=== PATIENT | male | born 1955 ===

== ENCOUNTER 2022-08-18 08:16 | Outpatient (CLI) | payer MEDICARE, SELFPAY ==
--- NOTE | 2022-08-18 | EST_ITS ---
Patient Info Name: Edwin Rhoades Age: 66 years : 1955 Gender: Male Ht: 66 in Wt: 225 lbs BSA: 2.22 m2 Exam Date: 08/18/2022 9:07 AM Exam Location: [facility] Stress Patient Status: Outpatient Admit Date: 08/18/2022 Staff Ordering Physician: Mely Alejandre Attending Provider: Mely Alejandre Exercise Technologist: Dilcia Bishop RDCS Exercise Physician: Jeronimo Neves DO Exam Type: CA stress test treadmill Study Info Indications R07.9 - Chest pain, unspecified A treadmill exercise stress test was performed. Summary 1. 1. Negative Matt exercise stress test for ischemic ST changes by ECG criteria. 2. 2. Reduced functional capacity, achieving 6.8 METs of workload. 3. 3. Baseline hypertension with hypertensive response to exercise. 4. 4. Appropriate HR response to exercise. 5. 5. Appropriate HR recovery at 1 minute post exercise. 6. 6. No imaging with stress testing. 7. 7. Patient informed of the above results. Protocol: Matt Stress ECG Details Stage: REST Duration (min): 1 min : 52 sec Speed (mph): 0.0 Grade (%): 0 HR (bpm): 68 SBP (mmHg): 155 DBP (mmHg): 86 METS: --- Stage: REST Duration (min): 5 min : 31 sec Speed (mph): 0.0 Grade (%): 0 HR (bpm): 88 SBP (mmHg): 155 DBP (mmHg): 86 METS: --- Stage: STAGE 1 Duration (min): 1 min : 0 sec Speed (mph): 1.7 Grade (%): 10 HR (bpm): 95 SBP (mmHg): 155 DBP (mmHg): 86 METS: --- Stage: STAGE 1 Duration (min): 2 min : 0 sec Speed (mph): 1.7 Grade (%): 10 HR (bpm): 106 SBP (mmHg): 155 DBP (mmHg): 86 METS: --- Stage: STAGE 1 Duration (min): 3 min : 0 sec Speed (mph): 1.7 Grade (%): 10 HR (bpm): 116 SBP (mmHg): 191 DBP (mmHg): 91 METS: --- Stage: STAGE 2 Duration (min): 1 min : 0 sec Speed (mph): 2.5 Grade (%): 12 HR (bpm): 129 SBP (mmHg): 191 DBP (mmHg): 91 METS: --- Stage: STAGE 2 Duration (min): 1 min : 12 sec Speed (mph): 2.5 Grade (%): 12 HR (bpm): 131 SBP (mmHg): 191 DBP (mmHg): 91 METS: --- Stage: RECOVERY Duration (min): 0 min : 47 sec Speed (mph): 0.0 Grade (%): 0 HR (bpm): 122 SBP (mmHg): 208 DBP (mmHg): 87 METS: --- Stage: RECOVERY Duration (min): 1 min : 47 sec Speed (mph): 0.0 Grade (%): 0 HR (bpm): 109 SBP (mmHg): 208 DBP (mmHg): 87 METS: --- Stage: RECOVERY Duration (min): 2 min : 47 sec Speed (mph): 0.0 Grade (%): 0 HR (bpm): 104 SBP (mmHg): 197 DBP (mmHg): 83 METS: --- Stage: RECOVERY Duration (min): 3 min : 47 sec Speed (mph): 0.0 Grade (%): 0 HR (bpm): 107 SBP (mmHg): 197 DBP (mmHg): 83 METS: --- Stage: RECOVERY Duration (min): 4 min : 47 sec Speed (mph): 0.0 Grade (%): 0 HR (bpm): 96 SBP (mmHg): 179 DBP (mmHg): 83 METS: --- Stage:
== END 2022-08-18 08:17 | disposition home or self-care (01) ==
DX: R07.9 Chest pain, unspecified (principal)
CPT/HCPCS: 93017

== ENCOUNTER 2024-08-07 11:29 | Inpatient (IN) | payer MEDICARE, SELFPAY ==
[2024-08-07] VITALS (10 sets, daily range): BP systolic 122–184; BP diastolic 75–94; PULSE 90–115; RESP 15–23; TEMP 36.4–37.2; O2SAT 94–98
--- NOTE | ~2024-08-07 | XR_ITS ---
EXAMINATION: XR chest 2V DATE: 08/07/2024 12:47 INDICATION: Shortness of breath. Vomiting. TECHNIQUE: Frontal and lateral views of the chest were obtained. COMPARISON: CT abdomen and pelvis 08/07/2024 FINDINGS: There is no pneumonia, pleural effusion, or pneumothorax. The heart size is normal. Surgica l clips in the right upper quadrant are likely from cholecystectomy. IMPRESSION: 1. No acute cardiopulmonary disease. Reviewed, dictated and finalized at location B.
--- NOTE | ~2024-08-07 | CT_ITS ---
CT abdomen pelvis wo con Ordering provider: Andreas Crespo MD History: 68 years Male with . abdominal pain . Comparison: August 09, 2024 Technique: CT abdomen and pelvis without IV and without oral contrast. Automated exposure control and iterative reconstruction technique were employed. The dose-length product was 1361.95 mGy-cm. Findings: VISUALIZED LOWER CHEST: Subsegmental atelectatic changes in the right lung base. UPPER ABDOMINAL ORGANS: Liver: Liver cirrhosis with lobulation of the outline. Fluid is seen around the liver which may indic ate ascites and less likely subcapsular hematoma. Gallbladder: Status post cholecystectomy. Spleen: Normal. Minimal fluid seen around the spleen. Stomach/duodenum: Nasogastric tube seen in the stomach with the tip in the right humerus. Pancreas: Atrophic. Adrenals: Normal. Kidneys: Tiny cyst in the left kidney midpole. Contrast is seen in both kidneys. PELVIC ORGANS: The bladder is normal. Contrast is seen in the bladder. BOWEL AND MESENTERY: Colon: No evidence of diverticulitis. Normal appendix. Small Bowel: Slight thickening of the wall of the bowel in the pelvic area is seen otherwise, No obst ruction. Peritoneum/mesentery: No free air. Ascites is seen in the right paracolic gutter and in the pelvis. N o mesenteric lymphadenopathy. Stranding in the mesentery of the pelvic area is seen which may indicate edema or inflammatory change s. Small mesenteric lymph nodes are seen. RETROPERITONEUM: Mild atheromatous disease of the abdominal aorta. No retroperitoneal lymphadenopat hy. MUSCULOSKELETAL: Superficial soft tissues: A fat-containing right inguinal hernia is noted. Otherwise, The superficial soft tissues are normal. Bones: Age appropriate degenerative changes of the spine. IMPRESSION: 1. Ascites seen in the pelvis, around the liver, right paracolic gutter and around the spleen. Possi bility of subcapsular hematoma around the liver cannot be excluded. 2. Liver cirrhosis. 3. Fat stranding in the mesentery which may indicate inflammatory changes or edema. 4. Thickened wall of the small bowel in the area of the pelvis which may indicate enteritis. No air is seen in the wall. Ischemia cannot be excluded. This thickening is slightly more prominent than the previous study. Reviewed, dictated and finalized at location A. IMPRESSION: 1. Ascites seen in the pelvis, around the liver, right paracolic gutter and ar ound the spleen. Possibility of subcapsular hematoma around the liver cannot be excluded. 2. Liver cirrhosis. 3. Fat stranding in the mesentery which may indicate inflammatory changes or e fanny. 4. Thickened wall of the small bowel in the area of the pelvis which may indic ate enteritis. No air is seen in the wall. Ischemia cannot be excluded. This th ickening is slightly more prominent than the previous study.
--- NOTE | ~2024-08-07 | US_ITS ---
EXAMINATION: US paracentesis abd w/image DATE: 08/07/2024 16:22 INDICATION: Ascites. TECHNIQUE: The procedure and its risks and benefits were discussed with the patient. Potential risks discussed included bleeding and infection. The skin was prepped and draped in sterile fashion. 1% lid ocaine was used for local anesthesia. Under ultrasound guidance, a 5 Fr catheter with trochar was adv anced into the ascites in the right upper quadrant. Fluid was aspirated into vacuum bottles. The cath eter was removed, and a dressing was applied. There were no immediate complications. FINDINGS: Ultrasound images demonstrate ascites and the catheter within the fluid. IMPRESSION: 1. Successful ultrasound-guided paracentesis yielding 800 mL of dark reddish fluid. Reviewed, dictated and finalized at location A. IMPRESSION: 1. Successful ultrasound-guided paracentesis yielding 800 mL of dark reddish f luid.
--- NOTE | ~2024-08-07 | XR_ITS ---
Upright portable view of the abdomen Clinical history: NG tube placement Findings: NG tube side-port probably just the GE junction. Bowel gas pattern is nonspecific. No evide nce for obstruction or free air. No abnormal mass lesion or calcification is seen. Osseous structures are intact. Impression: NG tube side-port just at the GE junction. Further advancement into the stomach recommended. Reviewed, dictated and finalized at location . T FINISHER Impression: NG tube side-port just at the GE junction. Further advancement into the stomach recommended.
--- NOTE | ~2024-08-07 | XR_ITS ---
EXAMINATION: XR abdomen obstructive series DATE: 08/09/2024 08:32 INDICATION: Adynamic ileus. TECHNIQUE: Upright and supine views of the abdomen on 4 radiographs were obtained. COMPARISON: CT abdomen and pelvis 08/07/24 FINDINGS: There are mildly dilated loops of small bowel. The colon is normal in caliber. No free intr aperitoneal gas. Surgical clips in the right upper quadrant are likely from cholecystectomy. IMPRESSION: 1. Dilated small bowel, likely adynamic ileus. Reviewed, dictated and finalized at location []
--- NOTE | ~2024-08-07 | CT_ITS ---
EXAMINATION: CT abdomen pelvis wo con DATE: 08/09/2024 16:59 INDICATION: R/O perforation TECHNIQUE: Computed tomography (CT) of the abdomen and pelvis was performed without intravenous contr ast. Automated exposure control and iterative reconstruction technique were employed. The dose-length product was 1535.24 mGy-cm. COMPARISON: X-ray abdomen, same date; CT abdomen pelvis 08/07/2024. FINDINGS: Lower thorax: Bibasilar scar/atelectasis. Coronary artery calcifications. Liver: Cirrhosis. Steatosis. Biliary/Gallbladder: Gallbladder is absent. No bile duct dilation. Pancreas: No mass or duct dilation. Spleen: Normal. Adrenals:No mass. Kidneys: No suspicious mass, obstructing stone, or hydronephrosis. GI tract: Dilated proximal small bowel but gradually narrows in caliber, without focal transition poi nt. Possible wall thickening in the distal small bowel. No pneumatosis. Appendix not confidently iden tified. Diverticulosis without diverticulitis. Mesentery/Peritoneum: Peritoneal and greater omentum nodularity. Moderate volume ascites. Retroperitoneum: No mass. Atherosclerotic abdominal aortic and/or arterial calcifications. Pelvis: Pelvic organs are within normal limits. Soft Tissues: Small uncomplicated fat-containing right inguinal and umbilical hernias. Bones: No acute osseous finding. IMPRESSION: Cirrhosis. Dilated proximal and mid small bowel without discrete transition point, likely representing ileus. Ea rly obstruction not excluded. No evidence of pneumoperitoneum. Likely persistent distal small bowel wall thickening as can be seen with enteritis. Peritoneal carcinomatosis with moderate ascites. Reviewed, dictated and finalized at location K. IMPRESSION: Cirrhosis. Dilated proximal and mid small bowel without discrete transition point, likely representing ileus. Early obstruction not excluded. No evidence of pneumoperito neum. Likely persistent distal small bowel wall thickening as can be seen with enteri tis. Peritoneal carcinomatosis with moderate ascites.
--- NOTE | ~2024-08-07 | XR_ITS ---
EXAMINATION: XR_FLGTUBINS_CR DATE: 08/10/2024 15:23 INDICATION: Ileus requiring nasogastric tube placement with unsuccessful nonguided attempted placemen t due to prior broken nose TECHNIQUE: Utilizing fluoroscopic observation the nasogastric tube was placed into the patient's left nares and advanced into the stomach. 2 fluoroscopic images were recorded. The amount of fluoroscopy time used during this procedure was 1.0 minutes. Total DAP was 3.437 Gycm^2. COMPARISON: None. FINDINGS: Image demonstrates the distal tip in proximal side port of the nasogastric tube position within the b rayne of the stomach. IMPRESSION: 1. Successful fluoroscopic guided placement of a nasogastric tube which is in expected position with distal tip and proximal side port in the body of the stomach. Reviewed, dictated and finalized at location A. IMPRESSION: 1. Successful fluoroscopic guided placement of a nasogastric tube which is in e xpected position with distal tip and proximal side port in the body of the stom ach.
--- NOTE | ~2024-08-07 | US_ITS ---
EXAMINATION: US paracentesis abd w/image DATE: 08/11/2024 10:47 INDICATION: Ascites. TECHNIQUE: The procedure and its risks and benefits were discussed with the patient. Potential risks discussed included bleeding and infection. The skin was prepped and draped in sterile fashion. 1% lid ocaine was used for local anesthesia. Under ultrasound guidance, a 5 Fr catheter with trochar was adv anced into the ascites in the lateral right abdomen. Fluid was aspirated into vacuum bottles. The cat heter was removed, and a dressing was applied. There were no immediate complications. FINDINGS: Ultrasound images demonstrate ascites and the catheter within the fluid. IMPRESSION: 1. Successful ultrasound-guided paracentesis yielding 4400 mL of reddish fluid. Reviewed, dictated and finalized at location A. IMPRESSION: 1. Successful ultrasound-guided paracentesis yielding 4400 mL of reddish fluid .
--- NOTE | ~2024-08-07 | CT_ITS ---
EXAMINATION:CT diagnostic chest w con DATE: 08/11/2024 10:49 INDICATION: Metastatic disease. TECHNIQUE: Computed tomography (CT) of the chest was performed with 75 mL Omnipaque 350 intravenous c ontrast. Automated exposure control and iterative reconstruction technique were employed. The dose-le ngth product (DLP) was 503.83 mGy-cm. COMPARISON: CT abdomen and pelvis 08/07/2024 FINDINGS: There is mild emphysema. There is mild atelectasis bilaterally. There is elevation of right hemidiaphragm. There is a small sliding hernia. The nasogastric tube tip is in the stomach. The live r demonstrates a nodular surface contour, consistent with cirrhosis. There is a moderate volume of as cites. Peritoneal fat stranding and nodularity are noted, consistent with carcinomatosis. There is ed immanuel in right chest wall and the posterior chest wall. There is severe cervical spondylosis and mild t horacic spondylosis. IMPRESSION: 1. Peritoneal carcinomatosis. Moderate volume of ascites. 2. Cirrhosis of the liver. Reviewed, dictated and finalized at location B.
--- NOTE | ~2024-08-07 | XR_ITS ---
EXAM: XR abdomen gastric tube insert DATE: 08/19/2024 18:55 HISTORY: NG Replacement. . COMPARISON: 08/18/2024. FINDINGS: Subsegmental dependent bilateral airspace disease. Cholecystectomy clips. NG tube, tip and side port project over the stomach. Normal bowel gas pattern. No degenerative changes in the spine. IMPRESSION: NG tube, in good position. Reviewed, dictated and finalized at location K. UCTION MACHINE TENDER IMPRESSION: NG tube, in good position.
--- NOTE | ~2024-08-07 | XR_ITS ---
Upright portable view of the abdomen Clinical history: NG tube placement Findings: NG tube side-port is just below the GE junction. Bowel gas pattern is nonspecific. No evide nce for obstruction or free air. No abnormal mass lesion or calcification is seen. Osseous structures are intact. Impression: NG tube side port just below the GE junction. Again, further advancement should be considered to ensu re adequate placement in the stomach. Reviewed, dictated and finalized at location . T CAPTAIN Impression: NG tube side port just below the GE junction. Again, further advancement should be considered to ensure adequate placement in the stomach.
--- NOTE | ~2024-08-07 | XR_ITS ---
Upright portable view of the abdomen Clinical history: NG tube placement Findings: NG tube is in satisfactory position. Bowel gas pattern is nonspecific. No evidence for obst ruction or free air. No abnormal mass lesion or calcification is seen. Osseous structures are intact. Impression: NG tube in satisfactory position. Reviewed, dictated and finalized at [facility]. T OF HOUSE MANAGER Impression: NG tube in satisfactory position.
--- NOTE | ~2024-08-07 | XR_ITS ---
EXAMINATION: XR abdomen gastric tube rechec DATE: 08/19/2024 10:25 INDICATION: Nasogastric tube adjustment. TECHNIQUE: An upright view of the abdomen was obtained. COMPARISON: Abdomen radiograph at 7:12 AM FINDINGS: The lower abdomen is excluded. There are dilated loops of small bowel. The nasogastric tube tip is in the distal stomach. Surgical clips in the right upper quadrant are likely from cholecystec escobar. A left upper extremity peripherally inserted central venous catheter (PICC) is seen with tip in the superior vena cava. IMPRESSION: 1. Nasogastric tube tip in the distal stomach. 2. Dilated small bowel, consistent with adynamic ileus versus small bowel obstruction. Reviewed, dictated and finalized at location A. ORE [employer] OFFICER IMPRESSION: 1. Nasogastric tube tip in the distal stomach. 2. Dilated small bowel, consistent with adynamic ileus versus small bowel obstr uction.
--- NOTE | ~2024-08-07 | XR_ITS ---
XR abdomen/kub 1V Ordering provider: NILESH Medina History: . Ileus vs SBO . Comparison: August 14, 2024 FINDINGS: BOWEL: Dilated small bowel loops are seen in the mid abdomen contrast is seen in the colon. Nasogastr ic tube is seen with the tip in the distal stomach. ORGANOMEGALY: None. SIGNIFICANT PATHOLOGIC CALCIFICATIONS: None. OTHER: No free air is seen under the diaphragm. IMPRESSION: Dilated small bowel with contrast seen in the large bowel which may indicate partial obstruction. Fol low-up advised. Reviewed, dictated and finalized at location A. TY ATTORNEY GENERAL IMPRESSION: Dilated small bowel with contrast seen in the large bowel which may indicate pa rtial obstruction. Follow-up advised.
--- NOTE | ~2024-08-07 | US_ITS ---
EXAMINATION: US right upper quadrant DATE: 08/08/2024 19:39 INDICATION: cirrhosis TECHNIQUE: Multiple grayscale and Doppler ultrasound images of the right upper quadrant were obtained . COMPARISON: CT abdomen pelvis 08/07/2024. FINDINGS: Pancreas not well visualized. The liver is small, with increased echogenicity and heterogen eous echotexture. Liver surface nodularity. Preserved hepatopetal flow in the main portal vein. Statu s post cholecystectomy. The common bile duct measures 5 mm. IMPRESSION: Cirrhosis. Reviewed, dictated and finalized at location K. IMPRESSION: Cirrhosis.
--- NOTE | ~2024-08-07 | CT_ITS ---
EXAMINATION: CT abdomen pelvis w con DATE: 08/07/2024 12:42 INDICATION: Right lower quadrant abdominal pain. TECHNIQUE: Computed tomography (CT) of the abdomen and pelvis was performed with 100 mL Omnipaque 350 intravenous contrast. Automated exposure control and iterative reconstruction technique were employe d. The dose-length product was 1461.03 mGy-cm. COMPARISON: None. FINDINGS: The visualized portions of lung bases demonstrate mild atelectasis. No pleural effusion. Th e heart size is normal. There are coronary artery calcifications. No pericardial effusion. There is a small sliding hiatal hernia. The liver demonstrates heterogeneous attenuation and surface nodularity , consistent with cirrhosis. There are changes of cholecystectomy. The spleen, pancreas, and adrenal glands are normal. There are cysts in the kidneys measuring up to 11 mm on the right. There is a righ t inguinal hernia containing fat. The prostate is mildly enlarged. There is diverticulosis of the col on without evidence of diverticulitis. There is wall thickening of the distal small bowel. The append ix is normal. There are no pathologically enlarged lymph nodes. There is a moderate volume of ascites . There is nodularity of the peritoneum and greater omentum. There are no pathologically enlarged lym ph nodes. There is severe lower lumbar spondylosis. There is mild chronic anterior wedging of T12 and L1 vertebral bodies. IMPRESSION: 1. Moderate volume of ascites with peritoneal nodularity, consistent with carcinomatosis. Diagnostic paracentesis is recommended. 2. Wall thickening of the distal small bowel, consistent with enteritis versus interstitial edema. 3. Cirrhosis of the liver. Reviewed, dictated and finalized at location B. IMPRESSION: 1. Moderate volume of ascites with peritoneal nodularity, consistent with carci nomatosis. Diagnostic paracentesis is recommended. 2. Wall thickening of the distal small bowel, consistent with enteritis versus interstitial edema. 3. Cirrhosis of the liver.
--- NOTE | ~2024-08-07 | XR_ITS ---
XR abdomen/kub 1V 08/17/2024 07:56 Indication: Small bowel obstruction Procedure: KUB Comparison: Comparison to multiple prior studies sequentially, with oldest reviewed study dated . Findings: Dilated small bowel loops. Moderate gas in the colon. NG tube in the stomach. There are cho lecystectomy clips.. Impression: 1: Mildly dilated small bowel may represent ileus or less likely partial obstruction. Reviewed, dictated and finalized at location B. P TECHNOLOGIST Impression: 1: Mildly dilated small bowel may represent ileus or less likely partial obstru ction.
--- NOTE | ~2024-08-07 | XR_ITS ---
EXAMINATION: XR abdomen obstructive series DATE: 08/19/2024 08:31 INDICATION: Adynamic ileus. TECHNIQUE: Upright and supine views of the abdomen on 4 radiographs were obtained. COMPARISON: CT abdomen and pelvis 08/11/2024 FINDINGS: There are multiple dilated loops of small bowel. The colon is decompressed. The nasogastric tube tip is in the proximal duodenum. Surgical clips in the right upper quadrant are likely from cho lecystectomy. No free intraperitoneal gas. IMPRESSION: 1. Dilated small bowel, consistent with adynamic ileus versus small bowel obstruction. 2. Nasogastric tube tip in the proximal duodenum. Reviewed, dictated and finalized at location A. STANT CREDIT MANAGER IMPRESSION: 1. Dilated small bowel, consistent with adynamic ileus versus small bowel obstr uction. 2. Nasogastric tube tip in the proximal duodenum.
--- NOTE | ~2024-08-07 | XR_ITS ---
EXAMINATION: XR chest 1V portable DATE: 08/12/2024 12:47 INDICATION: PICC line placement TECHNIQUE: frontal view of the chest was obtained. COMPARISON: Chest radiograph dated 08/07/[address] dated 08/11/2024 FINDINGS: Left upper extremity peripherally inserted central venous catheter (PICC) tip at the mid superior ve na cava. Nasogastric tube tip in proximal side port in the stomach. Elevation the right hemidiaphragm with associated basilar compressive atelectasis. Left lung remains clear. Heart size is within normal limits for AP technique. Cholecystectomy clips in the right upper quadrant. IMPRESSION: 1. Left PICC line tip at the midsuperior vena cava. 2. Elevation of the right hemidiaphragm with right basilar atelectasis, new since 07/30/2024 but seen on intervening CT from one day prior. Reviewed, dictated and finalized at location A. IMPRESSION: 1. Left PICC line tip at the midsuperior vena cava. 2. Elevation of the right hemidiaphragm with right basilar atelectasis, new sin ce 07/30/2024 but seen on intervening CT from one day prior.
--- NOTE | ~2024-08-07 | XR_ITS ---
EXAMINATION: XR sm bowel follow through DATE: 08/14/2024 17:20 INDICATION: Small bowel obstruction. TECHNIQUE: Oral contrast was administered, and a time course of radiographs of the abdomen was obtain ed. Fluoroscopy of the small bowel was not performed. Fluoroscopy exposure time was 0 minutes. The to rich number of images was 12. COMPARISON: CT abdomen and pelvis 08/11/2024 FINDINGS: There are multiple dilated loops of small bowel. The colon is normal in caliber. Surgical clips in th e right upper quadrant are likely from cholecystectomy. The nasogastric tube tip is in the distal sto mach. At 4 hours, the contrast remains in dilated small bowel. IMPRESSION: 1. Dilated small bowel with contrast remaining within the dilated small bowel at 4 hours, consistent with adynamic ileus versus distal obstruction. Reviewed, dictated and finalized at location A. GER PRINTING IMPRESSION: 1. Dilated small bowel with contrast remaining within the dilated small bowel a t 4 hours, consistent with adynamic ileus versus distal obstruction.
--- NOTE | ~2024-08-07 | XR_ITS ---
EXAMINATION: XR abdomen/kub 1V DATE: 08/19/2024 09:41 INDICATION: Nasogastric tube adjustment. TECHNIQUE: A supine view of the abdomen was obtained. COMPARISON: Abdomen radiographs at 7:54 AM FINDINGS: The lower abdomen is excluded. There are dilated loops of small bowel. The colon is decompr essed. Surgical clips in the right upper quadrant are likely from cholecystectomy. The nasogastric tu be tip is in the first portion of the duodenum. IMPRESSION: 1. Nasogastric tube tip in the first portion of the duodenum. 2. Dilated small bowel, consistent with adynamic ileus versus small bowel obstruction. Reviewed, dictated and finalized at location A. RACT SPECIALIST IMPRESSION: 1. Nasogastric tube tip in the first portion of the duodenum. 2. Dilated small bowel, consistent with adynamic ileus versus small bowel obstr uction.
--- NOTE | ~2024-08-07 | XR_ITS ---
EXAMINATION: XR abdomen obstructive series DATE: 08/08/2024 13:43 INDICATION: Abdominal distention. TECHNIQUE: Upright and supine views of the abdomen on 4 radiographs were obtained. COMPARISON: CT abdomen and pelvis 08/07/2024 FINDINGS: There are mildly dilated loops of small bowel. The colon is normal in caliber. No free intr aperitoneal gas. Surgical clips in the right upper quadrant are likely from cholecystectomy. IMPRESSION: 1. Mildly dilated small bowel, likely adynamic ileus. Reviewed, dictated and finalized at location B.
--- NOTE | ~2024-08-07 | XR_ITS ---
XR abdomen/kub 1V DATE: 08/13/2024 12:40 INDICATION: Ileus TECHNIQUE: 3 supine AP views of the abdomen COMPARISON: 08/11/2024 CT abdomen pelvis FINDINGS: There is a nasogastric tube within the stomach. Surgical clips, right upper quadrant, some with cholecystectomy. There is numerous gas distended dilated small bowel segments overlying the upper and midabdomen, some measuring in excess of 4 cm diameter; the distal small bowel is of normal caliber. The findings sugg est small bowel obstruction. The 08/11/2024 CT abdomen pelvis examination reveals extensive soft tissue infiltration of the omental fat which may be caused by chronic inflammation, including inflammatory conditions like tuberculosis , Crohn's disease or phlegmon as pancreatitis. Prominent small bowel wall thickening is noted on the CT abdomen examination, which may be responsible for the omental soft tissue infiltration. Is there h istory of Crohn's disease? Differential diagnosis for the omental soft tissue infiltration includes m alignant spread, including from stomach cancer, colon cancer, melanoma, lung and breast cancer IMPRESSION: Suspected small bowel obstruction NG tube in stomach Omental soft tissue infiltration noted on 08/11/2024 raises different diagnosis of inflammatory condit ion such as Crohn's disease versus malignant infiltration, for example from stomach, lung breast canc er and melanoma. Reviewed, dictated and finalized at Location A. Reviewed, dictated and finalized at location A. N SPLITTER IMPRESSION: Suspected small bowel obstruction NG tube in stomach Omental soft tissue infiltration noted on 08/11/2024 raises different diagnosis of inflammatory condition such as Crohn's disease versus malignant infiltration , for example from stomach, lung breast cancer and melanoma.
--- NOTE | 2024-08-07 11:40 | ED.ABDPAIN ---
HPI - Abdominal Pain General Chief Complaint: Abdominal Pain Stated Complaint: abd pain Time Seen by Provider: 08/07/24 11:35 Focused HPI: Patient is a 68-year-old male who presents to the ER with generalized abdominal pain that started this morning. He reports he has had nausea, vomiting, and diarrhea. Patient reports he has not had anything to eat or drink this morning. He reports he has never had this type of pain before. Patient denies chest pain or back pain. GENERAL: Well-appearing, well-nourished, and in mild acute distress d/t pain. HEAD: Normocephalic, atraumatic. CHEST: Clear to auscultation. ?Tachypnea. HEART: Tachycardia and rhythm.? NEURO: ?Alert and oriented x3. Patient screened in triage and initial orders placed.? ?Additional care and disposition to be based upon?diagnostic testing and treatment. Related Data Home Medications Medication Instructions Recorded Confirmed amlodipine 10 mg tablet 10 mg PO DAILY 08/07/24 08/07/24 diclofenac sodium 75 mg 75 mg PO DAILY 08/07/24 08/07/24 tablet,delayed release finasteride 5 mg tablet 5 mg PO DAILY 08/07/24 08/07/24 levothyroxine 25 mcg tablet 25 mcg PO DAILY 08/07/24 08/07/24 losartan 100 mg tablet 100 mg PO HS 08/07/24 08/07/24 tadalafil 5 mg tablet 5 mg PO DAILY 08/07/24 08/07/24 Allergies Allergy/AdvReac Type Severity Reaction Status Date / Time No Known Allergies Allergy Verified 08/07/24 18:39 [facility] Past Medical History Medical History (Updated 08/08/24 @ 10:13 by Gila Davila APRN) BPH (benign prostatic hyperplasia) Hypertension Hypothyroidism Family History Family History (Updated 08/07/24 @ 22:09 by Hailey Nye APRN) Other Diabetes mellitus Social History Social History Smoking packs per day: 1 Smoking cigarettes per day: 20.0 Years smoked: 23 Smoking pack-years: 23.00 Smoking status: Former smoker Tobacco type: cigarettes Alcohol intake: current Drinks per week: 35 Substance use: former Substance use type: amphetamines Do You Feel Safe in your Home?: Yes Lack of Transportation: No Lack of Food: Never True Current Housing: I Have Housing Concerned About Future Housing: No Difficulty Paying Gas/Electric Bills: No Difficulty Paying for Meds: No Currently Unemployed: No Education: Don't Know Difficulty w/ Childcare or Family Care: No Spiritual care concerns: No Course Vital Signs Vital signs: Vital Signs Temperature 36.4 C L 08/07/24 11:37 Pulse Rate 115 H 08/07/24 11:37 Respiratory Rate 18 08/07/24 11:37 Blood Pressure 122/84 08/07/24 11:37 Pulse Oximetry 98 08/07/24 11:37 Oxygen Delivery Room Air 08/07/24 11:37 Temperature 36.3 C L 08/08/24 08:00 Pulse Rate 88 08/08/24 08:00 Respiratory Rate 14 08/08/24 08:00 Blood Pressure 132/72 08/08/24 08:00 Pulse Oximetry 95 08/08/24 08:00 Oxygen Delivery Room Air 08/07/24 20:00 MDM - Abdominal Pain Lab Data 08/08/24 05:53 08/08/24 05:53 Labs: Lab Results 08/07/24 08/07/24 08/07/24 Range/Units 11:54 14:00 15:33 WBC 18.8 H (4.5-10.0) K/mm3 RBC 4.31 L (4.6-6.20) M/mm3 Hgb 13.8 L (14.0-18.0) g/dL Hct 41.4 L (42.0-52.0) % MCV 96.1 (80-100) fl MCH 32.0 (26-34) pg MCHC 33.3 (32-36) g/dl RDW 12.7 (11.5-14.5) % Plt Count 370 (150-375) k/mm3 MPV 9.6 (7.4-10.4) fl Immature Gran % (Auto) 0.7 H (0-0.5) % Neut % (Auto) 85.8 H (45.5-73.1) % Lymph % (Auto) 7.5 L (18.3-44.2) % [place] % (Auto) 5.6 (2.6-8.5) % Eos % (Auto) 0.0 (0-4.4) % Baso % (Auto) 0.4 (0.2-1.2) % Lymph # (Auto) 1.41 (0.9-3.2) K/mm3 [place] # (Auto) 1.1 H (0.1-0.6) K/mm3 Eos # (Auto) 0.0 (0-0.3) K/mm3 Baso # (Auto) 0.1 (0.0-0.1) K/mm3 Abs Immat Gran (auto) 0.13 H (0.00-0.031) K/mm3 Absolute Neuts (auto) 16.1 H (1.3-6.7) K/mm3 Absolute Nucleated RBC 0.000 (0.0-0.012) K/mm3 Nucleated RBC % 0.0 (0.0-0.2) % PT 15.3 H (11.1-14.7) Seconds INR 1.2 APTT 28.0 (22.3-36.8) Seconds Sodium 135 L (137-145) mmol/L Potassium 4.3 (3.4-5.0) mmol/L Chloride 97 L (98-107) mmol/L Carbon Dioxide 23 (22-30) mmol/L Anion Gap 15 H (4-12) mmol/L BUN 15 (9-20) mg/dL Creatinine 1.20 (0.7-1.3) mg/dL Estim Creat Clear Calc 59 ml/min Estimated GFR 60 (59 - ) Glucose 328 H (65-110) mg/dL Lactic Acid 3.3 H 2.7 H (0.7-2.0) mmol/L Calcium 8.7 (8.4-10.2) mg/dL Total Bilirubin 1.7 H (0.2-1.3) mg/dL AST 55 (17-59) U/L ALT 38 (6-50) U/L Alkaline Phosphatase 96 (38-126) U/L Troponin I < 0.012 (0.000-0.034) ng/mL Total Protein 9.0 H (6.3-8.2) g/dL Albumin 4.2 (3.5-5.1) g/dL Lipase 64 (23-300) U/L Peritoneal Source Peritoneal fluid Peritoneal Color Red (Colorless) Peritoneal Appearance Bloody A (Clear) Peritoneal RBC 33556 H (0-48408) /uL Periton Nuc Cells 2004 H (0-500) /uL Periton Neutrophils 20 (0-25) % Periton Lymphocytes 37 % Peritoneal Monocytes 36 % Periton Mesothelial 4 % Periton Macrophages 3 % Peritoneal Tot Protein Pending Peritoneal Albumin Pending Peritoneal LDH Pending Peritoneal Glucose Pending Peritoneal Amylase Pending Imaging Data Radiologist's impression: ITS Impressions Abdomen/Pelvis CT 08/07/24 13:05 IMPRESSION: 1. Moderate volume of ascites with peritoneal nodularity, consistent with carcinomatosis. Diagnostic paracentesis is recommended. 2. Wall thickening of the distal small bowel, consistent with enteritis versus interstitial edema. 3. Cirrhosis of the liver. Chest X-Ray 08/07/24 13:11 IMPRESSION: 1. No acute cardiopulmonary disease. Paracentesis Ultrasound 08/07/24 16:49 IMPRESSION: 1. Successful ultrasound-guided paracentesis yielding 800 mL of dark reddish fluid. Discharge Plan Discharge Clinical Impression: Ascites, Cirrhosis, Abdominal carcinomatosis Patient Disposition: Still a Patient Condition: Stable
--- NOTE | 2024-08-07 11:42 | ECG_ITS ---
Test Date: 2024-08-07 12:05:30 Measurements Intervals [place] Rate: 102 P: 30 [place]: 132 QRS: -68 QRSD: 90 T: 41 QT: 343 QTc: 448 Interpretive Statements SINUS TACHYCARDIA POSSIBLE LEFT ATRIAL ENLARGEMENT [-0.1mV P WAVE IN V1/V2] MARKED LEFT AXIS DEVIATION [QRS AXIS < -30] POSSIBLE RIGHT VENTRICULAR CONDUCTION DELAY [RSR (QR) IN V1/V2] POSSIBLE ANTERIOR MYOCARDIAL INFARCTION , PROBABLY OLD [30 ms Q WAVE IN V3/V4, OR R < 0.2 mV IN V4] No previous ECG available for comparison Electronically Signed On 08-07-2024 12:22:30 CDT by Ricardo Beckwith M.D.
[2024-08-07 12:02] LABS: Basophils Absolute Auto 0.1 K/mm3 (0.0-0.1); Basophils Percent Auto 0.4 % (0.2-1.2); Hematocrit 41.4 % (42.0-52.0); Hemoglobin 13.8 g/dL (14.0-18.0); Immature Granulocyte Absolute 0.13 K/mm3 (0.00-0.031); Immature Granulocyte Percent A 0.7 % (0-0.5); Lymphocytes Absolute Auto 1.41 K/mm3 (0.9-3.2); Lymphocytes Percent Auto 7.5 % (18.3-44.2); Mean Corpuscular HGB Conc 33.3 g/dl (32-36); Mean Corpuscular Volume 96.1 fl (80-100); Mean Platelet Volume 9.6 fl (7.4-10.4); Monocytes Absolute Auto 1.1 K/mm3 (0.1-0.6); Monocytes Percent Auto 5.6 % (2.6-8.5); Neutrophils Absolute Auto 16.1 K/mm3 (1.3-6.7); Neutrophils Percent Auto 85.8 % (45.5-73.1); Platelet Count Result 370 k/mm3 (150-375); Red Blood Count 4.31 M/mm3 (4.6-6.20); Red Cell Distribution Width 12.7 % (11.5-14.5); White Blood Count 18.8 K/mm3 (4.5-10.0)
[2024-08-07 12:13] LABS: INR 1.2; Prothrombin Time 15.3 Seconds (11.1-14.7)
[2024-08-07] MEDS: SODIUM CHLORIDE 0.9% IV 1,000 ML 999 ML IV CONT (12:16)
[2024-08-07 12:20] LABS: Lactic Acid Reflex 3.3 mmol/L (0.7-2.0)
[2024-08-07] MEDS: MORPHINE SULFATE (*CRX) 4 MG/ML INJ IV PUSH ×2 (12:21→21:05)
[2024-08-07] MEDS: ONDANSETRON INJ 4 MG/2 ML VIAL IV PUSH ×2 (12:21→19:49)
[2024-08-07 12:22] LABS: Alanine Aminotransferase 38 U/L (6-50); Albumin Level 4.2 g/dL (3.5-5.1); Alkaline Phosphatase 96 U/L (38-126); Anion Gap 15 mmol/L (4-12); Aspartate Amino Transferase 55 U/L (17-59); Bilirubin,Total 1.7 mg/dL (0.2-1.3); Blood Urea Nitrogen 15 mg/dL (9-20); Calcium 8.7 mg/dL (8.4-10.2); Carbon Dioxide 23 mmol/L (22-30); Chloride 97 mmol/L (98-107); Estimated CRCL calculation 59 ml/min; Estimated Glomerular Filt Rate 60; Glucose 328 mg/dL (65-110); Lipase 64 U/L (23-300); Potassium 4.3 mmol/L (3.4-5.0); Sodium 135 mmol/L (137-145)
[2024-08-07 12:33] LABS: Troponin I < 0.012 ng/mL (0.000-0.034)
[2024-08-07 14:59] LABS: Reflex Lactic Acid Yes or No Add Lactic
[2024-08-07] MEDS: HYDROmorphone HCL INJ (*CRX) 1 MG/ML SYR 0.5 MG IV PUSH (15:30)
[2024-08-07 15:51] LABS: Lactic Acid 2.7 mmol/L (0.7-2.0)
[2024-08-07] MEDS: cefTRIAXone 2 GM/NS 100 ML 2 GM/100 ML BAG IVPB (16:45)
[2024-08-07 16:57] LABS: Appearance Peritoneal Fluid Bloody (Clear); Color Peritoneal Fluid Red (Colorless); Source Peritoneal Fluid Peritoneal Fluid
[2024-08-07 16:58] LABS: Lymphocytes Peritoneal Fluid 37 %; Macrophages Peritoneal Fluid 3 %; Mesothelial Cells Peritoneal Fluid 4 %; Monocytes Peritoneal Fluid 36 %; Neutrophils Peritoneal Fluid 20 % (0-25); Nucleated Cells Peritoneal Flu 2004 /uL (0-500); RBC Peritoneal Fluid 36000 /uL (0-10000)
[2024-08-07] MEDS: SODIUM CHLORIDE 0.9% IV 3,200 ML/1,000 ML BAG 999 ML IV CONT ×4 (17:19→20:42)
--- NOTE | 2024-08-07 17:35 | P.HP_ITS ---
H&P: HPI History of Present Illness Date/Time: 08/07/24 17:35 Chief Complaint: abdominal pain Narrative: 68-year-old male presents to the hospital with abdominal pain that started this morning. patient states that he took a shot of Tequila for breakfast this morning and had acute abdominal pain afterwards followed by dry heaving nausea and diarrhea so he came into the hospital. Patient states he normally has 3 beers and 2 shots of liquor a day has never gone through withdrawals. He states that abdominal pain is worse with movement or palpation. Pain medications help a little bit. patient states due to chronic back pain, he drinks and Spends most of his day in his recliner. In the ED patient had leukocytosis at 18.8, anemia at 13.8, ion gap of 15, lactic acid at 3.3. patient CT showed Moderate volume of ascites with peritoneal nodularity, consistent with carcinomatosis. Diagnostic paracentesis is recommended, Wall thickening of the distal small bowel, consistent with enteritis versus interstitial edema, and Cirrhosis of the liver. In the ED he also had a peritoneal diagnostic tap which showed bloody fluid, cultures are pending. Patient received fluid bolus in the emergency room for possible sepsis Relating to SBP. Blood cultures are pending. Vital signs are stable. Review of Systems Constitutional: Constitutional: Reports difficulty sleeping, Reports fatigue, Reports lethargy and Reports weakness Eyes: Eyes: Reports no additional eye complaints ENT: Reports as per HPI Cardiovascular: Cardiovascular: Reports no additional cardiovascular complaints Respiratory: Respiratory: Reports no additional respiratory complaints Gastrointestinal: Gastrointestinal: Reports abdominal pain, Reports diarrhea and Reports nausea Genitourinary: Genitourinary: Reports no additional male genitourinary complaints Musculoskeletal: Musculoskeletal: Reports back pain Neurologic: Reports as per HPI Psychiatric: Psychiatric: Reports no additional psychiatric complaints [facility] Past Medical History Medical History (Updated 08/07/24 @ 22:22 by Hailey Nye APRN) BPH (benign prostatic hyperplasia) Hypertension Hypothyroidism Family History Family History (Updated 08/07/24 @ 22:09 by Hailey Nye APRN) Other Diabetes mellitus Social History Social History Smoking packs per day: 1 Smoking cigarettes per day: 20.0 Years smoked: 23 Smoking pack-years: 23.00 Smoking status: Former smoker Tobacco type: cigarettes Alcohol intake: current Drinks per week: 35 Substance use: former Substance use type: amphetamines Do You Feel Safe in your Home?: Yes Lack of Transportation: No Lack of Food: Never True Current Housing: I Have Housing Concerned About Future Housing: No Difficulty Paying Gas/Electric Bills: No Difficulty Paying for Meds: No Currently Unemployed: No Education: Don't Know Difficulty w/ Childcare or Family Care: No Spiritual care concerns: No Meds Home Medications and Allergies Home Medications Medication Instructions Recorded Confirmed Type amlodipine 10 mg tablet 10 mg PO DAILY 08/07/24 08/07/24 History diclofenac sodium 75 mg 75 mg PO DAILY 08/07/24 08/07/24 History tablet,delayed release finasteride 5 mg tablet 5 mg PO DAILY 08/07/24 08/07/24 History levothyroxine 25 mcg tablet 25 mcg PO DAILY 08/07/24 08/07/24 History losartan 100 mg tablet 100 mg PO HS 08/07/24 08/07/24 History tadalafil 5 mg tablet 5 mg PO DAILY 08/07/24 08/07/24 History Allergies Allergy/AdvReac Type Severity Reaction Status Date / Time No Known Allergies Allergy Verified 08/07/24 18:39 Vital Signs Vital Signs - 24 hr 08/07/24 11:37 08/07/24 11:47 08/07/24 13:19 Temperature 97.5 F L Pulse Rate 115 H 108 H 100 Respiratory Rate 18 22 H 20 Blood Pressure 122/84 141/86 H 152/82 H Pulse Oximetry 98 97 96 Oxygen Delivery Room Air 08/07/24 16:04 08/07/24 17:27 Temperature Pulse Rate 112 H 94 Respiratory Rate 23 H 15 Blood Pressure 159/94 H 128/75 Pulse Oximetry 95 94 Oxygen Delivery Exam Narrative: General: well appearing, appears stated age. HEENT: normocephalic, atraumatic. Mucous membranes moist. EOMI, PERRLA, bilateral sclera anicteric, no conjunctival injection. Neck supple without JVD, lymphadenopathy, or bruit. Respiratory: clear to ascultation bilaterally. No rales/rhonic/wheezes. Cardiovascular: Regular rate and rhythm, normal S1-S2 upon ascultation. No murmurs, rubs, or clicks. PMI is nondisplaced, capillary refill less than 3 second. Abdomen: largely distended, firm,tender to palpation. No rebound, no guarding. No CVA tenderness, no hepatosplenomegaly. Bowel sounds present to all four quadrants. No high pitch or tinkling sounds, Extremities: No cyanosis, clubbing, or edema present. Pulses are palpable 2/2. Active ROM to all four extremities. Neuro: Alert and orientated x 4. PERRLA. Cranial nerves 2-12 intact without focal deficit. Skin: Warm, dry, and intact, without rash, erythema, or lesion. Psych: pleasant, cooperative, normal speech, normal affect, no hallucinations, no dysarthia H&P: Results Labs Labs: Short CBC 08/07/24 Range/Units 11:54 WBC 18.8 H (4.5-10.0) K/mm3 Hgb 13.8 L (14.0-18.0) g/dL Hct 41.4 L (42.0-52.0) % Plt Count 370 (150-375) k/mm3 BMP 08/07/24 11:54 Sodium 135 L Potassium 4.3 Chloride 97 L Carbon Dioxide 23 BUN 15 Creatinine 1.20 Glucose 328 H Calcium 8.7 Cardiac Enzymes 08/07/24 Range/Units 11:54 Troponin I < 0.012 (0.000-0.034) ng/mL Liver Function 08/07/24 Range/Units 11:54 Total Bilirubin 1.7 H (0.2-1.3) mg/dL AST 55 (17-59) U/L ALT 38 (6-50) U/L Alkaline Phosphatase 96 (38-126) U/L Albumin 4.2 (3.5-5.1) g/dL Assessment and Plan Assessment and plan (1) Ascites: Code(s): R18.8 - Other ascites Status: Acute Assessment and Plan: ascites with peritoneal nodularity, consistent with carcinomatosis. paracentesis in the emergency room had bloody fluid fluid cultures pending will wait for pathology results before consulting Oncology for carcinomatosis patient may need GI for management of liver cirrhosis and therapeutic taps Rocephin for possible SBP blood cultures pending (2) Abdominal pain: Code(s): R10.9 - Unspecified abdominal pain Status: Acute Assessment and Plan: secondary to above pain management (3) Hypertension: Code(s): I10 - Essential (primary) hypertension Status: Acute Assessment and Plan: waiting for result of ascites cultures to make sure patient does not have SBP, if negative patient may resume home meds (4) Hypothyroidism: Code(s): E03.9 - Hypothyroidism, unspecified Status: Acute Assessment and Plan: restart home medication (5) BPH (benign prostatic hyperplasia): Code(s): N40.0 - Benign prostatic hyperplasia without lower urinary tract symptoms Status: Acute Assessment and Plan: restart home medication (6) Enteritis: Code(s): K52.9 - Noninfective gastroenteritis and colitis, unspecified Status: Acute Assessment and Plan: possible enteritis versus interstitial edema (7) Alcohol abuse: Code(s): F10.10 - Alcohol abuse, uncomplicated Status: Acute Assessment and Plan: [facility] protocol Ativan p.r.n. and banana bag telemetry (8) Liver cirrhosis, alcoholic: Code(s): K70.30 - Alcoholic cirrhosis of liver without ascites Status: Acute (9) Hyperglycemia: Code(s): R73.9 - Hyperglycemia, unspecified Status: Acute Assessment and Plan: no history of diabetes, not on home medications patient started on sliding scale insulin a.c. and HS hemoglobin A1c pending Quality VTE Prophylaxis VTE prophylaxis: mechanical ordered If No VTE Prophylaxis Answer both mechanical and pharmacologic: Reason no pharmacologic proph: medical contraindication active bleeding/bleeding risk Hospitalist MIPS Advance Care Plan I have confirmed that the patient's Advanced Care Plan is present, code status is documented, or surrogate decision maker is listed in patient medical record.: Yes Medication Reconciliation I have utilized all available resources to obtain, update and review the patients current medications (includes all prescriptions, OTC, herbals, cannabis, and nutritional supplements).: Yes
--- NOTE | 2024-08-07 18:46 | ADMGEN ---
This patient, Edwin Rhoades, was admitted to 2 Medical Room 258-01. Report received from RAJ Gambino. Patient/family oriented to hospital policies and general routines including ID bracelet, bed and alarms, visiting hours, pain management, procedures, bathroom and other care routines, personal items, smoking policy, room service/diet, and visiting hours. Information on how to activate the Rapid Response Team has been discussed. Patient/Family are encouraged to report perceived risks to care and to ask questions if they do not understand what they are told or what they should do.
[2024-08-07] MEDS: MORPHINE SULFATE (*CRX) 2 MG/ML INJ IV PUSH (19:48)
[2024-08-07] MEDS: SODIUM CHLORIDE 0.9% IV 1,000 ML 125 ML IV CONT (21:07)
[2024-08-07 22:00] LABS: Glucose Point of Care 376 mg/dl (65-105)
[2024-08-07] MEDS: HYDROcodone/acetaminophen (*CRX) 10-325 MG TABLET 1 TAB PO (22:03)
[2024-08-07] MEDS: INSULIN ASPART (*BKC) 100 UNITS/ML SUB-Q (22:04)
[2024-08-07 22:53] LABS: Glucose Point of Care 401 mg/dl (65-105)
[2024-08-07 23:03] LABS: INR 1.3; Prothrombin Time 16.4 Seconds (11.1-14.7)
[2024-08-07] MEDS: THIAMINE HCL INJ 100 MG, FOLIC ACID INJ 1 MG, MAGNESIUM SULFATE INJ 1 GM, MULTIVITAMINS... 125 MG IV CONT (23:04)
[2024-08-08] VITALS (11 sets, daily range): BP systolic 128–150; BP diastolic 64–92; PULSE 68–110; RESP 14–16; TEMP 36.2–36.6; O2SAT 93–97
[2024-08-08] MEDS: MORPHINE SULFATE (*CRX) 4 MG/ML INJ IV PUSH (02:13)
--- NOTE | 2024-08-08 02:22 | PC.NURSE ---
patient reports that his IV pump has been talking to him. pt states the IV pump said What is your name? this RN slowed down IV fluids, as two are currently going through the same pump concurrently and making quite a bit of noise, and patient reports that the voices stopped, now he just hear[s] what you hear . patient also reports that he has a history of chronic tinnitus from antibiotic use.
[2024-08-08] MEDS: HYDROcodone/acetaminophen (*CRX) 10-325 MG TABLET 1 TAB PO (04:21)
[2024-08-08] MEDS: ONDANSETRON INJ 4 MG/2 ML VIAL IV PUSH ×3 (04:28→20:29)
[2024-08-08 04:32] LABS: Glucose Point of Care 341 mg/dl (65-105)
[2024-08-08] MEDS: SODIUM CHLORIDE 0.9% IV 1,000 ML 125 ML IV CONT (05:23)
[2024-08-08] MEDS: LEVOTHYROXINE SODIUM 25 MCG TABLET PO (05:27)
[2024-08-08 06:18] LABS: Basophils Percent Auto 0.2 % (0.2-1.2); Hematocrit 35.8 % (42.0-52.0); Hemoglobin 11.9 g/dL (14.0-18.0); Immature Granulocyte Absolute 0.12 K/mm3 (0.00-0.031); Immature Granulocyte Percent A 0.7 % (0-0.5); Lymphocytes Absolute Auto 1.21 K/mm3 (0.9-3.2); Lymphocytes Percent Auto 7.4 % (18.3-44.2); Mean Corpuscular HGB Conc 33.2 g/dl (32-36); Mean Corpuscular Hemoglobin 32.4 pg (26-34); Mean Corpuscular Volume 97.5 fl (80-100); Mean Platelet Volume 9.9 fl (7.4-10.4); Monocytes Absolute Auto 1.5 K/mm3 (0.1-0.6); Monocytes Percent Auto 8.9 % (2.6-8.5); Neutrophils Absolute Auto 13.6 K/mm3 (1.3-6.7); Neutrophils Percent Auto 82.8 % (45.5-73.1); Platelet Count Result 256 k/mm3 (150-375); Red Blood Count 3.67 M/mm3 (4.6-6.20); Red Cell Distribution Width 13.1 % (11.5-14.5); White Blood Count 16.4 K/mm3 (4.5-10.0)
[2024-08-08 06:40] LABS: Anion Gap 8 mmol/L (4-12); Blood Urea Nitrogen 17 mg/dL (9-20); Calcium 6.7 mg/dL (8.4-10.2); Carbon Dioxide 22 mmol/L (22-30); Chloride 103 mmol/L (98-107); Estimated CRCL calculation 73 ml/min; Estimated Glomerular Filt Rate > 60; Glucose 313 mg/dL (65-110); Potassium 3.9 mmol/L (3.4-5.0); Sodium 133 mmol/L (137-145)
[2024-08-08 08:05] LABS: Glucose Point of Care 330 mg/dl (65-105)
[2024-08-08] MEDS: FINASTERIDE 5 MG TABLET PO (08:59)
[2024-08-08] MEDS: THIAMINE HCL 100 MG TABLET PO (08:59)
[2024-08-08] MEDS: DOCUSATE SODIUM 100 MG CAPSULE PO ×2 (08:59→17:15)
[2024-08-08] MEDS: FOLIC ACID 1 MG TABLET PO (08:59)
[2024-08-08] MEDS: INSULIN ASPART (*BKC) 100 UNITS/ML SUB-Q ×4 (09:19→20:47)
--- NOTE | 2024-08-08 11:12 | PC.NURSE ---
On 08/08/24, the student, [Hazel Puri], provided care and completed [facility] documentation on this patient. I have reviewed the student's documentation and agree with the findings.
[2024-08-08 11:58] LABS: Glucose Point of Care 313 mg/dl (65-105)
[2024-08-08] MEDS: INSULIN ASPART (*BKC) 100 UNITS/ML 6 UNITS SUB-Q (12:19)
[2024-08-08] MEDS: HYDROcodone/acetaminophen (*CRX) 5-325 MG TABLET 1 TAB PO ×3 (12:50→20:53)
[2024-08-08 13:44] LABS: Ammonia 19 umol/L (9-30)
[2024-08-08] MEDS: cefTRIAXone 2 GM/NS 100 ML 2 GM/100 ML BAG IVPB (13:57)
--- NOTE | 2024-08-08 14:24 | PM.IMPN ---
Progress Note: A&P Assessment and Plan (1) Ascites: Code(s): R18.8 - Other ascites Status: Acute Assessment and Plan: Patient presents with abdominal pain. CT Abd/pelvis showing ascites with peritoneal nodularity, consistent with carcinomatosis, wall thickening of the distal SB and liver cirrhosis. Paracentesis in the emergency room had bloody fluid. Rocephin x 1 given. RBC 36K, WBC 2K with 20 PMNs. Absolute PMNs 400. 256 if corrected for RBCs. Since >250 PMN cells, will continue IV abx for peritonitis. Gram stain showing WBC but no organisms. Pathology pending. BCx NGTD GI consult Check AFP, CEA, CA19-9. Follow up on pathology and cultures (2) Abdominal pain: Code(s): R10.9 - Unspecified abdominal pain Status: Acute Assessment and Plan: Most likely abdominal pain related to above. Abdominal xray showing mildly dilated loops of SB. No free air. Change to clear liquid diet. Increase activity. Repeat xray in the morning. (3) Enteritis: Code(s): K52.9 - Noninfective gastroenteritis and colitis, unspecified Status: Acute Assessment and Plan: CT scan showing thickening of the distal SB. Possible enteritis versus interstitial edema. Could be the etiology of the ileus. As above (4) Diabetes mellitus: Code(s): E11.9 - Type 2 diabetes mellitus without complications Status: Acute Assessment and Plan: A1c 9.0%. The patient's blood glucose was reviewed on 08/07 Glucose poorly controlled. Started on Lantus and Novolog at meals but will back off since moving to a clear liquid diet due to the ileus. Continue AccuCheks covering with sliding scale. Hypoglycemia protocol available as needed. 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 CIWA protocol started. CIWA score 4-9 range. He appears to be having auditory hallucinations. Ammonia level low so doubt hepatic encephalopathy and more likely from withdrawal. Librium and Ativan available as needed. Will stop Morphine for pain since could contribute to confusion. (6) Hypertension: Code(s): I10 - Essential (primary) hypertension Status: Acute Assessment and Plan: Patient's blood pressure was reviewed on 10/28 Blood pressure remains reasonably well controlled. Will continue to monitor (7) Liver cirrhosis, alcoholic: Code(s): K70.30 - Alcoholic cirrhosis of liver without ascites Status: Acute Assessment and Plan: Patient with liver cirrhosis noted on imaging and most likely from alcoholism. Not been to our facility before No liver masses noted. HCC usually metastasizes to lung, LN and bone. Check liver US. Check AFP. GI consulted (8) BPH (benign prostatic hyperplasia): Code(s): N40.0 - Benign prostatic hyperplasia without lower urinary tract symptoms Status: Acute Assessment and Plan: Proscar resumed. Monitor for retention (9) Hypothyroidism: Code(s): E03.9 - Hypothyroidism, unspecified Status: Acute Assessment and Plan: Continue levothyroxine. Check TSH Plan DVT prophylaxis - SCDs Code status - full Subjective Date/time seen: 08/08/24 14:24 Interval history: 68yo male with BPH, HTN and hypothyroidism here for abdominal pain. No CP or SOB. Was having lower abd pain but this has improved. Now with more sharp RUQ abd pain. Last BM was yesterday. Having nausea. Patient felt the IV pump was talking with him. Exam Narrative: AF 97.2 150/84 105 16 97% ra Gen - NARD Chest - CTA bilaterally, nml RR CV - RRR S1/S2. Tele showing PVCs Abd - Soft, obese, diffusely tender. Tympanitic upper abd. +guarding. Ext - No pedal edema Neuro - Alert and orientedx4. Nonfocal exam. No tremors. Psych - Nml mood and affect Skin - Warm and dry Objective Data Vital Signs Vital Signs: Vital Signs - 24 hr 08/07/24 16:04 08/07/24 17:27 08/07/24 18:24 Temperature Pulse Rate 112 H 94 90 Respiratory Rate 23 H 15 18 Blood Pressure 159/94 H 128/75 184/84 H Pulse Oximetry 95 94 98 Oxygen Delivery 08/07/24 18:59 08/07/24 20:00 08/07/24 21:31 Temperature 97.6 F 99.0 F Pulse Rate 102 H 97 Respiratory Rate 20 16 Blood Pressure 138/89 153/87 H Pulse Oximetry 95 95 Oxygen Delivery Room Air 08/08/24 00:20 08/07/24 20:00 08/08/24 00:00 Temperature 97.6 F Pulse Rate 83 95 88 Respiratory Rate 16 Blood Pressure 133/64 Pulse Oximetry 96 Oxygen Delivery 08/08/24 04:00 08/08/24 05:35 08/08/24 08:00 Temperature 97.9 F 97.4 F L Pulse Rate 83 78 80 Respiratory Rate 14 14 Blood Pressure 132/71 132/72 Pulse Oximetry 93 95 Oxygen Delivery 08/08/24 08:00 08/08/24 10:20 08/08/24 11:53 Temperature 97.2 F L Pulse Rate 88 105 H Respiratory Rate 16 Blood Pressure 150/84 H Pulse Oximetry 97 Oxygen Delivery Room Air 08/07/24 19:00 Temperature 97.6 F Pulse Rate 102 H Respiratory Rate 20 Blood Pressure 138/89 Pulse Oximetry 95 Oxygen Delivery Intake/Output Intake/Output: Intake & Output 08/05/24 08/06/24 08/07/24 08/08/24 23:59 23:59 23:59 23:59 Intake Total 6199.3 3068.0 Output Total 800 Balance 5399.3 3068.0 Meds/Results Medications: Active Medications Generic Name Dose Route Start Last Admin Trade Name Freq PRN Reason Stop Dose Admin Acetaminophen 650 mg 08/07/24 17:40 Acetaminophen 325 Mg Tablet PO Q4H PRN Mild Pain (1-3) or Fever Hydrocodone Bitart/Acetaminophen 1 tab 08/07/24 15:49 08/08/24 12:50 Hydrocodone/Acetaminophen (*Crx) 5-325 Mg Tablet PO 1 tab Q4H PRN Administration Pain Rated 4-6 Chlordiazepoxide HCl 25 mg 08/08/24 12:53 Chlordiazepoxide (*Crx) 25 Mg Capsule PO Q6H PRN Withdrawal CIWA 8-15 Dextrose 12.5 gm 08/07/24 22:17 Dextrose 50% 25 Gm/50 Ml Syringe IV PUSH PRN PRN Hypoglycemia Protocol Docusate Sodium 100 mg 08/08/24 09:00 08/08/24 08:59 Docusate Sodium 100 Mg Capsule PO 100 mg BID MEGGAN Administration Finasteride 5 mg 08/08/24 09:00 08/08/24 08:59 Finasteride 5 Mg Tablet PO 5 mg DAILY MEGGAN Administration Folic Acid 1 mg 08/08/24 09:00 08/08/24 08:59 Folic Acid 1 Mg Tablet PO 1 mg DAILY MEGGAN Administration Glucagon 1 mg 08/07/24 22:17 Glucagon For Inj 1 Mg Vial IM PRN PRN Hypoglycemia Protocol Glucose 15 gm 08/07/24 22:17 Glucose Oral Gel 15 Gm Of Glucse In 37.5 Gm Tube PO PRN PRN Hypoglycemia Protocol Sodium Chloride 1,000 mls @ 70 mls/hr 08/07/24 20:35 08/08/24 13:56 Normal Saline Iv IV CONT Infused .[id number] MEGGAN Infusion Dextrose 1,000 mls @ 100 mls/hr 08/07/24 22:17 Dextrose 5% 1,000 Ml IVPB PRN PRN Hypoglycemia Protocol Ceftriaxone Sodium 2 gm in 100 mls @ 200 mls/hr 08/08/24 14:00 08/08/24 13:57 Rocephin 2 Gm/Ns 100 Ml IVPB 200 mls/hr Q24H MEGGAN Administration Insulin Aspart 1 - 3 units 08/07/24 21:00 08/07/24 22:04 Insulin Aspart (*Bkc) 100 Units/Ml SUB-Q 3 units HS [facility] Administration Protocol Insulin Aspart 3 - 6 units 08/08/24 08:00 08/08/24 12:19 Insulin Aspart (*Bkc) 100 Units/Ml SUB-Q 5 units TIDWM [facility] Administration Protocol Insulin Aspart 6 units 08/08/24 08:00 08/08/24 12:19 Insulin Aspart (*Bkc) 100 Units/Ml 0.05 units/kg (6 units) 6 units SUB-Q Administration TIDWM [facility] Insulin Glargine 17 units 08/08/24 21:00 Insulin Glargine (*Bkc) 100 Units/Ml 0.15 units/kg (17 units) SUB-Q [facility] Levothyroxine Sodium 25 mcg 08/08/24 06:30 08/08/24 05:27 Levothyroxine Sodium 25 Mcg Tablet PO 25 mcg DAILY@0630 MEGGAN Administration Lorazepam 2 mg 08/08/24 07:42 Lorazepam Inj (*Crx) 2 Mg/Ml Vial IV PUSH Q4H PRN CIWA >15 Ondansetron HCl 4 mg 08/07/24 15:49 08/08/24 09:05 Ondansetron Inj 4 Mg/2 Ml Vial IV PUSH 4 mg Q4H PRN Administration Nausea Thiamine HCl 100 mg 08/08/24 09:00 08/08/24 08:59 Thiamine Hcl 100 Mg Tablet PO 100 mg QAM MEGGAN Administration Radiology Results: ITS Impressions Abdomen/Pelvis CT 08/07/24 13:05 IMPRESSION: 1. Moderate volume of ascites with peritoneal nodularity, consistent with carcinomatosis. Diagnostic paracentesis is recommended. 2. Wall thickening of the distal small bowel, consistent with enteritis versus interstitial edema. 3. Cirrhosis of the liver. Chest X-Ray 08/07/24 13:11 IMPRESSION: 1. No acute cardiopulmonary disease. Paracentesis Ultrasound 08/07/24 16:49 IMPRESSION: 1. Successful ultrasound-guided paracentesis yielding 800 mL of dark reddish fluid. Abdomen X-Ray 08/08/24 13:44 IMPRESSION: 1. Mildly dilated small bowel, likely adynamic ileus. Labs Labs: Laboratory Results - last 24 hr 08/07/24 08/07/24 08/07/24 14:00 15:33 21:27 WBC RBC Hgb Hct MCV MCH MCHC RDW Plt Count MPV Immature Gran % (Auto) Neut % (Auto) Lymph % (Auto) [place] % (Auto) Eos % (Auto) Baso % (Auto) Lymph # (Auto) [place] # (Auto) Eos # (Auto) Baso # (Auto) Abs Immat Gran (auto) Absolute Neuts (auto) Absolute Nucleated RBC Nucleated RBC % PT INR Sodium Potassium Chloride Carbon Dioxide Anion Gap BUN Creatinine Estim Creat Clear Calc Estimated GFR Glucose POC Capillary Glucose 376 H Hemoglobin A1c Lactic Acid 2.7 H Calcium Ammonia Peritoneal Source Peritoneal fluid Peritoneal Color Red Peritoneal Appearance Bloody A Peritoneal RBC 67869 H Periton Nuc Cells 2004 H Periton Neutrophils 20 [place]iton Lymphocytes 37 Peritoneal Monocytes 36 Periton Mesothelial 4 Periton Macrophages 3 08/07/24 08/07/24 08/08/24 22:39 22:50 04:22 WBC RBC Hgb Hct MCV MCH MCHC RDW Plt Count MPV Immature Gran % (Auto) Neut % (Auto) Lymph % (Auto) [place] % (Auto) Eos % (Auto) Baso % (Auto) Lymph # (Auto) [place] # (Auto) Eos # (Auto) Baso # (Auto) Abs Immat Gran (auto) Absolute Neuts (auto) Absolute Nucleated RBC Nucleated RBC % PT 16.4 H INR 1.3 Sodium Potassium Chloride Carbon Dioxide Anion Gap BUN Creatinine Estim Creat Clear Calc Estimated GFR Glucose POC Capillary Glucose 401 H 341 H Hemoglobin A1c Lactic Acid Calcium Ammonia Peritoneal Source Peritoneal Color Peritoneal Appearance Peritoneal RBC Periton Nuc Cells Periton Neutrophils Periton Lymphocytes Peritoneal Monocytes Periton Mesothelial Periton Macrophages 08/08/24 08/08/24 08/08/24 05:53 07:54 11:44 WBC 16.4 H RBC 3.67 L Hgb 11.9 L Hct 35.8 L MCV 97.5 MCH 32.4 MCHC 33.2 RDW 13.1 Plt Count 256 MPV 9.9 Immature Gran % (Auto) 0.7 H Neut % (Auto) 82.8 H Lymph % (Auto) 7.4 L [place] % (Auto) 8.9 H Eos % (Auto) 0.0 Baso % (Auto) 0.2 Lymph # (Auto) 1.21 [place] # (Auto) 1.5 H Eos # (Auto) 0.0 Baso # (Auto) 0.0 Abs Immat Gran (auto) 0.12 H Absolute Neuts (auto) 13.6 H Absolute Nucleated RBC 0.000 Nucleated RBC % 0.0 PT INR Sodium 133 L Potassium 3.9 Chloride 103 Carbon Dioxide 22 Anion Gap 8 BUN 17 Creatinine 1.00 Estim Creat Clear Calc 73 Estimated GFR > 60 Glucose 313 H POC Capillary Glucose 330 H 313 H Hemoglobin A1c 9.0 H Lactic Acid Calcium 6.7 L Ammonia Peritoneal Source Peritoneal Color Peritoneal Appearance Peritoneal RBC Periton Nuc Cells Periton Neutrophils Periton Lymphocytes Peritoneal Monocytes Periton Mesothelial Periton Macrophages 08/08/24 13:25 WBC RBC Hgb Hct MCV MCH MCHC RDW Plt Count MPV Immature Gran % (Auto) Neut % (Auto) Lymph % (Auto) [place] % (Auto) Eos % (Auto) Baso % (Auto) Lymph # (Auto) [place] # (Auto) Eos # (Auto) Baso # (Auto) Abs Immat Gran (auto) Absolute Neuts (auto) Absolute Nucleated RBC Nucleated RBC % PT INR Sodium Potassium Chloride Carbon Dioxide Anion Gap BUN Creatinine Estim Creat Clear Calc Estimated GFR Glucose POC Capillary Glucose Hemoglobin A1c Lactic Acid Calcium Ammonia 19 Peritoneal Source Peritoneal Color Peritoneal Appearance Peritoneal RBC Periton Nuc Cells Periton Neutrophils Periton Lymphocytes Peritoneal Monocytes Periton Mesothelial Periton Macrophages
[2024-08-08 16:54] LABS: Glucose Point of Care 229 mg/dl (65-105)
[2024-08-08] MEDS: SODIUM CHLORIDE 0.9% IV 1,000 ML 70 ML IV CONT (17:15)
--- NOTE | 2024-08-08 18:00 | WPDGICN ---
Assessment and Plan Assessment and plan (1) Cirrhosis: Code(s): K74.60 - Unspecified cirrhosis of liver Status: Acute Assessment and Plan: The patient has a liver morphology compatible with cirrhosis, however, there is also imaging evidence of peritoneal thickening compatible with carcinomatosis. The ascitic fluid obtained is not compatible with what we expected for cirrhosis, and his serum albumin level is normal. With cirrhotic ascites albumin levels are usually below normal. Nevertheless, albumin level in the ascitic fluid is still pending, which is critical to calculate the serum ascites albumin gradient (SAAG < 1.1 = malignant etiology in his case). Therefore, the most likely cause of this new onset ascitic fluid is peritoneal carcinomatosis for all the above-mentioned evidence. A diagnostic laparoscopy is indicated, and surgical consultation is advised. (2) Liver cirrhosis, alcoholic: Code(s): K70.30 - Alcoholic cirrhosis of liver without ascites Status: Acute (3) Ascites: Code(s): R18.8 - Other ascites Status: Acute GI Consult Note Consult date/time: 08/08/24 18:00 Reason for consult: ascites. HPI: Edwin Rhoades is a 68 year old male With a history of poorly controlled diabetes, alcohol abuse. he started to notice increased abdominal girth a few days ago, associated with abdominal pain/ discomfort. He underwent paracentesis obtaining 800 cc of dark bloody fluid. The corrected absolute PMN count is borderline abnormal, and a dose of Rocephin is administered. Of note, CT scan showed liver with nodular aspect compatible with cirrhosis, but, more notably, there was peritoneal nodularity compatible with carcinomatosis. Review of Systems Review of Systems: All systems reviewed & are unremarkable except as noted in HPI and below PMFSH Past Medical History Medical History (Updated 08/08/24 @ 14:43 by eNhemiah Espinal MD) BPH (benign prostatic hyperplasia) Hypertension Hypothyroidism Family History Family History (Updated 08/07/24 @ 22:09 by Hailey Nye APRN) Other Diabetes mellitus Social History Social History Smoking packs per day: 1 Smoking cigarettes per day: 20.0 Years smoked: 23 Smoking pack-years: 23.00 Smoking status: Former smoker Tobacco type: cigarettes Alcohol intake: current Drinks per week: 35 Substance use: former Substance use type: amphetamines Do You Feel Safe in your Home?: Yes Lack of Transportation: No Lack of Food: Never True Current Housing: I Have Housing Concerned About Future Housing: No Difficulty Paying Gas/Electric Bills: No Difficulty Paying for Meds: No Currently Unemployed: No Education: Don't Know Difficulty w/ Childcare or Family Care: No Spiritual care concerns: No Meds Home Medications and Allergies Home Medications Medication Instructions Recorded Confirmed Type amlodipine 10 mg tablet 10 mg PO DAILY 08/07/24 08/07/24 History diclofenac sodium 75 mg 75 mg PO DAILY 08/07/24 08/07/24 History tablet,delayed release finasteride 5 mg tablet 5 mg PO DAILY 08/07/24 08/07/24 History levothyroxine 25 mcg tablet 25 mcg PO DAILY 08/07/24 08/07/24 History losartan 100 mg tablet 100 mg PO HS 08/07/24 08/07/24 History tadalafil 5 mg tablet 5 mg PO DAILY 08/07/24 08/07/24 History Allergies Allergy/AdvReac Type Severity Reaction Status Date / Time No Known Allergies Allergy Verified 08/07/24 18:39 Vital Signs Vital Signs - 24 hr 08/07/24 18:24 08/07/24 18:59 08/07/24 20:00 Temperature 97.6 F Pulse Rate 90 102 H Respiratory Rate 18 20 Blood Pressure 184/84 H 138/89 Pulse Oximetry 98 95 Oxygen Delivery Room Air 08/07/24 21:31 08/08/24 00:20 08/07/24 20:00 Temperature 99.0 F 97.6 F Pulse Rate 97 83 95 Respiratory Rate 16 16 Blood Pressure 153/87 H 133/64 Pulse Oximetry 95 96 Oxygen Delivery 08/08/24 00:00 08/08/24 04:00 08/08/24 05:35 Temperature 97.9 F Pulse Rate 88 83 78 Respiratory Rate 14 Blood Pressure 132/71 Pulse Oximetry 93 Oxygen Delivery 08/08/24 08:00 08/08/24 08:00 08/08/24 10:20 Temperature 97.4 F L Pulse Rate 80 88 Respiratory Rate 14 Blood Pressure 132/72 Pulse Oximetry 95 Oxygen Delivery Room Air 08/08/24 11:53 08/08/24 12:00 08/08/24 16:00 Temperature 97.2 F L Pulse Rate 105 H 106 H 106 H Respiratory Rate 16 Blood Pressure 150/84 H Pulse Oximetry 97 Oxygen Delivery 08/07/24 19:00 Temperature 97.6 F Pulse Rate 102 H Respiratory Rate 20 Blood Pressure 138/89 Pulse Oximetry 95 Oxygen Delivery Exam Const: General: cooperative and healthy appearing Resp: Effort & Inspection: normal respiratory effort and able to speak in complete sentences Auscultation: clear to auscultation bilaterally Cardio: Rate: regular rate Rhythm: regular rhythm GI: Inspection: distended GI Palp: Yes Firmness to palpation present (GI) Auscultation: normal bowel sounds Other: Marked shifting dullness. Skin: General skin exam: normal color Psych: Appearance: grossly normal Mental Status: mental status grossly normal Results Labs 08/08/24 05:53 08/08/24 05:53 Labs: Short CBC 08/08/24 Range/Units 05:53 WBC 16.4 H (4.5-10.0) K/mm3 Hgb 11.9 L (14.0-18.0) g/dL Hct 35.8 L (42.0-52.0) % Plt Count 256 (150-375) k/mm3 [facility] 08/08/24 05:53 Sodium 133 L Potassium 3.9 Chloride 103 Carbon Dioxide 22 BUN 17 Creatinine 1.00 Glucose 313 H Calcium 6.7 L
[2024-08-08] MEDS: LORazepam INJ (*CRX) 2 MG/ML VIAL IV PUSH (20:35)
[2024-08-08] MEDS: INSULIN GLARGINE (*BKC) 100 UNITS/ML 10 UNITS SUB-Q (20:48)
[2024-08-08 21:08] LABS: Glucose Point of Care 237 mg/dl (65-105)
[2024-08-09] VITALS (12 sets, daily range): BP systolic 154–179; BP diastolic 77–98; PULSE 95–110; RESP 16–20; TEMP 36.2–36.7; O2SAT 92–98; BMI 41.3
[2024-08-09] MEDS: HYDROcodone/acetaminophen (*CRX) 5-325 MG TABLET 1 TAB PO ×3 (01:48→20:34)
[2024-08-09 06:23] LABS: Basophils Absolute Auto 0.1 K/mm3 (0.0-0.1); Basophils Percent Auto 0.3 % (0.2-1.2); Hematocrit 36.9 % (42.0-52.0); Hemoglobin 12.2 g/dL (14.0-18.0); Immature Granulocyte Absolute 0.21 K/mm3 (0.00-0.031); Immature Granulocyte Percent A 0.9 % (0-0.5); Lymphocytes Absolute Auto 1.37 K/mm3 (0.9-3.2); Lymphocytes Percent Auto 5.9 % (18.3-44.2); Mean Corpuscular HGB Conc 33.1 g/dl (32-36); Mean Corpuscular Hemoglobin 32.3 pg (26-34); Mean Corpuscular Volume 97.6 fl (80-100); Monocytes Absolute Auto 1.7 K/mm3 (0.1-0.6); Monocytes Percent Auto 7.4 % (2.6-8.5); Neutrophils Percent Auto 85.5 % (45.5-73.1); Platelet Count Result 319 k/mm3 (150-375); Red Blood Count 3.78 M/mm3 (4.6-6.20); Red Cell Distribution Width 13.2 % (11.5-14.5); White Blood Count 23.4 K/mm3 (4.5-10.0)
[2024-08-09 06:34] LABS: Alanine Aminotransferase 21 U/L (6-50); Albumin Level 3.2 g/dL (3.5-5.1); Alkaline Phosphatase 69 U/L (38-126); Anion Gap 10 mmol/L (4-12); Aspartate Amino Transferase 29 U/L (17-59); Bilirubin,Total 0.8 mg/dL (0.2-1.3); Blood Urea Nitrogen 20 mg/dL (9-20); Calcium 6.7 mg/dL (8.4-10.2); Carbon Dioxide 19 mmol/L (22-30); Chloride 103 mmol/L (98-107); Estimated CRCL calculation 73 ml/min; Estimated Glomerular Filt Rate > 60; Glucose 249 mg/dL (65-110); Potassium 3.9 mmol/L (3.4-5.0); Sodium 132 mmol/L (137-145)
[2024-08-09 07:03] LABS: Carcinoembryonic Antigen 61.2 ng/mL (0.0-3.0)
[2024-08-09 07:36] LABS: Glucose Point of Care 267 mg/dl (65-105)
[2024-08-09] MEDS: LEVOTHYROXINE SODIUM 25 MCG TABLET PO (07:59)
--- NOTE | 2024-08-09 08:01 | P.PNIM_ITS ---
Progress Note: A&P Assessment and Plan (1) Ascites: Code(s): R18.8 - Other ascites Status: Acute Assessment and Plan: Patient presents with abdominal pain. CT Abd/pelvis showing ascites with peritoneal nodularity, consistent with carcinomatosis, wall thickening of the distal SB and liver cirrhosis. Paracentesis in the emergency room had bloody fluid. Rocephin x 1 given. RBC 36K, WBC 2K with 20 PMNs. Absolute PMNs 400. 256 if corrected for RBCs. Since >250 PMN cells, will continue IV Rocephin abx for peritonitis. Gram stain showing WBC but no organisms. Pathology pending. BCx NGTD GI recommending diagnostic laparoscopic surgery Services consult pending recommendations AFP pending, CA19 antigen pending Follow up on pathology and cultures CEA 61.2, TSH 5.4 (2) Abdominal pain: Code(s): R10.9 - Unspecified abdominal pain Status: Acute Assessment and Plan: Most likely abdominal pain related to above. Abdominal xray showing mildly dilated loops of SB. No free air. Change to clear liquid diet. Increase activity. Repeat xray in the morning. bowel movement 08/09 (3) Enteritis: Code(s): K52.9 - Noninfective gastroenteritis and colitis, unspecified Status: Acute Assessment and Plan: CT scan showing thickening of the distal SB. Possible enteritis versus interstitial edema. Could be the etiology of the ileus. As above (4) Diabetes mellitus: Code(s): E11.9 - Type 2 diabetes mellitus without complications Status: Acute Assessment and Plan: A1c 9.0%. The patient's blood glucose was reviewed on 08/07 Glucose poorly controlled. Started on Lantus and Novolog at meals but will back off since moving to a clear liquid diet due to the ileus. Continue AccuCheks covering with sliding scale. Hypoglycemia protocol available as needed. 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 CIWA protocol started. CIWA score 4-9 range. He appears to be having auditory hallucinations. Ammonia level low so doubt hepatic encephalopathy and more likely from withdrawal. Librium and Ativan available as needed. Will stop Morphine for pain since could contribute to confusion. (6) Hypertension: Code(s): I10 - Essential (primary) hypertension Status: Acute Assessment and Plan: Patient's blood pressure was reviewed on 08/07 Blood pressure remains reasonably well controlled. Will continue to monitor (7) Liver cirrhosis, alcoholic: Code(s): K70.30 - Alcoholic cirrhosis of liver without ascites Status: Acute Assessment and Plan: Patient with liver cirrhosis noted on imaging and most likely from alcoholism. Not been to our facility before No liver masses noted. HCC usually metastasizes to lung, LN and bone. Check liver US- liver is small, with increased echogenicity and heterogeneous echotexture. Liver surface nodularity. Preserved hepatopetal flow in the main portal vein AFP pending GI consulted (8) BPH (benign prostatic hyperplasia): Code(s): N40.0 - Benign prostatic hyperplasia without lower urinary tract symptoms Status: Acute Assessment and Plan: Proscar resumed. Monitor for retention (9) Hypothyroidism: Code(s): E03.9 - Hypothyroidism, unspecified Status: Acute Assessment and Plan: Continue levothyroxine. 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 a.m. labs with leukocytosis with a dramatic increase this morning calcium 6.7, CEA 61.2, per GI the patient is a diagnostic laparoscope and surgery Services was consulted, pending recommendations Patient possibly having alcohol withdrawal hallucinations. Review of Systems Constitutional: Constitutional: Reports difficulty sleeping, Reports fatigue, Reports lethargy and Reports weakness Eyes: Eyes: Reports no additional eye complaints ENT: Reports as per HPI Cardiovascular: Cardiovascular: Reports no additional cardiovascular complai nts Respiratory: Respiratory: Reports no additional respiratory complaints Gastrointestinal: Gastrointestinal: Reports abdominal pain, Reports diarrhea and Reports nausea Genitourinary: Genitourinary: Reports no additional male genitourinary complaints Musculoskeletal: Musculoskeletal: Reports back pain Neurologic: Reports as per HPI and Reports weakness Psychiatric: Psychiatric: Reports no additional psychiatric complaints Endocrine: Endocrine: Reports fatigue Exam Narrative: AF 97.2 150/84 105 16 97% ra Gen - NARD Chest - CTA bilaterally, nml RR CV - RRR S1/S2. Tele showing PVCs Abd - Soft, obese, diffusely tender. Tympanitic upper abd. +guarding. Ext - No pedal edema Neuro - Alert and orientedx4. Nonfocal exam. No tremors. Psych - Nml mood and affect Skin - Warm and dry Objective Data Vital Signs Vital Signs: Vital Signs - 24 hr 08/08/24 10:20 08/08/24 11:53 08/08/24 12:00 Temperature 97.2 F L Pulse Rate 105 H 106 H Pulse Rate [Monitor] Respiratory Rate 16 Blood Pressure 150/84 H Pulse Oximetry 97 Oxygen Delivery Room Air 08/08/24 16:00 08/08/24 16:00 08/08/24 20:34 Temperature 97.7 F Pulse Rate 106 H 68 Pulse Rate [Monitor] 110 H Respiratory Rate 16 Blood Pressure 128/68 Pulse Oximetry 93 Oxygen Delivery 08/08/24 20:40 08/08/24 20:50 08/08/24 20:01 Temperature 97.6 F Pulse Rate 102 H 107 H Pulse Rate [Monitor] Respiratory Rate 16 Blood Pressure 138/92 H Pulse Oximetry 96 Oxygen Delivery Room Air 08/09/24 00:04 08/09/24 00:00 08/09/24 00:00 Temperature 97.8 F Pulse Rate 98 100 Pulse Rate [Monitor] 98 Respiratory Rate 16 Blood Pressure 162/98 H Pulse Oximetry 95 Oxygen Delivery 08/09/24 04:00 08/09/24 04:00 08/09/24 06:58 Temperature 97.8 F Pulse Rate 95 100 Pulse Rate [Monitor] 95 Respiratory Rate 16 Blood Pressure 164/87 H Pulse Oximetry 98 Oxygen Delivery 08/09/24 07:56 Temperature 97.2 F L Pulse Rate 101 H Pulse Rate [Monitor] Respiratory Rate 20 Blood Pressure 154/83 H Pulse Oximetry 92 Oxygen Delivery Intake/Output Intake/Output: Intake & Output 08/06/24 08/07/24 08/08/24 08/09/24 23:59 23:59 23:59 23:59 Intake Total 6199.3 3168.0 400 Output Total 800 Balance 5399.3 3168.0 400 Meds/Results Medications: Active Medications Generic Name Dose Route Start Last Admin Trade Name Freq PRN Reason Stop Dose Admin Acetaminophen 650 mg 08/07/24 17:40 Acetaminophen 325 Mg Tablet PO Q4H PRN Mild Pain (1-3) or Fever Hydrocodone Bitart/Acetaminophen 1 tab 08/07/24 15:49 08/09/24 01:48 Hydrocodone/Acetaminophen (*Crx) 5-325 Mg Tablet PO 1 tab Q4H PRN Administration Pain Rated 4-6 Chlordiazepoxide HCl 25 mg 08/08/24 12:53 Chlordiazepoxide (*Crx) 25 Mg Capsule PO Q6H PRN Withdrawal CIWA 8-15 Dextrose 12.5 gm 08/07/24 22:17 Dextrose 50% 25 Gm/50 Ml Syringe IV PUSH PRN PRN Hypoglycemia Protocol Docusate Sodium 100 mg 08/08/24 09:00 08/08/24 17:15 Docusate Sodium 100 Mg Capsule PO 100 mg BID MEGGAN Administration Finasteride 5 mg 08/08/24 09:00 08/08/24 08:59 Finasteride 5 Mg Tablet PO 5 mg DAILY MEGGAN Administration Folic Acid 1 mg 08/08/24 09:00 08/08/24 08:59 Folic Acid 1 Mg Tablet PO 1 mg DAILY MEGGAN Administration Glucagon 1 mg 08/07/24 22:17 Glucagon For Inj 1 Mg Vial IM PRN PRN Hypoglycemia Protocol Glucose 15 gm 08/07/24 22:17 Glucose Oral Gel 15 Gm Of Glucse In 37.5 Gm Tube PO PRN PRN Hypoglycemia Protocol Sodium Chloride 1,000 mls @ 70 mls/hr 08/07/24 20:35 08/08/24 17:15 Normal Saline Iv IV CONT 70 mls/hr .[id number] MEGGAN Administration Dextrose 1,000 mls @ 100 mls/hr 08/07/24 22:17 Dextrose 5% 1,000 Ml IVPB PRN PRN Hypoglycemia Protocol Ceftriaxone Sodium 2 gm in 100 mls @ 200 mls/hr 08/08/24 14:00 08/08/24 14:27 Rocephin 2 Gm/Ns 100 Ml IVPB Infused Q24H MEGGAN Infusion Insulin Aspart 1 - 3 units 08/07/24 21:00 08/08/24 20:47 Insulin Aspart (*Bkc) 100 Units/Ml SUB-Q 1 units HS MEGGAN Administration Protocol Insulin Aspart 3 - 6 units 08/08/24 08:00 08/08/24 17:16 Insulin Aspart (*Bkc) 100 Units/Ml SUB-Q 3 units TIDWM MEGGAN Administration Protocol Insulin Glargine 10 units 08/08/24 21:00 08/08/24 20:48 Insulin Glargine (*Bkc) 100 Units/Ml SUB-Q 10 units HS MEGGAN Administration Levothyroxine Sodium 25 mcg 08/08/24 06:30 08/09/24 07:59 Levothyroxine Sodium 25 Mcg Tablet PO 25 mcg DAILY@0630 MEGGAN Administration Lorazepam 2 mg 08/08/24 07:42 08/08/24 20:35 Lorazepam Inj (*Crx) 2 Mg/Ml Vial IV PUSH 2 mg Q4H PRN Administration CIWA >15 Ondansetron HCl 4 mg 08/07/24 15:49 08/08/24 20:29 Ondansetron Inj 4 Mg/2 Ml Vial IV PUSH 4 mg Q4H PRN Administration Nausea Thiamine HCl 100 mg 08/08/24 09:00 08/08/24 08:59 Thiamine Hcl 100 Mg Tablet PO 100 mg QAM MEGGAN Administration Radiology Results: ITS Impressions Abdomen/Pelvis CT 08/07/24 13:05 IMPRESSION: 1. Moderate volume of ascites with peritoneal nodularity, consistent with carcinomatosis. Diagnostic paracentesis is recommended. 2. Wall thickening of the distal small bowel, consistent with enteritis versus interstitial edema. 3. Cirrhosis of the liver. Chest X-Ray 08/07/24 13:11 IMPRESSION: 1. No acute cardiopulmonary disease. Paracentesis Ultrasound 08/07/24 16:49 IMPRESSION: 1. Successful ultrasound-guided paracentesis yielding 800 mL of dark reddish fluid. Abdomen X-Ray 08/08/24 13:44 IMPRESSION: 1. Mildly dilated small bowel, likely adynamic ileus. Upper Quadrant Ultrasound 08/08/24 20:04 IMPRESSION: Cirrhosis. Labs Labs: Laboratory Results - last 24 hr 08/08/24 08/08/24 08/08/24 07:54 11:44 13:25 WBC RBC Hgb Hct MCV MCH MCHC RDW Plt Count MPV Immature Gran % (Auto) Neut % (Auto) Lymph % (Auto) Baker % (Auto) Eos % (Auto) Baso % (Auto) Lymph # (Auto) Baker # (Auto) Eos # (Auto) Baso # (Auto) Abs Immat Gran (auto) Absolute Neuts (auto) Absolute Nucleated RBC Nucleated RBC % Sodium Potassium Chloride Carbon Dioxide Anion Gap BUN Creatinine Estim Creat Clear Calc Estimated GFR Glucose POC Capillary Glucose 330 H 313 H Calcium Total Bilirubin AST ALT Alkaline Phosphatase Ammonia 19 Total Protein Albumin Carcinoembryonic Ag TSH (Reflex) 08/08/24 08/08/24 08/09/24 16:51 20:36 05:43 WBC 23.4 H RBC 3.78 L Hgb 12.2 L Hct 36.9 L MCV 97.6 MCH 32.3 MCHC 33.1 RDW 13.2 Plt Count 319 MPV 10.0 Immature Gran % (Auto) 0.9 H Neut % (Auto) 85.5 H Lymph % (Auto) 5.9 L Baker % (Auto) 7.4 Eos % (Auto) 0.0 Baso % (Auto) 0.3 Lymph # (Auto) 1.37 Baker # (Auto) 1.7 H Eos # (Auto) 0.0 Baso # (Auto) 0.1 Abs Immat Gran (auto) 0.21 H Absolute Neuts (auto) 20.0 H Absolute Nucleated RBC 0.000 Nucleated RBC % 0.0 Sodium 132 L Potassium 3.9 Chloride 103 Carbon Dioxide 19 L Anion Gap 10 BUN 20 Creatinine 1.00 Estim Creat Clear Calc 73 Estimated GFR > 60 Glucose 249 H POC Capillary Glucose 229 H 237 H Calcium 6.7 L Total Bilirubin 0.8 AST 29 ALT 21 Alkaline Phosphatase 69 Ammonia Total Protein 7.0 Albumin 3.2 L Carcinoembryonic Ag 61.2 H TSH (Reflex) 08/09/24 08/09/24 05:44 07:33 WBC RBC Hgb Hct MCV MCH MCHC RDW Plt Count MPV Immature Gran % (Auto) Neut % (Auto) Lymph % (Auto) Baker % (Auto) Eos % (Auto) Baso % (Auto) Lymph # (Auto) Baker # (Auto) Eos # (Auto) Baso # (Auto) Abs Immat Gran (auto) Absolute Neuts (auto) Absolute Nucleated RBC Nucleated RBC % Sodium Potassium Chloride Carbon Dioxide Anion Gap BUN Creatinine Estim Creat Clear Calc Estimated GFR Glucose POC Capillary Glucose 267 H Calcium Total Bilirubin AST ALT Alkaline Phosphatase Ammonia Total Protein Albumin Carcinoembryonic Ag TSH (Reflex) 5.450 H Quality VTE Prophylaxis VTE prophylaxis: mechanical ordered
[2024-08-09 08:39] LABS: Free T4 Free Thyroxine Reflex 1.25 ng/dL (0.78-2.19)
[2024-08-09] MEDS: FOLIC ACID 1 MG TABLET PO (09:00)
[2024-08-09] MEDS: THIAMINE HCL 100 MG TABLET PO (09:00)
[2024-08-09] MEDS: DOCUSATE SODIUM 100 MG CAPSULE PO ×2 (09:00→17:35)
[2024-08-09] MEDS: FINASTERIDE 5 MG TABLET PO (09:00)
[2024-08-09] MEDS: INSULIN ASPART (*BKC) 100 UNITS/ML SUB-Q ×4 (09:02→20:25)
[2024-08-09 09:45] LABS: Total Triiodothyronine (T3) 0.97 NG/ML (0.97-1.69)
--- NOTE | 2024-08-09 09:48 | P.PNIM_ITS ---
Progress Note: A&P Assessment and Plan (1) Ascites: Code(s): R18.8 - Other ascites Status: Acute (2) Abdominal pain: Code(s): R10.9 - Unspecified abdominal pain Status: Acute (3) Enteritis: Code(s): K52.9 - Noninfective gastroenteritis and colitis, unspecified Status: Acute (4) Diabetes mellitus: Code(s): E11.9 - Type 2 diabetes mellitus without complications Status: Acute (5) Alcohol abuse: Code(s): F10.10 - Alcohol abuse, uncomplicated Status: Acute (6) Hypertension: Code(s): I10 - Essential (primary) hypertension Status: Acute (7) Liver cirrhosis, alcoholic: Code(s): K70.30 - Alcoholic cirrhosis of liver without ascites Status: Acute (8) BPH (benign prostatic hyperplasia): Code(s): N40.0 - Benign prostatic hyperplasia without lower urinary tract symptoms Status: Acute (9) Hypothyroidism: Code(s): E03.9 - Hypothyroidism, unspecified Status: Acute Plan (1) Ascites: Code(s): R18.8 - Other ascites Status: Acute Assessment and Plan: Patient presents with abdominal pain. CT Abd/pelvis showing ascites with peritoneal nodularity, consistent with carcinomatosis, wall thickening of the distal SB and liver cirrhosis. Paracentesis in the emergency room had bloody fluid. Rocephin x 1 given. RBC 36K, WBC 2K with 20 PMNs. Absolute PMNs 400. 256 if corrected for RBCs. Since >250 PMN cells, will continue IV abx for peritonitis. Gram stain showing WBC but no organisms. Pathology pending. BCx NGTD f/u AFP, CEA, CA19-9. Follow up on pathology and cultures GI consult is appreciated, suspecting peritoneal carcinomatosis for all the above-mentioned evidence. rec diagnostic laparoscopy is indicated Consult general surgeon for evaluation treatment (2) Abdominal pain: Code(s): R10.9 - Unspecified abdominal pain Status: Acute Assessment and Plan: Most likely abdominal pain related to above. Abdominal xray showing mildly dilated loops of SB. No free air. Change to clear liquid diet. Increase activity. Repeat xray in the morning. (3) Enteritis: Code(s): CT scan showing thickening of the distal SB. Possible enteritis versus interstitial edema. pt has leukocytosis, it is trending up, patient also has tachycardia tachypnea, Possible infective enteritis Will start Zosyn IV (4) Diabetes mellitus: Code(s): E11.9 - Type 2 diabetes mellitus without complications Status: Acute Assessment and Plan: A1c 9.0%. The patient's blood glucose was reviewed on 08/07 Glucose poorly controlled. Started on Lantus and Novolog at meals but will back off since moving to a clear liquid diet due to the ileus. Continue AccuCheks covering with sliding scale. Hypoglycemia protocol available as needed. 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 CIWA protocol started. CIWA score 4-9 range. He appears to be having auditory hallucinations. Ammonia level low so doubt hepatic encephalopathy and more likely from withdrawal. Librium and Ativan available as needed. Will stop Morphine for pain since could contribute to confusion. (6) Hypertension: Code(s): I10 - Essential (primary) hypertension Status: Acute Assessment and Plan: Patient's blood pressure was reviewed on 08/07 Blood pressure remains reasonably well controlled. Will continue to monitor (7) Liver cirrhosis, alcoholic: Code(s): K70.30 - Alcoholic cirrhosis of liver without ascites Status: Acute Assessment and Plan: Patient with liver cirrhosis noted on imaging and most likely from alcoholism. Not been to our facility before No liver masses noted. HCC usually metastasizes to lung, LN and bone. Check liver US. Check AFP. GI consulted (8) BPH (benign prostatic hyperplasia): Code(s): N40.0 - Benign prostatic hyperplasia without lower urinary tract symptoms Status: Acute Assessment and Plan: Proscar resumed. Monitor for retention (9) Hypothyroidism: Code(s): E03.9 - Hypothyroidism, unspecified Status: Acute Assessment and Plan: Continue levothyroxine. Check TSH Plan DVT prophylaxis - SCDs Code status - full Subjective Date/time seen: 08/09/24 09:48 Interval history: Patient is afebrile, blood pressure stable, patient has a tachycardia tachypnea, leukocytosis trending up 23,000. Patient has some abdomen pain, denies nausea vomiting diarrhea Exam Narrative: GENERAL: Pleasant, in no acute distress. Well-nourished. - EYES: EOMI. Anicteric. - HENT: Moist mucous membranes. - LUNGS: Clear to auscultation bilateral ly, no wheezing, rhonchi, or rales. - CARDIOVASCULAR: Regular rate and rhyth m. No murmur. No JVD. - ABDOMEN: Soft, lower abdominal tender and severely distended. No palpable masses. - EXTREMITIES: No edema. Peripheral puls es 2+. Non-tender. - NEUROLOGIC: No focal neurological defi cits. CN II-XII grossly intact. - PSYCHIATRIC: Awake, Alert and oriented x 3. Appropriate mood and affect. - SKIN: No rashes or lesions. Warm. - LYMPH: No cervical lymphadenopathy. Objective Data Vital Signs Vital Signs: Vital Signs - 24 hr 08/08/24 10:20 08/08/24 11:53 08/08/24 12:00 Temperature 97.2 F L Pulse Rate 105 H 106 H Pulse Rate [Monitor] Respiratory Rate 16 Blood Pressure 150/84 H Pulse Oximetry 97 Oxygen Delivery Room Air 08/08/24 16:00 08/08/24 16:00 08/08/24 20:34 Temperature 97.7 F Pulse Rate 106 H 68 Pulse Rate [Monitor] 110 H Respiratory Rate 16 Blood Pressure 128/68 Pulse Oximetry 93 Oxygen Delivery 08/08/24 20:40 08/08/24 20:50 08/08/24 20:01 Temperature 97.6 F Pulse Rate 102 H 107 H Pulse Rate [Monitor] Respiratory Rate 16 Blood Pressure 138/92 H Pulse Oximetry 96 Oxygen Delivery Room Air 08/09/24 00:04 08/09/24 00:00 08/09/24 00:00 Temperature 97.8 F Pulse Rate 98 100 Pulse Rate [Monitor] 98 Respiratory Rate 16 Blood Pressure 162/98 H Pulse Oximetry 95 Oxygen Delivery 08/09/24 04:00 08/09/24 04:00 08/09/24 06:58 Temperature 97.8 F Pulse Rate 95 100 Pulse Rate [Monitor] 95 Respiratory Rate 16 Blood Pressure 164/87 H Pulse Oximetry 98 Oxygen Delivery 08/09/24 07:56 08/09/24 09:01 Temperature 97.2 F L Pulse Rate 101 H Pulse Rate [Monitor] Respiratory Rate 20 Blood Pressure 154/83 H Pulse Oximetry 92 96 Oxygen Delivery Room Air Intake/Output Intake/Output: Intake & Output 08/06/24 08/07/24 08/08/24 08/09/24 23:59 23:59 23:59 23:59 Intake Total 6199.3 3168.0 400 Output Total 800 Balance 5399.3 3168.0 400 Meds/Results Medications: Active Medications Generic Name Dose Route Start Last Admin Trade Name Freq PRN Reason Stop Dose Admin Acetaminophen 650 mg 08/07/24 17:40 Acetaminophen 325 Mg Tablet PO Q4H PRN Mild Pain (1-3) or Fever Hydrocodone Bitart/Acetaminophen 1 tab 08/07/24 15:49 08/09/24 01:48 Hydrocodone/Acetaminophen (*Crx) 5-325 Mg Tablet PO 1 tab Q4H PRN Administration Pain Rated 4-6 Chlordiazepoxide HCl 25 mg 08/08/24 12:53 Chlordiazepoxide (*Crx) 25 Mg Capsule PO Q6H PRN Withdrawal CIWA 8-15 Dextrose 12.5 gm 08/07/24 22:17 Dextrose 50% 25 Gm/50 Ml Syringe IV PUSH PRN PRN Hypoglycemia Protocol Docusate Sodium 100 mg 08/08/24 09:00 08/09/24 09:00 Docusate Sodium 100 Mg Capsule PO 100 mg BID MEGGAN Administration Finasteride 5 mg 08/08/24 09:00 08/09/24 09:00 Finasteride 5 Mg Tablet PO 5 mg DAILY MEGGAN Administration Folic Acid 1 mg 08/08/24 09:00 08/09/24 09:00 Folic Acid 1 Mg Tablet PO 1 mg DAILY MEGGAN Administration Glucagon 1 mg 08/07/24 22:17 Glucagon For Inj 1 Mg Vial IM PRN PRN Hypoglycemia Protocol Glucose 15 gm 08/07/24 22:17 Glucose Oral Gel 15 Gm Of Glucse In 37.5 Gm Tube PO PRN PRN Hypoglycemia Protocol Sodium Chloride 1,000 mls @ 70 mls/hr 08/07/24 20:35 08/08/24 17:15 Normal Saline Iv IV CONT 70 mls/hr .[id number] MEGGAN Administration Dextrose 1,000 mls @ 100 mls/hr 08/07/24 22:17 Dextrose 5% 1,000 Ml IVPB PRN PRN Hypoglycemia Protocol Ceftriaxone Sodium 2 gm in 100 mls @ 200 mls/hr 08/08/24 14:00 08/08/24 14:27 Rocephin 2 Gm/Ns 100 Ml IVPB Infused Q24H MEGGAN Infusion Insulin Aspart 1 - 3 units 08/07/24 21:00 08/08/24 20:47 Insulin Aspart (*Bkc) 100 Units/Ml SUB-Q 1 units HS [facility] Administration Protocol Insulin Aspart 3 - 6 units 08/08/24 08:00 08/09/24 09:02 Insulin Aspart (*Bkc) 100 Units/Ml SUB-Q 4 units TIDWM [facility] Administration Protocol Insulin Glargine 10 units 08/08/24 21:00 08/08/24 20:48 Insulin Glargine (*Bkc) 100 Units/Ml SUB-Q 10 units HS [facility] Administration Levothyroxine Sodium 25 mcg 08/08/24 06:30 08/09/24 07:59 Levothyroxine Sodium 25 Mcg Tablet PO 25 mcg DAILY@0630 [facility] Administration Lorazepam 2 mg 08/08/24 07:42 08/08/24 20:35 Lorazepam Inj (*Crx) 2 Mg/Ml Vial IV PUSH 2 mg Q4H PRN Administration CIWA >15 Ondansetron HCl 4 mg 08/07/24 15:49 08/08/24 20:29 Ondansetron Inj 4 Mg/2 Ml Vial IV PUSH 4 mg Q4H PRN Administration Nausea Thiamine HCl 100 mg 08/08/24 09:00 08/09/24 09:00 Thiamine Hcl 100 Mg Tablet PO 100 mg QAM [facility] Administration Radiology Results: ITS Impressions Abdomen/Pelvis CT 08/07/24 13:05 IMPRESSION: 1. Moderate volume of ascites with peritoneal nodularity, consistent with carcinomatosis. Diagnostic paracentesis is recommended. 2. Wall thickening of the distal small bowel, consistent with enteritis versus interstitial edema. 3. Cirrhosis of the liver. Chest X-Ray 08/07/24 13:11 IMPRESSION: 1. No acute cardiopulmonary disease. Paracentesis Ultrasound 08/07/24 16:49 IMPRESSION: 1. Successful ultrasound-guided paracentesis yielding 800 mL of dark reddish fluid. Upper Quadrant Ultrasound 08/08/24 20:04 IMPRESSION: Cirrhosis. Abdomen X-Ray 08/09/24 08:36 IMPRESSION: 1. Dilated small bowel, likely adynamic ileus. Labs Labs: Laboratory Results - last 24 hr 08/08/24 08/08/24 08/08/24 11:44 13:25 16:51 WBC RBC Hgb Hct MCV MCH MCHC RDW Plt Count MPV Immature Gran % (Auto) Neut % (Auto) Lymph % (Auto) Finney % (Auto) Eos % (Auto) Baso % (Auto) Lymph # (Auto) [place]ney # (Auto) Eos # (Auto) Baso # (Auto) Abs Immat Gran (auto) Absolute Neuts (auto) Absolute Nucleated RBC Nucleated RBC % Sodium Potassium Chloride Carbon Dioxide Anion Gap BUN Creatinine Estim Creat Clear Calc Estimated GFR Glucose POC Capillary Glucose 313 H 229 H Calcium Total Bilirubin AST ALT Alkaline Phosphatase Ammonia 19 Total Protein Albumin Carcinoembryonic Ag TSH (Reflex) Free T4 Total T3 08/08/24 08/09/24 08/09/24 20:36 05:43 05:44 WBC 23.4 H RBC 3.78 L Hgb 12.2 L Hct 36.9 L MCV 97.6 MCH 32.3 MCHC 33.1 RDW 13.2 Plt Count 319 MPV 10.0 Immature Gran % (Auto) 0.9 H Neut % (Auto) 85.5 H Lymph % (Auto) 5.9 L Finney % (Auto) 7.4 Eos % (Auto) 0.0 Baso % (Auto) 0.3 Lymph # (Auto) 1.37 Finney # (Auto) 1.7 H Eos # (Auto) 0.0 Baso # (Auto) 0.1 Abs Immat Gran (auto) 0.21 H Absolute Neuts (auto) 20.0 H Absolute Nucleated RBC 0.000 Nucleated RBC % 0.0 Sodium 132 L Potassium 3.9 Chloride 103 Carbon Dioxide 19 L Anion Gap 10 BUN 20 Creatinine 1.00 Estim Creat Clear Calc 73 Estimated GFR > 60 Glucose 249 H POC Capillary Glucose 237 H Calcium 6.7 L Total Bilirubin 0.8 AST 29 ALT 21 Alkaline Phosphatase 69 Ammonia Total Protein 7.0 Albumin 3.2 L Carcinoembryonic Ag 61.2 H TSH (Reflex) 5.450 H Free T4 1.25 Total T3 0.97 08/09/24 07:33 WBC RBC Hgb Hct MCV MCH MCHC RDW Plt Count MPV Immature Gran % (Auto) Neut % (Auto) Lymph % (Auto) Finney % (Auto) Eos % (Auto) Baso % (Auto) Lymph # (Auto) Finney # (Auto) Eos # (Auto) Baso # (Auto) Abs Immat Gran (auto) Absolute Neuts (auto) Absolute Nucleated RBC Nucleated RBC % Sodium Potassium Chloride Carbon Dioxide Anion Gap BUN Creatinine Estim Creat Clear Calc Estimated GFR Glucose POC Capillary Glucose 267 H Calcium Total Bilirubin AST ALT Alkaline Phosphatase Ammonia Total Protein Albumin Carcinoembryonic Ag TSH (Reflex) Free T4 Total T3
[2024-08-09] MEDS: ONDANSETRON INJ 4 MG/2 ML VIAL IV PUSH ×2 (11:50→20:29)
[2024-08-09] MEDS: PIPERACILLN/TAZ 3.375GM/NS50ML 3.375 GM/50 ML BAG IVPB ×2 (11:51→17:40)
[2024-08-09 11:53] LABS: Glucose Point of Care 299 mg/dl (65-105)
[2024-08-09] MEDS: BISACODYL 10 MG SUPPOSITORY RECTAL (11:55)
--- NOTE | 2024-08-09 14:22 | P.CONGS_ITS ---
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 No obvious primary lesion on imaging. He underwent paracentesis on Wednesday and cytology is still pending. We would recommend to await results of the cytology, which may also give indication of the primary malignancy. He would then need an Oncology consultation. If cytology does not indicate the primary origin, then he would need further workup possibly with PET/CT scan or endoscopic evaluation. Diagnostic laparoscopy is not indicated at this time. This is typically reserved for surgical decision-making once there is a known primary malignancy and to help identify if the primary tumor is resectable. That being said, he would also be high risk for healing complications given his likely malignant ascites. No plans for surgery at this time. We will continue to follow along. (2) Cirrhosis: Code(s): K74.60 - Unspecified cirrhosis of liver Status: Acute Assessment and Plan: Imaging shows evidence of liver cirrhosis. GI following. See plan above. (3) Diabetes mellitus: Code(s): E11.9 - Type 2 diabetes mellitus without complications Status: Acute Assessment and Plan: Hgb A1C 9.0 on admission. He was not taking any medication prior to admission. Unclear if this is a new diagnosis. (4) Alcohol abuse: Code(s): F10.10 - Alcohol abuse, uncomplicated Status: Acute Assessment and Plan: Recommended cessation. He states he wants to stop drinking and is adamant about that. (5) Ileus: Code(s): K56.7 - Ileus, unspecified Status: Acute Assessment and Plan: Patient still has an ileus with no signs of bowel function. He is still feeling nauseated but no vomiting. Okay to have clear liquids. Will give a dulcolax suppository now. May need to consider NG tube placement if he starts vomiting. (6) Enteritis: Code(s): K52.9 - Noninfective gastroenteritis and colitis, unspecified Status: Acute Assessment and Plan: CT abdomen pelvis on admission showed wall thickening of the distal ileum, c/w possible enteritis versus interstitial edema. Antibiotics changed to IV Zosyn today as his WBC count went up to 23,000. Plan I have discussed the patient's case and plan of care with Dr. Figueroa. History of Present Illness Consult details Consult date: 08/09/24 Reason for consult: other (Peritoneal carcinomatosis) Requesting physician: Luz Gannon MD Narrative: This is a 68-year-old man with PMH of alcohol abuse, hypertension, hypothyr oidism, and type 2 diabetes mellitus, who we have been asked to see in surgical consultation for peritoneal carcinomatosis. He presented to the ED 2 days ago for abdominal pain. He apparently woke up in the morning and had taken a shot of Tequila. He was then sitting in a chair watching TV and had a sudden onset generalized abdominal pain. The pain was aggravated by movement and palpation. Please thought he was constipated, but he had no relief of pain after having a bowel movement. He developed diarrhea throughout the day, as well as nausea. He reports dry heaving, but no vomiting. His abdominal pain continued to get worse and he presented to the ED for evaluation. Labs [place] [address], glucose 328, anion gap 15, lactic acid 3.3, total bilirubin 1.7. Troponin negative. Hemoglobin A1c 9.0. Chest x-ray negative. CT scan of the abdomen and pelvis with IV contrast showed moderate volume of ascites with peritoneal nodularity consistent with carcinomatosis, wall thickening of the distal small bowel consistent with enteritis versus interstitial edema, and cirrhosis of the liver. He had an ultrasound-guided paracentesis on 08/07/2024 and GI was consulted. Ascitic fluid is not compatible with what is expected for cirrhosis, and there is a high suspicion for malignancy. GI recommended surgical consultation. He is now seen on the medical floor. He continues to have nausea and dry heaving. He has had serial abdominal x-rays that show evidence of an ileus. He reports only drinking very little at this time. He denies any flatus since admission. His last bowel movement was the diarrhea he had on the day of admission. He denies any previous known malignancy. He reports having a colonoscopy x2 in the past. His most recent colonoscopy was over 5 years ago and reportedly negative. CEA level drawn on this admission and elevated at 61.2. Review of Systems Review of Systems: All systems reviewed & are unremarkable except as noted in HPI and below PMFSH Past Medical History Medical History BPH (benign prostatic hyperplasia) Hypertension Hypothyroidism Surgical History Surgical History History of laparoscopic cholecystectomy Family History Family History Other Diabetes mellitus Social History Social History Smoking packs per day: 1 Smoking cigarettes per day: 20.0 Years smoked: 23 Smoking pack-years: 23.00 Smoking status: Former smoker Tobacco type: cigarettes Alcohol intake: current Drinks per week: 35 Substance use: former Substance use type: amphetamines Do You Feel Safe in your Home?: Yes Lack of Transportation: No Lack of Food: Never True Current Housing: I Have Housing Concerned About Future Housing: No Difficulty Paying Gas/Electric Bills: No Difficulty Paying for Meds: No Currently Unemployed: No Education: Don't Know Difficulty w/ Childcare or Family Care: No Spiritual care concerns: No Meds Home Medications and Allergies Home Medications Medication Instructions Recorded Confirmed Type amlodipine 10 mg tablet 10 mg PO DAILY 08/07/24 08/07/24 History diclofenac sodium 75 mg 75 mg PO DAILY 08/07/24 08/07/24 History tablet,delayed release finasteride 5 mg tablet 5 mg PO DAILY 08/07/24 08/07/24 History levothyroxine 25 mcg tablet 25 mcg PO DAILY 08/07/24 08/07/24 History losartan 100 mg tablet 100 mg PO HS 08/07/24 08/07/24 History tadalafil 5 mg tablet 5 mg PO DAILY 08/07/24 08/07/24 History Allergies Allergy/AdvReac Type Severity Reaction Status Date / Time No Known Allergies Allergy Verified 08/07/24 18:39 Vital Signs Vital Signs - 24 hr 08/08/24 16:00 08/08/24 16:00 08/08/24 20:34 Temperature 97.7 F Pulse Rate 106 H 68 Pulse Rate [Monitor] 110 H Respiratory Rate 16 Blood Pressure 128/68 Pulse Oximetry 93 Oxygen Delivery 08/08/24 20:40 08/08/24 20:50 08/08/24 20:01 Temperature 97.6 F Pulse Rate 102 H 107 H Pulse Rate [Monitor] Respiratory Rate 16 Blood Pressure 138/92 H Pulse Oximetry 96 Oxygen Delivery Room Air 08/09/24 00:04 08/09/24 00:00 08/09/24 00:00 Temperature 97.8 F Pulse Rate 98 100 Pulse Rate [Monitor] 98 Respiratory Rate 16 Blood Pressure 162/98 H Pulse Oximetry 95 Oxygen Delivery 08/09/24 04:00 08/09/24 04:00 08/09/24 06:58 Temperature 97.8 F Pulse Rate 95 100 Pulse Rate [Monitor] 95 Respiratory Rate 16 Blood Pressure 164/87 H Pulse Oximetry 98 Oxygen Delivery 08/09/24 07:56 08/09/24 09:01 08/09/24 09:10 Temperature 97.2 F L Pulse Rate 101 H Pulse Rate [Monitor] Respiratory Rate 20 Blood Pressure 154/83 H Pulse Oximetry 92 96 Oxygen Delivery Room Air Room Air 08/09/24 12:00 08/09/24 08:03 Temperature 97.5 F L Pulse Rate 98 105 H Pulse Rate [Monitor] Respiratory Rate 20 Blood Pressure 172/87 H Pulse Oximetry 95 Oxygen Delivery Exam Const: General: no acute distress Nutritional Appearance: obese Orientation/consciousness: patient oriented x3 HENMT: Head: normocephalic and atraumatic Ears: hearing grossly normal bilaterally Mouth: Yes moist mucous membranes Eyes: General: appearance normal, both eyes and all related structures Pupils: Equal, round and reactive pupils present Neck: Neck: normal visual inspection and full ROM Resp: Effort & Inspection: tachypneic Auscultation: diminished lung sounds Cardio: Rate: regular rate Rhythm: regular rhythm Peripheral pulses: Peripheral pulses 2+ throughout GI: Inspection: distended, no visible herniation and other (large protuberant distended abdomen) GI Palp: Yes Firmness to palpation present (GI), Yes Tenderness to palpation present (GI) (mild diffuse tenderness), No Guarding due to palpation present (GI), Yes No hepatosplenomegaly present, Yes Ascites present and No Rebound tenderness present Auscultation: Hypoactive bowel sounds present (few high-pitched tinkling bowel sounds) Skin: General skin exam: normal color Neuro: General: moves all extremities and no focal motor deficits Speech: normal speech Motor exam (neuro): 5/5 motor strength present throughout Extrem: General: normal to inspection and no edema Psych: Mental Status: mental status grossly normal Attitude: cooperative Insight: Good insight present (Psych) Judgement: Good judgement present (Psych) Results Labs 08/09/24 05:43 08/09/24 05:43 Labs: Abnormal lab results 08/08/24 08/08/24 08/09/24 Range/Units 16:51 20:36 05:43 WBC 23.4 H (4.5-10.0) K/mm3 RBC 3.78 L (4.6-6.20) M/mm3 Hgb 12.2 L (14.0-18.0) g/dL Hct 36.9 L (42.0-52.0) % Immature Gran % (Auto) 0.9 H (0-0.5) % Neut % (Auto) 85.5 H (45.5-73.1) % Lymph % (Auto) 5.9 L (18.3-44.2) % [place] # (Auto) 1.7 H (0.1-0.6) K/mm3 Abs Immat Gran (auto) 0.21 H (0.00-0.031) K/mm3 Absolute Neuts (auto) 20.0 H (1.3-6.7) K/mm3 Sodium 132 L (137-145) mmol/L Carbon Dioxide 19 L (22-30) mmol/L Glucose 249 H (65-110) mg/dL POC Capillary Glucose 229 H 237 H (65-105) mg/dl Calcium 6.7 L (8.4-10.2) mg/dL Albumin 3.2 L (3.5-5.1) g/dL Carcinoembryonic Ag 61.2 H (0.0-3.0) ng/mL TSH (Reflex) (0.465-4.68) uIU/mL 08/09/24 08/09/24 08/09/24 Range/Units 05:44 07:33 11:50 WBC (4.5-10.0) K/mm3 RBC (4.6-6.20) M/mm3 Hgb (14.0-18.0) g/dL Hct (42.0-52.0) % Immature Gran % (Auto) (0-0.5) % Neut % (Auto) (45.5-73.1) % Lymph % (Auto) (18.3-44.2) % [place] # (Auto) (0.1-0.6) K/mm3 Abs Immat Gran (auto) (0.00-0.031) K/mm3 Absolute Neuts (auto) (1.3-6.7) K/mm3 Sodium (137-145) mmol/L Carbon Dioxide (22-30) mmol/L Glucose (65-110) mg/dL POC Capillary Glucose 267 H 299 H (65-105) mg/dl Calcium (8.4-10.2) mg/dL Albumin (3.5-5.1) g/dL Carcinoembryonic Ag (0.0-3.0) ng/mL TSH (Reflex) 5.450 H (0.465-4.68) uIU/mL Diabetes panel 08/09/24 Range/Units 05:43 Sodium 132 L (137-145) mmol/L Potassium 3.9 (3.4-5.0) mmol/L Chloride 103 (98-107) mmol/L Carbon Dioxide 19 L (22-30) mmol/L BUN 20 (9-20) mg/dL Creatinine 1.00 (0.7-1.3) mg/dL Glucose 249 H (65-110) mg/dL Calcium 6.7 L (8.4-10.2) mg/dL AST 29 (17-59) U/L ALT 21 (6-50) U/L Alkaline Phosphatase 69 (38-126) U/L Total Protein 7.0 (6.3-8.2) g/dL Albumin 3.2 L (3.5-5.1) g/dL Calcium panel 08/09/24 Range/Units 05:43 Calcium 6.7 L (8.4-10.2) mg/dL Albumin 3.2 L (3.5-5.1) g/dL Pituitary panel 08/09/24 08/09/24 Range/Units 05:43 05:44 Sodium 132 L (137-145) mmol/L Potassium 3.9 (3.4-5.0) mmol/L Chloride 103 (98-107) mmol/L Carbon Dioxide 19 L (22-30) mmol/L BUN 20 (9-20) mg/dL Creatinine 1.00 (0.7-1.3) mg/dL Glucose 249 H (65-110) mg/dL Calcium 6.7 L (8.4-10.2) mg/dL Total T3 0.97 (0.97-1.69) NG/ML Adrenal panel 08/09/24 Range/Units 05:43 Sodium 132 L (137-145) mmol/L Potassium 3.9 (3.4-5.0) mmol/L Chloride 103 (98-107) mmol/L Carbon Dioxide 19 L (22-30) mmol/L BUN 20 (9-20) mg/dL Creatinine 1.00 (0.7-1.3) mg/dL Glucose 249 H (65-110) mg/dL Calcium 6.7 L (8.4-10.2) mg/dL Total Bilirubin 0.8 (0.2-1.3) mg/dL AST 29 (17-59) U/L ALT 21 (6-50) U/L Alkaline Phosphatase 69 (38-126) U/L Total Protein 7.0 (6.3-8.2) g/dL Albumin 3.2 L (3.5-5.1) g/dL All other labs normal. Imaging Additional studies: ITS Impressions Abdomen/Pelvis CT 08/07/24 13:05 IMPRESSION: 1. Moderate volume of ascites with peritoneal nodularity, consistent with carcinomatosis. Diagnostic paracentesis is recommended. 2. Wall thickening of the distal small bowel, consistent with enteritis versus interstitial edema. 3. Cirrhosis of the liver. Chest X-Ray 08/07/24 13:11 IMPRESSION: 1. No acute cardiopulmonary disease. Paracentesis Ultrasound 08/07/24 16:49 IMPRESSION: 1. Successful ultrasound-guided paracentesis yielding 800 mL of dark reddish fluid. Abdomen X-Ray 08/08/24 13:44 IMPRESSION: 1. Mildly dilated small bowel, likely adynamic ileus. Upper Quadrant Ultrasound 08/08/24 20:04 IMPRESSION: Cirrhosis. Abdomen X-Ray 08/09/24 08:36 IMPRESSION: 1. Dilated small bowel, likely adynamic ileus.
[2024-08-09 16:50] LABS: Glucose Point of Care 304 mg/dl (65-105)
--- NOTE | 2024-08-09 16:54 | P.PNGI_ITS ---
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 Status: Acute Assessment and Plan: The patient's condition has worsened over 24 hours. His white count is above 23, with neutrophilia and lymphopenia. CEA frankly elevated, raising the suspicion for intra-abdominal carcinomatosis even further. His abdominal examination is also markedly worse, extremely distended and tense. The possibility of mechanical obstruction secondary to carcinomatosis should be considered. Surgical evaluation appreciated, not a surgical candidate at this moment. Nevertheless, I ordered a STAT noncontrast abdominal CT, to better delineate the small and large bowel anatomy and help making decisions. (2) Liver cirrhosis, alcoholic: Code(s): K70.30 - Alcoholic cirrhosis of liver without ascites Status: Acute (3) Ascites: Code(s): R18.8 - Other ascites Status: Acute Subjective Date/time seen: 08/09/24 16:54 Interval history: Patient has worsening abdominal pain and distension. He stated he passed a very small amount of stools and no gas. Exam GI: Inspection: distended GI Palp: Yes Firmness to palpation present (GI) and Yes Tenderness to palpation present (GI) Auscultation: normal bowel sounds Objective Data Vital Signs Vital Signs: Vital Signs - 24 hr 08/08/24 20:34 08/08/24 20:40 08/08/24 20:50 Temperature 97.6 F Pulse Rate 102 H Pulse Rate [Monitor] 110 H Respiratory Rate 16 Blood Pressure 138/92 H Pulse Oximetry 96 Oxygen Delivery Room Air 08/08/24 20:01 08/09/24 00:04 08/09/24 00:00 Temperature Pulse Rate 107 H 98 Pulse Rate [Monitor] 98 Respiratory Rate Blood Pressure Pulse Oximetry Oxygen Delivery 08/09/24 00:00 08/09/24 04:00 08/09/24 04:00 Temperature 97.8 F Pulse Rate 100 95 Pulse Rate [Monitor] 95 Respiratory Rate 16 Blood Pressure 162/98 H Pulse Oximetry 95 Oxygen Delivery 08/09/24 06:58 08/09/24 07:56 08/09/24 09:01 Temperature 97.8 F 97.2 F L Pulse Rate 100 101 H Pulse Rate [Monitor] Respiratory Rate 16 20 Blood Pressure 164/87 H 154/83 H Pulse Oximetry 98 92 96 Oxygen Delivery Room Air 08/09/24 09:10 08/09/24 12:00 08/09/24 08:03 Temperature 97.5 F L Pulse Rate 98 105 H Pulse Rate [Monitor] Respiratory Rate 20 Blood Pressure 172/87 H Pulse Oximetry 95 Oxygen Delivery Room Air 08/09/24 15:57 Temperature 97.3 F L Pulse Rate 110 H Pulse Rate [Monitor] Respiratory Rate 20 Blood Pressure 161/77 H Pulse Oximetry 95 Oxygen Delivery Intake/Output Intake/Output: Intake & Output 08/06/24 08/07/24 08/08/24 08/09/24 23:59 23:59 23:59 23:59 Intake Total 6199.3 3168.0 400 Output Total 800 Balance 5399.3 3168.0 400 Meds/Results Medications: Active Medications Generic Name Dose Route Start Last Admin Trade Name Freq PRN Reason Stop Dose Admin Acetaminophen 650 mg 08/07/24 17:40 Acetaminophen 325 Mg Tablet PO Q4H PRN Mild Pain (1-3) or Fever Hydrocodone Bitart/Acetaminophen 1 tab 08/07/24 15:49 08/09/24 15:28 Hydrocodone/Acetaminophen (*Crx) 5-325 Mg Tablet PO 1 tab Q4H PRN Administration Pain Rated 4-6 Chlordiazepoxide HCl 25 mg 08/08/24 12:53 Chlordiazepoxide (*Crx) 25 Mg Capsule PO Q6H PRN Withdrawal CIWA 8-15 Dextrose 12.5 gm 08/07/24 22:17 Dextrose 50% 25 Gm/50 Ml Syringe IV PUSH PRN PRN Hypoglycemia Protocol Docusate Sodium 100 mg 08/08/24 09:00 08/09/24 09:00 Docusate Sodium 100 Mg Capsule PO 100 mg BID MEGGAN Administration Finasteride 5 mg 08/08/24 09:00 08/09/24 09:00 Finasteride 5 Mg Tablet PO 5 mg DAILY MEGGAN Administration Folic Acid 1 mg 08/08/24 09:00 08/09/24 09:00 Folic Acid 1 Mg Tablet PO 1 mg DAILY MEGGAN Administration Glucagon 1 mg 08/07/24 22:17 Glucagon For Inj 1 Mg Vial IM PRN PRN Hypoglycemia Protocol Glucose 15 gm 08/07/24 22:17 Glucose Oral Gel 15 Gm Of Glucse In 37.5 Gm Tube PO PRN PRN Hypoglycemia Protocol Dextrose 1,000 mls @ 100 mls/hr 08/07/24 22:17 Dextrose 5% 1,000 Ml IVPB PRN PRN Hypoglycemia Protocol Piperacillin/Tazobactam/Dextrose 3.375 gm in 50 mls @ 100 mls/hr 08/09/24 11:00 08/09/24 11:51 Zosyn 3.375 Gm/Ns 50 Ml IVPB 100 mls/hr Q6HR MEGGAN Administration Insulin Aspart 1 - 3 units 08/07/24 21:00 08/08/24 20:47 Insulin Aspart (*Bkc) 100 Units/Ml SUB-Q 1 units HS MEGGAN Administration Protocol Insulin Aspart 3 - 6 units 08/08/24 08:00 08/09/24 11:56 Insulin Aspart (*Bkc) 100 Units/Ml SUB-Q 4 units TIDWM MEGGAN Administration Protocol Insulin Glargine 10 units 08/08/24 21:00 08/08/24 20:48 Insulin Glargine (*Bkc) 100 Units/Ml SUB-Q 10 units HS MEGGAN Administration Levothyroxine Sodium 25 mcg 08/08/24 06:30 08/09/24 07:59 Levothyroxine Sodium 25 Mcg Tablet PO 25 mcg DAILY@0630 MEGGAN Administration Lorazepam 2 mg 08/08/24 07:42 08/08/24 20:35 Lorazepam Inj (*Crx) 2 Mg/Ml Vial IV PUSH 2 mg Q4H PRN Administration CIWA >15 Ondansetron HCl 4 mg 08/07/24 15:49 08/09/24 11:50 Ondansetron Inj 4 Mg/2 Ml Vial IV PUSH 4 mg Q4H PRN Administration Nausea Thiamine HCl 100 mg 08/08/24 09:00 08/09/24 09:00 Thiamine Hcl 100 Mg Tablet PO 100 mg QAM MEGGAN Administration Radiology Results: ITS Impressions Abdomen/Pelvis CT 08/07/24 13:05 IMPRESSION: 1. Moderate volume of ascites with peritoneal nodularity, consistent with carcinomatosis. Diagnostic paracentesis is recommended. 2. Wall thickening of the distal small bowel, consistent with enteritis versus interstitial edema. 3. Cirrhosis of the liver. Chest X-Ray 08/07/24 13:11 IMPRESSION: 1. No acute cardiopulmonary disease. Paracentesis Ultrasound 08/07/24 16:49 IMPRESSION: 1. Successful ultrasound-guided paracentesis yielding 800 mL of dark reddish fluid. Upper Quadrant Ultrasound 08/08/24 20:04 IMPRESSION: Cirrhosis. Abdomen X-Ray 08/09/24 08:36 IMPRESSION: 1. Dilated small bowel, likely adynamic ileus. Labs Labs: Laboratory Results - last 24 hr 08/08/24 08/08/24 08/09/24 16:51 20:36 05:43 WBC 23.4 H RBC 3.78 L Hgb 12.2 L Hct 36.9 L MCV 97.6 MCH 32.3 MCHC 33.1 RDW 13.2 Plt Count 319 MPV 10.0 Immature Gran % (Auto) 0.9 H Neut % (Auto) 85.5 H Lymph % (Auto) 5.9 L Craig % (Auto) 7.4 Eos % (Auto) 0.0 Baso % (Auto) 0.3 Lymph # (Auto) 1.37 Craig # (Auto) 1.7 H Eos # (Auto) 0.0 Baso # (Auto) 0.1 Abs Immat Gran (auto) 0.21 H Absolute Neuts (auto) 20.0 H Absolute Nucleated RBC 0.000 Nucleated RBC % 0.0 Sodium 132 L Potassium 3.9 Chloride 103 Carbon Dioxide 19 L Anion Gap 10 BUN 20 Creatinine 1.00 Estim Creat Clear Calc 73 Estimated GFR > 60 Glucose 249 H POC Capillary Glucose 229 H 237 H Calcium 6.7 L Total Bilirubin 0.8 AST 29 ALT 21 Alkaline Phosphatase 69 Total Protein 7.0 Albumin 3.2 L Carcinoembryonic Ag 61.2 H TSH (Reflex) Free T4 Total T3 08/09/24 08/09/24 08/09/24 05:44 07:33 11:50 WBC RBC Hgb Hct MCV MCH MCHC RDW Plt Count MPV Immature Gran % (Auto) Neut % (Auto) Lymph % (Auto) Craig % (Auto) Eos % (Auto) Baso % (Auto) Lymph # (Auto) Craig # (Auto) Eos # (Auto) Baso # (Auto) Abs Immat Gran (auto) Absolute Neuts (auto) Absolute Nucleated RBC Nucleated RBC % Sodium Potassium Chloride Carbon Dioxide Anion Gap BUN Creatinine Estim Creat Clear Calc Estimated GFR Glucose POC Capillary Glucose 267 H 299 H Calcium Total Bilirubin AST ALT Alkaline Phosphatase Total Protein Albumin Carcinoembryonic Ag TSH (Reflex) 5.450 H Free T4 1.25 Total T3 0.97 08/09/24 16:47 WBC RBC Hgb Hct MCV MCH MCHC RDW Plt Count MPV Immature Gran % (Auto) Neut % (Auto) Lymph % (Auto) Craig % (Auto) Eos % (Auto) Baso % (Auto) Lymph # (Auto) Craig # (Auto) Eos # (Auto) Baso # (Auto) Abs Immat Gran (auto) Absolute Neuts (auto) Absolute Nucleated RBC Nucleated RBC % Sodium Potassium Chloride Carbon Dioxide Anion Gap BUN Creatinine Estim Creat Clear Calc Estimated GFR Glucose POC Capillary Glucose 304 H Calcium Total Bilirubin AST ALT Alkaline Phosphatase Total Protein Albumin Carcinoembryonic Ag TSH (Reflex) Free T4 Total T3
[2024-08-09 20:24] LABS: Glucose Point of Care 288 mg/dl (65-105)
[2024-08-09] MEDS: INSULIN GLARGINE (*BKC) 100 UNITS/ML 10 UNITS SUB-Q (20:26)
[2024-08-10] VITALS (9 sets, daily range): BP systolic 128–166; BP diastolic 80–91; PULSE 94–101; RESP 14–20; TEMP 36.2–36.7; O2SAT 94–98
[2024-08-10] MEDS: PIPERACILLN/TAZ 3.375GM/NS50ML 3.375 GM/50 ML BAG IVPB ×5 (00:01→23:29)
[2024-08-10] MEDS: HYDROcodone/acetaminophen (*CRX) 5-325 MG TABLET 1 TAB PO ×4 (00:05→12:46)
[2024-08-10] MEDS: LEVOTHYROXINE SODIUM 25 MCG TABLET PO (06:54)
[2024-08-10 08:28] LABS: Glucose Point of Care 259 mg/dl (65-105)
[2024-08-10] MEDS: FINASTERIDE 5 MG TABLET PO (08:41)
[2024-08-10] MEDS: FOLIC ACID 1 MG TABLET PO (08:41)
[2024-08-10] MEDS: DOCUSATE SODIUM 100 MG CAPSULE PO (08:41)
[2024-08-10] MEDS: THIAMINE HCL 100 MG TABLET PO (08:41)
[2024-08-10] MEDS: INSULIN ASPART (*BKC) 100 UNITS/ML SUB-Q ×3 (08:43→23:33)
--- NOTE | 2024-08-10 08:52 | PM.IMPN ---
Progress Note: A&P Assessment and Plan (1) Ascites: Code(s): R18.8 - Other ascites Status: Acute (2) Abdominal pain: Code(s): R10.9 - Unspecified abdominal pain Status: Acute (3) Enteritis: Code(s): K52.9 - Noninfective gastroenteritis and colitis, unspecified Status: Acute (4) Diabetes mellitus: Code(s): E11.9 - Type 2 diabetes mellitus without complications Status: Acute (5) Alcohol abuse: Code(s): F10.10 - Alcohol abuse, uncomplicated Status: Acute (6) Hypertension: Code(s): I10 - Essential (primary) hypertension Status: Acute (7) Liver cirrhosis, alcoholic: Code(s): K70.30 - Alcoholic cirrhosis of liver without ascites Status: Acute (8) BPH (benign prostatic hyperplasia): Code(s): N40.0 - Benign prostatic hyperplasia without lower urinary tract symptoms Status: Acute (9) Hypothyroidism: Code(s): E03.9 - Hypothyroidism, unspecified Status: Acute Plan this is a 68-year-old male who presents with abdominal pain. Abdomen x-ray showing mildly dilated loops of small bowel. CT abdomen pelvis shows ascites with peritoneal noted laterally consistent with carcinomatosis, wall thickening of the distal Small bowel and liver cirrhosis. Paracentesis in the ER had bloody fluid and removal of 800 mL of dark reddish fluid.. peritoneal Cell count36 K WBC 2 K with 20 PMNs. Absolute PMNs 400. Two hundred fifty-six corrected for RBCs. Since more than 2:50 p.m. and cells treated as SBP with Rocephin. G stain showing WBCs but no organisms. Blood culture no growth. Right upper quadrant ultrasound with cirrhosis. 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 CEA elevated GI has been consulted. GI consulted with recommended diagnostic laparoscopy. General surgery was consulted. however deferred laparoscopic evaluation. Await GI workup may need colonoscopy evaluation however due to current ileus this is not feasible. Undergoing PET-CT is an option however this is not done as an inpatient here. Oncology also not available until 10th will get therapeutic paracentesis performed. NG tube placement for ileus. will also include Oncology and we consulted today. Will also try to transfer him to [place] continued evaluation and management AFP stay, CEA, CA [address] scan showing thickening of distal small bowel. IV Zosyn Diabetes mellitus A1c 9. On Lantus and NovoLog Alcohol abuse on CIWA protocol Librium and Ativan as needed Hypertension Liver cirrhosis due to alcohol BPH Hypothyroidism DVT prophylaxis SCDs Code status full code Subjective Date/time seen: 08/10/24 08:52 Interval history: patient repots abdominal distension, nausea, no vomiting. afebrile Review of Systems Review of Systems: All systems reviewed & are unremarkable except as noted in HPI and below Exam Narrative: GENERAL: Pleasant, in no acute distress. Well-nourished. - EYES: EOMI. Anicteric. - HENT: Moist mucous membranes. - LUNGS: Clear to auscultation bilaterally, no wheezing, rhonchi, or rales. - CARDIOVASCULAR: Regular rate and rhythm. No murmur. No JVD. - ABDOMEN: Soft, lower abdominal tender and severely distended. No palpable masses. - EXTREMITIES: No edema. Peripheral pulses 2+. Non-tender. - NEUROLOGIC: No focal neurological deficits. CN II-XII grossly intact. - PSYCHIATRIC: Awake, Alert and oriented x 3. Appropriate mood and affect. - SKIN: No rashes or lesions. Warm. Objective Data Vital Signs Vital Signs: Vital Signs - 24 hr 08/09/24 09:01 08/09/24 09:10 08/09/24 12:00 Temperature 97.5 F L Pulse Rate 98 Respiratory Rate 20 Blood Pressure 172/87 H Pulse Oximetry 96 95 Oxygen Delivery Room Air Room Air 08/09/24 15:57 08/09/24 20:12 08/09/24 20:30 Temperature 97.3 F L 98.1 F Pulse Rate 110 H 101 H 101 H Respiratory Rate 20 18 18 Blood Pressure 161/77 H 159/83 H Pulse Oximetry 95 95 95 Oxygen Delivery Room Air 08/09/24 20:30 08/09/24 23:36 08/10/24 00:00 Temperature 98.0 F 98.1 F Pulse Rate 100 100 Respiratory Rate 20 16 Blood Pressure 159/83 H 179/84 H Pulse Oximetry 97 98 Oxygen Delivery 08/10/24 04:48 08/10/24 06:00 Temperature 97.9 F 98.0 F Pulse Rate 99 100 Respiratory Rate 20 20 Blood Pressure 140/84 Pulse Oximetry 98 97 Oxygen Delivery Intake/Output Intake/Output: Intake & Output 08/07/24 08/08/24 08/09/24 08/10/24 23:59 23:59 23:59 23:59 Intake Total 6199.3 3168.0 500 250 Output Total 800 Balance 5399.3 3168.0 500 250 Meds/Results Medications: Active Medications Generic Name Dose Route Start Last Admin Trade Name Freq PRN Reason Stop Dose Admin Acetaminophen 650 mg 08/07/24 17:40 Acetaminophen 325 Mg Tablet PO Q4H PRN Mild Pain (1-3) or Fever Hydrocodone Bitart/Acetaminophen 1 tab 08/07/24 15:49 08/10/24 08:42 Hydrocodone/Acetaminophen (*Crx) 5-325 Mg Tablet PO 1 tab Q4H PRN Administration Pain Rated 4-6 Chlordiazepoxide HCl 25 mg 08/08/24 12:53 Chlordiazepoxide (*Crx) 25 Mg Capsule PO Q6H PRN Withdrawal CIWA 8-15 Dextrose 12.5 gm 08/07/24 22:17 Dextrose 50% 25 Gm/50 Ml Syringe IV PUSH PRN PRN Hypoglycemia Protocol Docusate Sodium 100 mg 08/08/24 09:00 08/10/24 08:41 Docusate Sodium 100 Mg Capsule PO 100 mg BID MEGGAN Administration Finasteride 5 mg 08/08/24 09:00 08/10/24 08:41 Finasteride 5 Mg Tablet PO 5 mg DAILY MEGGAN Administration Folic Acid 1 mg 08/08/24 09:00 08/10/24 08:41 Folic Acid 1 Mg Tablet PO 1 mg DAILY MEGGAN Administration Glucagon 1 mg 08/07/24 22:17 Glucagon For Inj 1 Mg Vial IM PRN PRN Hypoglycemia Protocol Glucose 15 gm 08/07/24 22:17 Glucose Oral Gel 15 Gm Of Glucse In 37.5 Gm Tube PO PRN PRN Hypoglycemia Protocol Dextrose 1,000 mls @ 100 mls/hr 08/07/24 22:17 Dextrose 5% 1,000 Ml IVPB PRN PRN Hypoglycemia Protocol Piperacillin/Tazobactam/Dextrose 3.375 gm in 50 mls @ 100 mls/hr 08/09/24 11:00 08/10/24 07:24 Zosyn 3.375 Gm/Ns 50 Ml IVPB Infused Q6HR MEGGAN Infusion Insulin Aspart 1 - 3 units 08/07/24 21:00 08/09/24 20:25 Insulin Aspart (*Bkc) 100 Units/Ml SUB-Q 2 units HS MEGGAN Administration Protocol Insulin Aspart 3 - 6 units 08/08/24 08:00 08/10/24 08:43 Insulin Aspart (*Bkc) 100 Units/Ml SUB-Q 4 units TIDWM MEGGAN Administration Protocol Insulin Glargine 10 units 08/08/24 21:00 08/09/24 20:26 Insulin Glargine (*Bkc) 100 Units/Ml SUB-Q 10 units HS MEGGAN Administration Levothyroxine Sodium 25 mcg 08/08/24 06:30 08/10/24 06:54 Levothyroxine Sodium 25 Mcg Tablet PO 25 mcg DAILY@0630 [facility] Administration Lorazepam 2 mg 08/08/24 07:42 08/08/24 20:35 Lorazepam Inj (*Crx) 2 Mg/Ml Vial IV PUSH 2 mg Q4H PRN Administration CIWA >15 Ondansetron HCl 4 mg 08/07/24 15:49 08/09/24 20:29 Ondansetron Inj 4 Mg/2 Ml Vial IV PUSH 4 mg Q4H PRN Administration Nausea Thiamine HCl 100 mg 08/08/24 09:00 08/10/24 08:41 Thiamine Hcl 100 Mg Tablet PO 100 mg QAM [facility] Administration Radiology Results: ITS Impressions Chest X-Ray 08/07/24 13:11 IMPRESSION: 1. No acute cardiopulmonary disease. Paracentesis Ultrasound 08/07/24 16:49 IMPRESSION: 1. Successful ultrasound-guided paracentesis yielding 800 mL of dark reddish fluid. Upper Quadrant Ultrasound 08/08/24 20:04 IMPRESSION: Cirrhosis. Abdomen X-Ray 08/09/24 08:36 IMPRESSION: 1. Dilated small bowel, likely adynamic ileus. Abdomen/Pelvis CT 08/09/24 17:24 IMPRESSION: Cirrhosis. Dilated proximal and mid small bowel without discrete transition point, likely representing ileus. Early obstruction not excluded. No evidence of pneumoperitoneum. Likely persistent distal small bowel wall thickening as can be seen with enteritis. Peritoneal carcinomatosis with moderate ascites. Labs Labs: Laboratory Results - last 24 hr 08/09/24 08/09/24 08/09/24 05:44 11:50 16:47 POC Capillary Glucose 299 H 304 H Total T3 0.97 08/09/24 08/10/24 20:03 08:16 POC Capillary Glucose 288 H 259 H Total T3
[2024-08-10 09:24] LABS: Basophils Percent Auto 0.2 % (0.2-1.2); Hematocrit 37.1 % (42.0-52.0); Hemoglobin 12.7 g/dL (14.0-18.0); Immature Granulocyte Absolute 0.22 K/mm3 (0.00-0.031); Lymphocytes Absolute Auto 1.23 K/mm3 (0.9-3.2); Lymphocytes Percent Auto 5.7 % (18.3-44.2); Mean Corpuscular HGB Conc 34.2 g/dl (32-36); Mean Corpuscular Hemoglobin 33.2 pg (26-34); Mean Corpuscular Volume 96.9 fl (80-100); Mean Platelet Volume 9.5 fl (7.4-10.4); Monocytes Absolute Auto 1.8 K/mm3 (0.1-0.6); Monocytes Percent Auto 8.1 % (2.6-8.5); Neutrophils Absolute Auto 18.5 K/mm3 (1.3-6.7); Platelet Count Result 343 k/mm3 (150-375); Red Blood Count 3.83 M/mm3 (4.6-6.20); Red Cell Distribution Width 13.2 % (11.5-14.5); White Blood Count 21.7 K/mm3 (4.5-10.0)
[2024-08-10 09:37] LABS: Potassium 3.9 mmol/L (3.4-5.0)
[2024-08-10 10:15] LABS: Alanine Aminotransferase 22 U/L (6-50); Albumin Level 3.3 g/dL (3.5-5.1); Alkaline Phosphatase 76 U/L (38-126); Anion Gap 12 mmol/L (4-12); Aspartate Amino Transferase 31 U/L (17-59); Blood Urea Nitrogen 26 mg/dL (9-20); Calcium 7.1 mg/dL (8.4-10.2); Carbon Dioxide 18 mmol/L (22-30); Chloride 101 mmol/L (98-107); Estimated CRCL calculation 73 ml/min; Estimated Glomerular Filt Rate > 60; Glucose 253 mg/dL (65-110); Magnesium 1.4 mg/dL (1.6-2.3); Sodium 131 mmol/L (137-145)
--- NOTE | 2024-08-10 11:50 | WPDGIPROGNO ---
Progress Note: A&P Assessment and Plan (1) Ileus: Code(s): K56.7 - Ileus, unspecified Status: Acute Assessment and Plan: Suspected peritoneal carcinomatosis based on CT findings. Ideally colonoscopy would be performed, but patient's current ileus vs mechanical obstruction from peritoneal implants make colonoscopy impossible. PET CT scan should be done which may give a better idea of primary tumor and also guide prognostic decisions. (2) Diabetes mellitus: Code(s): E11.9 - Type 2 diabetes mellitus without complications Status: Acute (3) Cirrhosis: Code(s): K74.60 - Unspecified cirrhosis of liver Status: Acute (4) Abdominal carcinomatosis: Code(s): C76.2 - Malignant neoplasm of abdomen Status: Acute Subjective Date/time seen: 08/10/24 11:50 Interval history: Pt continues with distension. CT from yesterday showed adynamic ileus, can't rule out mechanical component. Objective Data Vital Signs Vital Signs: Vital Signs - 24 hr 08/09/24 12:00 08/09/24 15:57 08/09/24 20:12 Temperature 97.5 F L 97.3 F L 98.1 F Pulse Rate 98 110 H 101 H Respiratory Rate 20 20 18 Blood Pressure 172/87 H 161/77 H 159/83 H Pulse Oximetry 95 95 95 Oxygen Delivery 08/09/24 20:30 08/09/24 20:30 08/09/24 23:36 Temperature 98.0 F Pulse Rate 101 H 100 Respiratory Rate 18 20 Blood Pressure 159/83 H 179/84 H Pulse Oximetry 95 97 Oxygen Delivery Room Air 08/10/24 00:00 08/10/24 04:48 08/10/24 06:00 Temperature 98.1 F 97.9 F 98.0 F Pulse Rate 100 99 100 Respiratory Rate 16 20 20 Blood Pressure 140/84 Pulse Oximetry 98 98 97 Oxygen Delivery 08/10/24 08:00 Temperature 98.1 F Pulse Rate 101 H Respiratory Rate 16 Blood Pressure 132/91 H Pulse Oximetry 95 Oxygen Delivery Intake/Output Intake/Output: Intake & Output 08/07/24 08/08/24 08/09/24 08/10/24 23:59 23:59 23:59 23:59 Intake Total 6199.3 3168.0 500 420 Output Total 800 Balance 5399.3 3168.0 500 420 Meds/Results Medications: Active Medications Generic Name Dose Route Start Last Admin Trade Name Freq PRN Reason Stop Dose Admin Acetaminophen 650 mg 08/07/24 17:40 Acetaminophen 325 Mg Tablet PO Q4H PRN Mild Pain (1-3) or Fever Hydrocodone Bitart/Acetaminophen 1 tab 08/07/24 15:49 08/10/24 08:42 Hydrocodone/Acetaminophen (*Crx) 5-325 Mg Tablet PO 1 tab Q4H PRN Administration Pain Rated 4-6 Chlordiazepoxide HCl 25 mg 08/08/24 12:53 Chlordiazepoxide (*Crx) 25 Mg Capsule PO Q6H PRN Withdrawal CIWA 8-15 Dextrose 12.5 gm 08/07/24 22:17 Dextrose 50% 25 Gm/50 Ml Syringe IV PUSH PRN PRN Hypoglycemia Protocol Docusate Sodium 100 mg 08/08/24 09:00 08/10/24 08:41 Docusate Sodium 100 Mg Capsule PO 100 mg BID MEGGAN Administration Finasteride 5 mg 08/08/24 09:00 08/10/24 08:41 Finasteride 5 Mg Tablet PO 5 mg DAILY MEGGAN Administration Folic Acid 1 mg 08/08/24 09:00 08/10/24 08:41 Folic Acid 1 Mg Tablet PO 1 mg DAILY MEGGAN Administration Glucagon 1 mg 08/07/24 22:17 Glucagon For Inj 1 Mg Vial IM PRN PRN Hypoglycemia Protocol Glucose 15 gm 08/07/24 22:17 Glucose Oral Gel 15 Gm Of Glucse In 37.5 Gm Tube PO PRN PRN Hypoglycemia Protocol Dextrose 1,000 mls @ 100 mls/hr 08/07/24 22:17 Dextrose 5% 1,000 Ml IVPB PRN PRN Hypoglycemia Protocol Piperacillin/Tazobactam/Dextrose 3.375 gm in 50 mls @ 100 mls/hr 08/09/24 11:00 08/10/24 11:31 Zosyn 3.375 Gm/Ns 50 Ml IVPB Infused Q6HR MGEGAN Infusion Insulin Aspart 1 - 3 units 08/07/24 21:00 08/09/24 20:25 Insulin Aspart (*Bkc) 100 Units/Ml SUB-Q 2 units HS MEGGAN Administration Protocol Insulin Aspart 3 - 6 units 08/08/24 08:00 08/10/24 08:43 Insulin Aspart (*Bkc) 100 Units/Ml SUB-Q 4 units TIDWM MEGGAN Administration Protocol Insulin Glargine 10 units 08/08/24 21:00 08/09/24 20:26 Insulin Glargine (*Bkc) 100 Units/Ml SUB-Q 10 units HS MEGGAN Administration Levothyroxine Sodium 25 mcg 08/08/24 06:30 08/10/24 06:54 Levothyroxine Sodium 25 Mcg Tablet PO 25 mcg DAILY@0630 MEGGAN Administration Lorazepam 2 mg 08/08/24 07:42 08/08/24 20:35 Lorazepam Inj (*Crx) 2 Mg/Ml Vial IV PUSH 2 mg Q4H PRN Administration CIWA >15 Ondansetron HCl 4 mg 08/07/24 15:49 08/09/24 20:29 Ondansetron Inj 4 Mg/2 Ml Vial IV PUSH 4 mg Q4H PRN Administration Nausea Thiamine HCl 100 mg 08/08/24 09:00 08/10/24 08:41 Thiamine Hcl 100 Mg Tablet PO 100 mg QAM MEGGAN Administration Radiology Results: ITS Impressions Chest X-Ray 08/07/24 13:11 IMPRESSION: 1. No acute cardiopulmonary disease. Paracentesis Ultrasound 08/07/24 16:49 IMPRESSION: 1. Successful ultrasound-guided paracentesis yielding 800 mL of dark reddish fluid. Upper Quadrant Ultrasound 08/08/24 20:04 IMPRESSION: Cirrhosis. Abdomen X-Ray 08/09/24 08:36 IMPRESSION: 1. Dilated small bowel, likely adynamic ileus. Abdomen/Pelvis CT 08/09/24 17:24 IMPRESSION: Cirrhosis. Dilated proximal and mid small bowel without discrete transition point, likely representing ileus. Early obstruction not excluded. No evidence of pneumoperitoneum. Likely persistent distal small bowel wall thickening as can be seen with enteritis. Peritoneal carcinomatosis with moderate ascites. Labs Labs: Laboratory Results - last 24 hr 08/09/24 08/09/24 08/09/24 11:50 16:47 20:03 WBC RBC Hgb Hct MCV MCH MCHC RDW Plt Count MPV Immature Gran % (Auto) Neut % (Auto) Lymph % (Auto) [place] % (Auto) Eos % (Auto) Baso % (Auto) Lymph # (Auto) [place] # (Auto) Eos # (Auto) Baso # (Auto) Abs Immat Gran (auto) Absolute Neuts (auto) Absolute Nucleated RBC Nucleated RBC % Sodium Potassium Chloride Carbon Dioxide Anion Gap BUN Creatinine Estim Creat Clear Calc Estimated GFR Glucose POC Capillary Glucose 299 H 304 H 288 H Calcium Magnesium Total Bilirubin AST ALT Alkaline Phosphatase Total Protein Albumin 08/10/24 08/10/24 08:16 09:17 WBC 21.7 H RBC 3.83 L Hgb 12.7 L Hct 37.1 L MCV 96.9 MCH 33.2 MCHC 34.2 RDW 13.2 Plt Count 343 MPV 9.5 Immature Gran % (Auto) 1.0 H Neut % (Auto) 85.0 H Lymph % (Auto) 5.7 L [place] % (Auto) 8.1 Eos % (Auto) 0.0 Baso % (Auto) 0.2 Lymph # (Auto) 1.23 [place] # (Auto) 1.8 H Eos # (Auto) 0.0 Baso # (Auto) 0.0 Abs Immat Gran (auto) 0.22 H Absolute Neuts (auto) 18.5 H Absolute Nucleated RBC 0.000 Nucleated RBC % 0.0 Sodium 131 L Potassium 3.9 Chloride 101 Carbon Dioxide 18 L Anion Gap 12 BUN 26 H Creatinine 1.00 Estim Creat Clear Calc 73 Estimated GFR > 60 Glucose 253 H POC Capillary Glucose 259 H Calcium 7.1 L Magnesium 1.4 L Total Bilirubin 1.0 AST 31 ALT 22 Alkaline Phosphatase 76 Total Protein 7.0 Albumin 3.3 L
[2024-08-10 12:00] LABS: Glucose Point of Care 234 mg/dl (65-105)
[2024-08-10] MEDS: MAGNESIUM SULF 2 GM/WATER 50ML 2 GM/50 ML BAG IVPB (15:33)
[2024-08-10 16:32] LABS: Glucose Point of Care 210 mg/dl (65-105)
[2024-08-10] MEDS: SODIUM CHLORIDE 0.9% IV 1,000 ML 40 ML IV CONT (16:42)
[2024-08-10] MEDS: ONDANSETRON INJ 4 MG/2 ML VIAL IV PUSH (17:53)
[2024-08-10] MEDS: MORPHINE SULFATE (*CRX) 2 MG/ML INJ IV PUSH ×2 (17:54→22:16)
--- NOTE | 2024-08-10 18:28 | P.PNGI_ITS ---
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 Status: Acute Assessment and Plan: The patient has evidence of cirrhosis, associated peritoneal carcinomatosis, elevated CEA and associated ileus. Ideally, a colonoscopy would be indicated, but at the present time is not possible due to severe ileus. I suggest performing a therapeutic paracentesis to remove as much fluid as possible, and continue nasogastric suction. Maybe next week, if ileus is resolved after documentation by hydro soluble contrast through the nasogastric tube, we can attempt a colonoscopy preparation to make a diagnosis. However, his prognosis is bad, due to the fact that there is peritoneal involvement of his primary neoplasm. (2) Cirrhosis: Code(s): K74.60 - Unspecified cirrhosis of liver Status: Acute (3) Ileus: Code(s): K56.7 - Ileus, unspecified Status: Acute (4) Diabetes mellitus: Code(s): E11.9 - Type 2 diabetes mellitus without complications Status: Acute Subjective Date/time seen: 08/10/24 18:28 Interval history: Patient feel much better after nasogastric tube was placed. Exam Narrative: Nasogastric tube is in place, draining approximately 200 cc of dark green gastric content. Objective Data Vital Signs Vital Signs: Vital Signs - 24 hr 08/09/24 20:12 08/09/24 20:30 08/09/24 20:30 Temperature 98.1 F Pulse Rate 101 H 101 H Pulse Rate [Monitor] Respiratory Rate 18 18 Blood Pressure 159/83 H 159/83 H Pulse Oximetry 95 95 Oxygen Delivery Room Air 08/09/24 23:36 08/10/24 00:00 08/10/24 04:48 Temperature 98.0 F 98.1 F 97.9 F Pulse Rate 100 100 99 Pulse Rate [Monitor] Respiratory Rate 20 16 20 Blood Pressure 179/84 H 140/84 Pulse Oximetry 97 98 98 Oxygen Delivery 08/10/24 06:00 08/10/24 08:00 08/10/24 12:00 Temperature 98.0 F 98.1 F 98 F Pulse Rate 100 101 H 100 Pulse Rate [Monitor] Respiratory Rate 20 16 17 Blood Pressure 132/91 H 128/88 Pulse Oximetry 97 95 96 Oxygen Delivery 08/10/24 12:00 08/10/24 14:00 08/10/24 16:00 Temperature 98 F Pulse Rate 99 Pulse Rate [Monitor] 95 95 Respiratory Rate 17 Blood Pressure 128/88 130/84 130/84 Pulse Oximetry 96 Oxygen Delivery Intake/Output Intake/Output: Intake & Output 08/07/24 08/08/24 08/09/24 08/10/24 23:59 23:59 23:59 23:59 Intake Total 6199.3 3168.0 500 521 Output Total 800 Balance 5399.3 3168.0 500 521 Meds/Results Medications: Active Medications Generic Name Dose Route Start Last Admin Trade Name Freq PRN Reason Stop Dose Admin Acetaminophen 650 mg 08/07/24 17:40 Acetaminophen 325 Mg Tablet PO Q4H PRN Mild Pain (1-3) or Fever Hydrocodone Bitart/Acetaminophen 1 tab 08/07/24 15:49 08/10/24 12:46 Hydrocodone/Acetaminophen (*Crx) 5-325 Mg Tablet PO 1 tab Q4H PRN Administration Pain Rated 4-6 Chlordiazepoxide HCl 25 mg 08/08/24 12:53 Chlordiazepoxide (*Crx) 25 Mg Capsule PO Q6H PRN Withdrawal CIWA 8-15 Dextrose 12.5 gm 08/07/24 22:17 Dextrose 50% 25 Gm/50 Ml Syringe IV PUSH PRN PRN Hypoglycemia Protocol Docusate Sodium 100 mg 08/08/24 09:00 08/10/24 15:08 Docusate Sodium 100 Mg Capsule PO Not Given BID MEGGAN Finasteride 5 mg 08/08/24 09:00 08/10/24 08:41 Finasteride 5 Mg Tablet PO 5 mg DAILY MEGGAN Administration Folic Acid 1 mg 08/08/24 09:00 08/10/24 08:41 Folic Acid 1 Mg Tablet PO 1 mg DAILY MEGGAN Administration Glucagon 1 mg 08/07/24 22:17 Glucagon For Inj 1 Mg Vial IM PRN PRN Hypoglycemia Protocol Glucose 15 gm 08/07/24 22:17 Glucose Oral Gel 15 Gm Of Glucse In 37.5 Gm Tube PO PRN PRN Hypoglycemia Protocol Dextrose 1,000 mls @ 100 mls/hr 08/07/24 22:17 Dextrose 5% 1,000 Ml IVPB PRN PRN Hypoglycemia Protocol Piperacillin/Tazobactam/Dextrose 3.375 gm in 50 mls @ 100 mls/hr 08/09/24 11:00 10/31/24 17:31 Zosyn 3.375 Gm/Ns 50 Ml IVPB Infused Q6HR MEGGAN Infusion Sodium Chloride 1,000 mls @ 40 mls/hr 08/10/24 16:30 08/10/24 16:42 Normal Saline Iv IV CONT 40 mls/hr .Q24H MEGGAN Administration Insulin Aspart 3 - 6 units 08/10/24 18:00 08/10/24 16:31 Insulin Aspart (*Bkc) 100 Units/Ml SUB-Q Not Given Q6H [facility] Protocol Insulin Glargine 10 units 08/08/24 21:00 08/09/24 20:26 Insulin Glargine (*Bkc) 100 Units/Ml SUB-Q 10 units HS MEGGAN Administration Levothyroxine Sodium 25 mcg 08/08/24 06:30 08/10/24 06:54 Levothyroxine Sodium 25 Mcg Tablet PO 25 mcg DAILY@0630 MEGGAN Administration Lorazepam 2 mg 08/08/24 07:42 08/08/24 20:35 Lorazepam Inj (*Crx) 2 Mg/Ml Vial IV PUSH 2 mg Q4H PRN Administration CIWA >15 Morphine Sulfate 2 mg 08/10/24 17:41 08/10/24 17:54 Morphine Sulfate (*Crx) 2 Mg/Ml Inj IV PUSH 2 mg Q4H PRN Administration Pain Rated 7-10 Ondansetron HCl 4 mg 08/07/24 15:49 08/10/24 17:53 Ondansetron Inj 4 Mg/2 Ml Vial IV PUSH 4 mg Q4H PRN Administration Nausea Thiamine HCl 100 mg 08/08/24 09:00 08/10/24 08:41 Thiamine Hcl 100 Mg Tablet PO 100 mg QAM MEGGAN Administration Radiology Results: ITS Impressions Chest X-Ray 08/07/24 13:11 IMPRESSION: 1. No acute cardiopulmonary disease. Paracentesis Ultrasound 08/07/24 16:49 IMPRESSION: 1. Successful ultrasound-guided paracentesis yielding 800 mL of dark reddish fluid. Upper Quadrant Ultrasound 08/08/24 20:04 IMPRESSION: Cirrhosis. Abdomen X-Ray 08/09/24 08:36 IMPRESSION: 1. Dilated small bowel, likely adynamic ileus. Abdomen/Pelvis CT 08/09/24 17:24 IMPRESSION: Cirrhosis. Dilated proximal and mid small bowel without discrete transition point, likely representing ileus. Early obstruction not excluded. No evidence of pneumoperitoneum. Likely persistent distal small bowel wall thickening as can be seen with enteritis. Peritoneal carcinomatosis with moderate ascites. NG Tube Placement 08/10/24 15:41 IMPRESSION: 1. Successful fluoroscopic guided placement of a nasogastric tube which is in expected position with distal tip and proximal side port in the body of the stomach. Labs Labs: Laboratory Results - last 24 hr 08/09/24 08/10/24 08/10/24 20:03 08:16 09:17 WBC 21.7 H RBC 3.83 L Hgb 12.7 L Hct 37.1 L MCV 96.9 MCH 33.2 MCHC 34.2 RDW 13.2 Plt Count 343 MPV 9.5 Immature Gran % (Auto) 1.0 H Neut % (Auto) 85.0 H Lymph % (Auto) 5.7 L [place] % (Auto) 8.1 Eos % (Auto) 0.0 Baso % (Auto) 0.2 Lymph # (Auto) 1.23 [place] # (Auto) 1.8 H Eos # (Auto) 0.0 Baso # (Auto) 0.0 Abs Immat Gran (auto) 0.22 H Absolute Neuts (auto) 18.5 H Absolute Nucleated RBC 0.000 Nucleated RBC % 0.0 Sodium 131 L Potassium 3.9 Chloride 101 Carbon Dioxide 18 L Anion Gap 12 BUN 26 H Creatinine 1.00 Estim Creat Clear Calc 73 Estimated GFR > 60 Glucose 253 H POC Capillary Glucose 288 H 259 H Calcium 7.1 L Magnesium 1.4 L Total Bilirubin 1.0 AST 31 ALT 22 Alkaline Phosphatase 76 Total Protein 7.0 Albumin 3.3 L 08/10/24 08/10/24 11:57 16:24 WBC RBC Hgb Hct MCV MCH MCHC RDW Plt Count MPV Immature Gran % (Auto) Neut % (Auto) Lymph % (Auto) [place] % (Auto) Eos % (Auto) Baso % (Auto) Lymph # (Auto) [place] # (Auto) Eos # (Auto) Baso # (Auto) Abs Immat Gran (auto) Absolute Neuts (auto) Absolute Nucleated RBC Nucleated RBC % Sodium Potassium Chloride Carbon Dioxide Anion Gap BUN Creatinine Estim Creat Clear Calc Estimated GFR Glucose POC Capillary Glucose 234 H 210 H Calcium Magnesium Total Bilirubin AST ALT Alkaline Phosphatase Total Protein Albumin
[2024-08-10 20:18] LABS: Glucose Point of Care 258 mg/dl (65-105)
[2024-08-10] MEDS: INSULIN GLARGINE (*BKC) 100 UNITS/ML 10 UNITS SUB-Q (20:19)
[2024-08-10 23:30] LABS: Glucose Point of Care 216 mg/dl (65-105)
[2024-08-11] VITALS (8 sets, daily range): BP systolic 146–173; BP diastolic 68–86; PULSE 88–102; RESP 14–22; TEMP 36.2–36.6; O2SAT 93–95
[2024-08-11] MEDS: ONDANSETRON INJ 4 MG/2 ML VIAL IV PUSH ×2 (02:41→06:41)
[2024-08-11] MEDS: MORPHINE SULFATE (*CRX) 2 MG/ML INJ IV PUSH ×6 (02:41→23:32)
[2024-08-11 05:01] LABS: Glucose Point of Care 198 mg/dl (65-105)
[2024-08-11] MEDS: PIPERACILLN/TAZ 3.375GM/NS50ML 3.375 GM/50 ML BAG IVPB ×4 (05:01→23:39)
[2024-08-11 05:54] LABS: Alanine Aminotransferase 22 U/L (6-50); Albumin Level 3.2 g/dL (3.5-5.1); Alkaline Phosphatase 87 U/L (38-126); Anion Gap 12 mmol/L (4-12); Aspartate Amino Transferase 34 U/L (17-59); Blood Urea Nitrogen 26 mg/dL (9-20); Calcium 7.4 mg/dL (8.4-10.2); Carbon Dioxide 20 mmol/L (22-30); Chloride 101 mmol/L (98-107); Estimated CRCL calculation 80 ml/min; Estimated Glomerular Filt Rate > 60; Glucose 204 mg/dL (65-110); Potassium 3.8 mmol/L (3.4-5.0); Sodium 133 mmol/L (137-145)
[2024-08-11 06:14] LABS: Basophils Percent Auto 0.2 % (0.2-1.2); Hematocrit 38.4 % (42.0-52.0); Hemoglobin 12.7 g/dL (14.0-18.0); Immature Granulocyte Absolute 0.22 K/mm3 (0.00-0.031); Immature Granulocyte Percent A 1.2 % (0-0.5); Lymphocytes Absolute Auto 1.23 K/mm3 (0.9-3.2); Lymphocytes Percent Auto 6.5 % (18.3-44.2); Mean Corpuscular HGB Conc 33.1 g/dl (32-36); Mean Corpuscular Hemoglobin 32.2 pg (26-34); Mean Corpuscular Volume 97.2 fl (80-100); Mean Platelet Volume 9.6 fl (7.4-10.4); Monocytes Absolute Auto 1.6 K/mm3 (0.1-0.6); Monocytes Percent Auto 8.5 % (2.6-8.5); Neutrophils Absolute Auto 15.8 K/mm3 (1.3-6.7); Neutrophils Percent Auto 83.6 % (45.5-73.1); Platelet Count Result 394 k/mm3 (150-375); Red Blood Count 3.95 M/mm3 (4.6-6.20); Red Cell Distribution Width 13.3 % (11.5-14.5); White Blood Count 18.9 K/mm3 (4.5-10.0)
[2024-08-11 07:28] LABS: CA 19-9 12 U/mL (<34)
[2024-08-11 08:20] LABS: Glucose Point of Care 227 mg/dl (65-105)
[2024-08-11] MEDS: INSULIN ASPART (*BKC) 100 UNITS/ML SUB-Q (11:15)
[2024-08-11 11:16] LABS: Glucose Point of Care 224 mg/dl (65-105)
--- NOTE | 2024-08-11 12:01 | P.PNIM_ITS ---
Progress Note: A&P Assessment and Plan (1) Ascites: Code(s): R18.8 - Other ascites Status: Acute (2) Abdominal pain: Code(s): R10.9 - Unspecified abdominal pain Status: Acute (3) Enteritis: Code(s): K52.9 - Noninfective gastroenteritis and colitis, unspecified Status: Acute (4) Diabetes mellitus: Code(s): E11.9 - Type 2 diabetes mellitus without complications Status: Acute (5) Alcohol abuse: Code(s): F10.10 - Alcohol abuse, uncomplicated Status: Acute (6) Hypertension: Code(s): I10 - Essential (primary) hypertension Status: Acute (7) Liver cirrhosis, alcoholic: Code(s): K70.30 - Alcoholic cirrhosis of liver without ascites Status: Acute (8) BPH (benign prostatic hyperplasia): Code(s): N40.0 - Benign prostatic hyperplasia without lower urinary tract symptoms Status: Acute (9) Hypothyroidism: Code(s): E03.9 - Hypothyroidism, unspecified Status: Acute Plan this is a 68-year-old male who presents with abdominal pain. Abdomen x-ray showing mildly dilated loops of small bowel. CT abdomen pelvis shows ascites with peritoneal noted laterally consistent with carcinomatosis, wall thickening of the distal Small bowel and liver cirrhosis. Paracentesis in the ER had bloody fluid and removal of 800 mL of dark reddish fluid.. peritoneal Cell count36 K WBC 2 K with 20 PMNs. Absolute PMNs 400. Two hundred fifty-six corrected for RBCs. Since more than 2:50 p.m. and cells treated as SBP with Rocephin. G stain showing WBCs but no organisms. Blood culture no growth. Right upper quadrant ultrasound with cirrhosis. 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 CEA elevated. CA 19 9 normal. GI has been consulted. GI consulted with recommended diagnostic laparoscopy. General surgery was consulted. however deferred laparoscopic evaluation. Await GI workup may need colonoscopy evaluation however due to current ileus this is not feasible. Undergoing PET-CT is an option however this is not done as an inpatient here. Oncology consulted. CT chest for staging performed which did not show any other metastatic lesions. Plan for therapeutic paracentesis. NG tube placement for ileus. [facility] has accepted the patient for further treatment as well. AFP stay, CEA, CA [address] scan showing thickening of distal small bowel. IV Zosyn Diabetes mellitus A1c 9. On Lantus and NovoLog Alcohol abuse on CIWA protocol Librium and Ativan as needed Hypertension Liver cirrhosis due to alcohol BPH Hypothyroidism DVT prophylaxis SCDs Code status full code Subjective Date/time seen: 08/11/24 12:01 Interval history: No overnight events. NG tube has been placed. Still has distension. Remains NPO. Results so going for therapeutic paracentesis today. No bowel movement. Review of Systems Review of Systems: All systems reviewed & are unremarkable except as noted in HPI and below Exam Narrative: GENERAL: Pleasant, in no acute distress. Well-nourished. - EYES: EOMI. Anicteric. - HENT: Moist mucous membranes. NG tube in situ - LUNGS: Clear to auscultation bilateral ly, no wheezing, rhonchi, or rales. - CARDIOVASCULAR: Regular rate and rhyth m. No murmur. No JVD. - ABDOMEN: Soft, lower abdominal tender and severely distended. No palpable masses. - EXTREMITIES: No edema. Peripheral puls es 2+. Non-tender. - NEUROLOGIC: No focal neurological defi cits. CN II-XII grossly intact. - PSYCHIATRIC: Awake, Alert and oriented x 3. Appropriate mood and affect. - SKIN: No rashes or lesions. Warm. Objective Data Vital Signs Vital Signs: Vital Signs - 24 hr 08/10/24 14:00 08/10/24 16:00 08/10/24 20:00 Temperature 98 F 97.1 F L Pulse Rate 99 94 Pulse Rate [Monitor] 95 Respiratory Rate 17 14 Blood Pressure 130/84 130/84 148/85 H Pulse Oximetry 96 98 Oxygen Delivery 08/10/24 23:45 08/10/24 20:11 08/11/24 04:00 Temperature 97.1 F L 97.1 F L Pulse Rate 99 102 H Pulse Rate [Monitor] Respiratory Rate 16 16 Blood Pressure 166/80 H 154/72 H Pulse Oximetry 94 93 Oxygen Delivery Room Air 08/11/24 05:14 08/11/24 08:00 08/11/24 09:30 Temperature 97.1 F L 97.5 F L Pulse Rate 102 H 88 Pulse Rate [Monitor] Respiratory Rate 14 15 Blood Pressure 154/72 H 148/68 H 148/68 H Pulse Oximetry 93 94 Oxygen Delivery Intake/Output Intake/Output: Intake & Output 08/08/24 08/09/24 08/10/24 08/11/24 23:59 23:59 23:59 23:59 Intake Total 3168.0 500 571 100 Output Total 200 5450 Balance 3168.0 500 977 -5832 Meds/Results Medications: Active Medications Generic Name Dose Route Start Last Admin Trade Name Freq PRN Reason Stop Dose Admin Acetaminophen 650 mg 08/07/24 17:40 Acetaminophen 325 Mg Tablet PO Q4H PRN Mild Pain (1-3) or Fever Hydrocodone Bitart/Acetaminophen 1 tab 08/07/24 15:49 08/10/24 12:46 Hydrocodone/Acetaminophen (*Crx) 5-325 Mg Tablet PO 1 tab Q4H PRN Administration Pain Rated 4-6 Chlordiazepoxide HCl 25 mg 08/08/24 12:53 Chlordiazepoxide (*Crx) 25 Mg Capsule PO Q6H PRN Withdrawal CIWA 8-15 Dextrose 12.5 gm 08/07/24 22:17 Dextrose 50% 25 Gm/50 Ml Syringe IV PUSH PRN PRN Hypoglycemia Protocol Docusate Sodium 100 mg 08/08/24 09:00 08/11/24 07:51 Docusate Sodium 100 Mg Capsule PO Not Given BID MEGGAN Finasteride 5 mg 08/08/24 09:00 08/11/24 07:49 Finasteride 5 Mg Tablet PO Not Given DAILY MEGGAN Folic Acid 1 mg 08/08/24 09:00 08/11/24 07:49 Folic Acid 1 Mg Tablet PO Not Given DAILY MEGGAN Glucagon 1 mg 08/07/24 22:17 Glucagon For Inj 1 Mg Vial IM PRN PRN Hypoglycemia Protocol Glucose 15 gm 08/07/24 22:17 Glucose Oral Gel 15 Gm Of Glucse In 37.5 Gm Tube PO PRN PRN Hypoglycemia Protocol Dextrose 1,000 mls @ 100 mls/hr 08/07/24 22:17 Dextrose 5% 1,000 Ml IVPB PRN PRN Hypoglycemia Protocol Piperacillin/Tazobactam/Dextrose 3.375 gm in 50 mls @ 100 mls/hr 08/09/24 11:00 08/11/24 11:37 Zosyn 3.375 Gm/Ns 50 Ml IVPB Infused Q6HR MEGGAN Infusion Sodium Chloride 1,000 mls @ 40 mls/hr 08/10/24 16:30 08/10/24 16:42 Normal Saline Iv IV CONT 40 mls/hr .Q24H [facility] Administration Insulin Aspart 3 - 6 units 08/10/24 18:00 08/11/24 11:15 Insulin Aspart (*Bkc) 100 Units/Ml SUB-Q 3 units Q6H [facility] Administration Protocol Insulin Glargine 10 units 08/08/24 21:00 08/10/24 20:19 Insulin Glargine (*Bkc) 100 Units/Ml SUB-Q 10 units HS [facility] Administration Levothyroxine Sodium 25 mcg 08/08/24 06:30 08/11/24 05:20 Levothyroxine Sodium 25 Mcg Tablet PO Not Given DAILY@0630 [facility] Lorazepam 2 mg 08/08/24 07:42 08/08/24 20:35 Lorazepam Inj (*Crx) 2 Mg/Ml Vial IV PUSH 2 mg Q4H PRN Administration CIWA >15 Morphine Sulfate 2 mg 08/10/24 17:41 08/11/24 06:40 Morphine Sulfate (*Crx) 2 Mg/Ml Inj IV PUSH 2 mg Q4H PRN Administration Pain Rated 7-10 Ondansetron HCl 4 mg 08/07/24 15:49 08/11/24 06:41 Ondansetron Inj 4 Mg/2 Ml Vial IV PUSH 4 mg Q4H PRN Administration Nausea Thiamine HCl 100 mg 08/08/24 09:00 08/11/24 07:49 Thiamine Hcl 100 Mg Tablet PO [facility] [place] [facility] Results: ITS Impressions Chest X-Ray 08/07/24 13:11 IMPRESSION: 1. No acute cardiopulmonary disease. Upper Quadrant Ultrasound 08/08/24 20:04 IMPRESSION: Cirrhosis. Abdomen X-Ray 08/09/24 08:36 IMPRESSION: 1. Dilated small bowel, likely adynamic ileus. Abdomen/Pelvis CT 08/09/24 17:24 IMPRESSION: Cirrhosis. Dilated proximal and mid small bowel without discrete transition point, likely representing ileus. Early obstruction not excluded. No evidence of pneumoperitoneum. Likely persistent distal small bowel wall thickening as can be seen with enteritis. Peritoneal carcinomatosis with moderate ascites. NG Tube Placement 08/10/24 15:41 IMPRESSION: 1. Successful fluoroscopic guided placement of a nasogastric tube which is in expected position with distal tip and proximal side port in the body of the stomach. Chest CT 08/11/24 10:56 IMPRESSION: 1. Peritoneal carcinomatosis. Moderate volume of ascites. 2. Cirrhosis of the liver. Labs Labs: Laboratory Results - last 24 hr 08/09/24 08/10/24 08/10/24 05:44 16:24 19:54 WBC RBC Hgb Hct MCV MCH MCHC RDW Plt Count MPV Immature Gran % (Auto) Neut % (Auto) Lymph % (Auto) [place] % (Auto) Eos % (Auto) Baso % (Auto) Lymph # (Auto) [place] # (Auto) Eos # (Auto) Baso # (Auto) Abs Immat Gran (auto) Absolute Neuts (auto) Absolute Nucleated RBC Nucleated RBC % Sodium Potassium Chloride Carbon Dioxide Anion Gap BUN Creatinine Estim Creat Clear Calc Estimated GFR Glucose POC Capillary Glucose 210 H 258 H Calcium Magnesium Total Bilirubin AST ALT Alkaline Phosphatase Total Protein Albumin CA 19-9 Antigen 08/10/24 08/11/24 08/11/24 23:27 04:58 05:23 WBC 18.9 H RBC 3.95 L Hgb 12.7 L Hct 38.4 L MCV 97.2 MCH 32.2 MCHC 33.1 RDW 13.3 Plt Count 394 H MPV 9.6 Immature Gran % (Auto) 1.2 H Neut % (Auto) 83.6 H Lymph % (Auto) 6.5 L [place] % (Auto) 8.5 Eos % (Auto) 0.0 Baso % (Auto) 0.2 Lymph # (Auto) 1.23 [place] # (Auto) 1.6 H Eos # (Auto) 0.0 Baso # (Auto) 0.0 Abs Immat Gran (auto) 0.22 H Absolute Neuts (auto) 15.8 H Absolute Nucleated RBC 0.000 Nucleated RBC % 0.0 Sodium 133 L Potassium 3.8 Chloride 101 Carbon Dioxide 20 L Anion Gap 12 BUN 26 H Creatinine 0.90 Estim Creat Clear Calc 80 Estimated GFR > 60 Glucose 204 H POC Capillary Glucose 216 H 198 H Calcium 7.4 L Magnesium 2.0 Total Bilirubin 1.0 AST 34 ALT 22 Alkaline Phosphatase 87 Total Protein 7.0 Albumin 3.2 L CA 19-9 Antigen 08/11/24 08/11/24 08:12 11:13 WBC RBC Hgb Hct MCV MCH MCHC RDW Plt Count MPV Immature Gran % (Auto) Neut % (Auto) Lymph % (Auto) [place] % (Auto) Eos % (Auto) Baso % (Auto) Lymph # (Auto) [place] # (Auto) Eos # (Auto) Baso # (Auto) Abs Immat Gran (auto) Absolute Neuts (auto) Absolute Nucleated RBC Nucleated RBC % Sodium Potassium Chloride Carbon Dioxide Anion Gap BUN Creatinine Estim Creat Clear Calc Estimated GFR Glucose POC Capillary Glucose 227 H 224 H Calcium Magnesium Total Bilirubin AST ALT Alkaline Phosphatase Total Protein Albumin CA 19-9 Antigen
[2024-08-11] MEDS: MORPHINE SULFATE (*CRX) 4 MG/ML INJ IV PUSH (16:44)
[2024-08-11 17:52] LABS: Glucose Point of Care 194 mg/dl (65-105)
--- NOTE | 2024-08-11 19:25 | PDONCCN ---
HPI - Date of Consult Date/Time: 08/11/24 19:25 Requesting Physician: Ebony Coon MD Primary Care Provider: Ruth Chavez, [employer] - Consult Narrative Reason for consult: Peritoneal carcinomatosis Narrative: Edwin Rhoades is a 68 year old male who presented to [facility] ER on 08/08/24 with complains of abdominal pain, nausea, vomiting and diarrhea. Abdominal pain started morning of admission along with nausea and diarrhea. patient states that he took a shot of Tequila for breakfast the morning of admission and had acute abdominal pain afterwards followed by dry heaving nausea and diarrhea so he came into the hospital. Patient stated he normally has 3 beers and 2 shots of liquor a day has never gone through withdrawals. He states that abdominal pain was worse with movement or palpation. Pain medications help a little bit. patient states due to chronic back pain, he drinks and Spends most of his day in his recliner. In the ED patient was noted to have leukocytosis at 18.8, anemia at 13.8, ion gap of 15, lactic acid at 3.3. A CT scan of abdomen and pelvis on 08/08/24 showed Moderate volume of ascites with peritoneal nodularity, consistent with carcinomatosis. There was a wall thickening of the distal small bowel, consistent with enteritis versus interstitial edema, and Cirrhosis of the liver. Diagnostic paracentesis was recommended and performed in the ER which is consistent with metastatic carcinoma of lower GI primary. Oncology was asked to consult for diagnosis of metastatic peritoneal carcinomatosis. Patient underwent another paracentesis today and close to 5000ml of fluid was removed on 08/11/24. Patient was seen at bedside and states that he felt somewhat better after paracentesis but now is having pelvic cramps. Review of Systems - Constitutional Reports malaise, Reports weakness, Reports weight gain - Eyes Comments: Normal - ENT Comments: Normal - Cardiovascular Reports shortness of breath, Reports shortness of breath when lying down - Respiratory Comments: No cough or phlegm production - Gastrointestinal Reports abdominal pain, Reports bloating, Reports cramping - Musculoskeletal Reports back pain, Reports body aches - Neurologic Reports weakness PMFSH Medical History: Medical History (Last Reviewed 08/09/24 @ 14:32 by NILESH Medina) BPH (benign prostatic hyperplasia) Hypertension Hypothyroidism Surgical History: Surgical History (Last Reviewed 08/09/24 @ 14:32 by NILESH Medina) History of laparoscopic cholecystectomy Family History: Family History (Last Reviewed 08/09/24 @ 14:32 by NILESH Medina) Other Diabetes mellitus - Social History Social History: Social History (Last Reviewed 08/09/24 @ 14:32 by NILESH Medina) Alcohol Use: Alcohol intake: current Drinks per week: 35 Substance Use: Substance use: former Substance use type: amphetamines Others: Spiritual care concerns: No Smoking Status: Smoking status: Former smoker Tobacco type: cigarettes Smoking Pack-years: Smoking packs per day: 1 Smoking cigarettes per day: 20.0 Years smoked: 23 Smoking pack-years: 23.00 Social Determinants of Health: Do You Feel Safe in your Home?: Yes Has the Lack of Transportation Kept You From Medical Appointments or From Getting Medications?: No Within the Past 12 Months, Were You Worried Whether Your Food Would Run Out Before You Got Money to Buy More?: Never True What is Your Housing Situation Today?: I Have Housing Are You Worried That in the Next 2 Months, You May Not Have Your Own Housing to Live In?: No Do You Have Trouble Paying Your Heating Or Electricity Bill?: No Do You Have Trouble Paying For Medicines?: No Are You Currently Unemployed and Looking for Work?: No Highest Level of Education Completed: Don't Know Do You Have Trouble With Childcare or the Care of a Family Member?: No Exam - Vital Signs Vital Signs - 24 hr 08/10/24 20:00 08/10/24 23:45 08/10/24 20:11 Temperature 36.2 C L 36.2 C L Pulse Rate 94 99 Respiratory Rate 14 16 Blood Pressure 148/85 H 166/80 H Pulse Oximetry 98 94 Oxygen Delivery Room Air 08/11/24 04:00 08/11/24 05:14 08/11/24 08:00 Temperature 36.2 C L 36.2 C L 36.4 C L Pulse Rate 102 H 102 H 88 Respiratory Rate 16 14 15 Blood Pressure 154/72 H 154/72 H 148/68 H Pulse Oximetry 93 93 94 Oxygen Delivery 08/11/24 09:30 08/11/24 12:00 08/11/24 12:00 Temperature 36.3 C L Pulse Rate 98 Respiratory Rate 16 Blood Pressure 148/68 H 148/68 H 146/74 H Pulse Oximetry 95 Oxygen Delivery 08/11/24 16:30 08/11/24 16:00 Temperature 36.4 C L Pulse Rate 102 H Respiratory Rate 22 H Blood Pressure 173/70 H 173/70 H Pulse Oximetry 94 Oxygen Delivery Room Air - Exam HEENT: EOMI, PERRLA, sclera clear Neck: supple Lungs: clear to auscultation, normal air movement Heart: no murmurs, gallops, or rubs, regular rhythm, regular rate Abdomen: abdomen firm, distended, guarding Extremities: normal pulses Neurological: normal speech, normal reflexes, generalized weakness Psychological: mood NL - Lab Results Laboratory Last Values WBC 18.9 K/mm3 (4.5-10.0) H 08/11/24 05:23 RBC 3.95 M/mm3 (4.6-6.20) L 08/11/24 05:23 Hgb 12.7 g/dL (14.0-18.0) L 08/11/24 05:23 Hct 38.4 % (42.0-52.0) L 08/11/24 05:23 MCV 97.2 fl (80-100) 08/11/24 05:23 MCH 32.2 pg (26-34) 08/11/24 05:23 MCHC 33.1 g/dl (32-36) 08/11/24 05:23 RDW 13.3 % (11.5-14.5) 08/11/24 05:23 Plt Count 394 k/mm3 (150-375) H 08/11/24 05:23 MPV 9.6 fl (7.4-10.4) 08/11/24 05:23 Immature Gran % (Auto) 1.2 % (0-0.5) H 08/11/24 05:23 Neut % (Auto) 83.6 % (45.5-73.1) H 08/11/24 05:23 Lymph % (Auto) 6.5 % (18.3-44.2) L 08/11/24 05:23 [place] % (Auto) 8.5 % (2.6-8.5) 08/11/24 05:23 Eos % (Auto) 0.0 % (0-4.4) 08/11/24 05:23 Baso % (Auto) 0.2 % (0.2-1.2) 08/11/24 05:23 Lymph # (Auto) 1.23 K/mm3 (0.9-3.2) 08/11/24 05:23 [place] # (Auto) 1.6 K/mm3 (0.1-0.6) H 08/11/24 05:23 Eos # (Auto) 0.0 K/mm3 (0-0.3) 08/11/24 05:23 Baso # (Auto) 0.0 K/mm3 (0.0-0.1) 08/11/24 05:23 Abs Immat Gran (auto) 0.22 K/mm3 (0.00-0.031) H 08/11/24 05:23 Absolute Neuts (auto) 15.8 K/mm3 (1.3-6.7) H 08/11/24 05:23 Absolute Nucleated RBC 0.000 K/mm3 (0.0-0.012) 08/11/24 05:23 Nucleated RBC % 0.0 % (0.0-0.2) 08/11/24 05:23 PT 16.4 Seconds (11.1-14.7) H 08/07/24 22:39 INR 1.3 08/07/24 22:39 APTT 28.0 Seconds (22.3-36.8) 08/07/24 11:54 Sodium 133 mmol/L (137-145) L 08/11/24 05:23 Potassium 3.8 mmol/L (3.4-5.0) 08/11/24 05:23 Chloride 101 mmol/L (98-107) 08/11/24 05:23 Carbon Dioxide 20 mmol/L (22-30) L 08/11/24 05:23 Anion Gap 12 mmol/L (4-12) 08/11/24 05:23 BUN 26 mg/dL (9-20) H 08/11/24 05:23 Creatinine 0.90 mg/dL (0.7-1.3) 08/11/24 05:23 Estim Creat Clear Calc 80 ml/min 08/11/24 05:23 Estimated GFR > 60 (59-) 08/11/24 05:23 Glucose 204 mg/dL (65-110) H 08/11/24 05:23 POC Capillary Glucose 194 mg/dl (65-105) H 08/11/24 17:34 Hemoglobin A1c 9.0 % (<5.7) H 08/08/24 05:53 Lactic Acid 2.7 mmol/L (0.7-2.0) H 08/07/24 15:33 Calcium 7.4 mg/dL (8.4-10.2) L 08/11/24 05:23 Magnesium 2.0 mg/dL (1.6-2.3) 08/11/24 05:23 Total Bilirubin 1.0 mg/dL (0.2-1.3) 08/11/24 05:23 AST 34 U/L (17-59) 08/11/24 05:23 ALT 22 U/L (6-50) 08/11/24 05:23 Alkaline Phosphatase 87 U/L (38-126) 08/11/24 05:23 Ammonia 19 umol/L (9-30) 08/08/24 13:25 Troponin I < 0.012 ng/mL (0.000-0.034) 08/07/24 11:54 Total Protein 7.0 g/dL (6.3-8.2) 08/11/24 05:23 Albumin 3.2 g/dL (3.5-5.1) L 08/11/24 05:23 Lipase 64 U/L (23-300) 08/07/24 11:54 Carcinoembryonic Ag 61.2 ng/mL (0.0-3.0) H 08/09/24 05:43 CA 19-9 Antigen 12 U/mL (<34) 08/09/24 05:44 TSH (Reflex) 5.450 uIU/mL (0.465-4.68) H 08/09/24 05:44 Free T4 1.25 ng/dL (0.78-2.19) 08/09/24 05:44 Total T3 0.97 NG/ML (0.97-1.69) 08/09/24 05:44 Peritoneal Source Peritoneal fluid 08/07/24 14:00 Peritoneal Color Red (Colorless) 08/07/24 14:00 Peritoneal Appearance Bloody (Clear) A 08/07/24 14:00 Peritoneal RBC 93246 /uL (0-32381) H 08/07/24 14:00 Periton Nuc Cells 2004 /uL (0-500) H 08/07/24 14:00 Periton Neutrophils 20 % (0-25) 08/07/24 14:00 Periton Lymphocytes 37 % 08/07/24 14:00 Peritoneal Monocytes 36 % 08/07/24 14:00 Periton Mesothelial 4 % 08/07/24 14:00 Periton Macrophages 3 % 08/07/24 14:00 Meds Home Medications Medication Instructions Recorded Confirmed Type amlodipine 10 mg tablet 10 mg PO DAILY 08/07/24 08/07/24 History diclofenac sodium 75 mg 75 mg PO DAILY 08/07/24 08/07/24 History tablet,delayed release finasteride 5 mg tablet 5 mg PO DAILY 08/07/24 08/07/24 History levothyroxine 25 mcg tablet 25 mcg PO DAILY 08/07/24 08/07/24 History losartan 100 mg tablet 100 mg PO HS 08/07/24 08/07/24 History tadalafil 5 mg tablet 5 mg PO DAILY 08/07/24 08/07/24 History Allergies Allergy/AdvReac Type Severity Reaction Status Date / Time No Known Allergies Allergy Verified 08/07/24 18:39 Results - Labs CBC & Chem 7: 08/11/24 05:23 08/11/24 05:23 Labs: Short CBC 08/11/24 Range/Units 05:23 WBC 18.9 H (4.5-10.0) K/mm3 Hgb 12.7 L (14.0-18.0) g/dL Hct 38.4 L (42.0-52.0) % Plt Count 394 H (150-375) k/mm3 BMP 08/11/24 05:23 Sodium 133 L Potassium 3.8 Chloride 101 Carbon Dioxide 20 L BUN 26 H Creatinine 0.90 Glucose 204 H Calcium 7.4 L Liver Function 08/11/24 Range/Units 05:23 Total Bilirubin 1.0 (0.2-1.3) mg/dL AST 34 (17-59) U/L ALT 22 (6-50) U/L Alkaline Phosphatase 87 (38-126) U/L Albumin 3.2 L (3.5-5.1) g/dL Assessment and Plan (1) Abdominal carcinomatosis Code(s): C76.2 - Malignant neoplasm of abdomen Status: Acute Assessment and Plan: This is a 68-year-old male with- Peritoneal carcinomatosis- Patient with new diagnosis of peritoneal carcinomatosis on abdominal CT scan performed on 08/08/2024. A diagnostic paracentesis was performed on 08/08/2024 which showed metastatic carcinoma of GI primary. Patient has ileus at this time and has NG tube placed. Cancer enzymes performed shows normal CA 19-9 but high CEA. GI team is following the patient. We do recommend a diagnostic colonoscopy whenever the ileus is resolved. Patient has stage IV metastatic cancer and the prognosis is guarded. Any treatment rendered will be palliative in nature. Chemotherapy cannot be rendered via patient has active ileus. We will await resolution of ileus as well as colonoscopy next week if possible.
[2024-08-11] MEDS: INSULIN GLARGINE (*BKC) 100 UNITS/ML 10 UNITS SUB-Q (20:30)
[2024-08-11] MEDS: SODIUM CHLORIDE 0.9% IV 1,000 ML 40 ML IV CONT (20:34)
[2024-08-11 20:36] LABS: Glucose Point of Care 181 mg/dl (65-105)
[2024-08-11 23:53] LABS: Glucose Point of Care 193 mg/dl (65-105)
[2024-08-12] VITALS (7 sets, daily range): BP systolic 130–166; BP diastolic 75–108; PULSE 87–98; RESP 16–18; TEMP 36–37; O2SAT 94–98
[2024-08-12] MEDS: MORPHINE SULFATE (*CRX) 2 MG/ML INJ IV PUSH ×8 (03:24→22:44)
[2024-08-12 05:41] LABS: Basophils Percent Auto 0.2 % (0.2-1.2); Eosinophils Percent Auto 0.1 % (0-4.4); Hematocrit 41.5 % (42.0-52.0); Hemoglobin 13.9 g/dL (14.0-18.0); Immature Granulocyte Absolute 0.16 K/mm3 (0.00-0.031); Immature Granulocyte Percent A 1.1 % (0-0.5); Lymphocytes Absolute Auto 1.36 K/mm3 (0.9-3.2); Lymphocytes Percent Auto 9.1 % (18.3-44.2); Mean Corpuscular HGB Conc 33.5 g/dl (32-36); Mean Corpuscular Hemoglobin 32.3 pg (26-34); Mean Corpuscular Volume 96.5 fl (80-100); Monocytes Absolute Auto 1.2 K/mm3 (0.1-0.6); Monocytes Percent Auto 8.1 % (2.6-8.5); Neutrophils Absolute Auto 12.2 K/mm3 (1.3-6.7); Neutrophils Percent Auto 81.4 % (45.5-73.1); Platelet Count Result 442 k/mm3 (150-375); Red Cell Distribution Width 13.4 % (11.5-14.5)
[2024-08-12 05:56] LABS: Glucose Point of Care 176 mg/dl (65-105)
[2024-08-12 06:00] LABS: Alanine Aminotransferase 25 U/L (6-50); Albumin Level 3.4 g/dL (3.5-5.1); Alkaline Phosphatase 79 U/L (38-126); Anion Gap 9 mmol/L (4-12); Aspartate Amino Transferase 41 U/L (17-59); Bilirubin,Total 0.9 mg/dL (0.2-1.3); Blood Urea Nitrogen 24 mg/dL (9-20); Calcium 7.7 mg/dL (8.4-10.2); Carbon Dioxide 29 mmol/L (22-30); Chloride 102 mmol/L (98-107); Estimated CRCL calculation 89 ml/min; Estimated Glomerular Filt Rate > 60; Glucose 172 mg/dL (65-110); Potassium 3.8 mmol/L (3.4-5.0); Sodium 140 mmol/L (137-145)
[2024-08-12] MEDS: PIPERACILLN/TAZ 3.375GM/NS50ML 3.375 GM/50 ML BAG IVPB ×3 (06:03→17:04)
--- NOTE | 2024-08-12 09:18 | P.PNGI_ITS ---
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 Status: Acute Assessment and Plan: prognosis is guarded, + cytology in ascitic fluid oncology on board can not do colonoscopy as he still has ileus, he says that last one about 8 years ago he is frustrated and asking if he is going to soon (2) Ascites: Code(s): R18.8 - Other ascites Status: Acute Assessment and Plan: paracentesis x2 may need to drain more (3) Cirrhosis: Code(s): K74.60 - Unspecified cirrhosis of liver Status: Acute (4) Ileus: Code(s): K56.7 - Ileus, unspecified Status: Acute Assessment and Plan: still no BM NGT in place Subjective Date/time seen: 08/12/24 09:18 Interval history: NGT still in place with dark gastric content, similar abdominal pain yesterday had second paracentesis still not passing gas Review of Systems Review of Systems: All systems reviewed & are unremarkable except as noted in HPI and below Exam Const: General: no acute distress Other: feeling sick HENMT: Other: NGT in place with dark gastric content Eyes: General: appearance normal, both eyes and all related structures Neck: Neck: supple Resp: Auscultation: clear to auscultation bilaterally Cardio: Rate: regular rate Rhythm: regular rhythm GI: Inspection: distended GI Palp: Yes Tenderness to palpation present (GI) (diffusely, no rebound) Other: hypoactive BS Skin: General skin exam: normal color Neuro: Speech: normal speech Motor exam (neuro): 5/5 motor strength present throughout Extrem: General: normal to inspection Psych: Other: frustrated Objective Data Vital Signs Vital Signs: Vital Signs - 24 hr 08/11/24 09:30 08/11/24 12:00 08/11/24 12:00 Temperature 97.4 F L Pulse Rate 98 Respiratory Rate 16 Blood Pressure 148/68 H 148/68 H 146/74 H Pulse Oximetry 95 Oxygen Delivery 08/11/24 16:30 08/11/24 16:00 08/11/24 20:00 Temperature 97.5 F L 97.9 F Pulse Rate 102 H 99 Respiratory Rate 22 H 18 Blood Pressure 173/70 H 173/70 H 157/86 H Pulse Oximetry 94 93 Oxygen Delivery Room Air 08/12/24 00:00 08/11/24 20:15 08/12/24 04:00 Temperature 98.4 F 98.6 F Pulse Rate 98 94 Respiratory Rate 18 18 Blood Pressure 155/78 H 140/75 Pulse Oximetry 94 94 Oxygen Delivery Room Air 08/12/24 08:00 Temperature 98.0 F Pulse Rate 98 Respiratory Rate 16 Blood Pressure 130/86 Pulse Oximetry 97 Oxygen Delivery Intake/Output Intake/Output: Intake & Output 08/09/24 08/10/24 08/11/24 08/12/24 23:59 23:59 23:59 23:59 Intake Total 227 326 2872 100 Output Total 200 8300 2500 Balance [phone] -[phone] -[phone] Meds/Results Medications: Active Medications Generic Name Dose Route Start Last Admin Trade Name Freq PRN Reason Stop Dose Admin Acetaminophen 650 mg 08/07/24 17:40 Acetaminophen 325 Mg Tablet PO Q4H PRN Mild Pain (1-3) or Fever Hydrocodone Bitart/Acetaminophen 1 tab 08/07/24 15:49 08/10/24 12:46 Hydrocodone/Acetaminophen (*Crx) 5-325 Mg Tablet PO 1 tab Q4H PRN Administration Pain Rated 4-6 Chlordiazepoxide HCl 25 mg 08/08/24 12:53 Chlordiazepoxide (*Crx) 25 Mg Capsule PO Q6H PRN Withdrawal CIWA 8-15 Dextrose 12.5 gm 08/07/24 22:17 Dextrose 50% 25 Gm/50 Ml Syringe IV PUSH PRN PRN Hypoglycemia Protocol Docusate Sodium 100 mg 08/08/24 09:00 08/12/24 07:50 Docusate Sodium 100 Mg Capsule PO Not Given BID MEGGAN Finasteride 5 mg 08/08/24 09:00 08/12/24 07:42 Finasteride 5 Mg Tablet PO Not Given DAILY MEGGAN Folic Acid 1 mg 08/08/24 09:00 08/12/24 07:42 Folic Acid 1 Mg Tablet PO Not Given DAILY MEGGAN Glucagon 1 mg 08/07/24 22:17 Glucagon For Inj 1 Mg Vial IM PRN PRN Hypoglycemia Protocol Glucose 15 gm 08/07/24 22:17 Glucose Oral Gel 15 Gm Of Glucse In 37.5 Gm Tube PO PRN PRN Hypoglycemia Protocol Dextrose 1,000 mls @ 100 mls/hr 08/07/24 22:17 Dextrose 5% 1,000 Ml IVPB PRN PRN Hypoglycemia Protocol Piperacillin/Tazobactam/Dextrose 3.375 gm in 50 mls @ 100 mls/hr 08/09/24 11:00 08/12/24 06:33 Zosyn 3.375 Gm/Ns 50 Ml IVPB Infused Q6HR [facility] Infusion Sodium Chloride 1,000 mls @ 40 mls/hr 08/10/24 16:30 08/11/24 20:34 Normal Saline Iv IV CONT 40 mls/hr .Q24H [facility] Administration Insulin Aspart 3 - 6 units 08/10/24 18:00 08/12/24 05:52 Insulin Aspart (*Bkc) 100 Units/Ml SUB-Q Not Given Q6H [facility] Protocol Insulin Glargine 10 units 08/08/24 21:00 08/11/24 20:30 Insulin Glargine (*Bkc) 100 Units/Ml SUB-Q 10 units HS [facility] Administration Levothyroxine Sodium 25 mcg 08/08/24 06:30 08/12/24 05:50 Levothyroxine Sodium 25 Mcg Tablet PO Not Given DAILY@0630 [facility] Lorazepam 2 mg 08/08/24 07:42 08/08/24 20:35 Lorazepam Inj (*Crx) 2 Mg/Ml Vial IV PUSH 2 mg Q4H PRN Administration CIWA >15 Morphine Sulfate 2 mg 08/11/24 17:56 08/12/24 08:28 Morphine Sulfate (*Crx) 2 Mg/Ml Inj IV PUSH 2 mg Q2H PRN Administration Pain Rated 7-10 Ondansetron HCl 4 mg 08/07/24 15:49 08/11/24 06:41 Ondansetron Inj 4 Mg/2 Ml Vial IV PUSH 4 mg Q4H PRN Administration Nausea Thiamine HCl 100 mg 08/08/24 09:00 08/12/24 07:42 Thiamine Hcl 100 Mg Tablet PO Not Given [facility] Radiology Results: ITS Impressions Chest X-Ray 08/07/24 13:11 IMPRESSION: 1. No acute cardiopulmonary disease. Upper Quadrant Ultrasound 08/08/24 20:04 IMPRESSION: Cirrhosis. Abdomen X-Ray 08/09/24 08:36 IMPRESSION: 1. Dilated small bowel, likely adynamic ileus. NG Tube Placement 08/10/24 15:41 IMPRESSION: 1. Successful fluoroscopic guided placement of a nasogastric tube which is in expected position with distal tip and proximal side port in the body of the stomach. Chest CT 08/11/24 10:56 IMPRESSION: 1. Peritoneal carcinomatosis. Moderate volume of ascites. 2. Cirrhosis of the liver. Paracentesis Ultrasound 08/11/24 12:36 IMPRESSION: 1. Successful ultrasound-guided paracentesis yielding 4400 mL of reddish fluid. Abdomen/Pelvis CT 08/11/24 17:17 IMPRESSION: 1. Ascites seen in the pelvis, around the liver, right paracolic gutter and around the spleen. Possibility of subcapsular hematoma around the liver cannot be excluded. 2. Liver cirrhosis. 3. Fat stranding in the mesentery which may indicate inflammatory changes or edema. 4. Thickened wall of the small bowel in the area of the pelvis which may indicate enteritis. No air is seen in the wall. Ischemia cannot be excluded. This thickening is slightly more prominent than the previous study. Labs Labs: Laboratory Results - last 24 hr 08/11/24 08/11/24 08/11/24 11:13 17:34 20:23 WBC RBC Hgb Hct MCV MCH MCHC RDW Plt Count MPV Immature Gran % (Auto) Neut % (Auto) Lymph % (Auto) [place] % (Auto) Eos % (Auto) Baso % (Auto) Lymph # (Auto) [place] # (Auto) Eos # (Auto) Baso # (Auto) Abs Immat Gran (auto) Absolute Neuts (auto) Absolute Nucleated RBC Nucleated RBC % Sodium Potassium Chloride Carbon Dioxide Anion Gap BUN Creatinine Estim Creat Clear Calc Estimated GFR Glucose POC Capillary Glucose 224 H 194 H 181 H Calcium Magnesium Total Bilirubin AST ALT Alkaline Phosphatase Total Protein Albumin 08/11/24 08/12/24 08/12/24 23:37 05:27 05:52 WBC 15.0 H RBC 4.30 L Hgb 13.9 L Hct 41.5 L MCV 96.5 MCH 32.3 MCHC 33.5 RDW 13.4 Plt Count 442 H MPV 9.0 Immature Gran % (Auto) 1.1 H Neut % (Auto) 81.4 H Lymph % (Auto) 9.1 L [place] % (Auto) 8.1 Eos % (Auto) 0.1 Baso % (Auto) 0.2 Lymph # (Auto) 1.36 [place] # (Auto) 1.2 H Eos # (Auto) 0.0 Baso # (Auto) 0.0 Abs Immat Gran (auto) 0.16 H Absolute Neuts (auto) 12.2 H Absolute Nucleated RBC 0.000 Nucleated RBC % 0.0 Sodium 140 Potassium 3.8 Chloride 102 Carbon Dioxide 29 Anion Gap 9 BUN 24 H Creatinine 0.80 Estim Creat Clear Calc 89 Estimated GFR > 60 Glucose 172 H POC Capillary Glucose 193 H 176 H Calcium 7.7 L Magnesium 2.0 Total Bilirubin 0.9 AST 41 ALT 25 Alkaline Phosphatase 79 Total Protein 7.0 Albumin 3.4 L
--- NOTE | 2024-08-12 11:37 | P.PNIM_ITS ---
Progress Note: A&P Assessment and Plan (1) Ascites: Code(s): R18.8 - Other ascites Status: Acute (2) Abdominal pain: Code(s): R10.9 - Unspecified abdominal pain Status: Acute (3) Enteritis: Code(s): K52.9 - Noninfective gastroenteritis and colitis, unspecified Status: Acute (4) Diabetes mellitus: Code(s): E11.9 - Type 2 diabetes mellitus without complications Status: Acute (5) Alcohol abuse: Code(s): F10.10 - Alcohol abuse, uncomplicated Status: Acute (6) Hypertension: Code(s): I10 - Essential (primary) hypertension Status: Acute (7) Liver cirrhosis, alcoholic: Code(s): K70.30 - Alcoholic cirrhosis of liver without ascites Status: Acute (8) BPH (benign prostatic hyperplasia): Code(s): N40.0 - Benign prostatic hyperplasia without lower urinary tract symptoms Status: Acute (9) Hypothyroidism: Code(s): E03.9 - Hypothyroidism, unspecified Status: Acute Plan this is a 68-year-old male who presents with abdominal pain. Abdomen x-ray showing mildly dilated loops of small bowel. CT abdomen pelvis shows ascites with peritoneal noted laterally consistent with carcinomatosis, wall thickening of the distal Small bowel and liver cirrhosis. Paracentesis in the ER had bloody fluid and removal of 800 mL of dark reddish fluid.. peritoneal Cell count36 K WBC 2 K with 20 PMNs. Absolute PMNs 400. Two hundred fifty-six corrected for RBCs. Since more than 2:50 p.m. and cells treated as SBP with Rocephin. G stain showing WBCs but no organisms. Blood culture no growth. Right upper quadrant ultrasound with cirrhosis. 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 CEA elevated. CA 19 9 normal. GI has been consulted. GI consulted with recommended diagnostic laparoscopy. General surgery was consulted. however deferred laparoscopic evaluation. Await GI workup may need colonoscopy evaluation however due to current ileus this is not feasible. Undergoing PET-CT is an option however this is not done as an inpatient here. Oncology consulted. CT chest for staging performed which did not show any other metastatic lesions. Status post therapeutic paracentesis with removal of 4.4 L 08/11/2024. NG tube placement for ileus. Still ongoing with large NG output. Will get Dulcolax suppository today. [facility] has accepted the patient for further treatment as well. AFP stay, CEA, CA [address] scan showing thickening of distal small bowel. IV Zosyn leukocytosis improving Diabetes mellitus A1c 9. On Lantus and NovoLog Alcohol abuse on CIWA protocol Librium and Ativan as needed Hypertension Liver cirrhosis due to alcohol BPH Hypothyroidism DVT prophylaxis SCDs Code status full code Subjective Date/time seen: 08/12/24 11:37 Interval history: On and off abdominal pain. No bowel movement. Paracentesis done yesterday. Repeat CT reviewed. Review of Systems Review of Systems: All systems reviewed & are unremarkable except as noted in HPI and below Exam Narrative: GENERAL: Pleasant, in no acute distress. Well-nourished. - EYES: EOMI. Anicteric. - HENT: Moist mucous membranes. NG tube in situ with bilious drainage in the canister - LUNGS: Clear to auscultation bilateral ly, no wheezing, rhonchi, or rales. - CARDIOVASCULAR: Regular rate and rhyth m. No murmur. No JVD. - ABDOMEN: Soft, lower abdominal tender and severely distended. No palpable masses. - EXTREMITIES: No edema. Peripheral puls es 2+. Non-tender. - NEUROLOGIC: No focal neurological defi cits. CN II-XII grossly intact. - PSYCHIATRIC: Awake, Alert and oriented x 3. Appropriate mood and affect. - SKIN: No rashes or lesions. Warm. Objective Data Vital Signs Vital Signs: Vital Signs - 24 hr 08/11/24 12:00 08/11/24 12:00 08/11/24 16:30 Temperature 97.4 F L 97.5 F L Pulse Rate 98 102 H Respiratory Rate 16 22 H Blood Pressure 148/68 H 146/74 H 173/70 H Pulse Oximetry 95 94 Oxygen Delivery Room Air 08/11/24 16:00 08/11/24 20:00 08/12/24 00:00 Temperature 97.9 F 98.4 F Pulse Rate 99 98 Respiratory Rate 18 18 Blood Pressure 173/70 H 157/86 H 155/78 H Pulse Oximetry 93 94 Oxygen Delivery 08/11/24 20:15 08/12/24 04:00 08/12/24 08:00 Temperature 98.6 F 98.0 F Pulse Rate 94 98 Respiratory Rate 18 16 Blood Pressure 140/75 130/86 Pulse Oximetry 94 97 Oxygen Delivery Room Air 08/12/24 08:20 Temperature Pulse Rate Respiratory Rate Blood Pressure 130/86 Pulse Oximetry Oxygen Delivery Intake/Output Intake/Output: Intake & Output 08/09/24 08/10/24 08/11/24 08/12/24 23:59 23:59 23:59 23:59 Intake Total 656 870 8594 220 Output Total 200 8300 2500 Balance 500 301 -[phone] -0550 Meds/Results Medications: Active Medications Generic Name Dose Route Start Last Admin Trade Name Freq PRN Reason Stop Dose Admin Acetaminophen 650 mg 08/07/24 17:40 Acetaminophen 325 Mg Tablet PO Q4H PRN Mild Pain (1-3) or Fever Hydrocodone Bitart/Acetaminophen 1 tab 08/07/24 15:49 08/10/24 12:46 Hydrocodone/Acetaminophen (*Crx) 5-325 Mg Tablet PO 1 tab Q4H PRN Administration Pain Rated 4-6 Bisacodyl 10 mg 08/12/24 11:32 Bisacodyl 10 Mg Suppository RECTAL 08/12/24 11:33 ONCE ONE Chlordiazepoxide HCl 25 mg 08/08/24 12:53 Chlordiazepoxide (*Crx) 25 Mg Capsule PO Q6H PRN Withdrawal CIWA 8-15 Dextrose 12.5 gm 08/07/24 22:17 Dextrose 50% 25 Gm/50 Ml Syringe IV PUSH PRN PRN Hypoglycemia Protocol Docusate Sodium 100 mg 08/08/24 09:00 08/12/24 07:50 Docusate Sodium 100 Mg Capsule PO Not Given BID MEGGAN Finasteride 5 mg 08/08/24 09:00 08/12/24 07:42 Finasteride 5 Mg Tablet PO Not Given DAILY MEGGAN Folic Acid 1 mg 08/08/24 09:00 08/12/24 07:42 Folic Acid 1 Mg Tablet PO Not Given DAILY MEGGAN Glucagon 1 mg 08/07/24 22:17 Glucagon For Inj 1 Mg Vial IM PRN PRN Hypoglycemia Protocol Glucose 15 gm 08/07/24 22:17 Glucose Oral Gel 15 Gm Of Glucse In 37.5 Gm Tube PO PRN PRN Hypoglycemia Protocol Dextrose 1,000 mls @ 100 mls/hr 08/07/24 22:17 Dextrose 5% 1,000 Ml IVPB PRN PRN Hypoglycemia Protocol Piperacillin/Tazobactam/Dextrose 3.375 gm in 50 mls @ 100 mls/hr 08/09/24 11:00 08/12/24 11:10 Zosyn 3.375 Gm/Ns 50 Ml IVPB 100 mls/hr Q6HR MEGGAN Administration Sodium Chloride 1,000 mls @ 40 mls/hr 08/10/24 16:30 08/11/24 20:34 Normal Saline Iv IV CONT 40 mls/hr .Q24H MEGGAN Administration Insulin Aspart 3 - 6 units 08/10/24 18:00 08/12/24 05:52 Insulin Aspart (*Bkc) 100 Units/Ml SUB-Q Not Given Q6H [facility] Protocol Insulin Glargine 10 units 08/08/24 21:00 08/11/24 20:30 Insulin Glargine (*Bkc) 100 Units/Ml SUB-Q 10 units HS [facility] Administration Levothyroxine Sodium 25 mcg 08/08/24 06:30 08/12/24 05:50 Levothyroxine Sodium 25 Mcg Tablet PO Not Given DAILY@0630 [facility] Lorazepam 2 mg 08/08/24 07:42 08/08/24 20:35 Lorazepam Inj (*Crx) 2 Mg/Ml Vial IV PUSH 2 mg Q4H PRN Administration CIWA >15 Morphine Sulfate 2 mg 08/11/24 17:56 08/12/24 08:28 Morphine Sulfate (*Crx) 2 Mg/Ml Inj IV PUSH 2 mg Q2H PRN Administration Pain Rated 7-10 Ondansetron HCl 4 mg 08/07/24 15:49 08/11/24 06:41 Ondansetron Inj 4 Mg/2 Ml Vial IV PUSH 4 mg Q4H PRN Administration Nausea Thiamine HCl 100 mg 08/08/24 09:00 08/12/24 07:42 Thiamine Hcl 100 Mg Tablet PO [facility] [place] [facility] [place] Results: ITS Impressions Chest X-Ray 08/07/24 13:11 IMPRESSION: 1. No acute cardiopulmonary disease. Upper Quadrant Ultrasound 08/08/24 20:04 IMPRESSION: Cirrhosis. Abdomen X-Ray 08/09/24 08:36 IMPRESSION: 1. Dilated small bowel, likely adynamic ileus. NG Tube Placement 08/10/24 15:41 IMPRESSION: 1. Successful fluoroscopic guided placement of a nasogastric tube which is in expected position with distal tip and proximal side port in the body of the s tomach. Chest CT 08/11/24 10:56 IMPRESSION: 1. Peritoneal carcinomatosis. Moderate volume of ascites. 2. Cirrhosis of the liver. Paracentesis Ultrasound 08/11/24 12:36 IMPRESSION: 1. Successful ultrasound-guided paracentesis yielding 4400 mL of reddish fluid. Abdomen/Pelvis CT 08/11/24 17:17 IMPRESSION: 1. Ascites seen in the pelvis, around the liver, right paracolic gutter and around the spleen. Possibility of subcapsular hematoma around the liver cannot be excluded. 2. Liver cirrhosis. 3. Fat stranding in the mesentery which may indicate inflammatory changes or edema. 4. Thickened wall of the small bowel in the area of the pelvis which may indicate enteritis. No air is seen in the wall. Ischemia cannot be excluded. This thickening is slightly more prominent than the previous study. Labs Labs: Laboratory Results - last 24 hr 08/11/24 08/11/24 08/11/24 17:34 20:23 23:37 WBC RBC Hgb Hct MCV MCH MCHC RDW Plt Count MPV Immature Gran % (Auto) Neut % (Auto) Lymph % (Auto) [place] % (Auto) Eos % (Auto) Baso % (Auto) Lymph # (Auto) [place] # (Auto) Eos # (Auto) Baso # (Auto) Abs Immat Gran (auto) Absolute Neuts (auto) Absolute Nucleated RBC Nucleated RBC % Sodium Potassium Chloride Carbon Dioxide Anion Gap BUN Creatinine Estim Creat Clear Calc Estimated GFR Glucose POC Capillary Glucose 194 H 181 H 193 H Calcium Magnesium Total Bilirubin AST ALT Alkaline Phosphatase Total Protein Albumin 08/12/24 08/12/24 05:27 05:52 WBC 15.0 H RBC 4.30 L Hgb 13.9 L Hct 41.5 L MCV 96.5 MCH 32.3 MCHC 33.5 RDW 13.4 Plt Count 442 H MPV 9.0 Immature Gran % (Auto) 1.1 H Neut % (Auto) 81.4 H Lymph % (Auto) 9.1 L [place] % (Auto) 8.1 Eos % (Auto) 0.1 Baso % (Auto) 0.2 Lymph # (Auto) 1.36 [place] # (Auto) 1.2 H Eos # (Auto) 0.0 Baso # (Auto) 0.0 Abs Immat Gran (auto) 0.16 H Absolute Neuts (auto) 12.2 H Absolute Nucleated RBC 0.000 Nucleated RBC % 0.0 Sodium 140 Potassium 3.8 Chloride 102 Carbon Dioxide 29 Anion Gap 9 BUN 24 H Creatinine 0.80 Estim Creat Clear Calc 89 Estimated GFR > 60 Glucose 172 H POC Capillary Glucose 176 H Calcium 7.7 L Magnesium 2.0 Total Bilirubin 0.9 AST 41 ALT 25 Alkaline Phosphatase 79 Total Protein 7.0 Albumin 3.4 L
[2024-08-12] MEDS: LIDOCAINE HCL 1% PF INJ 5 ML VIAL INFILTRATE (12:15)
--- NOTE | 2024-08-12 12:19 | WPDONCPN ---
Progress Note: A/P (1) Abdominal carcinomatosis Code(s): C76.2 - Malignant neoplasm of abdomen Status: Acute Assessment and plan: Patient with new diagnosis of peritoneal carcinomatosis on abdominal CT scan performed on 08/08/2024. A diagnostic paracentesis was performed on 08/08/2024 which showed metastatic carcinoma of GI primary. Patient has ileus at this time and has NG tube placed. Cancer enzymes performed shows normal CA 19-9 but high CEA. GI team is following the patient. We do recommend a diagnostic colonoscopy whenever the ileus is resolved. Patient has stage IV metastatic cancer and the prognosis is guarded. Any treatment rendered will be palliative in nature. Chemotherapy cannot be rendered via patient has active ileus. We will await resolution of ileus as well as colonoscopy next week if possible. - Time Spent With Patient Total time spent is greater than 50% in coordination of care (as documented) at patient's floor/unit and/or counseling patient: 25 - 35 minutes Subjective Interval history: Patient seen at bedside today. NG in place, no BM. Ileus continues. Review of Systems - Constitutional Reports fatigue, Reports lack of energy - Eyes Comments: normal - ENT Comments: Normal - Respiratory Comments: No cough or phlegm production - Gastrointestinal Comments: Ileus with no bowel movement - Integumentary/Breasts Skin/Breast: Reports dry skin - Neurologic Reports weakness Exam Vital signs: Temp Pulse Resp BP Pulse Ox O2 Del Method 36.7 C 98 16 130/86 97 Room Air 08/12/24 08:00 08/12/24 08:00 08/12/24 08:00 08/12/24 08:20 08/12/24 08:00 08/11/24 20:15 - Constitutional moderate distress - Routine HEENT Exam Head: Present: atraumatic Eye: Present: EOMI, normal appearance - Routine Respiratory Exam Present: CTAB - Routine Cardiovascular Exam Cardiovascular: Present: RRR, S1 - Routine Abdominal Exam Present: distended, firm, guarding - Routine Skin Exam Present: dry PN: Objective Data - Labs CBC & Chem 7: 08/12/24 05:27 08/12/24 05:27 Labs: Laboratory Results - last 24 hr 08/11/24 08/11/24 08/11/24 17:34 20:23 23:37 WBC RBC Hgb Hct MCV MCH MCHC RDW Plt Count MPV Immature Gran % (Auto) Neut % (Auto) Lymph % (Auto) [place] % (Auto) Eos % (Auto) Baso % (Auto) Lymph # (Auto) [place] # (Auto) Eos # (Auto) Baso # (Auto) Abs Immat Gran (auto) Absolute Neuts (auto) Absolute Nucleated RBC Nucleated RBC % Sodium Potassium Chloride Carbon Dioxide Anion Gap BUN Creatinine Estim Creat Clear Calc Estimated GFR Glucose POC Capillary Glucose 194 H 181 H 193 H Calcium Magnesium Total Bilirubin AST ALT Alkaline Phosphatase Total Protein Albumin 08/12/24 08/12/24 05:27 05:52 WBC 15.0 H RBC 4.30 L Hgb 13.9 L Hct 41.5 L MCV 96.5 MCH 32.3 MCHC 33.5 RDW 13.4 Plt Count 442 H MPV 9.0 Immature Gran % (Auto) 1.1 H Neut % (Auto) 81.4 H Lymph % (Auto) 9.1 L [place] % (Auto) 8.1 Eos % (Auto) 0.1 Baso % (Auto) 0.2 Lymph # (Auto) 1.36 [place] # (Auto) 1.2 H Eos # (Auto) 0.0 Baso # (Auto) 0.0 Abs Immat Gran (auto) 0.16 H Absolute Neuts (auto) 12.2 H Absolute Nucleated RBC 0.000 Nucleated RBC % 0.0 Sodium 140 Potassium 3.8 Chloride 102 Carbon Dioxide 29 Anion Gap 9 BUN 24 H Creatinine 0.80 Estim Creat Clear Calc 89 Estimated GFR > 60 Glucose 172 H POC Capillary Glucose 176 H Calcium 7.7 L Magnesium 2.0 Total Bilirubin 0.9 AST 41 ALT 25 Alkaline Phosphatase 79 Total Protein 7.0 Albumin 3.4 L
--- NOTE | 2024-08-12 12:39 | PC.NURSE ---
Pt alarm going off. Pt encouraged to sit down. Pt would not sit down. He said he asked for someone to bring his bedside tray to him. I told him I would gladly do that once he was sitting safely as his NG tube was still connected to the suction alarm & his IV line was stretching across the bed. Pt grunted at me & I called the nurse & let him know patient did not want me in his room.
[2024-08-12 13:26] LABS: Glucose Point of Care 179 mg/dl (65-105)
[2024-08-12 13:46] LABS: Transferrin 164 mg/dL (206-381)
[2024-08-12 13:57] LABS: Total Protein Peritoneal Fluid 4.4 g/dL
[2024-08-12] MEDS: CENTRAL LINE FLUSH 20 ML IV PUSH (14:00)
[2024-08-12] MEDS: FAT EMULSIONS IV 20% 250 ML 20.83 ML IVPB (14:00)
[2024-08-12] MEDS: MULTIVITAMINS IV CONT (14:01)
[2024-08-12] MEDS: CENTRAL LINE FLUSH 10 ML IV PUSH ×2 (14:01→21:15)
[2024-08-12] MEDS: [UNRECOGNIZED DRUG - OTHER] IV CONT (14:01)
[2024-08-12] MEDS: BISACODYL 10 MG SUPPOSITORY RECTAL (14:08)
[2024-08-12 14:11] LABS: Partial Thromboplastin Time 25.2 Seconds (22.3-36.8)
[2024-08-12] MEDS: INSULIN ASPART (*BKC) 100 UNITS/ML SUB-Q (17:12)
[2024-08-12 17:16] LABS: Glucose Point of Care 247 mg/dl (65-105)
[2024-08-12] MEDS: INSULIN GLARGINE (*BKC) 100 UNITS/ML 10 UNITS SUB-Q (20:04)
[2024-08-12 20:48] LABS: Glucose Point of Care 214 mg/dl (65-105)
--- NOTE | 2024-08-12 22:11 | PC.NURSE ---
[facility] called at approx. [phone] for updates. Told transfer center pt's last set of vitals from 1999 on 08/12, labs, and that pt was started on TPN and lipids via left upper arm PICC line today. Pt remains on RA and is still receiving maintenance fluids, NS @40, now via PICC line as well.
[2024-08-13] VITALS (9 sets, daily range): BP systolic 135–162; BP diastolic 9–93; PULSE 86–93; RESP 16–20; TEMP 36.4–36.8; O2SAT 94–96
[2024-08-13 00:07] LABS: Glucose Point of Care 264 mg/dl (65-105)
[2024-08-13] MEDS: SODIUM CHLORIDE 0.9% IV 1,000 ML 40 ML IV CONT (00:10)
[2024-08-13] MEDS: INSULIN ASPART (*BKC) 100 UNITS/ML SUB-Q ×4 (00:10→17:20)
[2024-08-13] MEDS: PIPERACILLN/TAZ 3.375GM/NS50ML 3.375 GM/50 ML BAG IVPB ×4 (00:11→17:19)
--- NOTE | 2024-08-13 01:11 | PC.NURSE ---
Daylight Savings Time For Daylight Savings Time Ending in the Fall - Clocks are moved back. For Daylight Savings Time Beginning in the Spring - Clocks are moved ahead. For [facility], the time of change occurs at 0200 hrs. Time is taken from the electrical prospecting observer. This entry on the patient's chart recognizes the change in time reflected during documentation. Example: 2 entries for vital signs may be charted for 0200 hrs.
[2024-08-13] MEDS: MORPHINE SULFATE (*CRX) 2 MG/ML INJ IV PUSH ×7 (01:28→22:32)
[2024-08-13] MEDS: CENTRAL LINE FLUSH 10 ML IV PUSH ×2 (05:19→13:34)
[2024-08-13] MEDS: CENTRAL LINE FLUSH 20 ML IV PUSH (05:19)
[2024-08-13 05:29] LABS: Basophils Percent Auto 0.3 % (0.2-1.2); Eosinophils Absolute Auto 0.1 K/mm3 (0-0.3); Eosinophils Percent Auto 0.3 % (0-4.4); Hematocrit 37.7 % (42.0-52.0); Hemoglobin 12.6 g/dL (14.0-18.0); Immature Granulocyte Absolute 0.11 K/mm3 (0.00-0.031); Immature Granulocyte Percent A 0.7 % (0-0.5); Lymphocytes Absolute Auto 1.34 K/mm3 (0.9-3.2); Lymphocytes Percent Auto 8.9 % (18.3-44.2); Mean Corpuscular HGB Conc 33.4 g/dl (32-36); Mean Corpuscular Hemoglobin 32.6 pg (26-34); Mean Corpuscular Volume 97.4 fl (80-100); Mean Platelet Volume 9.2 fl (7.4-10.4); Monocytes Absolute Auto 1.1 K/mm3 (0.1-0.6); Monocytes Percent Auto 7.3 % (2.6-8.5); Neutrophils Absolute Auto 12.5 K/mm3 (1.3-6.7); Neutrophils Percent Auto 82.5 % (45.5-73.1); Platelet Count Result 399 k/mm3 (150-375); Red Blood Count 3.87 M/mm3 (4.6-6.20); Red Cell Distribution Width 13.5 % (11.5-14.5); White Blood Count 15.1 K/mm3 (4.5-10.0)
[2024-08-13 05:40] LABS: Alanine Aminotransferase 25 U/L (6-50); Albumin Level 2.9 g/dL (3.5-5.1); Alkaline Phosphatase 69 U/L (38-126); Anion Gap 8 mmol/L (4-12); Aspartate Amino Transferase 37 U/L (17-59); Bilirubin,Total 0.8 mg/dL (0.2-1.3); Blood Urea Nitrogen 24 mg/dL (9-20); Calcium 7.4 mg/dL (8.4-10.2); Carbon Dioxide 30 mmol/L (22-30); Chloride 101 mmol/L (98-107); Estimated CRCL calculation 117 ml/min; Estimated Glomerular Filt Rate > 60; Glucose 229 mg/dL (65-110); Magnesium 1.9 mg/dL (1.6-2.3); Phosphorus 2.6 mg/dL (2.5-4.5); Potassium 3.5 mmol/L (3.4-5.0); Sodium 139 mmol/L (137-145); Triglycerides 168 mg/dL (<150)
[2024-08-13 05:47] LABS: Glucose Point of Care 246 mg/dl (65-105)
[2024-08-13] MEDS: FOLIC ACID 1 MG TABLET PO (09:16)
[2024-08-13] MEDS: THIAMINE HCL 100 MG TABLET PO (09:16)
[2024-08-13] MEDS: FINASTERIDE 5 MG TABLET PO (09:16)
[2024-08-13] MEDS: DOCUSATE SODIUM 100 MG CAPSULE PO ×2 (09:17→16:44)
--- NOTE | 2024-08-13 11:24 | P.PNONC_ITS ---
Progress Note: A/P (1) Abdominal carcinomatosis Code(s): C76.2 - Malignant neoplasm of abdomen Status: Acute - Additional Plan Patient with new diagnosis of peritoneal carcinomatosis on abdominal CT scan performed on 08/08/2024. A diagnostic paracentesis was performed on 08/08/2024 which showed metastatic carcinoma of GI primary. Patient has ileus at this time and has NG tube placed. Cancer enzymes performed shows normal CA 19-9 but high CEA. GI team is following the patient. We do recommend a diagnostic colonoscopy whenever the ileus is resolved. Patient has stage IV metastatic cancer and the prognosis is guarded. Any treatment rendered will be palliative in nature. Chemotherapy cannot be rendered via patient has active ileus. Patient is pending transfer to [facility] for surgical intervention. - Time Spent With Patient Total time spent is greater than 50% in coordination of care (as documented) at patient's floor/unit and/or counseling patient: Greater than 35 minutes (About 40 min were spent with this encounter.) Subjective Interval history: Patient seen at bedside today. NG in place, no BM. Ileus continues. Review of Systems - Constitutional Reports weakness, Reports weight gain - Eyes Comments: normal - ENT Comments: normal - Cardiovascular Comments: No chest pain, dyspnea, - Respiratory Comments: normal - Gastrointestinal Reports abdominal pain, Reports belching, Reports constipation Comments: Ileus with NG placed - Neurologic Reports weakness Exam - Constitutional moderate distress - Routine HEENT Exam Head: Present: atraumatic - Routine Respiratory Exam Present: CTAB - Routine Cardiovascular Exam Cardiovascular: Present: RRR, S1 - Routine Abdominal Exam Present: distended, firm, guarding - Routine Skin Exam Present: dry PN: Objective Data - Labs CBC & Chem 7: 08/13/24 05:13 08/13/24 05:13 Labs: Laboratory Results - last 24 hr 08/07/24 08/12/24 08/12/24 14:00 13:20 13:25 WBC RBC Hgb Hct MCV MCH MCHC RDW Plt Count MPV Immature Gran % (Auto) Neut % (Auto) Lymph % (Auto) [place] % (Auto) Eos % (Auto) Baso % (Auto) Lymph # (Auto) [place] # (Auto) Eos # (Auto) Baso # (Auto) Abs Immat Gran (auto) Absolute Neuts (auto) Absolute Nucleated RBC Nucleated RBC % APTT Sodium Potassium Chloride Carbon Dioxide Anion Gap BUN Creatinine Estim Creat Clear Calc Estimated GFR Glucose POC Capillary Glucose 179 H Calcium Phosphorus Magnesium Transferrin 164 L Total Bilirubin AST ALT Alkaline Phosphatase Total Protein Albumin Triglycerides Peritoneal Tot Protein 4.4 08/12/24 08/12/24 08/12/24 13:54 17:07 20:03 WBC RBC Hgb Hct MCV MCH MCHC RDW Plt Count MPV Immature Gran % (Auto) Neut % (Auto) Lymph % (Auto) [place] % (Auto) Eos % (Auto) Baso % (Auto) Lymph # (Auto) [place] # (Auto) Eos # (Auto) Baso # (Auto) Abs Immat Gran (auto) Absolute Neuts (auto) Absolute Nucleated RBC Nucleated RBC % APTT 25.2 Sodium Potassium Chloride Carbon Dioxide Anion Gap BUN Creatinine Estim Creat Clear Calc Estimated GFR Glucose POC Capillary Glucose 247 H 214 H Calcium Phosphorus Magnesium Transferrin Total Bilirubin AST ALT Alkaline Phosphatase Total Protein Albumin Triglycerides Peritoneal Tot Protein 08/12/24 08/13/24 08/13/24 23:59 05:13 05:29 WBC 15.1 H RBC 3.87 L Hgb 12.6 L Hct 37.7 L MCV 97.4 MCH 32.6 MCHC 33.4 RDW 13.5 Plt Count 399 H MPV 9.2 Immature Gran % (Auto) 0.7 H Neut % (Auto) 82.5 H Lymph % (Auto) 8.9 L [place] % (Auto) 7.3 Eos % (Auto) 0.3 Baso % (Auto) 0.3 Lymph # (Auto) 1.34 [place] # (Auto) 1.1 H Eos # (Auto) 0.1 Baso # (Auto) 0.0 Abs Immat Gran (auto) 0.11 H Absolute Neuts (auto) 12.5 H Absolute Nucleated RBC 0.000 Nucleated RBC % 0.0 APTT Sodium 139 Potassium 3.5 Chloride 101 Carbon Dioxide 30 Anion Gap 8 BUN 24 H Creatinine 0.60 L Estim Creat Clear Calc 117 Estimated GFR > 60 Glucose 229 H POC Capillary Glucose 264 H 246 H Calcium 7.4 L Phosphorus 2.6 Magnesium 1.9 Transferrin Total Bilirubin 0.8 AST 37 ALT 25 Alkaline Phosphatase 69 Total Protein 6.0 L Albumin 2.9 L Triglycerides 168 H Peritoneal Tot Protein
--- NOTE | 2024-08-13 11:49 | PM.IMPN ---
Progress Note: A&P Assessment and Plan (1) Ascites: Code(s): R18.8 - Other ascites Status: Acute (2) Abdominal pain: Code(s): R10.9 - Unspecified abdominal pain Status: Acute (3) Enteritis: Code(s): K52.9 - Noninfective gastroenteritis and colitis, unspecified Status: Acute (4) Diabetes mellitus: Code(s): E11.9 - Type 2 diabetes mellitus without complications Status: Acute (5) Alcohol abuse: Code(s): F10.10 - Alcohol abuse, uncomplicated Status: Acute (6) Hypertension: Code(s): I10 - Essential (primary) hypertension Status: Acute (7) Liver cirrhosis, alcoholic: Code(s): K70.30 - Alcoholic cirrhosis of liver without ascites Status: Acute (8) BPH (benign prostatic hyperplasia): Code(s): N40.0 - Benign prostatic hyperplasia without lower urinary tract symptoms Status: Acute (9) Hypothyroidism: Code(s): E03.9 - Hypothyroidism, unspecified Status: Acute Plan this is a 68-year-old male who presents with abdominal pain. Abdomen x-ray showing mildly dilated loops of small bowel. CT abdomen pelvis shows ascites with peritoneal noted laterally consistent with carcinomatosis, wall thickening of the distal Small bowel and liver cirrhosis. Paracentesis in the ER had bloody fluid and removal of 800 mL of dark reddish fluid.. peritoneal Cell count36 K WBC 2 K with 20 PMNs. Absolute PMNs 400. Two hundred fifty-six corrected for RBCs. Since more than 2:50 p.m. and cells treated as SBP with Rocephin. G stain showing WBCs but no organisms. Blood culture no growth. Right upper quadrant ultrasound with cirrhosis. 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 CEA elevated. CA 19 9 normal. GI has been consulted. GI consulted with recommended diagnostic laparoscopy. General surgery was consulted. however deferred laparoscopic evaluation. Await GI workup may need colonoscopy evaluation however due to current ileus this is not feasible. Undergoing PET-CT is an option however this is not done as an inpatient here. Oncology consulted. CT chest for staging performed which did not show any other metastatic lesions. Status post therapeutic paracentesis with removal of 4.4 L 08/11/2024. NG tube placement for ileus. Still ongoing with large NG output. Received Dulcolax suppository x1 08/12/2024. Will repeat x-ray today. [facility] has accepted the patient for further treatment as well Awaiting bed Availability. AFP stay, CEA, CA [address] scan showing thickening of distal small bowel. IV Zosyn leukocytosis improving Diabetes mellitus A1c 9. On Lantus and NovoLog Alcohol abuse on CIWA protocol Librium and Ativan as needed Hypertension Liver cirrhosis due to alcohol BPH Hypothyroidism DVT prophylaxis SCDs Code status full code Subjective Date/time seen: 08/13/24 11:49 Interval history: No overnight events. No bowel movement. NG output 2.1 L. labs reviewed. Abdominal discomfort reported. Review of Systems Review of Systems: All systems reviewed & are unremarkable except as noted in HPI and below Exam Narrative: GENERAL: Pleasant, in no acute distress. Well-nourished. - EYES: EOMI. Anicteric. - HENT: Moist mucous membranes. NG tube in situ with bilious drainage in the canister - LUNGS: Clear to auscultation bilaterally, no wheezing, rhonchi, or rales. - CARDIOVASCULAR: Regular rate and rhythm. No murmur. No JVD. - ABDOMEN: Soft, lower abdominal tender and severely distended. No palpable masses. - EXTREMITIES: No edema. Peripheral pulses 2+. Non-tender. - NEUROLOGIC: No focal neurological deficits. CN II-XII grossly intact. - PSYCHIATRIC: Awake, Alert and oriented x 3. Appropriate mood and affect. - SKIN: No rashes or lesions. Warm. Objective Data Vital Signs Vital Signs: Vital Signs - 24 hr 08/12/24 16:00 08/12/24 16:00 08/12/24 20:00 Temperature 96.9 F L 98.3 F Pulse Rate 94 93 Respiratory Rate 18 18 Blood Pressure 150/99 H 166/108 H 146/97 H Pulse Oximetry 98 95 Oxygen Delivery 08/13/24 00:00 08/12/24 20:00 08/13/24 04:00 Temperature 98.2 F 98.1 F Pulse Rate 90 88 Respiratory Rate 18 18 Blood Pressure 152/89 H 162/90 H Pulse Oximetry 95 95 Oxygen Delivery Room Air 08/13/24 06:35 08/13/24 09:17 08/13/24 09:17 Temperature 98.1 F Pulse Rate 87 Respiratory Rate 18 Blood Pressure 162/90 H 162/90 H Pulse Oximetry 96 Oxygen Delivery Room Air 08/13/24 10:00 Temperature 97.5 F L Pulse Rate 86 Respiratory Rate 20 Blood Pressure 157/93 H Pulse Oximetry 95 Oxygen Delivery Intake/Output Intake/Output: Intake & Output 08/10/24 08/11/24 08/12/24 08/13/24 23:59 23:59 23:59 22:59 Intake Total 571 1150 1320 350 Output Total 200 8300 2700 500 Balance 596 -7150 -1380 -150 Meds/Results Medications: Active Medications Generic Name Dose Route Start Last Admin Trade Name Freq PRN Reason Stop Dose Admin Acetaminophen 650 mg 08/07/24 17:40 Acetaminophen 325 Mg Tablet PO Q4H PRN Mild Pain (1-3) or Fever Hydrocodone Bitart/Acetaminophen 1 tab 08/07/24 15:49 08/10/24 12:46 Hydrocodone/Acetaminophen (*Crx) 5-325 Mg Tablet PO 1 tab Q4H PRN Administration Pain Rated 4-6 Chlordiazepoxide HCl 25 mg 08/08/24 12:53 Chlordiazepoxide (*Crx) 25 Mg Capsule PO Q6H PRN Withdrawal CIWA 8-15 Dextrose 12.5 gm 08/07/24 22:17 Dextrose 50% 25 Gm/50 Ml Syringe IV PUSH PRN PRN Hypoglycemia Protocol Docusate Sodium 100 mg 08/08/24 09:00 08/13/24 09:17 Docusate Sodium 100 Mg Capsule PO 100 mg BID MEGGAN Administration Finasteride 5 mg 08/08/24 09:00 08/13/24 09:16 Finasteride 5 Mg Tablet PO 5 mg DAILY MEGGAN Administration Folic Acid 1 mg 08/08/24 09:00 08/13/24 09:16 Folic Acid 1 Mg Tablet PO 1 mg DAILY MEGGAN Administration Glucagon 1 mg 08/07/24 22:17 Glucagon For Inj 1 Mg Vial IM PRN PRN Hypoglycemia Protocol Glucose 15 gm 08/07/24 22:17 Glucose Oral Gel 15 Gm Of Glucse In 37.5 Gm Tube PO PRN PRN Hypoglycemia Protocol Dextrose 1,000 mls @ 100 mls/hr 08/07/24 22:17 Dextrose 5% 1,000 Ml IVPB PRN PRN Hypoglycemia Protocol Piperacillin/Tazobactam/Dextrose 3.375 gm in 50 mls @ 100 mls/hr 08/09/24 11:00 08/13/24 05:49 Zosyn 3.375 Gm/Ns 50 Ml IVPB Infused Q6HR MEGGAN Infusion Sodium Chloride 1,000 mls @ 40 mls/hr 08/10/24 16:30 08/13/24 00:10 Normal Saline Iv IV CONT 40 mls/hr .Q24H MEGGAN Administration Dextrose 1,000 mls @ 50 mls/hr 08/12/24 11:57 Dextrose 10% IV CONT .Q20H PRN if PN is interrupted Multivitamins 1.25 ml/ 1,002.5 mls @ 40 mls/hr 08/12/24 13:00 08/12/24 14:01 Multivitamins 1.25 ml/ Amino IV CONT 40 mls/hr Acids/Electrolytes/Dextrose .Q24H MEGGAN Administration Protocol Fat Emulsion Intravenous 250 mls @ 20.833 mls/hr 08/12/24 12:00 08/13/24 01:01 [employer] Lipids 20% IVPB Infused Q24H MEGGAN Infusion Insulin Aspart 3 - 6 units 08/10/24 18:00 08/13/24 05:30 Insulin Aspart (*Bkc) 100 Units/Ml SUB-Q 3 units Q6H MEGGAN Administration Protocol Insulin Glargine 10 units 08/08/24 21:00 08/12/24 20:04 Insulin Glargine (*Bkc) 100 Units/Ml SUB-Q 10 units HS MEGGAN Administration Levothyroxine Sodium 25 mcg 08/08/24 06:30 08/13/24 06:26 Levothyroxine Sodium 25 Mcg Tablet PO Not Given DAILY@0630 [facility] Lorazepam 2 mg 08/08/24 07:42 08/08/24 20:35 Lorazepam Inj (*Crx) 2 Mg/Ml Vial IV PUSH 2 mg Q4H PRN Administration CIWA >15 Morphine Sulfate 2 mg 08/11/24 17:56 08/13/24 09:23 Morphine Sulfate (*Crx) 2 Mg/Ml Inj IV PUSH 2 mg Q2H PRN Administration Pain Rated 7-10 Ondansetron HCl 4 mg 08/07/24 15:49 08/11/24 06:41 Ondansetron Inj 4 Mg/2 Ml Vial IV PUSH 4 mg Q4H PRN Administration Nausea Sodium Chloride 10 ml 08/12/24 14:00 08/13/24 05:19 Central Line Flush IV PUSH 10 ml Q8HR MEGGAN Administration Sodium Chloride 10 ml 08/12/24 13:02 Central Line Flush IV PUSH PRN PRN with TPN bag changes Sodium Chloride 20 ml 08/12/24 13:02 08/13/24 05:19 Central Line Flush IV PUSH 20 ml PRN PRN Administration after blood draws Thiamine HCl 100 mg 08/08/24 09:00 08/13/24 09:16 Thiamine Hcl 100 Mg Tablet PO 100 mg QAM MEGGAN Administration Radiology Results: ITS Impressions Upper Quadrant Ultrasound 08/08/24 20:04 IMPRESSION: Cirrhosis. Abdomen X-Ray 08/09/24 08:36 IMPRESSION: 1. Dilated small bowel, likely adynamic ileus. NG Tube Placement 08/10/24 15:41 IMPRESSION: 1. Successful fluoroscopic guided placement of a nasogastric tube which is in expected position with distal tip and proximal side port in the body of the stomach. Chest CT 08/11/24 10:56 IMPRESSION: 1. Peritoneal carcinomatosis. Moderate volume of ascites. 2. Cirrhosis of the liver. Paracentesis Ultrasound 08/11/24 12:36 IMPRESSION: 1. Successful ultrasound-guided paracentesis yielding 4400 mL of reddish fluid. Abdomen/Pelvis CT 08/11/24 17:17 IMPRESSION: 1. Ascites seen in the pelvis, around the liver, right paracolic gutter and around the spleen. Possibility of subcapsular hematoma around the liver cannot be excluded. 2. Liver cirrhosis. 3. Fat stranding in the mesentery which may indicate inflammatory changes or edema. 4. Thickened wall of the small bowel in the area of the pelvis which may indicate enteritis. No air is seen in the wall. Ischemia cannot be excluded. This thickening is slightly more prominent than the previous study. Chest X-Ray 08/12/24 12:50 IMPRESSION: 1. Left PICC line tip at the midsuperior vena cava. 2. Elevation of the right hemidiaphragm with right basilar atelectasis, new since 07/30/2024 but seen on intervening CT from one day prior. Labs Labs: Laboratory Results - last 24 hr 08/07/24 08/12/24 08/12/24 14:00 13:20 13:25 WBC RBC Hgb Hct MCV MCH MCHC RDW Plt Count MPV Immature Gran % (Auto) Neut % (Auto) Lymph % (Auto) [place] % (Auto) Eos % (Auto) Baso % (Auto) Lymph # (Auto) [place] # (Auto) Eos # (Auto) Baso # (Auto) Abs Immat Gran (auto) Absolute Neuts (auto) Absolute Nucleated RBC Nucleated RBC % APTT Sodium Potassium Chloride Carbon Dioxide Anion Gap BUN Creatinine Estim Creat Clear Calc Estimated GFR Glucose POC Capillary Glucose 179 H Calcium Phosphorus Magnesium Transferrin 164 L Total Bilirubin AST ALT Alkaline Phosphatase Total Protein Albumin Triglycerides Peritoneal Tot Protein 4.4 08/12/24 08/12/24 08/12/24 13:54 17:07 20:03 WBC RBC Hgb Hct MCV MCH MCHC RDW Plt Count MPV Immature Gran % (Auto) Neut % (Auto) Lymph % (Auto) [place] % (Auto) Eos % (Auto) Baso % (Auto) Lymph # (Auto) [place] # (Auto) Eos # (Auto) Baso # (Auto) Abs Immat Gran (auto) Absolute Neuts (auto) Absolute Nucleated RBC Nucleated RBC % APTT 25.2 Sodium Potassium Chloride Carbon Dioxide Anion Gap BUN Creatinine Estim Creat Clear Calc Estimated GFR Glucose POC Capillary Glucose 247 H 214 H Calcium Phosphorus Magnesium Transferrin Total Bilirubin AST ALT Alkaline Phosphatase Total Protein Albumin Triglycerides Peritoneal Tot Protein 08/12/24 08/13/24 08/13/24 23:59 05:13 05:29 WBC 15.1 H RBC 3.87 L Hgb 12.6 L Hct 37.7 L MCV 97.4 MCH 32.6 MCHC 33.4 RDW 13.5 Plt Count 399 H MPV 9.2 Immature Gran % (Auto) 0.7 H Neut % (Auto) 82.5 H Lymph % (Auto) 8.9 L [place] % (Auto) 7.3 Eos % (Auto) 0.3 Baso % (Auto) 0.3 Lymph # (Auto) 1.34 [place] # (Auto) 1.1 H Eos # (Auto) 0.1 Baso # (Auto) 0.0 Abs Immat Gran (auto) 0.11 H Absolute Neuts (auto) 12.5 H Absolute Nucleated RBC 0.000 Nucleated RBC % 0.0 APTT Sodium 139 Potassium 3.5 Chloride 101 Carbon Dioxide 30 Anion Gap 8 BUN 24 H Creatinine 0.60 L Estim Creat Clear Calc 117 Estimated GFR > 60 Glucose 229 H POC Capillary Glucose 264 H 246 H Calcium 7.4 L Phosphorus 2.6 Magnesium 1.9 Transferrin Total Bilirubin 0.8 AST 37 ALT 25 Alkaline Phosphatase 69 Total Protein 6.0 L Albumin 2.9 L Triglycerides 168 H Peritoneal Tot Protein
[2024-08-13 12:10] LABS: Glucose Point of Care 273 mg/dl (65-105)
[2024-08-13] MEDS: [UNRECOGNIZED DRUG - OTHER] IV CONT (12:51)
[2024-08-13] MEDS: MULTIVITAMINS IV CONT (12:51)
[2024-08-13] MEDS: FAT EMULSIONS IV 20% 250 ML 20 ML IVPB (12:56)
--- NOTE | 2024-08-13 14:30 | P.PNGI_ITS ---
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 Status: Acute Assessment and Plan: prognosis is guarded, + cytology in ascitic fluid oncology on board can not do colonoscopy because + ileus, he says that last one about 8 years ago plan to transfer to [facility] (2) Ascites: Code(s): R18.8 - Other ascites Status: Acute Assessment and Plan: paracentesis x2 may need to drain more if more symptomatic peritoneal carcinomatosis (3) Cirrhosis: Code(s): K74.60 - Unspecified cirrhosis of liver Status: Acute (4) Ileus: Code(s): K56.7 - Ileus, unspecified Status: Acute Assessment and Plan: still no BM NGT in place on TPN Subjective Date/time seen: 08/13/24 14:30 Interval history: no changes, similar pain, NGT in place not passing gas on TPN Review of Systems Review of Systems: All systems reviewed & are unremarkable except as noted in HPI and below Exam Const: General: no acute distress Other: feeling sick HENMT: Other: NGT in place with dark gastric content Eyes: General: appearance normal, both eyes and all related structures Neck: Neck: supple Resp: Auscultation: clear to auscultation bilaterally Cardio: Rate: regular rate Rhythm: regular rhythm GI: Inspection: distended GI Palp: Yes Tenderness to palpation present (GI) (diffusely, no rebound) Other: hypoactive BS Skin: General skin exam: normal color Neuro: Speech: normal speech Motor exam (neuro): 5/5 motor strength present throughout Extrem: General: normal to inspection Psych: Attitude: not belligerent Objective Data Vital Signs Vital Signs: Vital Signs - 24 hr 08/12/24 16:00 08/12/24 16:00 08/12/24 20:00 Temperature 96.9 F L 98.3 F Pulse Rate 94 93 Respiratory Rate 18 18 Blood Pressure 150/99 H 166/108 H 146/97 H Pulse Oximetry 98 95 Oxygen Delivery 08/13/24 00:00 08/12/24 20:00 08/13/24 04:00 Temperature 98.2 F 98.1 F Pulse Rate 90 88 Respiratory Rate 18 18 Blood Pressure 152/89 H 162/90 H Pulse Oximetry 95 95 Oxygen Delivery Room Air 08/13/24 06:35 08/13/24 09:17 08/13/24 09:17 Temperature 98.1 F Pulse Rate 87 Respiratory Rate 18 Blood Pressure 162/90 H 162/90 H Pulse Oximetry 96 Oxygen Delivery Room Air 08/13/24 10:00 08/13/24 12:00 Temperature 97.5 F L Pulse Rate 86 Respiratory Rate 20 Blood Pressure 157/93 H 157/93 H Pulse Oximetry 95 Oxygen Delivery Intake/Output Intake/Output: Intake & Output 08/10/24 08/11/24 08/12/24 08/13/24 23:59 23:59 23:59 22:59 Intake Total 571 1150 1320 1303.3 Output Total 200 8300 2700 500 Balance 371 -1386 -1380 803.3 Meds/Results Medications: Active Medications Generic Name Dose Route Start Last Admin Trade Name Freq PRN Reason Stop Dose Admin Acetaminophen 650 mg 08/07/24 17:40 Acetaminophen 325 Mg Tablet PO Q4H PRN Mild Pain (1-3) or Fever Hydrocodone Bitart/Acetaminophen 1 tab 08/07/24 15:49 08/10/24 12:46 Hydrocodone/Acetaminophen (*Crx) 5-325 Mg Tablet PO 1 tab Q4H PRN Administration Pain Rated 4-6 Chlordiazepoxide HCl 25 mg 08/08/24 12:53 Chlordiazepoxide (*Crx) 25 Mg Capsule PO Q6H PRN Withdrawal CIWA 8-15 Dextrose 12.5 gm 08/07/24 22:17 Dextrose 50% 25 Gm/50 Ml Syringe IV PUSH PRN PRN Hypoglycemia Protocol Docusate Sodium 100 mg 08/08/24 09:00 08/13/24 09:17 Docusate Sodium 100 Mg Capsule PO 100 mg BID MEGGAN Administration Finasteride 5 mg 08/08/24 09:00 08/13/24 09:16 Finasteride 5 Mg Tablet PO 5 mg DAILY MEGGAN Administration Folic Acid 1 mg 08/08/24 09:00 08/13/24 09:16 Folic Acid 1 Mg Tablet PO 1 mg DAILY MEGGAN Administration Glucagon 1 mg 08/07/24 22:17 Glucagon For Inj 1 Mg Vial IM PRN PRN Hypoglycemia Protocol Glucose 15 gm 08/07/24 22:17 Glucose Oral Gel 15 Gm Of Glucse In 37.5 Gm Tube PO PRN PRN Hypoglycemia Protocol Dextrose 1,000 mls @ 100 mls/hr 08/07/24 22:17 Dextrose 5% 1,000 Ml IVPB PRN PRN Hypoglycemia Protocol Piperacillin/Tazobactam/Dextrose 3.375 gm in 50 mls @ 100 mls/hr 08/09/24 11:00 08/13/24 12:50 Zosyn 3.375 Gm/Ns 50 Ml IVPB 100 mls/hr Q6HR MEGGAN Administration Sodium Chloride 1,000 mls @ 40 mls/hr 08/10/24 16:30 08/13/24 00:10 Normal Saline Iv IV CONT 40 mls/hr .Q24H MEGGAN Administration Dextrose 1,000 mls @ 50 mls/hr 08/12/24 11:57 Dextrose 10% IV CONT .Q20H PRN if PN is interrupted Multivitamins 1.25 ml/ 1,002.5 mls @ 40 mls/hr 08/12/24 13:00 08/13/24 12:51 Multivitamins 1.25 ml/ Amino IV CONT 40 mls/hr Acids/Electrolytes/Dextrose .Q24H MEGGAN Administration Protocol Fat Emulsion Intravenous 250 mls @ 20.833 mls/hr 08/12/24 12:00 08/13/24 12:56 Lipids 20% IVPB 20 mls/hr Q24H MEGGAN Administration Insulin Aspart 3 - 6 units 08/10/24 18:00 08/13/24 12:44 Insulin Aspart (*Bkc) 100 Units/Ml SUB-Q 4 units Q6H MEGGAN Administration Protocol Insulin Glargine 10 units 08/08/24 21:00 08/12/24 20:04 Insulin Glargine (*Bkc) 100 Units/Ml SUB-Q 10 units HS MEGGAN Administration Levothyroxine Sodium 25 mcg 08/08/24 06:30 08/13/24 06:26 Levothyroxine Sodium 25 Mcg Tablet PO Not Given DAILY@0630 MEGGAN Lorazepam 2 mg 08/08/24 07:42 08/08/24 20:35 Lorazepam Inj (*Crx) 2 Mg/Ml Vial IV PUSH 2 mg Q4H PRN Administration CIWA >15 Miscellaneous Information 1 each 08/13/24 00:01 Clinamix Needs To Be Renewed Or It Will Automatically Discontinue. XX 09/12/24 00:00 CLARIFY MEGGAN Morphine Sulfate 2 mg 08/11/24 17:56 08/13/24 13:34 Morphine Sulfate (*Crx) 2 Mg/Ml Inj IV PUSH 2 mg Q2H PRN Administration Pain Rated 7-10 Ondansetron HCl 4 mg 08/07/24 15:49 08/11/24 06:41 Ondansetron Inj 4 Mg/2 Ml Vial IV PUSH 4 mg Q4H PRN Administration Nausea Sodium Chloride 10 ml 08/12/24 14:00 08/13/24 13:34 Central Line Flush IV PUSH 10 ml Q8HR MEGGAN Administration Sodium Chloride 10 ml 08/12/24 13:02 Central Line Flush IV PUSH PRN PRN with TPN bag changes Sodium Chloride 20 ml 08/12/24 13:02 08/13/24 05:19 Central Line Flush IV PUSH 20 ml PRN PRN Administration after blood draws Thiamine HCl 100 mg 08/08/24 09:00 08/13/24 09:16 Thiamine Hcl 100 Mg Tablet PO 100 mg QAM MEGGAN Administration Radiology Results: ITS Impressions Upper Quadrant Ultrasound 08/08/24 20:04 IMPRESSION: Cirrhosis. NG Tube Placement 08/10/24 15:41 IMPRESSION: 1. Successful fluoroscopic guided placement of a nasogastric tube which is in expected position with distal tip and proximal side port in the body of the stomach. Chest CT 08/11/24 10:56 IMPRESSION: 1. Peritoneal carcinomatosis. Moderate volume of ascites. 2. Cirrhosis of the liver. Paracentesis Ultrasound 08/11/24 12:36 IMPRESSION: 1. Successful ultrasound-guided paracentesis yielding 4400 mL of reddish fluid. Abdomen/Pelvis CT 08/11/24 17:17 IMPRESSION: 1. Ascites seen in the pelvis, around the liver, right paracolic gutter and around the spleen. Possibility of subcapsular hematoma around the liver cannot be excluded. 2. Liver cirrhosis. 3. Fat stranding in the mesentery which may indicate inflammatory changes or edema. 4. Thickened wall of the small bowel in the area of the pelvis which may indicate enteritis. No air is seen in the wall. Ischemia cannot be excluded. This thickening is slightly more prominent than the previous study. Chest X-Ray 08/12/24 12:50 IMPRESSION: 1. Left PICC line tip at the midsuperior vena cava. 2. Elevation of the right hemidiaphragm with right basilar atelectasis, new since 07/30/2024 but seen on intervening CT from one day prior. Labs Labs: Laboratory Results - last 24 hr 08/12/24 08/12/24 08/12/24 17:07 20:03 23:59 WBC RBC Hgb Hct MCV MCH MCHC RDW Plt Count MPV Immature Gran % (Auto) Neut % (Auto) Lymph % (Auto) [place] % (Auto) Eos % (Auto) Baso % (Auto) Lymph # (Auto) [place] # (Auto) Eos # (Auto) Baso # (Auto) Abs Immat Gran (auto) Absolute Neuts (auto) Absolute Nucleated RBC Nucleated RBC % Sodium Potassium Chloride Carbon Dioxide Anion Gap BUN Creatinine Estim Creat Clear Calc Estimated GFR Glucose POC Capillary Glucose 247 H 214 H 264 H Calcium Phosphorus Magnesium Total Bilirubin AST ALT Alkaline Phosphatase Total Protein Albumin Triglycerides 08/13/24 08/13/24 08/13/24 05:13 05:29 12:03 WBC 15.1 H RBC 3.87 L Hgb 12.6 L Hct 37.7 L MCV 97.4 MCH 32.6 MCHC 33.4 RDW 13.5 Plt Count 399 H MPV 9.2 Immature Gran % (Auto) 0.7 H Neut % (Auto) 82.5 H Lymph % (Auto) 8.9 L [place] % (Auto) 7.3 Eos % (Auto) 0.3 Baso % (Auto) 0.3 Lymph # (Auto) 1.34 [place] # (Auto) 1.1 H Eos # (Auto) 0.1 Baso # (Auto) 0.0 Abs Immat Gran (auto) 0.11 H Absolute Neuts (auto) 12.5 H Absolute Nucleated RBC 0.000 Nucleated RBC % 0.0 Sodium 139 Potassium 3.5 Chloride 101 Carbon Dioxide 30 Anion Gap 8 BUN 24 H Creatinine 0.60 L Estim Creat Clear Calc 117 Estimated GFR > 60 Glucose 229 H POC Capillary Glucose 246 H 273 H Calcium 7.4 L Phosphorus 2.6 Magnesium 1.9 Total Bilirubin 0.8 AST 37 ALT 25 Alkaline Phosphatase 69 Total Protein 6.0 L Albumin 2.9 L Triglycerides 168 H
[2024-08-13 17:11] LABS: Glucose Point of Care 251 mg/dl (65-105)
[2024-08-13] MEDS: INSULIN GLARGINE (*BKC) 100 UNITS/ML 10 UNITS SUB-Q (20:23)
[2024-08-13] MEDS: ONDANSETRON INJ 4 MG/2 ML VIAL IV PUSH (20:27)
[2024-08-13 21:16] LABS: Glucose Point of Care 228 mg/dl (65-105)
[2024-08-14] MEDS: CENTRAL LINE FLUSH 10 ML IV PUSH ×4 (00:07→20:53)
[2024-08-14] MEDS: SODIUM CHLORIDE 0.9% IV 1,000 ML 40 ML IV CONT ×2 (00:07→17:53)
[2024-08-14] MEDS: PIPERACILLN/TAZ 3.375GM/NS50ML 3.375 GM/50 ML BAG IVPB ×3 (00:07→17:42)
[2024-08-14] MEDS: MORPHINE SULFATE (*CRX) 2 MG/ML INJ IV PUSH ×8 (00:08→20:56)
[2024-08-14] MEDS: INSULIN ASPART (*BKC) 100 UNITS/ML SUB-Q ×4 (00:13→18:02)
[2024-08-14 00:20] VITALS: BP 147/98; PULSE 86; RESP 16; TEMP 36.4; O2SAT 96
[2024-08-14 00:51] LABS: Glucose Point of Care 262 mg/dl (65-105)
--- NOTE | 2024-08-14 03:59 | PC.NURSE ---
talked with patient about the amount of ice chips he is taking in. He is not happy with being limited, states he is just rinsing his mouth , but this nurse watched him chew and swallow many times this shift. Patient asked for more, advised that we will slow down some on the ice and explained why.
[2024-08-14 04:01] VITALS: BP 129/83; PULSE 93; RESP 14; TEMP 36.4; O2SAT 95
[2024-08-14 06:10] LABS: Glucose Point of Care 269 mg/dl (65-105)
[2024-08-14 06:19] LABS: Basophils Absolute Auto 0.1 K/mm3 (0.0-0.1); Basophils Percent Auto 0.5 % (0.2-1.2); Eosinophils Absolute Auto 0.1 K/mm3 (0-0.3); Eosinophils Percent Auto 0.9 % (0-4.4); Hemoglobin 11.8 g/dL (14.0-18.0); Immature Granulocyte Absolute 0.09 K/mm3 (0.00-0.031); Immature Granulocyte Percent A 0.7 % (0-0.5); Lymphocytes Absolute Auto 0.93 K/mm3 (0.9-3.2); Lymphocytes Percent Auto 7.4 % (18.3-44.2); Mean Corpuscular HGB Conc 32.8 g/dl (32-36); Mean Corpuscular Hemoglobin 32.2 pg (26-34); Mean Corpuscular Volume 98.4 fl (80-100); Mean Platelet Volume 9.2 fl (7.4-10.4); Monocytes Percent Auto 7.5 % (2.6-8.5); Neutrophils Absolute Auto 10.5 K/mm3 (1.3-6.7); Platelet Count Result 333 k/mm3 (150-375); Red Blood Count 3.66 M/mm3 (4.6-6.20); White Blood Count 12.6 K/mm3 (4.5-10.0)
[2024-08-14 06:30] LABS: Alanine Aminotransferase 24 U/L (6-50); Albumin Level 2.7 g/dL (3.5-5.1); Alkaline Phosphatase 64 U/L (38-126); Anion Gap 6 mmol/L (4-12); Aspartate Amino Transferase 38 U/L (17-59); Bilirubin,Total 0.7 mg/dL (0.2-1.3); Blood Urea Nitrogen 19 mg/dL (9-20); Calcium 7.6 mg/dL (8.4-10.2); Carbon Dioxide 32 mmol/L (22-30); Chloride 101 mmol/L (98-107); Estimated CRCL calculation 113 ml/min; Estimated Glomerular Filt Rate > 60; Glucose 237 mg/dL (65-110); Magnesium 1.7 mg/dL (1.6-2.3); Phosphorus 3.5 mg/dL (2.5-4.5); Potassium 3.2 mmol/L (3.4-5.0); Sodium 139 mmol/L (137-145)
[2024-08-14 06:36] LABS: Transferrin 140 mg/dL (206-381)
[2024-08-14 06:37] LABS: INR 1.4; Partial Thromboplastin Time 29.6 Seconds (22.3-36.8); Prothrombin Time 17.8 Seconds (11.1-14.7)
[2024-08-14] MEDS: KCL 40 MEQ/WATER 100 ML 100 ML 25 ML IVPB (09:45)
[2024-08-14 10:00] VITALS: BP 131/81; PULSE 88; RESP 18; TEMP 35.9; O2SAT 96
[2024-08-14 11:46] LABS: Glucose Point of Care 227 mg/dl (65-105)
--- NOTE | 2024-08-14 11:47 | PM.IMPN ---
Progress Note: A&P Assessment and Plan (1) Ascites: Code(s): R18.8 - Other ascites Status: Acute (2) Abdominal pain: Code(s): R10.9 - Unspecified abdominal pain Status: Acute (3) Enteritis: Code(s): K52.9 - Noninfective gastroenteritis and colitis, unspecified Status: Acute (4) Diabetes mellitus: Code(s): E11.9 - Type 2 diabetes mellitus without complications Status: Acute (5) Alcohol abuse: Code(s): F10.10 - Alcohol abuse, uncomplicated Status: Acute (6) Hypertension: Code(s): I10 - Essential (primary) hypertension Status: Acute (7) Liver cirrhosis, alcoholic: Code(s): K70.30 - Alcoholic cirrhosis of liver without ascites Status: Acute (8) BPH (benign prostatic hyperplasia): Code(s): N40.0 - Benign prostatic hyperplasia without lower urinary tract symptoms Status: Acute (9) Hypothyroidism: Code(s): E03.9 - Hypothyroidism, unspecified Status: Acute Plan this is a 68-year-old male who presents with abdominal pain. Abdomen x-ray showing mildly dilated loops of small bowel. CT abdomen pelvis shows ascites with peritoneal noted laterally consistent with carcinomatosis, wall thickening of the distal Small bowel and liver cirrhosis. Paracentesis in the ER had bloody fluid and removal of 800 mL of dark reddish fluid.. peritoneal Cell count36 K WBC 2 K with 20 PMNs. Absolute PMNs 400. Two hundred fifty-six corrected for RBCs. Since more than 2:50 p.m. and cells treated as SBP with Rocephin. G stain showing WBCs but no organisms. Blood culture no growth. Right upper quadrant ultrasound with cirrhosis. 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 CEA elevated. CA 19 9 normal. GI has been consulted. GI consulted with recommended diagnostic laparoscopy. General surgery was consulted. however deferred laparoscopic evaluation. Await GI workup may need colonoscopy evaluation however due to current ileus this is not feasible. Undergoing PET-CT is an option however this is not done as an inpatient here. Oncology consulted. CT chest for staging performed which did not show any other metastatic lesions. Status post therapeutic paracentesis with removal of 4.4 L 08/11/2024. NG tube placement for ileus. Still ongoing with large NG output. Received Dulcolax suppository x1 08/12/2024. Repeat x-ray with possible small-bowel obstruction. Will re-consult General surgery. Continue bowel rest NG decompression and IV analgesics Currently on IV nutrition TPN [facility] has accepted the patient for further treatment as well Awaiting bed Availability. AFP pending, CEA elevated, CA [address] scan showing thickening of distal small bowel. IV Zosyn leukocytosis improving Diabetes mellitus A1c 9. On Lantus and NovoLog Alcohol abuse on CIWA protocol Librium and Ativan as needed Hypertension Liver cirrhosis due to alcohol BPH Hypothyroidism DVT prophylaxis SCDs Code status full code Subjective Date/time seen: 08/14/24 11:47 Interval history: No overnight events. Past flat us this morning. Also little yesterday. Abdomen is distended feels bloated Review of Systems Review of Systems: All systems reviewed & are unremarkable except as noted in HPI and below Exam Narrative: GENERAL: Pleasant, in no acute distress. Well-nourished. - EYES: EOMI. Anicteric. - HENT: Moist mucous membranes. NG tube in situ with bilious drainage in the canister - LUNGS: Clear to auscultation bilaterally, no wheezing, rhonchi, or rales. - CARDIOVASCULAR: Regular rate and rhythm. No murmur. No JVD. - ABDOMEN: Soft, lower abdominal tender and severely distended. No palpable masses. - EXTREMITIES: No edema. Peripheral pulses 2+. Non-tender. - NEUROLOGIC: No focal neurological deficits. CN II-XII grossly intact. - PSYCHIATRIC: Awake, Alert and oriented x 3. Appropriate mood and affect. - SKIN: No rashes or lesions. Warm. Objective Data Vital Signs Vital Signs: Vital Signs - 24 hr 08/13/24 12:00 08/13/24 14:39 08/13/24 16:00 Temperature 98.0 F Pulse Rate 92 Respiratory Rate 16 Blood Pressure 157/93 H 135/84 148/84 H Pulse Oximetry 95 Oxygen Delivery 08/13/24 16:00 08/13/24 20:00 08/13/24 20:00 Temperature 97.9 F 98.0 F Pulse Rate 87 93 Respiratory Rate 20 18 Blood Pressure 151/9 H 153/92 H Pulse Oximetry 96 94 Oxygen Delivery Room Air 08/14/24 00:20 08/14/24 04:01 08/14/24 09:43 Temperature 97.6 F 97.5 F L Pulse Rate 86 93 Respiratory Rate 16 14 Blood Pressure 147/98 H 129/83 Pulse Oximetry 96 95 Oxygen Delivery Room Air 08/14/24 10:00 Temperature 96.7 F L Pulse Rate 88 Respiratory Rate 18 Blood Pressure 131/81 Pulse Oximetry 96 Oxygen Delivery Intake/Output Intake/Output: Intake & Output 08/12/24 08/13/24 08/13/24 08/14/24 00:59 00:59 23:59 23:59 Intake Total 1348 Output Total 1500 Balance -152 Meds/Results Medications: Active Medications Generic Name Dose Route Start Last Admin Trade Name Freq PRN Reason Stop Dose Admin Acetaminophen 650 mg 08/07/24 17:40 Acetaminophen 325 Mg Tablet PO Q4H PRN Mild Pain (1-3) or Fever Hydrocodone Bitart/Acetaminophen 1 tab 08/07/24 15:49 08/10/24 12:46 Hydrocodone/Acetaminophen (*Crx) 5-325 Mg Tablet PO 1 tab Q4H PRN Administration Pain Rated 4-6 Chlordiazepoxide HCl 25 mg 08/08/24 12:53 Chlordiazepoxide (*Crx) 25 Mg Capsule PO Q6H PRN Withdrawal CIWA 8-15 Dextrose 12.5 gm 08/07/24 22:17 Dextrose 50% 25 Gm/50 Ml Syringe IV PUSH PRN PRN Hypoglycemia Protocol Docusate Sodium 100 mg 08/08/24 09:00 08/13/24 16:44 Docusate Sodium 100 Mg Capsule PO 100 mg BID MEGGAN Administration Finasteride 5 mg 08/08/24 09:00 08/13/24 09:16 Finasteride 5 Mg Tablet PO 5 mg DAILY MEGGAN Administration Folic Acid 1 mg 08/08/24 09:00 08/13/24 09:16 Folic Acid 1 Mg Tablet PO 1 mg DAILY MEGGAN Administration Folic Acid 1 mg 08/14/24 11:45 Folic Acid 1 Mg/0.2 Ml Inj IV PUSH 08/14/24 11:46 ONCE ONE Folic Acid 1 mg 08/15/24 09:00 Folic Acid 1 Mg/0.2 Ml Inj IV PUSH QAM MEGGAN Glucagon 1 mg 08/07/24 22:17 Glucagon For Inj 1 Mg Vial IM PRN PRN Hypoglycemia Protocol Glucose 15 gm 08/07/24 22:17 Glucose Oral Gel 15 Gm Of Glucse In 37.5 Gm Tube PO PRN PRN Hypoglycemia Protocol Dextrose 1,000 mls @ 100 mls/hr 08/07/24 22:17 Dextrose 5% 1,000 Ml IVPB PRN PRN Hypoglycemia Protocol Piperacillin/Tazobactam/Dextrose 3.375 gm in 50 mls @ 100 mls/hr 08/09/24 11:00 08/14/24 06:27 Zosyn 3.375 Gm/Ns 50 Ml IVPB Infused Q6HR MEGGAN Infusion Sodium Chloride 1,000 mls @ 40 mls/hr 08/10/24 16:30 08/14/24 00:07 Normal Saline Iv IV CONT 40 mls/hr .Q24H MEGGAN Administration Dextrose 1,000 mls @ 50 mls/hr 08/12/24 11:57 Dextrose 10% IV CONT .Q20H PRN if PN is interrupted Multivitamins 1.25 ml/ 1,002.5 mls @ 40 mls/hr 08/12/24 13:00 08/13/24 12:51 Multivitamins 1.25 ml/ Amino IV CONT 40 mls/hr Acids/Electrolytes/Dextrose .Q24H MEGGAN Administration Protocol Fat Emulsion Intravenous 250 mls @ 20.833 mls/hr 08/12/24 12:00 08/14/24 01:28 Lipids 20% IVPB Infused Q24H MEGGAN Infusion Potassium Chloride 100 mls @ 25 mls/hr 08/14/24 08:52 08/14/24 09:45 Kcl 40 Meq/Water 100 Ml IVPB 08/14/24 12:51 25 mls/hr ONCE ONE Administration Insulin Aspart 3 - 6 units 08/10/24 18:00 08/14/24 05:59 Insulin Aspart (*Bkc) 100 Units/Ml SUB-Q 4 units Q6H MEGGAN Administration Protocol Insulin Glargine 10 units 08/08/24 21:00 08/13/24 20:23 Insulin Glargine (*Bkc) 100 Units/Ml SUB-Q 10 units HS MEGGAN Administration Levothyroxine Sodium 25 mcg 08/14/24 09:00 Levothyroxine Sodium Inj 100 Mcg/5 Ml Vial IV PUSH Q48H MEGGAN Lorazepam 2 mg 08/08/24 07:42 08/08/24 20:35 Lorazepam Inj (*Crx) 2 Mg/Ml Vial IV PUSH 2 mg Q4H PRN Administration CIWA >15 Miscellaneous Information 1 each 08/13/24 00:01 Clinamix Needs To Be Renewed Or It Will Automatically Discontinue. XX 09/12/24 00:00 CLARIFY MEGGAN Morphine Sulfate 2 mg 08/11/24 17:56 08/14/24 09:43 Morphine Sulfate (*Crx) 2 Mg/Ml Inj IV PUSH 2 mg Q2H PRN Administration Pain Rated 7-10 Ondansetron HCl 4 mg 08/07/24 15:49 08/13/24 20:27 Ondansetron Inj 4 Mg/2 Ml Vial IV PUSH 4 mg Q4H PRN Administration Nausea Sodium Chloride 10 ml 08/12/24 14:00 08/14/24 05:58 Central Line Flush IV PUSH 10 ml Q8HR MEGGAN Administration Sodium Chloride 10 ml 08/12/24 13:02 Central Line Flush IV PUSH PRN PRN with TPN bag changes Sodium Chloride 20 ml 08/12/24 13:02 08/13/24 05:19 Central Line Flush IV PUSH 20 ml PRN PRN Administration after blood draws Thiamine HCl 100 mg 08/08/24 09:00 08/13/24 09:16 Thiamine Hcl 100 Mg Tablet PO 100 mg QAM [facility] Administration Thiamine HCl 100 mg 08/15/24 09:00 Thiamine Hcl 200 Mg/2 Ml Vial IV PUSH QAM MEGGAN Thiamine HCl 100 mg 08/14/24 11:45 Thiamine Hcl 200 Mg/2 Ml Vial IV PUSH 08/14/24 11:46 ONCE ONE Radiology Results: ITS Impressions Upper Quadrant Ultrasound 08/08/24 20:04 IMPRESSION: Cirrhosis. NG Tube Placement 08/10/24 15:41 IMPRESSION: 1. Successful fluoroscopic guided placement of a nasogastric tube which is in expected position with distal tip and proximal side port in the body of the stomach. Chest CT 08/11/24 10:56 IMPRESSION: 1. Peritoneal carcinomatosis. Moderate volume of ascites. 2. Cirrhosis of the liver. Paracentesis Ultrasound 08/11/24 12:36 IMPRESSION: 1. Successful ultrasound-guided paracentesis yielding 4400 mL of reddish fluid. Abdomen/Pelvis CT 08/11/24 17:17 IMPRESSION: 1. Ascites seen in the pelvis, around the liver, right paracolic gutter and around the spleen. Possibility of subcapsular hematoma around the liver cannot be excluded. 2. Liver cirrhosis. 3. Fat stranding in the mesentery which may indicate inflammatory changes or edema. 4. Thickened wall of the small bowel in the area of the pelvis which may indicate enteritis. No air is seen in the wall. Ischemia cannot be excluded. This thickening is slightly more prominent than the previous study. Chest X-Ray 08/12/24 12:50 IMPRESSION: 1. Left PICC line tip at the midsuperior vena cava. 2. Elevation of the right hemidiaphragm with right basilar atelectasis, new since 07/30/2024 but seen on intervening CT from one day prior. Abdomen X-Ray 08/13/24 15:42 IMPRESSION: Suspected small bowel obstruction NG tube in stomach Omental soft tissue infiltration noted on 08/11/2024 raises different diagnosis of inflammatory condition such as Crohn's disease versus malignant infiltration, for example from stomach, lung breast cancer and melanoma. Labs Labs: Laboratory Results - last 24 hr 08/13/24 08/13/24 08/13/24 12:03 17:07 20:19 WBC RBC Hgb Hct MCV MCH MCHC RDW Plt Count MPV Immature Gran % (Auto) Neut % (Auto) Lymph % (Auto) [place] % (Auto) Eos % (Auto) Baso % (Auto) Lymph # (Auto) [place] # (Auto) Eos # (Auto) Baso # (Auto) Abs Immat Gran (auto) Absolute Neuts (auto) Absolute Nucleated RBC Nucleated RBC % PT INR APTT Sodium Potassium Chloride Carbon Dioxide Anion Gap BUN Creatinine Estim Creat Clear Calc Estimated GFR Glucose POC Capillary Glucose 273 H 251 H 228 H Calcium Phosphorus Magnesium Transferrin Total Bilirubin AST ALT Alkaline Phosphatase Total Protein Albumin 08/14/24 08/14/24 08/14/24 00:10 05:50 06:04 WBC RBC Hgb Hct MCV MCH MCHC RDW Plt Count MPV Immature Gran % (Auto) Neut % (Auto) Lymph % (Auto) [place] % (Auto) Eos % (Auto) Baso % (Auto) Lymph # (Auto) [place] # (Auto) Eos # (Auto) Baso # (Auto) Abs Immat Gran (auto) Absolute Neuts (auto) Absolute Nucleated RBC Nucleated RBC % PT 17.8 H INR 1.4 APTT 29.6 Sodium 139 Potassium 3.2 L Chloride 101 Carbon Dioxide 32 H Anion Gap 6 BUN 19 Creatinine 0.60 L Estim Creat Clear Calc 113 Estimated GFR > 60 Glucose 237 H POC Capillary Glucose 262 H 269 H Calcium 7.6 L Phosphorus 3.5 Magnesium 1.7 Transferrin 140 L Total Bilirubin 0.7 AST 38 ALT 24 Alkaline Phosphatase 64 Total Protein 6.0 L Albumin 2.7 L 08/14/24 08/14/24 06:05 11:38 WBC 12.6 H RBC 3.66 L Hgb 11.8 L Hct 36.0 L MCV 98.4 MCH 32.2 MCHC 32.8 RDW 13.0 Plt Count 333 MPV 9.2 Immature Gran % (Auto) 0.7 H Neut % (Auto) 83.0 H Lymph % (Auto) 7.4 L [place] % (Auto) 7.5 Eos % (Auto) 0.9 Baso % (Auto) 0.5 Lymph # (Auto) 0.93 [place] # (Auto) 1.0 H Eos # (Auto) 0.1 Baso # (Auto) 0.1 Abs Immat Gran (auto) 0.09 H Absolute Neuts (auto) 10.5 H Absolute Nucleated RBC 0.000 Nucleated RBC % 0.0 PT INR APTT Sodium Potassium Chloride Carbon Dioxide Anion Gap BUN Creatinine Estim Creat Clear Calc Estimated GFR Glucose POC Capillary Glucose 227 H Calcium Phosphorus Magnesium Transferrin Total Bilirubin AST ALT Alkaline Phosphatase Total Protein Albumin
[2024-08-14] MEDS: LEVOTHYROXINE SODIUM INJ 100 MCG/5 ML VIAL 25 MCG IV PUSH (11:48)
[2024-08-14] MEDS: [UNRECOGNIZED DRUG - OTHER] IV CONT (12:45)
[2024-08-14] MEDS: MULTIVITAMINS IV CONT (12:45)
[2024-08-14] MEDS: FAT EMULSIONS IV 20% 250 ML 20.8 ML IVPB (12:46)
--- NOTE | 2024-08-14 12:55 | PCNFU ---
Nutrition Follow-Up Complete: Inadequate Oral Intake as related to ab pain/ascites as evidenced by poor po intake. Meet estimated nutritional needs. -Meeting ~68% EER nutrition needs with TPN. Goal: Pt current nutrition is NPO. TPN Clinmix 02/22 E running @ 40 ml/h for 1182 kcal, 48 g protein, 1210 ml total volume. About 68% EER. Nutrition recommendation: No new nutrition recommendations. PO diet per MD when medically able. Agree with orders. Last recorded weight is 107.3 kg. Bowel Motility: No BMs Labs Reviewed: Hgb 11.8, Hct 36, Alb 2.7, K+ 3.2, Cre 0.6, Glu 227, TRIG 168 Meds Noted: Zosyn, potassium chloride, thiamine, colace Skin: No skin issues Additional Notes: Started on TPN because of ileus. NGT draining. Awaiting transfer to [place]. Will monitor weight, labs, skin, oral intake, meds every 5 days.
[2024-08-14 13:04] LABS: Alpha Fetoprotein Tumor Marker 4.8 ng/mL (<6.1)
--- NOTE | 2024-08-14 13:07 | P.PNGS_ITS ---
Progress Note: A&P Assessment and Plan (1) Ileus: Code(s): K56.7 - Ileus, unspecified Status: Acute Assessment and Plan: We have been asked to re-evaluate the patient due to his prolonged ileus and concern of a possible small bowel obstruction. He is having high NG output and still no bowel function for the past 5 days. We would recommend to continue NG tube decompression and bowel rest. Will get a water-soluble small bowel series to further evaluate for a small bowel obstruction, but we expect this to be abnormal with at least delayed transit. If he has evidence of a high-grade obstruction, which is likely related to his metastatic cancer, then we would still recommend transfer to a tertiary care facility for any surgical treatment where Surgical Oncology would be available. He is already accepted to [facility] and waiting for bed placement. Will continue to follow along. 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 GI has deferred colonoscopy at this time due to his ileus. Oncology following. His overall prognosis is guarded with only treatment options being palliative in nature. (3) Cirrhosis: Code(s): K74.60 - Unspecified cirrhosis of liver Status: Acute (4) Diabetes mellitus: Code(s): E11.9 - Type 2 diabetes mellitus without complications Status: Acute (5) Alcohol abuse: Code(s): F10.10 - Alcohol abuse, uncomplicated Status: Acute Plan I have discussed the patient's case and plan of care with Dr. Figueroa. Subjective Subjective Date/Time Seen: 08/14/24 13:07 Patient reports: flatus, no bowel movement and afebrile Interval history: We were asked by the Hospitalist to re-evaluate the patient for an ileus versus small bowel obstruction. Since he was seen last week, he has not had any bowel movements and has had an NG tube placed. He has been NPO for the past 4 days. He had another paracentesis on 08/11/2024 with 4400 mL taken off. He is still complaining of lower abdominal pain. He does report finally starting to pass some flatus last night and this morning. He has an NG tube and has had high output. He had 1100 mL of output last night during fast food shift lead. He has been accepted [facility] and is waiting for bed placement. GI is unable to do a colonoscopy due to this persistent ileus. Exam Const: General: comfortable and no acute distress Orientation/consciousness: patient oriented x3 GI: Inspection: distended and other (large rounded protuberant and distended abdomen) GI Palp: Yes Firmness to palpation present (GI), Yes Tenderness to palpation present (GI) (diffusely tender), No Guarding due to palpation present (GI) and No Rebound tenderness present Auscultation: absent bowel sounds Objective Data Vital Signs Vital Signs: Vital Signs - 24 hr 08/13/24 14:39 08/13/24 16:00 08/13/24 16:00 Temperature 98.0 F 97.9 F Pulse Rate 92 87 Respiratory Rate 16 20 Blood Pressure 135/84 148/84 H 151/9 H Pulse Oximetry 95 96 Oxygen Delivery 08/13/24 20:00 08/13/24 20:00 08/14/24 00:20 Temperature 98.0 F 97.6 F Pulse Rate 93 86 Respiratory Rate 18 16 Blood Pressure 153/92 H 147/98 H Pulse Oximetry 94 96 Oxygen Delivery Room Air 08/14/24 04:01 08/14/24 09:43 08/14/24 10:00 Temperature 97.5 F L 96.7 F L Pulse Rate 93 88 Respiratory Rate 14 18 Blood Pressure 129/83 131/81 Pulse Oximetry 95 96 Oxygen Delivery Room Air Intake/Output Intake/Output: Intake & Output 08/12/24 08/13/24 08/13/24 08/14/24 00:59 00:59 23:59 23:59 Intake Total 2304 Output Total 1650 Balance 654 Meds/Results Medications: Active Medications Generic Name Dose Route Start Last Admin Trade Name Freq PRN Reason Stop Dose Admin Acetaminophen 650 mg 08/07/24 17:40 Acetaminophen 325 Mg Tablet PO Q4H PRN Mild Pain (1-3) or Fever Hydrocodone Bitart/Acetaminophen 1 tab 08/07/24 15:49 08/10/24 12:46 Hydrocodone/Acetaminophen (*Crx) 5-325 Mg Tablet PO 1 tab Q4H PRN Administration Pain Rated 4-6 Chlordiazepoxide HCl 25 mg 08/08/24 12:53 Chlordiazepoxide (*Crx) 25 Mg Capsule PO Q6H PRN Withdrawal CIWA 8-15 Dextrose 12.5 gm 08/07/24 22:17 Dextrose 50% 25 Gm/50 Ml Syringe IV PUSH PRN PRN Hypoglycemia Protocol Docusate Sodium 100 mg 08/08/24 09:00 08/14/24 11:54 Docusate Sodium 100 Mg Capsule PO Not Given BID MEGGAN Finasteride 5 mg 08/08/24 09:00 08/13/24 09:16 Finasteride 5 Mg Tablet PO 5 mg DAILY MEGGAN Administration Folic Acid 1 mg 08/15/24 09:00 Folic Acid 1 Mg/0.2 Ml Inj IV PUSH QAM MEGGAN Glucagon 1 mg 08/07/24 22:17 Glucagon For Inj 1 Mg Vial IM PRN PRN Hypoglycemia Protocol Glucose 15 gm 08/07/24 22:17 Glucose Oral Gel 15 Gm Of Glucse In 37.5 Gm Tube PO PRN PRN Hypoglycemia Protocol Dextrose 1,000 mls @ 100 mls/hr 08/07/24 22:17 Dextrose 5% 1,000 Ml IVPB PRN PRN Hypoglycemia Protocol Piperacillin/Tazobactam/Dextrose 3.375 gm in 50 mls @ 100 mls/hr 08/09/24 11:00 08/14/24 06:27 Zosyn 3.375 Gm/Ns 50 Ml IVPB 08/18/24 23:59 Infused Q6HR MEGGAN Infusion Sodium Chloride 1,000 mls @ 40 mls/hr 08/10/24 16:30 08/14/24 00:07 Normal Saline Iv IV CONT 40 mls/hr .Q24H MEGGAN Administration Dextrose 1,000 mls @ 50 mls/hr 08/12/24 11:57 Dextrose 10% IV CONT .Q20H PRN if PN is interrupted Multivitamins 1.25 ml/ 1,002.5 mls @ 40 mls/hr 08/12/24 13:00 08/14/24 12:45 Multivitamins 1.25 ml/ Amino IV CONT 40 mls/hr Acids/Electrolytes/Dextrose .Q24H MEGGAN Administration Protocol Fat Emulsion Intravenous 250 mls @ 20.833 mls/hr 08/12/24 12:00 08/14/24 12:46 Lipids 20% IVPB 20.8 mls/hr Q24H MEGGAN Administration Insulin Aspart 3 - 6 units 08/10/24 18:00 08/14/24 11:54 Insulin Aspart (*Bkc) 100 Units/Ml SUB-Q 3 units Q6H [facility] Administration Protocol Insulin Glargine 16 units 08/14/24 21:00 Insulin Glargine (*Bkc) 100 Units/Ml SUB-Q HS [facility] Levothyroxine Sodium 25 mcg 08/14/24 09:00 08/14/24 11:48 Levothyroxine Sodium Inj 100 Mcg/5 Ml Vial IV PUSH 25 mcg Q48H [facility] Administration Lorazepam 2 mg 08/08/24 07:42 08/08/24 20:35 Lorazepam Inj (*Crx) 2 Mg/Ml Vial IV PUSH 2 mg Q4H PRN Administration CIWA >15 Miscellaneous Information 1 each 08/13/24 00:01 Clinamix Needs To Be Renewed Or It Will Automatically Discontinue. XX 09/12/24 00:00 CLARIFY [facility] Morphine Sulfate 2 mg 08/11/24 17:56 08/14/24 12:47 Morphine Sulfate (*Crx) 2 Mg/Ml Inj IV PUSH 2 mg Q2H PRN Administration Pain Rated 7-10 Ondansetron HCl 4 mg 08/07/24 15:49 08/13/24 20:27 Ondansetron Inj 4 Mg/2 Ml Vial IV PUSH 4 mg Q4H PRN Administration Nausea Sodium Chloride 10 ml 08/12/24 14:00 08/14/24 05:58 Central Line Flush IV PUSH 10 ml Q8HR MEGGAN Administration Sodium Chloride 10 ml 08/12/24 13:02 Central Line Flush IV PUSH PRN PRN with TPN bag changes Sodium Chloride 20 ml 08/12/24 13:02 08/13/24 05:19 Central Line Flush IV PUSH 20 ml PRN PRN Administration after blood draws Thiamine HCl 100 mg 08/15/24 09:00 Thiamine Hcl 200 Mg/2 Ml Vial IV PUSH QAM [facility] Radiology Results: ITS Impressions Upper Quadrant Ultrasound 08/08/24 20:04 IMPRESSION: Cirrhosis. NG Tube Placement 08/10/24 15:41 IMPRESSION: 1. Successful fluoroscopic guided placement of a nasogastric tube which is in expected position with distal tip and proximal side port in the body of the stomach. Chest CT 08/11/24 10:56 IMPRESSION: 1. Peritoneal carcinomatosis. Moderate volume of ascites. 2. Cirrhosis of the liver. Paracentesis Ultrasound 08/11/24 12:36 IMPRESSION: 1. Successful ultrasound-guided paracentesis yielding 4400 mL of reddish fluid. Abdomen/Pelvis CT 08/11/24 17:17 IMPRESSION: 1. Ascites seen in the pelvis, around the liver, right paracolic gutter and around the spleen. Possibility of subcapsular hematoma around the liver cannot be excluded. 2. Liver cirrhosis. 3. Fat stranding in the mesentery which may indicate inflammatory changes or edema. 4. Thickened wall of the small bowel in the area of the pelvis which may indicate enteritis. No air is seen in the wall. Ischemia cannot be excluded. This thickening is slightly more prominent than the previous study. Chest X-Ray 08/12/24 12:50 IMPRESSION: 1. Left PICC line tip at the midsuperior vena cava. 2. Elevation of the right hemidiaphragm with right basilar atelectasis, new since 07/30/2024 but seen on intervening CT from one day prior. Abdomen X-Ray 08/13/24 15:42 IMPRESSION: Suspected small bowel obstruction NG tube in stomach Omental soft tissue infiltration noted on 08/11/2024 raises different diagnosis of inflammatory condition such as Crohn's disease versus malignant infiltration, for example from stomach, lung breast cancer and melanoma. Labs Labs: Laboratory Results - last 24 hr 08/09/24 08/13/24 08/13/24 05:44 17:07 20:19 WBC RBC Hgb Hct MCV MCH MCHC RDW Plt Count MPV Immature Gran % (Auto) Neut % (Auto) Lymph % (Auto) [place] % (Auto) Eos % (Auto) Baso % (Auto) Lymph # (Auto) [place] # (Auto) Eos # (Auto) Baso # (Auto) Abs Immat Gran (auto) Absolute Neuts (auto) Absolute Nucleated RBC Nucleated RBC % PT INR APTT Sodium Potassium Chloride Carbon Dioxide Anion Gap BUN Creatinine Estim Creat Clear Calc Estimated GFR Glucose POC Capillary Glucose 251 H 228 H Calcium Phosphorus Magnesium Transferrin Total Bilirubin AST ALT Alkaline Phosphatase Total Protein Albumin Alpha Fetoprotein 4.8 08/14/24 08/14/24 08/14/24 00:10 05:50 06:04 WBC RBC Hgb Hct MCV MCH MCHC RDW Plt Count MPV Immature Gran % (Auto) Neut % (Auto) Lymph % (Auto) [place] % (Auto) Eos % (Auto) Baso % (Auto) Lymph # (Auto) [place] # (Auto) Eos # (Auto) Baso # (Auto) Abs Immat Gran (auto) Absolute Neuts (auto) Absolute Nucleated RBC Nucleated RBC % PT 17.8 H INR 1.4 APTT 29.6 Sodium 139 Potassium 3.2 L Chloride 101 Carbon Dioxide 32 H Anion Gap 6 BUN 19 Creatinine 0.60 L Estim Creat Clear Calc 113 Estimated GFR > 60 Glucose 237 H POC Capillary Glucose 262 H 269 H Calcium 7.6 L Phosphorus 3.5 Magnesium 1.7 Transferrin 140 L Total Bilirubin 0.7 AST 38 ALT 24 Alkaline Phosphatase 64 Total Protein 6.0 L Albumin 2.7 L Alpha Fetoprotein 08/14/24 08/14/24 06:05 11:38 WBC 12.6 H RBC 3.66 L Hgb 11.8 L Hct 36.0 L MCV 98.4 MCH 32.2 MCHC 32.8 RDW 13.0 Plt Count 333 MPV 9.2 Immature Gran % (Auto) 0.7 H Neut % (Auto) 83.0 H Lymph % (Auto) 7.4 L [place] % (Auto) 7.5 Eos % (Auto) 0.9 Baso % (Auto) 0.5 Lymph # (Auto) 0.93 [place] # (Auto) 1.0 H Eos # (Auto) 0.1 Baso # (Auto) 0.1 Abs Immat Gran (auto) 0.09 H Absolute Neuts (auto) 10.5 H Absolute Nucleated RBC 0.000 Nucleated RBC % 0.0 PT INR APTT Sodium Potassium Chloride Carbon Dioxide Anion Gap BUN Creatinine Estim Creat Clear Calc Estimated GFR Glucose POC Capillary Glucose 227 H Calcium Phosphorus Magnesium Transferrin Total Bilirubin AST ALT Alkaline Phosphatase Total Protein Albumin Alpha Fetoprotein
[2024-08-14 14:00] VITALS: BP 131/81; PULSE 88; RESP 18; TEMP 35.9; O2SAT 96
[2024-08-14] MEDS: FOLIC ACID 1 MG/0.2 ML INJ IV PUSH (15:18)
[2024-08-14] MEDS: THIAMINE HCL 200 MG/2 ML VIAL 100 MG IV PUSH (15:20)
--- NOTE | 2024-08-14 17:06 | WPDGIPROGNO ---
Progress Note: A&P Assessment and Plan (1) Ileus: Code(s): K56.7 - Ileus, unspecified Status: Acute Assessment and Plan: The patient has small-bowel obstruction versus ileus secondary to invasive cancer of unknown primary, causing ascites and probably malignant adhesions. In addition, patient has underlying cirrhosis to further complicate matters. As mentioned previously, his prognosis is grim, and the search for a primary tumor by endoscopic studies is not possible due to persistent ileus. The patient is waiting for transfer to another institution for palliative care. (2) Cirrhosis: Code(s): K74.60 - Unspecified cirrhosis of liver Status: Acute (3) Abdominal carcinomatosis: Code(s): C76.2 - Malignant neoplasm of abdomen Status: Acute Time Spent With Patient Time with patient: less than 15 minutes Subjective Date/time seen: 08/14/24 17:06 Interval history: The patient still has abdominal pain, and his drainage from nasogastric tube is quite significant, an average of 800 cc per shift. Patient is currently getting his small-bowel follow-through in the radiology department. Objective Data Vital Signs Vital Signs: Vital Signs - 24 hr 08/13/24 20:00 08/13/24 20:00 08/14/24 00:20 Temperature 98.0 F 97.6 F Pulse Rate 93 86 Respiratory Rate 18 16 Blood Pressure 153/92 H 147/98 H Pulse Oximetry 94 96 Oxygen Delivery Room Air 08/14/24 04:01 08/14/24 09:43 08/14/24 10:00 Temperature 97.5 F L 96.7 F L Pulse Rate 93 88 Respiratory Rate 14 18 Blood Pressure 129/83 131/81 Pulse Oximetry 95 96 Oxygen Delivery Room Air 08/14/24 14:00 Temperature 96.7 F L Pulse Rate 88 Respiratory Rate 18 Blood Pressure 131/81 Pulse Oximetry 96 Oxygen Delivery Intake/Output Intake/Output: Intake & Output 08/12/24 08/13/24 08/13/24 08/14/24 00:59 00:59 23:59 23:59 Intake Total 2304 Output Total 1650 Balance 654 Meds/Results Medications: Active Medications Generic Name Dose Route Start Last Admin Trade Name Freq PRN Reason Stop Dose Admin Acetaminophen 650 mg 08/07/24 17:40 Acetaminophen 325 Mg Tablet PO Q4H PRN Mild Pain (1-3) or Fever Hydrocodone Bitart/Acetaminophen 1 tab 08/07/24 15:49 08/10/24 12:46 Hydrocodone/Acetaminophen (*Crx) 5-325 Mg Tablet PO 1 tab Q4H PRN Administration Pain Rated 4-6 Chlordiazepoxide HCl 25 mg 08/08/24 12:53 Chlordiazepoxide (*Crx) 25 Mg Capsule PO Q6H PRN Withdrawal CIWA 8-15 Dextrose 12.5 gm 08/07/24 22:17 Dextrose 50% 25 Gm/50 Ml Syringe IV PUSH PRN PRN Hypoglycemia Protocol Docusate Sodium 100 mg 08/08/24 09:00 08/14/24 11:54 Docusate Sodium 100 Mg Capsule PO Not Given BID MEGGAN Finasteride 5 mg 08/08/24 09:00 08/14/24 15:23 Finasteride 5 Mg Tablet PO Not Given DAILY MEGGAN Folic Acid 1 mg 08/15/24 09:00 Folic Acid 1 Mg/0.2 Ml Inj IV PUSH QAM MEGGAN Glucagon 1 mg 08/07/24 22:17 Glucagon For Inj 1 Mg Vial IM PRN PRN Hypoglycemia Protocol Glucose 15 gm 08/07/24 22:17 Glucose Oral Gel 15 Gm Of Glucse In 37.5 Gm Tube PO PRN PRN Hypoglycemia Protocol Dextrose 1,000 mls @ 100 mls/hr 08/07/24 22:17 Dextrose 5% 1,000 Ml IVPB PRN PRN Hypoglycemia Protocol Piperacillin/Tazobactam/Dextrose 3.375 gm in 50 mls @ 100 mls/hr 08/09/24 11:00 08/14/24 06:27 Zosyn 3.375 Gm/Ns 50 Ml IVPB 08/18/24 23:59 Infused Q6HR MEGGAN Infusion Sodium Chloride 1,000 mls @ 40 mls/hr 08/10/24 16:30 08/14/24 00:07 Normal Saline Iv IV CONT 40 mls/hr .Q24H MEGGAN Administration Dextrose 1,000 mls @ 50 mls/hr 08/12/24 11:57 Dextrose 10% IV CONT .Q20H PRN if PN is interrupted Multivitamins 1.25 ml/ 1,002.5 mls @ 40 mls/hr 08/12/24 13:00 08/14/24 12:45 Multivitamins 1.25 ml/ Amino IV CONT 40 mls/hr Acids/Electrolytes/Dextrose .Q24H MEGGAN Administration Protocol Fat Emulsion Intravenous 250 mls @ 20.833 mls/hr 08/12/24 12:00 08/14/24 12:46 Lipids 20% IVPB 20.8 mls/hr Q24H MEGGAN Administration Insulin Aspart 3 - 6 units 08/10/24 18:00 08/14/24 11:54 Insulin Aspart (*Bkc) 100 Units/Ml SUB-Q 3 units Q6H [facility] Administration Protocol Insulin Glargine 16 units 08/14/24 21:00 Insulin Glargine (*Bkc) 100 Units/Ml SUB-Q HS [facility] Levothyroxine Sodium 25 mcg 08/14/24 09:00 08/14/24 11:48 Levothyroxine Sodium Inj 100 Mcg/5 Ml Vial IV PUSH 25 mcg Q48H MEGGAN Administration Lorazepam 2 mg 08/08/24 07:42 08/08/24 20:35 Lorazepam Inj (*Crx) 2 Mg/Ml Vial IV PUSH 2 mg Q4H PRN Administration CIWA >15 Miscellaneous Information 1 each 08/13/24 00:01 Clinamix Needs To Be Renewed Or It Will Automatically Discontinue. XX 09/12/24 00:00 CLARIFY [facility] Morphine Sulfate 2 mg 08/11/24 17:56 08/14/24 15:15 Morphine Sulfate (*Crx) 2 Mg/Ml Inj IV PUSH 2 mg Q2H PRN Administration Pain Rated 7-10 Ondansetron HCl 4 mg 08/07/24 15:49 08/13/24 20:27 Ondansetron Inj 4 Mg/2 Ml Vial IV PUSH 4 mg Q4H PRN Administration Nausea Sodium Chloride 10 ml 08/12/24 14:00 08/14/24 05:58 Central Line Flush IV PUSH 10 ml Q8HR MEGGAN Administration Sodium Chloride 10 ml 08/12/24 13:02 Central Line Flush IV PUSH PRN PRN with TPN bag changes Sodium Chloride 20 ml 08/12/24 13:02 08/13/24 05:19 Central Line Flush IV PUSH 20 ml PRN PRN Administration after blood draws Thiamine HCl 100 mg 08/15/24 09:00 Thiamine Hcl 200 Mg/2 Ml Vial IV PUSH QAM [facility] Radiology Results: ITS Impressions Upper Quadrant Ultrasound 08/08/24 20:04 IMPRESSION: Cirrhosis. NG Tube Placement 08/10/24 15:41 IMPRESSION: 1. Successful fluoroscopic guided placement of a nasogastric tube which is in expected position with distal tip and proximal side port in the body of the stomach. Chest CT 08/11/24 10:56 IMPRESSION: 1. Peritoneal carcinomatosis. Moderate volume of ascites. 2. Cirrhosis of the liver. Paracentesis Ultrasound 08/11/24 12:36 IMPRESSION: 1. Successful ultrasound-guided paracentesis yielding 4400 mL of reddish fluid. Abdomen/Pelvis CT 08/11/24 17:17 IMPRESSION: 1. Ascites seen in the pelvis, around the liver, right paracolic gutter and around the spleen. Possibility of subcapsular hematoma around the liver cannot be excluded. 2. Liver cirrhosis. 3. Fat stranding in the mesentery which may indicate inflammatory changes or edema. 4. Thickened wall of the small bowel in the area of the pelvis which may indicate enteritis. No air is seen in the wall. Ischemia cannot be excluded. This thickening is slightly more prominent than the previous study. Chest X-Ray 08/12/24 12:50 IMPRESSION: 1. Left PICC line tip at the midsuperior vena cava. 2. Elevation of the right hemidiaphragm with right basilar atelectasis, new since 07/30/2024 but seen on intervening CT from one day prior. Abdomen X-Ray 08/13/24 15:42 IMPRESSION: Suspected small bowel obstruction NG tube in stomach Omental soft tissue infiltration noted on 08/11/2024 raises different diagnosis of inflammatory condition such as Crohn's disease versus malignant infiltration, for example from stomach, lung breast cancer and melanoma. Labs Labs: Laboratory Results - last 24 hr 08/09/24 08/13/24 08/13/24 05:44 17:07 20:19 WBC RBC Hgb Hct MCV MCH MCHC RDW Plt Count MPV Immature Gran % (Auto) Neut % (Auto) Lymph % (Auto) [place] % (Auto) Eos % (Auto) Baso % (Auto) Lymph # (Auto) [place] # (Auto) Eos # (Auto) Baso # (Auto) Abs Immat Gran (auto) Absolute Neuts (auto) Absolute Nucleated RBC Nucleated RBC % PT INR APTT Sodium Potassium Chloride Carbon Dioxide Anion Gap BUN Creatinine Estim Creat Clear Calc Estimated GFR Glucose POC Capillary Glucose 251 H 228 H Calcium Phosphorus Magnesium Transferrin Total Bilirubin AST ALT Alkaline Phosphatase Total Protein Albumin Alpha Fetoprotein 4.8 08/14/24 08/14/24 08/14/24 00:10 05:50 06:04 WBC RBC Hgb Hct MCV MCH MCHC RDW Plt Count MPV Immature Gran % (Auto) Neut % (Auto) Lymph % (Auto) [place] % (Auto) Eos % (Auto) Baso % (Auto) Lymph # (Auto) [place] # (Auto) Eos # (Auto) Baso # (Auto) Abs Immat Gran (auto) Absolute Neuts (auto) Absolute Nucleated RBC Nucleated RBC % PT 17.8 H INR 1.4 APTT 29.6 Sodium 139 Potassium 3.2 L Chloride 101 Carbon Dioxide 32 H Anion Gap 6 BUN 19 Creatinine 0.60 L Estim Creat Clear Calc 113 Estimated GFR > 60 Glucose 237 H POC Capillary Glucose 262 H 269 H Calcium 7.6 L Phosphorus 3.5 Magnesium 1.7 Transferrin 140 L Total Bilirubin 0.7 AST 38 ALT 24 Alkaline Phosphatase 64 Total Protein 6.0 L Albumin 2.7 L Alpha Fetoprotein 08/14/24 08/14/24 06:05 11:38 WBC 12.6 H RBC 3.66 L Hgb 11.8 L Hct 36.0 L MCV 98.4 MCH 32.2 MCHC 32.8 RDW 13.0 Plt Count 333 MPV 9.2 Immature Gran % (Auto) 0.7 H Neut % (Auto) 83.0 H Lymph % (Auto) 7.4 L [place] % (Auto) 7.5 Eos % (Auto) 0.9 Baso % (Auto) 0.5 Lymph # (Auto) 0.93 [place] # (Auto) 1.0 H Eos # (Auto) 0.1 Baso # (Auto) 0.1 Abs Immat Gran (auto) 0.09 H Absolute Neuts (auto) 10.5 H Absolute Nucleated RBC 0.000 Nucleated RBC % 0.0 PT INR APTT Sodium Potassium Chloride Carbon Dioxide Anion Gap BUN Creatinine Estim Creat Clear Calc Estimated GFR Glucose POC Capillary Glucose 227 H Calcium Phosphorus Magnesium Transferrin Total Bilirubin AST ALT Alkaline Phosphatase Total Protein Albumin Alpha Fetoprotein
[2024-08-14 17:52] LABS: Glucose Point of Care 281 mg/dl (65-105)
[2024-08-14 18:00] VITALS: BP 137/88; PULSE 107; RESP 20; TEMP 35.9; O2SAT 96
[2024-08-14 18:20] LABS: Add Urine Microscopic? YES; Appearance Urine Clear (Clear); Bacteria Urine None Seen /hpf; Bilirubin Urine 2+ (Negative); Blood Urine Negative (Negative); Color Urine Dark Yellow (Yellow); Glucose Urine UA 2+ mg/dL (Negative); Ketones Urine Trace mg/dL (Negative); Leukocyte Esterase Ur Negative LEU/UL (Negative); Nitrate Urine Negative (Negative); Protein Urine 2+ mg/dL (Negative); RBC Urine 0-2 /hpf (0-2); Specific Grav Ur 1.042 (1.001-1.035); Squamous Epithelial Cell Urine Occasional /hpf (Few); WBC Urine 0-5 /hpf (0-3); pH Urine 5.5 (5.0-9.0)
[2024-08-14 20:37] VITALS: BP 148/93; PULSE 99; RESP 20; TEMP 36.1; O2SAT 93
[2024-08-14] MEDS: INSULIN GLARGINE (*BKC) 100 UNITS/ML 16 UNITS SUB-Q (20:51)
[2024-08-15] VITALS (7 sets, daily range): BP systolic 145–151; BP diastolic 83–94; PULSE 85–95; RESP 16–20; TEMP 36.3–36.6; O2SAT 92–95
[2024-08-15] MEDS: INSULIN ASPART (*BKC) 100 UNITS/ML SUB-Q ×4 (00:09→18:58)
[2024-08-15] MEDS: MORPHINE SULFATE (*CRX) 2 MG/ML INJ IV PUSH ×6 (00:10→23:28)
[2024-08-15] MEDS: PIPERACILLN/TAZ 3.375GM/NS50ML 3.375 GM/50 ML BAG IVPB ×5 (00:10→23:29)
[2024-08-15 00:11] LABS: Glucose Point of Care 293 mg/dl (65-105)
[2024-08-15 00:11] LABS: Glucose Point of Care 305 mg/dl (65-105)
[2024-08-15 04:42] LABS: Anion Gap 4 mmol/L (4-12); Blood Urea Nitrogen 23 mg/dL (9-20); Calcium 8.1 mg/dL (8.4-10.2); Carbon Dioxide 36 mmol/L (22-30); Chloride 103 mmol/L (98-107); Estimated CRCL calculation 100 ml/min; Estimated Glomerular Filt Rate > 60; Glucose 233 mg/dL (65-110); Phosphorus 3.8 mg/dL (2.5-4.5); Potassium 3.6 mmol/L (3.4-5.0); Sodium 143 mmol/L (137-145); Triglycerides 165 mg/dL (<150)
[2024-08-15] MEDS: CENTRAL LINE FLUSH 10 ML IV PUSH ×3 (05:11→20:31)
--- NOTE | 2024-08-15 08:36 | PCNFU ---
Nutrition Follow-Up Complete: Inadequate Oral Intake as related to ab pain/ascites as evidenced by poor po intake. Meet estimated nutritional needs. - Being met with TPN @ ~68% EER Goal: Pt current nutrition is TPN Clinmix 5/15E with lipids@ 40 ml/h: 1182 kcal, 48 g protein, 1210 ml total volume. Nutrition recommendation: No new nutrition recommendations. Continue with nutrition care plan Last recorded weight is 110.6 kg. Bowel Motility: 0 BMs Labs Reviewed: BUN 23, Glu 233, TRIG 165 Meds Noted: Zosyn, potassium chloride, thiamine, colace Skin: No skin issues Additional Notes: TPN continues for ileus. NG tube draining. Possible transfer. Agree with orders Will monitor weight, labs, skin, oral intake, meds every 5 days.
[2024-08-15] MEDS: THIAMINE HCL 200 MG/2 ML VIAL 100 MG IV PUSH (09:43)
[2024-08-15] MEDS: FOLIC ACID 1 MG/0.2 ML INJ IV PUSH (09:44)
[2024-08-15] MEDS: DOCUSATE SODIUM 100 MG CAPSULE PO (09:45)
[2024-08-15] MEDS: MULTIVITAMINS IV CONT (12:11)
[2024-08-15] MEDS: [UNRECOGNIZED DRUG - OTHER] IV CONT (12:11)
[2024-08-15] MEDS: FAT EMULSIONS IV 20% 250 ML 20.8 ML IVPB (12:12)
[2024-08-15 12:38] LABS: Glucose Point of Care 285 mg/dl (65-105)
--- NOTE | 2024-08-15 12:46 | PM.PNGS ---
Progress Note: A&P Assessment and Plan (1) Ileus: Code(s): K56.7 - Ileus, unspecified Status: Acute Assessment and Plan: Small bowel series showed no contrast reaching the colon at 4 hours and repeat KUB this morning showed some contrast in the colon, consistent with a partial small bowel obstruction. This could very likely be related to his carcinomatosis. Discussed with the Hospitalist that we would still recommend transfer to [facility] where he can be evaluated by Surgical Oncology, which he has been accepted to and is waiting for bed placement. 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 GI has deferred colonoscopy at this time due to his small bowel obstruction. Oncology following. His overall prognosis is guarded with only treatment options being palliative in nature. (3) Cirrhosis: Code(s): K74.60 - Unspecified cirrhosis of liver Status: Acute (4) Diabetes mellitus: Code(s): E11.9 - Type 2 diabetes mellitus without complications Status: Acute (5) Alcohol abuse: Code(s): F10.10 - Alcohol abuse, uncomplicated Status: Acute Plan I have discussed the patient's case and plan of care with Dr. Figueroa. Subjective Subjective Date/Time Seen: 08/15/24 12:46 Patient reports: no new complaints, flatus and no bowel movement Interval history: Patient still has diffuse abdominal pain that is unchanged from yesterday. He is passing more flatus today. No BM since the SBS yesterday. He reports vomiting yesterday sometime after he had the water soluble contrast. Still waiting for bed placement to [facility]. Exam Const: General: comfortable and no acute distress Orientation/consciousness: patient oriented x3 GI: Inspection: distended GI Palp: Yes Firmness to palpation present (GI), Yes Tenderness to palpation present (GI) (diffusely tender), No Guarding due to palpation present (GI) and No Rebound tenderness present Auscultation: Hypoactive bowel sounds present Objective Data Vital Signs Vital Signs: Vital Signs - 24 hr 08/14/24 14:00 08/14/24 18:00 08/14/24 20:37 Temperature 96.7 F L 96.7 F L 96.9 F L Pulse Rate 88 107 H 99 Respiratory Rate 18 20 20 Blood Pressure 131/81 137/88 148/93 H Pulse Oximetry 96 96 93 Oxygen Delivery 08/14/24 20:00 08/15/24 04:29 08/15/24 04:28 Temperature 97.4 F L 97.4 F L Pulse Rate 95 95 Respiratory Rate 20 20 Blood Pressure 149/89 H 149/89 H Pulse Oximetry 92 92 Oxygen Delivery Room Air 08/15/24 09:34 08/15/24 10:00 Temperature 97.6 F Pulse Rate 85 Respiratory Rate 16 Blood Pressure 145/89 H Pulse Oximetry 94 Oxygen Delivery Room Air Intake/Output Intake/Output: Intake & Output 08/13/24 08/13/24 08/14/24 08/15/24 00:59 23:59 23:59 23:59 Intake Total 3164.7 1287.3 Output Total 3950 1200 Balance -785.3 87.3 Meds/Results Medications: Active Medications Generic Name Dose Route Start Last Admin Trade Name Freq PRN Reason Stop Dose Admin Acetaminophen 650 mg 08/07/24 17:40 Acetaminophen 325 Mg Tablet PO Q4H PRN Mild Pain (1-3) or Fever Hydrocodone Bitart/Acetaminophen 1 tab 08/07/24 15:49 08/10/24 12:46 Hydrocodone/Acetaminophen (*Crx) 5-325 Mg Tablet PO 1 tab Q4H PRN Administration Pain Rated 4-6 Chlordiazepoxide HCl 25 mg 08/08/24 12:53 Chlordiazepoxide (*Crx) 25 Mg Capsule PO Q6H PRN Withdrawal CIWA 8-15 Dextrose 12.5 gm 08/07/24 22:17 Dextrose 50% 25 Gm/50 Ml Syringe IV PUSH PRN PRN Hypoglycemia Protocol Docusate Sodium 100 mg 08/08/24 09:00 08/15/24 09:45 Docusate Sodium 100 Mg Capsule PO 100 mg BID MEGGAN Administration Finasteride 5 mg 08/08/24 09:00 08/14/24 15:23 Finasteride 5 Mg Tablet PO Not Given DAILY MEGGAN Folic Acid 1 mg 08/15/24 09:00 08/15/24 09:44 Folic Acid 1 Mg/0.2 Ml Inj IV PUSH 1 mg QAM MEGGAN Administration Glucagon 1 mg 08/07/24 22:17 Glucagon For Inj 1 Mg Vial IM PRN PRN Hypoglycemia Protocol Glucose 15 gm 08/07/24 22:17 Glucose Oral Gel 15 Gm Of Glucse In 37.5 Gm Tube PO PRN PRN Hypoglycemia Protocol Dextrose 1,000 mls @ 100 mls/hr 08/07/24 22:17 Dextrose 5% 1,000 Ml IVPB PRN PRN Hypoglycemia Protocol Piperacillin/Tazobactam/Dextrose 3.375 gm in 50 mls @ 100 mls/hr 08/09/24 11:00 08/15/24 12:07 Zosyn 3.375 Gm/Ns 50 Ml IVPB 08/18/24 23:59 100 mls/hr Q6HR MEGGAN Administration Sodium Chloride 1,000 mls @ 40 mls/hr 08/10/24 16:30 08/14/24 17:53 Normal Saline Iv IV CONT 40 mls/hr .Q24H MEGGAN Administration Dextrose 1,000 mls @ 50 mls/hr 08/12/24 11:57 Dextrose 10% IV CONT .Q20H PRN if PN is interrupted Multivitamins 1.25 ml/ 1,002.5 mls @ 40 mls/hr 08/12/24 13:00 08/15/24 12:11 Multivitamins 1.25 ml/ Amino IV CONT 40 mls/hr Acids/Electrolytes/Dextrose .Q24H MEGGAN Administration Protocol Fat Emulsion Intravenous 250 mls @ 20.833 mls/hr 08/12/24 12:00 08/15/24 12:12 Lipids 20% IVPB 20.8 mls/hr Q24H MEGGAN Administration Insulin Aspart 3 - 6 units 08/10/24 18:00 08/15/24 12:41 Insulin Aspart (*Bkc) 100 Units/Ml SUB-Q 4 units Q6H MEGGAN Administration Protocol Insulin Glargine 16 units 08/14/24 21:00 08/14/24 20:51 Insulin Glargine (*Bkc) 100 Units/Ml SUB-Q 16 units HS MEGGAN Administration Levothyroxine Sodium 25 mcg 08/14/24 09:00 08/14/24 11:48 Levothyroxine Sodium Inj 100 Mcg/5 Ml Vial IV PUSH 25 mcg Q48H MEGGAN Administration Lorazepam 2 mg 08/08/24 07:42 08/08/24 20:35 Lorazepam Inj (*Crx) 2 Mg/Ml Vial IV PUSH 2 mg Q4H PRN Administration CIWA >15 Morphine Sulfate 2 mg 08/11/24 17:56 08/15/24 09:34 Morphine Sulfate (*Crx) 2 Mg/Ml Inj IV PUSH 2 mg Q2H PRN Administration Pain Rated 7-10 Ondansetron HCl 4 mg 08/07/24 15:49 08/13/24 20:27 Ondansetron Inj 4 Mg/2 Ml Vial IV PUSH 4 mg Q4H PRN Administration Nausea Sodium Chloride 10 ml 08/12/24 14:00 08/15/24 05:11 Central Line Flush IV PUSH 10 ml Q8HR MEGGAN Administration Sodium Chloride 10 ml 08/12/24 13:02 Central Line Flush IV PUSH PRN PRN with TPN bag changes Sodium Chloride 20 ml 08/12/24 13:02 08/13/24 05:19 Central Line Flush IV PUSH 20 ml PRN PRN Administration after blood draws Thiamine HCl 100 mg 08/15/24 09:00 08/15/24 09:43 Thiamine Hcl 200 Mg/2 Ml Vial IV PUSH 100 mg QAM MEGGAN Administration Radiology Results: ITS Impressions Upper Quadrant Ultrasound 08/08/24 20:04 IMPRESSION: Cirrhosis. NG Tube Placement 08/10/24 15:41 IMPRESSION: 1. Successful fluoroscopic guided placement of a nasogastric tube which is in expected position with distal tip and proximal side port in the body of the stomach. Chest CT 08/11/24 10:56 IMPRESSION: 1. Peritoneal carcinomatosis. Moderate volume of ascites. 2. Cirrhosis of the liver. Paracentesis Ultrasound 08/11/24 12:36 IMPRESSION: 1. Successful ultrasound-guided paracentesis yielding 4400 mL of reddish fluid. Abdomen/Pelvis CT 08/11/24 17:17 IMPRESSION: 1. Ascites seen in the pelvis, around the liver, right paracolic gutter and around the spleen. Possibility of subcapsular hematoma around the liver cannot be excluded. 2. Liver cirrhosis. 3. Fat stranding in the mesentery which may indicate inflammatory changes or edema. 4. Thickened wall of the small bowel in the area of the pelvis which may indicate enteritis. No air is seen in the wall. Ischemia cannot be excluded. This thickening is slightly more prominent than the previous study. Chest X-Ray 08/12/24 12:50 IMPRESSION: 1. Left PICC line tip at the midsuperior vena cava. 2. Elevation of the right hemidiaphragm with right basilar atelectasis, new since 07/30/2024 but seen on intervening CT from one day prior. Small Bowel X-Ray 08/14/24 17:24 IMPRESSION: 1. Dilated small bowel with contrast remaining within the dilated small bowel at 4 hours, consistent with adynamic ileus versus distal obstruction. Abdomen X-Ray 08/15/24 08:48 IMPRESSION: Dilated small bowel with contrast seen in the large bowel which may indicate partial obstruction. Follow-up advised. Labs Labs: Laboratory Results - last 24 hr 08/07/24 08/09/24 08/14/24 14:00 05:44 17:47 Sodium Potassium Chloride Carbon Dioxide Anion Gap BUN Creatinine Estim Creat Clear Calc Estimated GFR Glucose POC Capillary Glucose 281 H Calcium Phosphorus Triglycerides Alpha Fetoprotein 4.8 Urine Color Urine Appearance Urine pH Ur Specific [place] Urine Protein Urine Glucose (UA) Urine Ketones Ur Blood (Man) Urine Nitrate Urine Bilirubin Urine Urobilinogen Leukocyte Esterase Rfl Urine RBC Urine WBC Ur Squamous Epith Cells Urine Bacteria Urine Casts Peritoneal LDH TNP 08/14/24 08/14/24 08/14/24 18:08 20:23 23:57 Sodium Potassium Chloride Carbon Dioxide Anion Gap BUN Creatinine Estim Creat Clear Calc Estimated GFR Glucose POC Capillary Glucose 305 H 293 H Calcium Phosphorus Triglycerides Alpha Fetoprotein Urine Color Dark yellow Urine Appearance Clear Urine pH 5.5 Ur Specific [place] 1.042 H Urine Protein 2+ H Urine Glucose (UA) 2+ H Urine Ketones Trace H Ur Blood (Man) Negative Urine Nitrate Negative Urine Bilirubin 2+ H Urine Urobilinogen 1.0 Leukocyte Esterase Rfl Negative Urine RBC 0-2 Urine WBC 0-5 Ur Squamous Epith Cells Occasional Urine Bacteria None seen Urine Casts 3-5 Peritoneal LDH 08/15/24 08/15/24 04:17 12:15 Sodium 143 Potassium 3.6 Chloride 103 Carbon Dioxide 36 H Anion Gap 4 BUN 23 H Creatinine 0.70 Estim Creat Clear Calc 100 Estimated GFR > 60 Glucose 233 H POC Capillary Glucose 285 H Calcium 8.1 L Phosphorus 3.8 Triglycerides 165 H Alpha Fetoprotein Urine Color Urine Appearance Urine pH Ur Specific [place] Urine Protein Urine Glucose (UA) Urine Ketones Ur Blood (Man) Urine Nitrate Urine Bilirubin Urine Urobilinogen Leukocyte Esterase Rfl Urine RBC Urine WBC Ur Squamous Epith Cells Urine Bacteria Urine Casts Peritoneal LDH
--- NOTE | 2024-08-15 13:49 | PM.IMPN ---
Progress Note: A&P Assessment and Plan (1) Ascites: Code(s): R18.8 - Other ascites Status: Acute (2) Abdominal pain: Code(s): R10.9 - Unspecified abdominal pain Status: Acute (3) Enteritis: Code(s): K52.9 - Noninfective gastroenteritis and colitis, unspecified Status: Acute (4) Diabetes mellitus: Code(s): E11.9 - Type 2 diabetes mellitus without complications Status: Acute (5) Alcohol abuse: Code(s): F10.10 - Alcohol abuse, uncomplicated Status: Acute (6) Hypertension: Code(s): I10 - Essential (primary) hypertension Status: Acute (7) Liver cirrhosis, alcoholic: Code(s): K70.30 - Alcoholic cirrhosis of liver without ascites Status: Acute (8) BPH (benign prostatic hyperplasia): Code(s): N40.0 - Benign prostatic hyperplasia without lower urinary tract symptoms Status: Acute (9) Hypothyroidism: Code(s): E03.9 - Hypothyroidism, unspecified Status: Acute Plan this is a 68-year-old male who presents with abdominal pain. Abdomen x-ray showing mildly dilated loops of small bowel. CT abdomen pelvis shows ascites with peritoneal noted laterally consistent with carcinomatosis, wall thickening of the distal Small bowel and liver cirrhosis. Paracentesis in the ER had bloody fluid and removal of 800 mL of dark reddish fluid.. peritoneal Cell count36 K WBC 2 K with 20 PMNs. Absolute PMNs 400. Two hundred fifty-six corrected for RBCs. Since more than 2:50 p.m. and cells treated as SBP with Rocephin. G stain showing WBCs but no organisms. Blood culture no growth. Right upper quadrant ultrasound with cirrhosis. 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 CEA elevated. CA 19 9 normal. GI has been consulted. GI consulted with recommended diagnostic laparoscopy. General surgery was consulted. however deferred laparoscopic evaluation. Await GI workup may need colonoscopy evaluation however due to current ileus this is not feasible. Undergoing PET-CT is an option however this is not done as an inpatient here. Oncology consulted. CT chest for staging performed which did not show any other metastatic lesions. Status post therapeutic paracentesis with removal of 4.4 L 08/11/2024. NG tube placement for ileus. Still ongoing with large NG output. Received Dulcolax suppository x1 08/12/2024. Repeat x-ray with possible small-bowel obstruction. Reconsulted General surgery. Continue bowel rest NG decompression and IV analgesics. Small-bowel follow-through with dilated small bowel and contrast remaining in the done did small-bowel at 4:00 a.m.. Repeat x-ray this a.m. with noted contrast seen in large bowel which may indicate partial obstruction. General surgery still suggest evaluation by surgical oncology team at [facility] for further treatment of his condition. Awaiting bed placement Currently on IV nutrition TPN [facility] has accepted the patient for further treatment as well Awaiting bed Availability. AFP pending, CEA elevated, CA [address] scan showing thickening of distal small bowel. IV Zosyn leukocytosis improving Diabetes mellitus A1c 9. On Lantus and NovoLog Alcohol abuse on CIWA protocol Librium and Ativan as needed Hypertension Liver cirrhosis due to alcohol BPH Hypothyroidism DVT prophylaxis SCDs Code status full code Subjective Date/time seen: 08/15/24 13:49 Interval history: No overnight events. Abdomen is still sore. NG output still significant. Small-bowel follow-through reviewed. Small amount of flatus but no bowel movement. Review of Systems Review of Systems: All systems reviewed & are unremarkable except as noted in HPI and below Exam Narrative: GENERAL: Pleasant, in no acute distress. Well-nourished. - EYES: EOMI. Anicteric. - HENT: Moist mucous membranes. NG tube in situ with bilious drainage in the canister - LUNGS: Clear to auscultation bilaterally, no wheezing, rhonchi, or rales. - CARDIOVASCULAR: Regular rate and rhythm. No murmur. No JVD. - ABDOMEN: Soft, lower abdominal tender and severely distended. No palpable masses. - EXTREMITIES: No edema. Peripheral pulses 2+. Non-tender. - NEUROLOGIC: No focal neurological deficits. CN II-XII grossly intact. - PSYCHIATRIC: Awake, Alert and oriented x 3. Appropriate mood and affect. - SKIN: No rashes or lesions. Warm. Objective Data Vital Signs Vital Signs: Vital Signs - 24 hr 08/14/24 14:00 08/14/24 18:00 08/14/24 20:37 Temperature 96.7 F L 96.7 F L 96.9 F L Pulse Rate 88 107 H 99 Respiratory Rate 18 20 20 Blood Pressure 131/81 137/88 148/93 H Pulse Oximetry 96 96 93 Oxygen Delivery 08/14/24 20:00 08/15/24 04:29 08/15/24 04:28 Temperature 97.4 F L 97.4 F L Pulse Rate 95 95 Respiratory Rate 20 20 Blood Pressure 149/89 H 149/89 H Pulse Oximetry 92 92 Oxygen Delivery Room Air 08/15/24 09:34 08/15/24 10:00 Temperature 97.6 F Pulse Rate 85 Respiratory Rate 16 Blood Pressure 145/89 H Pulse Oximetry 94 Oxygen Delivery Room Air Intake/Output Intake/Output: Intake & Output 08/13/24 08/13/24 08/14/24 08/15/24 00:59 23:59 23:59 23:59 Intake Total 3164.7 1287.3 Output Total 3950 1200 Balance -785.3 87.3 Meds/Results Medications: Active Medications Generic Name Dose Route Start Last Admin Trade Name Freq PRN Reason Stop Dose Admin Acetaminophen 650 mg 08/07/24 17:40 Acetaminophen 325 Mg Tablet PO Q4H PRN Mild Pain (1-3) or Fever Hydrocodone Bitart/Acetaminophen 1 tab 08/07/24 15:49 08/10/24 12:46 Hydrocodone/Acetaminophen (*Crx) 5-325 Mg Tablet PO 1 tab Q4H PRN Administration Pain Rated 4-6 Al Hydrox/Mg Hydrox/Simethicone 30 ml 08/15/24 13:00 Mag Hydrox/Al Hydrox/Simeth 30 Ml Udc FEED TUBE Q8HR [facility] Chlordiazepoxide HCl 25 mg 08/08/24 12:53 Chlordiazepoxide (*Crx) 25 Mg Capsule PO Q6H PRN Withdrawal CIWA 8-15 Dextrose 12.5 gm 08/07/24 22:17 Dextrose 50% 25 Gm/50 Ml Syringe IV PUSH PRN PRN Hypoglycemia Protocol Docusate Sodium 100 mg 08/08/24 09:00 08/15/24 09:45 Docusate Sodium 100 Mg Capsule PO 100 mg BID MEGGAN Administration Finasteride 5 mg 08/08/24 09:00 08/14/24 15:23 Finasteride 5 Mg Tablet PO Not Given DAILY MEGGAN Folic Acid 1 mg 08/15/24 09:00 08/15/24 09:44 Folic Acid 1 Mg/0.2 Ml Inj IV PUSH 1 mg QAM MEGGAN Administration Glucagon 1 mg 08/07/24 22:17 Glucagon For Inj 1 Mg Vial IM PRN PRN Hypoglycemia Protocol Glucose 15 gm 08/07/24 22:17 Glucose Oral Gel 15 Gm Of Glucse In 37.5 Gm Tube PO PRN PRN Hypoglycemia Protocol Dextrose 1,000 mls @ 100 mls/hr 08/07/24 22:17 Dextrose 5% 1,000 Ml IVPB PRN PRN Hypoglycemia Protocol Piperacillin/Tazobactam/Dextrose 3.375 gm in 50 mls @ 100 mls/hr 08/09/24 11:00 08/15/24 12:07 Zosyn 3.375 Gm/Ns 50 Ml IVPB 08/18/24 23:59 100 mls/hr Q6HR MEGGAN Administration Sodium Chloride 1,000 mls @ 40 mls/hr 08/10/24 16:30 08/14/24 17:53 Normal Saline Iv IV CONT 40 mls/hr .Q24H MEGGAN Administration Dextrose 1,000 mls @ 50 mls/hr 08/12/24 11:57 Dextrose 10% IV CONT .Q20H PRN if PN is interrupted Multivitamins 1.25 ml/ 1,002.5 mls @ 40 mls/hr 08/12/24 13:00 08/15/24 12:11 Multivitamins 1.25 ml/ Amino IV CONT 40 mls/hr Acids/Electrolytes/Dextrose .Q24H MEGGAN Administration Protocol Fat Emulsion Intravenous 250 mls @ 20.833 mls/hr 08/12/24 12:00 08/15/24 12:12 Lipids 20% IVPB 20.8 mls/hr Q24H MEGGAN Administration Insulin Aspart 3 - 6 units 08/10/24 18:00 08/15/24 12:41 Insulin Aspart (*Bkc) 100 Units/Ml SUB-Q 4 units Q6H MEGGAN Administration Protocol Insulin Glargine 16 units 08/14/24 21:00 08/14/24 20:51 Insulin Glargine (*Bkc) 100 Units/Ml SUB-Q 16 units HS MEGGAN Administration Levothyroxine Sodium 25 mcg 08/14/24 09:00 08/14/24 11:48 Levothyroxine Sodium Inj 100 Mcg/5 Ml Vial IV PUSH 25 mcg Q48H MEGGAN Administration Lorazepam 2 mg 08/08/24 07:42 08/08/24 20:35 Lorazepam Inj (*Crx) 2 Mg/Ml Vial IV PUSH 2 mg Q4H PRN Administration CIWA >15 Morphine Sulfate 2 mg 08/11/24 17:56 08/15/24 09:34 Morphine Sulfate (*Crx) 2 Mg/Ml Inj IV PUSH 2 mg Q2H PRN Administration Pain Rated 7-10 Ondansetron HCl 4 mg 08/07/24 15:49 08/13/24 20:27 Ondansetron Inj 4 Mg/2 Ml Vial IV PUSH 4 mg Q4H PRN Administration Nausea Sodium Chloride 10 ml 08/12/24 14:00 08/15/24 05:11 Central Line Flush IV PUSH 10 ml Q8HR MEGGAN Administration Sodium Chloride 10 ml 08/12/24 13:02 Central Line Flush IV PUSH PRN PRN with TPN bag changes Sodium Chloride 20 ml 08/12/24 13:02 08/13/24 05:19 Central Line Flush IV PUSH 20 ml PRN PRN Administration after blood draws Thiamine HCl 100 mg 08/15/24 09:00 08/15/24 09:43 Thiamine Hcl 200 Mg/2 Ml Vial IV PUSH 100 mg QAM MEGGAN Administration Radiology Results: ITS Impressions Upper Quadrant Ultrasound 08/08/24 20:04 IMPRESSION: Cirrhosis. NG Tube Placement 08/10/24 15:41 IMPRESSION: 1. Successful fluoroscopic guided placement of a nasogastric tube which is in expected position with distal tip and proximal side port in the body of the stomach. Chest CT 08/11/24 10:56 IMPRESSION: 1. Peritoneal carcinomatosis. Moderate volume of ascites. 2. Cirrhosis of the liver. Paracentesis Ultrasound 08/11/24 12:36 IMPRESSION: 1. Successful ultrasound-guided paracentesis yielding 4400 mL of reddish fluid. Abdomen/Pelvis CT 08/11/24 17:17 IMPRESSION: 1. Ascites seen in the pelvis, around the liver, right paracolic gutter and around the spleen. Possibility of subcapsular hematoma around the liver cannot be excluded. 2. Liver cirrhosis. 3. Fat stranding in the mesentery which may indicate inflammatory changes or edema. 4. Thickened wall of the small bowel in the area of the pelvis which may indicate enteritis. No air is seen in the wall. Ischemia cannot be excluded. This thickening is slightly more prominent than the previous study. Chest X-Ray 08/12/24 12:50 IMPRESSION: 1. Left PICC line tip at the midsuperior vena cava. 2. Elevation of the right hemidiaphragm with right basilar atelectasis, new since 07/30/2024 but seen on intervening CT from one day prior. Small Bowel X-Ray 08/14/24 17:24 IMPRESSION: 1. Dilated small bowel with contrast remaining within the dilated small bowel at 4 hours, consistent with adynamic ileus versus distal obstruction. Abdomen X-Ray 08/15/24 08:48 IMPRESSION: Dilated small bowel with contrast seen in the large bowel which may indicate partial obstruction. Follow-up advised. Labs Labs: Laboratory Results - last 24 hr 08/07/24 08/14/24 08/14/24 14:00 17:47 18:08 Sodium Potassium Chloride Carbon Dioxide Anion Gap BUN Creatinine Estim Creat Clear Calc Estimated GFR Glucose POC Capillary Glucose 281 H Calcium Phosphorus Triglycerides Urine Color Dark yellow Urine Appearance Clear Urine pH 5.5 Ur Specific [place] 1.042 H Urine Protein 2+ H Urine Glucose (UA) 2+ H Urine Ketones Trace H Ur Blood (Man) Negative Urine Nitrate Negative Urine Bilirubin 2+ H Urine Urobilinogen 1.0 Leukocyte Esterase Rfl Negative Urine RBC 0-2 Urine WBC 0-5 Ur Squamous Epith Cells Occasional Urine Bacteria None seen Urine Casts 3-5 Peritoneal LDH TNP 08/14/24 08/14/24 08/15/24 20:23 23:57 04:17 Sodium 143 Potassium 3.6 Chloride 103 Carbon Dioxide 36 H Anion Gap 4 BUN 23 H Creatinine 0.70 Estim Creat Clear Calc 100 Estimated GFR > 60 Glucose 233 H POC Capillary Glucose 305 H 293 H Calcium 8.1 L Phosphorus 3.8 Triglycerides 165 H Urine Color Urine Appearance Urine pH Ur Specific [place] Urine Protein Urine Glucose (UA) Urine Ketones Ur Blood (Man) Urine Nitrate Urine Bilirubin Urine Urobilinogen Leukocyte Esterase Rfl Urine RBC Urine WBC Ur Squamous Epith Cells Urine Bacteria Urine Casts Peritoneal LDH 08/15/24 12:15 Sodium Potassium Chloride Carbon Dioxide Anion Gap BUN Creatinine Estim Creat Clear Calc Estimated GFR Glucose POC Capillary Glucose 285 H Calcium Phosphorus Triglycerides Urine Color Urine Appearance Urine pH Ur Specific [place] Urine Protein Urine Glucose (UA) Urine Ketones Ur Blood (Man) Urine Nitrate Urine Bilirubin Urine Urobilinogen Leukocyte Esterase Rfl Urine RBC Urine WBC Ur Squamous Epith Cells Urine Bacteria Urine Casts Peritoneal LDH
[2024-08-15] MEDS: MAG HYDROX/AL HYDROX/SIMETH 30 ML UDC FEED TUBE ×2 (14:19→20:23)
--- NOTE | 2024-08-15 14:34 | WPDGIPROGNO ---
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 He underwent small bowel series with hydro soluble contrast, showing marked delay and significantly distended bowel loops. The contrast eventually reached the colon as per KUB this morning. However, colonoscopy preparation is contraindicated at this moment. Awaiting [facility] for for palliative care under Surgical Oncology. Will continue TPN and NG suction for now. (2) Ascites: Code(s): R18.8 - Other ascites Status: Acute (3) Abdominal pain: Code(s): R10.9 - Unspecified abdominal pain Status: Acute (4) Ileus: Code(s): K56.7 - Ileus, unspecified Status: Acute Subjective Date/time seen: 08/15/24 14:34 Interval history: patient still distended and with abdominal pain and discomfort. Nasogastric content still significant, 800 cc only from this morning. Exam GI: GI Palp: Yes Firmness to palpation present (GI) and Yes Tenderness to palpation present (GI) Other: Very distended, diffusely tender. Objective Data Vital Signs Vital Signs: Vital Signs - 24 hr 08/14/24 18:00 08/14/24 20:37 08/14/24 20:00 Temperature 96.7 F L 96.9 F L Pulse Rate 107 H 99 Respiratory Rate 20 20 Blood Pressure 137/88 148/93 H Pulse Oximetry 96 93 Oxygen Delivery Room Air 08/15/24 04:29 08/15/24 04:28 08/15/24 09:34 Temperature 97.4 F L 97.4 F L Pulse Rate 95 95 Respiratory Rate 20 20 Blood Pressure 149/89 H 149/89 H Pulse Oximetry 92 92 Oxygen Delivery Room Air 08/15/24 10:00 Temperature 97.6 F Pulse Rate 85 Respiratory Rate 16 Blood Pressure 145/89 H Pulse Oximetry 94 Oxygen Delivery Intake/Output Intake/Output: Intake & Output 08/13/24 08/13/24 08/14/24 08/15/24 00:59 23:59 23:59 23:59 Intake Total 3164.7 1287.3 Output Total 3950 2000 Balance -785.3 -712.7 Meds/Results Medications: Active Medications Generic Name Dose Route Start Last Admin Trade Name Freq PRN Reason Stop Dose Admin Acetaminophen 650 mg 08/07/24 17:40 Acetaminophen 325 Mg Tablet PO Q4H PRN Mild Pain (1-3) or Fever Hydrocodone Bitart/Acetaminophen 1 tab 08/07/24 15:49 08/10/24 12:46 Hydrocodone/Acetaminophen (*Crx) 5-325 Mg Tablet PO 1 tab Q4H PRN Administration Pain Rated 4-6 Al Hydrox/Mg Hydrox/Simethicone 30 ml 08/15/24 13:00 08/15/24 14:19 Mag Hydrox/Al Hydrox/Simeth 30 Ml Udc FEED TUBE 30 ml Q8HR MEGGAN Administration Chlordiazepoxide HCl 25 mg 08/08/24 12:53 Chlordiazepoxide (*Crx) 25 Mg Capsule PO Q6H PRN Withdrawal CIWA 8-15 Dextrose 12.5 gm 08/07/24 22:17 Dextrose 50% 25 Gm/50 Ml Syringe IV PUSH PRN PRN Hypoglycemia Protocol Docusate Sodium 100 mg 08/08/24 09:00 08/15/24 09:45 Docusate Sodium 100 Mg Capsule PO 100 mg BID MEGGAN Administration Finasteride 5 mg 08/08/24 09:00 08/14/24 15:23 Finasteride 5 Mg Tablet PO Not Given DAILY MEGGAN Folic Acid 1 mg 08/15/24 09:00 08/15/24 09:44 Folic Acid 1 Mg/0.2 Ml Inj IV PUSH 1 mg QAM MEGGAN Administration Glucagon 1 mg 08/07/24 22:17 Glucagon For Inj 1 Mg Vial IM PRN PRN Hypoglycemia Protocol Glucose 15 gm 08/07/24 22:17 Glucose Oral Gel 15 Gm Of Glucse In 37.5 Gm Tube PO PRN PRN Hypoglycemia Protocol Dextrose 1,000 mls @ 100 mls/hr 08/07/24 22:17 Dextrose 5% 1,000 Ml IVPB PRN PRN Hypoglycemia Protocol Piperacillin/Tazobactam/Dextrose 3.375 gm in 50 mls @ 100 mls/hr 08/09/24 11:00 08/15/24 12:07 Zosyn 3.375 Gm/Ns 50 Ml IVPB 08/18/24 23:59 100 mls/hr Q6HR MEGGAN Administration Sodium Chloride 1,000 mls @ 40 mls/hr 08/10/24 16:30 08/14/24 17:53 Normal Saline Iv IV CONT 40 mls/hr .Q24H MEGGAN Administration Dextrose 1,000 mls @ 50 mls/hr 08/12/24 11:57 Dextrose 10% IV CONT .Q20H PRN if PN is interrupted Multivitamins 1.25 ml/ 1,002.5 mls @ 40 mls/hr 08/12/24 13:00 08/15/24 12:11 Multivitamins 1.25 ml/ Amino IV CONT 40 mls/hr Acids/Electrolytes/Dextrose .Q24H MEGGAN Administration Protocol Fat Emulsion Intravenous 250 mls @ 20.833 mls/hr 08/12/24 12:00 08/15/24 12:12 Lipids 20% IVPB 20.8 mls/hr Q24H MEGGAN Administration Insulin Aspart 3 - 6 units 08/10/24 18:00 08/15/24 12:41 Insulin Aspart (*Bkc) 100 Units/Ml SUB-Q 4 units Q6H MEGGAN Administration Protocol Insulin Glargine 16 units 08/14/24 21:00 08/14/24 20:51 Insulin Glargine (*Bkc) 100 Units/Ml SUB-Q 16 units HS MEGGAN Administration Levothyroxine Sodium 25 mcg 08/14/24 09:00 08/14/24 11:48 Levothyroxine Sodium Inj 100 Mcg/5 Ml Vial IV PUSH 25 mcg Q48H MEGGAN Administration Lorazepam 2 mg 08/08/24 07:42 08/08/24 20:35 Lorazepam Inj (*Crx) 2 Mg/Ml Vial IV PUSH 2 mg Q4H PRN Administration CIWA >15 Morphine Sulfate 2 mg 08/11/24 17:56 08/15/24 09:34 Morphine Sulfate (*Crx) 2 Mg/Ml Inj IV PUSH 2 mg Q2H PRN Administration Pain Rated 7-10 Ondansetron HCl 4 mg 08/07/24 15:49 08/13/24 20:27 Ondansetron Inj 4 Mg/2 Ml Vial IV PUSH 4 mg Q4H PRN Administration Nausea Sodium Chloride 10 ml 08/12/24 14:00 08/15/24 14:19 Central Line Flush IV PUSH 10 ml Q8HR MEGGAN Administration Sodium Chloride 10 ml 08/12/24 13:02 Central Line Flush IV PUSH PRN PRN with TPN bag changes Sodium Chloride 20 ml 08/12/24 13:02 08/13/24 05:19 Central Line Flush IV PUSH 20 ml PRN PRN Administration after blood draws Thiamine HCl 100 mg 08/15/24 09:00 08/15/24 09:43 Thiamine Hcl 200 Mg/2 Ml Vial IV PUSH 100 mg QAM MEGGAN Administration Radiology Results: ITS Impressions Upper Quadrant Ultrasound 08/08/24 20:04 IMPRESSION: Cirrhosis. NG Tube Placement 08/10/24 15:41 IMPRESSION: 1. Successful fluoroscopic guided placement of a nasogastric tube which is in expected position with distal tip and proximal side port in the body of the stomach. Chest CT 08/11/24 10:56 IMPRESSION: 1. Peritoneal carcinomatosis. Moderate volume of ascites. 2. Cirrhosis of the liver. Paracentesis Ultrasound 08/11/24 12:36 IMPRESSION: 1. Successful ultrasound-guided paracentesis yielding 4400 mL of reddish fluid. Abdomen/Pelvis CT 08/11/24 17:17 IMPRESSION: 1. Ascites seen in the pelvis, around the liver, right paracolic gutter and around the spleen. Possibility of subcapsular hematoma around the liver cannot be excluded. 2. Liver cirrhosis. 3. Fat stranding in the mesentery which may indicate inflammatory changes or edema. 4. Thickened wall of the small bowel in the area of the pelvis which may indicate enteritis. No air is seen in the wall. Ischemia cannot be excluded. This thickening is slightly more prominent than the previous study. Chest X-Ray 08/12/24 12:50 IMPRESSION: 1. Left PICC line tip at the midsuperior vena cava. 2. Elevation of the right hemidiaphragm with right basilar atelectasis, new since 07/30/2024 but seen on intervening CT from one day prior. Small Bowel X-Ray 08/14/24 17:24 IMPRESSION: 1. Dilated small bowel with contrast remaining within the dilated small bowel at 4 hours, consistent with adynamic ileus versus distal obstruction. Abdomen X-Ray 08/15/24 08:48 IMPRESSION: Dilated small bowel with contrast seen in the large bowel which may indicate partial obstruction. Follow-up advised. Labs Labs: Laboratory Results - last 24 hr 08/07/24 08/14/24 08/14/24 14:00 17:47 18:08 Sodium Potassium Chloride Carbon Dioxide Anion Gap BUN Creatinine Estim Creat Clear Calc Estimated GFR Glucose POC Capillary Glucose 281 H Calcium Phosphorus Triglycerides Urine Color Dark yellow Urine Appearance Clear Urine pH 5.5 Ur Specific [place] 1.042 H Urine Protein 2+ H Urine Glucose (UA) 2+ H Urine Ketones Trace H Ur Blood (Man) Negative Urine Nitrate Negative Urine Bilirubin 2+ H Urine Urobilinogen 1.0 Leukocyte Esterase Rfl Negative Urine RBC 0-2 Urine WBC 0-5 Ur Squamous Epith Cells Occasional Urine Bacteria None seen Urine Casts 3-5 Peritoneal LDH TNP 08/14/24 08/14/24 08/15/24 20:23 23:57 04:17 Sodium 143 Potassium 3.6 Chloride 103 Carbon Dioxide 36 H Anion Gap 4 BUN 23 H Creatinine 0.70 Estim Creat Clear Calc 100 Estimated GFR > 60 Glucose 233 H POC Capillary Glucose 305 H 293 H Calcium 8.1 L Phosphorus 3.8 Triglycerides 165 H Urine Color Urine Appearance Urine pH Ur Specific [place] Urine Protein Urine Glucose (UA) Urine Ketones Ur Blood (Man) Urine Nitrate Urine Bilirubin Urine Urobilinogen Leukocyte Esterase Rfl Urine RBC Urine WBC Ur Squamous Epith Cells Urine Bacteria Urine Casts Peritoneal LDH 08/15/24 12:15 Sodium Potassium Chloride Carbon Dioxide Anion Gap BUN Creatinine Estim Creat Clear Calc Estimated GFR Glucose POC Capillary Glucose 285 H Calcium Phosphorus Triglycerides Urine Color Urine Appearance Urine pH Ur Specific [place] Urine Protein Urine Glucose (UA) Urine Ketones Ur Blood (Man) Urine Nitrate Urine Bilirubin Urine Urobilinogen Leukocyte Esterase Rfl Urine RBC Urine WBC Ur Squamous Epith Cells Urine Bacteria Urine Casts Peritoneal LDH
[2024-08-15 18:07] LABS: Glucose Point of Care 246 mg/dl (65-105)
[2024-08-15 18:14] LABS: Glucose Point of Care 231 mg/dl (65-105)
[2024-08-15] MEDS: INSULIN GLARGINE (*BKC) 100 UNITS/ML 16 UNITS SUB-Q (20:29)
[2024-08-15] MEDS: ONDANSETRON INJ 4 MG/2 ML VIAL IV PUSH (23:29)
[2024-08-15] MEDS: SODIUM CHLORIDE 0.9% IV 1,000 ML 40 ML IV CONT (23:31)
[2024-08-16 00:44] LABS: Glucose Point of Care 193 mg/dl (65-105)
[2024-08-16] MEDS: MORPHINE SULFATE (*CRX) 2 MG/ML INJ IV PUSH ×6 (03:37→23:38)
[2024-08-16] MEDS: ONDANSETRON INJ 4 MG/2 ML VIAL IV PUSH ×2 (03:37→20:01)
[2024-08-16 05:09] VITALS: BP 140/89; PULSE 84; RESP 20; TEMP 36.5; O2SAT 92
[2024-08-16 05:32] LABS: Glucose Point of Care 238 mg/dl (65-105)
[2024-08-16] MEDS: PIPERACILLN/TAZ 3.375GM/NS50ML 3.375 GM/50 ML BAG IVPB ×4 (05:41→23:41)
[2024-08-16] MEDS: CENTRAL LINE FLUSH 10 ML IV PUSH ×3 (05:42→20:09)
[2024-08-16] MEDS: MAG HYDROX/AL HYDROX/SIMETH 30 ML UDC FEED TUBE ×3 (05:42→20:09)
[2024-08-16] MEDS: INSULIN ASPART (*BKC) 100 UNITS/ML SUB-Q ×4 (05:53→23:42)
[2024-08-16 05:59] LABS: Basophils Absolute Auto 0.1 K/mm3 (0.0-0.1); Basophils Percent Auto 0.7 % (0.2-1.2); Eosinophils Absolute Auto 0.2 K/mm3 (0-0.3); Hemoglobin 11.9 g/dL (14.0-18.0); Immature Granulocyte Absolute 0.06 K/mm3 (0.00-0.031); Immature Granulocyte Percent A 0.5 % (0-0.5); Lymphocytes Percent Auto 10.2 % (18.3-44.2); Mean Corpuscular HGB Conc 32.2 g/dl (32-36); Mean Corpuscular Volume 99.5 fl (80-100); Mean Platelet Volume 9.5 fl (7.4-10.4); Monocytes Absolute Auto 0.9 K/mm3 (0.1-0.6); Monocytes Percent Auto 7.2 % (2.6-8.5); Neutrophils Absolute Auto 9.4 K/mm3 (1.3-6.7); Neutrophils Percent Auto 79.4 % (45.5-73.1); Platelet Count Result 373 k/mm3 (150-375); Red Blood Count 3.72 M/mm3 (4.6-6.20); Red Cell Distribution Width 13.2 % (11.5-14.5); White Blood Count 11.8 K/mm3 (4.5-10.0)
[2024-08-16 06:09] LABS: Alanine Aminotransferase 23 U/L (6-50); Albumin Level 2.8 g/dL (3.5-5.1); Alkaline Phosphatase 68 U/L (38-126); Anion Gap 2 mmol/L (4-12); Aspartate Amino Transferase 34 U/L (17-59); Bilirubin,Total 0.9 mg/dL (0.2-1.3); Blood Urea Nitrogen 22 mg/dL (9-20); Calcium 7.9 mg/dL (8.4-10.2); Carbon Dioxide 37 mmol/L (22-30); Chloride 102 mmol/L (98-107); Estimated CRCL calculation 88 ml/min; Estimated Glomerular Filt Rate > 60; Glucose 217 mg/dL (65-110); Magnesium 1.9 mg/dL (1.6-2.3); Phosphorus 3.9 mg/dL (2.5-4.5); Potassium 3.2 mmol/L (3.4-5.0); Sodium 141 mmol/L (137-145)
[2024-08-16 08:40] LABS: Glucose Point of Care 232 mg/dl (65-105)
[2024-08-16 10:00] VITALS: BP 155/81; PULSE 64; RESP 20; TEMP 36.6; O2SAT 97
[2024-08-16] MEDS: THIAMINE HCL 200 MG/2 ML VIAL 100 MG IV PUSH (10:04)
[2024-08-16] MEDS: LEVOTHYROXINE SODIUM INJ 100 MCG/5 ML VIAL 25 MCG IV PUSH (10:05)
[2024-08-16] MEDS: KCL 20 MEQ/SW 100 ML 100 ML 50 MEQ IVPB (10:16)
[2024-08-16 10:45] VITALS: O2SAT 94
[2024-08-16] MEDS: FOLIC ACID 1 MG/0.2 ML INJ IV PUSH (10:49)
--- NOTE | 2024-08-16 11:31 | P.PNGS_ITS ---
Progress Note: A&P Assessment and Plan (1) Ileus: Code(s): K56.7 - Ileus, unspecified Status: Acute Assessment and Plan: Small bowel series showed no contrast reaching the colon at 4 hours and repeat KUB yesterday showed some contrast in the colon, consistent with a partial small bowel obstruction. This could is likely related to his carcinomatosis. We would still recommend transfer to [facility] where he can be evaluated by Surgical Oncology, which he has been accepted to and is waiting for bed placement. Could try calling [facility] again with an update in his condition now that he has evidence of a bowel obstruction with his malignancy and still has no bowel function and is on TPN with NG tube decompression. 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 GI has deferred colonoscopy at this time due to his small bowel obstruction. Oncology following. His overall prognosis is guarded with only treatment options being palliative in nature. (3) Cirrhosis: Code(s): K74.60 - Unspecified cirrhosis of liver Status: Acute (4) Diabetes mellitus: Code(s): E11.9 - Type 2 diabetes mellitus without complications Status: Acute (5) Alcohol abuse: Code(s): F10.10 - Alcohol abuse, uncomplicated Status: Acute Plan I have discussed the patient's case and plan of care with Dr. Figueroa. Subjective Subjective Date/Time Seen: 08/16/24 11:31 Patient reports: no new complaints, flatus and no bowel movement Interval history: Still no BM. Abdominal pain the same as yesterday. No acute changes overnight. Still waiting for bed placement at [facility]. Exam Const: General: no acute distress and obese Nutritional Appearance: overweight GI: Inspection: distended and other (large rounded protuberant and distended abdomen) GI Palp: Yes Soft to palpation, Yes Tenderness to palpation present (GI) (Diffusely tender) and No Guarding due to palpation present (GI) (No peritoneal signs) Auscultation: Hypoactive bowel sounds present Objective Data Vital Signs Vital Signs: Vital Signs - 24 hr 08/15/24 14:38 08/15/24 19:02 08/15/24 19:58 Temperature 97.3 F L 97.8 F 97.7 F Pulse Rate 87 92 88 Respiratory Rate 20 16 20 Blood Pressure 147/92 H 149/94 H 151/83 H Pulse Oximetry 95 95 94 Oxygen Delivery 08/15/24 20:00 08/16/24 05:09 08/16/24 10:00 Temperature 97.7 F 97.8 F Pulse Rate 88 84 64 Respiratory Rate 20 20 20 Blood Pressure 140/89 155/81 H Pulse Oximetry 94 92 97 Oxygen Delivery Room Air Intake/Output Intake/Output: Intake & Output 08/13/24 08/14/24 08/15/24 08/16/24 23:59 23:59 23:59 23:59 Intake Total 3164.7 2387.3 50 Output Total 3950 2550 2000 [facility] -785.3 -162.7 -1950 Meds/Results Medications: Active Medications Generic Name Dose Route Start Last Admin Trade Name Freq PRN Reason Stop Dose Admin Acetaminophen 650 mg 08/07/24 17:40 Acetaminophen 325 Mg Tablet PO Q4H PRN Mild Pain (1-3) or Fever Hydrocodone Bitart/Acetaminophen 1 tab 08/07/24 15:49 08/10/24 12:46 Hydrocodone/Acetaminophen (*Crx) 5-325 Mg Tablet PO 1 tab Q4H PRN Administration Pain Rated 4-6 Al Hydrox/Mg Hydrox/Simethicone 30 ml 08/15/24 13:00 08/16/24 05:42 Mag Hydrox/Al Hydrox/Simeth 30 Ml Udc FEED TUBE 30 ml Q8HR MEGGAN Administration Chlordiazepoxide HCl 25 mg 08/08/24 12:53 Chlordiazepoxide (*Crx) 25 Mg Capsule PO Q6H PRN Withdrawal CIWA 8-15 Dextrose 12.5 gm 08/07/24 22:17 Dextrose 50% 25 Gm/50 Ml Syringe IV PUSH PRN PRN Hypoglycemia Protocol Docusate Sodium 100 mg 08/08/24 09:00 08/16/24 10:04 Docusate Sodium 100 Mg Capsule PO Not Given BID MEGGAN Finasteride 5 mg 08/08/24 09:00 08/14/24 15:23 Finasteride 5 Mg Tablet PO Not Given DAILY MEGGAN Folic Acid 1 mg 08/15/24 09:00 08/16/24 10:49 Folic Acid 1 Mg/0.2 Ml Inj IV PUSH 1 mg QAM MEGGAN Administration Glucagon 1 mg 08/07/24 22:17 Glucagon For Inj 1 Mg Vial IM PRN PRN Hypoglycemia Protocol Glucose 15 gm 08/07/24 22:17 Glucose Oral Gel 15 Gm Of Glucse In 37.5 Gm Tube PO PRN PRN Hypoglycemia Protocol Dextrose 1,000 mls @ 100 mls/hr 08/07/24 22:17 Dextrose 5% 1,000 Ml IVPB PRN PRN Hypoglycemia Protocol Piperacillin/Tazobactam/Dextrose 3.375 gm in 50 mls @ 100 mls/hr 08/09/24 11:00 08/16/24 05:41 Zosyn 3.375 Gm/Ns 50 Ml IVPB 08/18/24 23:59 100 mls/hr Q6HR MEGGAN Administration Sodium Chloride 1,000 mls @ 40 mls/hr 08/10/24 16:30 08/15/24 23:31 Normal Saline Iv IV CONT 40 mls/hr .Q24H MEGGAN Administration Dextrose 1,000 mls @ 50 mls/hr 08/12/24 11:57 Dextrose 10% IV CONT .Q20H PRN if PN is interrupted Multivitamins 1.25 ml/ 1,002.5 mls @ 40 mls/hr 08/12/24 13:00 08/15/24 12:11 Multivitamins 1.25 ml/ Amino IV CONT 40 mls/hr Acids/Electrolytes/Dextrose .Q24H MEGGAN Administration Protocol Fat Emulsion Intravenous 250 mls @ 20.833 mls/hr 08/12/24 12:00 08/15/24 12:12 Lipids 20% IVPB 20.8 mls/hr Q24H MEGGAN Administration Insulin Aspart 3 - 6 units 08/10/24 18:00 08/16/24 05:53 Insulin Aspart (*Bkc) 100 Units/Ml SUB-Q 3 units Q6H MEGGAN Administration Protocol Insulin Glargine 16 units 08/14/24 21:00 08/15/24 20:29 Insulin Glargine (*Bkc) 100 Units/Ml SUB-Q 16 units HS MEGGAN Administration Levothyroxine Sodium 25 mcg 08/14/24 09:00 08/16/24 10:05 Levothyroxine Sodium Inj 100 Mcg/5 Ml Vial IV PUSH 25 mcg Q48H MEGGAN Administration Lorazepam 2 mg 08/08/24 07:42 08/08/24 20:35 Lorazepam Inj (*Crx) 2 Mg/Ml Vial IV PUSH 2 mg Q4H PRN Administration CIWA >15 Morphine Sulfate 2 mg 08/11/24 17:56 08/16/24 10:12 Morphine Sulfate (*Crx) 2 Mg/Ml Inj IV PUSH 2 mg Q2H PRN Administration Pain Rated 7-10 Ondansetron HCl 4 mg 08/07/24 15:49 08/16/24 03:37 Ondansetron Inj 4 Mg/2 Ml Vial IV PUSH 4 mg Q4H PRN Administration Nausea Sodium Chloride 10 ml 08/12/24 14:00 08/16/24 05:42 Central Line Flush IV PUSH 10 ml Q8HR MEGGAN Administration Sodium Chloride 10 ml 08/12/24 13:02 Central Line Flush IV PUSH PRN PRN with TPN bag changes Sodium Chloride 20 ml 08/12/24 13:02 08/13/24 05:19 Central Line Flush IV PUSH 20 ml PRN PRN Administration after blood draws Thiamine HCl 100 mg 08/15/24 09:00 08/16/24 10:04 Thiamine Hcl 200 Mg/2 Ml Vial IV PUSH 100 mg QAM MEGGAN Administration Radiology Results: ITS Impressions Upper Quadrant Ultrasound 08/08/24 20:04 IMPRESSION: Cirrhosis. NG Tube Placement 08/10/24 15:41 IMPRESSION: 1. Successful fluoroscopic guided placement of a nasogastric tube which is in expected position with distal tip and proximal side port in the body of the stomach. Chest CT 08/11/24 10:56 IMPRESSION: 1. Peritoneal carcinomatosis. Moderate volume of ascites. 2. Cirrhosis of the liver. Paracentesis Ultrasound 08/11/24 12:36 IMPRESSION: 1. Successful ultrasound-guided paracentesis yielding 4400 mL of reddish fluid. Abdomen/Pelvis CT 08/11/24 17:17 IMPRESSION: 1. Ascites seen in the pelvis, around the liver, right paracolic gutter and around the spleen. Possibility of subcapsular hematoma around the liver cannot be excluded. 2. Liver cirrhosis. 3. Fat stranding in the mesentery which may indicate inflammatory changes or edema. 4. Thickened wall of the small bowel in the area of the pelvis which may indicate enteritis. No air is seen in the wall. Ischemia cannot be excluded. This thickening is slightly more prominent than the previous study. Chest X-Ray 08/12/24 12:50 IMPRESSION: 1. Left PICC line tip at the midsuperior vena cava. 2. Elevation of the right hemidiaphragm with right basilar atelectasis, new since 07/30/2024 but seen on intervening CT from one day prior. Small Bowel X-Ray 08/14/24 17:24 IMPRESSION: 1. Dilated small bowel with contrast remaining within the dilated small bowel at 4 hours, consistent with adynamic ileus versus distal obstruction. Abdomen X-Ray 08/15/24 08:48 IMPRESSION: Dilated small bowel with contrast seen in the large bowel which may indicate partial obstruction. Follow-up advised. Labs Labs: Laboratory Results - last 24 hr 08/07/24 08/15/24 08/15/24 14:00 04:32 12:15 WBC RBC Hgb Hct MCV MCH MCHC RDW Plt Count MPV Immature Gran % (Auto) Neut % (Auto) Lymph % (Auto) [place] % (Auto) Eos % (Auto) Baso % (Auto) Lymph # (Auto) [place] # (Auto) Eos # (Auto) Baso # (Auto) Abs Immat Gran (auto) Absolute Neuts (auto) Absolute Nucleated RBC Nucleated RBC % Sodium Potassium Chloride Carbon Dioxide Anion Gap BUN Creatinine Estim Creat Clear Calc Estimated GFR Glucose POC Capillary Glucose 231 H 285 H Calcium Phosphorus Magnesium Total Bilirubin AST ALT Alkaline Phosphatase Total Protein Albumin Peritoneal LDH TNP 08/15/24 08/16/24 08/16/24 18:03 00:27 05:12 WBC RBC Hgb Hct MCV MCH MCHC RDW Plt Count MPV Immature Gran % (Auto) Neut % (Auto) Lymph % (Auto) [place] % (Auto) Eos % (Auto) Baso % (Auto) Lymph # (Auto) [place] # (Auto) Eos # (Auto) Baso # (Auto) Abs Immat Gran (auto) Absolute Neuts (auto) Absolute Nucleated RBC Nucleated RBC % Sodium Potassium Chloride Carbon Dioxide Anion Gap BUN Creatinine Estim Creat Clear Calc Estimated GFR Glucose POC Capillary Glucose 246 H 193 H 238 H Calcium Phosphorus Magnesium Total Bilirubin AST ALT Alkaline Phosphatase Total Protein Albumin Peritoneal LDH 08/16/24 08/16/24 05:51 08:35 WBC 11.8 H RBC 3.72 L Hgb 11.9 L Hct 37.0 L MCV 99.5 MCH 32.0 MCHC 32.2 RDW 13.2 Plt Count 373 MPV 9.5 Immature Gran % (Auto) 0.5 Neut % (Auto) 79.4 H Lymph % (Auto) 10.2 L [place] % (Auto) 7.2 Eos % (Auto) 2.0 Baso % (Auto) 0.7 Lymph # (Auto) 1.20 [place] # (Auto) 0.9 H Eos # (Auto) 0.2 Baso # (Auto) 0.1 Abs Immat Gran (auto) 0.06 H Absolute Neuts (auto) 9.4 H Absolute Nucleated RBC 0.000 Nucleated RBC % 0.0 Sodium 141 Potassium 3.2 L Chloride 102 Carbon Dioxide 37 H Anion Gap 2 L BUN 22 H Creatinine 0.80 Estim Creat Clear Calc 88 Estimated GFR > 60 Glucose 217 H POC Capillary Glucose 232 H Calcium 7.9 L Phosphorus 3.9 Magnesium 1.9 Total Bilirubin 0.9 AST 34 ALT 23 Alkaline Phosphatase 68 Total Protein 6.0 L Albumin 2.8 L Peritoneal LDH
[2024-08-16 12:22] LABS: Glucose Point of Care 242 mg/dl (65-105)
[2024-08-16] MEDS: FAT EMULSIONS IV 20% 250 ML 20.8 ML IVPB (12:36)
[2024-08-16] MEDS: MULTIVITAMINS IV CONT (13:24)
[2024-08-16] MEDS: [UNRECOGNIZED DRUG - OTHER] IV CONT (13:24)
[2024-08-16 13:55] VITALS: BP 151/90; PULSE 82; RESP 18; TEMP 36.6; O2SAT 94
--- NOTE | 2024-08-16 15:54 | P.PNGI_ITS ---
Progress Note: A&P Assessment and Plan (1) Ileus: Code(s): K56.7 - Ileus, unspecified Status: Acute Assessment and Plan: Patient's ileus versus mechanical obstruction secondary to peritoneal carcinomatosis. Awaiting transfer to to get specialized surgical Oncology consultation. The patient's current status and prognosis is poor. 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 - Malignant neoplasm of abdomen Status: Acute (3) Alcohol abuse: Code(s): F10.10 - Alcohol abuse, uncomplicated Status: Acute (4) Ascites: Code(s): R18.8 - Other ascites Status: Acute Time Spent With Patient Time with patient: less than 15 minutes Subjective Date/time seen: 08/16/24 15:54 Interval history: Pt continues with the same satus, still obstructed with tense abdomen and significant NG tube drainage Review of Systems Review of Systems: All systems reviewed & are unremarkable except as noted in HPI and below Exam Narrative: no changes from the day prior Objective Data Vital Signs Vital Signs: Vital Signs - 24 hr 08/15/24 19:02 08/15/24 19:58 08/15/24 20:00 Temperature 97.8 F 97.7 F Pulse Rate 92 88 88 Respiratory Rate 16 20 20 Blood Pressure 149/94 H 151/83 H Pulse Oximetry 95 94 94 Oxygen Delivery Room Air 08/16/24 05:09 08/16/24 10:00 08/16/24 13:55 Temperature 97.7 F 97.8 F 97.9 F Pulse Rate 84 64 82 Respiratory Rate 20 20 18 Blood Pressure 140/89 155/81 H 151/90 H Pulse Oximetry 92 97 94 Oxygen Delivery Intake/Output Intake/Output: Intake & Output 08/13/24 08/14/24 08/15/24 08/16/24 23:59 23:59 23:59 23:59 Intake Total 3164.7 2387.3 1352.5 Output Total 3950 2550 1999 Balance -785.3 -162.7 -647.5 Meds/Results Medications: Active Medications Generic Name Dose Route Start Last Admin Trade Name Freq PRN Reason Stop Dose Admin Acetaminophen 650 mg 08/07/24 17:40 Acetaminophen 325 Mg Tablet PO Q4H PRN Mild Pain (1-3) or Fever Hydrocodone Bitart/Acetaminophen 1 tab 08/07/24 15:49 08/10/24 12:46 Hydrocodone/Acetaminophen (*Crx) 5-325 Mg Tablet PO 1 tab Q4H PRN Administration Pain Rated 4-6 Al Hydrox/Mg Hydrox/Simethicone 30 ml 08/15/24 13:00 08/16/24 13:23 Mag Hydrox/Al Hydrox/Simeth 30 Ml Udc FEED TUBE 30 ml Q8HR MEGGAN Administration Chlordiazepoxide HCl 25 mg 08/08/24 12:53 Chlordiazepoxide (*Crx) 25 Mg Capsule PO Q6H PRN Withdrawal CIWA 8-15 Dextrose 12.5 gm 08/07/24 22:17 Dextrose 50% 25 Gm/50 Ml Syringe IV PUSH PRN PRN Hypoglycemia Protocol Docusate Sodium 100 mg 08/08/24 09:00 08/16/24 10:04 Docusate Sodium 100 Mg Capsule PO Not Given BID MEGGAN Finasteride 5 mg 08/08/24 09:00 08/14/24 15:23 Finasteride 5 Mg Tablet PO Not Given DAILY MEGGAN Folic Acid 1 mg 08/15/24 09:00 08/16/24 10:49 Folic Acid 1 Mg/0.2 Ml Inj IV PUSH 1 mg QAM MEGGAN Administration Glucagon 1 mg 08/07/24 22:17 Glucagon For Inj 1 Mg Vial IM PRN PRN Hypoglycemia Protocol Glucose 15 gm 08/07/24 22:17 Glucose Oral Gel 15 Gm Of Glucse In 37.5 Gm Tube PO PRN PRN Hypoglycemia Protocol Dextrose 1,000 mls @ 100 mls/hr 08/07/24 22:17 Dextrose 5% 1,000 Ml IVPB PRN PRN Hypoglycemia Protocol Piperacillin/Tazobactam/Dextrose 3.375 gm in 50 mls @ 100 mls/hr 08/09/24 11:00 08/16/24 12:33 Zosyn 3.375 Gm/Ns 50 Ml IVPB 08/18/24 23:59 100 mls/hr Q6HR MEGGAN Administration Sodium Chloride 1,000 mls @ 40 mls/hr 08/10/24 16:30 08/15/24 23:31 Normal Saline Iv IV CONT 40 mls/hr .Q24H MEGGAN Administration Dextrose 1,000 mls @ 50 mls/hr 08/12/24 11:57 Dextrose 10% IV CONT .Q20H PRN if PN is interrupted Multivitamins 1.25 ml/ 1,002.5 mls @ 40 mls/hr 08/12/24 13:00 08/16/24 13:24 Multivitamins 1.25 ml/ Amino IV CONT 40 mls/hr Acids/Electrolytes/Dextrose .Q24H MEGGAN Administration Protocol Fat Emulsion Intravenous 250 mls @ 20.833 mls/hr 08/12/24 12:00 08/16/24 12:36 Lipids 20% IVPB 20.8 mls/hr Q24H MEGGAN Administration Insulin Aspart 3 - 6 units 08/10/24 18:00 08/16/24 12:37 Insulin Aspart (*Bkc) 100 Units/Ml SUB-Q 3 units Q6H MEGGAN Administration Protocol Insulin Glargine 16 units 08/14/24 21:00 08/15/24 20:29 Insulin Glargine (*Bkc) 100 Units/Ml SUB-Q 16 units HS MEGGAN Administration Levothyroxine Sodium 25 mcg 08/14/24 09:00 08/16/24 10:05 Levothyroxine Sodium Inj 100 Mcg/5 Ml Vial IV PUSH 25 mcg Q48H MEGGAN Administration Lorazepam 2 mg 08/08/24 07:42 08/08/24 20:35 Lorazepam Inj (*Crx) 2 Mg/Ml Vial IV PUSH 2 mg Q4H PRN Administration CIWA >15 Morphine Sulfate 2 mg 08/11/24 17:56 08/16/24 13:48 Morphine Sulfate (*Crx) 2 Mg/Ml Inj IV PUSH 2 mg Q2H PRN Administration Pain Rated 7-10 Ondansetron HCl 4 mg 08/07/24 15:49 08/16/24 03:37 Ondansetron Inj 4 Mg/2 Ml Vial IV PUSH 4 mg Q4H PRN Administration Nausea Sodium Chloride 10 ml 08/12/24 14:00 08/16/24 13:25 Central Line Flush IV PUSH 10 ml Q8HR MEGGAN Administration Sodium Chloride 10 ml 08/12/24 13:02 Central Line Flush IV PUSH PRN PRN with TPN bag changes Sodium Chloride 20 ml 08/12/24 13:02 08/13/24 05:19 Central Line Flush IV PUSH 20 ml PRN PRN Administration after blood draws Thiamine HCl 100 mg 08/15/24 09:00 08/16/24 10:04 Thiamine Hcl 200 Mg/2 Ml Vial IV PUSH 100 mg QAM MEGGAN Administration Radiology Results: ITS Impressions Upper Quadrant Ultrasound 08/08/24 20:04 IMPRESSION: Cirrhosis. NG Tube Placement 08/10/24 15:41 IMPRESSION: 1. Successful fluoroscopic guided placement of a nasogastric tube which is in expected position with distal tip and proximal side port in the body of the stomach. Chest CT 08/11/24 10:56 IMPRESSION: 1. Peritoneal carcinomatosis. Moderate volume of ascites. 2. Cirrhosis of the liver. Paracentesis Ultrasound 08/11/24 12:36 IMPRESSION: 1. Successful ultrasound-guided paracentesis yielding 4400 mL of reddish fluid. Abdomen/Pelvis CT 08/11/24 17:17 IMPRESSION: 1. Ascites seen in the pelvis, around the liver, right paracolic gutter and around the spleen. Possibility of subcapsular hematoma around the liver cannot be excluded. 2. Liver cirrhosis. 3. Fat stranding in the mesentery which may indicate inflammatory changes or edema. 4. Thickened wall of the small bowel in the area of the pelvis which may indicate enteritis. No air is seen in the wall. Ischemia cannot be excluded. This thickening is slightly more prominent than the previous study. Chest X-Ray 08/12/24 12:50 IMPRESSION: 1. Left PICC line tip at the midsuperior vena cava. 2. Elevation of the right hemidiaphragm with right basilar atelectasis, new since 07/30/2024 but seen on intervening CT from one day prior. Small Bowel X-Ray 08/14/24 17:24 IMPRESSION: 1. Dilated small bowel with contrast remaining within the dilated small bowel at 4 hours, consistent with adynamic ileus versus distal obstruction. Abdomen X-Ray 08/15/24 08:48 IMPRESSION: Dilated small bowel with contrast seen in the large bowel which may indicate partial obstruction. Follow-up advised. Labs Labs: Laboratory Results - last 24 hr 08/15/24 08/15/24 08/16/24 04:32 18:03 00:27 WBC RBC Hgb Hct MCV MCH MCHC RDW Plt Count MPV Immature Gran % (Auto) Neut % (Auto) Lymph % (Auto) [place] % (Auto) Eos % (Auto) Baso % (Auto) Lymph # (Auto) [place] # (Auto) Eos # (Auto) Baso # (Auto) Abs Immat Gran (auto) Absolute Neuts (auto) Absolute Nucleated RBC Nucleated RBC % Sodium Potassium Chloride Carbon Dioxide Anion Gap BUN Creatinine Estim Creat Clear Calc Estimated GFR Glucose POC Capillary Glucose 231 H 246 H 193 H Calcium Phosphorus Magnesium Total Bilirubin AST ALT Alkaline Phosphatase Total Protein Albumin 08/16/24 08/16/24 08/16/24 05:12 05:51 08:35 WBC 11.8 H RBC 3.72 L Hgb 11.9 L Hct 37.0 L MCV 99.5 MCH 32.0 MCHC 32.2 RDW 13.2 Plt Count 373 MPV 9.5 Immature Gran % (Auto) 0.5 Neut % (Auto) 79.4 H Lymph % (Auto) 10.2 L [place] % (Auto) 7.2 Eos % (Auto) 2.0 Baso % (Auto) 0.7 Lymph # (Auto) 1.20 [place] # (Auto) 0.9 H Eos # (Auto) 0.2 Baso # (Auto) 0.1 Abs Immat Gran (auto) 0.06 H Absolute Neuts (auto) 9.4 H Absolute Nucleated RBC 0.000 Nucleated RBC % 0.0 Sodium 141 Potassium 3.2 L Chloride 102 Carbon Dioxide 37 H Anion Gap 2 L BUN 22 H Creatinine 0.80 Estim Creat Clear Calc 88 Estimated GFR > 60 Glucose 217 H POC Capillary Glucose 238 H 232 H Calcium 7.9 L Phosphorus 3.9 Magnesium 1.9 Total Bilirubin 0.9 AST 34 ALT 23 Alkaline Phosphatase 68 Total Protein 6.0 L Albumin 2.8 L 08/16/24 12:15 WBC RBC Hgb Hct MCV MCH MCHC RDW Plt Count MPV Immature Gran % (Auto) Neut % (Auto) Lymph % (Auto) [place] % (Auto) Eos % (Auto) Baso % (Auto) Lymph # (Auto) [place] # (Auto) Eos # (Auto) Baso # (Auto) Abs Immat Gran (auto) Absolute Neuts (auto) Absolute Nucleated RBC Nucleated RBC % Sodium Potassium Chloride Carbon Dioxide Anion Gap BUN Creatinine Estim Creat Clear Calc Estimated GFR Glucose POC Capillary Glucose 242 H Calcium Phosphorus Magnesium Total Bilirubin AST ALT Alkaline Phosphatase Total Protein Albumin
--- NOTE | 2024-08-16 15:58 | P.PNIM_ITS ---
Progress Note: A&P Assessment and Plan (1) Ascites: Code(s): R18.8 - Other ascites Status: Acute (2) Abdominal pain: Code(s): R10.9 - Unspecified abdominal pain Status: Acute (3) Enteritis: Code(s): K52.9 - Noninfective gastroenteritis and colitis, unspecified Status: Acute (4) Diabetes mellitus: Code(s): E11.9 - Type 2 diabetes mellitus without complications Status: Acute (5) Alcohol abuse: Code(s): F10.10 - Alcohol abuse, uncomplicated Status: Acute (6) Hypertension: Code(s): I10 - Essential (primary) hypertension Status: Acute (7) Liver cirrhosis, alcoholic: Code(s): K70.30 - Alcoholic cirrhosis of liver without ascites Status: Acute (8) BPH (benign prostatic hyperplasia): Code(s): N40.0 - Benign prostatic hyperplasia without lower urinary tract symptoms Status: Acute (9) Hypothyroidism: Code(s): E03.9 - Hypothyroidism, unspecified Status: Acute Plan Patient presents with abdominal pain. Abdomen x-ray showing mildly dilated loops of small bowel. CT abdomen pelvis shows moderate ascites with peritoneal nodularity consistent with carcinomatosis, wall thickening of the distal small bowel and liver cirrhosis. Paracentesis in the ER had bloody fluid and removal of 800 mL of dark reddish fluid. peritoneal Cell count36 K WBC 2 K with 20 PMNs. Absolute PMNs 400. Two hundred fifty-six corrected for RBCs. Since more than 250 and cells treated as SBP with Rocephin. Gram stain showing WBCs but no organisms. Blood culture no growth. Right upper quadrant ultrasound with cirrhosis. 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 GI has been consulted and recommended diagnostic laparoscopy. General surgery was consulted. however deferred laparoscopic evaluation. Await GI workup may need colonoscopy evaluation however due to current ileus this is not feasible. Undergoing PET-CT is an option however this is not done as an inpatient here. Oncology consulted. CT chest for staging performed which did not show any other metastatic lesions. Status post therapeutic paracentesis with removal of 4.4 L 08/11/2024. NG tube placement for ileus. Still ongoing with large NG output. Received Dulcolax suppository x1 08/12/2024. Repeat x-ray with possible small- bowel obstruction. Reconsulted General surgery. Continue bowel rest NG decompression and IV analgesics. Small-bowel follow-through with dilated small bowel and contrast remaining in the done did small-bowel at 4hrs. Repeat x- raywith noted contrast seen in large bowel which may indicate partial obstruction. General surgery still suggest evaluation by surgical oncology team at [facility] for further treatment of his condition. Awaiting bed placement. Called [facility] but they declined to accept. Currently on IV nutrition with TPN [facility] has accepted the patient for further treatment as well Awaiting bed Availability. AFP normal, CEA elevated, CA [address] scan showing thickening of distal small bowel. IV Zosyn with leukocytosis improving Diabetes mellitus A1c 9. On Lantus Alcohol abuse - was on CIWA protocol Librium and Ativan as needed Hypertension Liver cirrhosis due to alcohol BPH Hypothyroidism DVT prophylaxis SCDs Code status full code Subjective Date/time seen: 08/16/24 15:58 Interval history: 68yo male with BPH, HTN and hypothyroidism here for abdominal pain. Assuming care Chart reviewed. No BM. Passing flatus. Abd paiin worse with movement. SLigh nausea but no vomiting. no CP or SOB Exam Narrative: AF 97.9 151/90 82 18 94% ra Gen - NARD HEENT - NGT secured and to suction Chest - CTA bilaterally, nml RR CV - RRR S1/S2 Abd - Soft, distended, hypoactive BS Ext - trace pedal edema. 2+ DP pulses Neuro - Alert and appropriate Psych - Nml mood and affect Skin - Warm and dry Objective Data Vital Signs Vital Signs: Vital Signs - 24 hr 08/15/24 19:02 08/15/24 19:58 08/15/24 20:00 Temperature 97.8 F 97.7 F Pulse Rate 92 88 88 Respiratory Rate 16 20 20 Blood Pressure 149/94 H 151/83 H Pulse Oximetry 95 94 94 Oxygen Delivery Room Air 08/16/24 05:09 08/16/24 10:00 08/16/24 13:55 Temperature 97.7 F 97.8 F 97.9 F Pulse Rate 84 64 82 Respiratory Rate 20 20 18 Blood Pressure 140/89 155/81 H 151/90 H Pulse Oximetry 92 97 94 Oxygen Delivery Intake/Output Intake/Output: Intake & Output 08/13/24 08/14/24 08/15/24 08/16/24 23:59 23:59 23:59 23:59 Intake Total 3164.7 2387.3 1352.5 Output Total 0332 7292 1999 Balance -785.3 -162.7 -647.5 Meds/Results Medications: Active Medications Generic Name Dose Route Start Last Admin Trade Name Freq PRN Reason Stop Dose Admin Acetaminophen 650 mg 08/07/24 17:40 Acetaminophen 325 Mg Tablet PO Q4H PRN Mild Pain (1-3) or Fever Hydrocodone Bitart/Acetaminophen 1 tab 08/07/24 15:49 08/10/24 12:46 Hydrocodone/Acetaminophen (*Crx) 5-325 Mg Tablet PO 1 tab Q4H PRN Administration Pain Rated 4-6 Al Hydrox/Mg Hydrox/Simethicone 30 ml 08/15/24 13:00 08/16/24 13:23 Mag Hydrox/Al Hydrox/Simeth 30 Ml Udc FEED TUBE 30 ml Q8HR MEGGAN Administration Chlordiazepoxide HCl 25 mg 08/08/24 12:53 Chlordiazepoxide (*Crx) 25 Mg Capsule PO Q6H PRN Withdrawal CIWA 8-15 Dextrose 12.5 gm 08/07/24 22:17 Dextrose 50% 25 Gm/50 Ml Syringe IV PUSH PRN PRN Hypoglycemia Protocol Docusate Sodium 100 mg 08/08/24 09:00 08/16/24 10:04 Docusate Sodium 100 Mg Capsule PO Not Given BID MEGGAN Finasteride 5 mg 08/08/24 09:00 08/14/24 15:23 Finasteride 5 Mg Tablet PO Not Given DAILY MEGGAN Folic Acid 1 mg 08/15/24 09:00 08/16/24 10:49 Folic Acid 1 Mg/0.2 Ml Inj IV PUSH 1 mg QAM MEGGAN Administration Glucagon 1 mg 08/07/24 22:17 Glucagon For Inj 1 Mg Vial IM PRN PRN Hypoglycemia Protocol Glucose 15 gm 08/07/24 22:17 Glucose Oral Gel 15 Gm Of Glucse In 37.5 Gm Tube PO PRN PRN Hypoglycemia Protocol Dextrose 1,000 mls @ 100 mls/hr 08/07/24 22:17 Dextrose 5% 1,000 Ml IVPB PRN PRN Hypoglycemia Protocol Piperacillin/Tazobactam/Dextrose 3.375 gm in 50 mls @ 100 mls/hr 08/09/24 11 :00 08/16/24 12:33 Zosyn 3.375 Gm/Ns 50 Ml IVPB 08/18/24 23:59 100 mls/hr Q6HR MEGGAN Administration Sodium Chloride 1,000 mls @ 40 mls/hr 08/10/24 16:30 08/15/24 23:31 Normal Saline Iv IV CONT 40 mls/hr .Q24H MEGGAN Administration Dextrose 1,000 mls @ 50 mls/hr 08/12/24 11:57 Dextrose 10% IV CONT .Q20H PRN if PN is interrupted Multivitamins 1.25 ml/ 1,002.5 mls @ 40 mls/hr 08/12/24 13:00 08/16/24 13:24 Multivitamins 1.25 ml/ Amino IV CONT 40 mls/hr Acids/Electrolytes/Dextrose .Q24H MEGGAN Administration Protocol Fat Emulsion Intravenous 250 mls @ 20.833 mls/hr 08/12/24 12:00 08/16/24 12:36 Lipids 20% IVPB 20.8 mls/hr Q24H MEGGAN Administration Insulin Aspart 3 - 6 units 08/10/24 18:00 08/16/24 12:37 Insulin Aspart (*Bkc) 100 Units/Ml SUB-Q 3 units Q6H MEGGAN Administration Protocol Insulin Glargine 16 units 08/14/24 21:00 08/15/24 20:29 Insulin Glargine (*Bkc) 100 Units/Ml SUB-Q 16 units HS MEGGAN Administration Levothyroxine Sodium 25 mcg 08/14/24 09:00 08/16/24 10:05 Levothyroxine Sodium Inj 100 Mcg/5 Ml Vial IV PUSH 25 mcg Q48H MEGGAN Administration Lorazepam 2 mg 08/08/24 07:42 08/08/24 20:35 Lorazepam Inj (*Crx) 2 Mg/Ml Vial IV PUSH 2 mg Q4H PRN Administration CIWA >15 Morphine Sulfate 2 mg 08/11/24 17:56 08/16/24 13:48 Morphine Sulfate (*Crx) 2 Mg/Ml Inj IV PUSH 2 mg Q2H PRN Administration Pain Rated 7-10 Ondansetron HCl 4 mg 08/07/24 15:49 08/16/24 03:37 Ondansetron Inj 4 Mg/2 Ml Vial IV PUSH 4 mg Q4H PRN Administration Nausea Sodium Chloride 10 ml 08/12/24 14:00 08/16/24 13:25 Central Line Flush IV PUSH 10 ml Q8HR MEGGAN Administration Sodium Chloride 10 ml 08/12/24 13:02 Central Line Flush IV PUSH PRN PRN with TPN bag changes Sodium Chloride 20 ml 08/12/24 13:02 08/13/24 05:19 Central Line Flush IV PUSH 20 ml PRN PRN Administration after blood draws Thiamine HCl 100 mg 08/15/24 09:00 08/16/24 10:04 Thiamine Hcl 200 Mg/2 Ml Vial IV PUSH 100 mg QAM MEGGAN Administration Radiology Results: ITS Impressions Upper Quadrant Ultrasound 08/08/24 20:04 IMPRESSION: Cirrhosis. NG Tube Placement 08/10/24 15:41 IMPRESSION: 1. Successful fluoroscopic guided placement of a nasogastric tube which is in expected position with distal tip and proximal side port in the body of the stomach. Chest CT 08/11/24 10:56 IMPRESSION: 1. Peritoneal carcinomatosis. Moderate volume of ascites. 2. Cirrhosis of the liver. Paracentesis Ultrasound 08/11/24 12:36 IMPRESSION: 1. Successful ultrasound-guided paracentesis yielding 4400 mL of reddish fluid. Abdomen/Pelvis CT 08/11/24 17:17 IMPRESSION: 1. Ascites seen in the pelvis, around the liver, right paracolic gutter and around the spleen. Possibility of subcapsular hematoma around the liver cannot be excluded. 2. Liver cirrhosis. 3. Fat stranding in the mesentery which may indicate inflammatory changes or edema. 4. Thickened wall of the small bowel in the area of the pelvis which may indicate enteritis. No air is seen in the wall. Ischemia cannot be excluded. This thickening is slightly more prominent than the previous study. Chest X-Ray 08/12/24 12:50 IMPRESSION: 1. Left PICC line tip at the midsuperior vena cava. 2. Elevation of the right hemidiaphragm with right basilar atelectasis, new since 07/30/2024 but seen on intervening CT from one day prior. Small Bowel X-Ray 08/14/24 17:24 IMPRESSION: 1. Dilated small bowel with contrast remaining within the dilated small bowel at 4 hours, consistent with adynamic ileus versus distal obstruction. Abdomen X-Ray 08/15/24 08:48 IMPRESSION: Dilated small bowel with contrast seen in the large bowel which may indicate partial obstruction. Follow-up advised. Labs Labs: Laboratory Results - last 24 hr 08/15/24 08/15/24 08/16/24 04:32 18:03 00:27 WBC RBC Hgb Hct MCV MCH MCHC RDW Plt Count MPV Immature Gran % (Auto) Neut % (Auto) Lymph % (Auto) [place] % (Auto) Eos % (Auto) Baso % (Auto) Lymph # (Auto) [place] # (Auto) Eos # (Auto) Baso # (Auto) Abs Immat Gran (auto) Absolute Neuts (auto) Absolute Nucleated RBC Nucleated RBC % Sodium Potassium Chloride Carbon Dioxide Anion Gap BUN Creatinine Estim Creat Clear Calc Estimated GFR Glucose POC Capillary Glucose 231 H 246 H 193 H Calcium Phosphorus Magnesium Total Bilirubin AST ALT Alkaline Phosphatase Total Protein Albumin 08/16/24 08/16/24 08/16/24 05:12 05:51 08:35 WBC 11.8 H RBC 3.72 L Hgb 11.9 L Hct 37.0 L MCV 99.5 MCH 32.0 MCHC 32.2 RDW 13.2 Plt Count 373 MPV 9.5 Immature Gran % (Auto) 0.5 Neut % (Auto) 79.4 H Lymph % (Auto) 10.2 L [place] % (Auto) 7.2 Eos % (Auto) 2.0 Baso % (Auto) 0.7 Lymph # (Auto) 1.20 [place] # (Auto) 0.9 H Eos # (Auto) 0.2 Baso # (Auto) 0.1 Abs Immat Gran (auto) 0.06 H Absolute Neuts (auto) 9.4 H Absolute Nucleated RBC 0.000 Nucleated RBC % 0.0 Sodium 141 Potassium 3.2 L Chloride 102 Carbon Dioxide 37 H Anion Gap 2 L BUN 22 H Creatinine 0.80 Estim Creat Clear Calc 88 Estimated GFR > 60 Glucose 217 H POC Capillary Glucose 238 H 232 H Calcium 7.9 L Phosphorus 3.9 Magnesium 1.9 Total Bilirubin 0.9 AST 34 ALT 23 Alkaline Phosphatase 68 Total Protein 6.0 L Albumin 2.8 L 08/16/24 12:15 WBC RBC Hgb Hct MCV MCH MCHC RDW Plt Count MPV Immature Gran % (Auto) Neut % (Auto) Lymph % (Auto) [place] % (Auto) Eos % (Auto) Baso % (Auto) Lymph # (Auto) [place] # (Auto) Eos # (Auto) Baso # (Auto) Abs Immat Gran (auto) Absolute Neuts (auto) Absolute Nucleated RBC Nucleated RBC % Sodium Potassium Chloride Carbon Dioxide Anion Gap BUN Creatinine Estim Creat Clear Calc Estimated GFR Glucose POC Capillary Glucose 242 H Calcium Phosphorus Magnesium Total Bilirubin AST ALT Alkaline Phosphatase Total Protein Albumin
[2024-08-16 16:54] LABS: Glucose Point of Care 203 mg/dl (65-105)
[2024-08-16 17:27] VITALS: BP 161/99; PULSE 84; RESP 18; TEMP 36.7; O2SAT 94
[2024-08-16] MEDS: BISACODYL 10 MG SUPPOSITORY RECTAL (17:38)
[2024-08-16] MEDS: BISACODYL 10 MG SUPPOSITORY (18:05)
--- NOTE | 2024-08-16 18:14 | PC.NURSE ---
Suppository readministered as patient excreted first dose prior to suppository being dissolved.
[2024-08-16] MEDS: INSULIN GLARGINE (*BKC) 100 UNITS/ML 20 UNITS SUB-Q (20:06)
[2024-08-16 20:28] LABS: Glucose Point of Care 217 mg/dl (65-105)
[2024-08-16 20:46] VITALS: BP 136/89; PULSE 80; RESP 20; TEMP 36.6; O2SAT 93
[2024-08-16 23:57] LABS: Glucose Point of Care 244 mg/dl (65-105)
[2024-08-17] MEDS: MORPHINE SULFATE (*CRX) 2 MG/ML INJ IV PUSH ×6 (02:45→23:41)
[2024-08-17] MEDS: SODIUM CHLORIDE 0.9% IV 1,000 ML 40 ML IV CONT (05:06)
[2024-08-17] MEDS: PIPERACILLN/TAZ 3.375GM/NS50ML 3.375 GM/50 ML BAG IVPB ×4 (05:06→23:41)
[2024-08-17] MEDS: INSULIN ASPART (*BKC) 100 UNITS/ML SUB-Q ×3 (05:11→17:48)
[2024-08-17] MEDS: MAG HYDROX/AL HYDROX/SIMETH 30 ML UDC FEED TUBE ×3 (05:13→21:46)
[2024-08-17] MEDS: CENTRAL LINE FLUSH 10 ML IV PUSH ×3 (05:17→21:46)
[2024-08-17 05:33] VITALS: BP 130/89; PULSE 85; RESP 20; TEMP 36.5; O2SAT 95
[2024-08-17 05:41] LABS: Glucose Point of Care 240 mg/dl (65-105)
[2024-08-17 06:00] LABS: Basophils Absolute Auto 0.1 K/mm3 (0.0-0.1); Basophils Percent Auto 1.1 % (0.2-1.2); Eosinophils Absolute Auto 0.4 K/mm3 (0-0.3); Eosinophils Percent Auto 3.1 % (0-4.4); Hemoglobin 11.9 g/dL (14.0-18.0); Immature Granulocyte Absolute 0.06 K/mm3 (0.00-0.031); Immature Granulocyte Percent A 0.5 % (0-0.5); Lymphocytes Absolute Auto 1.33 K/mm3 (0.9-3.2); Lymphocytes Percent Auto 11.4 % (18.3-44.2); Mean Corpuscular HGB Conc 30.5 g/dl (32-36); Mean Corpuscular Hemoglobin 31.6 pg (26-34); Mean Corpuscular Volume 103.4 fl (80-100); Mean Platelet Volume 9.6 fl (7.4-10.4); Monocytes Absolute Auto 0.8 K/mm3 (0.1-0.6); Monocytes Percent Auto 6.9 % (2.6-8.5); Platelet Count Result 370 k/mm3 (150-375); Red Blood Count 3.77 M/mm3 (4.6-6.20); Red Cell Distribution Width 13.1 % (11.5-14.5); White Blood Count 11.7 K/mm3 (4.5-10.0)
[2024-08-17 06:00] LABS: Glucose Point of Care 239 mg/dl (65-105)
[2024-08-17 06:23] LABS: Alanine Aminotransferase 21 U/L (6-50); Alkaline Phosphatase 49 U/L (38-126); Anion Gap 8 mmol/L (4-12); Aspartate Amino Transferase 35 U/L (17-59); Blood Urea Nitrogen 19 mg/dL (9-20); Calcium 7.9 mg/dL (8.4-10.2); Carbon Dioxide 34 mmol/L (22-30); Chloride 98 mmol/L (98-107); Estimated CRCL calculation 71 ml/min; Estimated Glomerular Filt Rate > 60; Glucose 618 mg/dL (65-110); Magnesium 2.1 mg/dL (1.6-2.3); Phosphorus 5.3 mg/dL (2.5-4.5); Potassium 4.4 mmol/L (3.4-5.0); Sodium 140 mmol/L (137-145)
[2024-08-17 06:27] LABS: Glucose Point of Care 205 mg/dl (65-105)
[2024-08-17 07:04] LABS: Alanine Aminotransferase 25 U/L (6-50); Albumin Level 3.2 g/dL (3.5-5.1); Alkaline Phosphatase 59 U/L (38-126); Anion Gap 5 mmol/L (4-12); Aspartate Amino Transferase 41 U/L (17-59); Bilirubin,Total 1.2 mg/dL (0.2-1.3); Blood Urea Nitrogen 22 mg/dL (9-20); Calcium 8.2 mg/dL (8.4-10.2); Carbon Dioxide 37 mmol/L (22-30); Chloride 102 mmol/L (98-107); Estimated CRCL calculation 88 ml/min; Estimated Glomerular Filt Rate > 60; Glucose 213 mg/dL (65-110); Potassium 3.5 mmol/L (3.4-5.0); Sodium 144 mmol/L (137-145)
[2024-08-17 08:24] LABS: Folic Acid 17.9 ng/mL (2.76->20)
[2024-08-17 08:36] LABS: Glucose Point of Care 215 mg/dl (65-105)
[2024-08-17] MEDS: BISACODYL 10 MG SUPPOSITORY RECTAL (08:57)
[2024-08-17] MEDS: THIAMINE HCL 200 MG/2 ML VIAL 100 MG IV PUSH (08:57)
[2024-08-17] MEDS: FOLIC ACID 1 MG/0.2 ML INJ IV PUSH (08:57)
[2024-08-17 10:00] VITALS: BP 128/82; PULSE 80; RESP 19; TEMP 36.4; O2SAT 95
[2024-08-17 11:55] LABS: Triglycerides 160 mg/dL (<150)
[2024-08-17 12:13] LABS: Glucose Point of Care 221 mg/dl (65-105)
[2024-08-17] MEDS: FAT EMULSIONS IV 20% 250 ML 20.8 ML IVPB (12:41)
[2024-08-17] MEDS: MULTIVITAMINS IV CONT (12:43)
[2024-08-17] MEDS: [UNRECOGNIZED DRUG - OTHER] IV CONT (12:43)
--- NOTE | 2024-08-17 13:33 | WPDGIPROGNO ---
Progress Note: A&P Assessment and Plan (1) Cirrhosis: Code(s): K74.60 - Unspecified cirrhosis of liver Status: Acute 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 - Malignant neoplasm of abdomen Status: Acute (3) Ileus: Code(s): K56.7 - Ileus, unspecified Status: Acute Assessment and Plan: The patient has persistent small-bowel obstruction secondary to peritoneal carcinomatosis. NG tube output still very high, more than 2 L per day. In the process of obtaining placement, but in the meantime receiving parenteral nutrition, analgesics and continues NG suction. The possibility of a colonoscopy for the purpose of investigating primary neoplasm is remote for now. Subjective Date/time seen: 08/17/24 13:33 Interval history: Feels somewhat better although naturally uncomfortable with the NG tube. He had a small-volume liquid bowel movement this morning. Abdominal pain controlled with narcotics. Review of Systems Review of Systems: All systems reviewed & are unremarkable except as noted in HPI and below Exam Narrative: Abdomen still tense. Nasogastric tube with abundant greenish material. The rest of the physical examination is unchanged. Objective Data Vital Signs Vital Signs: Vital Signs - 24 hr 08/16/24 13:55 08/16/24 17:27 08/16/24 20:00 Temperature 97.9 F 98.0 F Pulse Rate 82 84 Respiratory Rate 18 18 Blood Pressure 151/90 H 161/99 H Pulse Oximetry 94 94 Oxygen Delivery Room Air 08/16/24 20:46 08/17/24 05:33 08/17/24 09:00 Temperature 97.9 F 97.7 F Pulse Rate 80 85 Respiratory Rate 20 20 Blood Pressure 136/89 130/89 Pulse Oximetry 93 95 Oxygen Delivery Room Air 08/17/24 10:00 Temperature 97.6 F Pulse Rate 80 Respiratory Rate 19 Blood Pressure 128/82 Pulse Oximetry 95 Oxygen Delivery Intake/Output Intake/Output: Intake & Output 08/14/24 08/15/24 08/16/24 08/17/24 23:59 23:59 23:59 23:59 Intake Total 3164.7 2387.3 1452.5 2282.7 Output Total 3950 2550 3350 1900 Balance -785.3 -162.7 -1897.5 382.7 Meds/Results Medications: Active Medications Generic Name Dose Route Start Last Admin Trade Name Freq PRN Reason Stop Dose Admin Acetaminophen 650 mg 08/07/24 17:40 Acetaminophen 325 Mg Tablet PO Q4H PRN Mild Pain (1-3) or Fever Hydrocodone Bitart/Acetaminophen 1 tab 08/07/24 15:49 08/10/24 12:46 Hydrocodone/Acetaminophen (*Crx) 5-325 Mg Tablet PO 1 tab Q4H PRN Administration Pain Rated 4-6 Al Hydrox/Mg Hydrox/Simethicone 30 ml 08/15/24 13:00 08/17/24 05:13 Mag Hydrox/Al Hydrox/Simeth 30 Ml Udc FEED TUBE 30 ml Q8HR MEGGAN Administration Bisacodyl 10 mg 08/17/24 09:00 08/17/24 08:57 Bisacodyl 10 Mg Suppository RECTAL 08/18/24 09:01 10 mg QAM MEGGAN Administration Chlordiazepoxide HCl 25 mg 08/08/24 12:53 Chlordiazepoxide (*Crx) 25 Mg Capsule PO Q6H PRN Withdrawal CIWA 8-15 Dextrose 12.5 gm 08/07/24 22:17 Dextrose 50% 25 Gm/50 Ml Syringe IV PUSH PRN PRN Hypoglycemia Protocol Docusate Sodium 100 mg 08/08/24 09:00 08/17/24 08:54 Docusate Sodium 100 Mg Capsule PO Not Given BID MEGGAN Finasteride 5 mg 08/08/24 09:00 08/14/24 15:23 Finasteride 5 Mg Tablet PO Not Given DAILY MEGGAN Folic Acid 1 mg 08/15/24 09:00 08/17/24 08:57 Folic Acid 1 Mg/0.2 Ml Inj IV PUSH 1 mg QAM MEGGAN Administration Glucagon 1 mg 08/07/24 22:17 Glucagon For Inj 1 Mg Vial IM PRN PRN Hypoglycemia Protocol Glucose 15 gm 08/07/24 22:17 Glucose Oral Gel 15 Gm Of Glucse In 37.5 Gm Tube PO PRN PRN Hypoglycemia Protocol Dextrose 1,000 mls @ 100 mls/hr 08/07/24 22:17 Dextrose 5% 1,000 Ml IVPB PRN PRN Hypoglycemia Protocol Piperacillin/Tazobactam/Dextrose 3.375 gm in 50 mls @ 100 mls/hr 08/09/24 11:00 08/17/24 11:10 Zosyn 3.375 Gm/Ns 50 Ml IVPB 08/18/24 23:59 100 mls/hr Q6HR MEGGAN Administration Sodium Chloride 1,000 mls @ 40 mls/hr 08/10/24 16:30 08/17/24 05:06 Normal Saline Iv IV CONT 40 mls/hr .Q24H MEGGAN Administration Dextrose 1,000 mls @ 50 mls/hr 08/12/24 11:57 Dextrose 10% IV CONT .Q20H PRN if PN is interrupted Multivitamins 1.25 ml/ 1,002.5 mls @ 40 mls/hr 08/12/24 13:00 08/17/24 12:43 Multivitamins 1.25 ml/ Amino IV CONT 40 mls/hr Acids/Electrolytes/Dextrose .Q24H MEGGAN Administration Protocol Fat Emulsion Intravenous 250 mls @ 20.833 mls/hr 08/12/24 12:00 08/17/24 12:41 Lipids 20% IVPB 20.8 mls/hr Q24H MEGGAN Administration Insulin Aspart 3 - 6 units 08/10/24 18:00 08/17/24 12:19 Insulin Aspart (*Bkc) 100 Units/Ml SUB-Q 3 units Q6H MEGGAN Administration Protocol Insulin Glargine 20 units 08/16/24 21:00 08/16/24 20:06 Insulin Glargine (*Bkc) 100 Units/Ml SUB-Q 20 units HS MEGGAN Administration Levothyroxine Sodium 25 mcg 08/14/24 09:00 08/16/24 10:05 Levothyroxine Sodium Inj 100 Mcg/5 Ml Vial IV PUSH 25 mcg Q48H MEGGAN Administration Lorazepam 2 mg 08/08/24 07:42 08/08/24 20:35 Lorazepam Inj (*Crx) 2 Mg/Ml Vial IV PUSH 2 mg Q4H PRN Administration CIWA >15 Miscellaneous Information 1 each 08/17/24 00:01 Order Clarification XX 09/16/24 00:00 CLARIFY MEGGAN Miscellaneous Information 1 each 08/17/24 00:01 Lorazepam Needs To Be Renewed Or It Will Automatically Discontinue. XX 09/16/24 00:00 CLARIFY MEGGAN Morphine Sulfate 2 mg 08/11/24 17:56 08/17/24 11:10 Morphine Sulfate (*Crx) 2 Mg/Ml Inj IV PUSH 2 mg Q2H PRN Administration Pain Rated 7-10 Ondansetron HCl 4 mg 08/07/24 15:49 08/16/24 20:01 Ondansetron Inj 4 Mg/2 Ml Vial IV PUSH 4 mg Q4H PRN Administration Nausea Sodium Chloride 10 ml 08/12/24 14:00 08/17/24 05:17 Central Line Flush IV PUSH 10 ml Q8HR MEGGAN Administration Sodium Chloride 10 ml 08/12/24 13:02 Central Line Flush IV PUSH PRN PRN with TPN bag changes Sodium Chloride 20 ml 08/12/24 13:02 08/13/24 05:19 Central Line Flush IV PUSH 20 ml PRN PRN Administration after blood draws Thiamine HCl 100 mg 08/15/24 09:00 08/17/24 08:57 Thiamine Hcl 200 Mg/2 Ml Vial IV PUSH 100 mg QAM MEGGAN Administration Radiology Results: ITS Impressions Upper Quadrant Ultrasound 08/08/24 20:04 IMPRESSION: Cirrhosis. NG Tube Placement 08/10/24 15:41 IMPRESSION: 1. Successful fluoroscopic guided placement of a nasogastric tube which is in expected position with distal tip and proximal side port in the body of the stomach. Chest CT 08/11/24 10:56 IMPRESSION: 1. Peritoneal carcinomatosis. Moderate volume of ascites. 2. Cirrhosis of the liver. Paracentesis Ultrasound 08/11/24 12:36 IMPRESSION: 1. Successful ultrasound-guided paracentesis yielding 4400 mL of reddish fluid. Abdomen/Pelvis CT 08/11/24 17:17 IMPRESSION: 1. Ascites seen in the pelvis, around the liver, right paracolic gutter and around the spleen. Possibility of subcapsular hematoma around the liver cannot be excluded. 2. Liver cirrhosis. 3. Fat stranding in the mesentery which may indicate inflammatory changes or edema. 4. Thickened wall of the small bowel in the area of the pelvis which may indicate enteritis. No air is seen in the wall. Ischemia cannot be excluded. This thickening is slightly more prominent than the previous study. Chest X-Ray 08/12/24 12:50 IMPRESSION: 1. Left PICC line tip at the midsuperior vena cava. 2. Elevation of the right hemidiaphragm with right basilar atelectasis, new since 07/30/2024 but seen on intervening CT from one day prior. Small Bowel X-Ray 08/14/24 17:24 IMPRESSION: 1. Dilated small bowel with contrast remaining within the dilated small bowel at 4 hours, consistent with adynamic ileus versus distal obstruction. Abdomen X-Ray 08/17/24 08:18 Impression: 1: Mildly dilated small bowel may represent ileus or less likely partial obstruction. Labs Labs: Laboratory Results - last 24 hr 08/16/24 08/16/24 08/16/24 16:37 20:05 23:41 WBC RBC Hgb Hct MCV MCH MCHC RDW Plt Count MPV Immature Gran % (Auto) Neut % (Auto) Lymph % (Auto) [place] % (Auto) Eos % (Auto) Baso % (Auto) Lymph # (Auto) [place] # (Auto) Eos # (Auto) Baso # (Auto) Abs Immat Gran (auto) Absolute Neuts (auto) Absolute Nucleated RBC Nucleated RBC % Sodium Potassium Chloride Carbon Dioxide Anion Gap BUN Creatinine Estim Creat Clear Calc Estimated GFR Glucose POC Capillary Glucose 203 H 217 H 244 H Calcium Phosphorus Magnesium Total Bilirubin AST ALT Alkaline Phosphatase Total Protein Albumin Triglycerides Vitamin B12 Folate 08/17/24 08/17/24 08/17/24 05:11 05:38 05:45 WBC 11.7 H RBC 3.77 L Hgb 11.9 L Hct 39.0 L MCV 103.4 H MCH 31.6 MCHC 30.5 L RDW 13.1 Plt Count 370 MPV 9.6 Immature Gran % (Auto) 0.5 Neut % (Auto) 77.0 H Lymph % (Auto) 11.4 L [place] % (Auto) 6.9 Eos % (Auto) 3.1 Baso % (Auto) 1.1 Lymph # (Auto) 1.33 [place] # (Auto) 0.8 H Eos # (Auto) 0.4 H Baso # (Auto) 0.1 Abs Immat Gran (auto) 0.06 H Absolute Neuts (auto) 9.0 H Absolute Nucleated RBC 0.000 Nucleated RBC % 0.0 Sodium 140 Potassium 4.4 Chloride 98 Carbon Dioxide 34 H Anion Gap 8 BUN 19 Creatinine 1.00 Estim Creat Clear Calc 71 Estimated GFR > 60 Glucose 618 H* POC Capillary Glucose 240 H 239 H Calcium 7.9 L Phosphorus 5.3 H Magnesium 2.1 Total Bilirubin 1.0 AST 35 ALT 21 Alkaline Phosphatase 49 Total Protein 6.0 L Albumin 3.0 L Triglycerides Vitamin B12 Folate 08/17/24 08/17/24 08/17/24 06:24 06:32 08:28 WBC RBC Hgb Hct MCV MCH MCHC RDW Plt Count MPV Immature Gran % (Auto) Neut % (Auto) Lymph % (Auto) [place] % (Auto) Eos % (Auto) Baso % (Auto) Lymph # (Auto) [place] # (Auto) Eos # (Auto) Baso # (Auto) Abs Immat Gran (auto) Absolute Neuts (auto) Absolute Nucleated RBC Nucleated RBC % Sodium 144 Potassium 3.5 Chloride 102 Carbon Dioxide 37 H Anion Gap 5 BUN 22 H Creatinine 0.80 Estim Creat Clear Calc 88 Estimated GFR > 60 Glucose 213 H POC Capillary Glucose 205 H 215 H Calcium 8.2 L Phosphorus Magnesium Total Bilirubin 1.2 AST 41 ALT 25 Alkaline Phosphatase 59 Total Protein 7.0 Albumin 3.2 L Triglycerides 160 H Vitamin B12 776.0 Folate 17.9 08/17/24 12:02 WBC RBC Hgb Hct MCV MCH MCHC RDW Plt Count MPV Immature Gran % (Auto) Neut % (Auto) Lymph % (Auto) [place] % (Auto) Eos % (Auto) Baso % (Auto) Lymph # (Auto) [place] # (Auto) Eos # (Auto) Baso # (Auto) Abs Immat Gran (auto) Absolute Neuts (auto) Absolute Nucleated RBC Nucleated RBC % Sodium Potassium Chloride Carbon Dioxide Anion Gap BUN Creatinine Estim Creat Clear Calc Estimated GFR Glucose POC Capillary Glucose 221 H Calcium Phosphorus Magnesium Total Bilirubin AST ALT Alkaline Phosphatase Total Protein Albumin Triglycerides Vitamin B12 Folate
[2024-08-17 14:00] VITALS: BP 132/74; PULSE 78; RESP 19; TEMP 36.5; O2SAT 96
--- NOTE | 2024-08-17 16:37 | WPDONCPN ---
Progress Note: A/P (1) Abdominal carcinomatosis Code(s): C76.2 - Malignant neoplasm of abdomen Status: Acute - Additional Plan Patient with new diagnosis of peritoneal carcinomatosis on abdominal CT scan performed on 08/08/2024. A diagnostic paracentesis was performed on 08/08/2024 which showed metastatic carcinoma of GI primary. Patient has ileus at this time and has NG tube placed. Cancer enzymes performed shows normal CA 19-9 but high CEA at 61.2 on 08/09/24. GI team is following the patient. We recommended a diagnostic colonoscopy however per GI note today the possibility of colonoscopy is rare. Patient has stage IV metastatic cancer and the prognosis is guarded. Any treatment rendered will be palliative in nature. 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 Oncology is going to continue to follow peripherally. - Time Spent With Patient Total time spent is greater than 50% in coordination of care (as documented) at patient's floor/unit and/or counseling patient: 25 - 35 minutes Subjective Interval history: Patient seen at bedside today. NG in place, Passing gas and small BM with suppository. Continues to have large NG output. Review of Systems - Constitutional Reports fatigue, Reports lack of energy, Reports malaise - Eyes Comments: Normal - ENT Comments: Normal - Cardiovascular Comments: No chest pain or dyspnea - Gastrointestinal Reports abdominal pain, Reports bloating, Reports cramping - Neurologic Reports weakness Comments: Normal neurological complaints Exam - Constitutional moderate distress - Routine HEENT Exam Head: Present: atraumatic - Routine Respiratory Exam Present: CTAB - Routine Cardiovascular Exam Cardiovascular: Present: RRR, S1 - Routine Abdominal Exam Present: distended, firm, guarding Comments: Kirstie Leroy. Assessment of coma and impaired consciousness. A practical scale. Lancet 1974; 2:81-4. NG in place - Routine Skin Exam Present: dry PN: Objective Data - Labs CBC & Chem 7: 08/17/24 05:45 08/17/24 06:32 Labs: Laboratory Results - last 24 hr 08/16/24 08/16/24 08/16/24 16:37 20:05 23:41 WBC RBC Hgb Hct MCV MCH MCHC RDW Plt Count MPV Immature Gran % (Auto) Neut % (Auto) Lymph % (Auto) [place] % (Auto) Eos % (Auto) Baso % (Auto) Lymph # (Auto) [place] # (Auto) Eos # (Auto) Baso # (Auto) Abs Immat Gran (auto) Absolute Neuts (auto) Absolute Nucleated RBC Nucleated RBC % Sodium Potassium Chloride Carbon Dioxide Anion Gap BUN Creatinine Estim Creat Clear Calc Estimated GFR Glucose POC Capillary Glucose 203 H 217 H 244 H Calcium Phosphorus Magnesium Total Bilirubin AST ALT Alkaline Phosphatase Total Protein Albumin Triglycerides Vitamin B12 Folate 08/17/24 08/17/24 08/17/24 05:11 05:38 05:45 WBC 11.7 H RBC 3.77 L Hgb 11.9 L Hct 39.0 L MCV 103.4 H MCH 31.6 MCHC 30.5 L RDW 13.1 Plt Count 370 MPV 9.6 Immature Gran % (Auto) 0.5 Neut % (Auto) 77.0 H Lymph % (Auto) 11.4 L [place] % (Auto) 6.9 Eos % (Auto) 3.1 Baso % (Auto) 1.1 Lymph # (Auto) 1.33 [place] # (Auto) 0.8 H Eos # (Auto) 0.4 H Baso # (Auto) 0.1 Abs Immat Gran (auto) 0.06 H Absolute Neuts (auto) 9.0 H Absolute Nucleated RBC 0.000 Nucleated RBC % 0.0 Sodium 140 Potassium 4.4 Chloride 98 Carbon Dioxide 34 H Anion Gap 8 BUN 19 Creatinine 1.00 Estim Creat Clear Calc 71 Estimated GFR > 60 Glucose 618 H* POC Capillary Glucose 240 H 239 H Calcium 7.9 L Phosphorus 5.3 H Magnesium 2.1 Total Bilirubin 1.0 AST 35 ALT 21 Alkaline Phosphatase 49 Total Protein 6.0 L Albumin 3.0 L Triglycerides Vitamin B12 Folate 08/17/24 08/17/24 08/17/24 06:24 06:32 08:28 WBC RBC Hgb Hct MCV MCH MCHC RDW Plt Count MPV Immature Gran % (Auto) Neut % (Auto) Lymph % (Auto) [place] % (Auto) Eos % (Auto) Baso % (Auto) Lymph # (Auto) [place] # (Auto) Eos # (Auto) Baso # (Auto) Abs Immat Gran (auto) Absolute Neuts (auto) Absolute Nucleated RBC Nucleated RBC % Sodium 144 Potassium 3.5 Chloride 102 Carbon Dioxide 37 H Anion Gap 5 BUN 22 H Creatinine 0.80 Estim Creat Clear Calc 88 Estimated GFR > 60 Glucose 213 H POC Capillary Glucose 205 H 215 H Calcium 8.2 L Phosphorus Magnesium Total Bilirubin 1.2 AST 41 ALT 25 Alkaline Phosphatase 59 Total Protein 7.0 Albumin 3.2 L Triglycerides 160 H Vitamin B12 776.0 Folate 17.9 08/17/24 12:02 WBC RBC Hgb Hct MCV MCH MCHC RDW Plt Count MPV Immature Gran % (Auto) Neut % (Auto) Lymph % (Auto) [place] % (Auto) Eos % (Auto) Baso % (Auto) Lymph # (Auto) [place] # (Auto) Eos # (Auto) Baso # (Auto) Abs Immat Gran (auto) Absolute Neuts (auto) Absolute Nucleated RBC Nucleated RBC % Sodium Potassium Chloride Carbon Dioxide Anion Gap BUN Creatinine Estim Creat Clear Calc Estimated GFR Glucose POC Capillary Glucose 221 H Calcium Phosphorus Magnesium Total Bilirubin AST ALT Alkaline Phosphatase Total Protein Albumin Triglycerides Vitamin B12 Folate
[2024-08-17 17:12] LABS: Glucose Point of Care 219 mg/dl (65-105)
--- NOTE | 2024-08-17 17:51 | PM.IMPN ---
Progress Note: A&P Assessment and Plan (1) Ascites: Code(s): R18.8 - Other ascites Status: Acute Assessment and Plan: Patient presents with abdominal pain. CT Abd/pelvis showing moderate ascites with peritoneal nodularity consistent with carcinomatosis, wall thickening of the distal SB and liver cirrhosis. Paracentesis in the ER had bloody fluid and removal of 800 mL of dark reddish fluid. Rocephin x 1 given. RBC 36K, WBC 2K with 20 PMNs. Absolute PMNs 400. 256 if corrected for RBCs. Since >250 PMN cells, will continue IV Rocephin for peritonitis. Gram stain showing WBC but no organisms. Pathology pending. BCx negative. GI consulted. Pathology returned positive for metastatic carcinoma. AFP normal, CEA elevated, CA 19 9 normal Carcinomatosis most compatible with carcinoma from colon metastatic to ascites fluid. General surgery was consulted. however deferred laparoscopic evaluation. Will need colonoscopy evaluation however due to current ileus this is not feasible. Undergoing PET-CT is an option however this is not done as an inpatient here. Oncology consulted. CT chest for staging performed which did not show any other metastatic lesions. Status post therapeutic paracentesis with removal of 4.4 L 08/11/2024 of reddish fluid. NG tube placement for ileus. Small-bowel follow-through with dilated small bowel and contrast eventually seen in large bowel which may indicate partial obstruction. Still ongoing with large NG output. Received Dulcolax suppository. General surgery still suggest evaluation by surgical oncology team at tertiary care facility for further treatment of his condition. He was accepted at [facility] but awaiting bed placement. Called [facility] but they declined to accept. 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 Oncology consulted and recommended a diagnostic colonoscopy however unlikely patient will have colonoscopy in the near future. Patient has stage IV metastatic cancer and the prognosis is guarded. They felt treatment would be palliative in nature. As above (3) Ileus: Code(s): K56.7 - Ileus, unspecified Status: Acute Assessment and Plan: As above (4) Enteritis: Code(s): K52.9 - Noninfective gastroenteritis and colitis, unspecified Status: Acute Assessment and Plan: CT scan showing thickening of the distal SB. Possible enteritis versus interstitial edema. Treated with Rocephin but WBC climbed to 23K so changed to IV Zosyn WBC better Zosyn through tomorrow (5) Diabetes mellitus: Code(s): E11.9 - Type 2 diabetes mellitus without complications Status: Acute Assessment and Plan: A1c 9.0%. The patient's blood glucose was reviewed on 08/17 Glucose poorly controlled. Started on Lantus since on TPN Continue AccuCheks covering with sliding scale. Hypoglycemia protocol available as needed. Advance Lantus (6) Alcohol abuse: Code(s): F10.10 - Alcohol abuse, uncomplicated Status: Acute Assessment and Plan: Patient received banana bag. CIWA protocol was started. CIWA score was up to 16 and he was having auditory hallucinations. Ammonia level low so doubt hepatic encephalopathy and more likely from withdrawal. Continue Thiamine and Folate Librium and Ativan were available as needed. CIWA score normalized. CIWA protocol stopped 08/13. he was educated about the benefits of alcohol cessation (7) Hypertension: Code(s): I10 - Essential (primary) hypertension Status: Acute Assessment and Plan: Patient's blood pressure was reviewed on 08/17 Blood pressure well controlled. Will continue to monitor (8) Liver cirrhosis, alcoholic: Code(s): K70.30 - Alcoholic cirrhosis of liver without ascites Status: Acute Assessment and Plan: Patient with liver cirrhosis noted on CT imaging most likely from alcoholism. Not been to our facility before. RUQ showing small liver with findings c/w cirrhosis. No liver masses noted. AFP level negative. GI following (9) BPH (benign prostatic hyperplasia): Code(s): N40.0 - Benign prostatic hyperplasia without lower urinary tract symptoms Status: Acute Assessment and Plan: NPO. Monitor for retention. (10) Hypothyroidism: Code(s): E03.9 - Hypothyroidism, unspecified Status: Acute Assessment and Plan: TSH mildly elevated. Continue levothyroxine IV. Will need repeat TSH once he is well Plan DVT prophylaxis SCDs. Add Lovenox Code status full code Subjective Date/time seen: 08/17/24 17:51 Interval history: 68yo male with BPH, HTN and hypothyroidism here for abdominal pain. +BM and passing flatus. Feels better. Is agreeable to transfer to [facility] if able to get bed sooner. Exam Narrative: AF 97.7 132/74 78 19 96% ra Gen - NARD HEENT - NGT secured and to suction Chest - CTA bilaterally, nml RR CV - RRR S1/S2 Abd - Soft, distended, _BS, diffusely tender Ext - trace pedal edema. 2+ DP pulses Psych - Nml mood and affect Skin - Warm and dry Objective Data Vital Signs Vital Signs: Vital Signs - 24 hr 08/16/24 20:00 08/16/24 20:46 08/17/24 05:33 Temperature 97.9 F 97.7 F Pulse Rate 80 85 Respiratory Rate 20 20 Blood Pressure 136/89 130/89 Pulse Oximetry 93 95 Oxygen Delivery Room Air 08/17/24 09:00 08/17/24 10:00 08/17/24 14:00 Temperature 97.6 F 97.7 F Pulse Rate 80 78 Respiratory Rate 19 19 Blood Pressure 128/82 132/74 Pulse Oximetry 95 96 Oxygen Delivery Room Air Intake/Output Intake/Output: Intake & Output 08/14/24 08/15/24 08/16/24 08/17/24 23:59 23:59 23:59 23:59 Intake Total 3164.7 2387.3 1452.5 2332.7 Output Total 3950 2550 3350 1900 Balance -785.3 -162.7 -1897.5 432.7 Meds/Results Medications: Active Medications Generic Name Dose Route Start Last Admin Trade Name Freq PRN Reason Stop Dose Admin Acetaminophen 650 mg 08/07/24 17:40 Acetaminophen 325 Mg Tablet PO Q4H PRN Mild Pain (1-3) or Fever Al Hydrox/Mg Hydrox/Simethicone 30 ml 08/15/24 13:00 08/17/24 14:32 Mag Hydrox/Al Hydrox/Simeth 30 Ml Udc FEED TUBE 30 ml Q8HR MEGGAN Administration Bisacodyl 10 mg 08/17/24 09:00 08/17/24 08:57 Bisacodyl 10 Mg Suppository RECTAL 08/18/24 09:01 10 mg QAM MEGGAN Administration Chlordiazepoxide HCl 25 mg 08/08/24 12:53 Chlordiazepoxide (*Crx) 25 Mg Capsule PO Q6H PRN Withdrawal CIWA 8-15 Dextrose 12.5 gm 10/28/24 22:17 Dextrose 50% 25 Gm/50 Ml Syringe IV PUSH PRN PRN Hypoglycemia Protocol Docusate Sodium 100 mg 08/08/24 09:00 08/17/24 15:47 Docusate Sodium 100 Mg Capsule PO Not Given BID MEGGAN Finasteride 5 mg 08/08/24 09:00 08/14/24 15:23 Finasteride 5 Mg Tablet PO Not Given DAILY MEGGAN Folic Acid 1 mg 08/15/24 09:00 08/17/24 08:57 Folic Acid 1 Mg/0.2 Ml Inj IV PUSH 1 mg QAM MEGGAN Administration Glucagon 1 mg 08/07/24 22:17 Glucagon For Inj 1 Mg Vial IM PRN PRN Hypoglycemia Protocol Glucose 15 gm 08/07/24 22:17 Glucose Oral Gel 15 Gm Of Glucse In 37.5 Gm Tube PO PRN PRN Hypoglycemia Protocol Dextrose 1,000 mls @ 100 mls/hr 08/07/24 22:17 Dextrose 5% 1,000 Ml IVPB PRN PRN Hypoglycemia Protocol Piperacillin/Tazobactam/Dextrose 3.375 gm in 50 mls @ 100 mls/hr 08/09/24 11:00 08/17/24 17:47 Zosyn 3.375 Gm/Ns 50 Ml IVPB 08/18/24 23:59 100 mls/hr Q6HR MEGGAN Administration Sodium Chloride 1,000 mls @ 40 mls/hr 08/10/24 16:30 08/17/24 05:06 Normal Saline Iv IV CONT 40 mls/hr .Q24H MEGGAN Administration Dextrose 1,000 mls @ 50 mls/hr 08/12/24 11:57 Dextrose 10% IV CONT .Q20H PRN if PN is interrupted Multivitamins 1.25 ml/ 1,002.5 mls @ 40 mls/hr 08/12/24 13:00 08/17/24 12:43 Multivitamins 1.25 ml/ Amino IV CONT 40 mls/hr Acids/Electrolytes/Dextrose .Q24H MEGGAN Administration Protocol Fat Emulsion Intravenous 250 mls @ 20.833 mls/hr 08/12/24 12:00 08/17/24 12:41 Lipids 20% IVPB 20.8 mls/hr Q24H MEGGAN Administration Insulin Aspart 3 - 6 units 08/10/24 18:00 08/17/24 17:48 Insulin Aspart (*Bkc) 100 Units/Ml SUB-Q 3 units Q6H MEGGAN Administration Protocol Insulin Glargine 20 units 08/16/24 21:00 08/16/24 20:06 Insulin Glargine (*Bkc) 100 Units/Ml SUB-Q 20 units HS MEGGAN Administration Levothyroxine Sodium 25 mcg 08/14/24 09:00 08/16/24 10:05 Levothyroxine Sodium Inj 100 Mcg/5 Ml Vial IV PUSH 25 mcg Q48H MEGGAN Administration Lorazepam 2 mg 08/08/24 07:42 08/08/24 20:35 Lorazepam Inj (*Crx) 2 Mg/Ml Vial IV PUSH 2 mg Q4H PRN Administration CIWA >15 Miscellaneous Information 1 each 08/17/24 00:01 Order Clarification XX 09/16/24 00:00 [facility]IFY [facility] Miscellaneous Information 1 each 08/17/24 00:01 Lorazepam Needs To Be Renewed Or It Will Automatically Discontinue. XX 09/16/24 00:00 [facility] Morphine Sulfate 2 mg 08/11/24 17:56 08/17/24 11:10 Morphine Sulfate (*Crx) 2 Mg/Ml Inj IV PUSH 2 mg Q2H PRN Administration Pain Rated 7-10 Ondansetron HCl 4 mg 08/07/24 15:49 08/16/24 20:01 Ondansetron Inj 4 Mg/2 Ml Vial IV PUSH 4 mg Q4H PRN Administration Nausea Sodium Chloride 10 ml 08/12/24 14:00 08/17/24 14:33 Central Line Flush IV PUSH 10 ml Q8HR MEGGAN Administration Sodium Chloride 10 ml 08/12/24 13:02 Central Line Flush IV PUSH PRN PRN with TPN bag changes Sodium Chloride 20 ml 08/12/24 13:02 08/13/24 05:19 Central Line Flush IV PUSH 20 ml PRN PRN Administration after blood draws Thiamine HCl 100 mg 08/15/24 09:00 08/17/24 08:57 Thiamine Hcl 200 Mg/2 Ml Vial IV PUSH 100 mg QAM MEGGAN Administration Radiology Results: ITS Impressions Upper Quadrant Ultrasound 08/08/24 20:04 IMPRESSION: Cirrhosis. NG Tube Placement 08/10/24 15:41 IMPRESSION: 1. Successful fluoroscopic guided placement of a nasogastric tube which is in expected position with distal tip and proximal side port in the body of the stomach. Chest CT 08/11/24 10:56 IMPRESSION: 1. Peritoneal carcinomatosis. Moderate volume of ascites. 2. Cirrhosis of the liver. Paracentesis Ultrasound 08/11/24 12:36 IMPRESSION: 1. Successful ultrasound-guided paracentesis yielding 4400 mL of reddish fluid. Abdomen/Pelvis CT 08/11/24 17:17 IMPRESSION: 1. Ascites seen in the pelvis, around the liver, right paracolic gutter and around the spleen. Possibility of subcapsular hematoma around the liver cannot be excluded. 2. Liver cirrhosis. 3. Fat stranding in the mesentery which may indicate inflammatory changes or edema. 4. Thickened wall of the small bowel in the area of the pelvis which may indicate enteritis. No air is seen in the wall. Ischemia cannot be excluded. This thickening is slightly more prominent than the previous study. Chest X-Ray 08/12/24 12:50 IMPRESSION: 1. Left PICC line tip at the midsuperior vena cava. 2. Elevation of the right hemidiaphragm with right basilar atelectasis, new since 07/30/2024 but seen on intervening CT from one day prior. Small Bowel X-Ray 08/14/24 17:24 IMPRESSION: 1. Dilated small bowel with contrast remaining within the dilated small bowel at 4 hours, consistent with adynamic ileus versus distal obstruction. Abdomen X-Ray 08/17/24 08:18 Impression: 1: Mildly dilated small bowel may represent ileus or less likely partial obstruction. Labs Labs: Laboratory Results - last 24 hr 08/16/24 08/16/24 08/17/24 20:05 23:41 05:11 WBC RBC Hgb Hct MCV MCH MCHC RDW Plt Count MPV Immature Gran % (Auto) Neut % (Auto) Lymph % (Auto) Smith % (Auto) Eos % (Auto) Baso % (Auto) Lymph # (Auto) Smith # (Auto) Eos # (Auto) Baso # (Auto) Abs Immat Gran (auto) Absolute Neuts (auto) Absolute Nucleated RBC Nucleated RBC % Sodium Potassium Chloride Carbon Dioxide Anion Gap BUN Creatinine Estim Creat Clear Calc Estimated GFR Glucose POC Capillary Glucose 217 H 244 H 240 H Calcium Phosphorus Magnesium Total Bilirubin AST ALT Alkaline Phosphatase Total Protein Albumin Triglycerides Vitamin B12 Folate 08/17/24 08/17/24 08/17/24 05:38 05:45 06:24 WBC 11.7 H RBC 3.77 L Hgb 11.9 L Hct 39.0 L MCV 103.4 H MCH 31.6 MCHC 30.5 L RDW 13.1 Plt Count 370 MPV 9.6 Immature Gran % (Auto) 0.5 Neut % (Auto) 77.0 H Lymph % (Auto) 11.4 L Smith % (Auto) 6.9 Eos % (Auto) 3.1 Baso % (Auto) 1.1 Lymph # (Auto) 1.33 Smith # (Auto) 0.8 H Eos # (Auto) 0.4 H Baso # (Auto) 0.1 Abs Immat Gran (auto) 0.06 H Absolute Neuts (auto) 9.0 H Absolute Nucleated RBC 0.000 Nucleated RBC % 0.0 Sodium 140 Potassium 4.4 Chloride 98 Carbon Dioxide 34 H Anion Gap 8 BUN 19 Creatinine 1.00 Estim Creat Clear Calc 71 Estimated GFR > 60 Glucose 618 H* POC Capillary Glucose 239 H 205 H Calcium 7.9 L Phosphorus 5.3 H Magnesium 2.1 Total Bilirubin 1.0 AST 35 ALT 21 Alkaline Phosphatase 49 Total Protein 6.0 L Albumin 3.0 L Triglycerides Vitamin B12 Folate 08/17/24 08/17/24 08/17/24 06:32 08:28 12:02 WBC RBC Hgb Hct MCV MCH MCHC RDW Plt Count MPV Immature Gran % (Auto) Neut % (Auto) Lymph % (Auto) Smith % (Auto) Eos % (Auto) Baso % (Auto) Lymph # (Auto) Smith # (Auto) Eos # (Auto) Baso # (Auto) Abs Immat Gran (auto) Absolute Neuts (auto) Absolute Nucleated RBC Nucleated RBC % Sodium 144 Potassium 3.5 Chloride 102 Carbon Dioxide 37 H Anion Gap 5 BUN 22 H Creatinine 0.80 Estim Creat Clear Calc 88 Estimated GFR > 60 Glucose 213 H POC Capillary Glucose 215 H 221 H Calcium 8.2 L Phosphorus Magnesium Total Bilirubin 1.2 AST 41 ALT 25 Alkaline Phosphatase 59 Total Protein 7.0 Albumin 3.2 L Triglycerides 160 H Vitamin B12 776.0 Folate 17.9 08/17/24 17:06 WBC RBC Hgb Hct MCV MCH MCHC RDW Plt Count MPV Immature Gran % (Auto) Neut % (Auto) Lymph % (Auto) Smith % (Auto) Eos % (Auto) Baso % (Auto) Lymph # (Auto) Smith # (Auto) Eos # (Auto) Baso # (Auto) Abs Immat Gran (auto) Absolute Neuts (auto) Absolute Nucleated RBC Nucleated RBC % Sodium Potassium Chloride Carbon Dioxide Anion Gap BUN Creatinine Estim Creat Clear Calc Estimated GFR Glucose POC Capillary Glucose 219 H Calcium Phosphorus Magnesium Total Bilirubin AST ALT Alkaline Phosphatase Total Protein Albumin Triglycerides Vitamin B12 Folate
[2024-08-17 18:00] VITALS: BP 130/68; PULSE 74; RESP 18; TEMP 36.4; O2SAT 96
[2024-08-17] MEDS: ENOXAPARIN 40 MG/0.4 ML SYRINGE SUB-Q (19:05)
[2024-08-17 20:04] VITALS: BP 155/86; PULSE 76; RESP 20; TEMP 36.6; O2SAT 95
[2024-08-17] MEDS: INSULIN GLARGINE (*BKC) 100 UNITS/ML 25 UNITS SUB-Q (21:42)
[2024-08-17 21:54] LABS: Glucose Point of Care 207 mg/dl (65-105)
[2024-08-17 23:52] LABS: Glucose Point of Care 200 mg/dl (65-105)
[2024-08-18 00:51] LABS: Glucose Point of Care 201 mg/dl (65-105)
[2024-08-18] MEDS: MORPHINE SULFATE (*CRX) 2 MG/ML INJ IV PUSH ×6 (03:22→21:33)
[2024-08-18 04:59] VITALS: BP 147/80; PULSE 73; RESP 20; TEMP 36.3; O2SAT 93
[2024-08-18] MEDS: PIPERACILLN/TAZ 3.375GM/NS50ML 3.375 GM/50 ML BAG IVPB (05:29)
[2024-08-18] MEDS: CENTRAL LINE FLUSH 10 ML IV PUSH ×3 (05:35→22:10)
[2024-08-18 05:40] LABS: Glucose Point of Care 198 mg/dl (65-105)
[2024-08-18 05:47] LABS: Anion Gap 3 mmol/L (4-12); Blood Urea Nitrogen 20 mg/dL (9-20); Calcium 8.1 mg/dL (8.4-10.2); Carbon Dioxide 38 mmol/L (22-30); Chloride 101 mmol/L (98-107); Estimated CRCL calculation 80 ml/min; Estimated Glomerular Filt Rate > 60; Glucose 192 mg/dL (65-110); Phosphorus 3.4 mg/dL (2.5-4.5); Potassium 3.5 mmol/L (3.4-5.0); Sodium 142 mmol/L (137-145)
[2024-08-18 08:18] LABS: Glucose Point of Care 192 mg/dl (65-105)
[2024-08-18] MEDS: SODIUM CHLORIDE 0.9% IV 1,000 ML 40 ML IV CONT (08:52)
[2024-08-18] MEDS: LEVOTHYROXINE SODIUM INJ 100 MCG/5 ML VIAL 25 MCG IV PUSH (08:56)
[2024-08-18] MEDS: FOLIC ACID 1 MG/0.2 ML INJ IV PUSH (08:56)
[2024-08-18] MEDS: THIAMINE HCL 200 MG/2 ML VIAL 100 MG IV PUSH (08:56)
[2024-08-18] MEDS: BISACODYL 10 MG SUPPOSITORY RECTAL (08:56)
[2024-08-18] MEDS: ENOXAPARIN 40 MG/0.4 ML SYRINGE SUB-Q (08:56)
[2024-08-18 10:00] VITALS: BP 143/88; PULSE 80; RESP 18; TEMP 36.6; O2SAT 95
[2024-08-18 11:20] LABS: Glucose Point of Care 169 mg/dl (65-105)
--- NOTE | 2024-08-18 12:00 | PCNFU ---
Nutrition Follow-Up Complete: Inadequate Oral Intake as related to ab pain/ascites as evidenced by poor po intake. Goal: Meet estimated nutritional needs. Patient has limited progress towards goal. We will continue current goal. Pt current nutrition is TPN at 40 ml.hr Nutrition recommendation: Last recorded weight is 111.3 kg, down from 112.5 kg on admit. Bowel Motility:+BM reported 08/16 Labs Reviewed: Glu 192 Meds Noted: Thiamine, Zosyn, Lantus, Clinimix 5/15 at 40 ml/hr with NS at 40 ml/hr. Skin: WNL Additional Notes: Patient with NGT. TPN at 40 ml/hr providing 1182 kcal/48 gm protein/1210 ml water. Recommend increasing TPN to 50 ml/hr to better meet caloric needs, providing 1352 kcals/60 gm protein. Meeting 77% kcal needs and 86% protein needs. Will monitor weight, labs, skin, oral intake, meds every Wednesday and Wednesday
[2024-08-18] MEDS: MULTIVITAMINS IV CONT (13:11)
[2024-08-18] MEDS: [UNRECOGNIZED DRUG - OTHER] IV CONT (13:11)
[2024-08-18] MEDS: FAT EMULSIONS IV 20% 250 ML 20.8 ML IVPB (13:16)
[2024-08-18 14:00] VITALS: BP 139/89; PULSE 77; RESP 18; TEMP 36.8; O2SAT 94
[2024-08-18] MEDS: MAG HYDROX/AL HYDROX/SIMETH 30 ML UDC FEED TUBE ×2 (14:19→22:10)
--- NOTE | 2024-08-18 14:53 | P.PNIM_ITS ---
Progress Note: A&P Assessment and Plan (1) Ascites: Code(s): R18.8 - Other ascites Status: Acute Assessment and Plan: Patient presents with abdominal pain. CT Abd/pelvis showing moderate ascites with peritoneal nodularity consistent with carcinomatosis, wall thickening of the distal SB and liver cirrhosis. Paracentesis in the ER had bloody fluid and removal of 800 mL of dark reddish fluid. Rocephin x 1 given. RBC 36K, WBC 2K with 20 PMNs. Absolute PMNs 400. 256 if corrected for RBCs. Since >250 PMN cells, he was treated with IV abx for peritonitis. Gram stain showing WBC but no organisms. Pathology pending. BCx negative. GI consulted. Pathology returned positive for metastatic carcinoma. AFP normal, CEA elevated, CA 19 9 normal Carcinomatosis most compatible with carcinoma from colon metastatic to ascites fluid. General surgery was consulted. Plan for colonoscopy evaluation however due to current ileus this is not feasible. PET-CT is an option however this is not done as an inpatient here. Oncology consulted. CT chest for staging performed which did not show any other metastatic lesions. Status post therapeutic paracentesis with removal of 4.4 L 08/11/2024 of reddish fluid. NG tube placed for ileus. SBFT 08/14 with dilated small bowel and contrast eventually seen in large bowel on the next day which may indicate partial obstruction. Still ongoing with large NG output. Received Dulcolax suppository with benefit. General surgery still suggest evaluation by surgical oncology team at tertiary care facility for further treatment of his condition. Repeat KUB showing nonspecific bowel-gas pattern. He remans NPO. Currently on IV nutrition with TPN He has been accepted at [facility] but awaiting bed placement. Called [facility] but they declined to accept. 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 - Malignant neoplasm of abdomen Status: Acute Assessment and Plan: Most likely abdominal pain related to carcinomatosis, ascites, peritonitis and/or ileus. Oncology consulted and recommended a diagnostic colonoscopy however unlikely patient will be able to have this anytime soon Patient has stage IV metastatic cancer and the prognosis is guarded. They felt treatment would be palliative in nature. As above (3) Ileus: Code(s): K56.7 - Ileus, unspecified Status: Acute Assessment and Plan: As above (4) Enteritis: Code(s): K52.9 - Noninfective gastroenteritis and colitis, unspecified Status: Acute Assessment and Plan: CT scan showing thickening of the distal SB. Possible enteritis versus interstitial edema. Treated with Rocephin but WBC climbed to 23K so changed to IV Zosyn WBC better Zosyn through today then stop. Monitor closely off abx. (5) Diabetes mellitus: Code(s): E11.9 - Type 2 diabetes mellitus without complications Status: Acute Assessment and Plan: A1c 9.0%. The patient's blood glucose was reviewed on 08/18 Glucose reasonably well controlled. On Lantus since on TPN Continue AccuCheks covering with sliding scale. Hypoglycemia protocol available as needed. Continue Lantus (6) Alcohol abuse: Code(s): F10.10 - Alcohol abuse, uncomplicated Status: Acute Assessment and Plan: Patient received banana bag. CIWA protocol was started. CIWA score was up to 16 and he was having auditory hallucinations. Ammonia level low so doubt hepatic encephalopathy and more likely from withdrawal. Continue Thiamine and Folate Librium and Ativan were available as needed. CIWA score normalized. CIWA protocol stopped 08/13. he was educated about the benefits of alcohol cessation (7) Hypertension: Code(s): I10 - Essential (primary) hypertension Status: Acute Assessment and Plan: Patient's blood pressure was reviewed on 08/18 Blood pressure well controlled. Will continue to monitor (8) Liver cirrhosis, alcoholic: Code(s): K70.30 - Alcoholic cirrhosis of liver without ascites Status: Acute Assessment and Plan: Patient with liver cirrhosis noted on CT imaging most likely from alcoholism. Not been to our facility before. RUQ showing small liver with findings c/w cirrhosis. No liver masses noted. AFP level negative. GI following. Check hepatitis panel (9) BPH (benign prostatic hyperplasia): Code(s): N40.0 - Benign prostatic hyperplasia without lower urinary tract symptoms Status: Acute Assessment and Plan: NPO. Monitor for retention. (10) Hypothyroidism: Code(s): E03.9 - Hypothyroidism, unspecified Status: Acute Assessment and Plan: TSH mildly elevated. Continue levothyroxine IV. Will need repeat TSH once he is well Plan DVT prophylaxis SCDs, Lovenox Code status full code Subjective Date/time seen: 08/18/24 14:53 Interval history: 68yo male with BPH, HTN and hypothyroidism here for abdominal pain. Still passing liquid stool. Abd pain about the same. NGT removed accidently by patient and has been replaced. No CP or SOB Exam Narrative: AF 97.8 143/88 80 18 95% ra Gen - NARD HEENT - NGT secured and to suction Chest - CTA bilaterally, nml RR CV - RRR S1/S2 Abd - Soft, distended, +BS, mild diffuse tenderness Ext - trace pedal edema Psych - Nml mood and affect Skin - Warm and dry Objective Data Vital Signs Vital Signs: Vital Signs - 24 hr 08/17/24 18:00 08/17/24 20:04 08/17/24 20:00 Temperature 97.6 F 97.8 F Pulse Rate 74 76 Respiratory Rate 18 20 Blood Pressure 130/68 155/86 H Pulse Oximetry 96 95 Oxygen Delivery Room Air 08/18/24 04:59 08/18/24 08:46 08/18/24 10:00 Temperature 97.3 F L 97.8 F Pulse Rate 73 80 Respiratory Rate 20 18 Blood Pressure 147/80 H 143/88 H Pulse Oximetry 93 95 Oxygen Delivery Room Air Intake/Output Intake/Output: Intake & Output 08/15/24 08/16/24 08/17/24 08/18/24 23:59 23:59 23:59 23:59 Intake Total 2387.3 1452.5 2382.7 2278.7 Output Total 2550 3350 3600 1000 Balance -162.7 -1897.5 -1217.3 1278.7 Meds/Results Medications: Active Medications Generic Name Dose Route Start Last Admin Trade Name Freq PRN Reason Stop Dose Admin Acetaminophen 650 mg 08/07/24 17:40 Acetaminophen 325 Mg Tablet PO Q4H PRN Mild Pain (1-3) or Fever Al Hydrox/Mg Hydrox/Simethicone 30 ml 08/15/24 13:00 08/18/24 14:19 Mag Hydrox/Al Hydrox/Simeth 30 Ml Udc FEED TUBE 30 ml Q8HR MEGGAN Administration Dextrose 12.5 gm 08/07/24 22:17 Dextrose 50% 25 Gm/50 Ml Syringe IV PUSH PRN PRN Hypoglycemia Protocol Docusate Sodium 100 mg 08/08/24 09:00 08/18/24 07:49 Docusate Sodium 100 Mg Capsule PO Not Given BID [facility] Enoxaparin Sodium 40 mg 08/18/24 09:00 08/18/24 08:56 Enoxaparin 40 Mg/0.4 Ml Syringe SUB-Q 40 mg DAILY MEGGAN Administration Finasteride 5 mg 08/08/24 09:00 08/14/24 15:23 Finasteride 5 Mg Tablet PO Not Given DAILY MEGGAN Folic Acid 1 mg 08/15/24 09:00 08/18/24 08:56 Folic Acid 1 Mg/0.2 Ml Inj IV PUSH 1 mg QAM MEGGAN Administration Glucagon 1 mg 08/07/24 22:17 Glucagon For Inj 1 Mg Vial IM PRN PRN Hypoglycemia Protocol Glucose 15 gm 08/07/24 22:17 Glucose Oral Gel 15 Gm Of Glucse In 37.5 Gm Tube PO PRN PRN Hypoglycemia Protocol Dextrose 1,000 mls @ 100 mls/hr 08/07/24 22:17 Dextrose 5% 1,000 Ml IVPB PRN PRN Hypoglycemia Protocol Sodium Chloride 1,000 mls @ 40 mls/hr 08/10/24 16:30 08/18/24 08:52 Normal Saline Iv IV CONT 40 mls/hr .Q24H MEGGAN Administration Dextrose 1,000 mls @ 50 mls/hr 08/12/24 11:57 Dextrose 10% IV CONT .Q20H PRN if PN is interrupted Multivitamins 1.25 ml/ 1,002.5 mls @ 40 mls/hr 08/12/24 13:00 08/18/24 13:11 Multivitamins 1.25 ml/ Amino IV CONT 40 mls/hr Acids/Electrolytes/Dextrose .Q24H MEGGAN Administration Protocol Fat Emulsion Intravenous 250 mls @ 20.833 mls/hr 08/12/24 12:00 08/18/24 13:16 Lipids 20% IVPB 20.8 mls/hr Q24H MEGGAN Administration Insulin Aspart 3 - 6 units 08/10/24 18:00 08/18/24 11:31 Insulin Aspart (*Bkc) 100 Units/Ml SUB-Q Not Given Q6H [facility] Protocol Insulin Glargine 25 units 08/17/24 21:00 08/17/24 21:42 Insulin Glargine (*Bkc) 100 Units/Ml SUB-Q 25 units HS MEGGAN Administration Levothyroxine Sodium 25 mcg 08/14/24 09:00 08/18/24 08:56 Levothyroxine Sodium Inj 100 Mcg/5 Ml Vial IV PUSH 25 mcg Q48H MEGGAN Administration Morphine Sulfate 2 mg 08/11/24 17:56 08/18/24 13:10 Morphine Sulfate (*Crx) 2 Mg/Ml Inj IV PUSH 2 mg Q2H PRN Administration Pain Rated 7-10 Ondansetron HCl 4 mg 08/07/24 15:49 08/16/24 20:01 Ondansetron Inj 4 Mg/2 Ml Vial IV PUSH 4 mg Q4H PRN Administration Nausea Sodium Chloride 10 ml 08/12/24 14:00 08/18/24 13:16 Central Line Flush IV PUSH 10 ml Q8HR MEGGAN Administration Sodium Chloride 10 ml 08/12/24 13:02 Central Line Flush IV PUSH PRN PRN with TPN bag changes Sodium Chloride 20 ml 08/12/24 13:02 08/13/24 05:19 Central Line Flush IV PUSH 20 ml PRN PRN Administration after blood draws Thiamine HCl 100 mg 08/15/24 09:00 08/18/24 08:56 Thiamine Hcl 200 Mg/2 Ml Vial IV PUSH 100 mg QAM MEGGAN Administration Radiology Results: ITS Impressions Upper Quadrant Ultrasound 08/08/24 20:04 IMPRESSION: Cirrhosis. NG Tube Placement 08/10/24 15:41 IMPRESSION: 1. Successful fluoroscopic guided placement of a nasogastric tube which is in expected position with distal tip and proximal side port in the body of the stomach. Chest CT 08/11/24 10:56 IMPRESSION: 1. Peritoneal carcinomatosis. Moderate volume of ascites. 2. Cirrhosis of the liver. Paracentesis Ultrasound 08/11/24 12:36 IMPRESSION: 1. Successful ultrasound-guided paracentesis yielding 4400 mL of reddish fluid. Abdomen/Pelvis CT 08/11/24 17:17 IMPRESSION: 1. Ascites seen in the pelvis, around the liver, right paracolic gutter and around the spleen. Possibility of subcapsular hematoma around the liver cannot be excluded. 2. Liver cirrhosis. 3. Fat stranding in the mesentery which may indicate inflammatory changes or edema. 4. Thickened wall of the small bowel in the area of the pelvis which may indicate enteritis. No air is seen in the wall. Ischemia cannot be excluded. This thickening is slightly more prominent than the previous study. Chest X-Ray 08/12/24 12:50 IMPRESSION: 1. Left PICC line tip at the midsuperior vena cava. 2. Elevation of the right hemidiaphragm with right basilar atelectasis, new since 07/30/2024 but seen on intervening CT from one day prior. Small Bowel X-Ray 08/14/24 17:24 IMPRESSION: 1. Dilated small bowel with contrast remaining within the dilated small bowel at 4 hours, consistent with adynamic ileus versus distal obstruction. Abdomen X-Ray 08/18/24 07:34 Impression: NG tube in satisfactory position. Labs Labs: Laboratory Results - last 24 hr 08/17/24 08/17/24 08/17/24 17:06 21:42 23:44 Sodium Potassium Chloride Carbon Dioxide Anion Gap BUN Creatinine Estim Creat Clear Calc Estimated GFR Glucose POC Capillary Glucose 219 H 207 H 200 H Calcium Phosphorus 08/18/24 08/18/24 08/18/24 00:19 05:27 05:34 Sodium 142 Potassium 3.5 Chloride 101 Carbon Dioxide 38 H Anion Gap 3 L BUN 20 Creatinine 0.90 Estim Creat Clear Calc 80 Estimated GFR > 60 Glucose 192 H POC Capillary Glucose 201 H 198 H Calcium 8.1 L Phosphorus 3.4 08/18/24 08/18/24 08:15 11:18 Sodium Potassium Chloride Carbon Dioxide Anion Gap BUN Creatinine Estim Creat Clear Calc Estimated GFR Glucose POC Capillary Glucose 192 H 169 H Calcium Phosphorus
[2024-08-18 16:19] LABS: Glucose Point of Care 164 mg/dl (65-105)
--- NOTE | 2024-08-18 16:33 | WPDONCPN ---
Progress Note: A/P (1) Abdominal carcinomatosis Code(s): C76.2 - Malignant neoplasm of abdomen Status: Acute - Additional Plan Patient with new diagnosis of peritoneal carcinomatosis on abdominal CT scan performed on 08/08/2024. A diagnostic paracentesis was performed on 08/08/2024 which showed metastatic carcinoma of GI primary. Patient has ileus at this time and has NG tube placed. Cancer enzymes performed shows normal CA 19-9 but high CEA at 61.2 on 08/09/24. GI team is following the patient. We recommended a diagnostic colonoscopy however per GI note today the possibility of colonoscopy is rare. Patient has stage IV metastatic cancer and the prognosis is guarded. Any treatment rendered will be palliative in nature. 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 Oncology is going to continue to follow peripherally. - Time Spent With Patient Total time spent is greater than 50% in coordination of care (as documented) at patient's floor/unit and/or counseling patient: 15 - 25 minutes Subjective Interval history: Patient seen at bedside today. NG in place with large output, Passing gas and small BM with suppository. Review of Systems - Review of Systems Patient feels depressed and states that he is disappointed that there is no significant change in his bowels. Taking ice water swish and spit. Denies f/c, night sweats. denies chest pain or dyspnea. No cough or hemoptysis. Has abdominal pain and distention. - Neurologic Reports weakness Exam - Constitutional moderate distress - Routine HEENT Exam Head: Present: atraumatic - Routine Respiratory Exam Present: CTAB - Routine Cardiovascular Exam Cardiovascular: Present: RRR, S1 - Routine Abdominal Exam Present: distended, firm, guarding - Routine Skin Exam Present: dry PN: Objective Data - Labs CBC & Chem 7: 08/17/24 05:45 08/18/24 05:27 Labs: Laboratory Results - last 24 hr 08/17/24 08/17/24 08/17/24 17:06 21:42 23:44 Sodium Potassium Chloride Carbon Dioxide Anion Gap BUN Creatinine Estim Creat Clear Calc Estimated GFR Glucose POC Capillary Glucose 219 H 207 H 200 H Calcium Phosphorus 08/18/24 08/18/24 08/18/24 00:19 05:27 05:34 Sodium 142 Potassium 3.5 Chloride 101 Carbon Dioxide 38 H Anion Gap 3 L BUN 20 Creatinine 0.90 Estim Creat Clear Calc 80 Estimated GFR > 60 Glucose 192 H POC Capillary Glucose 201 H 198 H Calcium 8.1 L Phosphorus 3.4 08/18/24 08/18/24 08/18/24 08:15 11:18 16:14 Sodium Potassium Chloride Carbon Dioxide Anion Gap BUN Creatinine Estim Creat Clear Calc Estimated GFR Glucose POC Capillary Glucose 192 H 169 H 164 H Calcium Phosphorus
[2024-08-18 18:00] VITALS: BP 158/88; PULSE 78; RESP 18; TEMP 37.1; O2SAT 95
[2024-08-18 18:22] LABS: Glucose Point of Care 202 mg/dl (65-105)
[2024-08-18] MEDS: INSULIN ASPART (*BKC) 100 UNITS/ML SUB-Q (18:26)
[2024-08-18 19:58] VITALS: BP 133/88; PULSE 82; RESP 16; TEMP 36.3; O2SAT 95
[2024-08-18 20:23] LABS: Glucose Point of Care 168 mg/dl (65-105)
[2024-08-18] MEDS: INSULIN GLARGINE (*BKC) 100 UNITS/ML 25 UNITS SUB-Q (22:10)
[2024-08-19 00:26] LABS: Glucose Point of Care 200 mg/dl (65-105)
[2024-08-19] MEDS: MORPHINE SULFATE (*CRX) 2 MG/ML INJ IV PUSH ×4 (04:21→17:17)
[2024-08-19 04:45] VITALS: BP 131/89; PULSE 82; RESP 18; TEMP 36.3; O2SAT 94
[2024-08-19 05:44] LABS: Glucose Point of Care 179 mg/dl (65-105)
[2024-08-19] MEDS: MAG HYDROX/AL HYDROX/SIMETH 30 ML UDC FEED TUBE ×2 (05:51→13:57)
[2024-08-19] MEDS: CENTRAL LINE FLUSH 10 ML IV PUSH (05:51)
[2024-08-19 06:11] LABS: Anion Gap 4 mmol/L (4-12); Blood Urea Nitrogen 19 mg/dL (9-20); Calcium 8.2 mg/dL (8.4-10.2); Carbon Dioxide 33 mmol/L (22-30); Chloride 102 mmol/L (98-107); Estimated CRCL calculation 101 ml/min; Estimated Glomerular Filt Rate > 60; Glucose 202 mg/dL (65-110); Phosphorus 3.4 mg/dL (2.5-4.5); Potassium 3.4 mmol/L (3.4-5.0); Sodium 139 mmol/L (137-145)
[2024-08-19 06:37] LABS: Hepatitis B Surface Antigen Negative (Negative)
[2024-08-19 06:43] LABS: HAV RESULT Negative (Negative); Hepatitis B Core IgM Result Negative (Negative)
[2024-08-19 06:54] LABS: Hepatitis C Virus Antibody Negative (Negative)
--- NOTE | 2024-08-19 08:06 | WPDONCPN ---
Progress Note: A/P (1) Abdominal carcinomatosis Code(s): C76.2 - Malignant neoplasm of abdomen Status: Acute - Additional Plan Patient with new diagnosis of peritoneal carcinomatosis on abdominal CT scan performed on 08/08/2024. A diagnostic paracentesis was performed on 08/08/2024 which showed metastatic carcinoma of GI primary. Patient has ileus at this time and has NG tube placed. Cancer enzymes performed shows normal CA 19-9 but high CEA at 61.2 on 08/09/24. GI team is following the patient. We recommended a diagnostic colonoscopy however per GI note today the possibility of colonoscopy is rare. Patient has stage IV metastatic cancer and the prognosis is guarded. Any treatment rendered will be palliative in nature. 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 Patient had 2 large bowel movements today and I am hopeful that he might be able to get colonoscopy dex admission. Oncology is going to continue to follow peripherally. - Time Spent With Patient Total time spent is greater than 50% in coordination of care (as documented) at patient's floor/unit and/or counseling patient: 15 - 25 minutes Subjective Interval history: Patient seen at bedside today. Patient had two large BMs this morning. NG still in place. Review of Systems - Review of Systems Patient feel better this morning after 2 large bowel movements. States that the bloating and abdominal pain is much better. NG is still in place with some output. Denies any fevers overnight. Denies chest pain shortness of breath cough or phlegm production. Rest of the 12 point review of system is negative - Neurologic Reports weakness Exam - Constitutional moderate distress - Routine HEENT Exam Head: Present: atraumatic - Routine Respiratory Exam Present: CTAB - Routine Cardiovascular Exam Cardiovascular: Present: RRR, S1 - Routine Abdominal Exam Present: distended, firm, guarding - Routine Skin Exam Present: dry PN: Objective Data - Labs CBC & Chem 7: 08/17/24 05:45 08/19/24 05:05 Labs: Laboratory Results - last 24 hr 08/18/24 08/18/24 08/18/24 08:15 11:18 16:14 Sodium Potassium Chloride Carbon Dioxide Anion Gap BUN Creatinine Estim Creat Clear Calc Estimated GFR Glucose POC Capillary Glucose 192 H 169 H 164 H Calcium Phosphorus Hepatitis A IgM Ab Hep Bs Antigen Hep B Core IgM Ab Hepatitis C Ab Screen 1108/18/24 08/19/24 18:19 20:02 00:24 Sodium Potassium Chloride Carbon Dioxide Anion Gap BUN Creatinine Estim Creat Clear Calc Estimated GFR Glucose POC Capillary Glucose 202 H 168 H 200 H Calcium Phosphorus Hepatitis A IgM Ab Hep Bs Antigen Hep B Core IgM Ab Hepatitis C Ab Screen 08/19/24 08/19/24 08/19/24 05:04 05:05 05:37 Sodium 139 Potassium 3.4 Chloride 102 Carbon Dioxide 33 H Anion Gap 4 BUN 19 Creatinine 0.70 Estim Creat Clear Calc 101 Estimated GFR > 60 Glucose 202 H POC Capillary Glucose 179 H Calcium 8.2 L Phosphorus 3.4 Hepatitis A IgM Ab Negative Hep Bs Antigen Negative Hep B Core IgM Ab Negative Hepatitis C Ab Screen Negative
[2024-08-19] MEDS: ENOXAPARIN 40 MG/0.4 ML SYRINGE SUB-Q (09:09)
[2024-08-19] MEDS: THIAMINE HCL 200 MG/2 ML VIAL 100 MG IV PUSH (09:10)
[2024-08-19 09:11] LABS: Glucose Point of Care 216 mg/dl (65-105)
[2024-08-19] MEDS: FOLIC ACID 1 MG/0.2 ML INJ IV PUSH (09:11)
[2024-08-19 09:58] LABS: Triglycerides 153 mg/dL (<150)
[2024-08-19 10:00] VITALS: BP 128/84; PULSE 78; RESP 17; TEMP 36.4; O2SAT 95
--- NOTE | 2024-08-19 11:03 | PC.NURSE ---
NG noted to be in proximal duodenum on AM abdominal XR. Spoke with Dr. Plaza to discuss placement. Provider requesting to reposition by 10cm. Called Dr. Espinal regarding placement of NG to clarify if a new NG needs to be placed or if OK to withdraw 10cm. OK per Dr. Espinal to withdraw 10cm. NG noted to be in stomach per radiology report @1045. Placed back to [facility] as ordered.
[2024-08-19 12:16] LABS: Glucose Point of Care 179 mg/dl (65-105)
[2024-08-19] MEDS: MULTIVITAMINS IV CONT (12:33)
[2024-08-19] MEDS: [UNRECOGNIZED DRUG - OTHER] IV CONT (12:33)
[2024-08-19] MEDS: FAT EMULSIONS IV 20% 250 ML 20.8 ML IVPB (12:33)
--- NOTE | 2024-08-19 13:14 | P.PNIM_ITS ---
Progress Note: A&P Assessment and Plan (1) Ascites: Code(s): R18.8 - Other ascites Status: Acute Assessment and Plan: Patient presents with abdominal pain. CT Abd/pelvis showing moderate ascites with peritoneal nodularity consistent with carcinomatosis, wall thickening of the distal SB and liver cirrhosis. Paracentesis in the ER had bloody fluid and removal of 800 mL of dark reddish fluid. Rocephin x 1 given. RBC 36K, WBC 2K with 20 PMNs. Absolute PMNs 400. 256 if corrected for RBCs. Since >250 PMN cells, he was treated with IV abx for peritonitis. Gram stain showing WBC but no organisms. BCx negative. Pathology returned positive for metastatic carcinoma. AFP normal, CEA elevated, CA 19 9 normal Carcinomatosis most compatible with colon cancer with mets GI and General surgery was consulted. Plan for colonoscopy evaluation however due to current ileus this is not feasible. PET-CT is an option however this is not done as an inpatient here. Oncology consulted. CT chest for staging performed which did not show any other metastatic lesions. Status post therapeutic paracentesis with removal of 4.4 L 08/11/2024 of reddish fluid. NG tube placed for ileus. SBFT 08/14 with dilated small bowel and contrast eventually seen in large bowel on the next day which may indicate partial obstruction. Ileus still ongoing with large NG output 1700->2650->2650->1500->1000mL so far today. Received Dulcolax suppository with stool output. Now having diarrhea felt related to contrast finally reaching distal bowel. General surgery still suggest evaluation by surgical oncology team at tertiary care facility for further treatment of his condition. He has been accepted at [facility] but awaiting bed placement. Called [facility] but they declined to accept. Repeat KUB showing dilated SB. He remans NPO. Currently on IV nutrition with TPN. Monitor NGT output. Have patient up walking in the halls TID. 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 - Malignant neoplasm of abdomen Status: Acute Assessment and Plan: Most likely abdominal pain related to carcinomatosis, ascites, peritonitis and/or ileus. Oncology consulted and recommended a diagnostic colonoscopy however unlikely pa genoveva will be able to have this anytime soon Patient has stage IV metastatic cancer and the prognosis is guarded. They felt treatment would be palliative in nature. As above (3) Ileus: Code(s): K56.7 - Ileus, unspecified Status: Acute Assessment and Plan: As above (4) Enteritis: Code(s): K52.9 - Noninfective gastroenteritis and colitis, unspecified Status: Acute Assessment and Plan: CT scan showing thickening of the distal SB. Possible enteritis versus interstitial edema. Treated with Rocephin but WBC climbed to 23K so changed to IV Zosyn to complete a course. WBC better. Zosyn stopped 08/18. Monitor closely off abx. (5) Diabetes mellitus: Code(s): E11.9 - Type 2 diabetes mellitus without complications Status: Acute Assessment and Plan: A1c 9.0%. The patient's blood glucose was reviewed on 08/19 Glucose reasonably well controlled. On Lantus since on TPN Continue AccuCheks covering with sliding scale. Hypoglycemia protocol available as needed. Continue Lantus (6) Alcohol abuse: Code(s): F10.10 - Alcohol abuse, uncomplicated Status: Acute Assessment and Plan: Patient received banana bag. CIWA protocol was started. CIWA score was up to 16 and was having auditory hallucinations. Ammonia level low so doubt hepatic encephalopathy and more likely from withdrawal. Librium and Ativan were available as needed. CIWA score normalized. CIWA protocol stopped 08/13. He was educated about the benefits of alcohol cessation (7) Hypertension: Code(s): I10 - Essential (primary) hypertension Status: Acute Assessment and Plan: Patient's blood pressure was reviewed on 08/19 Blood pressure well controlled. Will continue to monitor (8) Liver cirrhosis, alcoholic: Code(s): K70.30 - Alcoholic cirrhosis of liver without ascites Status: Acute Assessment and Plan: Patient with liver cirrhosis noted on CT imaging most likely from alcoholism. Not been to our facility before. RUQ showing small liver with findings c/w cirrhosis. Hepatitis panel negative. No liver masses noted. AFP level negative. GI following. (9) BPH (benign prostatic hyperplasia): Code(s): N40.0 - Benign prostatic hyperplasia without lower urinary tract symptoms Status: Acute Assessment and Plan: NPO. Monitor for retention. (10) Hypothyroidism: Code(s): E03.9 - Hypothyroidism, unspecified Status: Acute Assessment and Plan: TSH mildly elevated. Continue levothyroxine IV. Will need repeat TSH once he is well Plan DVT prophylaxis SCDs, Lovenox Code status full code Subjective Date/time seen: 08/19/24 13:14 Interval history: 68yo male with BPH, HTN and hypothyroidism here for abdominal pain. Patient had excessive amount of stool output last night with incontinence. Abd pain better. No n/v. Exam Narrative: AF 97.5 128/84 78 17 95% ra Gen - NARD HEENT - NGT secured and to suction Chest - CTA bilaterally, nml RR CV - RRR S1/S2 Abd - Soft, distended and tympanitic upper abd. +BS Ext - no pedal edema Psych - Nml mood and affect Skin - Warm and dry Objective Data Vital Signs Vital Signs: Vital Signs - 24 hr 08/18/24 14:00 08/18/24 18:00 08/18/24 19:58 Temperature 98.2 F 98.7 F 97.3 F L Pulse Rate 77 78 82 Respiratory Rate 18 18 16 Blood Pressure 139/89 158/88 H 133/88 Pulse Oximetry 94 95 95 Oxygen Delivery 08/18/24 21:30 08/19/24 04:45 08/19/24 09:07 Temperature 97.3 F L Pulse Rate 82 Respiratory Rate 18 Blood Pressure 131/89 Pulse Oximetry 94 Oxygen Delivery Room Air Room Air 08/19/24 10:00 Temperature 97.5 F L Pulse Rate 78 Respiratory Rate 17 Blood Pressure 128/84 Pulse Oximetry 95 Oxygen Delivery Intake/Output Intake/Output: Intake & Output 08/16/24 08/17/24 08/18/24 08/19/24 23:59 23:59 23:59 23:59 Intake Total 1452.5 2382.7 2278.7 1234.7 Output Total 3350 3600 1999 1000 Balance -1897.5 -1217.3 278.7 234.7 Meds/Results Medications: Active Medications Generic Name Dose Route Start Last Admin Trade Name Freq PRN Reason Stop Dose Admin Acetaminophen 650 mg 08/07/24 17:40 Acetaminophen 325 Mg Tablet PO Q4H PRN Mild Pain (1-3) or Fever Al Hydrox/Mg Hydrox/Simethicone 30 ml 08/15/24 13:00 08/19/24 05:51 Mag Hydrox/Al Hydrox/Simeth 30 Ml Udc FEED TUBE 30 ml Q8HR MEGGAN Administration Dextrose 12.5 gm 08/07/24 22:17 Dextrose 50% 25 Gm/50 Ml Syringe IV PUSH PRN PRN Hypoglycemia Protocol Docusate Sodium 100 mg 08/08/24 09:00 08/19/24 08:09 Docusate Sodium 100 Mg Capsule PO Not Given BID MEGGAN Enoxaparin Sodium 40 mg 08/18/24 09:00 08/19/24 09:09 Enoxaparin 40 Mg/0.4 Ml Syringe SUB-Q 40 mg DAILY MEGGAN Administration Finasteride 5 mg 08/08/24 09:00 08/14/24 15:23 Finasteride 5 Mg Tablet PO Not Given DAILY MEGGAN Folic Acid 1 mg 08/15/24 09:00 08/19/24 09:11 Folic Acid 1 Mg/0.2 Ml Inj IV PUSH 1 mg QAM MEGGAN Administration Glucagon 1 mg 08/07/24 22:17 Glucagon For Inj 1 Mg Vial IM PRN PRN Hypoglycemia Protocol Glucose 15 gm 08/07/24 22:17 Glucose Oral Gel 15 Gm Of Glucse In 37.5 Gm Tube PO PRN PRN Hypoglycemia Protocol Dextrose 1,000 mls @ 100 mls/hr 08/07/24 22:17 Dextrose 5% 1,000 Ml IVPB PRN PRN Hypoglycemia Protocol Sodium Chloride 1,000 mls @ 40 mls/hr 08/10/24 16:30 08/18/24 08:52 Normal Saline Iv IV CONT 40 mls/hr .Q24H MEGGAN Administration Dextrose 1,000 mls @ 50 mls/hr 08/12/24 11:57 Dextrose 10% IV CONT .Q20H PRN if PN is interrupted Multivitamins 1.25 ml/ 1,002.5 mls @ 40 mls/hr 08/12/24 13:00 08/19/24 12:33 Multivitamins 1.25 ml/ Amino IV CONT 40 mls/hr Acids/Electrolytes/Dextrose .Q24H MEGGAN Administration Protocol Fat Emulsion Intravenous 250 mls @ 20.833 mls/hr 08/12/24 12:00 08/19/24 12:33 Lipids 20% IVPB 20.8 mls/hr Q24H MEGGAN Administration Insulin Aspart 3 - 6 units 08/10/24 18:00 08/19/24 12:30 Insulin Aspart (*Bkc) 100 Units/Ml SUB-Q Not Given Q6H [facility] Protocol Insulin Glargine 25 units 08/17/24 21:00 08/18/24 22:10 Insulin Glargine (*Bkc) 100 Units/Ml SUB-Q 25 units HS MEGGAN Administration Levothyroxine Sodium 25 mcg 08/14/24 09:00 08/18/24 08:56 Levothyroxine Sodium Inj 100 Mcg/5 Ml Vial IV PUSH 25 mcg Q48H MEGGAN Administration Morphine Sulfate 2 mg 08/11/24 17:56 08/19/24 12:34 Morphine Sulfate (*Crx) 2 Mg/Ml Inj IV PUSH 2 mg Q2H PRN Administration Pain Rated 7-10 Ondansetron HCl 4 mg 08/07/24 15:49 08/16/24 20:01 Ondansetron Inj 4 Mg/2 Ml Vial IV PUSH 4 mg Q4H PRN Administration Nausea Sodium Chloride 10 ml 08/12/24 14:00 08/19/24 05:51 Central Line Flush IV PUSH 10 ml Q8HR MEGGAN Administration Sodium Chloride 10 ml 08/12/24 13:02 Central Line Flush IV PUSH PRN PRN with TPN bag changes Sodium Chloride 20 ml 08/12/24 13:02 08/13/24 05:19 Central Line Flush IV PUSH 20 ml PRN PRN Administration after blood draws Thiamine HCl 100 mg 08/15/24 09:00 08/19/24 09:10 Thiamine Hcl 200 Mg/2 Ml Vial IV PUSH 100 mg QAM MEGGAN Administration Radiology Results: ITS Impressions Upper Quadrant Ultrasound 08/08/24 20:04 IMPRESSION: Cirrhosis. NG Tube Placement 08/10/24 15:41 IMPRESSION: 1. Successful fluoroscopic guided placement of a nasogastric tube which is in expected position with distal tip and proximal side port in the body of the stomach. Chest CT 08/11/24 10:56 IMPRESSION: 1. Peritoneal carcinomatosis. Moderate volume of ascites. 2. Cirrhosis of the liver. Paracentesis Ultrasound 08/11/24 12:36 IMPRESSION: 1. Successful ultrasound-guided paracentesis yielding 4400 mL of reddish fluid. Abdomen/Pelvis CT 08/11/24 17:17 IMPRESSION: 1. Ascites seen in the pelvis, around the liver, right paracolic gutter and around the spleen. Possibility of subcapsular hematoma around the liver cannot be excluded. 2. Liver cirrhosis. 3. Fat stranding in the mesentery which may indicate inflammatory changes or edema. 4. Thickened wall of the small bowel in the area of the pelvis which may indicate enteritis. No air is seen in the wall. Ischemia cannot be excluded. This thickening is slightly more prominent than the previous study. Chest X-Ray 08/12/24 12:50 IMPRESSION: 1. Left PICC line tip at the midsuperior vena cava. 2. Elevation of the right hemidiaphragm with right basilar atelectasis, new since 07/30/2024 but seen on intervening CT from one day prior. Small Bowel X-Ray 08/14/24 17:24 IMPRESSION: 1. Dilated small bowel with contrast remaining within the dilated small bowel at 4 hours, consistent with adynamic ileus versus distal obstruction. Abdomen X-Ray 08/19/24 10:31 IMPRESSION: 1. Nasogastric tube tip in the distal stomach. 2. Dilated small bowel, consistent with adynamic ileus versus small bowel obstruction. Labs Labs: Laboratory Results - last 24 hr 08/18/24 08/18/24 08/18/24 16:14 18:19 20:02 Sodium Potassium Chloride Carbon Dioxide Anion Gap BUN Creatinine Estim Creat Clear Calc Estimated GFR Glucose POC Capillary Glucose 164 H 202 H 168 H Calcium Phosphorus Triglycerides Hepatitis A IgM Ab Hep Bs Antigen Hep B Core IgM Ab Hepatitis C Ab Screen 08/19/24 08/19/24 08/19/24 00:24 05:04 05:05 Sodium 139 Potassium 3.4 Chloride 102 Carbon Dioxide 33 H Anion Gap 4 BUN 19 Creatinine 0.70 Estim Creat Clear Calc 101 Estimated GFR > 60 Glucose 202 H POC Capillary Glucose 200 H Calcium 8.2 L Phosphorus 3.4 Triglycerides 153 H Hepatitis A IgM Ab Negative Hep Bs Antigen Negative Hep B Core IgM Ab Negative Hepatitis C Ab Screen Negative 08/19/24 08/19/24 08/19/24 05:37 09:07 12:09 Sodium Potassium Chloride Carbon Dioxide Anion Gap BUN Creatinine Estim Creat Clear Calc Estimated GFR Glucose POC Capillary Glucose 179 H 216 H 179 H Calcium Phosphorus Triglycerides Hepatitis A IgM Ab Hep Bs Antigen Hep B Core IgM Ab Hepatitis C Ab Screen
[2024-08-19] MEDS: SODIUM CHLORIDE 0.9% IV 1,000 ML 40 ML IV CONT (13:58)
[2024-08-19 14:00] VITALS: BP 130/74; PULSE 74; RESP 17; TEMP 36.4; O2SAT 95
[2024-08-19 17:31] LABS: Glucose Point of Care 183 mg/dl (65-105)
[2024-08-19 18:00] VITALS: BP 134/64; PULSE 70; RESP 18; TEMP 36.4; O2SAT 95
--- NOTE | 2024-08-19 18:26 | PC.NURSE ---
Report called to Fatuma Poe RN at [facility]. [facility] to be transferred to [facility] bed [facility].
--- NOTE | 2024-08-19 19:06 | PC.NURSE ---
Spoke to supervisor chemical regarding NG placement as patient is to transfer to [facility] shortly. Dinkey Dispatcher called Dr. San to confirm placement. Dr. San stated NG is in stomach. Awaiting radiology report.
--- NOTE | 2024-08-20 15:36 | PM.TDS ---
Transfer Discharge Sum: Prov Provider Date of admission: 08/08/24 11:29 Primary care physician: Ruth Chavez, RADIOGRAPHER TECHNOLOGIST Admitting clinician: Ebony Coon MD Consults: 08/08/24 14:34 Consult to Physician Routine Comment: Spoke to Dr Rosa @ 15:19pm (-) Consulting Provider: Tristan Dave train caller/MD group to consult: GI consult Reason for consultation: ascites, possible carcinomatosis Has provider been notified: Yes 08/08/24 14:45 Consult to Dietitian Routine Reason for Consult:: cirrhosis, DM 08/09/24 Consult to Physician Routine Comment: Spoke to Dr shanks 08/09 1007 ([facility]) Consulting Provider: Zelalem Figueroa train caller/MD group to consult: On-call general surgeon Reason for consultation: Peritoneal carcinomatosis, may need diagnostic laparoscope Has provider been notified: Yes 08/10/24 09:02 Consult to Physician Routine Comment: Consulting Provider: Kinjal Neff train caller/MD group to consult: oncology Reason for consultation: metastatic carcinoma Has provider been notified: Yes 08/12/24 11:57 Consult to Dietitian Routine Reason for Consult:: TPN DS: Admitting Diagnosis Discharge Date 08/19/24 Admitting Diagnosis Abdominal pain DS: Discharge Diagnosis Discharge Diagnosis (1) Ascites: Code(s): R18.8 - Other ascites Status: Acute 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 - Malignant neoplasm of abdomen Status: Acute (3) Ileus: Code(s): K56.7 - Ileus, unspecified Status: Acute (4) Enteritis: Code(s): K52.9 - Noninfective gastroenteritis and colitis, unspecified Status: Acute (5) Diabetes mellitus: Code(s): E11.9 - Type 2 diabetes mellitus without complications Status: Acute (6) Alcohol abuse: Code(s): F10.10 - Alcohol abuse, uncomplicated Status: Acute (7) Hypertension: Code(s): I10 - Essential (primary) hypertension Status: Acute (8) Liver cirrhosis, alcoholic: Code(s): K70.30 - Alcoholic cirrhosis of liver without ascites Status: Acute (9) BPH (benign prostatic hyperplasia): Code(s): N40.0 - Benign prostatic hyperplasia without lower urinary tract symptoms Status: Acute (10) Hypothyroidism: Code(s): E03.9 - Hypothyroidism, unspecified Status: Acute Transfer Discharge Sum: Med Medications Active and Home Medications: Home Medications amlodipine 10 mg tablet 10 mg PO DAILY 08/07/24 [History Confirmed 08/07/24] diclofenac sodium 75 mg tablet,delayed release 75 mg PO DAILY 08/07/24 [History Confirmed 08/07/24] finasteride 5 mg tablet 5 mg PO DAILY 08/07/24 [History Confirmed 08/07/24] levothyroxine 25 mcg tablet 25 mcg PO DAILY 08/07/24 [History Confirmed 08/07/24] losartan 100 mg tablet 100 mg PO HS 08/07/24 [History Confirmed 08/07/24] tadalafil 5 mg tablet 5 mg PO DAILY 08/07/24 [History Confirmed 08/07/24] Transfer Discharge Sum: Hosp Hospital Course Hospital course: Edwin Rhoades is a 68yo male with BPH, HTN and hypothyroidism here for abdominal pain. Please see H&P for details. Patient presented with abdominal pain. CT Abd/pelvis showing moderate ascites with peritoneal nodularity consistent with carcinomatosis, wall thickening of the distal SB and liver cirrhosis. Paracentesis in the ER had bloody fluid and removal of 800 mL of dark reddish fluid. Rocephin x 1 given. RBC 36K, WBC 2K with 20 PMNs. Absolute PMNs 400. 256 if corrected for RBCs. Since >250 PMN cells, he was treated with IV abx for peritonitis. Gram stain showing WBC but no organisms. BCx negative. Treated with Rocephin initially but WBC climbed to 23K so changed to IV Zosyn to complete a course. WBC better. Zosyn stopped 08/18. Pathology returned positive for metastatic carcinoma. AFP normal, CEA elevated, CA 19 9 normal. Carcinomatosis most compatible with colon cancer with mets. GI and General surgery was consulted. Plan for colonoscopy evaluation however due to current ileus this is not feasible. PET-CT is an option however this is not done as an inpatient here. Oncology consulted. CT chest for staging performed which did not show any other metastatic lesions. Status post therapeutic paracentesis with removal of 4.4 L 08/11/2024 of reddish fluid. NG tube placed for ileus and he was started on TPN. SBFT 11/4 with dilated small bowel and contrast eventually seen in large bowel on the next day which may indicate partial obstruction. Ileus still ongoing with large NG output. Most likely abdominal pain related to carcinomatosis, ascites, peritonitis and/or ileus. Patient has stage IV metastatic cancer and the prognosis is guarded and oncology felt treatment would be palliative in nature. Patient with diabetes mellitus. A1c 9.0%. The patient's blood glucose was monitored with AccuCheks covering with sliding scale. Hypoglycemia protocol was available as needed. Patient with hx of alcohol abuse. Patient received banana bag. CIWA protocol was started. CIWA score was up to 16 and was having auditory hallucinations. Ammonia level low so doubt hepatic encephalopathy and more likely from withdrawal. Librium and Ativan were available as needed. CIWA score normalized. CIWA protocol stopped 08/13. He was educated about the benefits of alcohol cessation. Patient with liver cirrhosis noted on CT imaging most likely from alcoholism. Not been to our facility before. RUQ showing small liver with findings c/w cirrhosis. Hepatitis panel negative. No liver masses noted. AFP level negative. TSH mildly elevated. We continued levothyroxine IV. Will need repeat TSH once he is well. Received Dulcolax suppository with stool output. Now having diarrhea felt related to contrast finally reaching distal bowel but still with dilated SB with large NGT output. General surgery suggested evaluation by surgical oncology team at tertiary care facility for further treatment of his condition. [facility] and was transferred in stable condition on 08/19/24. Time Spent with Patient Time attestation: Total time spent providing and/or coordinating transfer services: 40 minutes Total time spent: Greater than 30 minutes Exam Narrative: AF 97.5 128/84 78 17 95% ra Gen - NARD HEENT - NGT secured and to suction Chest - CTA bilaterally, nml RR CV - RRR S1/S2 Abd - Soft, distended and tympanitic upper abd. +BS Ext - no pedal edema Psych - Nml mood and affect Skin - Warm and dry DS: Data Data Completed and Pending Completed studies during hospitalization: Pending at discharge 08/07/24 14:53 Cytology [PTH] Routine Labs on day of discharge: Labs from last 24 hours 08/19/24 17:28 POC Capillary Glucose 183 H
[2024-08-24 19:48] LABS: Albumin Peritoneal Fluid 2.2 g/dL; Amylase Peritoneal Fluid <10 U/L
== END 2024-08-19 19:20 | disposition short-term general hospital (02) | DRG 374 ==
LOC: ANHED 12:01 → ANH2MED 17:32
PROVIDERS: Emergency Medicine; Internal Medicine; Nurse Practitioner Gerontology; Admitting Provider Family Medicine; Emergency Provider Registered Nurse; PCP Nurse Practitioner; Visit Provider Internal Medicine
DX: C78.6 Secondary malignant neoplasm of retroperitoneum and peritoneum (principal); K65.2 Spontaneous bacterial peritonitis; C18.9 Malignant neoplasm of colon, unspecified; R18.0 Malignant ascites; K56.7 Ileus, unspecified; I10 Essential (primary) hypertension; E03.9 Hypothyroidism, unspecified; E11.9 Type 2 diabetes mellitus without complications; K52.9 Noninfective gastroenteritis and colitis, unspecified; K70.30 Alcoholic cirrhosis of liver without ascites; N40.0 Benign prostatic hyperplasia without lower urinary tract symptoms; F10.10 Alcohol abuse, uncomplicated; Z87.891 Personal history of nicotine dependence
CPT/HCPCS: 36415; 36569; 49083; 71045; 71046; 71260; 74018; 74019; 74176; 74177; 74250; 76705; 80048; 80053; 80074; 81001; 82042; 82105; 82140; 82150; 82378; 82607; 82746; 82945; 82948; 83036; 83605; 83615; 83690; 83735; 84100; 84157; 84439; 84443; 84466; 84478; 84480; 84484; 85025; 85610; 85730; 86301; 87040; 87070; 87075; 87205; 88108; 88305; 88342; 89051; 93005; 96361; 96365; 96366; 96367; 96375; 96376; 99285; A9270; G0378; J0650; J0696; J1171; J1650; J1815; J2003; J2060; J2270; J2405; J2543; J3411; J3475; J3480; J7030; Q9967

== ENCOUNTER 2024-09-29 11:06 | Emergency (ER) | payer MEDICARE, SELFPAY ==
[2024-09-29] VITALS (8 sets, daily range): BP systolic 107–121; BP diastolic 65–72; PULSE 61–76; RESP 13–18; TEMP 36.6–36.7; O2SAT 93–96
--- NOTE | ~2024-09-29 | CT_ITS ---
EXAMINATION: CT abdomen pelvis w con DATE: 09/29/2024 12:02 INDICATION: Lower abdominal pain. Stage IV colon cancer. TECHNIQUE: Computed tomography (CT) of the abdomen and pelvis was performed with 100 mL Omnipaque-350 intravenous contrast. Automated exposure control and iterative reconstruction technique were employe d. The dose-length product was 1079.65 mGy-cm. COMPARISON: 08/11/2024 and 08/07/2024 FINDINGS: Discoid atelectasis at the right middle and lower lobes. Heart size is normal. Atherosclerotic sr ry artery calcific location. No pericardial or pleural effusion. Nodular cirrhotic liver with diffuse hepatic steatosis there are a few scattered hypodense hepatic lesions measuring up to 1.2 cm. Cholec ystectomy clips the gallbladder fossa. Spleen, pancreas and bilateral adrenal glands are normal. Bila teral renal cysts the largest on the right measuring 1.1 cm. Normal appendix. No bowel obstruction. T here are multiple diverticula along the sigmoid colon without adjacent comparison to suggest divertic ulitis. There has been significant interval improvement in the previously extensive mesenteric and om ental stranding. There are some persistent stranding with mild nodularity in the greater omentum in t he left abdomen and right lower quadrant and small residual haziness to the mesenteric fat such with a few loops of small bowel in the anterior pelvis. The previously seen ascites has resolved. Again se en are multiple lymph nodes along the ileocolic chain which are more notable for number than size. No pathologically enlarged abdominal or pelvic lymphadenopathy. Bladder is unremarkable. Mild prostatom egaly. Thoracolumbar dextrocurvature with severe lower lumbar spondylosis. Chronic mild likely physio logic anterior wedging at T12 and L1. IMPRESSION: 1. Resolution of prior ascites and decrease in the amount of nodular omental stranding and haziness i n the small bowel mesenteric fat in the pelvis consistent with likely response to treatment of perito felicia carcinomatosis. 2. Cirrhotic liver and diffuse hepatic steatosis with multiple small hypodense hepatic lesions with d ifferential including cirrhotic regenerative nodules, focal fat, hemangiomas, metastatic disease or s ome combination thereof. Although given the background cirrhosis could not exclude primary hepatocell ular carcinoma for any given lesion, this would be unlikely to account for the multiplicity of lesion s. Could consider further evaluation with pre and postcontrast MRI as clinically indicated. Reviewed, dictated and finalized at location A. FARM GAUGER IMPRESSION: 1. Resolution of prior ascites and decrease in the amount of nodular omental st randing and haziness in the small bowel mesenteric fat in the pelvis consistent with likely response to treatment of peritoneal carcinomatosis. 2. Cirrhotic liver and diffuse hepatic steatosis with multiple small hypodense hepatic lesions with differential including cirrhotic regenerative nodules, foc al fat, hemangiomas, metastatic disease or some combination thereof. Although g iven the background cirrhosis could not exclude primary hepatocellular carcinom a for any given lesion, this would be unlikely to account for the multiplicity of lesions. Could consider further evaluation with pre and postcontrast MRI as clinically indicated.
[2024-09-29 11:29] LABS: Basophils Absolute Auto 0.1 K/mm3 (0.0-0.1); Basophils Percent Auto 0.9 % (0.2-1.2); Eosinophils Absolute Auto 0.1 K/mm3 (0-0.3); Eosinophils Percent Auto 1.2 % (0-4.4); Hematocrit 34.7 % (42.0-52.0); Hemoglobin 11.7 g/dL (14.0-18.0); Immature Granulocyte Absolute 0.08 K/mm3 (0.00-0.031); Immature Granulocyte Percent A 0.8 % (0-0.5); Lymphocytes Absolute Auto 1.57 K/mm3 (0.9-3.2); Lymphocytes Percent Auto 15.8 % (18.3-44.2); Mean Corpuscular HGB Conc 33.7 g/dl (32-36); Mean Corpuscular Hemoglobin 30.9 pg (26-34); Mean Corpuscular Volume 91.6 fl (80-100); Mean Platelet Volume 9.6 fl (7.4-10.4); Monocytes Absolute Auto 0.8 K/mm3 (0.1-0.6); Monocytes Percent Auto 8.5 % (2.6-8.5); Neutrophils Absolute Auto 7.2 K/mm3 (1.3-6.7); Neutrophils Percent Auto 72.8 % (45.5-73.1); Platelet Count Result 404 k/mm3 (150-375); Red Blood Count 3.79 M/mm3 (4.6-6.20); Red Cell Distribution Width 12.3 % (11.5-14.5); White Blood Count 9.9 K/mm3 (4.5-10.0)
[2024-09-29 11:35] LABS: Add Urine Microscopic? NO; Appearance Urine Clear (Clear); Bilirubin Urine Negative (Negative); Blood Urine Negative (Negative); Color Urine Yellow (Yellow); Glucose Urine UA Negative (Negative); Ketones Urine Negative (Negative); Leukocyte Esterase Ur Negative LEU/UL (Negative); Nitrate Urine Negative (Negative); Protein Urine Negative (Negative); Specific Grav Ur 1.008 (1.001-1.035); Urobilinogen Urine 0.2 mg/dL (<2.0); pH Urine 5.5 (5.0-9.0)
[2024-09-29 11:36] LABS: Lactic Acid Reflex 2.3 mmol/L (0.7-2.0)
[2024-09-29 11:37] LABS: Alanine Aminotransferase 32 U/L (6-50); Albumin Level 4.2 g/dL (3.5-5.1); Alkaline Phosphatase 113 U/L (38-126); Anion Gap 10 mmol/L (4-12); Aspartate Amino Transferase 36 U/L (17-59); Blood Urea Nitrogen 18 mg/dL (9-20); Calcium 9.5 mg/dL (8.4-10.2); Carbon Dioxide 19 mmol/L (22-30); Chloride 103 mmol/L (98-107); Estimated CRCL calculation 47 ml/min; Estimated Glomerular Filt Rate 50; Glucose 195 mg/dL (65-110); Lipase 128 U/L (23-300); Sodium 132 mmol/L (137-145)
[2024-09-29] MEDS: SODIUM CHLORIDE 0.9% IV 1,000 ML 999 ML IV CONT (12:14)
--- NOTE | 2024-09-29 13:03 | ED_ITS ---
HPI - Abdominal Pain General Chief Complaint: Abdominal Pain Stated Complaint: abd pain Time Seen by Provider: 09/29/24 11:12 Source: patient and old records reviewed Mode of arrival: ambulatory Limitations: no limitations History of Present Illness HPI narrative: Patient is a 69-year-old male, with past medical history of liver cirrhosis, who presents the ED with report of lower abdominal pain and dysuria. Patient reports in the past 2 days, he has had discomfort with urination. Reports he is at times dribbling urine. He does have history of BPH and states this is not abnormal for him. Denies hematuria. States he contacted his primary care doctor was referred to the ED for further evaluation and to rule out UTI. Patient denies previous history of UTI. Patient also reports having pain with bowel movements over the last 1 month. Denies rectal bleeding or melena. Is on oxycodone and taking stool softeners to try to avoid constipation. Per records, patient was admitted here 08/07 for ascites and carcinomatosis. Diagnostic paracentesis revealed metastatic carcinoma of GI primary. Dx with Stage IV Colon CA. Transferred to [facility] on 08/20 for further care/possible surgical oncology. Currently seeing Dr. Jacobsen with oncology @ [facility]. Scheduled to begin chemotherapy treatment on 10/02. Related Data Home Medications ?Medication ?Instructions ?Recorded ?Confirmed ?Last Taken ?Type amlodipine 10 mg tablet 10 mg PO DAILY 08/07/24 08/07/24 08/07/24 History diclofenac sodium 75 mg 75 mg PO DAILY 08/07/24 08/07/24 08/07/24 History tablet,delayed release finasteride 5 mg tablet 5 mg PO DAILY 08/07/24 08/07/24 08/07/24 History levothyroxine 25 mcg tablet 25 mcg PO DAILY 08/07/24 08/07/24 Unknown History losartan 100 mg tablet 100 mg PO HS 08/07/24 08/07/24 Unknown History tadalafil 5 mg tablet 5 mg PO DAILY 08/07/24 08/07/24 Unknown History Allergies Allergy/AdvReac Type Severity Reaction Status Date / Time No Known Allergies Allergy Verified 08/07/24 18:39 Review of Systems 2 Review of Systems: All systems reviewed & are unremarkable except as noted in HPI. All systems reviewed & are unremarkable except as noted in HPI and below PMFSH Past Medical History Medical History BPH (benign prostatic hyperplasia) Hypothyroidism Hypertension Surgical History Surgical History History of laparoscopic cholecystectomy Family History Family History Other Diabetes mellitus Social History Social History Smoking packs per day: 1 Smoking cigarettes per day: 20.0 Years smoked: 23 Smoking pack-years: 23.00 Smoking status: Former smoker Tobacco type: cigarettes Alcohol intake: current Drinks per week: 35 Substance use: former Substance use type: amphetamines Do You Feel Safe in your Home?: Yes Lack of Transportation: No Lack of Food: Never True Current Housing: I Have Housing Concerned About Future Housing: No Difficulty Paying Gas/Electric Bills: No Difficulty Paying for Meds: No Currently Unemployed: No Education: Don't Know Difficulty w/ Childcare or Family Care: No Spiritual care concerns: No Exam 2 Narrative: GENERAL: Elderly but well appearing, obese with BMI of 33.4, non-toxic, in no acute distress. HEAD: Normocephalic, atraumatic. RESPIRATORY: Airway patent, respirations nonlabored. Clear to auscultation bilaterally, no rales, rhonchi, wheezing. CARDIOVASCULAR: Regular rate and rhythm without murmurs, rubs, or gallops. ABDOMINAL: Abdomen is slightly distended but is still soft, diffusely mildly tender in lower abdomen. Normoactive BS. MUSCULOSKELETAL: Moves all extremities. No gross deformities. SKIN: Warm, dry, normal color. NEURO: A&O X3. Speech clear. Cranial nerves II-XII grossly intact. Steady gait. No ataxic movements. PSYCHIATRIC: Appropriate mood and affect. Normal interaction. Course Vital Signs Vital signs: Vital Signs Temperature 98 F 09/29/24 11:10 Temperature 98.0 F 09/29/24 11:16 Pulse Rate 62 09/29/24 14:45 Respiratory Rate 13 09/29/24 14:45 Blood Pressure 121/65 09/29/24 14:45 Pulse Oximetry 96 09/29/24 14:45 MDM - Abdominal Pain MDM Narrative Medical decision making narrative: Patient presented to ED with 2 day history of dysuria, lower abdominal pain, recently found to have stage IV colon cancer, scheduled to began chemotherapy with [facility]ology [facility] on Wednesday. Vital signs are stable upon arrival. Patient is in no acute distress. Laboratory studies are fairly unremarkable. White blood cell count of 9.9. Hemoglobin is stable, consistent with previous records. CMP with sodium 132, bicarb slightly low at 19. Creatinine 1.4. Per records, appears as though baseline is more around 0.9-1. Fluids initiated. Initial lactic acid 2.3. Normal LFTs and lipase. Urinalysis is completely clear. No signs of infection. CT scan of abdomen/ pelvis was obtained and showing resolution of ascites that were found on recent admission, cirrhotic changes with known metastatic disease. No significant acute process. Patient was updated on lab and imaging results, overall reassuring workup. He feels very reassured by this. Feeling better after fluids. Repeat BMP shows down trending creatinine and lactic acid did normalize after fluids. Feel patient is safe for discharge home with close outpatient follow-up. He has several doctors appointments next week with his specialists at [facility]. Recommended that patient stay very well hydrated, given strict return precautions. He is in agreement with plan and feels comfortable with discharge home, would prefer to go home. Discharged in stable condition. Vital signs stable at time of D/C. Medical Records Attestation: I reviewed the patient's medical records. Lab Data Attestation: I reviewed the patient's lab results. 09/29/24 11:21 09/29/24 13:49 Labs: Lab Results 09/29/24 09/29/24 09/29/24 Range/Units 11:21 11:27 13:49 WBC 9.9 (4.5-10.0) K/mm3 RBC 3.79 L (4.6-6.20) M/mm3 Hgb 11.7 L (14.0-18.0) g/dL Hct 34.7 L (42.0-52.0) % MCV 91.6 (80-100) fl MCH 30.9 (26-34) pg MCHC 33.7 (32-36) g/dl RDW 12.3 (11.5-14.5) % Plt Count 404 H (150-375) k/mm3 MPV 9.6 (7.4-10.4) fl Immature Gran % (Auto) 0.8 H (0-0.5) % Neut % (Auto) 72.8 (45.5-73.1) % Lymph % (Auto) 15.8 L (18.3-44.2) % [place] % (Auto) 8.5 (2.6-8.5) % Eos % (Auto) 1.2 (0-4.4) % Baso % (Auto) 0.9 (0.2-1.2) % Lymph # (Auto) 1.57 (0.9-3.2) K/mm3 [place] # (Auto) 0.8 H (0.1-0.6) K/mm3 Eos # (Auto) 0.1 (0-0.3) K/mm3 Baso # (Auto) 0.1 (0.0-0.1) K/mm3 Abs Immat Gran (auto) 0.08 H (0.00-0.031) K/mm3 Absolute Neuts (auto) 7.2 H (1.3-6.7) K/mm3 Absolute Nucleated RBC 0.000 (0.0-0.012) K/mm3 Nucleated RBC % 0.0 (0.0-0.2) % Sodium 132 L 132 L (137-145) mmol/L Potassium 5.0 5.3 H (3.4-5.0) mmol/L Chloride 103 104 (98-107) mmol/L Carbon Dioxide 19 L 20 L (22-30) mmol/L Anion Gap 10 8 (4-12) mmol/L BUN 18 18 (9-20) mg/dL Creatinine 1.40 H 1.30 (0.7-1.3) mg/dL Estim Creat Clear Calc 47 51 ml/min Estimated GFR 50 L 55 L (59 - ) Glucose 195 H 125 H (65-110) mg/dL Lactic Acid 2.3 H 1.6 (0.7-2.0) mmol/L Calcium 9.5 8.9 (8.4-10.2) mg/dL Total Bilirubin 1.0 (0.2-1.3) mg/dL AST 36 (17-59) U/L ALT 32 (6-50) U/L Alkaline Phosphatase 113 (38-126) U/L Total Protein 8.0 (6.3-8.2) g/dL Albumin 4.2 (3.5-5.1) g/dL Lipase 128 (23-300) U/L Urine Color Yellow (Yellow) Urine Appearance Clear (Clear) Urine pH 5.5 (5.0-9.0) Ur Specific [place] 1.008 (1.001-1.035) Urine Protein Negative (Negative) mg/dL Urine Glucose (UA) Negative (Negative) mg/dL Urine Ketones Negative (Negative) mg/dL Ur Blood (Man) Negative (Negative) Urine Nitrate Negative (Negative) Urine Bilirubin Negative (Negative) Urine Urobilinogen 0.2 (<2.0) mg/dL Leukocyte Esterase Rfl Negative (Negative) SHANELL/UL Imaging Data Attestation: I personally reviewed and interpreted this imaging study as follows: Radiologist's impression: ITS Impressions Abdomen/Pelvis CT 09/29/24 12:03 IMPRESSION: 1. Resolution of prior ascites and decrease in the amount of nodular omental stranding and haziness in the small bowel mesenteric fat in the pelvis consistent with likely response to treatment of peritoneal carcinomatosis. 2. Cirrhotic liver and diffuse hepatic steatosis with multiple small hypodense hepatic lesions with differential including cirrhotic regenerative nodules, focal fat, hemangiomas, metastatic disease or some combination thereof. Although given the background cirrhosis could not exclude primary hepatocellular carcinoma for any given lesion, this would be unlikely to account for the multiplicity of lesions. Could consider further evaluation with pre and postcontrast MRI as clinically indicated. Discharge Plan Discharge Clinical Impression: Pain with urination, Lower abdominal pain, Colon cancer metastasized to multiple sites Cirrhosis Qualifiers: Hepatic cirrhosis type: unspecified hepatic cirrhosis Ascites presence: without ascites Qualified Code(s): K74.60 - Unspecified cirrhosis of liver Patient Disposition: Home, Self-Care Condition: Stable Instructions: Antibiotic Form, Dysuria (ED), Abdominal Pain (ED) Additional Instructions: Your workup here was reassuring. Your urine did not show any signs of infection. Stay well hydrated. Continue home medications. Follow-up closely with your primary care doctor and oncologist for further evaluation management. Return to the ED if you experience worsening or severe pain, unable to keep down food or drink, persistent fevers, blood in urine, blood in stool, passing out, or any other symptoms of concern. Patient Language: Tamazight Prescriptions: No Action levothyroxine 25 mcg tablet 25 mcg PO DAILY amlodipine 10 mg tablet 10 mg PO DAILY diclofenac sodium 75 mg tablet,delayed release (DR/EC) 75 mg PO DAILY losartan 100 mg tablet 100 mg PO HS finasteride 5 mg tablet 5 mg PO DAILY tadalafil 5 mg tablet 5 mg PO DAILY Follow-up/Referrals: Kathy,Ruth Amato APRN [Primary Care Provider] - Time of Disposition: 14:43
[2024-09-29 14:06] LABS: Lactic Acid Reflex 1.6 mmol/L (0.7-2.0)
[2024-09-29 14:15] LABS: Anion Gap 8 mmol/L (4-12); Blood Urea Nitrogen 18 mg/dL (9-20); Calcium 8.9 mg/dL (8.4-10.2); Carbon Dioxide 20 mmol/L (22-30); Chloride 104 mmol/L (98-107); Estimated CRCL calculation 51 ml/min; Estimated Glomerular Filt Rate 55; Glucose 125 mg/dL (65-110); Potassium 5.3 mmol/L (3.4-5.0); Sodium 132 mmol/L (137-145)
[2024-09-29 14:23] LABS: Reflex Lactic Acid Yes or No Add Lactic
== END 2024-09-29 14:51 | disposition home or self-care (01) ==
PROVIDERS: Emergency Provider Physician Assistant; PCP Nurse Practitioner
DX: K74.60 Unspecified cirrhosis of liver (principal); C18.9 Malignant neoplasm of colon, unspecified; C79.9 Secondary malignant neoplasm of unspecified site; R10.30 Lower abdominal pain, unspecified; R30.0 Dysuria; N40.0 Benign prostatic hyperplasia without lower urinary tract symptoms; I10 Essential (primary) hypertension; E03.9 Hypothyroidism, unspecified; Z87.891 Personal history of nicotine dependence; Z90.49 Acquired absence of other specified parts of digestive tract; Z79.60 Long term (current) use of unspecified immunomodulators and immunosuppressants; K76.0 Fatty (change of) liver, not elsewhere classified
CPT/HCPCS: 36415; 74177; 80048; 80053; 81003; 83605; 83690; 85025; 96360; 99284; J7030; Q9967

== ENCOUNTER 2024-11-27 16:40 | Emergency (ER) | payer MEDICARE, SELFPAY ==
--- NOTE | 2024-11-27 17:15 | ED_ITS ---
HPI - General Adult General Chief complaint: Unspecified Stated complaint: abd swelling, throat burning Time Seen by Provider: 11/27/24 17:15 Focused HPI: Patient is a 69 y/o male, with PMH of Stage IV colon CA, cirrhosis, who presents to the ED via EMS with multiple complaints. patient reports having shortness breath, abdominal pain and wanting fluid drained off his abdomen, burning in his throat. Patient states he went to [place] last week to have a paracentesis, was admitted at that time, but signed out AMA last night because he states they took all his medications away and wanted to transfer him to [facility], but was waiting for a bed. States he comes here today to get the fluid drained off. Reports some pain in his abdomen, particularly on the R upper abdomen. Also reports burning in his throat today, described as though there is hot air in his throat. Reports having increased SOB over the past 2-3 weeks. States he is on warfarin, but has not taken any of his home medications since Wednesday. Denies CP. Denies diarrhea, constipation, N/V, fever. GENERAL: Elderly, ill appearing, well-nourished, and in no acute distress. HEAD: Normocephalic, atraumatic. CHEST: Clear to auscultation. ?No respiratory distress. Frequent belching HEART: Regular rate and rhythm.? ABD: Abdomen is somewhat distended and firm, fullness in RUQ, diffuse tenderness. Normoactive BS NEURO: ?Alert and oriented x3. Patient screened in triage and initial orders placed.? ?Additional care and disposition to be based upon?diagnostic testing and treatment. Source: patient and old records reviewed Mode of arrival: EMS Limitations: no limitations Related Data Home Medications ?Medication ?Instructions ?Recorded ?Confirmed ?Last Taken ?Type amlodipine 10 mg tablet 10 mg PO DAILY 08/07/24 08/07/24 08/07/24 History diclofenac sodium 75 mg 75 mg PO DAILY 08/07/24 08/07/24 08/07/24 History tablet,delayed release finasteride 5 mg tablet 5 mg PO DAILY 08/07/24 08/07/24 08/07/24 History levothyroxine 25 mcg tablet 25 mcg PO DAILY 08/07/24 08/07/24 Unknown History losartan 100 mg tablet 100 mg PO HS 08/07/24 08/07/24 Unknown History tadalafil 5 mg tablet 5 mg PO DAILY 08/07/24 08/07/24 Unknown History Allergies Allergy/AdvReac Type Severity Reaction Status Date / Time No Known Allergies Allergy Verified 08/07/24 18:39 [facility] Past Medical History Medical History BPH (benign prostatic hyperplasia) Hypothyroidism Hypertension Surgical History Surgical History History of laparoscopic cholecystectomy Family History Family History Other Diabetes mellitus Social History Social History Smoking packs per day: 1 Smoking cigarettes per day: 20.0 Years smoked: 23 Smoking pack-years: 23.00 Smoking status: Former smoker Tobacco type: cigarettes Alcohol intake: current Drinks per week: 35 Substance use: former Substance use type: amphetamines Do You Feel Safe in your Home?: Yes Lack of Transportation: No Lack of Food: Never True Current Housing: I Have Housing Concerned About Future Housing: No Difficulty Paying Gas/Electric Bills: No Difficulty Paying for Meds: No Currently Unemployed: No Education: Don't Know Difficulty w/ Childcare or Family Care: No Spiritual care concerns: No Course Vital Signs Vital signs: Vital Signs Temperature 97.9 F 11/27/24 17:16 Pulse Rate 90 11/27/24 17:16 Respiratory Rate 15 11/27/24 17:16 Blood Pressure 117/67 11/27/24 17:16 Pulse Oximetry 99 11/27/24 17:16 Temperature 97.9 F 11/27/24 17:16 Pulse Rate 90 11/27/24 17:16 Respiratory Rate 15 11/27/24 17:16 Blood Pressure 117/67 11/27/24 17:16 Pulse Oximetry 99 11/27/24 17:16 Medical Decision Making MDM Narrative Medical decision making narrative: MSE by LESIA in triage. Vital Signs Vital Signs: Vital Signs Temperature 97.9 F 11/27/24 17:16 Pulse Rate 90 11/27/24 17:16 Respiratory Rate 15 11/27/24 17:16 Blood Pressure 117/67 11/27/24 17:16 Pulse Oximetry 99 11/27/24 17:16 Temperature 97.9 F 11/27/24 17:16 Pulse Rate 90 11/27/24 17:16 Respiratory Rate 15 11/27/24 17:16 Blood Pressure 117/67 11/27/24 17:16 Pulse Oximetry 99 11/27/24 17:16 Discharge Plan Discharge Clinical Impression: Abdominal pain, Colon cancer Cirrhosis Qualifiers: Hepatic cirrhosis type: unspecified hepatic cirrhosis Ascites presence: without ascites Qualified Code(s): K74.60 - Unspecified cirrhosis of liver Patient Disposition: Elopement After Seen by Prov Condition: Guarded Prognosis Patient Language: Georgian Prescriptions: No Action levothyroxine 25 mcg tablet 25 mcg PO DAILY amlodipine 10 mg tablet 10 mg PO DAILY diclofenac sodium 75 mg tablet,delayed release (DR/EC) 75 mg PO DAILY losartan 100 mg tablet 100 mg PO HS finasteride 5 mg tablet 5 mg PO DAILY tadalafil 5 mg tablet 5 mg PO DAILY Follow-up/Referrals: Swati,Ruth Amato, [employer] SERVICE TECHNICIAN [Primary Care Provider] -
[2024-11-27 17:16] VITALS: BP 117/67; PULSE 90; RESP 15; TEMP 36.6; O2SAT 99
--- OUTSIDE RECORDS SUMMARY | 2024-11-27 18:32 | XMS_ITS | Data Portability ---
Author Organization [facility] [employer] [facility], Main Office Address [address] [place] [address] Care Team Providers Care Wood Form Builder Name Role Phone NIKI RICHARDSON Primary Care Provider [phone] NIKI RICHARDSON Referring Provider Assessment No assessment recorded. Plan of Treatment Reminders Order Date Submit Date Provider Last Modified By Organization Details Last Modified Time Details Appointments None recorded. Lab None recorded. Referral None recorded. Procedures None recorded. Surgeries None recorded. Imaging US, bladder [address] [address], [address], [place], [address], 4 12:22:23 Medication Orders finasteride 5 mg tablet 2023 024 [facility] 176, [address] [place] [address], [id number], 4 16:14:12 tadalafil 5 mg tablet 2023 024 [facility] 1761, [address] [place] [address], [id number], 4 16:14:12 Cialis 5 mg tablet 2022 023 [facility] [address], [address] [place] [address], [id number], 3 16:13:51 Patient TargetsNo targets recorded. Patient Instructions Encounter Date Encounter Id Patient Instructions Last Modified By Organization Details Last Modified Time 06/20/2024 [id number] 1. This patient has significant BPH symptoms but it also could be due to his diabetes but complaining of a slow stream with nocturia x3. He has dribbling of his urine 2. He has been on the daily Cialis 3. I will refill the daily Cialis but I will add finasteride 4. He needs to come back in 3 months for a urinalysis with a PVR and if he still has significant BPH I will need to do a prostate exam and schedule him for possible resection of the prostate Not available 06/20/2024 16:13:51 09/20/2024 [id number] 1. I think at this point he should just remain on the finasteride and it can be refilled by his primary care doctor as needed 2. No further follow up as needed with Urology I think he should do well from the finasteride Not available 09/20/2024 12:27:24 Reason for Referral None Reported. Results Created Date Observation Date Name Description Value Unit Range Abnormal Flag Note LastModifiedBy Organization Detail LastModifiedTime 09/20/20 24 09/20/2024 US, bladd er No observ ation record ed. [email or web address] [facility] [address], [address], [place], [address], 09/20/2024 12:22:44 Result Notes None recorded. Problems Name Problem SNOMED Code Status Onset Date Resolution Date Notes Provider Name and Address Organization Details Recorded Time Pain in left sacroilia c joint 14070264900 796978 Active 2020 Not Available [facility] 3 02:46:05 Chronic back pain 173370750 Active Not Available [facility] 3 02:46:05 Cirrhosis of liver 47533444 Active Not Available [facility] 3 02:46:05 Hypertens ap disorder 80526683 Active Not Available [facility] 3 02:46:06 Neuropath y 550018067 Active Not Available [facility] 3 02:46:06 Blood pressure finding 953178983 Active 2020 Not Available [facility] 3 02:46:06 Obese 211941589 Completed Not Available [facility] 3 02:46:06 History of polyp of colon 549406536 Active Not Available [facility] 3 02:46:06 Primary erectile dysfuncti on 697816002 Active 2021 Not Available [facility] 3 02:46:06 Anxiety 92347437 Completed Not Available [facility] 3 02:46:06 Alcoholic fatty liver 15279391 Active Not Available [facility] 3 02:46:06 Liver enzymes level above reference range 057275373 Active Not Available [facility] 3 02:46:06 Spinal stenosis 27396183 Active 2020 Not Available [facility] 3 02:46:06 Benign prostatic hyperplas ia with outflow obstructi on 603077552 Active 2023 Antonio Salgado MD [address] [place] [address], [place] [address], [place], [address] , [place] [employer] 4 16:10:23 Benign prostatic hyperplas ia 037262001 Active 2023 Gabriella Knight null, [employer] 4 11:10:06 Prostate specific antigen above reference range 729498956 Active 2023 Carmen Mccullough CMA null, [employer] 4 12:07:42 Problem Notes None recorded. Procedures Surgical History Date Name Laterality Status Provider Name and Address Organization Details Recorded Time Cholecystectomy completed Not Available [facility] 12/09/2022 02:41:29 colonoscopy completed Not Available [facility] 12/09/2022 02:41:29 Hand completed Not Available [facility] 10/2022 02:41:29 Imaging Results Imaging Date Name Status LastModified by Organiz ation Details LastModified Time 09/20/2024 US, bladder completed [email or web address] [facility] [place] [address] [facility], [address], [place], [address], 09/20/2024 12:22:44 Procedure Notes None recorded. Medical Equipment None Reported. Allergies No known drug allergies Medications Name Sig Start Date Stop Date Status Note LastModified by Organization Details LastModified Time losartan 50 mg tablet TAKE 1 TABLET BY MOUTH EVERY DAY active Not Available Not Available No t Available amoxicillin 500 mg capsule TAKE 1 CAPSULE BY MOUTH THREE TIMES DAILY UNTIL ALL TAKEN 03/19 completed Not Available Not Available Not Available furosemide 40 mg tablet active Not Available Not Available Not Available metformin 500 mg tablet TAKE 1 TABLET BY MOUTH TWICE DAILY active Not Available Not Available No t Available prednisone 10 mg tablet 02/13 completed Not Available Not Available Not Available atorvastati n 20 mg tablet active Not Available Not Available Not Available cyanocobala min (vit B-12) 100 mcg tablet active Not Available Not Available N ot Available trazodone 50 mg tablet TAKE 1 TABLET BY MOUTH ONCE DAILY AT NIGHT NEEDED active Not Available Not Available No t Available sildenafil 50 mg tablet Take 1 tablet every day by oral route as needed for 30 days. active Not Available Not Available No t Available ondansetron HCl 4 mg tablet 06/12 completed Not Available Not Available Not Available glipizide 10 mg tablet 09/20 completed Not Available Not Available Not Available spironolact one 100 mg tablet active Not Available Not Available Not Available gabapentin 400 mg capsule TAKE 2 CAPSULES BY MOUTH THREE TIMES DAILY 06/12 completed Not Available Not Available Not Available acetaminoph en 300 mg-codeine 30 mg tablet TAKE 1 TO 2 TABLETS BY MOUTH EVERY 4 TO 6 HOURS NEEDED FOR PAIN 06/12 completed Not Available Not Available Not Available levothyroxi ne 25 mcg tablet TAKE 1 TABLET BY MOUTH ONCE DAILY FOR 90 DAYS active Not Available Not Available No t Available prednisone 10 mg tablets in a dose pack Take 1 tab by mouth, 3 times a day for 3 daysTake 1 tab by mouth 2 times a day for 2 daysTake 1 tab by mouth once a day for 1 day 02/13 completed Not Available Not Available Not Available oxycodone-a cetaminophe n 5 mg-325 mg tablet TAKE 1 TABLET BY MOUTH EVERY 6 HOURS NEEDED active Not Available Not Available No t Available tamsulosin 0.4 mg capsule active Not Available Not Available Not Available Kenalog 10 mg/mL suspension for injection In office injection administe red by the provider 02/13 completed NDC: 0003- 0494- 20 Not Available Not Available Not Available amlodipine 10 mg tablet TAKE 1 TABLET BY MOUTH EVERY DAY active Not Available Not Available No t Available cephalexin 500 mg capsule TAKE 1 CAPSULE BY MOUTH THREE TIMES DAILY . TAKE THE DAY AFTER YOUR SURGICAL PROCEDURE . ONE DAY DOSE ONLY 06/12 completed Not Available Not Available Not Available pantoprazol e 40 mg tablet,katharina yed release active Not Available Not Available Not Available gabapentin 300 mg capsule Take 1 capsule 3 times a day by oral route as needed. 06/12 completed Not Available Not Available Not Available omeprazole 20 mg capsule,del ayed release active Not Available Not Available Not Available diclofenac sodium 75 mg tablet,katharina yed release TAKE 1 TABLET BY MOUTH TWICE DAILY active Not Available Not Available No t Available folic acid 1 mg tablet active Not Available Not Available Not Available zolpidem 5 mg tablet Take 1 tablet as needed by oral route at bedtime for 30 days. active Not Available Not Available No t Available ondansetron 4 mg disintegrat ing tablet active Not Available Not Available N ot Available losartan 100 mg tablet TAKE 1 TABLET BY MOUTH ONCE DAILY active Not Available Not Available No t Available finasteride 5 mg tablet TAKE 1 TABLET BY MOUTH ONCE DAILY active Not Available Not Available No t Available oxycodone 5 mg tablet TAKE 1 TABLET EVERY 8 HOURS NEEDED FOR SEVERE PAIN 30 DAY(S) active Not Available Not Available No t Available enoxaparin 120 mg/0.8 mL subcutaneou s syringe active Not Available Not Available No t Available dutasteride 0.5 mg capsule TAKE 1 CAPSULE BY MOUTH ONCE DAILY active Not Available Not Available No t Available tadalafil 5 mg tablet TAKE 1 TABLET BY MOUTH ONCE DAILY DIRECTED active Not Available Not Available No t Available vitamin E 2021 active Not Available Not Available Not Avai lable folic acid active Not Available Not Av ailable Not Available Vitamin D3 2021 active Not Available Not Available Not Avai lable Vitamin B12 2021 active Not Available Not Available Not Avai lable lidocaine (PF) 10 mg/mL (1 %) injection solution In office injection administe red by the provider 02/13 completed NDC: 0409- 4276- 17 Not Available Not Available Not Available oxycodone 10 mg tablet Take 1 tablet every 4 hours by oral route. active Not Available Not Available No t Available Vitals Date Recorded Body height Provider Name an d Address Organization Details Last Updated DateTime 12/11/2022 167.64 cm Melba Atwood MA [facility] [employer] 12/11/2022 15:57:08 Date Recorded Oxygen saturation Oxygen saturation in Arterial blood by Pulse oximetry Heart rate Body mass index (BMI) Body weight Provider Name and Address Organization Details Last Updated DateTime 12/11/2022 95 % 95 % 71 /min 37.9 kg/m2 763994. 21 g EdwinAIDA Dior [place] [employer] [facility] [employer] 3 16:00:13 Date Recorded Body mass index (BMI) Body mass index (BMI) Body height Body height Oxygen saturation Oxygen saturation in Arterial blood by Pulse oximetry Oxygen saturation Oxygen saturation in Arterial blood by Pulse oximetry Heart rate Heart rate Body temperature Body temperature Body weight Body weight Systolic blood pressure Diastolic blood pressure Systolic blood pressure Diastolic blood pressure Provider Name and Address Organization Details Last Updated DateTime 3 35.3 kg/m2 36.2 kg/m2 167.64 cm 167.64 cm 97 % 97 % 97 % 97 % 71 /min 66 /min 98.1 [degF] 98.1 [degF] 96224.7 3 g 912393. 69 g 134 mm[Hg] 78 mm[Hg] 131 mm[Hg] 83 mm[Hg] Not Available [facility] 3 02:44:31 Date Recorded Heart rate Body temperature Oxygen saturation Oxygen saturation in Arterial blood by Pulse oximetry Body weight Systolic blood pressure Diastolic blood pressure Provider Name and Address Organization Details Last Updated DateTime 4 113 /min 96.8 [degF] 98 % 98 % 250865. 72 g 128 mm[Hg] 78 mm[Hg] Carmen Mccullough CMA [place] [employer] [facility] [employer] 4 15:58:47 Date Recorded Body height Heart rate Body temperature Body mass index (BMI) Body weight Oxygen saturation Oxygen saturation in Arterial blood by Pulse oximetry Systolic blood pressure Diastolic blood pressure Provider Name and Address Organization Details Last Updated DateTime 4 167.64 cm 75 /min 97 [degF] 34.5 kg/m2 07386.7 7 g 96 % 96 % 109 mm[Hg] 64 mm[Hg] Carmen Mccullough CMA [place] [facility] 4 12:06:10 Social History Question Answer Notes LastModified by Organizat ion Details LastModified Time Tobacco Smoking Status Never Smoker Not Available [facility] 12/09/2022 02:36:24 Do You Have An Advance Directive? Yes [id number] Information not available 12/09/2022 What Is Your Level Of Alcohol Consumption? None [id number] Information not available 12/09/2022 What Is Your Level Of Caffeine Consumption? Heavy [id number] Information not available 12/09/2022 How Much Tobacco Do You Chew? None MIGRATION.[id number] Information not available 12/09/2022 In The 14 Days Before Symptom Onset, Have You Had Close Contact With A Laboratory-confir med COVID-19 While That Case Was Ill? No [id number].[id number] Information not available 12/09/2022 In The 14 Days Before Symptom Onset, Have You Had Close Contact With A Person Who Is Under Investigation For COVID-19 While That Person Was Ill? No [id number] Information not available 12/09/2022 What Type Of Diet Are You Following? REGULAR [id number].[id number] 0939 Information not available 12/09/2022 Which Illicit Or Recreational Drugs Have You Used? None MIGRATION.[id number] Information not available 12/09/2022 Do You Or Have You Ever Used E-cigarettes Or Vape? Never Used Electronic Cigarettes MIGRATION.[id number] Information not available 12/09/2022 What Is Your Occupation? Disabled MIGRATION.[id number] 5792 Information not available 12/09/2022 What Was The Date Of Your Most Recent Tobacco Screening? 01/28/2021 [id number].[id number] Information not available 12/09/2022 Do You Or Have You Ever Used Smokeless Tobacco? Never Used Smokeless Tobacco MIGRATION.[id number] Information not available 12/09/2022 How Much Tobacco Do You Smoke? No MIGRATION.[id number] 3521 Information not available 12/09/2022 Do You Use Any Illicit Or Recreational Drugs? No MIGRATION.933270 3323 Information not available 12/09/2022 Do You Use Sunscreen Routinely? No MIGRATION.649847 1968 Information not available 12/09/2022 Has Tobacco Cessation Counseling Been Provided? No MIGRATION.280576 9071 Information not available 12/09/2022 Do You Or Have You Ever Used Any Other Forms Of Tobacco Or Nicotine? No MIGRATION.454111 0499 Information not available 12/09/2022 Sex: Unknown Functional Status Question Answer Note LastModified by Organizat ion Details LastModified Time What is your exercise level? Occasional [id number] Information not available 12/09/2022 Mental Status None recorded. Family History Relationship Description Onset Age of this Age Resolved Age Notes LastModified by Organization Details LastModified Time Daughter Diabetes mellitus [id number] Not available 12/09/2022 02:41:32 Daughter Hypertensive disorder [id number] Not available 12/09/2022 02:41:32 Medical History Condition Response BLINDNESS N RHEUMATIC FEVER N BLADDER PROBLEMS N KIDNEY STONES N MRSA N OTHER # 1 N POLIO N LUNG DISEASE/DISORDER N RADIATION / CHEMOTHERAPY N COPD N Other # 2 N BLOOD DISEASES N SURGERY N EAR OR HEARING PROBLEMS N MUMPS N BOWEL PROBLEMS N DEPRESSION (INCLUDING POST ) N FEMALE PROBLEMS / INFECTIONS N STROKE/TIA N THYROID DISEASE N ULCERS N BENIGN PROSTATIC HYPERPLASIA N MEASLES N CERVICALGIA N TB SKIN TEST N MYOCARDIAL INFARCTION N PARAPELGIA N OBESITY Y GERD/NAUSEA N ANEURYSM N URINARY/BLADDER/KIDNEY PROBLEMS N CORONARY ARTERY DISEASE (CAD) N MENIERE'S DISEASE N ADDICTION CONCERNS N ENDOMETRIOSIS N USE OF BLOOD THINNERS N SKIN PROBLEMS N EMPHYSEMA N GASTROINTESTINAL DISORDER N MUSCLE,JOINT OR BONE PROBLEMS N GASTROINTESTINAL BLEEDING N BLOOD CLOTS N ASTHMA N CATARACTS N ERECTILE DYSFUNCTION N GI PROBLEMS N CHF N Low Testosterone N NEUROPATHY N INFERTILITY N AIDS/HIV N FRACTURES N CHEMOTHERAPY / RADIATION N VISION/EYE PROBLEMS N LIVER DISEASE Y MALE HYPOGONADISM N HYPERTENSION N ANXIETY DISORDER Y BLOOD TRANSFUSION N ANEMIA/BLOOD DISORDER N CHRONIC EAR INFECTIONS N BRONCHITIS N TUBERCULOSIS N GLAUCOMA N FOOT PROBLEM N DIVERTICULITIS N SLEEP APNEA N CHICKENPOX N ALLERGIES/HAYFEVER N INFECTIOUS DISEASE N PROSTATE N HEART ARRHYTHMIA N INSOMNIA N HIGH CHOLESTEROL / HYPERLIPIDEMIA N EYE PROBLEMS N HYPERTHYROIDISM N EATING DISORDER N NEUROLOGICAL PROBLEMS N EDEMA N CHRONIC PAIN SYNDROME N HYPOTHYROIDISM N CAROTID BLOCKAGE N CONSTIPATION N BACK / NECK PROBLEMS Y HAVE YOU BEEN HOSPITALIZED OR SEEN IN [facility] IN THE PAST YEAR ? N ATHEROSCLEROSIS N BREAST PROBLEMS N DIALYSIS N ECZEMA N FIBROMYALGIA N OSTEOPOROSIS N ARTHRITIS Y NO SIGNIFICANT PAST MEDICAL HISTORY N APPENDICITIS N DIABETES, TYPE N BAD TEETH N HEARTBURN / REFLUX N ADD/ADHD N AUTISM SPECTRUM DISORDER (ASD) N HEPATITIS / LIVER DISEASE Y PULMONARY DISEASE N GOUT N SLEEP DISORDER N ALZHEIMER'S DISEASE N PAIN N DEMENTIA N HERPES N SEIZURES/EPILEPSY N HEADACHES/MIGRAINES N VASCULAR DISEASE N PACEMAKER N DIZZINESS N HEART DISEASE/HEART PROBLEMS N KIDNEY DISEASE N SCARLET FEVER N MULTIPLE SCLEROSIS N DEVELOPMENTAL OR BEHAVIORAL DISORDERS N MENTAL DISORDER/ILLNESS N CANCER: SPECIFY N CARDIAC ARRHYTHMIA N PNEUMONIA N ATRIAL FIBRILLATION N Gall Stones N PULMONARY EMBOLISM N AUTOIMMUNE DISEASE N Past Encounters Encounter ID Performer Location Encounter Start Date Encounter Closed Date Diagnosis/Indication Diagnosis SNOMED-CT Code Diagnosis ICD10 Code Diagnosis Note [id number] [facility] [address] [address] 01/02/2021 00:00:00 01/02/2021 16:38:45 [id number] [facility] [address] [address] 01/28/2021 00:00:00 01/28/2021 11:16:02 [id number] _[facility]HE[facility]_M IGRATION_ DEFAULT_1 _1 , 02/19/2021 00:00:00 02/19/2021 15:02:06 [id number] [facility] [address] [address] 02/25/2021 00:00:00 02/25/2021 10:28:23 [id number] _ATHENA_M IGRATION_ DEFAULT_1 _1 , 03/19/2021 00:00:00 03/19/2021 14:34:40 [id number] [facility] [address] [place] [address] 03/27/2021 00:00:00 03/27/2021 13:20:04 [id number] [facility] [address] [address] 06/12/2022 00:00:00 06/12/2022 17:05:51 [id number] Kris Verdin MD [facility] [place] [address] 12/11/2022 15:43:10 12/11/2022 16:15:50 Primary erectile dysfunction 858025782 N52.9 - Discussion as noted below. Patient endorses understand ing. We will plan for continuing cialis 5mg daily, and then adding a PRN dose for 10mg 1 hour prior to intercours e. Follow up 6 months with one of my partners (as I will not be at [facility] at that time). Impotence: I discussed with patient my approach to impotence. I discussed the ladder approach of starting at the bottom rungs with oral medication and vacuum erection devices. Oral medication s have side effects including sinus congestion , headache, stomach upset, low back pain. I discussed these are very effective medication s but also very expensive. Vacuum devices draw blood into the penis using negative pressure and are safe, however, patient satisfacti on is not very high. They are a very effective component of restoring blood flow to the penis after pelvic surgery. The next rung of the ladder includes injection therapy into the penis and suppositor y placement in the urethra. Urethral suppositor ies are effective, have side effects of burning, and are expensive. Injections are very effective, inexpensiv e and can provide long a term therapy solution. There is a risk of priapism, however, that we also discussed. On the top rung of the ladder is the penile implant. The risks of the surgery are greater than the lower rung therapies, however patient satisfacti on and success rates are the highest with implant surgery. We also discussed LISWT therapy. Discussed that this is a newer treatment that has some promising data, but still in the early stages and considered not yet a standard of care yet. Discussed that we do offer this therapy for patients who are candidates , but it is not covered by insurance and the results can vary, though side effects are minimal. At least 20 minutes of coordinate d time was spent with the patient as well as reviewing the patient's history and chart, of which greater than 80% was spent in counseling , coordinati on of care and a detailed question and answer session. [id number] Antonio Salgado MD [facility] [place] [id number] [facility], [address] [address] 06/20/2024 15:49:48 06/20/2024 16:05:45 Benign prostatic hyperplasia with outflow obstruction 944370824 N40.1 [id number] Antonio Salgado MD [facility] [address], [address] [place] [address] 09/20/2024 11:48:18 09/20/2024 12:17:53 Prostate specific antigen above reference range 049022508 R97.20 Benign pro static hyperplasia with outflow obstruction 476295469 N40.1 Health Concerns Section Related Observation LastModified by Organization Detai ls LastModified Time None Recorded Concern Status LastModified by Organization Details LastModified Time None Recorded Advance Directives Directive Y: Payers Encounter Date Sequence Insurance Name Policy Number Policy Finley Covered Member ID Finley Member ID Guarantor Name 12/11/2022 1 [employer] (MEDICARE REPLACEMENT/A DVANTAGE - PPO) Edwin Rhoades [id number] Edwin Donaldaimee 06/20/2024 1 [employer] (MEDICARE REPLACEMENT/A DVANTAGE - PPO) Edwin Rhoades [id number] Edwin Donaldaimee 09/20/2024 1 [employer] (MEDICARE REPLACEMENT/A DVANTAGE - PPO) Edwin Rhoades [id number] Edwin Rhodaes Notes Date Note Type Note Provider Name and Address Organization Details Recorded Time 2 text/html Erectile DysfunctionReported bypatient.Quality:loss of function Severity:moderate Context:never able to maintain a hard erectionNotes:Patient has tried viagra and cialis, but this has not helped. He is not on any medication for his diabetes. No heart issues, not on nitrates. Rare morning erections. Rates erections at 4 out of 10. Cannot achieve penetrative. No issues with orgasm. PMH: HTN, diabetes, baby aspirin, synthroid. Not Available [place] [facility] [employer] 06/12/2022 17:05:51 3 text/html Previous visit:Patient here for ED. Patient reports never able to maintain a hard erection. For quality, patient reports loss of function. For severity, patient reports moderate.Patient has tried viagra and cialis, but this has not helped. He is not on any medication for his diabetes. No heart issues, not on nitrates.Rare morning erections. Rates erections at 4 out of 10. Cannot achieve penetrative. No issues with orgasm.PMH: HTN, diabetes, baby aspirin, synthroid. 12/11/2022: Patient here for follow up ED. On cialis 5mg daily only. Paitent states he's had some goodimprovement, and has a semirigid erection now. He did break up with his girlfriend recently. He does state it would likely be hard enough now for penetration. Kris Verdin MD [address], [address], [place], [address], [employer] 12/11/2022 16:15:56 4 text/html this patient is having significant BPH symptoms. He has been taking the daily Cialis for over a year but he is still having to get up between 3-5 times per night. He has a diabetic and he has morbid obesity I am not sure his diabetes is well controlled. He does not have the best stream he says it dribbles He also says the Cialis seems to help a little bit with the erections but it is mainly for his BPH but the symptoms are not improving as much is a should in his concerning He has not had any gross hematuria. He has not had any urinary tract infections Antonio Salgado MD [address], [address], [place], [address], [employer] 06/20/2024 16:14:09 4 text/html when I last saw this patient he was having significant difficulty urinating he was dribbling and now after starting finasteride he is able to hold his urine and have a good stream and he is able to hold it for 2-3 hours which is a great improvement. However since his last visit he was diagnosed with stage IV colon cancer and has to have a port put in for chemotherapy. He also has cirrhosis of the liver so he has numerous medical issues going on but in terms of his prostate symptoms he has seen significant improvement Antonio Salgado MD [address], [address], [place], [address], [employer] 09/20/2024 12:27:42
--- OUTSIDE RECORDS SUMMARY | 2024-11-27 18:32 | XMS_ITS | Encounter Summary ---
Author Organization [facility] Health Address [address] [place] [address] Care Team Providers Care Senior Packaging Engineer Name Role Phone Ruth Chavez Juliane EXPORT COORDINATOR-SENIOR ELECTRONICS ENGINEER Primary Care Provid er Delmar Cyndee DO Unavailable [phone] Encounter Details Date Type Department Care Team (Late st Contact Info) Description 08/29/2024 Lab Requisition [facility] [address] [place] [address] Luann Hand MD [address] [place] [address] Social History Tobacco Use Types Packs/Day Years Used Date Smoking Tobacco: Former Cigarettes 1 55.1 S tarted: 1970 Smokeless Tobacco: Never Alcohol Use Standard Drinks/Week Comments Yes 5 (1 standard drink = 0.6 oz pur e alcohol) AUDIT-C Answer Date Recorded Q1: How often do you have a drink containing alcohol? 4 or more times a week 08/20/2024 Q2: How many drinks containi ng alcohol do you have on a typical day when you are drinking? 5 or 6 Q3: How often do you have si x or more drinks on one occasion? Daily or almost daily 08/20/2024 Overall Financial Resource Strain (CARDIA) Answe r Date Recorded How hard is it for you to pa y for the very basics like food, housing, medical care, and heating? Not hard at all 08/20/2024 [facility] - Occupational Stress Questionnaire Answer Date Recorded Do you feel stress - tense, restless, nervous, or anxious, or unable to sleep at night because your mind is troubled all the time - these days? Not at all 08/20/2024 Hunger Vital Sign Answer Date Recorded Within the past 12 months, y ou worried that your food would run out before you got the money to buy more. Never true 08/20/20 24 Within the past 12 months, t he food you bought just didn't last and you didn't have money to get more. Never true 08/20/2024 PRAPARE - Transportation Answer Date Re corded In the past 12 months, has l ack of transportation kept you from medical appointments or from getting medications? No 08/11 In the past 12 months, has l ack of transportation kept you from meetings, work, or from getting things needed for daily living? No 08/20/2024 Housing Stability Vital Sign Answer Frankie e Recorded In the last 12 months, was t here a time when you were not able to pay the mortgage or rent on time? No 08/20/2024 In the past 12 months, how m any times have you moved where you were living? 0 08/20/2024 At any time in the [facility], were you homeless or living in a intermediate (including now)? No 08/20/2024 Sex and Gender Information Value Date Recorded Sex Assigned at Not on file Gender Identity Not on file Sexual Orientation Not on file documented as of this encounter Functional Status Functional Status Response Date of Assess ment Is person deaf or have serious hearing difficult y? No 08/20/2024 Is person blind or have serious difficulty seein g? No 08/20/2024 Does person have serious dif ficulty walking/climbing stairs? No 08/20/2024 Does person have difficulty dressing/bathing? No 08/20/2024 Does person have difficulty doing errands alone? No 08/20/2024 Cognitive Status Response Date of Assessm ent Does person have difficulty concentrating/remembering/making decisions? No 08/20/2024 documented as of this encounter Plan of Treatment Upcoming Encounters Date Type Department Care Team (Late st Contact Info) Description 05/28/2025 2:00 PM CDT Office Visit [facility] [address] [place] [address] Herber Schrader MD [address] [place] [address] documented as of this encounter Procedures Procedure Name Priority Date/Time Associated Diagnosis Comments SLIDE PREP HISTOLOGY Routine 08/23/2024 2:15 PM RESEARCH AND EVALUATION MANAGER documented in this encounter Results * SLIDE PREP HISTOLOGY (08/23/2024 2:15 PM RESEARCH AND EVALUATION MANAGER) Client Specimen ID # [id number] 08/11 10:20 AM [facility] Number of Slides Received 6 10:20 AM [facility] Comment MMR panel 10:20 AM [facility] Slide Prep Complete Testing is technical only and does not require an interpretation of results. 10:20 AM [facility] Comment:All histochemical an d/or immunohistochemical results are interpreted with controls that demonstrate appropriate staining reactions before reporting results. Note on use of immunocytochemistry reagents: This test was developed and its performance characteristic determined by [facility], Department of Laboratory Medicine. It has not been cleared or approved by the U.S. Food and Drug Administration (FDA). The FDA has determined that such clearance or approval is not necessary. The test is used for clinical purpose. It should not be regarded as investigational or for research. This laboratory is certified to perform high complexity testing. The performance characteristics of the IHC/NISH assays have been validated on formalin-fixed paraffin embedded tissues only. The assays have not been validated on decalcified tissues. Results should be interpreted with caution. Pathology/Cytolo gy (Large Intestine, NOS) 08/23/2024 2:15 PM RESEARCH AND EVALUATION MANAGER 08/29/2024 10:18 AM RESEARCH AND EVALUATION MANAGER Luann Hand MD LAB - PATHOLOGY/CY TOLOGY ORDERABLES [facility] [address] [place] [address] documented in this encounter Visit Diagnoses Not on filedocumented in this encounter Care Teams Senior Packaging Engineer Relationship Specialty Start Date End Date Ruth Chavez March,N-SENIOR ELECTRONICS ENGINEER [address] [place] [address] PCP - General Nurse Practitioner 08/22/24 Cyndee Jacobsen DO [facility] [place] [address] Resident Hematology and Oncology 09/04/24 documented as of this encounter
--- OUTSIDE RECORDS SUMMARY | 2024-11-27 18:32 | XMS_ITS | Encounter Summary ---
Author Organization [facility] Address [address] [place] [address] Care Team Providers Care Investigative Shopper Name Role Phone Unavailable Primary Care Provider Unavailabl e Prior Encounters Date Type Department Care Team Description 04/02/2021 Travel 03/26/2021 12:00 PM CDT Office Visit [facility] [address] [place] [phone] Candice Brush, ROULA 03/25/2021 Travel 03/25/2021 1:15 PM CDT Office Visit [facility] [address] [place] [phone] Cadnice Brush, DMD 10/30/2019 Converted CPS Chart Documents [facility] [address] [place] [phone] <No scans attached> 10/30/2019 Converted 13x Documents [facility] [address] [place] [phone] <No scans attached> 10/30/2019 Converted 13x Documents [facility] [address] [place] [phone] <No scans attached> 10/30/2019 Converted CPS Chart Documents [facility] [address] [place] [phone] <No scans attached> Last Filed Vital Signs Vital Sign Reading Time Taken Comments Blood Pressure 139/82 03/25/2021 1:16 PM CDT Pulse 65 03/25/2021 1:16 PM CDT Temperature - - Respiratory Rate - - Oxygen Saturation - - Inhaled Oxygen Concentration - - Weight - - Height - - Body Mass Index - - Plan of Treatment Not on file Procedures Procedure Name Priority Date/Time Associated Diagnosis Comments FINAL IMPRESSION Routine 03/26/2021 12:0 0 PM CDT 26 EXTRACTION, ERUPTED TOOTH REQUIRING REMOVAL OF BONE AND/OR SECTIONING OF TOOTH Routine 02/24/2021 2:00 AM CDT 25 EXTRACTION, ERUPTED TOOTH REQUIRING REMOVAL OF BONE AND/OR SECTIONING OF TOOTH Routine 02/24/2021 2:00 AM CDT 24 EXTRACTION, ERUPTED TOOTH REQUIRING REMOVAL OF BONE AND/OR SECTIONING OF TOOTH Routine 02/24/2021 2:00 AM CDT 23 EXTRACTION, ERUPTED TOOTH REQUIRING REMOVAL OF BONE AND/OR SECTIONING OF TOOTH Routine 02/24/2021 2:00 AM CDT 23 LIMITED ORAL EVALUATION - PROBLEM FOCUSED Routine 02/24/2021 2:00 AM CDT PANORAMIC RADIOGRAPHIC IMAGE Routine 02/24/2021 2:00 AM CDT ADDITIONAL X-RAY Routine 02/24/2021 2:00 AM CDT ADDITIONAL X-RAY Routine 02/24/2021 2:00 AM CDT ADDITIONAL X-RAY Routine 02/24/2021 2:00 AM CDT SINGLE X-RAY Routine 02/24/2021 2:00 AM CDT CANCELLED APPOINTMENT Routine 12/26/2020 2:00 AM CDT 3 ENDODONTIC THERAPY, MOLAR TOOTH (EXCLUDING FINAL PENTECOSTAL) Routine 12/23/2020 2:00 AM CDT 3 CROWN PFM POST Routine 12/23/2020 2:00 AM CDT 3 LIMITED ORAL EVALUATION - PROBLEM FOCUSED Routine 12/23/2020 2:00 AM CDT PANORAMIC RADIOGRAPHIC IMAGE Routine 12/23/2020 2:00 AM CDT ADDITIONAL X-RAY Routine 12/23/2020 2:00 AM CDT SINGLE X-RAY Routine 12/23/2020 2:00 AM CDT Visit Diagnoses Not on file Insurance [facility] PPO
--- OUTSIDE RECORDS SUMMARY | 2024-11-27 18:32 | XMS_ITS ---
Author Organization [facility] Address [address] [place] [address] Care Team Providers Care Provider Relations Manager Name Role Phone Unavailable Unavailable Unavailable Surgery Details Not on file Complications Check Surgery Details section. Procedure Estimated Blood Loss Check Surgery Details section. Procedure Findings Check Surgery Details section. Procedure Specimens Taken Check Surgery Details section.
--- OUTSIDE RECORDS SUMMARY | 2024-11-27 18:32 | XMS_ITS | CCD ---
Author Organization [facility] Address [address] [place] [address] Care Team Providers Care Marine Radio Installer And Servicer Name Role Phone Unavailable Primary Care Provider Unavailabl e Allergies No known active allergies Medications diclofenac-misopro stoL (ARTHROTEC 75) 75-200 mg-mcg EC tablet 01/09/2021 Active gabapentin (NEURONTIN) 300 mg capsule 01/09/2021 Active olmesartan-amLODIP in-hcthiazid 40-10-25 mg tablet 01/09/2021 Active Active Problems No known active problems Social History Tobacco Use Types Packs/Day Years Used Date Smoking Tobacco: Never Assessed Sex and Gender Information Value Date Recorded Sex Assigned at Not on file Legal Sex Male 11:18 AM PDT Gender Identity Not on file Sexual Orientation Not on file Last Filed Vital Signs Vital Sign Reading Time Taken Comments Blood Pressure 139/82 03/25/2021 1:16 PM CDT Pulse 65 03/25/2021 1:16 PM CDT Temperature - - Respiratory Rate - - Oxygen Saturation - - Inhaled Oxygen Concentration - - Weight - - Height - - Body Mass Index - - Plan of Treatment Not on file
--- OUTSIDE RECORDS SUMMARY | 2024-11-27 18:32 | XMS_ITS ---
Author Name Mely Alejandre Address [address] [place] [address] [facility], Address [address] [place] [address] Care Team Providers Care Splunk Dashboard Developer Name Role Phone Mely Alejandre Primary Care Physician Unavailab Mely Hensley Preferred Provider Unavailable Plan of Treatment Planned Activity Comments Planned Date Planned Time Plan /Goal Stress Test (exercise) 05/29/2022 12:00 AM Medications Active Name Start Date Estimated Comple tion Date SIG Comments levothyroxine 25 04/17/2022 amlodipine 10 04/17/2022 take 1 tablet (10 mg) by oral route once daily diclofenac sodium 75 04/17/2022 take 1 tablet (75 mg) by oral route 2 times per day losartan 50 mg tablet take 1 tablet (50 mg) by oral route once daily vitamin E 400 unit capsule take 2 capsules by oral route daily Name Start Date Expiration Date SIG Comments atorvastatin 20 mg tablet 05/21/2022 05/16/2023 ta ke 1 tablet (20 mg) by oral route once daily at bedtime for 90 days Problem List Description Status Onset Erectile dysfunction Active 04/20/2022 Type 2 diabetes mellitus wit h other circulatory complication, without long-term current use of insulin Active 04/20/2022 Type 2 diabetes mellitus wit h diabetic polyneuropathy, without long-term current use of insulin Active 04/20/2022 Peripheral neuropathy Active 04/20/2022 BPH (benign prostatic hyperplasia) Active 04/20/2022 Fatty liver Active 04/20/2022 Hypertension Active 04/20/2022 Hypothyroidism Active 04/20/2022 Chest pain Active 04/20/2022 Osteoarthritis Active 04/20/2022 Alcohol dependence in early full remission Activ e 04/20/2022 Class 1 obesity with body ma ss index (BMI) of 34.0 to 34.9 in adult, unspecified obesity type, unspecified whether serious comorbidity present Active 04/20/2022 Alcoholic fatty liver Active 04/24/2022 Alcoholic liver disease, unspecified Active 04/24/2022 Type 2 diabetes mellitus wit h other specified complication, without long-term current use of insulin Active 04/24/2022 Class 2 severe obesity with serious comorbidity and body mass index (BMI) of 35.0 to 35.9 in adult, unspecified obesity type Active 05/15/2022 Hyperlipidemia Active 05/28/2022 Alcoholic cirrhosis, unspecified whether ascites present Active 05/28/2022 Tinnitus Active 05/29/2022 Vital Signs Date Time BP-Sys(mm[Hg] BP-Sailaja(mm[Hg]) HR(bpm) RR(rpm) Temp WT HT HC BMI BSA BMI Percentile O2 Sat(%) 2021 9:54: 00 AM 128 mm[Hg] 76 mm[Hg] 67 {beats}/ min 18 rpm 97.80 8 F 220 .25 3 lbs 66. 016 in 35.5 326 kg/m 2 2.15 72 m2 93 % 022 1:28: 00 PM 129 mm[Hg] 79 mm[Hg] 62 {beats}/ min 18 rpm 97.59 2 F 218 .50 3 lbs 66. 016 in 35.2 5 kg/m 2 2.15 m2 95 % 022 2:31: 00 PM 116 mm[Hg] 71 mm[Hg] 64 {beats}/ min 18 rpm 98.00 6 F 213 .50 3 lbs 66. 016 in 34.4 436 kg/m 2 2.12 39 m2 96 % Social History Name Description Comments Marital Status: Education: Some Lives With Spouse Work: Disability Ambulatory Status: Independent Alcohol Light History of Procedures Date Ordered Description Order Status 05/14/2022 12:00 AM COMPLETE CBC W/AUTO DIFF WBC R eturned 05/14/2022 12:00 AM COMPREHEN METABOLIC PANEL Retu rned 05/14/2022 12:00 AM ASSAY OF FREE THYROXINE Return ed 05/14/2022 12:00 AM ASSAY THYROID STIM HORMONE Ret urned 05/14/2022 12:00 AM LIPID PANEL Returned 05/14/2022 12:00 AM VITAMIN D 25 HYDROXY Returned 05/14/2022 12:00 AM VITAMIN B-12 Returned 05/14/2022 12:00 AM ASSAY OF TOTAL TESTOSTERONE Re turned 05/14/2022 12:00 AM ASSAY OF SERUM ALBUMIN Returne d 05/14/2022 12:00 AM ASSAY OF SEX HORMONE GLOBUL Re turned 05/27/2022 10:24 AM UPR/L XTREMITY ART 2 LEVELS R eviewed 05/27/2022 10:25 AM GLYCOSYLATED HEMOGLOBIN TEST Reviewed 05/27/2022 10:29 AM UPR/L XTREMITY ART 2 LEVELS R eviewed 05/27/2022 10:40 AM GLYCOSYLATED HEMOGLOBIN TEST Reviewed 05/29/2022 12:00 AM Annual Visit (G0439) Reviewed 05/27/2022 12:00 AM EYE EXAM WITH PHOTOS Reviewed 05/27/2022 12:00 AM MICROALBUMIN QUANTITATIVE Ret urned 05/27/2022 12:00 AM ASSAY OF URINE CREATININE Ret urned Results Summary Date and Description Results 04/17/2022 2:34 PM BP Monitor @home Yes 05/14/2022 1:32 PM BP Monitor @home Yes 05/14/2022 1:35 PM AUDIT - C 5Marijuana Use 0Drug Use/Rx Abuse 0 05/14/2022 1:35 PM Mini - Cog 4 05/14/2022 1:36 PM PHQ-2 0 05/14/2022 1:38 PM VES - 13 2 05/14/2022 1:39 PM SDOH - Housing Shyanne rns NoSDOH - Food Access Concerns (Run Out of Food Now) NoSDOH - Food Access Concerns (Ran Out of Food in Last 2 Months) NoSDOH - Medication Assistance NoSDOH - Health Literacy NoSDOH - Loneliness Score 3 05/18/2022 1:24 PM ALBUMIN 4.0 g/dLSEX HORMONE BINDING GLOBULIN 37.40 nmol/LTESTOSTERONE, FREE 57.60 pg/mLTESTOSTERONE,BIOAVAILABLE 105.9TESTOSTERONE, TOTAL, MS 465.0 ng/dLCHOLESTEROL, TOTAL 192.0 mg/dLHDL CHOLESTEROL 54.0 mg/dLTRIGLYCERIDES 141.0 mg/dLLDL-CHOLESTEROL 113.0 mg/dLCHOL/HDLC RATIO 3.60 RatioNON HDL CHOLESTEROL 138.0 mg/dLGLUCOSE 115.0 mg/dLUREA NITROGEN (BUN) 13.0 mg/dLCREATININE 0.730 mg/dLEGFR 100.0 mL/min/1.73m BUN/CREATININE RATIO NOT APPLICABLE (calc)SODIUM 137.0 mmol/LPOTASSIUM 4.60 mmol/LCHLORIDE 103.0 mmol/LCARBON DIOXIDE 24.0 mmol/LCALCIUM 9.10 mg/dLPROTEIN, TOTAL 7.60 g/dLALBUMIN 4.0 g/dLGLOBULIN 3.60 g/dLALBUMIN/GLOBULIN RATIO 1.10 (calc)BILIRUBIN, TOTAL 1.20 mg/dLALKALINE PHOSPHATASE 77 U/LAST 19 U/LALT 22 U/LWHITE BLOOD CELL COUNT 7.60 x10E3/uLRED BLOOD CELL COUNT 4.520 x10E6/uLHEMOGLOBIN 14.70 g/dLHEMATOCRIT 43.0 %MCV 95.10 fLMCH 32.50 pgMCHC 34.20 g/dLRDW 12.50 %PLATELET COUNT 262.0 x10E3/uLMPV 9.80 fLABSOLUTE NEUTROPHILS 4765 cells/uLABSOLUTE LYMPHOCYTES 2060 cells/uLABSOLUTE MONOCYTES 600 cells/uLABSOLUTE EOSINOPHILS 114 cells/uLABSOLUTE BASOPHILS 61 cells/uLNEUTROPHILS 62.70 %LYMPHOCYTES 27.10 %MONOCYTES 7.90 %EOSINOPHILS 1.50 %BASOPHILS 0.8 %BASOPHILS 0.8 %VITAMIN B12 307.0 pg/mLTSH W/REFLEX TO FT4 3.13VITAMIN D,25-OH,TOTAL,IA 30.0 ng/mL 05/27/2022 9:56 AM BP Monitor @home Yes 05/27/2022 9:57 AM Pain Scale 0 05/27/2022 10:25 AM Hemoglobin A1c 6.30 % 05/27/2022 10:29 AM QuantaFlo Right Foot 1.350 UnitsQuantaFlo Left Foot 1.350 Units 05/27/2022 10:40 AM Hemoglobin A1c 6.30 % 05/28/2022 7:14 AM CREATININE, RANDOM U RINE 1.840 mg/mLALBUMIN, URINE 0.7ALBUMIN/CREATININE RATIO, RANDOM URINE 4 2022 9:21 AM DM Eye Exam: Result: [facility] - Eye Exam Compliant History of Past Illness Name Date of Onset Comments Hypertension 04/17/2022 14:49:39 Erectile dysfunction 04/17/2022 14:50:20 Erectile dysfunction 04/20/2022 04/17/2022- Pt c/o ED onset 8-10 yrs ago- Pt has tried Viagra, but it gave him a headache.- Pt has tried double dose of Cialis with no results- Will review records and reassess at next visit- Will submit [place] consult for urology after [facility] Type 2 diabetes mellitus wit h other circulatory complication, without long-term current use of insulin 04/20/2022 04/17/2022- see below Type 2 diabetes mellitus wit h diabetic polyneuropathy, without long-term current use of insulin 04/20/2022 04/17/2022- Pt endors es dx- will review records and reassess at next visit Peripheral neuropathy 04/20/2022 04/17/2022 - pt endorses dx- will review records and reassess at next visit BPH (benign prostatic hyperplasia) 04/20/2022 04/17/2022- pt endorses an enlarged prostate- Admits that his urine is trickling out - Will review records and reassess at next visit Fatty liver 04/20/2022 04/17/2022- Pt e ndorses dx- will review records and reassess at next visit Hypertension 04/20/2022 04/17/2022- BP t ryanne is 116/71- Pt endorses dx - Pt reports being hospitalized three times for high blood pressure- Pt take amlodipine 10 mg QD- losartan potassium 100 mg - will review records and reassess at next visit Hypothyroidism 04/20/2022 04/17/2022- pt e ndorses dx- Pt says his old doctor said pt has low thyroid levels, but pt denies understanding dx- Pt takes levothyroxine 25 mg- will review records and reassess Chest pain 04/20/2022 04/17/2022- pt c /o of lower chest pain whenever he is tired. Says pain began after gallbladder removal surgery.- Pt reports previous MRIs and ultrasounds. - will review records and reassess. Osteoarthritis 04/20/2022 04/17/2022- Pt c /o pain in neck and back- Pt admits taking diclofenac sodium 75 mg BID for his neck with relief. - Pt admits taking Vicodin and Oxycodone in the past for his back without relief- Will review records and reassess at next visit Alcohol dependence in early full remission 04/20/2022 04/17/2022- Pt reports hx of alcoholism- States that he barely drinks anymore because of his new partner who has encouraged him to quit - Will f/u at next visit Class 1 obesity with body ma ss index (BMI) of 34.0 to 34.9 in adult, unspecified obesity type, unspecified whether serious comorbidity present 04/20/2022 04/17/2022- BMI today is 34. 44- Will f/u at next visit Alcoholic fatty liver 04/24/2022 Alcoholic liver disease, unspecified 04/24/2022 04/17/2022- Pt endorses dx a nd attributes to hx of alcohol abuse- will review records and reassess at next visit Type 2 diabetes mellitus wit h other specified complication, without long-term current use of insulin 04/24/2022 04/17/2022- d/t ED, will per form QFLO at next visit and request medical records- see below Class 2 severe obesity with serious comorbidity and body mass index (BMI) of 35.0 to 35.9 in adult, unspecified obesity type 05/15/2022 05/14/2022- BMI today is 35.25.- Pt reports eating more healthy foods and being more active than he used to be.- Will CTM. Hyperlipidemia 05/28/2022 Alcoholic cirrhosis, unspeci fied whether ascites present 05/28/2022 Tinnitus 05/29/2022 05/27/2022- Pt e ndorses tinnitus. - Pt denies using Q-tips on his ears.- Pt c/o R ear pain.- Bilateral ear canal irritation per PE.- Monitor. Erectile dysfunction Apr 17 2022 2:52PM Type 2 diabetes mellitus wit h diabetic polyneuropathy Apr 17 2022 2:52PM Peripheral neuropathy Apr 17 2022 2:52PM BPH (benign prostatic hyperplasia) Apr 17 2022 2:52PM Hypertension Apr 17 2022 2:52PM Hypothyroidism Apr 17 2022 2:52PM Chest pain Apr 17 2022 2:52PM Osteoarthritis Apr 17 2022 2:52PM Alcohol dependence in early full remission Apr 17 2022 2:52PM Obesity, unspecified Apr 17 2022 2:52PM Body mass index [BMI] 34.0-3 4.9, adult Apr 17 2022 2:52PM Type 2 diabetes mellitus wit h other specified complication, without long-term current use of insulin Apr 17 2022 2:52PM Alcoholic liver disease, unspecified Apr 17 2022 2:52PM Erectile dysfunction May 14 2022 1:40PM Hypertension May 14 2022 1:40PM Peripheral neuropathy May 14 2022 1:40PM Type 2 diabetes mellitus wit h other specified complication, without long-term current use of insulin May 14 2022 1:40PM Morbid (severe) obesity due to excess calories May 14 2022 1:40PM Body mass index [BMI] 35.0-3 5.9, adult May 14 2022 1:40PM Erectile dysfunction May 22 2022 8:20AM Hypertension May 27 2022 10:24AM Type 2 diabetes mellitus wit h other circulatory complication, without long-term current use of insulin May 27 2022 10:25AM Alcohol dependence in early full remission May 27 2022 10:25AM Alcoholic fatty liver May 27 2022 10:25AM BPH (benign prostatic hyperplasia) May 27 2022 10:25AM Chest pain May 27 2022 10:25AM Morbid (severe) obesity due to excess calories May 27 2022 10:25AM Body mass index [BMI] 35.0-3 5.9, adult May 27 2022 10:25AM Erectile dysfunction May 27 2022 10:25AM Hypertension May 27 2022 10:25AM Hypothyroidism May 27 2022 10:25AM Osteoarthritis May 27 2022 10:25AM Peripheral neuropathy May 27 2022 10:25AM Type 2 diabetes mellitus wit h diabetic polyneuropathy May 27 2022 10:25AM Type 2 diabetes mellitus wit h other specified complication, without long-term current use of insulin May 27 2022 10:25AM Hyperlipidemia May 27 2022 10:25AM Alcoholic cirrhosis, unspeci fied whether ascites present May 27 2022 10:25AM Encounter for annual general medical examination with abnormal findings in adult May 27 2022 10:25AM Chest pain May 29 2022 8:55AM Tinnitus May 27 2022 10:25AM Cataract May 27 2022 10:25AM Payers Insurance Name Company Name Plan Name Plan Number Policy Number Policy Group Number Start Date [employer] - [id number] [employer] (PPO)-CAP [id number] Tuesday, 2022 [place] [id number] N/A [employer] - [id number] [employer] (PPO) [id number] Monday, 2021 History of Encounters Visit Date Visit Type Provider 05/27/2022 In Office Visit Scott Borrero MD 05/15/2022 In Office Visit Visits C. Nurse Other 05/14/2022 In Office Visit Scott Borrero MD 04/17/2022 In Office Visit Scott Borrero MD
--- OUTSIDE RECORDS SUMMARY | 2024-11-27 18:32 | XMS_ITS | Clinical Summary ---
Author Organization [facility] Address [address] [place] [address] Care Team Providers Care Cath Laboratory Technician Name Role Phone Unavailable Primary Care Provider [...] Mass Index - - Plan of Treatment Health Maintenance Due Date Last Done Comments Dental Prophylaxis 1955 Meningococcal B Vaccine Aged Out No l onger eligible based on patient's age to complete this topic Insurance [facility] PPO
--- OUTSIDE RECORDS SUMMARY | 2024-11-27 18:32 | XMS_ITS | Referral Summary ---
Author Organization [facility] Address [address] [place] [address] Care Team Providers Care Grounds Crew Supervisor Name Role Phone Unavailable Primary Care Provider [...] - Plan of Treatment Not on file Insurance [facility] PPO
--- OUTSIDE RECORDS SUMMARY | 2024-11-27 18:33 | XMS_ITS | Referral Summary ---
Author Organization [facility] Address [address] [facility] [address] Care Team Providers Care Senior Relationship Manager Name Role Phone Ruth Chavez MarchN-INDUSTRIAL SERVICES WORKER Primary Care Provid er Cyndee Jacobsen DO Unavailable [phone] Source Comments [facility],non-owned Affiliates and Associated Physician Practices is amultiple site organization consisting of ambulatory clinics and hospital sitesin [place], [place], [place] and [place]. This disclosure is being madepursuant to the Care Everywhere program and may not contain all information available regarding this patient. Last updated 18.[facility] Encounters Date Type Department Care Team Description 11/24/2024 Orders Only [facility] - Hematology/[place] [address] [place] [address] Elizabeth Newby APRN-CNP Malignant neoplasm of ascending colon (HCC) 11/23/2024 Orders Only [facility] - Hematology/[place] [address] [place] [address] Elizabeth Newby APRN-CNP 10/24/2024 Telephone [facility] - Hematology/[place] [address] [place] [address] Mattie Tong MD Follow-up 10/23/2024 Orders Only [facility] - Hematology/[place] [address] [place] [address] Elizabeth Newby, PROCESS SAFETY SPECIALIST-INDUSTRIAL SERVICES WORKER 10/17/2024 Travel 10/17/2024 8:55 AM EDI PROGRAMMER - 10/17/2024 11:59 PM EDI PROGRAMMER Hospital Encounter [facility] [address] [place] [address] Unknown, Provider Discharge Disposition: Home or Self Care 10/17/2024 9:40 AM EDI PROGRAMMER Office Visit [facility] - Hematology/[place] [address] [place] [phone] Cyndee Jacobsen DO Malignant neoplasm of ascending colon (HCC) (Primary Dx); Peritoneal carcinomatosis (HCC); Malignant neoplasm of colon, unspecified part of colon (HCC) 10/12/2024 Orders Only [facility] - Hematology/[place] [address] [place] [phone] Mattie Tong MD 10/09/2024 Travel 10/09/2024 2:30 PM EDI PROGRAMMER Office Visit [facility] - GI [address] [facility] [address] [place] [address] Wayne Doss MD Elbeshbeshy, Hany Ahmed, MD Malignant ascites (HCC) (Primary Dx); Type 2 diabetes mellitus without complication, without long-term current use of insulin (HCC); Hypothyroidism, unspecified type; Thrombosis of superior vena cava (HCC); Malignant neoplasm of ascending colon (HCC); Alcoholic cirrhosis of liver with ascites (HCC); Peritoneal carcinomatosis (HCC); Abdominal pain, generalized; Acute gastric ulcer with hemorrhage; Esophageal varices without bleeding, unspecified esophageal varices type (HCC); Anticoagulant long-term use 09/28/2024 Travel 09/28/2024 5:35 PM EDI PROGRAMMER - 09/28/2024 5:39 PM EDI PROGRAMMER Emergency [facility] [address] [place] [address] Discharge Disposition: Left Against Medical Advice/Discontinued Care 09/26/2024 Travel 09/26/2024 1:00 PM EDI PROGRAMMER Office Visit [facility] - Hematology/[place]co [place] [address] [place] [phone] Newby Elizabeth, PROCESS SAFETY SPECIALIST-INDUSTRIAL SERVICES WORKER Malignant neoplasm of ascending colon (HCC) (Primary Dx); Anemia, unspecified type 09/25/2024 Orders Only [facility] - Hematology/[place] [address] [place] [phone] Newby, Elizabeth, PROCESS SAFETY SPECIALIST-INDUSTRIAL SERVICES WORKER 09/25/2024 Orders Only [facility] - Hematology/[place] [address] [place] [phone] Newby Elizabeth, PROCESS SAFETY SPECIALIST-INDUSTRIAL SERVICES WORKER 09/25/2024 Orders Only [facility] - Hematology/[place]co [place]y [address] [place] [address] Mattie Tong MD Malignant neoplasm of ascending colon (HCC) 09/21/2024 Travel 09/21/2024 5:57 AM EDI PROGRAMMER - 09/21/2024 9:29 AM EDI PROGRAMMER Hospital Encounter [facility] [address] [place] [address] Víctor Hooper MD Farmer, Adam D, MD [facility] Discharge Disposition: Home or Self Care 09/20/2024 Orders Only [facility] Physician [facility] - Hematology/Onco logy [address] [place] [phone] Cyndee Jacobsen DO Peritoneal carcinomatosis (HCC); Malignant neoplasm of colon, unspecified part of colon (HCC) 09/19/2024 Travel 09/19/2024 10:20 AM EDI PROGRAMMER Office Visit [facility] Physician [facility] - Hematology/Onco logy [address] [place] [phone] Víctor Hooper MD Weidenbaum, Chloe, DO Malignant neoplasm of ascending colon (HCC) (Primary Dx); Peritoneal carcinomatosis (HCC); Malignant neoplasm of colon, unspecified part of colon (HCC) 09/15/2024 Telephone [facility] - Hematology/[place]co [place]y [address] [place] [address] Cyndee Jacobsen, DO Appointment (Spoke with pt abt appt on Wednesday09/19/24 at 10:20 AM. Told pt there is free fire pot operator parking and to check in at desk at right upon arrival before going to second floor. Confirmed. ) 09/11/2024 Telephone Transitional Care at [facility] [address] [place] [address] Piper Morrison RNtool and die assembler 09/02/2024 10:53 PM EDI PROGRAMMER - 09/07/2024 11:18 AM EDI PROGRAMMER Hospital Encounter [facility] Early Admission Unit [address] [place] [address] Sylvester Mathis MD Purdy, Justin, MD Morreale, Peter J III, MD Emergency Medicine Discharge Disposition: Home or Self Care 09/04/2024 9:48 AM EDI PROGRAMMER Anesthesia Event [facility] [address] [place] [address] Imelda Cm MD 09/04/2024 9:19 AM EDI PROGRAMMER - 09/04/2024 9:49 AM EDI PROGRAMMER Surgery [facility] [address] [place] [address] Ian Ellsworth MD ESOPHAGOGASTRODUODENOSCOPY (EGD) DIAGNOSTIC 09/02/2024 Travel 2024 Telephone [facility] - Hematology/[place] [address] [place] [address] Cyndee Jacobsen, Appointment (LVM for pt abt appt on Wednesday09/05/24 at 10:00 AM. Told pt there is free fire pot operator parking and to check in at desk on right upon arrival then go to second floor. Also told pt happy birthday because it is his bday today. ) 08/31/2024 Telephone [facility] - GI [address] [facility] [address] [place] [address] Jake Mathis MD Results 08/29/2024 Lab Requisition [facility] [address] [place] [phone] Luann Hand MD from Last 3 Months Allergies No known active allergies Medications * Be aware that medications may not be up to date on this document. Alwaysverify current medications with the patient. Medication Sig Dispensed Refills Start Date End Date Status levothyroxine (Synthroid) 25 MCG tablet Take 1 (one) tablet by mouth daily before breakfast Active amLODIPine (Norvasc) 10 MG tablet Take 1 (one) tablet by mouth once daily Active finasteride (Proscar) 5 MG tablet Take 1 (one) tablet by mouth once daily Active losartan (Cozaar) 100 MG tablet Take 1 (one) tablet by mouth once daily Active diclofenac sodium EC (Voltaren) 75 MG tablet Take 1 (one) tablet by mouth 2 times daily Active acetaminophen (Tylenol) 500 MG tablet Take 1 (one) tablet by mouth every 6 hours as needed for Fever or Pain Maximum allowable Acetaminophen amount = 2 Grams (2000 mg) / 24 hours. 90 tablet 1 08/25/2024 Active calcium carbonate (Tums) 500 MG chew tablet Take 1 (one) tablet by mouth as needed with food for Heartburn 08/25/2024 Active metFORMIN (Glucophage) 500 MG tablet Take 1 (one) tablet by mouth 2 times daily with morning and evening meal 60 tablet 08/25/2024 Active furosemide (Lasix) 40 MG tablet Take 1 (one) tablet by mouth once daily 30 tablet 08/26/2024 Active spironolactone (Aldactone) 100 MG tablet Take 1 (one) tablet by mouth once daily 30 tablet 08/26/2024 Active cyanocobalamin 100 MCG tablet Take 1 (one) tablet by mouth once daily 30 tablet 08/26/2024 Active folic acid (Folvite) 1 MG tablet Take 1 (one) tablet by mouth once daily 30 tablet 11 08/26/2024 Active polyethylene glycol 3350 (Miralax) 17 g packet Take 17 (seventeen) g by mouth once daily 30 packet 08/26/2024 Active simethicone (Mylicon) 80 MG chew tablet Take 1 (one) tablet by mouth 4 times daily as needed for Gas Pain 08/25/2024 Active tamsulosin (Flomax) 0.4 MG capsule Active dutasteride (Avodart) 0.5 MG capsule Take 1 (one) capsule by mouth once daily Active atorvastatin (Lipitor) 20 MG tablet Active pantoprazole EC (Protonix) 40 MG tablet Take 1 (one) tablet by mouth 2 times daily, before breakfast and supper for 60 days 09/07/2024 Active ondansetron, disintegrating, (Zofran ODT) 4 MG tablet Take 1 (one) tablet by mouth every 6 hours as needed for Nausea/Vomiting Allow tablet to dissolve on the tongue 90 tablet 3 09/19/2024 Active prochlorperazine (Compazine) 10 MG tabletIndications:M alignant neoplasm of ascending colon (HCC) Take 1 (one) tablet by mouth every 6 hours as needed for Nausea/Vomiting 30 tablet 6 09/25/2024 Active ondansetron (Zofran) 8 MG tabletIndications:M alignant neoplasm of ascending colon (HCC) Take 1 (one) tablet by mouth every 8 hours as needed for Nausea/Vomiting 20 tablet 6 09/25/2024 Active enoxaparin (Lovenox) 120 MG/0.8ML injection Waste 10 mg and inject 110 (one hundred five) mg subcutaneously every 12 hours 48 mL 11 09/25/2024 Active senna (Senokot) 8.6 MG tablet Take 1 (one) tablet by mouth nightly as needed for Constipation 90 tablet 2 09/26/2024 Active OLANZapine (ZyPREXA) 5 MG tabletIndications:C ancer Chemotherapy-Induce d Nausea and Vomiting Take 1 (one) tablet by mouth once daily Can take at bedtime if makes sleepy Reasons: Nausea and Vomiting caused by Cancer Chemotherapy 30 tablet 3 10/17/2024 Active lidocaine (Lidoderm) 5 % patchIndications:Ma lignant neoplasm of ascending colon (HCC) Apply 1 (one) patch to skin once daily Apply patch to most painful area and remove after 12 hours. May reapply a new patch 12 hours later. 10 patch 10/17/2024 Active oxyCODONE, immediate release, (Roxicodone) 10 MG tabletIndications:P eritoneal carcinomatosis (HCC),Malignant neoplasm of colon, unspecified part of colon (HCC) Take 1 (one) tablet by mouth every 4 hours as needed for Pain 50 tablet 10/19/2024 Active famotidine (Pepcid) 40 MG tablet Take 1 (one) tablet by mouth once daily 31 tablet 3 10/23/2024 Active sucralfate (Carafate) 1 GM tablet Take 1 (one) tablet by mouth 4 times daily - before meals & nightly 120 tablet 3 10/23/2024 Active Active Problems Problem Noted Date Diagnosed Date Gastrointestinal hemorrhage, unspecified gastrointestinal hemorrhage type 11/25/2024 Neuropathy 09/04/2024 Hypertensive disorder 09/04/2024 Cirrhosis of liver 09/04/2024 Chronic back pain 09/04/2024 Anxiety 09/04/2024 Melena 09/03/2024 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 09/03/2024 Malignant neoplasm of ascending colon 09/03/2024 Cancer Staging:Clinical stage from 09/19/2024:Stage IVC(cTX, cN0, cM1c) - Signed by Cyndee Jacobsen DO on 09/20/2024 Abdominal pain, generalized 09/03/2024 Ascites due to alcoholic cirrhosis 09/03/2024 Type 2 diabetes mellitus wit hout complication, without long-term current use of insulin 09/03/2024 Hypothyroidism 09/03/2024 Thrombosis of superior vena cava 09/03/2024 SBO (small bowel obstruction) 08/17/2024 Peritoneal carcinomatosis 08/17/2024 Benign prostatic hyperplasia with urinary obstru ction 06/20/2024 Primary erectile dysfunction 06/12/2022 Spinal stenosis 02/25/2021 Resolved Problems Problem Noted Date Diagnosed Date Resolved Date Sepsis, due to unspecified o rganism, unspecified whether acute organ dysfunction present 08/17/2024 09/20/2024 Social History Tobacco Use Types Packs/Day Years Used Date Smoking Tobacco: Former Cigarettes 1 55.1 S tarted: 1970 Smokeless Tobacco: Never Tobacco Cessation:Counseling Given: Not Answered Alcohol Use Standard Drinks/Week Comments Not Currently 5 (1 standard drink = 0.6 oz pur e alcohol) AUDIT-C Answer Date Recorded Q1: How often do you have a drink containing alcohol? Never 09/21/2024 Q2: How many drinks containi ng alcohol do you have on a typical day when you are drinking? Patient does not drink Q3: How often do you have si x or more drinks on one occasion? Never 09/21/2024 Overall Financial Resource Strain (CARDIA) Answe r Date Recorded How hard is it for you to pa y for the very basics like food, housing, medical care, and heating? Not hard at all 09/04/2024 [facility] Occup[facility] ional [facility] - Occupational Stress Questionnaire Answer Date Recorded Do you feel stress - tense, restless, nervous, or anxious, or unable to sleep at night because your mind is troubled all the time - these days? Not at all 09/04/2024 Hunger Vital Sign Answer Date Recorded Within the past 12 months, y ou worried that your food would run out before you got the money to buy more. Never true 09/04/20 24 Within the past 12 months, t he food you bought just didn't last and you didn't have money to get more. Never true 09/04/2024 PRAPARE - Transportation Answer Date Re corded In the past 12 months, has l ack of transportation kept you from medical appointments or from getting medications? No 08/12 In the past 12 months, has l ack of transportation kept you from meetings, work, or from getting things needed for daily living? No 09/04/2024 Housing Stability Vital Sign Answer Frankie e Recorded In the last 12 months, was t here a time when you were not able to pay the mortgage or rent on time? No 09/04/2024 In the past 12 months, how m any times have you moved where you were living? 0 09/04/2024 At any time in the [facility] were you homeless or living in a prison (including now)? No 09/04/2024 Sex and Gender Information Value Date Recorded Sex Assigned at Not on file Gender Identity Not on file Sexual Orientation Not on file Last Filed Vital Signs Vital Sign Reading Time Taken Comments Blood Pressure 110/71 10/17/2024 9:28 AM EDI PROGRAMMER Pulse 84 10/17/2024 9:28 AM EDI PROGRAMMER Temperature 36.7 C (98 F) 10/17/2024 9:28 AM EDI PROGRAMMER Respiratory Rate 20 10/17/2024 9:28 AM EDI PROGRAMMER Oxygen Saturation 99% 10/17/2024 9:28 AM EDI PROGRAMMER Inhaled Oxygen Concentration - - Weight 91.4 kg (201 lb 8 oz) 10/17/2024 9:28 AM EDI PROGRAMMER Height 160 cm (5' 2.99 ) 10/17/2024 9:28 AM EDI PROGRAMMER Body Mass Index 35.7 10/17/2024 9:28 AM EDI PROGRAMMER Functional Status Functional Status Response Date of Assess ment Is person deaf or have serious hearing difficult y? No 09/21/2024 Is person blind or have serious difficulty seein g? No 09/21/2024 Does person have serious dif ficulty walking/climbing stairs? No 09/21/2024 Does person have difficulty dressing/bathing? No 09/21/2024 Does person have difficulty doing errands alone? No 09/21/2024 Cognitive Status Response Date of Assessm ent Does person have difficulty concentrating/remembering/making decisions? No 09/21/2024 Plan of Treatment Upcoming Encounters Date Type Department Care Team (Late st Contact Info) Description 05/28/2025 2:00 PM CDT Office Visit [facility] - GI [address] [place] [address], [place] [phone] Herber Schrader MD [address] [place] [address] [place] [address] Goals Goal Patient Goal Type Associated Problems Recent Progress Patient-Stated? Author Medication Management General On track( 024 2:47 PM EDI PROGRAMMER) No Deborah Christian, RN Note: Expected end date: ongoing Interventions: Take all medications as prescribed Let your doctor know right away about any changes in your medications Make sure to request a refill of your medication at least one week prior to your last dose Medical Devices Implanted Type Area Cell Room Supervisor Device Identifier Shelf Expiration Date Model / Serial / Lot Port Implinfn Powerport Clrvu Argd La Implanted:Qty: 1 on 09/21/2024 at [facility] [employer] 01/08/2026 [id number] / / [id number] Procedures Procedure Name Priority Date/Time Associated Diagnosis Comments MAGNESIUM BLOOD STAT 10/17/2024 9:09 AM EDI PROGRAMMER PHOSPHORUS BLOOD STAT 10/17/2024 9:09 AM EDI PROGRAMMER CBC W AUTO DIFFERENTIAL STAT 10/17/2024 9:09 AM EDI PROGRAMMER COMPREHENSIVE METABOLIC PANEL STAT 10/17/2024 9:09 AM EDI PROGRAMMER IRON + TRANSFERRIN PANEL Routine 10/17/2024 9:09 AM EDI PROGRAMMER Anemia, unspecified type FERRITIN Routine 10/17/2024 9:09 AM EDI PROGRAMMER Anemia, unspecified type PT-INR [facility] STAT 09/28/2024 10:46 AM EDI PROGRAMMER COMPREHENSIVE METABOLIC PANEL STAT 09/28/2024 10:46 AM EDI PROGRAMMER CBC W AUTO DIFFERENTIAL STAT 09/28/2024 10:46 AM EDI PROGRAMMER URINALYSIS W/MICROSCOPIC REFLEX TO CULTURE STAT 09/28/2024 10:46 AM EDI PROGRAMMER IR GILBERTO CATH INSERT Routine 09/21/2024 8:57 AM EDI PROGRAMMER Peritoneal carcinomatosis (HCC) Malignant neoplasm of colon, unspecified part of colon (HCC) GLUCOSE - POINT OF CARE Routine 09/21/2024 6:48 AM EDI PROGRAMMER PT-INR [facility] Routine 09/07/2024 12:23 AM EDI PROGRAMMER PTT [facility] Timed 09/07/2024 12:23 AM EDI PROGRAMMER Ascites due to alcoholic cirrhosis (HCC) CBC W/O DIFFERENTIAL AM Draw 09/07/2024 12:23 AM EDI PROGRAMMER PTT [facility] Timed 09/06/2024 5:28 PM EDI PROGRAMMER Thrombosis of superior vena cava (HCC) GLUCOSE - POINT OF CARE Routine 09/06/2024 10:06 AM EDI PROGRAMMER PTT [facility] Routine 09/06/2024 9:27 AM EDI PROGRAMMER GLUCOSE - POINT OF CARE Routine 09/06/2024 5:25 AM EDI PROGRAMMER BASIC METABOLIC PANEL (CALCIUM TOTAL) AM Draw 09/06/2024 12:47 AM EDI PROGRAMMER GLUCOSE - POINT OF CARE Routine 09/05/2024 9:27 PM EDI PROGRAMMER GLUCOSE - POINT OF CARE Routine 09/05/2024 6:27 PM EDI PROGRAMMER GLUCOSE - POINT OF CARE Routine 09/05/2024 12:35 PM EDI PROGRAMMER GLUCOSE - POINT OF CARE Routine 09/05/2024 6:05 AM EDI PROGRAMMER CBC W/O DIFFERENTIAL AM Draw 09/05/2024 1:02 AM EDI PROGRAMMER BASIC METABOLIC PANEL (CALCIUM TOTAL) AM Draw 09/05/2024 1:02 AM EDI PROGRAMMER GLUCOSE - POINT OF CARE Routine 09/05/2024 12:05 AM EDI PROGRAMMER GLUCOSE - POINT OF CARE Routine 09/04/2024 5:51 PM EDI PROGRAMMER GLUCOSE - POINT OF CARE Routine 09/04/2024 12:36 PM EDI PROGRAMMER PA ED EGD FLEX TRANSORAL DX 09/04/2024 9:43 AM EDI PROGRAMMER Melena EGD Routine 09/04/2024 9:26 AM EDI PROGRAMMER GLUCOSE - POINT OF CARE Routine 09/04/2024 9:13 AM EDI PROGRAMMER GLUCOSE - POINT OF CARE Routine 09/04/2024 6:12 AM EDI PROGRAMMER BASIC METABOLIC PANEL (CALCIUM TOTAL) AM Draw 09/04/2024 12:22 AM EDI PROGRAMMER Melena CBC W/O DIFFERENTIAL AM Draw 09/04/2024 12:22 AM EDI PROGRAMMER Melena PHOSPHORUS BLOOD Routine 09/04/2024 12:2 2 AM EDI PROGRAMMER Melena Malignant neoplasm of colon, unspecified part of colon (HCC) Abdominal pain, generalized GLUCOSE - POINT OF CARE Routine 09/04/2024 12:11 AM EDI PROGRAMMER GLUCOSE - POINT OF CARE Routine 09/03/2024 6:14 PM EDI PROGRAMMER GLUCOSE - POINT OF CARE Routine 09/03/2024 12:52 PM EDI PROGRAMMER BLOOD TYPE VERIFICATION STAT 09/03/2024 9:[address] ABDOMEN PELVIS W CONTRAST STAT 09/02/2024 10:39 PM EDI PROGRAMMER Melena Malignant neoplasm of colon, unspecified part of colon (HCC) Abdominal pain, generalized TYPE + SCREEN PANEL STAT 09/02/2024 9 :38 PM EDI PROGRAMMER PT-INR [facility] STAT 09/02/2024 9:38 PM EDI PROGRAMMER COMPREHENSIVE METABOLIC PANEL STAT 09/02/2024 9:38 PM EDI PROGRAMMER CBC W AUTO DIFFERENTIAL STAT 09/02/2024 9:38 PM EDI PROGRAMMER ENDOSCOPY, COLON, DIAGNOSTIC Routine 08/23/2024 1:34 PM EDI PROGRAMMER HEMOGLOBIN A1C Routine 08/23/2024 8:38 AM EDI PROGRAMMER HEPATITIS C AB SCREEN RFLX NAAT QUANT Routine 08/21/2024 7:37 AM EDI PROGRAMMER from Last 3 Months or Most Recently Relevant to Health Maintenance Results * (ABNORMAL) CBC W AUTO DIFFERENTIAL (10/17/2024 9:09 AM EDI PROGRAMMER) Only the most recent of3 resultswithin the time period is included. WBC 12.2(H) 4.0 - 10.7 x10E9/L 10/17/2024 9:35 AM [facility] RBC Count 3.78(L) 4.30 - 5.80 x10E12/L 10/17/2024 9:35 AM [facility] Hemoglobin 11.4(L) 13.3 - 17.5 g/dL 10/17/2024 9:35 AM [facility] Hematocrit 33.8(L) 38.7 - 51.1 % 10/17/2024 9:35 AM [facility] MCV 89.4 80.0 - 98.0 fL 10/17/2024 9:35 AM [facility] MCH 30.2 26.7 - 33.6 pg 10/17/2024 9:35 AM [facility] MCHC 33.7 31.7 - 36.3 g/dL 10/17/2024 9:35 AM [facility] RDW-CV 13.1 11.3 - 14.8 % 10/17/2024 9:35 AM [facility] Platelet Count 440(H) 150 - 420 x10E9/L 10/17/2024 9:35 AM [facility] MPV 8.9 7.8 - 11.4 fL 10/17/2024 9:35 AM [facility] Preliminary Absolute Neutrophil 8.74(H) 1.60 - 7.50 x10E9/L 10/17/2024 9:35 AM [facility] Neutrophil % 71.8 41.0 - 74.0 % 10/17/2024 9:35 AM [facility] Lymphocyte % 17.1 17.0 - 47.0 % 10/17/2024 9:35 AM [facility] Monocyte % 8.4 3.0 - 11.0 % 10/17/2024 9:35 AM [facility] Eosinophil % 0.8 0.0 - 7.0 % 10/17/2024 9:35 AM [facility] Basophil % 0.7 0.0 - 1.6 % 10/17/2024 9:35 AM [facility] Immature Granulocytes % 1.2(H) 0.0 - 1.0 % 10/17/2024 9:35 AM [facility] Neutrophil Absolute 8.74(H) 1.60 - 7.50 x10E9/L 10/17/2024 9:35 AM [facility] Lymphocyte Absolute 2.08 1.00 - 4.40 x10E9/L 10/17/2024 9:35 AM [facility] Monocyte Absolute 1.02(H) 0.15 - 1.00 x10E9/L 10/17/2024 9:35 AM [facility] Eosinophil Absolute 0.10 0.00 - 0.60 x10E9/L 10/17/2024 9:35 AM [facility] Basophil Absolute 0.08 0.00 - 0.13 x10E9/L 10/17/2024 9:35 AM [facility] Blood BLOOD SPECIMEN / Unknown Venipuncture / Unknown 10/17/2024 9:09 AM EDI PROGRAMMER 10/17/2024 9:20 AM [facility] Mattie Tong MD LAB - HEMATOLOGY ORD ERABLES [facility] [address] [place] [address], [facility] [phone] * (ABNORMAL) COMPREHENSIVE METABOLIC PANEL (10/17/2024 9:09 AM [facility]) Only the most recent of3 resultswithin the time period is included. BUN 19 7 - 26 mg/dL 10/17/2024 9:59 AM [facility] Creatinine 1.39(H) 0.71 - 1.16 mg/dL 10/17/2024 9:59 AM [facility] Sodium 132(L) 136 - 145 mmol/L 10/17/2024 9:59 AM [facility] Potassium 4.9(H) 3.5 - 4.5 mmol/L 10/17/2024 9:59 AM [facility] Chloride 103 98 - 107 mmol/L 10/17/2024 9:59 AM [facility] CO2 20(L) 22 - 29 mmol/L 10/17/2024 9:59 AM [facility] Glucose 146(H) 70 - 99 mg/dL 10/17/2024 9:59 AM [facility] Calcium 9.4 8.4 - 10.2 mg/dL 10/17/2024 9:59 AM [facility] Protein Total 7.9 6.0 - 8.3 g/dL 10/17/2024 9:59 AM [facility] Albumin 3.3(L) 3.4 - 5.0 g/dL 10/17/2024 9:59 AM [facility] Bilirubin Total 0.6 0.2 - 1.2 mg/dL 10/17/2024 9:59 AM [facility] Alkaline Phosphatase 101 40 - 150 U/L 10/17/2024 9:59 AM [facility] ALT 18 5 - 55 U/L 10/17/2024 9:59 AM [facility] AST 15 5 - 34 U/L 10/17/2024 9:59 AM [facility] Anion Gap 9 6 - 16 10/17/2024 9:59 AM [facility] BUN/Creatinine Ratio 14 7 - 23 10/17/2024 9:59 AM [facility] Osmolality Calculated 279 275 - 295 mOsm/kg 10/17/2024 9:59 AM [facility] Albumin/Globulin Ratio 0.7(L) 1.1 - 2.3 10/17/2024 9:59 AM [facility] eGFR by CKD-EPI 55(L) >=90 mL/min/1.7 3 m2 10/17/2024 9:59 AM [facility] Blood BLOOD SPECIMEN / Unknown Venipuncture / Unknown 10/17/2024 9:09 AM EDI PROGRAMMER 10/17/2024 9:20 AM [facility] Mattie Tong MD LAB - CHEMISTRY TOM JACOBSON [facility] Organization Address City/State/ZIP Co de Phone Number [facility] [address] [place] [id number], [facility] [phone] * PHOSPHORUS BLOOD (10/17/2024 9:09 AM [facility]) Only the most recent of2 resultswithin the time period is included. Phosphorus 4.1 2.8 - 5.1 mg/dL 10/17/2024 9:59 AM [facility] Blood BLOOD SPECIMEN / Unknown Venipuncture / Unknown 10/17/2024 9:09 AM EDI PROGRAMMER 10/17/2024 9:20 AM EDI PROGRAMMER Mattie Tong MD LAB - CHEMISTRY TOM JACOBSON [address] [address], [place] [phone] * MAGNESIUM BLOOD (10/17/2024 9:09 AM EDI PROGRAMMER) Magnesium 1.6 1.6 - 2.6 mg/dL 10/17/2024 9:59 AM [facility] Blood BLOOD SPECIMEN / Unknown Venipuncture / Unknown 10/17/2024 9:09 AM EDI PROGRAMMER 10/17/2024 9:20 AM EDI PROGRAMMER Mattie Tong MD LAB - CHEMISTRY TOM JACOBSON [address] [address], [place] [phone] * IRON + TRANSFERRIN PANEL (10/17/2024 9:09 AM EDI PROGRAMMER) Iron 58 50 - 175 ug/dL 10/17/2024 10:35 AM [facility] Transferrin 212 174 - 382 mg/dL 10/17/2024 10:35 AM [facility] Transferrin Saturation % 22 16 - 50 % 10/17/2024 10:35 AM [facility] TIBC Calculated 265 240 - 450 ug/dL 10/17/2024 10:35 AM [facility] Blood BLOOD SPECIMEN / Unknown Venipuncture / Unknown 10/17/2024 9:09 AM EDI PROGRAMMER 10/17/2024 9:16 AM EDI PROGRAMMER Elizabeth HAGAN LAB - CHEMISTRY ORD HOMER [address] [address], [place] [phone] * FERRITIN (10/17/2024 9:09 AM EDI PROGRAMMER) Ferritin 98 22 - 275 ng/mL 10/17/2024 10:35 AM [facility] Blood BLOOD SPECIMEN / Unknown Venipuncture / Unknown 10/17/2024 9:09 AM EDI PROGRAMMER 10/17/2024 9:16 AM EDI PROGRAMMER Elizabeth Newby PROCESS SAFETY SPECIALIST-INDUSTRIAL SERVICES WORKER LAB - CHEMISTRY ORD ERABLES [facility] [address] [place] [address], [facility] [phone] * (ABNORMAL) PT-INR [facility] (09/28/2024 10:46 AM EDI PROGRAMMER) Only the most recent of3 resultswithin the time period is included. Pathologist [facility] PT 14.9(H) 12.1 - 14.8 Seconds 09/28/2024 11:19 AM [facility] INR 1.2 See Comment 09/28/2024 11:19 AM [facility] Comment:The suggested therap eutic range for standard coumadin (warfarin) therapy is an INR of 2.0-3.0. For high-risk patients (Mechanical Mitral Valve Prosthesis, etc.), the suggested prophylactic therapeutic range is an INR of 2.5-3.5. Blood BLOOD SPECIMEN / Unknown Venipuncture / Unknown 09/28/2024 10:46 AM EDI PROGRAMMER 09/28/2024 10:50 AM EDI PROGRAMMER Trang Buitrago PROCESS SAFETY SPECIALIST-INDUSTRIAL SERVICES WORKER LAB - COAGULA TION ORDERABLES [facility] [address] [place] [id number], [place] [phone] * (ABNORMAL) URINALYSIS W/MICROSCOPIC REFLEX TO CULTURE (09/28/2024 10:46 AM EDI PROGRAMMER) Color UA Straw Straw, Yellow 09/28/2024 11:02 AM [facility] Clarity UA Clear Clear 09/28/2024 11:02 AM [facility] Specific Dennard UA 1.004(L) 1.005 - 1.030 09/28/2024 11:02 AM [facility] pH UA 6.0 5.0 - 8.0 pH 09/28/2024 11:02 AM [facility] Protein UA Negative Negative 09/28/2024 11:02 AM [facility] Glucose UA Negative Negative 09/28/2024 11:02 AM [facility] Ketone UA Negative Negative 09/28/2024 11:02 AM [facility] Bilirubin UA Negative Negative 09/28/2024 11:02 AM [facility] Blood UA Negative Negative 09/28/2024 11:02 AM [facility] Nitrite UA Negative Negative 09/28/2024 11:02 AM [facility] Leukocyte Esterase Negative Negative 09/28/2024 11:02 AM [facility] Urobilinogen UA Negative Negative mg/dL 09/28/2024 11:02 AM [facility] RBC UA 0-2 None Seen, 0-2, 3-5 /HPF 09/28/2024 11:02 AM [facility] WBC UA 0-5 None Seen, 0-5 /HPF 09/28/2024 11:02 AM [facility] Squamous Epithelial Cells UA None Seen None Seen, 0-2, 3-5 /HPF 09/28/2024 11:02 AM [facility] Urine URINE SPECIMEN OBTAINED BY CLEAN CATCH PROCEDURE / Unknown Collection / Unknown 09/28/2024 10:46 AM EDI PROGRAMMER 09/28/2024 10:50 AM [facility] - 09/28/2024 11:02 AM EDI PROGRAMMER Culture Not Indicated Trang Buitrago PROCESS SAFETY SPECIALIST-INDUSTRIAL SERVICES WORKER LAB - URINALY SIS ORDERABLES [facility] [address] [place] [phone], [facility] [phone] * IR Gilberot Cath Insert (09/21/2024 8:57 AM EDI PROGRAMMER) Anatomical Region Laterality Modality Chest X-Ray Angiograph y 09/21/2024 2:46 PM EDI PROGRAMMER Impressions 09/21/2024 5:28 PM EDI PROGRAMMER Impression: Successful placement of a single lumen 8 Macedonian x 26 cm chest power port via the right internal jugular vein under ultrasound and fluoroscopic guidance, as described above. Note: Keep the dressing clean and dry for 5 days. Recommend port access after 5 days to minimize infection and allow better healing. I, Dr. Lawanda Vergara, was available to supervise the entire procedure. Moderate sedation on this patient was ordered by me, administered intravenously in my presence, and monitored by the procedure nurse as an independent trained observer who was present throughout the procedure. The following parameters were monitored: oxygen saturation, heart rate, blood pressure, and response to care. Intra-service sedation start time was 08:15 and end time was 08:45 during which I was present. Total physician intra-service sedation time was 30 minutes. For details on pre moderate sedation and post moderate sedation patient evaluation, please review the evaluation forms in [facility]. For details on monitored clinical parameters during the intra-service sedation time, please review the procedure nurse documentation in [facility]. > Dictated by Titi Moulton (Magnetic Healer) 09/21/2024 2:46 PM Lawanda Weber MD have personally reviewed and interpreted this examination/study. > Interpreting Provider: Lawanda Vergara MD on 09/21/2024 5:28 PM Narrative 09/21/2024 5:28 PM EDI PROGRAMMER PROCEDURE: IR GILBERTO CATH INSERT DATE/TIME OF EXAM: 09/21/2024 9:02 AM CLINICAL INFORMATION: History: This is a 69-year-old male with a new diagnosis of metastatic colon cancer who presents for chest port placement for the administration of chemotherapy Operators: [employer] Anesthesia: 1.Local anesthesia - 20 mL of 1% Lidocaine with epinephrine 2.Intravenous Anxiolysis- Versed 2 mg and Fentanyl 100 mcg Procedure: 1.Ultrasound-guided access of the right internal jugular vein. 2.Creation of subcutaneous pocket and subcutaneous tunnel on the right chest. 3.Fluoroscopy-guided placement of single lumen 8 Macedonian x 26 cm chest power port via the right internal jugular vein. Fluoroscopic time: 0.8 minutes Procedure details: The procedure, risks, and possible complications were explained to the patient in detail and informed consent was obtained. The patient was placed supine on the angiography table. The right neck and upper chest were prepped and draped in the usual sterile manner. A oyster culler film of chest was obtained, which was unremarkable. Limited ultrasound of the right lower neck demonstrated a patent and compressible internal jugular vein. A lim scale image was documented. After instillation of lidocaine , a small incision was made in the right lower neck. Under real time ultrasound guidance, using a micropuncture needle, the right internal jugular vein was accessed. The needle entry was documented. Following a series of exchanges, a 0.035 wire was advanced through the right atrium into the inferior vena cava. Following administration of lidocaine , a skin incision was made over the right upper chest and a subcutaneous pocket was created using blunt and sharp dissection techniques. The port was connected to the catheter and placed in the pocket. Using a tunneling device, the catheter was tunneled from the pocket to the venotomy site in the right neck, after administering lidocaine along the tunnel. The catheter was cut to the appropriate length. A peel-away sheath and dilator combination was advanced over the guidewire into the right atrium under fluoroscopic guidance. The guidewire and dilator were removed, and the catheter was advanced through the peel-away sheath into the right atrium. The peel-away was then removed. The port was accessed, aspirated, and flushed easily. An appropriate amount of heparin (500 units/mL) was placed in the port as per protocol. The pocket was closed using 3.0 and 4.0 vicryl sutures. The neck incision was closed with dermabond. A sterile dressing was applied. Final imaging revealed the port in the right chest with tip of the catheter in the right atrium in good position with no kink along the course of the catheter. The patient tolerated the procedure well and was transferred to the holding area in stable condition. There were no immediate complications associated with the procedure. Procedure Note Lawanda Vergara DO - 09/21/2024 PROCEDURE: IR GILBERTO CATH INSERT DATE/TIME OF EXAM: 09/21/2024 9:02 AM CLINICAL INFORMATION: History: This is a 69-year-old male witha new diagnosis of metastatic colon cancer who presents for chest port placement for the administration of chemotherapy Operators: [employer] Anesthesia: 1.Local anesthesia - 20 mL of 1% Lidocaine with epinephrine 2.Intravenous Anxiolysis- Versed 2 mg and Fentanyl 100 mcg Procedure: 1.Ultrasound-guided access of the right internal jugular vein. 2.Creation of subcutaneous pocket and subcutaneous tunnel on the right chest. 3.Fluoroscopy-guided placement of single lumen 8 Macedonian x 26 cm chestpower port via the right internal jugular vein. Fluoroscopic time: 0.8 minutes Procedure details: The procedure, risks, and possible complications were explained to the patient in detail and informed consent was obtained. The patient wasplaced supine on the angiography table. The right neck and upper chest were prepped and draped in the usual sterile manner. A oyster culler film of chestwas obtained, which was unremarkable. Limited ultrasound of the right lower neck demonstrated a patent and compressible internal jugular vein. A lim scale image was documented. After instillation of lidocaine , a small incision was made in the right lower neck. Under real time ultrasound guidance, using a micropuncture needle, the right internal jugular vein was accessed. The needle entrywas documented. Following a series of exchanges, a 0.035 wire was advanced through the right atrium into the inferior vena cava. Following administration of lidocaine , a skin incision was made overthe right upper chest and a subcutaneous pocket was created using blunt and sharp dissection techniques. The port was connected to the catheter and placed in the pocket. Using a tunneling device, the catheter wastunneled from the pocket to the venotomy site in the right neck, afteradministering lidocaine along the tunnel. The catheter was cut to the appropriatelength. A peel-away sheath and dilator combination was advanced over theguidewire into the right atrium under fluoroscopic guidance. The guidewire and dilator were removed, and the catheter was advanced through thepeel-away sheath into the right atrium. The peel-away was then removed. The port was accessed, aspirated, and flushed easily. An appropriateamount of heparin (500 units/mL) was placed in the port as per protocol. The pocket was closed using 3.0 and 4.0 vicryl sutures. The neck incisionwas closed with dermabond. A sterile dressing was applied. Final imaging revealed the port in the right chest with tip of the catheter in theright atrium in good position with no kink along the course of the catheter. The patient tolerated the procedure well and [facility]. There were no immediate complicationsassociated with the procedure. Impression: Successful placement of a single lumen 8 Macedonian x 26 cmchest power port via the right internal jugular vein under ultrasound and fluoroscopic guidance, as described above. Note: Keep the dressing clean and dry for 5 days. Recommend port access after 5 days to minimize infection and allow better healing. I, Dr. Lawanda Vergara, was available to supervise the entire procedure. Moderate sedation on this patient was ordered by me, administered intravenously in my presence, and monitored by the procedure nurse as an independent trained observer who was present throughout the procedure.The following parameters were monitored: oxygen saturation, heart rate,blood pressure, and response to care. Intra-service sedation start time was08:15 and end time was 08:45 during which I was present. Total physician intra-service sedation time was 30 minutes. For details on pre moderate sedation and post moderate sedation patient evaluation, please reviewthe evaluation forms in [facility]. For details on monitored clinical parameters during the intra-service sedation time, please review the procedurenurse documentation in [facility]. > Dictated by Titi Moulton (Magnetic Healer) 09/21/2024 2:46 PM Lawanda Weber MD have personally reviewed and interpreted this examination/study. > Interpreting Provider: Lawanda Vergara MD on 09/21/2024 5:28 PM Víctor Hooper MD IR ORDERABLES * (ABNORMAL) GLUCOSE - POINT OF CARE (09/21/2024 6:48 AM EDI PROGRAMMER) Only the most recent of15 resultswithin the time period is included. Glucose WB/POC 138(H) 70 - 99 mg/dL 09/21/2024 6:48 AM EDI PROGRAMMER [facility] Specimen Type Venous 09/21/2024 6:48 AM EDI PROGRAMMER [facility] Blood BLOOD SPECIMEN / Unknown 09/21/2024 6:48 AM EDI PROGRAMMER 09/21/2024 6:48 AM EDI PROGRAMMER Víctor Hooper MD LAB - POINT OF CARE ORDERABLES [facility] [address] [place] [address], [facility] [phone] * (ABNORMAL) PTT [facility] (09/07/2024 12:23 AM EDI PROGRAMMER) Only the most recent of3 resultswithin the time period is included. APTT 68.3(H) 23.0 - 38.4 Seconds 09/07/2024 1:27 AM [facility] Comment:Suggested therapeuti c range for full dose I.V. unfractionated heparin therapy for venous thromboembolism is 71 to 109 seconds. Blood BLOOD SPECIMEN / Unknown Lab Venipuncture / Unknown 09/07/2024 12:23 AM EDI PROGRAMMER 09/07/2024 1:04 AM EDI PROGRAMMER Hilton Jackson III, MD LAB - COAGULATI ON ORDERABLES [address] [address], [facility] [phone] * (ABNORMAL) CBC W/O DIFFERENTIAL (09/07/2024 12:23 AM EDI PROGRAMMER) Only the most recent of3 resultswithin the time period is included. Pathologist [facility] WBC 6.3 4.0 - 10.7 x10E9/L 09/07/2024 1:12 AM [facility] RBC Count 3.46(L) 4.30 - 5.80 x10E12/L 09/07/2024 1:12 AM [facility] Hemoglobin 10.7(L) 13.3 - 17.5 g/dL 09/07/2024 1:12 AM [facility] Hematocrit 32.1(L) 38.7 - 51.1 % 09/07/2024 1:12 AM [facility] MCV 92.8 80.0 - 98.0 fL 09/07/2024 1:12 AM [facility] MCH 30.9 26.7 - 33.6 pg 09/07/2024 1:12 AM [facility] MCHC 33.3 31.7 - 36.3 g/dL 09/07/2024 1:12 AM [facility] RDW-CV 12.5 11.3 - 14.8 % 09/07/2024 1:12 AM [facility] Platelet Count 339 150 - 420 x10E9/L 09/07/2024 1:12 AM [facility] MPV 9.9 7.8 - 11.4 fL 09/07/2024 1:12 AM [facility] Blood BLOOD SPECIMEN / Unknown Lab Venipuncture / Unknown 09/07/2024 12:23 AM EDI PROGRAMMER 09/07/2024 1:07 AM EDI PROGRAMMER Hilton Jackson III, MD LAB - HEMATOLOG Y ORDERABLES [facility] [address] [place] [address], [facility] [phone] * (ABNORMAL) BASIC METABOLIC PANEL (CALCIUM TOTAL) (09/06/2024 12:47 AM [facility]) Only the most recent of3 resultswithin the time period is included. BUN 9 7 - 26 mg/dL 09/06/2024 2:57 AM [facility] Creatinine 0.98 0.71 - 1.16 mg/dL 09/06/2024 2:57 AM [facility] Sodium 133(L) 136 - 145 mmol/L 09/06/2024 2:57 AM [facility] Potassium 4.1 3.5 - 4.5 mmol/L 09/06/2024 2:57 AM [facility] Chloride 105 98 - 107 mmol/L 09/06/2024 2:57 AM [facility] CO2 19(L) 22 - 29 mmol/L 09/06/2024 2:57 AM [facility] Glucose 140(H) 70 - 99 mg/dL 09/06/2024 2:57 AM [facility] Calcium 8.5 8.4 - 10.2 mg/dL 09/06/2024 2:57 AM [facility] Anion Gap 9 6 - 16 09/06/2024 2:57 AM [facility] BUN/Creatinine Ratio 9 7 - 23 09/06/2024 2:57 AM [facility] Osmolality Calculated 277 275 - 295 mOsm/kg 09/06/2024 2:57 AM [facility] eGFR by CKD-EPI 83(L) >=90 mL/min/1.7 3 m2 09/06/2024 2:57 AM EDI PROGRAMMER [facility] Blood BLOOD SPECIMEN / Unknown Lab Venipuncture / Unknown 09/06/2024 12:47 AM EDI PROGRAMMER 09/06/2024 2:25 AM EDI PROGRAMMER Hilton Jackson III, MD LAB - CHEMISTRY ORDERABLES [facility] [address] [place] [address], [facility] [phone] * EGD (09/04/2024 9:26 AM EDI PROGRAMMER) Report Endoscopy POC Endoscopy Department Report _ Patient Name: Edwin Rhoades Procedure Date: 09/04/2024 9:26 AM Date of : 1955 Classification: Inpatient Gender: Male Ethnicity: Not or Race: White _ Providers: Ian Perez MD: Procedure: Upper GI endoscopy Indications: Melena Medications: Propofol per Anesthesia Description of Procedure: After obtaining informed consent, the endoscope was passed under direct vision. Throughout the procedure, the patient's blood pressure, pulse, and oxygen saturations were monitored continuously. The Endoscope was introduced through the mouth, and advanced to the second part of duodenum. The upper GI endoscopy was accomplished without difficulty. The patient tolerated the procedure well. Findings: Small (< 5 mm) varices were found in the lower third of the esophagus. They were 3 mm in largest diameter. There is no endoscopic evidence of bleeding, areas of erosion, esophagitis, stenosis, stricture or ulcerations in the entire esophagus. A 2 cm hiatal hernia was present. Few non-bleeding cratered gastric ulcers with a clean ulcer base (Chilango Class III) were found in the gastric body, in the gastric antrum and at the pylorus. The largest lesion was 6 mm in largest dimension. Diffuse mild inflammation characterized by congestion (edema), erythema, friability and mucus was found in the gastric body. The examined duodenum was normal. Estimated Blood Loss: Estimated blood loss: none. Complications: No immediate complications. Impression: - Small (< 5 mm) esophageal varices. - 2 cm hiatal hernia. - Non-bleeding gastric ulcers with a clean ulcer base (Chilango Class III). - Gastritis. - Normal examined duodenum. - No specimens collected. Recommendation: - Resume previous diet. - PO PPI bid for 8 weeks - Consider repeat EGD in 8- 12 weeks - Likely bleeding adenocarcinoma seen in the last colonoscopy. Attending Participation: I personally performed the entire procedure. Procedure Code(s): --- Professional --- 95817, Esophagogastroduod enoscopy, flexible, transoral; diagnostic, including collection of specimen(s) by brushing or washing, when performed (separate procedure) Diagnosis Code(s): --- Professional --- I85.00, Esophageal varices without bleeding K44.9, Diaphragmatic hernia without obstruction or gangrene K25.9, Gastric ulcer, unspecified as acute or chronic, without hemorrhage or perforation K29.70, Gastritis, unspecified, without bleeding K92.1, Melena (includes Hematochezia) CPT copyright 2021 [employer]. All rights reserved. The codes documented in this report are preliminary and upon remote coders review may be revised to meet current compliance requirements. Ian Ellsworth, 09/04/2024 10:16:58 AM Note Initiated On: 09/04/2024 9:26 AM Number of Addenda: [phone] [place] [address] PROVATION 09/04/2024 9:26 AM EDI PROGRAMMER Moncho Zacarias MD GI PROCEDURE ORDERAB LES [facility] PROVATION * BLOOD TYPE VERIFICATION (09/03/2024 9:47 AM EDI PROGRAMMER) ABO Rh A POS 09/03/2024 10:35 AM EDI PROGRAMMER [facility] Blood Bank BLOOD SPECIMEN / Unknown Lab Venipuncture / Unknown 09/03/2024 9:47 AM EDI PROGRAMMER 09/03/2024 10:08 AM EDI PROGRAMMER Ruth Chavez PROCESS SAFETY SPECIALIST-INDUSTRIAL SERVICES WORKER LAB - BLOOD BANK ORDERABLES Performing Organization Address City/[facility]/ZIP Co de Phone Number [facility] [address] [place] [address], [facility] [phone] * CT Abdomen Pelvis W Contrast (09/02/2024 10:39 PM EDI PROGRAMMER) Anatomical Region Laterality Modality Abdomen, Pelvis Computed Tomogra phy 09/02/2024 11:2 1 PM EDI PROGRAMMER Impressions 09/03/2024 10:26 AM EDI PROGRAMMER Impression: 1.Findings consistent with hepatic cirrhosis with small to moderate volume ascites in the abdomen and pelvis. 2.An area of luminal narrowing and wall thickening of the proximal ascending colon which may be related to the patient's history of colon cancer or reflect nondistention and peristalsis. 3.Redemonstration of areas of soft tissue nodularity in the abdominal fat which could represent peritoneal carcinomatosis. 4.Small hepatic lesions are too small to characterize and indeterminate. 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 > Dictated by Deni Franklin MD (residential real estate appraiser). I, Bc Fortune MD have personally reviewed and interpreted this examination/study. > Interpreting Provider: Bc Fortune MD on 09/03/2024 10:26 AM Narrative 09/03/2024 10:26 AM EDI PROGRAMMER PROCEDURE: CT ABDOMEN PELVIS W CONTRAST, DATE/TIME OF EXAM: 09/02/2024 10:40 PM, LOCATION [facility] INDICATION: K92.1: Melena C18.9: Malignant neoplasm of colon, unspecified part of colon (HCC) R10.84: Abdominal pain, generalized ADDITIONAL CLINICAL INFORMATION: Ordering Provider Reason For Exam: melena, recently diagnosed colon cancer, worsening abdominal pain COMPARISON: CT 08/20/2024 TECHNIQUE: CT of the abdomen and pelvis was performed following the uneventful administration of 100 mL of Isovue 370 intravenous contrast according to standard protocol. Findings: Lower Chest: Mild bilateral dependent atelectasis is present in the visualized lung bases. Liver: The liver has a nodular surface, consistent with hepatic cirrhosis.There are subcentimeter hypodensities in hepatic segment 4A as well as the caudate lobe which is too small to characterize, similar to prior. Gallbladder and Bile Ducts: The gallbladder is absent. Spleen: Normal. Pancreas: Normal. Adrenals: Normal. Kidneys: Multiple subcentimeter hypoattenuating lesions in both kidneys are too small to characterize, but likely represent cysts. Gastrointestinal: Small hyperdensities noted in the cecum and ascending colon which are nonspecific but may represent residual contrast or ingested material. No dilated bowel to suggest obstruction. Colonic diverticulosis. Evaluation of the bowel for wall thickening and adjacent inflammatory changes is limited in the presence of ascites. There is an area of luminal narrowing and wall thickening of the proximal ascending colon which may be related to the patient's history of colon cancer or reflect nondistention and peristalsis (series 5 image 192). Mesentery/Peritoneum/Retroperitoneum: There is small to moderate volume ascites in the abdomen and pelvis. There are again areas of soft tissue nodularity in the abdominal fat which may represent peritoneal carcinomatosis. Bladder: Normal. Reproductive Organs: The prostate is normal. Vasculature: Atherosclerotic calcification of the aorta and its branch vessels. 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 Bones: Bone windows demonstrate no suspicious lytic or blastic lesions. The visible osseous structures are intact. Soft tissues: There is a right fat-containing inguinal hernia. Procedure Note Bc Fortune MD - 09/03/2024 PROCEDURE: CT ABDOMEN PELVIS W CONTRAST, DATE/TIME OF EXAM: 09/02/2024 10:40 PM, LOCATION [facility] INDICATION: K92.1: Melena C18.9: Malignant neoplasm of colon, unspecified part of colon (HCC) R10.84: Abdominal pain, generalized ADDITIONAL CLINICAL INFORMATION: Ordering Provider Reason For Exam: melena, recently diagnosed colon cancer, worsening abdominal pain COMPARISON: CT 08/20/2024 TECHNIQUE: CT of the abdomen and pelvis was performed following the uneventful administration of 100 mL of Isovue 370 intravenous contrast according to standard protocol. Findings: Lower Chest: Mild bilateral dependent atelectasis is present in the visualized lung bases. Liver: The liver has a nodular surface, consistent with hepatic cirrhosis.There are subcentimeter hypodensities in hepatic segment 4A as well as the caudate lobe which is too small to characterize, similar to prior. Gallbladder and Bile Ducts: The gallbladder is absent. Spleen: Normal. Pancreas: Normal. Adrenals: Normal. Kidneys: Multiple subcentimeter hypoattenuating lesions in both kidneys are too small to characterize, but likely represent cysts. Gastrointestinal: Small hyperdensities noted in the cecum and ascending colon which are nonspecific but may represent residual contrast or ingested material. No dilated bowel to suggest obstruction. Colonic diverticulosis. Evaluationof the bowel for wall thickening and adjacent inflammatory changes islimited in the presence of ascites. There is an area of luminal narrowing andwall thickening of the proximal ascending colon which may be related to the patient's history of colon cancer or reflect nondistention andperistalsis (series 5 image 192). Mesentery/Peritoneum/Retroperitoneum: There is small to moderate volume ascites in the abdomen and pelvis.There are again areas of soft tissue nodularity in the abdominal fat which may represent peritoneal carcinomatosis. Bladder: Normal. Reproductive Organs: The prostate is normal. Vasculature: Atherosclerotic calcification of the aorta and its branch vessels. 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 Bones: Bone windows demonstrate no suspicious lytic or blastic lesions. The visible osseous structures are intact. Soft tissues: There is a right fat-containing inguinal hernia. Impression: 1.Findings consistent with hepatic cirrhosis with small to moderatevolume ascites in the abdomen and pelvis. 2.An area of luminal narrowing and wall thickening of the proximal ascending colon which may be related to the patient's history of colon cancer or reflect nondistention and peristalsis. 3.Redemonstration of areas of soft tissue nodularity in the abdominalfat which could represent peritoneal carcinomatosis. 4.Small hepatic lesions are too small to characterize and indeterminate. 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 > Dictated by Deni Franklin MD (residential real estate appraiser). I, Bc Fortune MD have personally reviewed and interpreted this examination/study. > Interpreting Provider: Bc Fortune MD on 09/03/2024 10:26 AM Eh Bales MD CT ORDERABLES * TYPE + SCREEN PANEL (09/02/2024 9:38 PM EDI PROGRAMMER) Antibody Screen NEG 10:21 PM EDI PROGRAMMER [facility] ABO Rh A POS 09/02/2024 10:21 PM EDI PROGRAMMER [facility] Blood Bank BLOOD SPECIMEN / Unknown Venipuncture / Unknown 09/02/2024 9:38 PM EDI PROGRAMMER 09/02/2024 9:45 PM EDI PROGRAMMER Eh Bales MD LAB - BLOOD BANK ORD ERABLES [facility] [address] [place] [address], [facility] [phone] * Endoscopy, Colon, Diagnostic (08/23/2024 1:34 PM EDI PROGRAMMER) Report Endoscopy POC Endoscopy Department Report _ Patient Name: Edwin Rhoades Procedure Date: 08/23/2024 1:34 PM Date of : 1955 Classification: Inpatient Gender: Male Ethnicity: Unknown Race: Unknown _ Providers: Kerri Finch MD, Juan Acevedo (Fellow) Referring MD: Procedure: Colonoscopy Indications: Melena Medications: General Anesthesia Patient Profile: 68 yo M with peritoneal carcinomatosis, unknown primary, evaluation for possible colon cancer. Description of Procedure: Pre-Anesthesia Assessment: - Prior to the procedure, a History and Physical was performed, and patient medications and allergies were reviewed. The patient's tolerance of previous anesthesia was also reviewed. The risks and benefits of the procedure and the sedation options and risks were discussed with the patient. All questions were answered, and informed consent was obtained. Prior Anticoagulants: The patient has taken Lovenox (enoxaparin), last dose was 2 days prior to procedure. ASA Grade Assessment: III - A patient with severe systemic disease. After reviewing the risks and benefits, the patient was deemed in satisfactory condition to undergo the procedure. After I obtained informed consent, the scope was passed under direct vision. Throughout the procedure, the patient's blood pressure, pulse, and oxygen saturations were monitored continuously. The PCF-H190DL was introduced through the anus and advanced to the cecum, identified by appendiceal orifice and ileocecal valve. The colonoscopy was performed without difficulty. The patient tolerated the procedure well. The quality of the bowel preparation was evaluated using the BBPS ([place] Bowel Preparation Scale) with scores of: Right Colon = 3, Transverse Colon = 3 and Left Colon = 3 (entire mucosa seen well with no residual staining, small fragments of stool or opaque liquid). The total BBPS score equals 9. The ileocecal valve, appendiceal orifice, and rectum were photographed. Findings: Hemorrhoids were found on perianal exam. An ulcerated partially obstructing large mass was found in the ascending colon. The mass was circumferential. The mass measured 2-3 cm in length. No bleeding was present. This was biopsied with a cold forceps for histology. Multiple small-mouthed diverticula were found in the sigmoid colon. Non-bleeding internal hemorrhoids were found during retroflexion. The hemorrhoids were large. Estimated Blood Loss: Estimated blood loss was minimal. Complications: No immediate complications. Impression: - Hemorrhoids found on perianal exam. 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 Biopsied. - Diverticulosis in the sigmoid colon. - Non-bleeding internal hemorrhoids. Recommendation: - Return patient [facility]. - Resume previous diet. - Continue present medications. - Await pathology results. - Consult Oncology Attending Participation: I was present and participated during the entire procedure, including non-mloina portions. Procedure Code(s): --- Professional --- 72554, Colonoscopy, flexible; with biopsy, single or multiple Diagnosis Code(s): --- Professional --- K64.8, Other hemorrhoids C18.2, Malignant neoplasm of ascending colon K56.690, Other partial intestinal obstruction K57.30, Diverticulosis of large intestine without perforation or abscess without bleeding CPT copyright 2021 [employer]. All rights reserved. The codes documented in this report are preliminary and upon remote coders review may be revised to meet current compliance requirements. Kerri Finch MD 08/23/2024 3:10:02 PM Note Initiated On: 08/23/2024 1:34 PM Number of Addenda: [id number] [place] [address] PROVATION 08/23/2024 1:34 PM EDI PROGRAMMER Wayne Doss MD GI PROCEDURE ORDERAB LES Performing Organization Address City/State/[facility] Co de Phone Number [facility] * (ABNORMAL) HEMOGLOBIN A1C (08/23/2024 8:38 AM EDI PROGRAMMER) Hemoglobin A1c 8.0(H) <=5.6 % 08/23/2024 12:31 PM [facility] Estimated Average Glucose 183 mg/dL 08/23/2024 12:31 PM [facility] Comment: HbA1c Interpretation: Normal : < 5.7% Pre-diabetes: 5.7-6.4% Diabetes: Equal to or greater than 6.5% Test results diagnostic of diabetes should be repeated for confirmation. Treatment target values recommended by ADA and other clinical organizations should be used to evaluate metabolic control in patients. Reference: [employer], Standards of Care in Diabetes -2020 In patients 70 years and older consider HbA1c target range of 7.0-7.5% (Reference: Panda Thompson et al. JAMDA. 2012) The [place] assay for the measurement of HbA1c is a National Glycohemoglobin Standardization Program (NGSP) certified method. Blood BLOOD SPECIMEN / Unknown Lab Venipuncture / Unknown 08/23/2024 8:38 AM EDI PROGRAMMER 08/23/2024 9:33 AM EDI PROGRAMMER Wayne Doss MD LAB - CHEMISTRY [facility]OM [facility] [address] [place] [address], [place] [phone] * HEPATITIS C AB SCREEN RFLX NAAT QUANT (08/21/2024 7:37 AM EDI PROGRAMMER) Hepatitis C Antibody Non-react ap Non-reac tive 08/21/2024 8:36 AM EDI PROGRAMMER [facility] Comment:Hepatitis C Antibody screen indicates no serologic evidence of past or current infection with Hepatitis C Virus. Patients with unexplained liver disease who are immunocompromised or suspected of having acute Hepatitis C infection may benefit from Nucleic Acid Test ([place]) for Hepatitis C Viral RNA to confirm Hepatitis C status. Blood BLOOD SPECIMEN / Unknown Lab Venipuncture / Unknown 08/21/2024 7:37 AM EDI PROGRAMMER 08/21/2024 7:47 AM EDI PROGRAMMER Leia Pelaez MD LAB - CHEMISTRY TOM [facility] Performing Organization Address City/[facility]/ZIP Co de Phone Number [facility] [address] [place] [address], [facility] [phone] from Last 3 Months or Most Recently Relevant to Health Maintenance Advance Directives * Full Code (Latest Code Status on File) Date Activated Date Inactivated Comments 09/03/2024 4:23 AM 09/07/2024 12:23 PM * Full Code Date Activated Date Inactivated Comments 08/19/2024 8:25 PM 08/25/2024 5:27 PM Care Teams Senior Relationship Manager Relationship Specialty Start Date End Date Ruth Chavez March, PROCESS SAFETY SPECIALIST-INDUSTRIAL SERVICES WORKER [address] [place] [address] PCP - General Nurse Practitioner 08/22/24 Cyndee Jacobsen DO [facility] [place] [address] Resident Hematology and Oncology 09/04/24
--- OUTSIDE RECORDS SUMMARY | 2024-11-27 18:33 | XMS_ITS | Patient Health Summary ---
Author Organization [facility] Address [address] [place] [address] Care Team Providers Care Railroad Crane Operator Name Role Phone Ruth Chavez March MANAGING MANAGER-TECHNICAL SUPPORT 1 SOFTWARE ENGINEER Primary Care Provid er Cyndee Jacobsen DO Unavailable [phone] Note from [facility],non-owned Affiliates and Associated Physician Practices is amultiple site organization consisting of ambulatory clinics and hospital sitesin [place], [place], [place] and [place]. This disclosure is being madepursuant to the Care Everywhere program and may not contain all information available regarding this patient. Last updated 18.[facility] Allergies No known active allergies Medications * Be aware that medications may not be up to date on this document. Alwaysverify current medications with the patient. * levothyroxine (Synthroid) 25 MCG tablet Take 1 (one) tablet by mouth daily before breakfast * amLODIPine (Norvasc) 10 MG tablet Take 1 (one) tablet by mouth once daily * finasteride (Proscar) 5 MG tablet Take 1 (one) tablet by mouth once daily * losartan (Cozaar) 100 MG tablet Take 1 (one) tablet by mouth once daily * diclofenac sodium EC (Voltaren) 75 MG tablet Take 1 (one) tablet by mouth 2 times daily * acetaminophen (Tylenol) 500 MG tablet(Started 08/25/2024) Take 1 (one) tablet by mouth every 6 hours as needed for Fever or Pain Maximum allowable Acetaminophen amount = 2 Grams (2000 mg) / 24 hours. 1 refill by 08/25/2025 * calcium carbonate (Tums) 500 MG chew tablet(Started 08/25/2024) Take 1 (one) tablet by mouth as needed with food for Heartburn * metFORMIN (Glucophage) 500 MG tablet(Started 08/25/2024) Take 1 (one) tablet by mouth 2 times daily with morning and evening meal * furosemide (Lasix) 40 MG tablet(Started 08/26/2024) Take 1 (one) tablet by mouth once daily 11 refills by 08/25/2025 * spironolactone (Aldactone) 100 MG tablet(Started 08/26/2024) Take 1 (one) tablet by mouth once daily 11 refills by 08/25/2025 * cyanocobalamin 100 MCG tablet(Started 08/26/2024) Take 1 (one) tablet by mouth once daily 11 refills by 08/25/2025 * folic acid (Folvite) 1 MG tablet(Started 08/26/2024) Take 1 (one) tablet by mouth once daily 11 refills by 08/25/2025 * polyethylene glycol 3350 (Miralax) 17 g packet(Started 08/26/2024) Take 17 (seventeen) g by mouth once daily 12 refills by 08/25/2025 * simethicone (Mylicon) 80 MG chew tablet(Started 08/25/2024) Take 1 (one) tablet by mouth 4 times daily as needed for Gas Pain * tamsulosin (Flomax) 0.4 MG capsule * dutasteride (Avodart) 0.5 MG capsule Take 1 (one) capsule by mouth once daily * atorvastatin (Lipitor) 20 MG tablet * pantoprazole EC (Protonix) 40 MG tablet(Started 09/07/2024) Take 1 (one) tablet by mouth 2 times daily, before breakfast and supper for 60 days * ondansetron, disintegrating, (Zofran ODT) 4 MG tablet(Started 09/19/2024) Take 1 (one) tablet by mouth every 6 hours as needed for Nausea/Vomiting Allow tablet to dissolve on the tongue 3 refills by 09/19/2025 * prochlorperazine (Compazine) 10 MG tablet(Started 09/25/2024) Take 1 (one) tablet by mouth every 6 hours as needed for Nausea/Vomiting 6 refills by 09/25/2025 * ondansetron (Zofran) 8 MG tablet(Started 09/25/2024) Take 1 (one) tablet by mouth every 8 hours as needed for Nausea/Vomiting 6 refills by 09/25/2025 * enoxaparin (Lovenox) 120 MG/0.8ML injection(Started 09/25/2024) Waste 10 mg and inject 110 (one hundred five) mg subcutaneously every 12 hours 11 refills by 09/25/2025 * senna (Senokot) 8.6 MG tablet(Started 09/26/2024) Take 1 (one) tablet by mouth nightly as needed for Constipation 2 refills by 09/26/2025 * OLANZapine (ZyPREXA) 5 MG tablet(Started 10/17/2024) Take 1 (one) tablet by mouth once daily Can take at bedtime if makes sleepy Reasons: Nausea and Vomiting caused by Cancer Chemotherapy 3 refills by 10/17/2025 * lidocaine (Lidoderm) 5 % patch(Started 10/17/2024) Apply 1 (one) patch to skin once daily Apply patch to most painful area and remove after 12 hours. May reapply a new patch 12 hours later. * oxyCODONE, immediate release, (Roxicodone) 10 MG tablet(Started 10/19/2024) Take 1 (one) tablet by mouth every 4 hours as needed for Pain * famotidine (Pepcid) 40 MG tablet(Started 10/23/2024) Take 1 (one) tablet by mouth once daily 3 refills by 10/23/2025 * sucralfate (Carafate) 1 GM tablet(Started 10/23/2024) Take 1 (one) tablet by mouth 4 times daily - before meals & nightly 3 refills by 10/23/2025 Active Problems Problem Noted Date Diagnosed Date [...] and heating? Not hard at all 09/04/2024 [facility] - Occupational Stress [...] money to buy more. Never true 09/04/20 Within the past 12 months, t he [...] any time in the past 12 m [facility], were you homeless or living in a care home (including now)? No 09/04/2024 Sex and Gender Information Value Date Recorded Sex Assigned at Not on file Gender Identity Not on file Sexual Orientation Not on file Last Filed Vital Signs Vital Sign Reading Time Taken Comments Blood Pressure 110/71 10/17/2024 9:28 AM ECHO VASCULAR TECHNOLOGIST Pulse 84 10/17/2024 9:28 AM ECHO VASCULAR TECHNOLOGIST Temperature 36.7 C (98 F) 10/17/2024 9:28 AM ECHO VASCULAR TECHNOLOGIST Respiratory Rate 20 10/17/2024 9:28 AM ECHO VASCULAR TECHNOLOGIST Oxygen Saturation 99% 10/17/2024 9:28 AM ECHO VASCULAR TECHNOLOGIST Inhaled Oxygen Concentration - - Weight 91.4 kg (201 lb 8 oz) 10/17/2024 9:28 AM ECHO VASCULAR TECHNOLOGIST Height 160 cm (5' 2.99 ) 10/17/2024 9:28 AM ECHO VASCULAR TECHNOLOGIST Body Mass Index 35.7 10/17/2024 9:28 AM ECHO VASCULAR TECHNOLOGIST Medical Devices Implanted Type Area Grade School Teacher Device Identifier Shelf Expiration Date Model / Serial / Lot Port Implinfn Powerport Clrvu Argd La Implanted:Qty: 1 on 09/21/2024 at [facility] 01/08/2026 [id number] / / [id number] Procedures * MAGNESIUM BLOOD(Performed 10/17/2024) * PHOSPHORUS BLOOD(Performed 10/17/2024) * CBC W AUTO DIFFERENTIAL(Performed 10/17/2024) * COMPREHENSIVE METABOLIC PANEL(Performed 10/17/2024) * IRON + TRANSFERRIN PANEL(Performed 10/17/2024) Performed for Anemia, unspecified type * FERRITIN(Performed 10/17/2024) Performed for Anemia, unspecified type * PT-INR [facility](Performed 09/28/2024) * COMPREHENSIVE METABOLIC PANEL(Performed 09/28/2024) * CBC W AUTO DIFFERENTIAL(Performed 09/28/2024) * URINALYSIS W/MICROSCOPIC REFLEX TO CULTURE(Performed 09/28/2024) * IR GILBERTO CATH INSERT(Performed 09/21/2024) Performed for Peritoneal carcinomatosis (HCC), Malignant neoplasm of colon, unspecified part of colon (HCC) * GLUCOSE - POINT OF CARE(Performed 09/21/2024) * PT-INR [facility](Performed 09/07/2024) * PTT [facility](Performed 09/07/2024) Performed for Ascites due to alcoholic cirrhosis (HCC) * CBC W/O DIFFERENTIAL(Performed 09/07/2024) * PTT [facility](Performed 09/06/2024) 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) * GLUCOSE - POINT OF CARE(Performed 09/06/2024) * PTT [facility](Performed 09/06/2024) * GLUCOSE - POINT OF CARE(Performed 09/06/2024) * BASIC METABOLIC PANEL (CALCIUM TOTAL)(Performed 09/06/2024) * GLUCOSE - POINT OF CARE(Performed 09/05/2024) * GLUCOSE - POINT OF CARE(Performed 09/05/2024) * GLUCOSE - POINT OF CARE(Performed 09/05/2024) * GLUCOSE - POINT OF CARE(Performed 09/05/2024) * CBC W/O DIFFERENTIAL(Performed 09/05/2024) * BASIC METABOLIC PANEL (CALCIUM TOTAL)(Performed 09/05/2024) * GLUCOSE - POINT OF CARE(Performed 09/05/2024) * GLUCOSE - POINT OF CARE(Performed 09/04/2024) * GLUCOSE - POINT OF CARE(Performed 09/04/2024) * NC ED EGD FLEX TRANSORAL DX(Performed 09/04/2024) Performed for Melena * EGD(Performed 09/04/2024) * GLUCOSE - POINT OF CARE(Performed 09/04/2024) * GLUCOSE - POINT OF CARE(Performed 09/04/2024) * BASIC METABOLIC PANEL (CALCIUM TOTAL)(Performed 09/04/2024) Performed for Melena * CBC W/O DIFFERENTIAL(Performed 09/04/2024) Performed for Melena * PHOSPHORUS BLOOD(Performed 09/04/2024) Performed for Melena, Malignant neoplasm of colon, unspecified part of colon (HCC), Abdominal pain,generalized * GLUCOSE - POINT OF CARE(Performed 09/04/2024) * GLUCOSE - POINT OF CARE(Performed 09/03/2024) * GLUCOSE - POINT OF CARE(Performed 09/03/2024) * BLOOD TYPE VERIFICATION(Performed 09/03/2024) * CT ABDOMEN PELVIS W CONTRAST(Performed 09/02/2024) Performed for Melena, Malignant neoplasm of colon, unspecified part of colon (HCC), Abdominal pain,generalized * TYPE + SCREEN PANEL(Performed 09/02/2024) * PT-INR [facility](Performed 09/02/2024) * COMPREHENSIVE METABOLIC PANEL(Performed 09/02/2024) * CBC W AUTO DIFFERENTIAL(Performed 09/02/2024) * GLUCOSE - POINT OF CARE(Performed 08/25/2024) * PTT [facility](Performed 08/25/2024) * GLUCOSE - POINT OF CARE(Performed 08/25/2024) * CBC W/O DIFFERENTIAL(Performed 08/25/2024) * PHOSPHORUS BLOOD(Performed 08/25/2024) * MAGNESIUM BLOOD(Performed 08/25/2024) * COMPREHENSIVE METABOLIC PANEL(Performed 08/25/2024) * PTT [facility](Performed 08/25/2024) * GLUCOSE - POINT OF CARE(Performed 08/24/2024) * PTT [facility](Performed 08/24/2024) * GLUCOSE - POINT OF CARE(Performed 08/24/2024) * PT EVAL AND TREAT(Performed 08/24/2024) * OT EVAL AND TREAT(Performed 08/24/2024) * GLUCOSE - POINT OF CARE(Performed 08/24/2024) * TEMPUS XT(Performed 08/24/2024) Performed for Peritoneal carcinomatosis (HCC), Malignant neoplasm of colon, unspecified part of colon (HCC) * CBC W/O DIFFERENTIAL(Performed 08/24/2024) * PHOSPHORUS BLOOD(Performed 08/24/2024) * MAGNESIUM BLOOD(Performed 08/24/2024) * COMPREHENSIVE METABOLIC PANEL(Performed 08/24/2024) * GLUCOSE - POINT OF CARE(Performed 08/24/2024) * GLUCOSE - POINT OF CARE(Performed 08/23/2024) * GLUCOSE - POINT OF CARE(Performed 08/23/2024) * SLIDE PREP HISTOLOGY(Performed 08/23/2024) * PATHOLOGY TISSUE(Performed 08/23/2024) Performed for Melena * ENDOTRACHEAL TUBE NOTE(Performed 08/23/2024) * NC COLONOSCOPY, DIAGNOSTIC(Performed 08/23/2024) Performed for Melena * NC ED EGD FLEX TRANSORAL DX(Performed 08/23/2024) Performed for Melena * ENDOSCOPY, COLON, DIAGNOSTIC(Performed 08/23/2024) * EGD(Performed 08/23/2024) * GLUCOSE - POINT OF CARE(Performed 08/23/2024) * CBC W/O DIFFERENTIAL(Performed 08/23/2024) * HEMOGLOBIN A1C(Performed 08/23/2024) * PT-INR [facility](Performed 08/23/2024) * PHOSPHORUS BLOOD(Performed 08/23/2024) * MAGNESIUM BLOOD(Performed 08/23/2024) * COMPREHENSIVE METABOLIC PANEL(Performed 08/23/2024) * GLUCOSE - POINT OF CARE(Performed 08/23/2024) * GLUCOSE - POINT OF CARE(Performed 08/22/2024) * GLUCOSE - POINT OF CARE(Performed 08/22/2024) * CBC W/O DIFFERENTIAL(Performed 08/22/2024) * GLUCOSE - POINT OF CARE(Performed 08/22/2024) * CBC W/O DIFFERENTIAL(Performed 08/22/2024) * CANCER ANTIGEN (CA)125 BLOOD(Performed 08/22/2024) * PHOSPHORUS BLOOD(Performed 08/22/2024) * MAGNESIUM BLOOD(Performed 08/22/2024) * COMPREHENSIVE METABOLIC PANEL(Performed 08/22/2024) * GLUCOSE - POINT OF CARE(Performed 08/22/2024) * GLUCOSE - POINT OF CARE(Performed 08/21/2024) * GLUCOSE - POINT OF CARE(Performed 08/21/2024) * CBC W/O DIFFERENTIAL(Performed 08/21/2024) * GLUCOSE - POINT OF CARE(Performed 08/21/2024) * HEPATITIS B PANEL(Performed 08/21/2024) * HEPATITIS C AB SCREEN RFLX NAAT QUANT(Performed 08/21/2024) * CEA BLOOD(Performed 08/21/2024) * CANCER ANTIGEN (CA) 19-9(Performed 08/21/2024) * ALPHA FETOPROTEIN BLOOD TUMOR MARKER(Performed 08/21/2024) * CBC W/O DIFFERENTIAL(Performed 08/21/2024) * PHOSPHORUS BLOOD(Performed 08/21/2024) * MAGNESIUM BLOOD(Performed 08/21/2024) * COMPREHENSIVE METABOLIC PANEL(Performed 08/21/2024) * GLUCOSE - POINT OF CARE(Performed 08/21/2024) * GLUCOSE - POINT OF CARE(Performed 08/21/2024) * GLUCOSE - POINT OF CARE(Performed 08/20/2024) * GLUCOSE - POINT OF CARE(Performed 08/20/2024) * CT CHEST ABDOMEN PELVIS W CONT(Performed 08/20/2024) Performed for Peritoneal carcinomatosis (HCC) * GLUCOSE - POINT OF CARE(Performed 08/20/2024) * XR ABDOMEN KUB PORTABLE(Performed 08/20/2024) Performed for Peritoneal carcinomatosis (HCC) * GLUCOSE - POINT OF CARE(Performed 08/20/2024) * CANCER ANTIGEN (CA) 19-9(Performed 08/20/2024) * CEA BLOOD(Performed 08/20/2024) * GLUCOSE - POINT OF CARE(Performed 08/19/2024) * CULTURE BLOOD(Performed 08/19/2024) * CULTURE BLOOD(Performed 08/19/2024) * LACTIC ACID BLOOD(Performed 08/19/2024) * PT-INR [facility](Performed 08/19/2024) * COMPREHENSIVE METABOLIC PANEL(Performed 08/19/2024) * PHOSPHORUS BLOOD(Performed 08/19/2024) * MAGNESIUM BLOOD(Performed 08/19/2024) * CBC W AUTO DIFFERENTIAL(Performed 08/19/2024) Results * (ABNORMAL) CBC W AUTO DIFFERENTIAL (10/17/2024 9:09 AM ECHO VASCULAR TECHNOLOGIST) Only the most recent of4 resultswithin the time period is included. WBC 12.2(H) 4.0 - 10.7 x10E9/L 10/17/2024 9:35 AM ECHO VASCULAR TECHNOLOGIST [facility] RBC Count 3.78(L) 4.30 - 5.80 x10E12/L 10/17/2024 9:35 AM ECHO VASCULAR TECHNOLOGIST [facility] Hemoglobin 11.4(L) 13.3 - 17.5 g/dL 10/17/2024 9:35 AM [facility] Hematocrit 33.8(L) 38.7 - 51.1 % 10/17/2024 9:35 AM [facility] MCV 89.4 80.0 - 98.0 fL 10/17/2024 9:35 AM [facility] MCH 30.2 26.7 - 33.6 pg 10/17/2024 9:35 AM [facility] MCHC 33.7 31.7 - 36.3 g/dL 10/17/2024 9:35 AM [facility] RDW-CV 13.1 11.3 - 14.8 % 10/17/2024 9:35 AM [facility] Platelet Count 440(H) 150 - 420 x10E9/L 10/17/2024 9:35 AM [facility] MPV 8.9 7.8 - 11.4 fL 10/17/2024 9:35 AM [facility] Preliminary Absolute Neutrophil 8.74(H) 1.60 - 7.50 x10E9/L 10/17/2024 9:35 AM [facility] Neutrophil % 71.8 41.0 - 74.0 % 10/17/2024 9:35 AM [facility] Lymphocyte % 17.1 17.0 - 47.0 % 10/17/2024 9:35 AM [facility] Monocyte % 8.4 3.0 - 11.0 % 10/17/2024 9:35 AM [facility] Eosinophil % 0.8 0.0 - 7.0 % 10/17/2024 9:35 AM [facility] Basophil % 0.7 0.0 - 1.6 % 10/17/2024 9:35 AM [facility] Immature Granulocytes % 1.2(H) 0.0 - 1.0 % 10/17/2024 9:35 AM [facility] Neutrophil Absolute 8.74(H) 1.60 - 7.50 x10E9/L 10/17/2024 9:35 AM [facility] Lymphocyte Absolute 2.08 1.00 - 4.40 x10E9/L 10/17/2024 9:35 AM [facility] Monocyte Absolute 1.02(H) 0.15 - 1.00 x10E9/L 10/17/2024 9:35 AM [facility] Eosinophil Absolute 0.10 0.00 - 0.60 x10E9/L 10/17/2024 9:35 AM [facility] Basophil Absolute 0.08 0.00 - 0.13 x10E9/L 10/17/2024 9:35 AM [facility] Blood BLOOD SPECIMEN / Unknown Venipuncture / Unknown 10/17/2024 9:09 AM ECHO VASCULAR TECHNOLOGIST 10/17/2024 9:20 AM [facility] Mattie Tong MD LAB - HEMATOLOGY ORD ERABLES [facility] [address] [place] [address], [facility] [phone] * (ABNORMAL) COMPREHENSIVE METABOLIC PANEL (10/17/2024 9:09 AM [facility]) Only the most recent of9 resultswithin the time period is included. BUN 19 7 - 26 mg/dL 10/17/2024 9:59 AM [facility] Creatinine 1.39(H) 0.71 - 1.16 mg/dL 10/17/2024 9:59 AM [facility] Sodium 132(L) 136 - 145 mmol/L 10/17/2024 9:59 AM [facility] Potassium 4.9(H) 3.5 - 4.5 mmol/L 10/17/2024 9:59 AM [facility] Chloride 103 98 - 107 mmol/L 10/17/2024 9:59 AM [facility] CO2 20(L) 22 - 29 mmol/L 10/17/2024 9:59 AM [facility] Glucose 146(H) 70 - 99 mg/dL 10/17/2024 9:59 AM [facility] Calcium 9.4 8.4 - 10.2 mg/dL 10/17/2024 9:59 AM [facility] Protein Total 7.9 6.0 - 8.3 g/dL 10/17/2024 9:59 AM [facility] Albumin 3.3(L) 3.4 - 5.0 g/dL 10/17/2024 9:59 AM [facility] Bilirubin Total 0.6 0.2 - 1.2 mg/dL 10/17/2024 9:59 AM [facility] Alkaline Phosphatase 101 40 - 150 U/L 10/17/2024 9:59 AM [facility] ALT 18 5 - 55 U/L 10/17/2024 9:59 AM [facility] AST 15 5 - 34 U/L 10/17/2024 9:59 AM [facility] Anion Gap 9 6 - 16 10/17/2024 9:59 AM [facility] BUN/Creatinine Ratio 14 7 - 23 10/17/2024 9:59 AM [facility] Osmolality Calculated 279 275 - 295 mOsm/kg 10/17/2024 9:59 AM [facility] Albumin/Globulin Ratio 0.7(L) 1.1 - 2.3 10/17/2024 9:59 AM [facility] eGFR by CKD-EPI 55(L) >=90 mL/min/1.7 3 m2 10/17/2024 9:59 AM [facility] Blood BLOOD SPECIMEN / Unknown Venipuncture / Unknown 10/17/2024 9:09 AM ECHO VASCULAR TECHNOLOGIST 10/17/2024 9:20 AM [facility] Mattie Tong MD [facility] Organization Address City/State/ZIP Co de Phone Number [address] [address], [facility] [phone] * PHOSPHORUS BLOOD (10/17/2024 9:09 AM ECHO VASCULAR TECHNOLOGIST) Only the most recent of8 resultswithin the time period is included. Phosphorus 4.1 2.8 - 5.1 mg/dL 10/17/2024 9:59 AM [facility] Blood BLOOD SPECIMEN / Unknown Venipuncture / Unknown 10/17/2024 9:09 AM ECHO VASCULAR TECHNOLOGIST 10/17/2024 9:20 AM [facility] Mattie Tong MD LAB - CHEMISTRY TOM JACOBSON [address] [address], [place] [phone] * MAGNESIUM BLOOD (10/17/2024 9:09 AM ECHO VASCULAR TECHNOLOGIST) Only the most recent of7 resultswithin the time period is included. Magnesium 1.6 1.6 - 2.6 mg/dL 10/17/2024 9:59 AM [facility] Blood BLOOD SPECIMEN / Unknown Venipuncture / Unknown 10/17/2024 9:09 AM ECHO VASCULAR TECHNOLOGIST 10/17/2024 9:20 AM ECHO VASCULAR TECHNOLOGIST Mattie Tong MD LAB - CHEMISTRY TOM JACOBSON Performing Organization Address City/[facility]/ZIP Co de Phone Number [address] [address], [place] [phone] * IRON + TRANSFERRIN PANEL (10/17/2024 9:09 AM ECHO VASCULAR TECHNOLOGIST) Iron 58 50 - 175 ug/dL 10/17/2024 10:35 AM [facility] Transferrin 212 174 - 382 mg/dL 10/17/2024 10:35 AM [facility] Transferrin Saturation % 22 16 - 50 % 10/17/2024 10:35 AM [facility] TIBC Calculated 265 240 - 450 ug/dL 10/17/2024 10:35 AM [facility] Blood BLOOD SPECIMEN / Unknown Venipuncture / Unknown 10/17/2024 9:09 AM ECHO VASCULAR TECHNOLOGIST 10/17/2024 9:16 AM ECHO VASCULAR TECHNOLOGIST Elizabeth HAGAN LAB - CHEMISTRY VU CORONEL [address] [address], [place] [phone] * FERRITIN (10/17/2024 9:09 AM ECHO VASCULAR TECHNOLOGIST) Ferritin 98 22 - 275 ng/mL 10/17/2024 10:35 AM [facility] Blood BLOOD SPECIMEN / Unknown Venipuncture / Unknown 10/17/2024 9:09 AM ECHO VASCULAR TECHNOLOGIST 10/17/2024 9:16 AM ECHO VASCULAR TECHNOLOGIST Elizabeth Newby TRICIA-TECHNICAL SUPPORT 1 SOFTWARE ENGINEER LAB - CHEMISTRY ORD ERABLES Performing Organization Address [facility]/ZIP Co de Phone Number [facility] [address] [place] [address], [facility] [phone] * (ABNORMAL) PT-INR [facility] (09/28/2024 10:46 AM ECHO VASCULAR TECHNOLOGIST) Only the most recent of5 resultswithin the time period is included. PT 14.9(H) 12.1 - 14.8 Seconds 09/28/2024 11:19 AM [facility] INR 1.2 See Comment 09/28/2024 11:19 AM [facility] Comment:The suggested therap eutic range for standard coumadin (warfarin) therapy is an INR of 2.0-3.0. For high-risk patients (Mechanical Mitral Valve Prosthesis, etc.), the suggested prophylactic therapeutic range is an INR of 2.5-3.5. Blood BLOOD SPECIMEN / Unknown Venipuncture / Unknown 09/28/2024 10:46 AM ECHO VASCULAR TECHNOLOGIST 09/28/2024 10:50 AM ECHO VASCULAR TECHNOLOGIST Tarng Wheatley Minna [facility] LAB - COAGULA TION ORDERABLES Performing Organization Address [facility]/ZIP Co de Phone Number [facility] [address] [place] [address], [facility] [phone] * (ABNORMAL) URINALYSIS W/MICROSCOPIC REFLEX TO CULTURE (09/28/2024 10:46 AM ECHO VASCULAR TECHNOLOGIST) Color UA Straw Straw, Yellow 09/28/2024 11:02 AM [facility] Clarity UA Clear Clear 09/28/2024 11:02 AM [facility] Specific Galt UA 1.004(L) 1.005 - 1.030 09/28/2024 11:02 AM [facility] pH UA 6.0 5.0 - 8.0 pH 09/28/2024 11:02 AM [facility] Protein UA Negative Negative 09/28/2024 11:02 AM [facility] Glucose UA Negative Negative 09/28/2024 11:02 AM [facility] Ketone UA Negative Negative 09/28/2024 11:02 AM [facility] Bilirubin UA Negative Negative 09/28/2024 11:02 AM [facility] Blood UA Negative Negative 09/28/2024 11:02 AM [facility] Nitrite UA Negative Negative 09/28/2024 11:02 AM [facility] Leukocyte Esterase Negative Negative 09/28/2024 11:02 AM [facility] Urobilinogen UA Negative Negative mg/dL 09/28/2024 11:02 AM [facility] RBC UA 0-2 None Seen, 0-2, 3-5 /HPF 09/28/2024 11:02 AM [facility] WBC UA 0-5 None Seen, 0-5 /HPF 09/28/2024 11:02 AM [facility] Squamous Epithelial Cells UA None Seen None Seen, 0-2, 3-5 /HPF 09/28/2024 11:02 AM [facility] Urine URINE SPECIMEN OBTAINED BY CLEAN CATCH PROCEDURE / Unknown Collection / Unknown 09/28/2024 10:46 AM ECHO VASCULAR TECHNOLOGIST 09/28/2024 10:50 AM ECHO VASCULAR TECHNOLOGIST [facility] - 09/28/2024 11:02 AM ECHO VASCULAR TECHNOLOGIST Culture Not Indicated Trang Buitrago MANAGING MANAGER-TECHNICAL SUPPORT 1 SOFTWARE ENGINEER LAB - URINALY SIS ORDERABLES Performing Organization Address City/State/[facility] Co de Phone Number [facility] [address] [place] [address], [facility] [phone] * IR Gilberto Cath Insert (09/21/2024 8:57 AM ECHO VASCULAR TECHNOLOGIST) Anatomical Region Laterality Modality Chest X-Ray Angiograph y 09/21/2024 2:46 PM ECHO VASCULAR TECHNOLOGIST Impressions 09/21/2024 5:28 PM ECHO VASCULAR TECHNOLOGIST Impression: Successful placement of a single lumen 8 Chadian x 26 cm chest power port via [...] evaluation, please review the evaluation forms in [facility]. For details on monitored clinical parameters during the intra-service sedation time, please review the procedure nurse documentation in [facility]. > Dictated by Titi Moulton (Maintainer Plant) 09/21/2024 2:46 PM Lawanda Weber MD have personally reviewed and interpreted this examination/study. > Interpreting Provider: Lawanda Vergara MD on 09/21/2024 5:28 PM Narrative 09/21/2024 5:28 PM ECHO VASCULAR TECHNOLOGIST PROCEDURE: IR GILBERTO CATH INSERT DATE/TIME OF [...] chest. 3.Fluoroscopy-guided placement of single lumen 8 Chadian x 26 cm chest power port via the right internal jugular vein. Fluoroscopic time: 0.8 minutes Procedure details: The procedure, risks, and possible complications were explained to the patient in detail and informed consent was obtained. The patient was placed supine on the angiography table. The right neck and upper chest were prepped and draped in the usual sterile manner. A director of accreditation film of chest was obtained, which was [...] chest. 3.Fluoroscopy-guided placement of single lumen 8 Chadian x 26 cm chestpower port via the right internal jugular vein. Fluoroscopic time: 0.8 minutes Procedure details: The procedure, risks, and possible complications were explained to the patient in detail and informed consent was obtained. The patient wasplaced supine on the angiography table. The right neck and upper chest were prepped and draped in the usual sterile manner. A director of accreditation film of chestwas obtained, which was unremarkable. [...] the procedure well [facility]. There were no immediate complicationsassociated with the procedure. Impression: Successful placement of a single lumen 8 Chadian x 26 cmchest power port via the [...] patient evaluation, please reviewthe evaluation forms in [facility]. For details on monitored clinical parameters during the intra-service sedation time, please review the procedurenurse documentation in [facility]. > Dictated by Titi Moulton (Maintainer Plant) 09/21/2024 2:46 PM Lawanda Weber MD have personally reviewed and interpreted this examination/study. > Interpreting Provider: Lawanda Vergara MD on 09/21/2024 5:28 PM Víctor Hooper MD IR ORDERABLES * (ABNORMAL) GLUCOSE - POINT OF CARE (09/21/2024 6:48 AM ECHO VASCULAR TECHNOLOGIST) Only the most recent of39 resultswithin the time period is included. Glucose WB/POC 138(H) 70 - 99 mg/dL 09/21/2024 6:48 AM ECHO VASCULAR TECHNOLOGIST [facility] Specimen Type Venous 09/21/2024 6:48 AM ECHO VASCULAR TECHNOLOGIST [facility] Blood BLOOD SPECIMEN / Unknown 09/21/2024 6:48 AM ECHO VASCULAR TECHNOLOGIST 09/21/2024 6:48 AM ECHO VASCULAR TECHNOLOGIST Víctor Hooper MD LAB - POINT OF CARE ORDERABLES [address] [address], [facility] [phone] * (ABNORMAL) PTT [facility] (09/07/2024 12:23 AM ECHO VASCULAR TECHNOLOGIST) Only the most recent of6 resultswithin the time period is included. APTT 68.3(H) 23.0 - 38.4 Seconds 09/07/2024 1:27 AM [facility] Comment:Suggested therapeuti c range for full dose I.V. unfractionated heparin therapy for venous thromboembolism is 71 to 109 seconds. Blood BLOOD SPECIMEN / Unknown Lab Venipuncture / Unknown 09/07/2024 12:23 AM ECHO VASCULAR TECHNOLOGIST 09/07/2024 1:04 AM ECHO VASCULAR TECHNOLOGIST Hilton Jackson III, MD LAB - COAGULATI ON ORDERABLES [facility] [address] [place] [address], [facility] [phone] * (ABNORMAL) CBC W/O DIFFERENTIAL (09/07/2024 12:23 AM [facility]) Only the most recent of10 resultswithin the time period is included. WBC 6.3 4.0 - 10.7 x10E9/L 09/07/2024 1:12 AM [facility] RBC Count 3.46(L) 4.30 - 5.80 x10E12/L 09/07/2024 1:12 AM [facility] Hemoglobin 10.7(L) 13.3 - 17.5 g/dL 09/07/2024 1:12 AM [facility] Hematocrit 32.1(L) 38.7 - 51.1 % 09/07/2024 1:12 AM [facility] MCV 92.8 80.0 - 98.0 fL 09/07/2024 1:12 AM [facility] MCH 30.9 26.7 - 33.6 pg 09/07/2024 1:12 AM [facility] MCHC 33.3 31.7 - 36.3 g/dL 09/07/2024 1:12 AM [facility] RDW-CV 12.5 11.3 - 14.8 % 09/07/2024 1:12 AM [facility] Platelet Count 339 150 - 420 x10E9/L 09/07/2024 1:12 AM [facility] MPV 9.9 7.8 - 11.4 fL 09/07/2024 1:12 AM [facility] Blood BLOOD SPECIMEN / Unknown Lab Venipuncture / Unknown 09/07/2024 12:23 AM ECHO VASCULAR TECHNOLOGIST 09/07/2024 1:07 AM ECHO VASCULAR TECHNOLOGIST Hilton Jackson III, MD LAB - HEMATOLOG Y ORDERABLES [facility] [address] [place] [address], [facility] [phone] * (ABNORMAL) BASIC METABOLIC PANEL (CALCIUM TOTAL) (09/06/2024 12:47 AM ECHO VASCULAR TECHNOLOGIST) Only the most recent of3 resultswithin the time period is included. BUN 9 7 - 26 mg/dL 09/06/2024 2:57 AM [facility] Creatinine 0.98 0.71 - 1.16 mg/dL 09/06/2024 2:57 AM [facility] Sodium 133(L) 136 - 145 mmol/L 09/06/2024 2:57 AM [facility] Potassium 4.1 3.5 - 4.5 mmol/L 09/06/2024 2:57 AM [facility] Chloride 105 98 - 107 mmol/L 09/06/2024 2:57 AM [facility] CO2 19(L) 22 - 29 mmol/L 09/06/2024 2:57 AM [facility] Glucose 140(H) 70 - 99 mg/dL 09/06/2024 2:57 AM [facility] Calcium 8.5 8.4 - 10.2 mg/dL 09/06/2024 2:57 AM [facility] Anion Gap 9 6 - 16 09/06/2024 2:57 AM [facility] BUN/Creatinine Ratio 9 7 - 23 09/06/2024 2:57 AM [facility] Osmolality Calculated 277 275 - 295 mOsm/kg 09/06/2024 2:57 AM [facility] eGFR by CKD-EPI 83(L) >=90 mL/min/1.7 3 m2 09/06/2024 2:57 AM [facility] Blood BLOOD SPECIMEN / Unknown Lab Venipuncture / Unknown 09/06/2024 12:47 AM ECHO VASCULAR TECHNOLOGIST 09/06/2024 2:25 AM ECHO VASCULAR TECHNOLOGIST Hilton Jackson III, MD LAB - CHEMISTRY ORDERABLES [place] [address] [place] [address], [facility] [phone] * EGD (09/04/2024 9:26 AM ECHO VASCULAR TECHNOLOGIST) Report Endoscopy POC Endoscopy Department Report _ [...] entire procedure. Procedure Code(s): --- Professional --- 06154, Esophagogastroduod enoscopy, flexible, transoral; diagnostic, including collection of specimen(s) by brushing or washing, when performed (separate procedure) Diagnosis Code(s): --- Professional --- I85.00, Esophageal varices without bleeding K44.9, Diaphragmatic hernia without obstruction or gangrene K25.9, Gastric ulcer, unspecified as acute or chronic, without hemorrhage or perforation K29.70, Gastritis, unspecified, without bleeding K92.1, Melena (includes Hematochezia) CPT copyright 2021 [employer]. All rights reserved. The codes documented in this report are preliminary and upon optical manufacturing technician review may be revised to meet current compliance requirements. Ian Ellsworth, 09/04/2024 10:16:58 AM Note Initiated On: 09/04/2024 9:26 AM Number of Addenda: [id number] [place] [address] PROVATION 09/04/2024 9:26 AM ECHO VASCULAR TECHNOLOGIST Moncho Zacarias MD GI PROCEDURE ORDERAB LES [facility] PROVATION * BLOOD TYPE VERIFICATION (09/03/2024 9:47 AM ECHO VASCULAR TECHNOLOGIST) ABO Rh A POS 09/03/2024 10:35 AM ECHO VASCULAR TECHNOLOGIST [facility] Blood Bank BLOOD SPECIMEN / Unknown Lab Venipuncture / Unknown 09/03/2024 9:47 AM ECHO VASCULAR TECHNOLOGIST 09/03/2024 10:08 AM ECHO VASCULAR TECHNOLOGIST Ruth Chavez MANAGING MANAGER-TECHNICAL SUPPORT 1 SOFTWARE ENGINEER LAB - BLOOD BANK ORDERABLES [facility] [address] [place] [address], [facility] [phone] * CT Abdomen Pelvis W Contrast (09/02/2024 10:39 PM ECHO VASCULAR TECHNOLOGIST) Anatomical Region Laterality Modality Abdomen, Pelvis Computed Tomogra phy 09/02/2024 11:2 1 PM ECHO VASCULAR TECHNOLOGIST Impressions 09/03/2024 10:26 AM ECHO VASCULAR TECHNOLOGIST Impression: 1.Findings consistent with hepatic cirrhosis with [...] study. > Dictated by Deni Franklin MD (surgeon/president). I, Bc Fortune MD have personally reviewed and interpreted this examination/study. > Interpreting Provider: Bc Fortune MD on 09/03/2024 10:26 AM Narrative 09/03/2024 10:26 AM ECHO VASCULAR TECHNOLOGIST PROCEDURE: CT ABDOMEN PELVIS W CONTRAST, DATE/TIME OF EXAM: 09/02/2024 10:40 PM, LOCATION [facility] INDICATION: K92.1: Melena C18.9: Malignant neoplasm of [...] OF EXAM: 09/02/2024 10:40 PM, LOCATION [facility] INDICATION: K92.1: Melena C18.9: Malignant neoplasm of [...] study. > Dictated by Deni Franklin MD (surgeon/president). I, Bc Fortune MD have personally reviewed and interpreted this examination/study. > Interpreting Provider: Bc Fortune MD on 09/03/2024 10:26 AM Eh Bales MD CT ORDERABLES * TYPE + SCREEN PANEL (09/02/2024 9:38 PM ECHO VASCULAR TECHNOLOGIST) Antibody Screen NEG 10:21 PM ECHO VASCULAR TECHNOLOGIST [facility] ABO Rh A POS 09/02/2024 10:21 PM ECHO VASCULAR TECHNOLOGIST [facility] Blood Bank BLOOD SPECIMEN / Unknown Venipuncture / Unknown 09/02/2024 9:38 PM ECHO VASCULAR TECHNOLOGIST 09/02/2024 9:45 PM ECHO VASCULAR TECHNOLOGIST Eh Bales MD LAB - BLOOD BANK ORD ERABLES [facility] [address] [place] [address], [facility] [phone] * [facility] XT (08/24/2024 10:37 AM ECHO VASCULAR TECHNOLOGIST) Pathology/Cytolo gy MISCELLANEOUS SAMPLES / Unknown 08/24/2024 10:37 AM ECHO VASCULAR TECHNOLOGIST 08/24/2024 10:37 AM ECHO VASCULAR TECHNOLOGIST Víctor Hooper MD LAB - PATHOLOGY/CYTO LOGY ORDERABLES [facility] [address] [facility], [address] [place] [address] * PATHOLOGY TISSUE (08/23/2024 2:15 PM ECHO VASCULAR TECHNOLOGIST) Case Report Surgical Pathology Report Case: [id number] Authorizing Provider: Kerri Finch MD Collected: 08/23/2024 02:15 PM Ordering Location: [facility] Received: 08/23/2024 03:01 PM Pathologist: Luann Hand MD Specimens: A) - Gastric, gastric biopsies r/o H. Pylori, r/o gastric cancer B) - Large Intestine, Right/Ascending Colon, ascending colon mass biopsies 08/30/2024 9:19 AM ECHO VASCULAR TECHNOLOGIST [facility] Final Diagnosis Stomach, biopsy (A): - Focal active gastritis and reactive changes - Negative for H. pylori Large intestine, ascending colon mass, biopsy (B): - Adenocarcinoma, moderate-poorly differentiated 08/30/2024 9:19 AM [facility] Addendum electronically signed by Luann Hand MD on 08/30/2024 at 9:19 AM Microscopic Description and Comment The ascending colon mass (part B) is fragments of moderately to poorly differentiated adenocarcinoma infiltrating a desmoplastic stroma. In areas, the tumor cells are arranged in solid and cribriforming nests. Immunostains (block B1, with appropriately staining controls) show tumor cells to be positive for CDX2 and negative for NKX3.1, compatible with intestinal origin; CK20 is negative, and CK7 highlights only rare tumor cells, possibly a reflection of the poorly differentiated morphology. 08/30/2024 9:19 AM [facility] Clinical History The patient is a 68-year-old man with melena. Operative procedure/findings: EGD - grade 1 esophageal varices; nonbleeding gastric ulcers with clean base, biopsied to rule out H. pylori and gastric cancer. Colonoscopy - malignant partially obstructing tumor in the ascending colon, biopsied. 08/30/2024 9:19 AM [facility] Gross Description The requisition and specimen(s) are identified with the patient's name, Edwin Rhoades. Received in formalin, specimen A , are multiple -pink tissue fragments, 0.1-0.3 cm, 1.0 x 0.4 x 0.1 cm in aggregate , submitted in toto in cassette A1. Received in formalin, specimen B are multiple -pink tissue fragments, 0.1-0.2 cm, 0.8 x 0.5 x 0.1 cm in aggregate , submitted in toto in cassette B1. IKD 08/30/2024 9:19 AM [facility] Addendum 1 A request for Tempus xT, PDL1 IHC, and MMR IHC was received 08/28/2024 for patient Edwin Rhoades from Dr. Víctor Hooper. The test is to be performed on tissue from case [id number]. The case report, slides, and blocks for the cited accession were retrieved from the archives. The pathologist whose signature appears below reviewed the original pathology report, examined candidate H&E slides, and selected the block B1 appropriate to the specifications of the ordered molecular analysis. The tissue was forwarded to [facility] where the subject molecular tests will be performed. An addendum result will be issued when the results of this molecular test are available. 08/30/2024 9:19 AM [facility] Addendum electronically signed by Matt Ayers MD on 08/28/2024 at 1:52 PM Pathologist Location at [facility] 08/30/2024 9:19 AM [facility] Disclaimer The performance characteristics of all immunohistochemical and indirect immunofluorescence stains (if any) cited in this report were determined by the Histopathology Laboratory of [facility]. Some of these tests were developed by our own laboratory and have not been cleared or approved by the US Food and Drug Administration. The FDA does not require this test to go through premarket FDA review. These tests are used for clinical purposes. They should not be regarded as investigational or for research. This laboratory is certified under the Clinical Laboratory Improvement Amendments (CLIA) as qualified to perform high complexity clinical laboratory testing. This case has been personally reviewed and interpreted by the attending (teaching) pathologist. 08/30/2024 9:19 AM [facility] Synoptic Report Colon and Rectum Biomarker Reporting Template (Added in Addendum) COLON AND RECTUM: BIOMARKER REPORTING TEMPLATE - All Specimens Protocol posted: 04/09/2021 RESULTS Mismatch Repair: Immunohistochemistry (IHC) Testing for Mismatch Repair (MMR) Proteins: MLH1 Result: Intact nuclear expression Immunohistochemistry (IHC) Testing for Mismatch Repair (MMR) Proteins: MSH2 Result: Intact nuclear expression Immunohistochemistry (IHC) Testing for Mismatch Repair (MMR) Proteins: MSH6 Result: Intact nuclear expression Immunohistochemistry (IHC) Testing for Mismatch Repair (MMR) Proteins: PMS2 Result: Intact nuclear expression Immunohistochemistry (IHC) Testing for Mismatch Repair (MMR) Proteins: Background nonneoplastic tissue / internal control with intact nuclear expression IHC Interpretation: No loss of nuclear expression of MMR proteins: low probability of MSI-H Comment(s): Technical performance of immunostains (single antibody stain procedures; [place] MMR RdDx Panel MLH1 (M1), MSH2 ([id number]), MSH6 (SP93), and PMS2 (A16-4) was referred to [facility], [address], [place] [address]; professional interpretation performed at [facility]. 08/30/2024 9:19 AM [facility] Embedded Images 08/30/2024 9:19 AM [facility] Biopsy, NOS GASTRIC CONTENTS SPECIMEN / Unknown 08/23/2024 2:15 PM ECHO VASCULAR TECHNOLOGIST 08/23/2024 3:01 PM ECHO VASCULAR TECHNOLOGIST Comment:Pre-op diagnosis: Melena Biopsy, NOS (Large Intestine, Right/Ascending Colon) 08/23/2024 2:42 PM ECHO VASCULAR TECHNOLOGIST 08/23/2024 3:01 PM ECHO VASCULAR TECHNOLOGIST Comment:Pre-op diagnosis: Melena Kerri Finch MD LAB - PATHOLOGY/CYTO LOGY ORDERABLES [facility] [address] [place], [place] [address] [place] [address] * SLIDE PREP HISTOLOGY (08/23/2024 2:15 PM ECHO VASCULAR TECHNOLOGIST) Client Specimen ID # [id number] 08/11 4 10:[address] [facility] Number of Slides Received 6 4 10:[address] [facility] Comment MMR panel 10:[address] [facility] Slide Prep Complete Testing is technical only and does not require an interpretation of results. 10:[address] [facility] Comment:All histochemical an d/or immunohistochemical results are interpreted with controls that demonstrate appropriate staining reactions before reporting results. Note on use of immunocytochemistry reagents: This test was developed and its performance characteristic determined by [facility], Department of Laboratory Medicine. [...] gy (Large Intestine, NOS) 08/23/2024 2:15 PM ECHO VASCULAR TECHNOLOGIST 08/29/2024 10:18 AM ECHO VASCULAR TECHNOLOGIST Luann Hand MD LAB - PATHOLOGY/CY TOLOGY ORDERABLES [facility] [address] [place] [address] * ETT LINE PERFORMABLE (08/23/2024 2:11 PM ECHO VASCULAR TECHNOLOGIST) Narrative Piper Bergeron APRN-CRNA - 08/23/2024 2:11 PM ECHO VASCULAR TECHNOLOGIST Piper Bergeron APRN-CRNA 08/23/2024 2:12 PM Endotracheal Tube Placement: Patient Location: OR. Intubation Event Date/Time: 08/23/2024 2:02 PM Procedure: intubation (75003) Procedure Section: Induction: rapid sequence Patient Position: sniffing Mask Ventilation: not attempted. Blade Type: Ayers Blade Size: 2 Laryngoscopy View: grade 2 (partial cords) Intubation Adjuncts: stylet, cricoid pressure and Eschmann introducer Tube: endotracheal tube Placement: oral Tube type: cuff - inflated Tube Size (MM): 7 Depth of Insertion (CM): 22 Measured From: teeth Cuff Inflated With: air Number of Attempts: 1. Placement Verified By: direct visualization, bilateral breath sounds, chest auscultation and CO2 monitor Tube secured with: adhesive tape and ETT villalpando. Dentition unchanged? Yes Difficult Airway? No. Procedure Start Time: 08/23/2024 2:02 PM. Staff Section Anesthesia Provider: Piper Bergeron APRN-CRNA, Performed the procedure Provider #1: Faustina Gabriel MD. Faustina Gabriel MD GENERAL ANESTHESIA O RDERABLES * Endoscopy, Colon, Diagnostic (08/23/2024 1:34 PM ECHO VASCULAR TECHNOLOGIST) Report Endoscopy POC Endoscopy Department Report _ [...] bowel preparation was evaluated using the BBPS ([place] Bowel Preparation Scale) with scores of: Right [...] and participated during the entire procedure, including non-molina portions. Procedure Code(s): --- Professional --- 09792, Colonoscopy, flexible; with biopsy, single or multiple Diagnosis Code(s): --- Professional --- K64.8, Other hemorrhoids C18.2, Malignant neoplasm of ascending colon K56.690, Other partial intestinal obstruction K57.30, Diverticulosis of large intestine without perforation or abscess without bleeding CPT copyright 2021 [employer]. All rights reserved. The codes documented in this report are preliminary and upon optical manufacturing technician review may be revised to meet current compliance requirements. Kerri Finch MD 08/23/2024 3:10:02 PM Note Initiated On: 08/23/2024 1:34 PM Number of Addenda: 0 [facility] [address] [place] [address] [facility] PROVATION 08/23/2024 1:34 PM ECHO VASCULAR TECHNOLOGIST Wayne Doss MD GI PROCEDURE ORDERAB LES [facility] PROVATION * EGD (08/23/2024 1:34 PM ECHO VASCULAR TECHNOLOGIST) Report Endoscopy POC Endoscopy Department Report _ Patient Name: Edwin Rhoades Procedure Date: 08/23/2024 1:34 PM Date of : 1955 Classification: Inpatient Gender: Male Ethnicity: Unknown Race: Unknown _ Providers: Kerri Finch MD, Juan Acevedo (Fellow) Referring MD: Procedure: Upper GI endoscopy Indications: Melena Medications: General Anesthesia Patient Profile: This is a 68 year old male. Description of Procedure: Pre-Anesthesia Assessment: - Prior [...] satisfactory condition to undergo the procedure. After obtaining informed consent, the endoscope was passed under direct vision. Throughout the procedure, the patient's blood pressure, pulse, and oxygen saturations were monitored continuously. The [id number] was introduced through the mouth, and advanced to the third part of duodenum. The upper GI endoscopy was accomplished without difficulty. The patient tolerated the procedure well. Findings: Esophagogastric landmarks were identified: the Z-line was found at 38 cm, the upper extent of the gastric folds was found at 38 cm and the site of hiatal narrowing was found at 40 cm from the incisors. A 2 cm hiatal hernia was present. Grade I varices were found in the lower third of the esophagus. Many non-bleeding cratered gastric ulcers with a clean ulcer base ([place] Class III) were found in the gastric body with surrounding erythema and edema. The largest lesion was 10 mm in largest dimension. Biopsies were taken with a cold forceps for histology. The examined duodenum was normal. Estimated Blood Loss: Estimated blood loss was minimal. Complications: No immediate complications. Impression: - 2 cm hiatal hernia. - Grade I esophageal varices. - Non-bleeding gastric ulcers with a clean ulcer base ([place] Class III). Biopsied. These were likely the source of the patient's melena. - Normal examined duodenum. Recommendation: - [facility]. - Resume previous diet. - Use a proton pump inhibitor PO BID for 8 weeks then daily - Await pathology results. - Avoid any NSAIDs use Attending Participation: I was present and participated during the entire procedure, including non-molina portions. Procedure Code(s): --- Professional --- 30005, Esophagogastroduod enoscopy, flexible, transoral; with biopsy, single or multiple Diagnosis Code(s): --- Professional --- K44.9, Diaphragmatic hernia without obstruction or gangrene I85.00, Esophageal varices without bleeding K25.9, Gastric ulcer, unspecified as acute or chronic, without hemorrhage or perforation K92.1, Melena (includes Hematochezia) CPT copyright 2021 [employer]. All rights reserved. The codes documented in this report are preliminary and upon optical manufacturing technician review may be revised to meet current compliance requirements. Kerri Finch MD 08/23/2024 3:07:14 PM Note Initiated On: 08/23/2024 1:34 PM Number of Addenda: [address] [address] [facility] PROVATION 08/23/2024 1:34 PM ECHO VASCULAR TECHNOLOGIST Wayne Doss MD GI PROCEDURE ORDERAB LES [facility] PROVATION * (ABNORMAL) HEMOGLOBIN A1C (08/23/2024 8:38 AM ECHO VASCULAR TECHNOLOGIST) Hemoglobin A1c 8.0(H) <=5.6 % 08/23/2024 12:31 PM ECHO VASCULAR TECHNOLOGIST [facility] Estimated Average Glucose 183 mg/dL 08/23/2024 12:31 PM ECHO VASCULAR TECHNOLOGIST [facility] Comment: HbA1c Interpretation: Normal : < 5.7% Pre-diabetes: 5.7-6.4% Diabetes: Equal to or greater than 6.5% Test results diagnostic of diabetes should be repeated for confirmation. Treatment target values recommended by ADA and other clinical organizations should be used to evaluate metabolic control in patients. Reference: [employer], Standards of Care in Diabetes -2020 In patients 70 years and older consider HbA1c target range of 7.0-7.5% (Reference: Panda Thompson et al. JAMDA. 2012) The Sebia assay for the measurement of HbA1c is a National Glycohemoglobin Standardization Program (NGSP) certified method. Blood BLOOD SPECIMEN / Unknown Lab Venipuncture / Unknown 08/23/2024 8:38 AM ECHO VASCULAR TECHNOLOGIST 08/23/2024 9:33 AM ECHO VASCULAR TECHNOLOGIST Wayne Doss MD LAB - CHEMISTRY ORDE RABTRICIA Performing Organization Address City/[facility]/ZIP Co de Phone Number [facility] [address] [place] [address], [facility] [phone] * (ABNORMAL) CANCER ANTIGEN (CA)125 BLOOD (08/22/2024 8:23 AM ECHO VASCULAR TECHNOLOGIST) CA 125 450(H) <=38 U/mL 08/24/2024 11:10 AM ECHO VASCULAR TECHNOLOGIST [facility] ([facility]) Comment: INTERPRETIVE INFORMATION: Cancer Antigen 125 [employer] [facility] CA 125 electrochemiluminescent immunoassay was used. Results obtained with different test methods or kits cannot be used interchangeably. The CA 125 test is used as an aid in monitoring response to therapy for patients with epithelial ovarian cancer. Serial testing for patient CA 125 values should be used in conjunction with other clinical methods for monitoring ovarian cancer. Patients with confirmed ovarian carcinoma may have pretreatment CA 125 values in the same range as healthy individuals. Elevations may be observed in patients with nonmalignant disease. Therefore, a CA 125 value, regardless of level, should not be interpreted as absolute evidence of the presence or absence of malignant disease. Performed By: [employer] [address] [place] [address] Chief Procurement Officer: Caden Cardoza MD, PhD CLIA Number: [id number] Blood BLOOD SPECIMEN / Unknown Lab Venipuncture / Unknown 08/22/2024 8:23 AM ECHO VASCULAR TECHNOLOGIST 08/22/2024 8:45 AM ECHO VASCULAR TECHNOLOGIST Leia Pelaez MD LAB - CHEMISTRY TOM JACOBSON Performing Organization Address City/[facility] Co de Phone Number [address] * HEPATITIS C AB SCREEN RFLX NAAT QUANT (08/21/2024 7:37 AM ECHO VASCULAR TECHNOLOGIST) [facility] Hepatitis C Antibody Non-react ap Non-reac tive 08/21/2024 8:36 AM ECHO VASCULAR TECHNOLOGIST [facility] Comment:Hepatitis C Antibody screen indicates no serologic evidence of past or current infection with Hepatitis C Virus. Patients with unexplained liver disease who are immunocompromised or suspected of having acute Hepatitis C infection may benefit from Nucleic Acid Test ([place]) for Hepatitis C Viral RNA to confirm Hepatitis C status. Blood BLOOD SPECIMEN / Unknown Lab Venipuncture / Unknown 08/21/2024 7:37 AM ECHO VASCULAR TECHNOLOGIST 08/21/2024 7:47 AM ECHO VASCULAR TECHNOLOGIST Leia Pelaez MD LAB - CHEMISTRY TOM JACOBSON [facility] [address] [place] [address], [facility] [phone] * CANCER ANTIGEN (CA) 19-9 (08/21/2024 7:37 AM ECHO VASCULAR TECHNOLOGIST) Only the most recent of2 resultswithin the time period is included. Pathologist [facility] CA 19-9 24 <=35 U/mL 08/22/2024 7:43 PM ECHO VASCULAR TECHNOLOGIST [facility] ([facility]) Comment: INTERPRETIVE INFORMATION: Cancer Antigen-GI (CA 19-9) This test uses Home CA 19-9 electrochemiluminescent immunoassay. Results obtained with different test methods or kits cannot be used interchangeably. CA 19-9 value is useful in monitoring pancreatic, hepatobiliary, gastric, hepatocellular, and colorectal cancer. CA 19-9 value, regardless of level, should not be interpreted as absolute evidence of the presence or absence of malignant disease. Performed By: [place] [address] Chief Procurement Officer: Caden Cardoza MD, PhD CLIA Number: [id number] Blood BLOOD SPECIMEN / Unknown Lab Venipuncture / Unknown 08/21/2024 7:37 AM ECHO VASCULAR TECHNOLOGIST 08/21/2024 7:47 AM ECHO VASCULAR TECHNOLOGIST Leia Pelaez MD LAB - CHEMISTRY TOM JACOBSON Performing Organization Address City/[facility] Co de Phone Number [facility] ([facility]) [address] [place] [id number] * ALPHA FETOPROTEIN BLOOD TUMOR MARKER (08/21/2024 7:37 AM ECHO VASCULAR TECHNOLOGIST) Pathologist [facility] Alpha-Fetoprote in Tumor Marker 6.1 <=8.3 ng/mL 08/21/2024 8:35 AM ECHO VASCULAR TECHNOLOGIST [facility] Comment: AFP values will vary depending on testing procedure used. Results are not comparable across different methods. AFP values obtained by [facility] using an [employer] Alinity Immunoassay. Blood BLOOD SPECIMEN / Unknown Lab Venipuncture / Unknown 08/21/2024 7:37 AM ECHO VASCULAR TECHNOLOGIST 08/21/2024 7:49 AM ECHO VASCULAR TECHNOLOGIST Leia Pelaez MD LAB - CHEMISTRY TOM JACOBSON [facility] [address] [place] [address], [place] [phone] * HEPATITIS B PANEL (08/21/2024 7:37 AM ECHO VASCULAR TECHNOLOGIST) Pathologist [facility] Hepatitis B Virus Surface Antibody Non-reacti ve Non-react ap 08/21/2024 8:36 AM ECHO VASCULAR TECHNOLOGIST [facility] Comment: < 8 mIU/mL Hepatitis B surface Antibody (HBsAb). Nonreactive for HBsAb - individual is considered not immune to Hepatitis B Virus infection. Hepatitis B Virus Surface Antigen Non-reacti ve Non-react ap 08/21/2024 8:36 AM ECHO VASCULAR TECHNOLOGIST [facility] Hepatitis B Core Virus Antibody IgM Non-reacti ve Non-react ap 08/21/2024 8:36 AM ECHO VASCULAR TECHNOLOGIST [facility] Blood BLOOD SPECIMEN / Unknown Lab Venipuncture / Unknown 08/21/2024 7:37 AM ECHO VASCULAR TECHNOLOGIST 08/21/2024 7:47 AM ECHO VASCULAR TECHNOLOGIST Leia Pelaez MD LAB - CHEMISTRY TOM JACOBSON Performing Organization Address City/[facility]/ZIP Co de Phone Number [address] [address], [facility] [phone] * (ABNORMAL) CEA BLOOD (08/21/2024 7:37 AM ECHO VASCULAR TECHNOLOGIST) Only the most recent of2 resultswithin the time period is included. CEA 43.2(H) <=5.0 ng/mL 08/21/2024 8:37 AM ECHO VASCULAR TECHNOLOGIST [facility] Comment:CEA values will vary depending on testing procedure used. Results are not comparable across different methods. CEA values obtained by [facility] using an [employer] Alinity immunoassay. Blood BLOOD SPECIMEN / Unknown Lab Venipuncture / Unknown 08/21/2024 7:37 AM ECHO VASCULAR TECHNOLOGIST 08/21/2024 7:49 AM ECHO VASCULAR TECHNOLOGIST Leia Pelaez MD LAB - CHEMISTRY TOM JACOBSON Performing Organization Address City/[facility]/ZIP Co de Phone Number [address] [address], [place] [phone] * CT Chest Abdomen Pelvis W Cont (08/20/2024 3:45 PM ECHO VASCULAR TECHNOLOGIST) Anatomical Region Laterality Modality Chest, Abdomen, Pelvis Computed Tomography 08/21/2024 7:07 AM ECHO VASCULAR TECHNOLOGIST Impressions 08/21/2024 1:52 PM ECHO VASCULAR TECHNOLOGIST IMPRESSION: 1.Mildly dilated loops of duodenum and jejunum measuring up to 3.2 cm with air-fluid levels, gradual caliber change in the distal ileum, with decompressed ileum and colon distally from this point may represent low-grade partial obstruction. Contrast is visualized in the colon and rectum likely from previous oral contrast administered at outside hospital. There is a segment of inflamed small bowel just proximal to this area. 2.Soft tissue nodularity throughout the mesentery representing peritoneal carcinomatosis. 3.Thrombus measuring 6 mm in maximal diameter within the superior mesenteric vein. The portal and splenic vein are patent. 4.Thrombus in the superior vena cava measuring 1.2 cm in maximum thickness just distal to left upper extremity PICC tip terminates in the superior SVC. 5.Nodular shrunken appearance of liver with moderate volume ascites throughout the abdomen and pelvis compatible with cirrhosis. 6.Trace right greater than left pleural effusions. These findings were discussed in detail with the patient's care provider, Dr. Franklin by Dr. Deni Franklin via telephone at 9:32 PM on 08/20/2024 with readback comprehension and verification. > Dictated by Divine Pruett MD, (surgeon/president). > Dictated by Divine Pruett MD (Maintainer Plant) 08/21/2024 7:07 AM I, Ever Pfeiffer MD have personally reviewed and interpreted this examination/study. > Interpreting Provider: Ever Pfeiffer MD on 08/21/2024 1:52 PM Narrative 08/21/2024 1:52 PM ECHO VASCULAR TECHNOLOGIST PROCEDURE: CT CHEST ABDOMEN PELVIS W CONT DATE/TIME OF EXAM: 08/20/2024 3:46 PM CLINICAL INFORMATION: None relevant/not provided if blank. Indication: C78.6: Peritoneal carcinomatosis (HCC) Additional History: Transfer from outside hospital. Concern for small bowel obstruction and peritoneal carcinomatosis: Cytology of ascites fluid at OSH returned suggestive of metastatic carcinoma, suspected colonic source. ADDITIONAL CLINICAL INFORMATION: Ordering Provider Reason For Exam: rule out SBO and HCC, po contrast and iv COMPARISON: None. TECHNIQUE: CT of the chest, abdomen and pelvis with 100 mL Isovue intravenous contrast. Coronal and sagittal reformatted images were submitted. FINDINGS: Lower neck: Left upper extremity PICC line with tip terminating in the superior SVC with thrombus noted in the SVC just distal to the tip of the catheter. Enteric tube with tip terminating in the the gastric body. Lungs: Trace right greater than left pleural effusions. There is atelectasis in the inferior most aspect of the right upper lobe and in the right lower lobe. Pleural spaces: Trace right pleural effusion is present. There is no pneumothorax. Mediastinum: The heart size is normal. No pericardial thickening or effusion. No tracheal collapse or deviation. No mediastinal or hilar lymphadenopathy. Hepatobiliary: Nodular shrunken appearance of the liver with moderate volume ascites throughout the abdomen and pelvis compatible with cirrhosis. Subcentimeter hypoattenuating focus in segment 4A (series 3 image 89) may represent cyst, too small to characterize. Postcholecystectomy. There is no intra or extrahepatic bile duct dilatation. The portal vein is patent. Pancreas: Normal without peripancreatic fluid collection. Spleen: Normal attenuation without mass. Adrenal glands: normal : Normal appearance of the kidneys with symmetric parenchymal enhancement. Scattered simple cysts in bilateral kidneys. Multiple subcentimeter para-aortic lymph nodes. Multiple subcentimeter mesenteric lymph nodes adjacent to the ileocecal valve. The bladder is nondistended. GI: There is oral contrast visualized in the small bowel with mildly dilated loops of duodenum and jejunum measuring up to 3.2 cm with caliber change in the distal ileum (series 3 image 156), distal to this point there is decompressed distal ileum and a decompressed colon. There is also an adjacent inflamed loop of small bowel (series 3 image 189). The findings are suggestive of ileus or low-grade partial small bowel obstruction. The appendix is normal. Colonic diverticulosis without diverticulitis. Contrast visualized in the colon and rectum likely from previous oral contrast administered and outside hospital. Vascular: Thrombus in the superior vena cava measuring 1.3 cm in maximal thickness (series 3 image 51) just distal to the left upper extremity PICC. Large thrombus measuring 6 mm in maximal diameter within the superior mesenteric vein (series 3 image 135). The portal vein and splenic vein are patent. Scattered atherosclerotic calcifications of the aorta and its branches. Bones: Multilevel degenerative changes in the spine. Procedure Note Jami Pfeiffer MD - 08/21/2024 PROCEDURE: CT CHEST ABDOMEN PELVIS W CONT DATE/TIME OF EXAM: 08/20/2024 3:46 PM CLINICAL INFORMATION: None relevant/not provided if blank. Indication: C78.6: Peritoneal carcinomatosis (HCC) Additional History: Transfer from outside hospital. Concern for smallbowel obstruction and peritoneal carcinomatosis: Cytology of ascites fluid atOSH returned suggestive of metastatic carcinoma, suspected colonic source. ADDITIONAL CLINICAL INFORMATION: Ordering Provider Reason For Exam: rule out SBO and HCC, po contrastand iv COMPARISON: None. TECHNIQUE: CT of the chest, abdomen and pelvis with 100 mL Isovue intravenous contrast. Coronal and sagittal reformatted images were submitted. FINDINGS: Lower neck: Left upper extremity PICC line with tip terminating in the superior SVC with thrombus noted in the SVC just distal to the tip ofthe catheter. Enteric tube with tip terminating in the the gastric body. Lungs: Trace right greater than left pleural effusions. There is atelectasis in the inferior most aspect of the right upper lobe and inthe right lower lobe. Pleural spaces: Trace right pleural effusion is present. There is no pneumothorax. Mediastinum: The heart size is normal. No pericardial thickening or effusion. No tracheal collapse or deviation. No mediastinal or hilar lymphadenopathy. Hepatobiliary: Nodular shrunken appearance of the liver with moderate volume ascites throughout the abdomen and pelvis compatible withcirrhosis. Subcentimeter hypoattenuating focus in segment 4A (series 3 image 89)may represent cyst, too small to characterize. Postcholecystectomy. There isno intra or extrahepatic bile duct dilatation. The portal vein is patent. Pancreas: Normal without peripancreatic fluid collection. Spleen: Normal attenuation without mass. Adrenal glands: normal : Normal appearance of the kidneys with symmetric parenchymal enhancement. Scattered simple cysts in bilateral kidneys. Multiple subcentimeter para-aortic lymph nodes. Multiple subcentimeter mesenteric lymph nodes adjacent to the ileocecal valve. The bladder isnondistended. GI: There is oral contrast visualized in the small bowel with mildly dilated loops of duodenum and jejunum measuring up to 3.2 cm withcaliber change in the distal ileum (series 3 image 156), distal to this pointthere is decompressed distal ileum and a decompressed colon. There is also an adjacent inflamed loop of small bowel (series 3 image 189). The findings are suggestive of ileus or low-grade partial small bowel obstruction.The appendix is normal. Colonic diverticulosis without diverticulitis.Contrast visualized in the colon and rectum likely from previous oral contrast administered and outside hospital. Vascular: Thrombus in the superior vena cava measuring 1.3 cm in maximal thickness (series 3 image 51) just distal to the left upper extremityPICC. Large thrombus measuring 6 mm in maximal diameter within the superior mesenteric vein (series 3 image 135). The portal vein and splenic veinare patent. Scattered atherosclerotic calcifications of the aorta and its branches. Bones: Multilevel degenerative changes in the spine. IMPRESSION: 1.Mildly dilated loops of duodenum and jejunum measuring up to 3.2 cmwith air-fluid levels, gradual caliber change in the distal ileum, with decompressed ileum and colon distally from this point may represent low-grade partial obstruction. Contrast is visualized in the colon and rectum likely from previous oral contrast administered at outsidehospital. There is a segment of inflamed small bowel just proximal to this area. 2.Soft tissue nodularity throughout the mesentery representingperitoneal carcinomatosis. 3.Thrombus measuring 6 mm in maximal diameter within the superior mesenteric vein. The portal and splenic vein are patent. 4.Thrombus in the superior vena cava measuring 1.2 cm in maximumthickness just distal to left upper extremity PICC tip terminates in the superior SVC. 5.Nodular shrunken appearance of liver with moderate volume ascites throughout the abdomen and pelvis compatible with cirrhosis. 6.Trace right greater than left pleural effusions. These findings were discussed in detail with the patient's careprovider, Dr. Franklin by Dr. Deni Franklin via telephone at 9:32 PM on 08/20/2024with readback comprehension and verification. > Dictated by Divine Pruett MD, (surgeon/president). > Dictated by Divine Pruett MD (Maintainer Plant) 08/21/2024 7:07 AM IEver MD have personally reviewed and interpreted this examination/study. > Interpreting Provider: Ever Pfeiffer MD on 08/21/2024 1:52 PM Leia Pelaez MD CT ORDERABLES * XR Abdomen Kub Portable (08/20/2024 10:51 AM ECHO VASCULAR TECHNOLOGIST) Anatomical Region Laterality Modality Abdomen Digital Radiogra phy 08/21/2024 7:25 AM ECHO VASCULAR TECHNOLOGIST Impressions 08/21/2024 8:54 AM ECHO VASCULAR TECHNOLOGIST IMPRESSION: Mildly dilated small bowel which may be due to mild partial small bowel obstruction versus ileus. Report dictated by Juan Ortiz MD, (surgeon/president). Jaylin Weber MD have personally reviewed and interpreted this examination/study. > Interpreting Provider: Jaylin Foster MD on 08/21/2024 8:54 AM Narrative 08/21/2024 8:54 AM ECHO VASCULAR TECHNOLOGIST PROCEDURE: XR ABDOMEN KUB PORTABLE, DATE/TIME OF EXAM: 08/20/2024 10:51 AM, LOCATION [facility] INDICATION: C78.6: Peritoneal carcinomatosis (HCC) ADDITIONAL CLINICAL INFORMATION: Ordering Provider Reason For Exam: Technologist Note: Additional: COMPARISON: None. FINDINGS: The tip of the NG tube is in the gastric body. The side-port is at or above the gastroesophageal junction. Consider advancing. Clips are seen in the right upper quadrant. There is mild dilatation of small bowel. The colon is decompressed. No pneumatosis or portal venous gas is evident. There are no pathologic calcifications. No acute osseous abnormality. Procedure Note Jaylin Foster MD - 08/21/2024 PROCEDURE: XR ABDOMEN KUB PORTABLE, DATE/TIME OF EXAM: 0:51 AM, LOCATION [facility] INDICATION: C78.6: Peritoneal carcinomatosis (HCC) ADDITIONAL CLINICAL INFORMATION: Ordering Provider Reason For Exam: Technologist Note: Additional: COMPARISON: None. FINDINGS: The tip of the NG tube is in the gastric body. The side-port is at orabove the gastroesophageal junction. Consider advancing. Clips are seen in the right upper quadrant. There is mild dilatation of small bowel. The colon is decompressed. No pneumatosis or portal venous gas is evident. There are no pathologic calcifications. No acute osseous abnormality. IMPRESSION: Mildly dilated small bowel which may be due to mild partial small bowel obstruction versus ileus. Report dictated by Juan Ortiz MD, (surgeon/president). Jaylin Weber MD have personally reviewed and interpreted this examination/study. > Interpreting Provider: Jaylin Foster MD on 08/21/2024 8:54 AM Leia Pelaez MD DIAGNOSTIC IMAGING O RDERABLES * CULTURE BLOOD (08/19/2024 10:59 PM ECHO VASCULAR TECHNOLOGIST) Only the most recent of2 resultswithin the time period is included. Culture No growth day 5 MARY 08/25/2024 2:31 AM ECHO VASCULAR TECHNOLOGIST [facility] MICROBIOLOG[facility] Blood PERIPHERAL BLOOD / Unknown Venipuncture / Unknown 08/19/2024 10:59 PM ECHO VASCULAR TECHNOLOGIST 08/19/2024 11:04 PM ECHO VASCULAR TECHNOLOGIST Nicola Guerrero MD LAB - MICROBIOLOGY O RDERABLES [facility] [address] [place] [address], [facility] [phone] * LACTIC ACID BLOOD (08/19/2024 10:16 PM ECHO VASCULAR TECHNOLOGIST) Lactic Acid-Stat 1.1 <=2.0 mmol/L 08/19/2024 11:29 PM ECHO VASCULAR TECHNOLOGIST [facility] Blood BLOOD SPECIMEN / Unknown Venipuncture / Unknown 08/19/2024 10:16 PM ECHO VASCULAR TECHNOLOGIST 08/19/2024 11:03 PM ECHO VASCULAR TECHNOLOGIST Nicola Guerrero MD LAB - CHEMISTRY ORDE RABLES [facility] [address] [place] [address], [facility] [phone] Care Teams Railroad Crane Operator Relationship Specialty Start Date End Date Ruth Chavez March, MANAGING MANAGER-TECHNICAL SUPPORT 1 SOFTWARE ENGINEER [address] [place] [address] PCP - General Nurse Practitioner 08/22/24 Cyndee Jacobsen DO [address] [place] [address] Resident Hematology and Oncology 09/04/24
--- OUTSIDE RECORDS SUMMARY | 2024-11-27 18:33 | XMS_ITS ---
Author Organization [facility] Address [address] [place] [address] Care Team Providers Care Studio Manager Name Role Phone Ruth Chavez MarchN-GRADUATION COACH Primary Care Provid er Cyndee Jacobsen DO Unavailable [phone] Active Problems Problem Noted Date Diagnosed Date [...] Primary erectile dysfunction 06/12/2022 Spinal stenosis 02/25/2021 Current Oncology Plans No current plan information found. Past Plans ONCOLOGY TREATMENT Plan Name Start Date Discontinue Date Treatment Medications Discontinue Reason Plan Provider Cycles COLON MET (LEUCOVORIN FLUOROURACIL OXALIPLATIN) Q14 DAYS (MFOLFOX 6) 10/02/20 24 10/18/2024 fluorouracil (Adrucil)leuco vorin (Wellcovorin)o xaliplatin (Eloxatin) Infusion Patient Preference Mattie Tong MD Treatment not started Radiation Treatments * No radiation treatments are documented for this patient in [facility]. Treatments may have been administered in another system. Resolved Problems Problem Noted Date Diagnosed Date Resolved Date Sepsis, due to unspecified o rganism, unspecified whether acute organ dysfunction present 08/17/2024 09/20/2024
--- OUTSIDE RECORDS SUMMARY | 2024-11-27 18:33 | XMS_ITS | Clinical Summary ---
Author Organization [facility] Address [address] [place] [address] Care Team Providers Care Zipper Setter Lockstitch Name Role Phone Ruth Chavez March [employer]ADEMARK PARALE[employer]TREE TRIMMING SUPERVISOR Primary Care Provid er Cyndee Jacobsen DO Unavailable [phone] Source Comments [facility],non-owned Affiliates and Associated Physician Practices is amultiple site organization consisting of ambulatory clinics and hospital sitesin [place], [place], [place] and [place]. This disclosure is being madepursuant to the Care Everywhere program and may not contain all information available regarding this patient. Last updated 18.[facility] Allergies No known active allergies Medications * [...] mouth once daily 30 tablet 08/26/2024 Active polyethylene glycol 3350 (Miralax) 17 [...] whether acute organ dysfunction present 08/17/2024 09/20/2024 Encounters Date Type Department Care Team Description 11/24/2024 Orders Only [facility] - Hematology/[place] [address] [place] [phone] Elizabeth Newby, [employer] TRIMMING SUPERVISOR Malignant neoplasm of ascending colon (HCC) 11/23/[address] [facility] - Hematology/[place] [address] [place] [phone] Elizabeth Newby, [employer] TRIMMING SUPERVISOR 10/24/[address] [facility] - Hematology/Onco [place]y [address] [place] [phone] Mattie Tong MD Follow-up 10/23/[address] [facility] - Hematology/[place] [address] [place] [phone] Elizabeth Newby, [employer] TRIMMING SUPERVISOR 10/17/2024 9:40 AM DAG SPRAYER Office Visit [facility] - Hematology/Onco logy [address] [place] [phone] Cyndee Jacobsen DO Malignant neoplasm of ascending colon (HCC) (Primary Dx); Peritoneal carcinomatosis (HCC); Malignant neoplasm of colon, unspecified part of colon (HCC) 10/17/2024 8:55 AM DAG SPRAYER - 10/17/2024 11:59 PM DAG SPRAYER Hospital Encounter [facility] [address] [place] [address] Unknown, Provider Discharge Disposition: Home or Self Care 10/17/2024 Travel 10/12/2024 Orders Only [facility] - Hematology/Onco logy [address] [place] [phone] Mattie Tong MD 10/09/2024 2:30 PM DAG SPRAYER Office Visit [facility] - GI [address] [place] [phone] Wayne Doss MD Elbeshbeshy, Hany Ahmed, MD [...] esophageal varices type (HCC); Anticoagulant long-term use 10/09/2024 Travel 09/28/2024 5:35 PM DAG SPRAYER - 09/28/2024 5:39 PM DAG SPRAYER Emergency [facility] EMERGENCY DEPARTMENT [address] [place] [phone] Discharge Disposition: Left Against Medical Advice/Discontinued Care 09/28/2024 Travel 09/26/2024 1:00 PM DAG SPRAYER Office [facility] - Hematology/Onco logy [address] [place] [phone] Newby, Elizabeth, [employer] TRIMMING SUPERVISOR Malignant neoplasm of ascending colon (HCC) (Primary Dx); Anemia, unspecified type 09/26/2024 Travel 09/25/2024 Orders Only [facility] - Hematology/Onco logy [address] [place] [phone] Elizabeth Newby, [employer] TRIMMING SUPERVISOR 09/25/2024 Orders Only [facility] - Hematology/Onco logy [address] [place] [phone] Elizabeth Newby, [employer] TRIMMING SUPERVISOR 09/25/2024 Orders Only [facility] - Hematology/Onco logy [address] [place] [address] Mattie Tong MD Malignant neoplasm of ascending colon (HCC) 09/21/2024 5:57 AM DAG SPRAYER - 09/21/2024 9:29 AM DAG SPRAYER Hospital Encounter [facility] ANDRES OP [address] [place] [phone] Víctor Hooper MD Farmer, Adam D, MD [facility] Discharge Disposition: Home or Self Care 09/21/2024 Travel 09/20/2024 Orders Only [facility] - Hematology/Onco logy [address] [place] [phone] Cyndee Jacobsen DO Peritoneal carcinomatosis (HCC); Malignant neoplasm of colon, unspecified part of colon (HCC) 09/19/2024 10:20 AM DAG SPRAYER Office Visit [facility] - Hematology/Onco logy [address] [place] [address] Víctor Hooper MD Weidenbaum, Chloe, DO Malignant neoplasm of ascending colon (HCC) (Primary Dx); Peritoneal carcinomatosis (HCC); Malignant neoplasm of colon, unspecified part of colon (HCC) 09/19/2024 Travel 09/15/2024 Telephone [facility] - Hematology/Onco logy [address] [place] [address] Cyndee Jacobsen DO Appointment (Spoke with pt abt appt on Wednesday09/19/24 at 10:20 AM. Told pt there is free engraver letter parking and to check in at desk at right upon arrival before going to second floor. Confirmed. ) 09/11/2024 Telephone Transitional Care at [facility] [address] [place] [address] Piper Morrison RNsignwriter 09/04/2024 9:48 AM DAG SPRAYER Anesthesia Event [facility] ENDOSCOPY [address] [place] [phone] Imelda Cm MD 09/04/2024 9:19 AM DAG SPRAYER - 09/04/2024 9:49 AM DAG SPRAYER Surgery [facility] ENDOSCOPY [address] [place] [address] Ian Ellsworth MD ESOPHAGOGASTRODUODENOSCOPY (EGD) DIAGNOSTIC 09/02/2024 10:53 PM DAG SPRAYER - 09/07/2024 11:18 AM DAG SPRAYER Hospital Encounter [facility] Early Admission Unit [address] [place] [address] Sylvester [place] MD Purdy, Justin, MD Morreale, Peter J III, MD Emergency Medicine Discharge Disposition: Home or Self Care 09/02/2024 Travel 2024 Telephone [facility] - Hematology/Onco logy [address] [place] [phone] Cyndee Jacobsen DO Appointment (LVM for pt abt appt on Wednesday09/05/24 at 10:00 AM. Told pt there is free engraver letter parking and to check in at desk on right upon arrival then go to second floor. Also told pt happy birthday because it is his bday today. ) 08/31/2024 Telephone [facility] - GI [address] [place] [address] Jake Mathis MD Results 08/29/2024 Lab Requisition [facility] [address] [place] [address] Luann Hand MD from Last 3 Months Social History Tobacco Use Types Packs/Day Years [...] and heating? Not hard at all 09/04/2024 [facility] [place] of Occupat ional Health - Occupational Stress [...] any time in the past 12 [address] [place], were you homeless or living in a senior living (including now)? No 09/04/2024 Sex and Gender Information Value Date Recorded Sex Assigned at Not on file Gender Identity Not on file Sexual Orientation Not on file Last Filed Vital Signs Vital Sign Reading Time Taken Comments Blood Pressure 110/71 10/17/2024 9:28 AM DAG SPRAYER Pulse 84 10/17/2024 9:28 AM DAG SPRAYER Temperature 36.7 C (98 F) 10/17/2024 9:28 AM DAG SPRAYER Respiratory Rate 20 10/17/2024 9:28 AM DAG SPRAYER Oxygen Saturation 99% 10/17/2024 9:28 AM DAG SPRAYER Inhaled Oxygen Concentration - - Weight 91.4 kg (201 lb 8 oz) 10/17/2024 9:28 AM DAG SPRAYER Height 160 cm (5' 2.99 ) 10/17/2024 9:28 AM DAG SPRAYER Body Mass Index 35.7 10/17/2024 9:28 AM DAG SPRAYER Plan of Treatment Upcoming Encounters Date Type Department Care Team (Late st Contact Info) Description 05/28/2025 2:00 PM CDT Office Visit [facility] - GI [address] [place] [phone] Herber Schrader MD [address] [place] [address] [place] [address] Health Maintenance Due Date Last Done Comments COLOGUARD (AGES 45-75) - COLON CA SCREENING 1954 CT COLONOGRAPHY - COLON CA SCREENING 1955 FIT - COLON CA SCREENING 1955 FLEX SIG - COLON CA SCREENING 1954 DTAP/TDAP/TD VACCINES (1 - Tdap) 1973 PNEUMOCOCCAL VACCINE 50+ (1 of 2 - PCV) 1973 ZOSTER VACCINE (1 of 2) 2004 HEPATITIS B VACCINE (1 of 3 - Risk 3-dose series) 2014 Respiratory Syncytial Virus (RSV) Vaccine Pt: or over 60 yrs (1 - Risk 60-74 years 1-dose series) 2014 AAA SCREENING 2019 COVID-19 VACCINE ( - season) 2024 INFLUENZA VACCINE (#1) 2024 DIABETES RETINOPATHY SCREENING 09/03/2024 DIABETES-FOOT EXAM WITH MONOFILAMENT 09/03/2024 DEPRESSION SCREENING 10/11/2024 DIABETES - URINE PROTEIN SCREENING 10/11/2024 MEDICARE AWV CALENDAR YEAR 2024 DIABETES-HGB A1C 11/23/2024 08/23/2024 DIABETES-SERUM CREATININE 10/17/20252024, 09/28/2024, 09/06/2024, Additional history exists COLON MONITORING 08/23/2034 08/23/2024, 08/23/2024 COLONOSCOPY - COLON CA SCREENING 08/23/2034 08/23/2024, 08/23/2024 Colorectal Cancer Screening 08/23/2034 HEPATITIS C SCREENING Completed 08/21/2024 HIB VACCINE Aged Out No longer eligi ble based on patient's age to complete this topic HPV VACCINE Aged Out No longer eligi ble based on patient's age to complete this topic MENINGOCOCCAL (Group B) VACCINE Aged Out No longer eligible based on patient's age to complete this topic MENINGOCOCCAL VACCINE Aged Out No krissy tommy eligible based on patient's age to complete this topic Goals Goal Patient Goal Type Associated Problems Recent Progress Patient-Stated? Author Medication Management General On track( 024 2:47 PM DAG SPRAYER) No Deborah Christian, RN Note: Expected end date: ongoing Interventions: Take all medications as prescribed Let your doctor know right away about any changes in your medications Make sure to request a refill of your medication at least one week prior to your last dose Medical Devices Implanted Type Area [employer] Production Associate Device Identifier Shelf Expiration Date Model / Serial / Lot Port Implinfn Powerport Clrvu Argd La Implanted:Qty: 1 on 09/21/2024 at [facility] [employer] 01/08/2026 [id number] / / [id number] Procedures Procedure Name Priority Date/Time Associated Diagnosis Comments MAGNESIUM BLOOD STAT 10/17/2024 9:09 AM DAG SPRAYER PHOSPHORUS BLOOD STAT 10/17/2024 9:09 AM DAG SPRAYER CBC W AUTO DIFFERENTIAL STAT 10/17/2024 9:09 AM DAG SPRAYER COMPREHENSIVE METABOLIC PANEL STAT 10/17/2024 9:09 AM DAG SPRAYER IRON + TRANSFERRIN PANEL Routine 10/17/2024 9:09 AM DAG SPRAYER Anemia, unspecified type FERRITIN Routine 10/17/2024 9:09 AM DAG SPRAYER Anemia, unspecified type PT-INR [facility] STAT 09/28/2024 10:46 AM DAG SPRAYER COMPREHENSIVE METABOLIC PANEL STAT 09/28/2024 10:46 AM DAG SPRAYER CBC W AUTO DIFFERENTIAL STAT 09/28/2024 10:46 AM DAG SPRAYER URINALYSIS W/MICROSCOPIC REFLEX TO CULTURE STAT 09/28/2024 10:46 AM DAG SPRAYER IR GILBERTO CATH INSERT Routine 09/21/2024 8:57 AM DAG SPRAYER Peritoneal carcinomatosis (HCC) Malignant neoplasm of colon, unspecified part of colon (HCC) GLUCOSE - POINT OF CARE Routine 09/21/2024 6:48 AM DAG SPRAYER PT-INR [facility] Routine 09/07/2024 12:23 AM DAG SPRAYER PTT [facility] Timed 09/07/2024 12:23 AM DAG SPRAYER Ascites due to alcoholic cirrhosis (HCC) CBC W/O DIFFERENTIAL AM Draw 09/07/2024 12:23 AM DAG SPRAYER PTT [facility] Timed 09/06/2024 5:28 PM DAG SPRAYER Thrombosis of superior vena cava (HCC) GLUCOSE - POINT OF CARE Routine 09/06/2024 10:06 AM DAG SPRAYER PTT [facility] Routine 09/06/2024 9:27 AM DAG SPRAYER GLUCOSE - POINT OF CARE Routine 09/06/2024 5:25 AM DAG SPRAYER BASIC METABOLIC PANEL (CALCIUM TOTAL) AM Draw 09/06/2024 12:47 AM DAG SPRAYER GLUCOSE - POINT OF CARE Routine 09/05/2024 9:27 PM DAG SPRAYER GLUCOSE - POINT OF CARE Routine 09/05/2024 6:27 PM DAG SPRAYER GLUCOSE - POINT OF CARE Routine 09/05/2024 12:35 PM DAG SPRAYER GLUCOSE - POINT OF CARE Routine 09/05/2024 6:05 AM DAG SPRAYER CBC W/O DIFFERENTIAL AM Draw 09/05/2024 1:02 AM DAG SPRAYER BASIC METABOLIC PANEL (CALCIUM TOTAL) AM Draw 09/05/2024 1:02 AM DAG SPRAYER GLUCOSE - POINT OF CARE Routine 09/05/2024 12:05 AM DAG SPRAYER GLUCOSE - POINT OF CARE Routine 09/04/2024 5:51 PM DAG SPRAYER GLUCOSE - POINT OF CARE Routine 09/04/2024 12:36 PM DAG SPRAYER CO ED EGD FLEX TRANSORAL DX 09/04/2024 9:43 AM DAG SPRAYER Melena EGD Routine 09/04/2024 9:26 AM DAG SPRAYER GLUCOSE - POINT OF CARE Routine 09/04/2024 9:13 AM DAG SPRAYER GLUCOSE - POINT OF CARE Routine 09/04/2024 6:12 AM DAG SPRAYER BASIC METABOLIC PANEL (CALCIUM TOTAL) AM Draw 09/04/2024 12:22 AM DAG SPRAYER Melena CBC W/O DIFFERENTIAL AM Draw 09/04/2024 12:22 AM DAG SPRAYER Melena PHOSPHORUS BLOOD Routine 09/04/2024 12:2 2 AM DAG SPRAYER Melena Malignant neoplasm of colon, unspecified part of colon (HCC) Abdominal pain, generalized GLUCOSE - POINT OF CARE Routine 09/04/2024 12:11 AM DAG SPRAYER GLUCOSE - POINT OF CARE Routine 09/03/2024 6:14 PM DAG SPRAYER GLUCOSE - POINT OF CARE Routine 09/03/2024 12:52 PM DAG SPRAYER BLOOD TYPE VERIFICATION STAT 09/03/2024 9:[address] ABDOMEN PELVIS W CONTRAST STAT 09/02/2024 10:39 PM DAG SPRAYER Melena Malignant neoplasm of colon, unspecified part of colon (HCC) Abdominal pain, generalized TYPE + SCREEN PANEL STAT 09/02/2024 9 :38 PM DAG SPRAYER PT-INR [facility] STAT 09/02/2024 9:38 PM DAG SPRAYER COMPREHENSIVE METABOLIC PANEL STAT 09/02/2024 9:38 PM DAG SPRAYER CBC W AUTO DIFFERENTIAL STAT 09/02/2024 9:38 PM DAG SPRAYER ENDOSCOPY, COLON, DIAGNOSTIC Routine 08/23/2024 1:34 PM DAG SPRAYER HEMOGLOBIN A1C Routine 08/23/2024 8:38 AM DAG SPRAYER HEPATITIS C AB SCREEN RFLX NAAT QUANT Routine 08/21/2024 7:37 AM DAG SPRAYER from Last 3 Months or Most Recently Relevant to Health Maintenance Results * (ABNORMAL) CBC W AUTO DIFFERENTIAL (10/17/2024 9:09 AM DAG SPRAYER) Only the most recent of3 resultswithin the time period is included. WBC 12.2(H) 4.0 - 10.7 x10E9/L 10/17/2024 9:35 AM [facility] RBC Count 3.78(L) 4.30 - 5.80 x10E12/L 10/17/2024 9:35 AM [facility] Hemoglobin 11.4(L) 13.3 - 17.5 g/dL 10/17/2024 9:35 AM [facility] Hematocrit 33.8(L) 38.7 - 51.1 % 10/17/2024 9:35 AM [facility] MCV 89.4 80.0 - 98.0 fL 10/17/2024 9:35 AM [facility] MCH 30.2 26.7 - 33.6 pg 10/17/2024 9:35 AM [facility] MCHC 33.7 31.7 - 36.3 g/dL 10/17/2024 9:35 AM [facility] RDW-CV 13.1 11.3 - 14.8 % 10/17/2024 9:35 AM [facility] Platelet Count 440(H) 150 - 420 x10E9/L 10/17/2024 9:35 AM [facility] MPV 8.9 7.8 - 11.4 fL 10/17/2024 9:35 AM [facility] Preliminary Absolute Neutrophil 8.74(H) 1.60 - 7.50 x10E9/L 10/17/2024 9:35 AM [facility] Neutrophil % 71.8 41.0 - 74.0 % 10/17/2024 9:35 AM [facility] Lymphocyte % 17.1 17.0 - 47.0 % 10/17/2024 9:35 AM [facility] Monocyte % 8.4 3.0 - 11.0 % 10/17/2024 9:35 AM [facility] Eosinophil % 0.8 0.0 - 7.0 % 10/17/2024 9:35 AM [facility] Basophil % 0.7 0.0 - 1.6 % 10/17/2024 9:35 AM [facility] Immature Granulocytes % 1.2(H) 0.0 - 1.0 % 10/17/2024 9:35 AM [facility] Neutrophil Absolute 8.74(H) 1.60 - 7.50 x10E9/L 10/17/2024 9:35 AM [facility] Lymphocyte Absolute 2.08 1.00 - 4.40 x10E9/L 10/17/2024 9:35 AM [facility] Monocyte Absolute 1.02(H) 0.15 - 1.00 x10E9/L 10/17/2024 9:35 AM [facility] Eosinophil Absolute 0.10 0.00 - 0.60 x10E9/L 10/17/2024 9:35 AM [facility] Basophil Absolute 0.08 0.00 - 0.13 x10E9/L 10/17/2024 9:35 AM [facility] Blood BLOOD SPECIMEN / Unknown Venipuncture / Unknown 10/17/2024 9:09 AM DAG SPRAYER 10/17/2024 9:20 AM [facility] Mattie Tong MD LAB - HEMATOLOGY ORD ERABLES [facility] [address] [place] [address], [facility] [phone] * (ABNORMAL) COMPREHENSIVE METABOLIC PANEL (10/17/2024 9:09 AM [facility]) Only the most recent of3 resultswithin the time period is included. BUN 19 7 - 26 mg/dL 10/17/2024 9:59 AM [facility] Creatinine 1.39(H) 0.71 - 1.16 mg/dL 10/17/2024 9:59 AM [facility] Sodium 132(L) 136 - 145 mmol/L 10/17/2024 9:59 AM [facility] Potassium 4.9(H) 3.5 - 4.5 mmol/L 10/17/2024 9:59 AM [facility] Chloride 103 98 - 107 mmol/L 10/17/2024 9:59 AM [facility] CO2 20(L) 22 - 29 mmol/L 10/17/2024 9:59 AM [facility] Glucose 146(H) 70 - 99 mg/dL 10/17/2024 9:59 AM [facility] Calcium 9.4 8.4 - 10.2 mg/dL 10/17/2024 9:59 AM [facility] Protein Total 7.9 6.0 - 8.3 g/dL 10/17/2024 9:59 AM [facility] Albumin 3.3(L) 3.4 - 5.0 g/dL 10/17/2024 9:59 AM [facility] Bilirubin Total 0.6 0.2 - 1.2 mg/dL 10/17/2024 9:59 AM [facility] Alkaline Phosphatase 101 40 - 150 U/L 10/17/2024 9:59 AM [facility] ALT 18 5 - 55 U/L 10/17/2024 9:59 AM [facility] AST 15 5 - 34 U/L 10/17/2024 9:59 AM [facility] Anion Gap 9 6 - 16 10/17/2024 9:59 AM [facility] BUN/Creatinine Ratio 14 7 - 23 10/17/2024 9:59 AM [facility] Osmolality Calculated 279 275 - 295 mOsm/kg 10/17/2024 9:59 AM [facility] Albumin/Globulin Ratio 0.7(L) 1.1 - 2.3 10/17/2024 9:59 AM [facility] eGFR by CKD-EPI 55(L) >=90 mL/min/1.7 3 m2 10/17/2024 9:59 AM [facility] Blood BLOOD SPECIMEN / Unknown Venipuncture / Unknown 10/17/2024 9:09 AM DAG SPRAYER 10/17/2024 9:20 AM DAG SPRAYER Mattie Tong MD LAB - CHEMISTRY TOM JACOBSON Performing Organization Address City/[facility]/ZIP Co de Phone Number [address] [address], [facility] [phone] * PHOSPHORUS BLOOD (10/17/2024 9:09 AM DAG SPRAYER) Only the most recent of2 resultswithin the time period is included. Phosphorus 4.1 2.8 - 5.1 mg/dL 10/17/2024 9:59 AM [facility] Blood BLOOD SPECIMEN / Unknown Venipuncture / Unknown 10/17/2024 9:09 AM DAG SPRAYER 10/17/2024 9:20 AM DAG SPRAYER Mattie Tong MD LAB - CHEMISTRY TOM JACOBSON [address] [address], [facility] [phone] * MAGNESIUM BLOOD (10/17/2024 9:09 AM DAG SPRAYER) Magnesium 1.6 1.6 - 2.6 mg/dL 10/17/2024 9:59 AM [facility] Blood BLOOD SPECIMEN / Unknown Venipuncture / Unknown 10/17/2024 9:09 AM DAG SPRAYER 10/17/2024 9:20 AM DAG SPRAYER Mattie Tong MD LAB - CHEMISTRY TOM JACOBSON [address] [address], [place] [phone] * IRON + TRANSFERRIN PANEL (10/17/2024 9:09 AM DAG SPRAYER) Iron 58 50 - 175 ug/dL 10/17/2024 10:35 AM [facility] Transferrin 212 174 - 382 mg/dL 10/17/2024 10:35 AM [facility] Transferrin Saturation % 22 16 - 50 % 10/17/2024 10:35 AM [facility] TIBC Calculated 265 240 - 450 ug/dL 10/17/2024 10:35 AM [facility] Blood BLOOD SPECIMEN / Unknown Venipuncture / Unknown 10/17/2024 9:09 AM DAG SPRAYER 10/17/2024 9:16 AM DAG SPRAYER Elizabeth Newby APRN-TREE TRIMMING SUPERVISOR LAB - CHEMISTRY ORD MARGARITOBLES Performing Organization Address City/[facility]/ZIP Co de Phone Number [address] [address], [place] [phone] * FERRITIN (10/17/2024 9:09 AM DAG SPRAYER) Ferritin 98 22 - 275 ng/mL 10/17/2024 10:35 AM [facility] Blood BLOOD SPECIMEN / Unknown Venipuncture / Unknown 10/17/2024 9:09 AM DAG SPRAYER 10/17/2024 9:16 AM DAG SPRAYER Elizabeth Newby APRN-TREE TRIMMING SUPERVISOR LAB - CHEMISTRY ORD ERABLES [address] [address], [place] [phone] * (ABNORMAL) PT-INR [facility] (09/28/2024 10:46 AM DAG SPRAYER) Only the most recent of3 resultswithin the time period is included. PT 14.9(H) 12.1 - 14.8 Seconds 09/28/2024 11:19 AM [facility] INR 1.2 See Comment 09/28/2024 11:19 AM [facility] Comment:The suggested therap eutic range for standard coumadin (warfarin) therapy is an INR of 2.0-3.0. For high-risk patients (Mechanical Mitral Valve Prosthesis, etc.), the suggested prophylactic therapeutic range is an INR of 2.5-3.5. Blood BLOOD SPECIMEN / Unknown Venipuncture / Unknown 09/28/2024 10:46 AM DAG SPRAYER 09/28/2024 10:50 AM [facility] Trang Wheatley Buitrago TRADEMARK PAR[employer]GAL-TREE TRIMMING SUPERVISOR LAB - COAGULA TION ORDERABLES Performing Organization Address City/State/[facility] Co de Phone Number [facility] [address] [place] [address], [facility] [phone] * (ABNORMAL) URINALYSIS W/MICROSCOPIC REFLEX TO CULTURE (09/28/2024 10:46 AM DAG SPRAYER) Color UA Straw Straw, Yellow 09/28/2024 11:02 AM [facility] Clarity UA Clear Clear 09/28/2024 11:02 AM [facility] Specific [place] UA 1.004(L) 1.005 - 1.030 09/28/2024 11:02 AM [facility] pH UA 6.0 5.0 - 8.0 pH 09/28/2024 11:02 AM [facility] Protein UA Negative Negative 09/28/2024 11:02 AM [facility] Glucose UA Negative Negative 09/28/2024 11:02 AM [facility] Ketone UA Negative Negative 09/28/2024 11:02 AM [facility] Bilirubin UA Negative Negative 09/28/2024 11:02 AM [facility] Blood UA Negative Negative 09/28/2024 11:02 AM [facility] Nitrite UA Negative Negative 09/28/2024 11:02 AM [facility] Leukocyte Esterase Negative Negative 09/28/2024 11:02 AM [facility] Urobilinogen UA Negative Negative mg/dL 09/28/2024 11:02 AM [facility] RBC UA 0-2 None Seen, 0-2, 3-5 /HPF 09/28/2024 11:02 AM [facility] WBC UA 0-5 None Seen, 0-5 /HPF 09/28/2024 11:02 AM [facility] Squamous Epithelial Cells UA None Seen None Seen, 0-2, 3-5 /HPF 09/28/2024 11:02 AM [facility] Urine URINE SPECIMEN OBTAINED BY CLEAN CATCH PROCEDURE / Unknown Collection / Unknown 09/28/2024 10:46 AM DAG SPRAYER 09/28/2024 10:50 AM DAG SPRAYER [facility] - 09/28/2024 11:02 AM DAG SPRAYER Culture Not Indicated Trang Buitrago [employer]EM[employer] [facility] - URINALY SIS ORDERABLES Performing Organization Address City/State/[facility] Co de Phone Number [facility] [address] [place] [address], [facility] [phone] * IR Gilberto Cath Insert (09/21/2024 8:57 AM DAG SPRAYER) Anatomical Region Laterality Modality Chest X-Ray Angiograph y 09/21/2024 2:46 PM [facility]ER Impressions 09/21/2024 5:28 PM [facility]AG [facility]ER Impression: Successful placement of a single lumen 8 Danish x 26 cm chest power port via [...] evaluation, please review the evaluation forms in [facility]. For details on monitored clinical parameters during the intra-service sedation time, please review the procedure nurse documentation in [facility]. > Dictated by Titi Moulton (Associate Merchandise Planner) 09/21/2024 2:46 PM Lawanda Weber MD have personally reviewed and interpreted this examination/study. > Interpreting Provider: Lawanda Vergara MD on 09/21/2024 5:28 PM Narrative 09/21/2024 5:28 PM [facility] PROCEDURE: IR GILBERTO CATH INSERT DATE/TIME OF [...] chest. 3.Fluoroscopy-guided placement of single lumen 8 Danish x 26 cm chest power port via the right internal jugular vein. Fluoroscopic time: 0.8 minutes Procedure details: The procedure, risks, and possible complications were explained to the patient in detail and informed consent was obtained. The patient was placed supine on the angiography table. The right neck and upper chest were prepped and draped in the usual sterile manner. A wire fence builder film of chest was obtained, which was [...] associated with the procedure. Procedure Note Lawanda Vergara, DO - 09/21/2024 PROCEDURE: IR GILBERTO CATH [...] chest. 3.Fluoroscopy-guided placement of single lumen 8 Danish x 26 cm chestpower port via the right internal jugular vein. Fluoroscopic time: 0.8 minutes Procedure details: The procedure, risks, and possible complications were explained to the patient in detail and informed consent was obtained. The patient wasplaced supine on the angiography table. The right neck and upper chest were prepped and draped in the usual sterile manner. A wire fence builder film of chestwas obtained, which was unremarkable. [...] the procedure well [facility]. There were no immediate complicationsassociated with the procedure. Impression: Successful placement of a single lumen 8 Danish x 26 cmchest power port via the right internal jugular vein under ultrasound and fluoroscopic guidance, as described above. Note: Keep the dressing clean and dry for 5 days. Recommend port access after 5 days to minimize infection and allow better healing. Tia, Dr. Lawanda Vergara, was available to supervise [...] patient evaluation, please reviewthe evaluation forms in [facility]. For details on monitored clinical parameters during the intra-service sedation time, please review the procedurenurse documentation in [facility]. > Dictated by Titi Moulton (Associate Merchandise Planner) 09/21/2024 2:46 PM ILawanda MD have personally reviewed and interpreted this examination/study. > Interpreting Provider: Lawanda Vergara MD on 09/21/2024 5:28 PM Víctor Hooper MD IR ORDERABLES * (ABNORMAL) GLUCOSE - POINT OF CARE (09/21/2024 6:48 AM DAG SPRAYER) Only the most recent of15 resultswithin the time period is included. Glucose WB/POC 138(H) 70 - 99 mg/dL 09/21/2024 6:48 AM DAG SPRAYER [facility] Specimen Type Venous 09/21/2024 6:48 AM [facility] Blood BLOOD SPECIMEN / Unknown 09/21/2024 6:48 AM DAG SPRAYER 09/21/2024 6:48 AM DAG SPRAYER Víctor Hooper MD LAB - POINT OF CARE ORDERABLES Performing Organization Address City/[facility]/ZIP Co de Phone Number [address] [address], [facility] [phone] * (ABNORMAL) PTT [facility] (09/07/2024 12:23 AM DAG SPRAYER) Only the most recent of3 resultswithin the time period is included. APTT 68.3(H) 23.0 - 38.4 Seconds 09/07/2024 1:27 AM [facility] Comment:Suggested therapeuti c range for full dose I.V. unfractionated heparin therapy for venous thromboembolism is 71 to 109 seconds. Blood BLOOD SPECIMEN / Unknown Lab Venipuncture / Unknown 09/07/2024 12:23 AM DAG SPRAYER 09/07/2024 1:04 AM DAG SPRAYER Hilton Jackson III, MD LAB - COAGULATI ON ORDERABLES [address] [address], [facility] [phone] * (ABNORMAL) CBC W/O DIFFERENTIAL (09/07/2024 12:23 AM DAG SPRAYER) Only the most recent of3 resultswithin the time period is included. WBC 6.3 4.0 - 10.7 x10E9/L 09/07/2024 1:12 AM [facility] RBC Count 3.46(L) 4.30 - 5.80 x10E12/L 09/07/2024 1:12 AM [facility] Hemoglobin 10.7(L) 13.3 - 17.5 g/dL 09/07/2024 1:12 AM [facility] Hematocrit 32.1(L) 38.7 - 51.1 % 09/07/2024 1:12 AM [facility] MCV 92.8 80.0 - 98.0 fL 09/07/2024 1:12 AM [facility] MCH 30.9 26.7 - 33.6 pg 09/07/2024 1:12 AM [facility] MCHC 33.3 31.7 - 36.3 g/dL 09/07/2024 1:12 AM [facility] RDW-CV 12.5 11.3 - 14.8 % 09/07/2024 1:12 AM [facility] Platelet Count 339 150 - 420 x10E9/L 09/07/2024 1:12 AM [facility] MPV 9.9 7.8 - 11.4 fL 09/07/2024 1:12 AM [facility] Blood BLOOD SPECIMEN / Unknown Lab Venipuncture / Unknown 09/07/2024 12:23 AM DAG SPRAYER 09/07/2024 1:07 AM DAG SPRAYER Hilton Jackson III, MD LAB - HEMATOLOG Y ORDERABLES [facility] [address] [place] [address], [facility] [phone] * (ABNORMAL) BASIC METABOLIC PANEL (CALCIUM TOTAL) (09/06/2024 12:47 AM DAG SPRAYER) Only the most recent of3 resultswithin the time period is included. BUN 9 7 - 26 mg/dL 09/06/2024 2:57 AM [facility] Creatinine 0.98 0.71 - 1.16 mg/dL 09/06/2024 2:57 AM [facility] Sodium 133(L) 136 - 145 mmol/L 09/06/2024 2:57 AM [facility] Potassium 4.1 3.5 - 4.5 mmol/L 09/06/2024 2:57 AM [facility] Chloride 105 98 - 107 mmol/L 09/06/2024 2:57 AM [facility] CO2 19(L) 22 - 29 mmol/L 09/06/2024 2:57 AM [facility] Glucose 140(H) 70 - 99 mg/dL 09/06/2024 2:57 AM [facility] Calcium 8.5 8.4 - 10.2 mg/dL 09/06/2024 2:57 AM [facility] Anion Gap 9 6 - 16 09/06/2024 2:57 AM [facility] BUN/Creatinine Ratio 9 7 - 23 09/06/2024 2:57 AM [facility] Osmolality Calculated 277 275 - 295 mOsm/kg 09/06/2024 2:57 AM [facility] eGFR by CKD-EPI 83(L) >=90 mL/min/1.7 3 m2 09/06/2024 2:57 AM [facility] Blood BLOOD SPECIMEN / Unknown Lab Venipuncture / Unknown 09/06/2024 12:47 AM DAG SPRAYER 09/06/2024 2:25 AM [facility] Hilton Jackson III, MD LAB - CHEMISTRY ORDERABLES [facility] [address] [place] [address], [facility] [phone] * EGD (09/04/2024 9:26 AM [facility]) Report Endoscopy POC Endoscopy Department Report _ [...] entire procedure. 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 All rights reserved. The codes documented in this report are preliminary and upon hims coder review may be revised to meet current compliance requirements. Ian Ellsworth, 09/04/2024 10:16:58 AM Note Initiated On: 09/04/2024 9:26 AM Number of Addenda: 0 [facility] [address] [place] [id number] [facility] 09/04/2024 9:26 AM DAG SPRAYER Moncho Zacarias MD GI PROCEDURE ORDERAB LES Performing Organization Address City/[facility] Co de Phone Number [facility] * BLOOD TYPE VERIFICATION (09/03/2024 9:47 AM DAG SPRAYER) ABO Rh A POS 09/03/2024 10:35 AM DAG SPRAYER [facility] B[facility]OD [facility] LAB Blood Bank BLOOD SPECIMEN / Unknown Lab Venipuncture / Unknown 09/03/2024 9:47 AM DAG SPRAYER 09/03/2024 10:08 AM DAG SPRAYER Ruth Chavez [employer] SUPERVISOR LAB - BLOOD BANK ORDERABLES Performing Organization Address [facility] Co de Phone Number [facility] [address] [place] [id number], [facility] [phone] * CT Abdomen Pelvis W Contrast (09/02/2024 10:39 PM DAG SPRAYER) Anatomical Region Laterality Modality Abdomen, Pelvis Computed Tomogra phy 09/02/2024 11:2 1 PM DAG SPRAYER Impressions 09/03/2024 10:26 AM DAG SPRAYER Impression: 1.Findings consistent with hepatic cirrhosis with [...] to the prior study. > Dictated by Dnei Franklin MD (vice president of advertising). I, Bc Fortune MD have personally reviewed and interpreted this examination/study. > Interpreting Provider: Bc Fortune MD on 09/03/2024 10:26 AM Narrative 09/03/2024 10:26 AM DAG SPRAYER PROCEDURE: CT ABDOMEN PELVIS W CONTRAST, DATE/TIME OF EXAM: 09/02/2024 10:40 PM, LOCATION [facility] INDICATION: K92.1: Melena C18.9: Malignant [...] DATE/TIME OF EXAM: 09/02/2024 10:40 PM, LOCATION [facility] INDICATION: K92.1: Melena C18.9: Malignant [...] study. > Dictated by Deni Franklin MD (vice president of advertising). I, Bc Fortune MD have personally reviewed and interpreted this examination/study. > Interpreting Provider: Bc Fortune MD on 09/03/2024 10:26 AM Eh Bales MD CT ORDERABLES * TYPE + SCREEN PANEL (09/02/2024 9:38 PM DAG SPRAYER) Antibody Screen NEG 10:21 PM DAG SPRAYER [facility] LAB ABO Rh A POS 09/02/2024 10:21 PM DAG SPRAYER [facility] B[facility] LAB Blood Bank BLOOD SPECIMEN / Unknown Venipuncture / Unknown 09/02/2024 9:38 PM DAG SPRAYER 09/02/2024 9:45 PM DAG SPRAYER Eh Bales MD LAB - BLOOD BANK ORD ERABLES [facility] [address] [place] [address], [facility] [phone] * Endoscopy, Colon, Diagnostic (08/23/2024 1:34 PM DAG SPRAYER) Report Endoscopy POC Endoscopy Department Report _ [...] bowel preparation was evaluated using the BBPS ([place] Bowel Preparation Scale) with scores of: Right [...] non-molina portions. Procedure Code(s): --- Professional --- 81470, Colonoscopy, flexible; with biopsy, single or multiple Diagnosis Code(s): --- Professional --- K64.8, Other hemorrhoids C18.2, Malignant neoplasm of ascending colon K56.690, Other partial intestinal obstruction K57.30, Diverticulosis of large intestine without perforation or abscess without bleeding CPT copyright 2021 [place] [employer]. All rights reserved. The codes documented in this report are preliminary and upon hims coder review may be revised to meet current compliance requirements. Kerri Finch MD 08/23/2024 3:10:02 PM Note Initiated On: 08/23/2024 1:34 PM Number of Addenda: [id number] [place] [address] 08/23/2024 1:34 PM DAG SPRAYER Wayne Doss MD GI PROCEDURE ORDERAB LES Performing Organization Address City/[facility]/ZIP Co de Phone Number [facility] * (ABNORMAL) HEMOGLOBIN A1C (08/23/2024 8:38 AM DAG SPRAYER) Hemoglobin A1c 8.0(H) <=5.6 % 08/23/2024 12:31 PM DAG SPRAYER [facility] Estimated Average Glucose 183 mg/dL 08/23/2024 12:31 PM DAG SPRAYER [facility] Comment: HbA1c Interpretation: Normal : < 5.7% Pre-diabetes: 5.7-6.4% Diabetes: Equal to or greater than 6.5% Test results diagnostic of diabetes should be repeated for confirmation. Treatment target values recommended by ADA and other clinical organizations should be used to evaluate metabolic control in patients. Reference: [place] [employer], Standards of Care in Diabetes -2020 In patients 70 years and older consider HbA1c target range of 7.0-7.5% (Reference: Panda Thompson, et al. JAMDA. 2012) The Sebia assay for the measurement of HbA1c is a National Glycohemoglobin Standardization Program (NGSP) certified method. Blood BLOOD SPECIMEN / Unknown Lab Venipuncture / Unknown 08/23/2024 8:38 AM DAG SPRAYER 08/23/2024 9:33 AM DAG SPRAYER Wayne Doss MD LAB - CHEMISTRY TOM JACOBSON Performing Organization Address City/[facility]/ZIP Co de Phone Number [address] [address], [facility] [phone] * HEPATITIS C AB SCREEN RFLX NAAT QUANT (08/21/2024 7:37 AM DAG SPRAYER) Hepatitis C Antibody Non-react ap Non-reac tive 08/21/2024 8:36 AM DAG SPRAYER [facility] Comment:Hepatitis C Antibody screen indicates [...] Lab Venipuncture / Unknown 08/21/2024 7:37 AM DAG SPRAYER 08/21/2024 7:47 AM DAG SPRAYER Leia Pelaez MD LAB - CHEMISTRY TOM JACOBSON [facility] [address] [place] [address], [facility] [phone] from Last 3 Months or Most Recently Relevant to Health Maintenance Advance Directives * Full Code (Latest Code Status on File) Date Activated Date Inactivated Comments 09/03/2024 4:23 AM 09/07/2024 12:23 PM * Full Code Date Activated Date Inactivated Comments 08/19/2024 8:25 PM 08/25/2024 5:27 PM Care Teams Zipper Setter Lockstitch Relationship Specialty Start Date End Date Ruth Chavez March, [employer]IM[employer] SUPERVISOR [address] [place] [id number] PCP - General Nurse Practitioner 08/22/24 Cyndee Jacobsen DO [address] [place] [address] Resident Hematology and Oncology 09/04/24
--- NOTE | 2024-11-27 21:43 | PC.NURSE ---
Pt called multiple times to come back to a room with no answer.
--- OUTSIDE RECORDS SUMMARY | 2024-11-27 22:33 | XMS_ITS ---
Author Organization [facility] Address [address] [place] [address] Care Team Providers Care Supervisor Travel Information Center Name Role Phone Unavailable Unavailable Unavailable Surgery Details Not on file Complications Check Surgery Details section. Procedure Estimated Blood Loss Check Surgery Details section. Procedure Findings Check Surgery Details section. Procedure Specimens Taken Check Surgery Details section.
--- OUTSIDE RECORDS SUMMARY | 2024-11-27 22:33 | XMS_ITS | Referral Summary ---
Author Organization [facility] Address [address] [place] [address] Care Team Providers Care Credit Risk Analyst Name Role Phone Unavailable Primary Care Provider [...] Plan of Treatment Not on file Insurance [facility] PPO
--- OUTSIDE RECORDS SUMMARY | 2024-11-27 22:33 | XMS_ITS | Clinical Summary ---
Author Organization [facility] Address [address] [place] [address] Care Team Providers Care Machine Operator Picker Name Role Phone Ruth Chavez March WORKERS COMPENSATION ADMINISTRATOR-UNIVERSITY INTERN Primary Care Provid er Cyndee Jacobsen DO Unavailable [phone] Source Comments [facility],non-owned Affiliates and Associated Physician Practices is amultiple site organization consisting of ambulatory clinics and hospital sitesin [place], [place], [place] and [place]. This disclosure is being madepursuant to the Care Everywhere program and may not contain all information available regarding this patient. Last updated 18.[facility] Allergies No known active allergies Medications * [...] - Hematology/Onco logy [address] [place] [phone] Elizabeth Newby, WORKERS COMPENSATION ADMINISTRATOR-UNIVERSITY INTERN Malignant neoplasm of ascending colon (HCC) 11/23/2024 Orders Only [facility] - Hematology/Onco logy [address] [place] [phone] Elizabeth Newby, WORKERS COMPENSATION ADMINISTRATOR-UNIVERSITY INTERN 10/24/2024 Telephone [facility] - Hematology/Onco logy [address] [place] [phone] Mattie Tong MD Follow-up 10/23/2024 Orders Only [facility] - Hematology/Onco logy [address] [place] [phone] Elizabeth Newby, WORKERS COMPENSATION ADMINISTRATOR-UNIVERSITY INTERN 10/17/2024 9:40 AM CHILD ADOLESCENT CARE Office Visit [facility] - Hematology/Onco logy [address] [place] [phone] Cyndee Jacobsen DO Malignant neoplasm of ascending colon (HCC) (Primary Dx); Peritoneal carcinomatosis (HCC); Malignant neoplasm of colon, unspecified part of colon (HCC) 10/17/2024 8:55 AM CHILD ADOLESCENT CARE - 10/17/2024 11:59 PM CHILD ADOLESCENT CARE Hospital Encounter [facility] [address] [place] [address] Unknown, Provider Discharge Disposition: Home or Self Care 10/17/2024 Travel 10/12/2024 Orders Only [facility] - Hematology/Onco logy [address] [place] [phone] Mattie Tong MD 10/09/2024 2:30 PM CHILD ADOLESCENT CARE Office Visit [facility] - GI [address] [place] [phone] Wayne Doss MD Elbeshbeshy, Hany Ahmed, MD [...] long-term use 10/09/2024 Travel 09/28/2024 5:35 PM CHILD ADOLESCENT CARE - 09/28/2024 5:39 PM CHILD ADOLESCENT CARE Emergency [facility] [address] [place] [phone] Discharge Disposition: Left Against Medical Advice/Discontinued Care 09/28/2024 Travel 09/26/2024 1:00 PM CHILD ADOLESCENT CARE Office [facility] - Hematology/Onco logy [address] [place] [phone] Newby, Elizabeth, WORKERS COMPENSATION ADMINISTRATOR-UNIVERSITY INTERN Malignant neoplasm of ascending colon (HCC) (Primary Dx); Anemia, unspecified type 09/26/2024 Travel 09/25/2024 Orders Only [facility] - Hematology/Onco logy [address] [place] [phone] Elizabeth Newby, WORKERS COMPENSATION ADMINISTRATOR-UNIVERSITY INTERN 09/25/2024 Orders Only [facility] - Hematology/Onco logy [address] [place] [phone] Elizabeth Newby, WORKERS COMPENSATION ADMINISTRATOR-UNIVERSITY INTERN 09/25/2024 Orders Only [facility] - Hematology/Onco logy [address] [place] [address] Mattie Tong MD Malignant neoplasm of ascending colon (HCC) 09/21/2024 5:57 AM CHILD ADOLESCENT CARE - 09/21/2024 9:29 AM CHILD ADOLESCENT CARE Hospital Encounter [facility] [address] [place] [phone] Víctor Hooper MD Farmer, Adam D, MD [facility] Discharge Disposition: Home or Self Care 09/21/2024 Travel 09/20/2024 Orders Only [facility] - Hematology/Onco logy [address] [place] [phone] Cyndee Jacobsen DO Peritoneal carcinomatosis (HCC); Malignant neoplasm of colon, unspecified part of colon (HCC) 09/19/2024 10:20 AM CHILD ADOLESCENT CARE Office Visit [facility] - Hematology/Onco logy [address] [place] [address] Víctor Hooper MD Weidenbaum, Chloe, DO Malignant neoplasm of ascending colon (HCC) (Primary Dx); Peritoneal carcinomatosis (HCC); Malignant neoplasm of colon, unspecified part of colon (HCC) 09/19/2024 Travel 09/15/2024 Telephone [facility] - Hematology/Onco logy [address] [place] [address] Cyndee Jacobsen DO Appointment (Spoke with pt abt appt on Wednesday09/19/24 at 10:20 AM. Told pt there is free rotary cutter parking and to check in at desk at right upon arrival before going to second floor. Confirmed. ) 09/11/2024 Telephone Transitional Care at [facility] [address] [place] [address] Piper Morrison RNcommunication electronic technician 09/04/2024 9:48 AM CHILD ADOLESCENT CARE Anesthesia Event [facility] ENDOSCOPY [address] [place] [phone] Imelda Cm MD 09/04/2024 9:19 AM CHILD ADOLESCENT CARE - 09/04/2024 9:49 AM CHILD ADOLESCENT CARE Surgery [facility] ENDOSCOPY [address] [place] [address] Ian Ellsworth MD ESOPHAGOGASTRODUODENOSCOPY (EGD) DIAGNOSTIC 09/02/2024 10:53 PM CHILD ADOLESCENT CARE - 09/07/2024 11:18 AM CHILD ADOLESCENT CARE Hospital Encounter [facility] Early Admission Unit [address] [place] [address] Sylvester Mathis MD Purdy, Justin, MD Morreale, Peter J III, MD Emergency Medicine Discharge Disposition: Home or Self Care 09/02/2024 Travel 2024 Telephone [facility] - Hematology/Onco logy [address] [place] [phone] Cyndee Jacobsen DO Appointment (LVM for pt abt appt on Wednesday09/05/24 at 10:00 AM. Told pt there is free rotary cutter parking and to check in at desk on right upon arrival then go to second floor. Also told pt happy birthday because it is his bday today. ) 08/31/2024 Telephone [facility] - GI [address] [place] [address] Jake Mathis MD Results 08/29/2024 Lab Requisition [facility] [address] [place] [address] Luann Hand MD from Last 3 Months [...] and heating? Not hard at all 09/04/2024 [facility] of Occupat ional Health - Occupational Stress [...] any time in the past 12 m [facility], were you homeless or living in a penitentiary (including now)? No 09/04/2024 Sex and Gender Information Value Date Recorded Sex Assigned at Not on file Gender Identity Not on file Sexual Orientation Not on file Last Filed Vital Signs Vital Sign Reading Time Taken Comments Blood Pressure 110/71 10/17/2024 9:28 AM [facility]ILD [facility]CENT CARE Pulse 84 10/17/2024 9:28 AM [facility]CENT CARE Temperature 36.7 C (98 F) 10/17/2024 9:28 AM [facility] C[facility] Respiratory Rate 20 10/17/2024 9:28 AM [facility]ENT CARE Oxygen Saturation 99% 10/17/2024 9:28 AM [facility] Inhaled Oxygen Concentration - - Weight 91.4 kg (201 lb 8 oz) 10/17/2024 9:28 AM [facility] Height 160 cm (5' 2.99 ) 10/17/2024 9:28 AM [facility] Body Mass Index 35.7 10/17/2024 9:28 AM [facility]ILD [facility]CENT CARE Plan of Treatment Upcoming Encounters Date Type Department Care Team (Late st Contact Info) Description 05/28/2025 2:00 PM CDT Office Visit [facility] - GI [address] [place] [phone] Herber Schrader MD [address] [place] [address] [place] [address] Health Maintenance Due Date Last Done Comments [...] Management General On track( 024 2:47 PM CHILD ADOLESCENT CARE) No Deborah Christian, RN Note: Expected end date: ongoing Interventions: Take all medications as prescribed Let your doctor know right away about any changes in your medications Make sure to request a refill of your medication at least one week prior to your last dose Medical Devices Implanted Type Area Med Surg Nurse Device Identifier Shelf Expiration Date Model / Serial / Lot Port Implinfn Powerport Clrvu Argd La Implanted:Qty: 1 on 09/21/2024 at [facility] [employer] Peripheral Vascular 01/08/2026 [id number] / / [id number] Procedures Procedure Name Priority Date/Time Associated Diagnosis Comments MAGNESIUM BLOOD STAT 10/17/2024 9:09 AM CHILD ADOLESCENT CARE PHOSPHORUS BLOOD STAT 10/17/2024 9:09 AM [facility] C[facility] CBC W AUTO DIFFERENTIAL STAT 10/17/2024 9:09 AM [facility] CARE COMPREHENSIVE METABOLIC PANEL STAT 10/17/2024 9:09 AM [facility] IRON + TRANSFERRIN PANEL Routine 10/17/2024 9:09 AM [facility] Anemia, unspecified type FERRITIN Routine 10/17/2024 9:09 AM [facility]CENT CARE Anemia, unspecified type PT-INR [facility] STAT 09/28/2024 10:46 AM [facility]ESCENT CARE COMPREHENSIVE METABOLIC PANEL STAT 09/28/2024 10:46 AM [facility] C[facility] CBC W AUTO DIFFERENTIAL STAT 09/28/2024 10:46 AM [facility] URINALYSIS W/MICROSCOPIC REFLEX TO CULTURE STAT 09/28/2024 10:46 AM [facility] IR GILBERTO CATH INSERT Routine 09/21/2024 8:57 AM [facility] CARE Peritoneal carcinomatosis (HCC) Malignant neoplasm of colon, unspecified part of colon (HCC) GLUCOSE - POINT OF CARE Routine 09/21/2024 6:48 AM [facility]ILD [facility]OLESCENT CARE PT-INR [facility] Routine 09/07/2024 12:23 AM [facility] C[facility] PTT [facility] Timed 09/07/2024 12:23 AM [facility] Ascites due to alcoholic cirrhosis (HCC) CBC W/O DIFFERENTIAL AM Draw 09/07/2024 12:23 AM [facility] CARE PTT [facility] Timed 09/06/2024 5:28 PM [facility]ILD ADOLESCENT CARE Thrombosis of superior vena cava (HCC) GLUCOSE - POINT OF CARE Routine 09/06/2024 10:06 AM [facility]ILD [facility]OLESCENT CARE PTT [facility] Routine 09/06/2024 9:27 AM [facility] CARE GLUCOSE - POINT OF CARE Routine 09/06/2024 5:25 AM [facility]ILD ADOLESCENT CARE BASIC METABOLIC PANEL (CALCIUM TOTAL) AM Draw 09/06/2024 12:47 AM [facility] CARE GLUCOSE - POINT OF CARE Routine 09/05/2024 9:27 PM [facility]ILD [facility]OL[facility]CENT CARE GLUCOSE - POINT OF CARE Routine 09/05/2024 6:27 PM [facility]ILD ADOLESCENT CARE GLUCOSE - POINT OF CARE Routine 09/05/2024 12:35 PM [facility]ILD [facility]ESCENT CARE GLUCOSE - POINT OF CARE Routine 09/05/2024 6:05 AM [facility]OL[facility]CENT CARE CBC W/O DIFFERENTIAL AM Draw 09/05/2024 1:02 AM [facility]ILD [facility]OLESCENT CARE BASIC METABOLIC PANEL (CALCIUM TOTAL) AM Draw 09/05/2024 1:02 AM [facility] CARE GLUCOSE - POINT OF CARE Routine 09/05/2024 12:05 AM [facility]ENT CARE GLUCOSE - POINT OF CARE Routine 09/04/2024 5:51 PM [facility]ILD [facility]OLESCENT CARE GLUCOSE - POINT OF CARE Routine 09/04/2024 12:36 PM CHILD ADOLESCENT CARE IA ED EGD FLEX TRANSORAL DX 09/04/2024 9:43 AM CHILD ADOLESCENT CARE Melena EGD Routine 09/04/2024 9:26 AM [facility]ILD [facility]OLESCENT CARE GLUCOSE - POINT OF CARE Routine 09/04/2024 9:13 AM [facility]ILD [facility]OLESCENT CARE GLUCOSE - POINT OF CARE Routine 09/04/2024 6:12 AM [facility]ILD ADOLESCENT CARE BASIC METABOLIC PANEL (CALCIUM TOTAL) AM Draw 09/04/2024 12:22 AM [facility]ILD [facility]OLESCENT CARE Melena CBC W/O DIFFERENTIAL AM Draw 09/04/2024 12:22 AM [facility]ILD [facility]OLESCENT CARE Melena PHOSPHORUS BLOOD Routine 09/04/2024 12:2 2 AM [facility]OLESCENT CARE Melena Malignant neoplasm of colon, unspecified part of colon (HCC) Abdominal pain, generalized GLUCOSE - POINT OF CARE Routine 09/04/2024 12:11 AM [facility]ENT CARE GLUCOSE - POINT OF CARE Routine 09/03/2024 6:14 PM [facility]ILD ADOLESCENT CARE GLUCOSE - POINT OF CARE Routine 09/03/2024 12:52 PM [facility] CARE BLOOD TYPE VERIFICATION STAT 09/03/2024 9:[address] [address] ABDOMEN PELVIS W CONTRAST STAT 09/02/2024 10:39 PM [facility]OLESCENT CARE Melena Malignant neoplasm of colon, unspecified part of colon (HCC) Abdominal pain, generalized TYPE + SCREEN PANEL STAT 09/02/2024 9 :38 PM CHILD ADOLESCENT CARE PT-INR [facility] STAT 09/02/2024 9:38 PM [facility]ILD ADOLESCENT CARE COMPREHENSIVE METABOLIC PANEL STAT 09/02/2024 9:38 PM [facility] C[facility] CBC W AUTO DIFFERENTIAL STAT 09/02/2024 9:38 PM [facility] ENDOSCOPY, COLON, DIAGNOSTIC Routine 08/23/2024 1:34 PM [facility] CARE HEMOGLOBIN A1C Routine 08/23/2024 8:38 AM [facility] CARE HEPATITIS C AB SCREEN RFLX NAAT QUANT Routine 08/21/2024 7:37 AM [facility]ILD ADOL[facility]CENT CARE from Last 3 Months or Most Recently Relevant to Health Maintenance Results * (ABNORMAL) CBC W AUTO DIFFERENTIAL (10/17/2024 9:09 AM [facility]ILD [facility]OLESCENT CARE) Only the most recent of3 resultswithin the time period is included. WBC 12.2(H) 4.0 - 10.7 x10E9/L 10/17/2024 9:35 AM [facility] RBC Count 3.78(L) 4.30 - 5.80 x10E12/L 10/17/2024 9:35 AM [facility] Hemoglobin 11.4(L) 13.3 - 17.5 g/dL 10/17/2024 9:35 AM [facility] Hematocrit 33.8(L) 38.7 - 51.1 % 10/17/2024 9:35 AM [facility] MCV 89.4 80.0 - 98.0 fL 10/17/2024 9:35 AM [facility] MCH 30.2 26.7 - 33.6 pg 10/17/2024 9:35 AM [facility] MCHC 33.7 31.7 - 36.3 g/dL 10/17/2024 9:35 AM [facility] RDW-CV 13.1 11.3 - 14.8 % 10/17/2024 9:35 AM [facility] Platelet Count 440(H) 150 - 420 x10E9/L 10/17/2024 9:35 AM [facility] MPV 8.9 7.8 - 11.4 fL 10/17/2024 9:35 AM [facility] Preliminary Absolute Neutrophil 8.74(H) 1.60 - 7.50 x10E9/L 10/17/2024 9:35 AM [facility] Neutrophil % 71.8 41.0 - 74.0 % 10/17/2024 9:35 AM [facility] Lymphocyte % 17.1 17.0 - 47.0 % 10/17/2024 9:35 AM [facility] Monocyte % 8.4 3.0 - 11.0 % 10/17/2024 9:35 AM [facility] Eosinophil % 0.8 0.0 - 7.0 % 10/17/2024 9:35 AM [facility] Basophil % 0.7 0.0 - 1.6 % 10/17/2024 9:35 AM [facility] Immature Granulocytes % 1.2(H) 0.0 - 1.0 % 10/17/2024 9:35 AM [facility] Neutrophil Absolute 8.74(H) 1.60 - 7.50 x10E9/L 10/17/2024 9:35 AM [facility] Lymphocyte Absolute 2.08 1.00 - 4.40 x10E9/L 10/17/2024 9:35 AM [facility] Monocyte Absolute 1.02(H) 0.15 - 1.00 x10E9/L 10/17/2024 9:35 AM [facility] Eosinophil Absolute 0.10 0.00 - 0.60 x10E9/L 10/17/2024 9:35 AM [facility] Basophil Absolute 0.08 0.00 - 0.13 x10E9/L 10/17/2024 9:35 AM [facility] Blood BLOOD SPECIMEN / Unknown Venipuncture / Unknown 10/17/2024 9:09 AM [facility] 10/17/2024 9:20 AM [facility] Mattie Tong MD LAB - HEMATOLOGY ORD ERABLES [facility] [address] [place] [address], [facility] [phone] * (ABNORMAL) COMPREHENSIVE METABOLIC PANEL (10/17/2024 9:09 AM [facility]) Only the most recent of3 resultswithin the time period is included. BUN 19 7 - 26 mg/dL 10/17/2024 9:59 AM [facility] Creatinine 1.39(H) 0.71 - 1.16 mg/dL 10/17/2024 9:59 AM [facility] Sodium 132(L) 136 - 145 mmol/L 10/17/2024 9:59 AM [facility] Potassium 4.9(H) 3.5 - 4.5 mmol/L 10/17/2024 9:59 AM [facility] Chloride 103 98 - 107 mmol/L 10/17/2024 9:59 AM [facility] CO2 20(L) 22 - 29 mmol/L 10/17/2024 9:59 AM [facility] Glucose 146(H) 70 - 99 mg/dL 10/17/2024 9:59 AM [facility] Calcium 9.4 8.4 - 10.2 mg/dL 10/17/2024 9:59 AM [facility] Protein Total 7.9 6.0 - 8.3 g/dL 10/17/2024 9:59 AM [facility] Albumin 3.3(L) 3.4 - 5.0 g/dL 10/17/2024 9:59 AM [facility] Bilirubin Total 0.6 0.2 - 1.2 mg/dL 10/17/2024 9:59 AM [facility] Alkaline Phosphatase 101 40 - 150 U/L 10/17/2024 9:59 AM [facility] ALT 18 5 - 55 U/L 10/17/2024 9:59 AM [facility] AST 15 5 - 34 U/L 10/17/2024 9:59 AM [facility] Anion Gap 9 6 - 16 10/17/2024 9:59 AM [facility] BUN/Creatinine Ratio 14 7 - 23 10/17/2024 9:59 AM [facility] Osmolality Calculated 279 275 - 295 mOsm/kg 10/17/2024 9:59 AM [facility] Albumin/Globulin Ratio 0.7(L) 1.1 - 2.3 10/17/2024 9:59 AM [facility] eGFR by CKD-EPI 55(L) >=90 mL/min/1.7 3 m2 10/17/2024 9:59 AM [facility] Blood BLOOD SPECIMEN / Unknown Venipuncture / Unknown 10/17/2024 9:09 AM [facility] 10/17/2024 9:20 AM [facility] Mattie Tong MD LAB - CHEMISTRY TOM JACOBSON Performing Organization Address City/[facility]/ZIP Co de Phone Number [address] [address], [facility] [phone] * PHOSPHORUS BLOOD (10/17/2024 9:09 AM [facility]) Only the most recent of2 resultswithin the time period is included. Phosphorus 4.1 2.8 - 5.1 mg/dL 10/17/2024 9:59 AM [facility] Blood BLOOD SPECIMEN / Unknown Venipuncture / Unknown 10/17/2024 9:09 AM [facility] 10/17/2024 9:20 AM [facility] Mattie Tong MD LAB - CHEMISTRY TOM JACOBSON [address] [address], [facility] [phone] * MAGNESIUM BLOOD (10/17/2024 9:09 AM [facility]) Magnesium 1.6 1.6 - 2.6 mg/dL 10/17/2024 9:59 AM [facility] Blood BLOOD SPECIMEN / Unknown Venipuncture / Unknown 10/17/2024 9:09 AM [facility] 10/17/2024 9:20 AM [facility] Mattie Tong MD LAB - CHEMISTRY TOM JACOBSON [address] [address], [place] [phone] * IRON + TRANSFERRIN PANEL (10/17/2024 9:09 AM [facility]) Iron 58 50 - 175 ug/dL 10/17/2024 10:35 AM [facility] Transferrin 212 174 - 382 mg/dL 10/17/2024 10:35 AM [facility] Transferrin Saturation % 22 16 - 50 % 10/17/2024 10:35 AM [facility] TIBC Calculated 265 240 - 450 ug/dL 10/17/2024 10:35 AM [facility] Blood BLOOD SPECIMEN / Unknown Venipuncture / Unknown 10/17/2024 9:09 AM [facility] 10/17/2024 9:16 AM [facility] Elizabeth Newby APRN-UNIVERSITY INTERN LAB - CHEMISTRY ORD MARGARITOBLES Performing Organization Address City/[facility]/ZIP Co de Phone Number [address] [address], [place] [phone] * FERRITIN (10/17/2024 9:09 AM [facility]) Ferritin 98 22 - 275 ng/mL 10/17/2024 10:35 AM [facility] Blood BLOOD SPECIMEN / Unknown Venipuncture / Unknown 10/17/2024 9:09 AM [facility] 10/17/2024 9:16 AM [facility] Elizabeth Newby APRN-UNIVERSITY INTERN LAB - CHEMISTRY ORD ERABLES [address] [address], [place] [phone] * (ABNORMAL) PT-INR [facility] (09/28/2024 10:46 AM [facility]) Only the most recent of3 resultswithin the time period is included. PT 14.9(H) 12.1 - 14.8 Seconds 09/28/2024 11:19 AM [facility] INR 1.2 See Comment 09/28/2024 11:19 AM [facility] Comment:The suggested therap eutic range for standard coumadin (warfarin) therapy is an INR of 2.0-3.0. For high-risk patients (Mechanical Mitral Valve Prosthesis, etc.), the suggested prophylactic therapeutic range is an INR of 2.5-3.5. Blood BLOOD SPECIMEN / Unknown Venipuncture / Unknown 09/28/2024 10:46 AM [facility] 09/28/2024 10:50 AM [facility] Trang Wheatley Buitrago WORKERS COMPENSATION ADMINISTRATOR-UNIVERSITY INTERN LAB - COAGULA TION ORDERABLES Performing Organization Address City/State/[facility] Co de Phone Number [facility] [address] [place] [address], [facility] [phone] * (ABNORMAL) URINALYSIS W/MICROSCOPIC REFLEX TO CULTURE (09/28/2024 10:46 AM [facility]) Color UA Straw Straw, Yellow 09/28/2024 11:02 AM [facility] Clarity UA Clear Clear 09/28/2024 11:02 AM [facility] Specific [place] UA 1.004(L) 1.005 - 1.030 09/28/2024 11:02 AM [facility] pH UA 6.0 5.0 - 8.0 pH 09/28/2024 11:02 AM [facility] Protein UA Negative Negative 09/28/2024 11:02 AM [facility] Glucose UA Negative Negative 09/28/2024 11:02 AM [facility] Ketone UA Negative Negative 09/28/2024 11:02 AM [facility] Bilirubin UA Negative Negative 09/28/2024 11:02 AM [facility] Blood UA Negative Negative 09/28/2024 11:02 AM [facility] Nitrite UA Negative Negative 09/28/2024 11:02 AM [facility] Leukocyte Esterase Negative Negative 09/28/2024 11:02 AM [facility] Urobilinogen UA Negative Negative mg/dL 09/28/2024 11:02 AM [facility] RBC UA 0-2 None Seen, 0-2, 3-5 /HPF 09/28/2024 11:02 AM [facility] WBC UA 0-5 None Seen, 0-5 /HPF 09/28/2024 11:02 AM [facility] Squamous Epithelial Cells UA None Seen None Seen, 0-2, 3-5 /HPF 09/28/2024 11:02 AM [facility] Urine URINE SPECIMEN OBTAINED BY CLEAN CATCH PROCEDURE / Unknown Collection / Unknown 09/28/2024 10:46 AM [facility] 09/28/2024 10:50 AM [facility] - 09/28/2024 11:02 AM [facility] Culture Not Indicated Trang Buitrago WORKERS COMPENSATION ADMINISTRATOR-UNIVERSITY INTERN LAB - URINALY SIS ORDERABLES Performing Organization Address City/State/[facility] Co de Phone Number [facility] [address] [place] [address], [facility] [phone] * IR Gilberto Cath Insert (09/21/2024 8:57 AM [facility]) Anatomical Region Laterality Modality Chest X-Ray Angiograph y 09/21/2024 2:46 PM [facility] Impressions 09/21/2024 5:28 PM [facility] Impression: Successful placement of a single lumen 8 Salvadorean x 26 cm chest power port via [...] evaluation, please review the evaluation forms in [facility]. For details on monitored clinical parameters during the intra-service sedation time, please review the procedure nurse documentation in [facility]. > Dictated by Titi Moulton (Commercial Relief Driver) 09/21/2024 2:46 PM Lawanda Weber MD have personally reviewed and interpreted this examination/study. > Interpreting Provider: Lawanda Vergara MD on 09/21/2024 5:28 PM Narrative 09/21/2024 5:28 PM [facility]ENT [facility] PROCEDURE: IR GILBERTO CATH INSERT DATE/TIME OF [...] chest. 3.Fluoroscopy-guided placement of single lumen 8 Salvadorean x 26 cm chest power port via the right internal jugular vein. Fluoroscopic time: 0.8 minutes Procedure details: The procedure, risks, and possible complications were explained to the patient in detail and informed consent was obtained. The patient was placed supine on the angiography table. The right neck and upper chest were prepped and draped in the usual sterile manner. A community center worker film of chest was obtained, which was [...] chest. 3.Fluoroscopy-guided placement of single lumen 8 Salvadorean x 26 cm chestpower port via the right internal jugular vein. Fluoroscopic time: 0.8 minutes Procedure details: The procedure, risks, and possible complications were explained to the patient in detail and informed consent was obtained. The patient wasplaced supine on the angiography table. The right neck and upper chest were prepped and draped in the usual sterile manner. A community center worker film of chestwas obtained, which was unremarkable. [...] the procedure well [facility]. There were no immediate complicationsassociated with the procedure. Impression: Successful placement of a single lumen 8 Salvadorean x 26 cmchest power port via the [...] patient evaluation, please reviewthe evaluation forms in [facility]. For details on monitored clinical parameters during the intra-service sedation time, please review the procedurenurse documentation in [facility]. > Dictated by Titi Moulton ([employer] Driver) 09/21/2024 2:46 PM ILawanda MD have personally reviewed and interpreted this examination/study. > Interpreting Provider: Lawanda Vergraa MD on 09/21/2024 5:28 PM Víctor Hooper MD IR ORDERABLES * (ABNORMAL) GLUCOSE - POINT OF CARE (09/21/2024 6:48 AM [facility]) Only the most recent of15 resultswithin the time period is included. Glucose WB/POC 138(H) 70 - 99 mg/dL 09/21/2024 6:48 AM [facility] Specimen Type Venous 09/21/2024 6:48 AM [facility] Blood BLOOD SPECIMEN / Unknown 09/21/2024 6:48 AM [facility] 09/21/2024 6:48 AM [facility] Víctor Hooper MD LAB - POINT OF CARE ORDERABLES Performing Organization Address City/[facility]/ZIP Co de Phone Number [address] [address], [facility] [phone] * (ABNORMAL) PTT [facility] (09/07/2024 12:23 AM [facility]) Only the most recent of3 resultswithin the time period is included. APTT 68.3(H) 23.0 - 38.4 Seconds 09/07/2024 1:27 AM [facility] Comment:Suggested therapeuti c range for full dose I.V. unfractionated heparin therapy for venous thromboembolism is 71 to 109 seconds. Blood BLOOD SPECIMEN / Unknown Lab Venipuncture / Unknown 09/07/2024 12:23 AM [facility] 09/07/2024 1:04 AM [facility] Hilton Jackson III, MD LAB - COAGULATI ON ORDERABLES [address] [address], [facility] [phone] * (ABNORMAL) CBC W/O DIFFERENTIAL (09/07/2024 12:23 AM [facility]) Only the most recent of3 resultswithin the time period is included. WBC 6.3 4.0 - 10.7 x10E9/L 09/07/2024 1:12 AM [facility] RBC Count 3.46(L) 4.30 - 5.80 x10E12/L 09/07/2024 1:12 AM [facility] Hemoglobin 10.7(L) 13.3 - 17.5 g/dL 09/07/2024 1:12 AM [facility] Hematocrit 32.1(L) 38.7 - 51.1 % 09/07/2024 1:12 AM [facility] MCV 92.8 80.0 - 98.0 fL 09/07/2024 1:12 AM [facility] MCH 30.9 26.7 - 33.6 pg 09/07/2024 1:12 AM [facility] MCHC 33.3 31.7 - 36.3 g/dL 09/07/2024 1:12 AM [facility] RDW-CV 12.5 11.3 - 14.8 % 09/07/2024 1:12 AM [facility] Platelet Count 339 150 - 420 x10E9/L 09/07/2024 1:12 AM [facility] MPV 9.9 7.8 - 11.4 fL 09/07/2024 1:12 AM [facility] Blood BLOOD SPECIMEN / Unknown Lab Venipuncture / Unknown 09/07/2024 12:23 AM [facility] 09/07/2024 1:07 AM [facility] Hilton Jackson III, MD LAB - HEMATOLOG Y ORDERABLES [facility] [address] [place] [address], [facility] [phone] * (ABNORMAL) BASIC METABOLIC PANEL (CALCIUM TOTAL) (09/06/2024 12:47 AM [facility]) Only the most recent of3 resultswithin the time period is included. BUN 9 7 - 26 mg/dL 09/06/2024 2:57 AM [facility] Creatinine 0.98 0.71 - 1.16 mg/dL 09/06/2024 2:57 AM [facility] Sodium 133(L) 136 - 145 mmol/L 09/06/2024 2:57 AM [facility] Potassium 4.1 3.5 - 4.5 mmol/L 09/06/2024 2:57 AM [facility] Chloride 105 98 - 107 mmol/L 09/06/2024 2:57 AM [facility] CO2 19(L) 22 - 29 mmol/L 09/06/2024 2:57 AM [facility] Glucose 140(H) 70 - 99 mg/dL 09/06/2024 2:57 AM [facility] Calcium 8.5 8.4 - 10.2 mg/dL 09/06/2024 2:57 AM [facility] Anion Gap 9 6 - 16 09/06/2024 2:57 AM [facility] BUN/Creatinine Ratio 9 7 - 23 09/06/2024 2:57 AM [facility] Osmolality Calculated 277 275 - 295 mOsm/kg 09/06/2024 2:57 AM [facility] eGFR by CKD-EPI 83(L) >=90 mL/min/1.7 3 m2 09/06/2024 2:57 AM [facility] Blood BLOOD SPECIMEN / Unknown Lab Venipuncture / Unknown 09/06/2024 12:47 AM [facility] 09/06/2024 2:25 AM [facility] Hilton Jackson III, MD LAB - CHEMISTRY ORDERABLES [facility] [address] [place] [address], [facility] [phone] * EGD (09/04/2024 9:26 AM [facility]) Report Endoscopy POC Endoscopy Department Report _ [...] entire procedure. 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 All rights reserved. The codes documented in this report are preliminary and upon flame degreaser review may be revised to meet current compliance requirements. Ian Ellsworth, 09/04/2024 10:16:58 AM Note Initiated On: 09/04/2024 9:26 AM Number of Addenda: 0 [facility] [address] [place] [id number] [facility] 09/04/2024 9:26 AM [facility] Moncho Zacarias MD GI PROCEDURE ORDERAB LES Performing Organization Address City/[facility] Co de Phone Number [facility] * BLOOD TYPE VERIFICATION (09/03/2024 9:47 AM [facility]) ABO Rh A POS 09/03/2024 10:35 AM [facility] Blood Bank BLOOD SPECIMEN / Unknown Lab Venipuncture / Unknown 09/03/2024 9:47 AM [facility] 09/03/2024 10:08 AM [facility] Ruth Chavez WORKERS COMPENSATION ADMINISTRATOR[employer] LAB - BLOOD BANK ORDERABLES Performing Organization Address [facility] Co de Phone Number [facility] [address] [place] [address], [facility] [phone] * CT Abdomen Pelvis W Contrast (09/02/2024 10:39 PM [facility]) Anatomical Region Laterality Modality Abdomen, Pelvis Computed Tomogra phy 09/02/2024 11:2 1 PM [facility] Impressions 09/03/2024 10:26 AM [facility] Impression: 1.Findings consistent with hepatic cirrhosis with [...] study. > Dictated by Deni [place] MD (president & ceo [employer]). I, Bc Fortune MD have personally reviewed and interpreted this examination/study. > Interpreting Provider: Bc Fortune MD on 09/03/2024 10:26 AM Narrative 09/03/2024 10:26 AM [facility] PROCEDURE: CT ABDOMEN PELVIS W CONTRAST, DATE/TIME OF EXAM: 09/02/2024 10:40 PM, LOCATION [facility] INDICATION: K92.1: Melena C18.9: Malignant [...] DATE/TIME OF EXAM: 09/02/2024 10:40 PM, LOCATION [facility] INDICATION: K92.1: Melena C18.9: Malignant [...] study. > Dictated by Deni [place] MD (president & ceo [employer]). I, Bc Fortune MD have personally reviewed and interpreted this examination/study. > Interpreting Provider: Bc Fortune MD on 09/03/2024 10:26 AM Eh Bales MD CT ORDERABLES * TYPE + SCREEN PANEL (09/02/2024 9:38 PM [facility]) Antibody Screen NEG 10:21 PM [facility] ABO Rh A POS 09/02/2024 10:21 PM [facility] Blood Bank BLOOD SPECIMEN / Unknown Venipuncture / Unknown 09/02/2024 9:38 PM [facility] 09/02/2024 9:45 PM [facility] Eh Bales MD LAB - BLOOD BANK ORD ERABLES [facility] [address] [place] [address], [facility] [phone] * Endoscopy, Colon, Diagnostic (08/23/2024 1:34 PM [facility]) Report Endoscopy POC Endoscopy Department Report _ [...] bowel preparation was evaluated using the BBPS ([place] Bowel Preparation Scale) with scores of: Right [...] non-molina portions. Procedure Code(s): --- Professional --- 35222, Colonoscopy, flexible; with biopsy, single or multiple Diagnosis Code(s): --- Professional --- K64.8, Other hemorrhoids C18.2, Malignant neoplasm of ascending colon K56.690, Other partial intestinal obstruction K57.30, Diverticulosis of large intestine without perforation or abscess without bleeding CPT copyright 2021 [employer]. All rights reserved. The codes documented in this report are preliminary and upon flame degreaser review may be revised to meet current compliance requirements. Kerri Finch MD 08/23/2024 3:10:02 PM Note Initiated On: 08/23/2024 1:34 PM Number of Addenda: [id number] [place] [address] 08/23/2024 1:34 PM [facility] Wayne Doss MD GI PROCEDURE ORDERAB LES Performing Organization Address City/[facility]/ZIP Co de Phone Number [facility] * (ABNORMAL) HEMOGLOBIN A1C (08/23/2024 8:38 AM [facility]) Hemoglobin A1c 8.0(H) <=5.6 % 08/23/2024 12:31 PM [facility] Estimated Average Glucose 183 mg/dL 08/23/2024 12:31 PM [facility] Comment: HbA1c Interpretation: Normal : < 5.7% Pre-diabetes: 5.7-6.4% Diabetes: Equal to or greater than 6.5% Test results diagnostic of diabetes should be repeated for confirmation. Treatment target values recommended by ADA and other clinical organizations should be used to evaluate metabolic control in patients. Reference: [employer], Standards of Care in Diabetes -2020 In patients 70 years and older consider HbA1c target range of 7.0-7.5% (Reference: Panda Thompson, et al. JAMDA. 2012) The Sebia assay for the measurement of HbA1c is a National Glycohemoglobin Standardization Program (NGSP) certified method. Blood BLOOD SPECIMEN / Unknown Lab Venipuncture / Unknown 08/23/2024 8:38 AM [facility] 08/23/2024 9:33 AM [facility] Wayne Doss MD LAB - CHEMISTRY TOM JACOBSON Performing Organization Address City/[facility]/ZIP Co de Phone Number [address] [address], [facility] [phone] * HEPATITIS C AB SCREEN RFLX NAAT QUANT (08/21/2024 7:37 AM [facility]) Hepatitis C Antibody Non-react ap Non-reac tive 08/21/2024 8:36 AM [facility] Comment:Hepatitis C Antibody screen indicates no serologic evidence of past or current infection with Hepatitis C Virus. Patients with unexplained liver disease who are immunocompromised or suspected of having acute Hepatitis C infection may benefit from Nucleic Acid Test ([place]) for Hepatitis C Viral RNA to confirm Hepatitis C status. Blood BLOOD SPECIMEN / Unknown Lab Venipuncture / Unknown 08/21/2024 7:37 AM [facility] 08/21/2024 7:47 AM [facility] Leia Pelaez MD LAB - CHEMISTRY TOM JACOBSON [facility] [address] [place] [address], [facility] [phone] from Last 3 Months or Most Recently Relevant to Health Maintenance Advance Directives * Full Code (Latest Code Status on File) Date Activated Date Inactivated Comments 09/03/2024 4:23 AM 09/07/2024 12:23 PM * Full Code Date Activated Date Inactivated Comments 08/19/2024 8:25 PM 08/25/2024 5:27 PM Care Teams Machine Operator Picker Relationship Specialty Start Date End Date Ruth Chavez March, WORKERS COMP[employer]ATION ADMINISTRATOR[employer] [address] [place] [phone] PCP - General Nurse Practitioner 08/22/24 Cyndee Jacobsen DO [address] [place] [address] Resident Hematology and Oncology 09/04/24
--- OUTSIDE RECORDS SUMMARY | 2024-11-27 22:33 | XMS_ITS | Data Portability ---
Author Organization [facility], [facility] IP Address [address] [place] [address] Care Team Providers Care Branner Machine Tender Name Role Phone MARIBEL LAYTON Primary Care Provider NIKI RYNA Referring Provider Assessment No assessment recorded. Plan of Treatment Reminders Order Date Submit Date Provider Last Modified By Organization Details Last Modified Time Details Appointments None record ed. Lab None record ed. Referral None record ed. Procedures None record ed. Surgeries None record ed. Imaging None record ed. Medication Orders None record ed. Patient TargetsNo targets recorded. Patient Instructions Encounter Date Encounter Id Patient Instructions Last Modified By Organization Details Last Modified Time 12/05/2018 [id number] The risks, benefits and alternatives were explained in detail, including but not limited to: bleeding, infection, anesthesia, heart attack, stroke, DVT, need for further surgery, injury to surrounding structures. Injury to liver, blood vessels to liver, bile ducts, intestines, cystic duct stump leak. Persistent symptoms despite surgery. Understanding was expressed. operative details of the date of surgery were to show up for this and was located with a leah curry were discussed. Low-fat diet for 4 weeks was discussed. Walking everyday for 5 times a day and retrieved 3 hours to prevent blood clots was discussed. Recovery w patient's back to work in 1 week by jogging 2 weeks 4 weeks and limited activity was explained. Plastic surgery closure skin glue and wound care was explained. [email or web address] Not available 12/05/2018 21:00:11 01/30/2019 [id number] Avoid aggressive physical activity for 1 month after surgery. Return to the office if any questions or problems, otherwise as directed. [address] Vines. happy with surgery [email or web address] Not available 01/30/2019 19:48:14 Reason for Referral None Reported. Results Created Date Observation Date Name Description Value Unit Range Abnormal Flag Note LastModifiedBy Organization Detail LastModifiedTime Result Notes None recorded. Problems Name Problem SNOMED Code Status Onset Date Resolution Date Notes Provider Name and Address Organization Details Recorded Time Hypertensive [facility] 03176049 [facility] 19:40:49 Disorder of gallbladder 03760406 Active [facility] 19:40:58 Problem Notes None recorded. Procedures Surgical History Date Name Laterality Status Provider Name and Address Organization Details Recorded Time 01/20/20 19 Cholecystectomy completed Kacie Linares [facility] 01/30/2019 19:45:51 Imaging Results None recorded. Procedure Notes None recorded. Medical Equipment None Reported. Allergies No known drug allergies Medications Name Sig Start Date Stop Date Status Note LastModified by Organization Details LastModified Time losartan 50 mg tablet active Not Available Not Available No t Available amoxicillin 500 mg capsule 2018 completed Not Available Not Available Not Available FreeStyle Lancets 28 gauge 2018 completed Not Available Not Available Not Available amlodipine 5 mg tablet 2018 completed Not Available Not Available Not Available oxycodone-fred taminophen 5 mg-325 mg tablet active Not Available Not Available Not Available FreeStyle Lite Meter kit 2018 completed Not Available Not Available Not Available FreeStyle Lite Strips active Not Available Not Available Not Available GaviLyte-G 236 gram-22.74 gram-6.74 gram-5.86 gram oral solution 2018 completed Not Available Not Available Not Available Vitals Date Recorded Body height Body mass index (BMI) Body weight Heart rate Body temperature Systolic blood pressure Diastolic blood pressure Provider Name and Address Organization Details Last Updated DateTime 9 170.18 cm 30.5 kg/m2 69079.5 1 g 90 /min 98.5 [degF] 135 mm[Hg] 81 mm[Hg] Leanne Dhillon [facility] 9 19:55:48 Date Recorded Body height Body mass index (BMI) Body weight Heart rate Systolic blood pressure Diastolic blood pressure Provider Name and Address Organization Details Last Updated DateTime 9 170.18 cm 29.8 kg/m2 43297.5 5 g 82 /min 143 mm[Hg] 87 mm[Hg] Kacie Milagros [facility] 9 19:45:22 Social History Question Answer Notes LastModified by Organizat ion Details LastModified Time Tobacco Smoking Status Former Smoker Leanne Tolliverbritney mansfield, [facility] 12/05/2018 19:41:02 What Was The Date Of Your Most Recent Tobacco Screening? 01/30/2019 Information n ot available 05/04/2019 Sex: Unknown Functional Status None recorded. Mental Status None recorded. Family History Nothing Reported. Medical History Condition Response Hypertension Y Past Encounters Encounter ID Performer Location Encounter Start Date Encounter Closed Date Diagnosis/Indication Diagnosis SNOMED-CT Code Diagnosis ICD10 Code Diagnosis Note [id number] Tereso Vines MD [facility] Main Office [address] [place] [phone] 12/05/2018 19:33:45 12/06/2018 12:30:13 Chronic cholecystitis 48437099 K81.1 assessment very pleasant 63-year-ol d gentleman who has near classic cholecysti tis. Plan laparoscop ic cholecyste ctomy. 5 elevated liver function tests and cardiac symmetry that the patient has known sequelae of liver disease. [id number] Tereso Vines MD [facility] Main Office [address] [facility] [address] [place] [address] 01/30/2019 15:20:00 01/30/2019 19:49:20 Cholelithiasis without obstruction 46510277 K80.20 Health Concerns Section Related Observation LastModified by Organization Detai ls LastModified Time None Recorded Concern Status LastModified by Organization Details LastModified Time None Recorded Advance Directives Directive None Recorded Payers Encounter Date Sequence Insurance Name Policy Number Policy Finley Covered Member ID Finley Member ID Guarantor Name 12/05/2018 1 [facility]PLAC[facility]/A DVANTAGE - HMO) [id number] Edwin Rhoades [id number] Edwin Rhoades 01/30/2019 1 [facility] (MEDICARE REPLACEMENT/A DVANTAGE - HMO) [id number] Edwin Corry Rhoades [id number] Edwin Rhoades Notes Date Note Type Note Provider Name and Address Organization Details Recorded Time 12/05/2018 text/html this is a very pleasant 63-year-old gentleman who is here today to be evaluated for cholecystitis. He has classic right upper quadrant pain may lead to the back after getting fatty meals. It also happens with the meals. She has been left at night and associated with food. He is currently a weeks without drinking. He stopped drinking himself. He also has a history of borderline diabetes and is changing his diet. The lower his blood sugars on his own. He does not have any history of known liver disease Tereso Vines MD [address] [place] [address] [address], [place], [address], [facility] 12/05/2018 21:00:35 01/30/2019 text/html Post-OpReported bypatient.Onset/T iming:date of surgery: (01/19/19) Quality:procedure : (lap jeronimo) Associated Symptoms:incision healing well; no fatigue; normal appetite; normal bowel function; no constipation; no nausea; no emesis; no pain; no fever; no bleeding; no lower extremity edema/pain; no dysuria/urinary symptoms po lap jeronimo Tereso Vines MD [address] [place] [address] [address], [place], [address], [facility] 03/07/2019 20:27:20
--- OUTSIDE RECORDS SUMMARY | 2024-11-27 22:33 | XMS_ITS ---
Author Name Mely Alejandre Address [address] [facility] [address] [place] [address] [facility], Address [address] [facility] [address] [place] [address] Care Team Providers Care Oyster Planter Name Role Phone Mely Alejandre Primary Care [...] 2022 9:21 AM DM [facility]: [facility] Compliant [...] and reassess at next visit- Will submit [facility] consult for urology after WRV Type 2 [...] Start Date [employer] - G1984 [employer] (PPO)-CAP [id number] Tuesday, 2022 [place] [id number] N/A [employer] - G1984 [employer] (PPO) [id number] Monday, 2021 History of Encounters Visit Date Visit Type Provider 05/27/2022 In Office Visit Scott Borrero MD 05/15/2022 In Office Visit Visits C. Nurse Other 05/14/2022 In Office Visit Scott Borrero MD 04/17/2022 In Office Visit Scott Borrero MD
--- OUTSIDE RECORDS SUMMARY | 2024-11-27 22:33 | XMS_ITS | Encounter Summary ---
Author Organization [facility] Address [address] [place] [address] Care Team Providers Care Principal Administrative Clerk Name Role Phone Unavailable Primary Care Provider Unavailabl e Prior Encounters Date Type Department Care Team Description 04/02/2021 Travel 03/26/2021 12:00 PM CDT Office Visit [facility] [address] [place] [phone] Candice Brush, ROULA 03/25/2021 Travel 03/25/2021 1:15 PM CDT Office Visit [facility] [address] [place] [phone] Candice Brush, DMD 10/30/2019 Converted CPS Chart Documents [facility] [address] [place] [phone] <No scans attached> 10/30/2019 Converted 13x Documents [facility] [address] [place] [phone] <No scans attached> 10/30/2019 Converted 13x Documents [facility] [address] [place] [phone] <No scans attached> 10/30/2019 Converted CPS Chart Documents [facility] [address] [place] [phone] <No scans attached> Last Filed Vital Signs [...] 3 ENDODONTIC THERAPY, MOLAR TOOTH (EXCLUDING FINAL DRUZE) Routine 12/23/2020 2:00 AM CDT 3 CROWN PFM POST Routine 12/23/2020 2:00 AM CDT 3 LIMITED ORAL EVALUATION - PROBLEM FOCUSED Routine 12/23/2020 2:00 AM CDT PANORAMIC RADIOGRAPHIC IMAGE Routine 12/23/2020 2:00 AM CDT ADDITIONAL X-RAY Routine 12/23/2020 2:00 AM CDT SINGLE X-RAY Routine 12/23/2020 2:00 AM CDT Visit Diagnoses Not on file Insurance [facility] PPO
--- OUTSIDE RECORDS SUMMARY | 2024-11-27 22:33 | XMS_ITS | Encounter Summary ---
Author Organization [facility] Health Address [address] [place] [address] Care Team Providers Care Director Visual Name Role Phone Ruth Chavez Juliane BOATBUILDER WOOD-DIRECTOR [employer] Primary Care Provid er Delmar Cyndee DO Unavailable [phone] Encounter Details Date Type Department Care Team (Late st Contact Info) Description 08/29/2024 Lab Requisition [facility] [address] [place] [address] Luann Hand MD [address] [place] [address] Social History Tobacco Use Types Packs/Day Years [...] and heating? Not hard at all 08/20/2024 [facility] [place] [facility] - Occupational Stress [...] any time in the past 12 m [facility], were you homeless or living in a [facility] (including now)? No 08/20/2024 Sex and Gender [...] Visit [facility] [address] [place] [address] Herber Schrader MD [address] [address] documented as of this encounter Procedures Procedure Name Priority Date/Time Associated Diagnosis Comments SLIDE PREP HISTOLOGY Routine 08/23/2024 2:15 PM CASE LOADER OPERATOR documented in this encounter Results * SLIDE PREP HISTOLOGY (08/23/2024 2:15 PM CASE LOADER OPERATOR) Client Specimen ID # [id number] 08/11 10:20 AM [facility] Number of Slides Received 6 10:20 AM [facility] Comment MMR panel 10:20 AM [facility] Slide Prep Complete Testing is technical only and does not require an interpretation of results. 10:20 AM [facility] Comment:All histochemical an d/or immunohistochemical results are interpreted with controls that demonstrate appropriate staining reactions before reporting results. Note on use of immunocytochemistry reagents: This test was developed and its performance characteristic determined by [facility], Department of Laboratory Medicine. It has not [...] gy (Large Intestine, NOS) 08/23/2024 2:15 PM CASE LOADER OPERATOR 08/29/2024 10:18 AM CASE LOADER OPERATOR Luann Hand MD LAB - PATHOLOGY/CY TOLOGY ORDERABLES [facility] [address] [place] [address] documented in this encounter Visit Diagnoses Not on filedocumented in this encounter Care Teams Director Visual Relationship Specialty Start Date End Date Ruth Chavez March,N-DIRECTOR [employer] [address] [place] [address] PCP - General Nurse Practitioner 08/22/24 Cyndee Jacobsen DO [facility] [place] [address] Resident Hematology and Oncology 09/04/24 documented as of this encounter
--- OUTSIDE RECORDS SUMMARY | 2024-11-27 22:33 | XMS_ITS | CCD ---
Author Organization [facility] [place] Address [address] [place] [address] Care Team Providers Care Heat And Vent Aircraft Mechanic Name Role Phone Unavailable Primary Care Provider [...]
--- OUTSIDE RECORDS SUMMARY | 2024-11-27 22:33 | XMS_ITS | Clinical Summary ---
Author Organization [facility] [place] Address [address] [place] [address] Care Team Providers Care Retail Account Executive Name Role Phone Unavailable Primary Care Provider [...] patient's age to complete this topic Insurance [facility] PPO
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
--- OUTSIDE RECORDS SUMMARY | 2024-11-27 22:34 | XMS_ITS | Referral Summary ---
Author Organization [facility] Address [address] [place] [place] [address] Care Team Providers Care Payment Poster Name Role Phone Ruth Chavez MarchN-DESIGN COORDINATOR Primary Care Provid er Cyndee Jacobsen DO Unavailable [phone] Source Comments [facility],non-owned Affiliates and Associated Physician Practices is amultiple site organization consisting of ambulatory clinics and hospital sitesin [place], [place] and [place]. This disclosure is being madepursuant to the Care Everywhere program and may not contain all information available regarding this patient. Last updated 18.[facility] Encounters Date Type Department Care Team Description 11/24/2024 Orders Only [facility] - Hematology/Onco logy [address] [place] [address] Elizabeth Newby APRN-CNP Malignant neoplasm of ascending colon (HCC) 11/23/2024 Orders Only [facility] - Hematology/Onco log[place] [address] [place] [address] Elizabeth Newby APRN-CNP 10/24/2024 Telephone [facility] - Hematology/Onco logy [address] [place] [address] Matite Tong MD Follow-up 10/23/2024 Orders Only [facility] - Hematology/Onco logy [address] [place] [address] Elizabeth Newby, GREENSKEEPER HEAD-DESIGN COORDINATOR 10/17/2024 Travel 10/17/2024 8:55 AM [employer] CONSULTANT - 10/17/2024 11:59 PM [employer] CONSULTANT Hospital Encounter [facility] [address] [place] [address] Unknown, Provider Discharge Disposition: Home or Self Care 10/17/2024 9:40 AM [employer] CONSULTANT Office Visit [facility] - Hematology/[place] [address] [place] [phone] Cyndee Jacobsen DO Malignant neoplasm of ascending colon (HCC) (Primary Dx); Peritoneal carcinomatosis (HCC); Malignant neoplasm of colon, unspecified part of colon (HCC) 10/12/2024 Orders Only [facility] - Hematology/Onco logy [address] [place] [phone] Mattie Tong MD 10/09/2024 Travel 10/09/2024 2:30 PM [employer] CONSULTANT Office Visit [facility] - GI [address] [facility], [place] [address] Wayne Doss MD Elbeshbeshy, Hany Ahmed, MD [...] long-term use 09/28/2024 Travel 09/28/2024 5:35 PM [employer] CONSULTANT - 09/28/2024 5:39 PM [employer] IN[employer] CONSULTANT Emergency [facility] [address] [place] [address] Discharge Disposition: Left Against Medical Advice/Discontinued Care 09/26/2024 Travel 09/26/2024 1:00 PM [employer] CONSULTANT Office Visit [facility] - Hematology/Onco logy [address] [place] [phone] Newby Elizabeth, GREENSKEEPER HEAD-DESIGN COORDINATOR Malignant neoplasm of ascending colon (HCC) (Primary Dx); Anemia, unspecified type 09/25/2024 Orders Only [facility] - Hematology/Onco logy [address] [place] [phone] Newby, Elizabeth, GREENSKEEPER HEAD-DESIGN COORDINATOR 09/25/2024 Orders Only [facility] - Hematology/Onco logy [address] [place] [phone] Newby Elizabeth, GREENSKEEPER HEAD-DESIGN COORDINATOR 09/25/2024 Orders Only [facility] - Hematology/Onco logy [address] [place] [address] Mattie Tong MD Malignant neoplasm of ascending colon (HCC) 09/21/2024 Travel 09/21/2024 5:57 AM [employer] IN[employer] CONSULTANT - 09/21/2024 9:29 AM [employer] IN[employer] CONSULTANT Hospital Encounter [facility] [address] [place] [address] Víctor Hooper MD Farmer, Adam D, MD [facility] Discharge Disposition: Home or Self Care 09/20/2024 Orders Only [facility] - Hematology/Onco logy [address] [place] [phone] Cyndee Jacobsen DO Peritoneal carcinomatosis (HCC); Malignant neoplasm of colon, unspecified part of colon (HCC) 09/19/2024 Travel 09/19/2024 10:20 AM [employer] CONSULTANT Office Visit [facility] - Hematology/Onco logy [address] [place] [phone] Víctor Hooper MD Weidenbaum, Chloe, DO Malignant neoplasm of ascending colon (HCC) (Primary Dx); Peritoneal carcinomatosis (HCC); Malignant neoplasm of colon, unspecified part of colon (HCC) 09/15/2024 Telephone [facility] - Hematology/Onco logy [address] [place] [address] Cyndee Jacobsen, DO Appointment (Spoke with pt abt appt on Wednesday09/19/24 at 10:20 AM. Told pt there is free manual arts therapist parking and to check in at desk at right upon arrival before going to second floor. Confirmed. ) 09/11/2024 Telephone Transitional Care at [facility] [address] [place] [address] Piper Morrison RNcard punching machine operator 09/02/2024 10:53 PM [employer] CONSULTANT - 09/07/2024 11:18 AM [employer] CONSULTANT Hospital Encounter [facility] Early Admission Unit [address] [place] [address] Sylvester Mathis MD Purdy, Justin, MD Morreale, Peter J III, MD Emergency Medicine Discharge Disposition: Home or Self Care 09/04/2024 9:48 AM [employer] CONSULTANT Anesthesia Event [facility] [address] [place] [address] Imelda Cm MD 09/04/2024 9:19 AM [employer] CONSULTANT - 09/04/2024 9:49 AM [employer] IN[employer] CONSULTANT Surgery [facility] [address] [place] [address] Ian Ellsowrth MD ESOPHAGOGASTRODUODENOSCOPY (EGD) DIAGNOSTIC 09/02/2024 Travel 2024 Telephone [facility] - Hematology/Onco logy [address] [place] [address] Cyndee Jacobsen, Appointment (LVM for pt abt appt on Wednesday09/05/24 at 10:00 AM. Told pt there is free manual arts therapist parking and to check in at desk on right upon arrival then go to second floor. Also told pt happy birthday because it is his bday today. ) 08/31/2024 Telephone [facility] - GI [address] [facility] [place] [address] Jake Mathis MD Results 08/29/2024 Lab Requisition [facility] [address] [place] [phone] Luann Hand MD from Last 3 Months [...] and heating? Not hard at all 09/04/2024 [facility] of Occupat ional Health - Occupational Stress [...] any time in the past 12 m [facility], were you homeless or living in a custodial (including now)? No 09/04/2024 Sex and Gender Information Value Date Recorded Sex Assigned at Not on file Gender Identity Not on file Sexual Orientation Not on file Last Filed Vital Signs Vital Sign Reading Time Taken Comments Blood Pressure 110/71 10/17/2024 9:28 AM [employer] CONSULTANT Pulse 84 10/17/2024 9:28 AM [employer] IN[employer] CONSULTANT Temperature 36.7 C (98 F) 10/17/2024 9:28 AM [employer] INF[employer]URE CONSULTANT Respiratory Rate 20 10/17/2024 9:28 AM [employer] INF[employer] CONSULTANT Oxygen Saturation 99% 10/17/2024 9:28 AM [employer] IN[employer] CONSULTANT Inhaled Oxygen Concentration - - Weight 91.4 kg (201 lb 8 oz) 10/17/2024 9:28 AM [employer] IN[employer] CONSULTANT Height 160 cm (5' 2.99 ) 10/17/2024 9:28 AM [employer] IN[employer] CONSULTANT Body Mass Index 35.7 10/17/2024 9:28 AM [employer] IN[employer] CONSULTANT Functional Status Functional Status Response Date of [...] Office Visit [facility] GI [address] [place] [address], [place] [phone] Herber Schrader MD [address] [place] [address] [place] [address] Goals Goal Patient Goal Type Associated Problems Recent Progress Patient-Stated? Author Medication Management General On track( 024 2:47 PM [employer] CONSULTANT) No Deborah Christian, RN Note: Expected end date: ongoing Interventions: Take all medications as prescribed Let your doctor know right away about any changes in your medications Make sure to request a refill of your medication at least one week prior to your last dose Medical Devices Implanted Type Area Store Custodian Device Identifier Shelf Expiration Date Model / Serial / Lot Port Implinfn Powerport Clrvu Argd La Implanted:Qty: 1 on 09/21/2024 at [facility] [employer] 01/08/2026 [id number] / / [id number] Procedures Procedure Name Priority Date/Time Associated Diagnosis Comments MAGNESIUM BLOOD STAT 10/17/2024 9:09 AM [employer] CONSULTANT PHOSPHORUS BLOOD STAT 10/17/2024 9:09 AM [employer] IN[employer] CONSULTANT CBC W AUTO DIFFERENTIAL STAT 10/17/2024 9:09 AM [employer] INFRA[employer]CTURE CONSULTANT COMPREHENSIVE METABOLIC PANEL STAT 10/17/2024 9:09 AM [employer] IN[employer] CONSULTANT IRON + TRANSFERRIN PANEL Routine 10/17/2024 9:09 AM [employer] IN[employer] CONSULTANT Anemia, unspecified type FERRITIN Routine 10/17/2024 9:09 AM [employer] IN[employer] CONSULTANT Anemia, unspecified type PT-INR [facility] STAT 09/28/2024 10:46 AM [employer] IN[employer] CONSULTANT COMPREHENSIVE METABOLIC PANEL STAT 09/28/2024 10:46 AM [employer] IN[employer] CONSULTANT CBC W AUTO DIFFERENTIAL STAT 09/28/2024 10:46 AM [employer] INFRASTRUCTURE CONSULTANT URINALYSIS W/MICROSCOPIC REFLEX TO CULTURE STAT 09/28/2024 10:46 AM [employer] INF[employer] CONSULTANT IR GILBERTO CATH INSERT Routine 09/21/2024 8:57 AM [employer] IN[employer] CONSULTANT Peritoneal carcinomatosis (HCC) Malignant neoplasm of colon, unspecified part of colon (HCC) GLUCOSE - POINT OF CARE Routine 09/21/2024 6:48 AM [employer] INFRA[employer]CTURE CONSULTANT PT-INR [facility] Routine 09/07/2024 12:23 AM [employer] IN[employer] CONSULTANT PTT [facility] Timed 09/07/2024 12:23 AM [employer] CONSULTANT Ascites due to alcoholic cirrhosis (HCC) CBC W/O DIFFERENTIAL AM Draw 09/07/2024 12:23 AM [employer] IN[employer] CONSULTANT PTT [facility] Timed 09/06/2024 5:28 PM [employer] CONSULTANT Thrombosis of superior vena cava (HCC) GLUCOSE - POINT OF CARE Routine 09/06/2024 10:06 AM [employer] INFRASTRUCTURE CONSULTANT PTT [facility] Routine 09/06/2024 9:27 AM [employer] INFRA[employer]CT[employer] CONSULTANT GLUCOSE - POINT OF CARE Routine 09/06/2024 5:25 AM [employer] INFRASTRUCTURE CONSULTANT BASIC METABOLIC PANEL (CALCIUM TOTAL) AM Draw 09/06/2024 12:47 AM [employer] INFRA[employer]CTURE CONSULTANT GLUCOSE - POINT OF CARE Routine 09/05/2024 9:27 PM [employer] INFRASTRUCTURE CONSULTANT GLUCOSE - POINT OF CARE Routine 09/05/2024 6:27 PM [employer] INFRASTRUCTURE CONSULTANT GLUCOSE - POINT OF CARE Routine 09/05/2024 12:35 PM [employer] INFRASTRUCTURE CONSULTANT GLUCOSE - POINT OF CARE Routine 09/05/2024 6:05 AM [employer] INFRASTRUCTURE CONSULTANT CBC W/O DIFFERENTIAL AM Draw 09/05/2024 1:02 AM [employer] INFRASTRUCTURE CONSULTANT BASIC METABOLIC PANEL (CALCIUM TOTAL) AM Draw 09/05/2024 1:02 AM [employer] INFRASTRUCTURE CONSULTANT GLUCOSE - POINT OF CARE Routine 09/05/2024 12:05 AM [employer] INFRASTRUCTURE CONSULTANT GLUCOSE - POINT OF CARE Routine 09/04/2024 5:51 PM [employer] INFRASTRUCTURE CONSULTANT GLUCOSE - POINT OF CARE Routine 09/04/2024 12:36 PM [employer] INFRASTRUCTURE CONSULTANT [facility] ED EGD FLEX TRANSORAL DX 09/04/2024 9:43 AM [employer] INFRA[employer]CTURE CONSULTANT Melena EGD Routine 09/04/2024 9:26 AM [employer] INFRASTRUCTURE CONSULTANT GLUCOSE - POINT OF CARE Routine 09/04/2024 9:13 AM [employer] INFRASTRUCTURE CONSULTANT GLUCOSE - POINT OF CARE Routine 09/04/2024 6:12 AM [employer] INFRASTRUCTURE CONSULTANT BASIC METABOLIC PANEL (CALCIUM TOTAL) AM Draw 09/04/2024 12:22 AM [employer] INFRASTRUCTURE CONSULTANT Melena CBC W/O DIFFERENTIAL AM Draw 09/04/2024 12:22 AM [employer] INFRASTRUCTURE CONSULTANT Melena PHOSPHORUS BLOOD Routine 09/04/2024 12:2 2 AM [employer] IN[employer] CONSULTANT Melena Malignant neoplasm of colon, unspecified part of colon (HCC) Abdominal pain, generalized GLUCOSE - POINT OF CARE Routine 09/04/2024 12:11 AM [employer] INFRASTRUCTURE CONSULTANT GLUCOSE - POINT OF CARE Routine 09/03/2024 6:14 PM [employer] INFRASTRUCTURE CONSULTANT GLUCOSE - POINT OF CARE Routine 09/03/2024 12:52 PM [employer] INFRASTRUCTURE CONSULTANT BLOOD TYPE VERIFICATION STAT 09/03/2024 9:47 AM [employer] INF[employer] CONSULTANT CT ABDOMEN PELVIS W CONTRAST STAT 09/02/2024 10:39 PM [employer] INF[employer]STRUCTURE CONSULTANT Melena Malignant neoplasm of colon, unspecified part of colon (HCC) Abdominal pain, generalized TYPE + SCREEN PANEL STAT 09/02/2024 9 :38 PM [employer] INFRASTRUCTURE CONSULTANT PT-INR [facility] STAT 09/02/2024 9:38 PM [employer] INFRASTRUCTURE CONSULTANT COMPREHENSIVE METABOLIC PANEL STAT 09/02/2024 9:38 PM [employer] INFRASTRUCTURE CONSULTANT CBC W AUTO DIFFERENTIAL STAT 09/02/2024 9:38 PM [employer] INFRASTRUCTURE CONSULTANT ENDOSCOPY, COLON, DIAGNOSTIC Routine 08/23/2024 1:34 PM [employer] INF[employer]CT[employer] CONSULTANT HEMOGLOBIN A1C Routine 08/23/2024 8:38 AM [employer] INF[employer]CTURE CONSULTANT HEPATITIS C AB SCREEN RFLX NAAT QUANT Routine 08/21/2024 7:37 AM [employer] INF[employer]URE CONSULTANT from Last 3 Months or Most Recently Relevant to Health Maintenance Results * (ABNORMAL) CBC W AUTO DIFFERENTIAL (10/17/2024 9:09 AM [employer] INFRASTRUCTURE CONSULTANT) Only the most recent of3 resultswithin the time period is included. WBC 12.2(H) 4.0 - 10.7 x10E9/L 10/17/2024 9:35 AM [facility] RBC Count 3.78(L) 4.30 - 5.80 x10E12/L 10/17/2024 9:35 AM [facility] Hemoglobin 11.4(L) 13.3 - 17.5 g/dL 10/17/2024 9:35 AM [facility] Hematocrit 33.8(L) 38.7 - 51.1 % 10/17/2024 9:35 AM [facility] MCV 89.4 80.0 - 98.0 fL 10/17/2024 9:35 AM [facility] MCH 30.2 26.7 - 33.6 pg 10/17/2024 9:35 AM [facility] MCHC 33.7 31.7 - 36.3 g/dL 10/17/2024 9:35 AM [facility] RDW-CV 13.1 11.3 - 14.8 % 10/17/2024 9:35 AM [facility] Platelet Count 440(H) 150 - 420 x10E9/L 10/17/2024 9:35 AM [facility] MPV 8.9 7.8 - 11.4 fL 10/17/2024 9:35 AM [facility] Preliminary Absolute Neutrophil 8.74(H) 1.60 - 7.50 x10E9/L 10/17/2024 9:35 AM [facility] Neutrophil % 71.8 41.0 - 74.0 % 10/17/2024 9:35 AM [facility] Lymphocyte % 17.1 17.0 - 47.0 % 10/17/2024 9:35 AM [facility] Monocyte % 8.4 3.0 - 11.0 % 10/17/2024 9:35 AM [facility] Eosinophil % 0.8 0.0 - 7.0 % 10/17/2024 9:35 AM [facility] Basophil % 0.7 0.0 - 1.6 % 10/17/2024 9:35 AM [facility] Immature Granulocytes % 1.2(H) 0.0 - 1.0 % 10/17/2024 9:35 AM [facility] Neutrophil Absolute 8.74(H) 1.60 - 7.50 x10E9/L 10/17/2024 9:35 AM [facility] Lymphocyte Absolute 2.08 1.00 - 4.40 x10E9/L 10/17/2024 9:35 AM [facility] Monocyte Absolute 1.02(H) 0.15 - 1.00 x10E9/L 10/17/2024 9:35 AM [facility] Eosinophil Absolute 0.10 0.00 - 0.60 x10E9/L 10/17/2024 9:35 AM [facility] Basophil Absolute 0.08 0.00 - 0.13 x10E9/L 10/17/2024 9:35 AM [facility] Blood BLOOD SPECIMEN / Unknown Venipuncture / Unknown 10/17/2024 9:09 AM [employer] CONSULTANT 10/17/2024 9:20 AM [facility] Mattie Tong MD LAB - HEMATOLOGY ORD ERABLES [facility] [address] [place] [address], [facility] [phone] * (ABNORMAL) COMPREHENSIVE METABOLIC PANEL (10/17/2024 9:09 AM [facility]) Only the most recent of3 resultswithin the time period is included. BUN 19 7 - 26 mg/dL 10/17/2024 9:59 AM [facility] Creatinine 1.39(H) 0.71 - 1.16 mg/dL 10/17/2024 9:59 AM [facility] Sodium 132(L) 136 - 145 mmol/L 10/17/2024 9:59 AM [facility] Potassium 4.9(H) 3.5 - 4.5 mmol/L 10/17/2024 9:59 AM [facility] Chloride 103 98 - 107 mmol/L 10/17/2024 9:59 AM [facility] CO2 20(L) 22 - 29 mmol/L 10/17/2024 9:59 AM [facility] Glucose 146(H) 70 - 99 mg/dL 10/17/2024 9:59 AM [facility] Calcium 9.4 8.4 - 10.2 mg/dL 10/17/2024 9:59 AM [facility] Protein Total 7.9 6.0 - 8.3 g/dL 10/17/2024 9:59 AM [facility] Albumin 3.3(L) 3.4 - 5.0 g/dL 10/17/2024 9:59 AM [facility] Bilirubin Total 0.6 0.2 - 1.2 mg/dL 10/17/2024 9:59 AM [facility] Alkaline Phosphatase 101 40 - 150 U/L 10/17/2024 9:59 AM [facility] ALT 18 5 - 55 U/L 10/17/2024 9:59 AM [facility] AST 15 5 - 34 U/L 10/17/2024 9:59 AM [facility] Anion Gap 9 6 - 16 10/17/2024 9:59 AM [facility] BUN/Creatinine Ratio 14 7 - 23 10/17/2024 9:59 AM [facility] Osmolality Calculated 279 275 - 295 mOsm/kg 10/17/2024 9:59 AM [facility] Albumin/Globulin Ratio 0.7(L) 1.1 - 2.3 10/17/2024 9:59 AM [facility] eGFR by CKD-EPI 55(L) >=90 mL/min/1.7 3 m2 10/17/2024 9:59 AM [facility] Blood BLOOD SPECIMEN / Unknown Venipuncture / Unknown 10/17/2024 9:09 AM [employer] CONSULTANT 10/17/2024 9:20 AM [facility] Mattie Tong MD LAB - CHEMISTRY TOM JACOBS[facility] Organization Address City/State/ZIP Co de Phone Number [facility] [address] [place] [address], [facility] [phone] * PHOSPHORUS BLOOD (10/17/2024 9:09 AM [facility]) Only the most recent of2 resultswithin the time period is included. Phosphorus 4.1 2.8 - 5.1 mg/dL 10/17/2024 9:59 AM [facility] Blood BLOOD SPECIMEN / Unknown Venipuncture / Unknown 10/17/2024 9:09 AM [employer] CONSULTANT 10/17/2024 9:20 AM [employer] CONSULTANT Mattie Tong MD LAB - CHEMISTRY TOM JACOBSON [address] [address], [place] [phone] * MAGNESIUM BLOOD (10/17/2024 9:09 AM [employer] CONSULTANT) Magnesium 1.6 1.6 - 2.6 mg/dL 10/17/2024 9:59 AM [facility] Blood BLOOD SPECIMEN / Unknown Venipuncture / Unknown 10/17/2024 9:09 AM [employer] CONSULTANT 10/17/2024 9:20 AM [employer] CONSULTANT Mattie Tong MD LAB - CHEMISTRY TOM JACOBSON [address] [address], [place] [phone] * IRON + TRANSFERRIN PANEL (10/17/2024 9:09 AM [employer] CONSULTANT) Iron 58 50 - 175 ug/dL 10/17/2024 10:35 AM [facility] Transferrin 212 174 - 382 mg/dL 10/17/2024 10:35 AM [facility] Transferrin Saturation % 22 16 - 50 % 10/17/2024 10:35 AM [facility] TIBC Calculated 265 240 - 450 ug/dL 10/17/2024 10:35 AM [facility] Blood BLOOD SPECIMEN / Unknown Venipuncture / Unknown 10/17/2024 9:09 AM [employer] CONSULTANT 10/17/2024 9:16 AM [employer] CONSULTANT Elizabeth HAGAN LAB - CHEMISTRY ORD [place]ER [address] [address], [place] [phone] * FERRITIN (10/17/2024 9:09 AM [employer] CONSULTANT) Ferritin 98 22 - 275 ng/mL 10/17/2024 10:35 AM [facility] Blood BLOOD SPECIMEN / Unknown Venipuncture / Unknown 10/17/2024 9:09 AM [employer] CONSULTANT 10/17/2024 9:16 AM [employer] CONSULTANT Elizabeth Newby GREENSKEEPER HEAD-DESIGN COORDINATOR LAB - CHEMISTRY ORD ERABLES [facility] [address] [place] [address], [facility] [phone] * (ABNORMAL) PT-INR [facility] (09/28/2024 10:46 AM [employer] CONSULTANT) Only the most recent of3 resultswithin the time period is included. Pathologist [facility] PT 14.9(H) 12.1 - 14.8 Seconds 09/28/2024 11:19 AM [facility] INR 1.2 See Comment 09/28/2024 11:19 AM [facility] Comment:The suggested therap eutic range for standard coumadin (warfarin) therapy is an INR of 2.0-3.0. For high-risk patients (Mechanical Mitral Valve Prosthesis, etc.), the suggested prophylactic therapeutic range is an INR of 2.5-3.5. Blood BLOOD SPECIMEN / Unknown Venipuncture / Unknown 09/28/2024 10:46 AM [employer] CONSULTANT 09/28/2024 10:50 AM [employer] CONSULTANT Trang Buitrago GREENSKEEPER HEAD-DESIGN COORDINATOR LAB - COAGULA TION ORDERABLES [facility] [address] [place] [address], [place] [phone] * (ABNORMAL) URINALYSIS W/MICROSCOPIC REFLEX TO CULTURE (09/28/2024 10:46 AM [employer] CONSULTANT) Color UA Straw Straw, Yellow 09/28/2024 11:02 AM [facility] Clarity UA Clear Clear 09/28/2024 11:02 AM [facility] Specific [place] UA 1.004(L) 1.005 - 1.030 09/28/2024 11:02 AM [facility] pH UA 6.0 5.0 - 8.0 pH 09/28/2024 11:02 AM [facility] Protein UA Negative Negative 09/28/2024 11:02 AM [facility] Glucose UA Negative Negative 09/28/2024 11:02 AM [facility] Ketone UA Negative Negative 09/28/2024 11:02 AM [facility] Bilirubin UA Negative Negative 09/28/2024 11:02 AM [facility] Blood UA Negative Negative 09/28/2024 11:02 AM [facility] Nitrite UA Negative Negative 09/28/2024 11:02 AM [facility] Leukocyte Esterase Negative Negative 09/28/2024 11:02 AM [facility] Urobilinogen UA Negative Negative mg/dL 09/28/2024 11:02 AM [facility] RBC UA 0-2 None Seen, 0-2, 3-5 /HPF 09/28/2024 11:02 AM [facility] WBC UA 0-5 None Seen, 0-5 /HPF 09/28/2024 11:02 AM [facility] Squamous Epithelial Cells UA None Seen None Seen, 0-2, 3-5 /HPF 09/28/2024 11:02 AM [facility] Urine URINE SPECIMEN OBTAINED BY CLEAN CATCH PROCEDURE / Unknown Collection / Unknown 09/28/2024 10:46 AM [employer] CONSULTANT 09/28/2024 10:50 AM [facility] - 09/28/2024 11:02 AM [employer] CONSULTANT Culture Not Indicated Trang Buitrago GREENSKEEPER HEAD-DESIGN COORDINATOR LAB - URINALY SIS ORDERABLES [facility] [address] [place] [phone], [facility] [phone] * IR Gilberto Cath Insert (09/21/2024 8:57 AM [employer] CONSULTANT) Anatomical Region Laterality Modality Chest X-Ray Angiograph y 09/21/2024 2:46 PM [employer] CONSULTANT Impressions 09/21/2024 5:28 PM [employer] CONSULTANT Impression: Successful placement of a single lumen 8 Swiss x 26 cm chest power port via [...] evaluation, please review the evaluation forms in [employer]. For details on monitored clinical parameters during the intra-service sedation time, please review the procedure nurse documentation in [facility]. > Dictated by Titi Moulton (Nursing Technician) 09/21/2024 2:46 PM Lawanda Weber MD have personally reviewed and interpreted this examination/study. > Interpreting Provider: Lawanda Vergara MD on 09/21/2024 5:28 PM Narrative 09/21/2024 5:28 PM [employer] PROCEDURE: IR GILBERTO CATH INSERT DATE/TIME OF [...] chest. 3.Fluoroscopy-guided placement of single lumen 8 Swiss x 26 cm chest power port via the right internal jugular vein. Fluoroscopic time: 0.8 minutes Procedure details: The procedure, risks, and possible complications were explained to the patient in detail and informed consent was obtained. The patient was placed supine on the angiography table. The right neck and upper chest were prepped and draped in the usual sterile manner. A [employer] functional analyst film of chest was obtained, which was [...] chest. 3.Fluoroscopy-guided placement of single lumen 8 Swiss x 26 cm chestpower port via the right internal jugular vein. Fluoroscopic time: 0.8 minutes Procedure details: The procedure, risks, and possible complications were explained to the patient in detail and informed consent was obtained. The patient wasplaced supine on the angiography table. The right neck and upper chest were prepped and draped in the usual sterile manner. A peoplesoft functional analyst film of chestwas obtained, which was unremarkable. [...] the procedure well [facility]. There were no immediate complicationsassociated with the procedure. Impression: Successful placement of a single lumen 8 Swiss x 26 cmchest power port via the [...] patient evaluation, please reviewthe evaluation forms in [facility]. For details on monitored clinical parameters during the intra-service sedation time, please review the procedurenurse documentation in [facility]. > Dictated by Titi Moulton (Nursing Technician) 09/21/2024 2:46 PM Lawanda Weber MD have personally reviewed and interpreted this examination/study. > Interpreting Provider: Lawanda Vergara MD on 09/21/2024 5:28 PM Víctor Hooper MD IR ORDERABLES * (ABNORMAL) GLUCOSE - POINT OF CARE (09/21/2024 6:48 AM [employer]) Only the most recent of15 resultswithin the time period is included. Glucose WB/POC 138(H) 70 - 99 mg/dL 09/21/2024 6:48 AM [employer] [facility] Specimen Type Venous 09/21/2024 6:48 AM [employer] Blood BLOOD SPECIMEN / Unknown 09/21/2024 6:48 AM [employer] 09/21/2024 6:48 AM [employer] Víctor Hooper MD LAB - POINT OF CARE ORDERABLES [facility] [address] [place] [address], [facility] [phone] * (ABNORMAL) PTT [facility] (09/07/2024 12:23 AM [employer]) Only the most recent of3 resultswithin the time period is included. APTT 68.3(H) 23.0 - 38.4 Seconds 09/07/2024 1:27 AM [facility] Comment:Suggested therapeuti c range for full dose I.V. unfractionated heparin therapy for venous thromboembolism is 71 to 109 seconds. Blood BLOOD SPECIMEN / Unknown Lab Venipuncture / Unknown 09/07/2024 12:23 AM [employer] 09/07/2024 1:04 AM [employer] Hilton Jackson III, MD LAB - COAGULATI ON ORDERABLES [address] [address], [facility] [phone] * (ABNORMAL) CBC W/O DIFFERENTIAL (09/07/2024 12:23 AM [employer]) Only the most recent of3 resultswithin the time period is included. Pathologist [facility] WBC 6.3 4.0 - 10.7 x10E9/L 09/07/2024 1:12 AM [facility] RBC Count 3.46(L) 4.30 - 5.80 x10E12/L 09/07/2024 1:12 AM [facility] Hemoglobin 10.7(L) 13.3 - 17.5 g/dL 09/07/2024 1:12 AM [facility] Hematocrit 32.1(L) 38.7 - 51.1 % 09/07/2024 1:12 AM [facility] MCV 92.8 80.0 - 98.0 fL 09/07/2024 1:12 AM [facility] MCH 30.9 26.7 - 33.6 pg 09/07/2024 1:12 AM [facility] MCHC 33.3 31.7 - 36.3 g/dL 09/07/2024 1:12 AM [facility] RDW-CV 12.5 11.3 - 14.8 % 09/07/2024 1:12 AM [facility] Platelet Count 339 150 - 420 x10E9/L 09/07/2024 1:12 AM [facility] MPV 9.9 7.8 - 11.4 fL 09/07/2024 1:12 AM [facility] Blood BLOOD SPECIMEN / Unknown Lab Venipuncture / Unknown 09/07/2024 12:23 AM [employer] 09/07/2024 1:07 AM [employer] Hilton Jackson III, MD LAB - HEMATOLOG Y ORDERABLES [facility] [address] [place] [address], [facility] [phone] * (ABNORMAL) BASIC METABOLIC PANEL (CALCIUM TOTAL) (09/06/2024 12:47 AM [facility]) Only the most recent of3 resultswithin the time period is included. BUN 9 7 - 26 mg/dL 09/06/2024 2:57 AM [facility] Creatinine 0.98 0.71 - 1.16 mg/dL 09/06/2024 2:57 AM [facility] Sodium 133(L) 136 - 145 mmol/L 09/06/2024 2:57 AM [facility] Potassium 4.1 3.5 - 4.5 mmol/L 09/06/2024 2:57 AM [facility] Chloride 105 98 - 107 mmol/L 09/06/2024 2:57 AM [facility] CO2 19(L) 22 - 29 mmol/L 09/06/2024 2:57 AM [facility] Glucose 140(H) 70 - 99 mg/dL 09/06/2024 2:57 AM [facility] Calcium 8.5 8.4 - 10.2 mg/dL 09/06/2024 2:57 AM [facility] Anion Gap 9 6 - 16 09/06/2024 2:57 AM [facility] BUN/Creatinine Ratio 9 7 - 23 09/06/2024 2:57 AM [facility] Osmolality Calculated 277 275 - 295 mOsm/kg 09/06/2024 2:57 AM [facility] eGFR by CKD-EPI 83(L) >=90 mL/min/1.7 3 m2 09/06/2024 2:57 AM [employer] Blood BLOOD SPECIMEN / Unknown Lab Venipuncture / Unknown 09/06/2024 12:47 AM [employer] 09/06/2024 2:25 AM [employer] Hilton Jackson III, MD LAB - CHEMISTRY ORDERABLES [facility] [address] [place] [address], [facility] [phone] * EGD (09/04/2024 9:26 AM [employer]) Report Endoscopy POC Endoscopy Department Report _ [...] entire procedure. 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 All rights reserved. The codes documented in this report are preliminary and upon wound care physician review may be revised to meet current compliance requirements. Ian Ellsworth, 09/04/2024 10:16:58 AM Note Initiated On: 09/04/2024 9:26 AM Number of Addenda: [id number] [place] [address] [employer] 09/04/2024 9:26 AM [employer] Moncho Zacarias MD GI PROCEDURE ORDERAB LES [facility] [employer] * BLOOD TYPE VERIFICATION (09/03/2024 9:47 AM [employer]) ABO Rh A POS 09/03/2024 10:35 AM [employer] [facility] Blood Bank BLOOD SPECIMEN / Unknown Lab Venipuncture / Unknown 09/03/2024 9:47 AM [employer] 09/03/2024 10:08 AM [employer] Ruth Chavez GREENSKEEPER HEAD-DESIGN COORDINATOR LAB - BLOOD BANK ORDERABLES Performing Organization Address City/[facility]/ZIP Co de Phone Number [facility] [address] [place] [address], [facility] [phone] * CT Abdomen Pelvis W Contrast (09/02/2024 10:39 PM [employer]) Anatomical Region Laterality Modality Abdomen, Pelvis Computed Tomogra phy 09/02/2024 11:2 1 PM [employer] Impressions 09/03/2024 10:26 AM [employer] Impression: 1.Findings consistent with hepatic cirrhosis with [...] by Deni Franklin MD (vice president of talent acquisition). I, Bc Fortune MD have personally reviewed and interpreted this examination/study. > Interpreting Provider: Bc Fortune MD on 09/03/2024 10:26 AM Narrative 09/03/2024 10:26 AM [employer] PROCEDURE: CT ABDOMEN PELVIS W CONTRAST, DATE/TIME OF EXAM: 09/02/2024 10:40 PM, LOCATION [facility] INDICATION: K92.1: Melena C18.9: Malignant neoplasm of [...] DATE/TIME OF EXAM: 09/02/2024 10:40 PM, LOCATION [facility] INDICATION: K92.1: Melena C18.9: Malignant neoplasm of [...] by Deni Franklin MD (vice president of talent acquisition). I, Bc Fortune MD have personally reviewed and interpreted this examination/study. > Interpreting Provider: Bc Fortune MD on 09/03/2024 10:26 AM Eh Bales MD CT ORDERABLES * TYPE + SCREEN PANEL (09/02/2024 9:38 PM [employer]) Antibody Screen NEG 10:21 PM [employer] [facility] ABO Rh A POS 09/02/2024 10:21 PM [employer] [facility] Blood Bank BLOOD SPECIMEN / Unknown Venipuncture / Unknown 09/02/2024 9:38 PM [employer] 09/02/2024 9:45 PM [employer] Eh Bales MD LAB - BLOOD BANK ORD ERABLES [facility] [address] [place] [address], [facility] [phone] * Endoscopy, Colon, Diagnostic (08/23/2024 1:34 PM [employer]) Report Endoscopy POC Endoscopy Department Report _ [...] bowel preparation was evaluated using the BBPS ([place] Bowel Preparation Scale) with scores of: Right [...] non-molina portions. Procedure Code(s): --- Professional --- 45041, Colonoscopy, flexible; with biopsy, single or multiple Diagnosis Code(s): --- Professional --- K64.8, Other hemorrhoids C18.2, Malignant neoplasm of ascending colon K56.690, Other partial intestinal obstruction K57.30, Diverticulosis of large intestine without perforation or abscess without bleeding CPT copyright 2021 [employer]. All rights reserved. The codes documented in this report are preliminary and upon wound care physician review may be revised to meet current compliance requirements. Kerri Finch MD 08/23/2024 3:10:02 PM Note Initiated On: 08/23/2024 1:34 PM Number of Addenda: [id number] [place] [address] [employer] 08/23/2024 1:34 PM [employer] Wayne Doss MD GI PROCEDURE ORDERAB LES Performing Organization Address City/State/[facility] Co de Phone Number [facility] * (ABNORMAL) HEMOGLOBIN A1C (08/23/2024 8:38 AM [employer]) Hemoglobin A1c 8.0(H) <=5.6 % 08/23/2024 12:31 PM [facility] Estimated Average Glucose 183 mg/dL 08/23/2024 12:31 PM [facility] Comment: HbA1c Interpretation: Normal : < 5.7% Pre-diabetes: 5.7-6.4% Diabetes: Equal to or greater than 6.5% Test results diagnostic of diabetes should be repeated for confirmation. Treatment target values recommended by ADA and other clinical organizations should be used to evaluate metabolic control in patients. Reference: [place] [employer], Standards of Care in Diabetes -2020 In patients 70 years and older consider HbA1c target range of 7.0-7.5% (Reference: Panda Thompson et al. JAMDA. 2012) The Sebia assay for the measurement of HbA1c is a National Glycohemoglobin Standardization Program (NGSP) certified method. Blood BLOOD SPECIMEN / Unknown Lab Venipuncture / Unknown 08/23/2024 8:38 AM [employer] 08/23/2024 9:33 AM [employer] Wayne Doss MD LAB - CHEMISTRY TOM JACOBSON [facility] [address] [place] [address], [place] [phone] * HEPATITIS C AB SCREEN RFLX NAAT QUANT (08/21/2024 7:37 AM [employer]) Hepatitis C Antibody Non-react ap Non-reac tive 08/21/2024 8:36 AM [employer] [facility] Comment:Hepatitis C Antibody screen indicates no serologic evidence of past or current infection with Hepatitis C Virus. Patients with unexplained liver disease who are immunocompromised or suspected of having acute Hepatitis C infection may benefit from Nucleic Acid Test ([place]) for Hepatitis C Viral RNA to confirm Hepatitis C status. Blood BLOOD SPECIMEN / Unknown Lab Venipuncture / Unknown 08/21/2024 7:37 AM [employer] 08/21/2024 7:47 AM [employer] Leia Pelaez MD LAB - CHEMISTRY TOM JACOBSON Performing Organization Address City/[facility]/ZIP Co de Phone Number [facility] [address] [place] [address], [facility] [phone] from Last 3 Months or Most Recently Relevant to Health Maintenance Advance Directives * Full Code (Latest Code Status on File) Date Activated Date Inactivated Comments 09/03/2024 4:23 AM 09/07/2024 12:23 PM * Full Code Date Activated Date Inactivated Comments 08/19/2024 8:25 PM 08/25/2024 5:27 PM Care Teams Payment Poster Relationship Specialty Start Date End Date Ruth Chavez March, [employer]EE[employer]-DESIGN COORDINATOR [address] [place] [address] PCP - General Nurse Practitioner 08/22/24 Cyndee Jacobsen DO [facility] [place] [address] Resident Hematology and Oncology 09/04/24
--- OUTSIDE RECORDS SUMMARY | 2024-11-27 22:34 | XMS_ITS ---
Author Organization [facility] Address [address] [place] [address] Care Team Providers Care Medical Sales Specialist Name Role Phone Ruth Chavez MarchN-SLEEVER Primary Care Provid er Cyndee Jacobsen DO Unavailable [phone] Active Problems Problem Noted Date Diagnosed Date [...] (Wellcovorin)o xaliplatin (Eloxatin) Infusion Patient Preference Mattie oTng MD Treatment not started Radiation Treatments * No radiation treatments are documented for this patient in [facility]. Treatments may have been administered in another system. Resolved Problems Problem Noted Date Diagnosed Date Resolved Date Sepsis, due to unspecified o rganism, unspecified whether acute organ dysfunction present 08/17/2024 09/20/2024
== END 2024-11-27 21:43 | disposition left against medical advice (07) ==
LOC: ANHED 22:32
PROVIDERS: Emergency Provider Physician Assistant; PCP Nurse Practitioner
DX: R10.9 Unspecified abdominal pain (principal); K74.60 Unspecified cirrhosis of liver; C18.9 Malignant neoplasm of colon, unspecified; I10 Essential (primary) hypertension; E03.9 Hypothyroidism, unspecified; N40.0 Benign prostatic hyperplasia without lower urinary tract symptoms; Z79.01 Long term (current) use of anticoagulants; Z87.891 Personal history of nicotine dependence; Z90.49 Acquired absence of other specified parts of digestive tract
CPT/HCPCS: 99281